=== PATIENT | male | born 1940 | race Caucasian/White ===

== ENCOUNTER 2017-03-15 14:42 | Inpatient (IN) ==
--- OUTSIDE RECORDS SUMMARY | 2017-03-15 16:07 | External Medical Summary | Continuity Of Care Document ---
:1940 Author Organization [facility] Address [address] [facility] [place] [address] Phone Care Team Providers Name Role Phone LAUREN JAMES, HARMONY Attending Provider CORY JAMES, JOHN Gay Primary Care Provider Results Lab Results Visit/Account #[id number] (October 05, 2016 8:21pm - October 06, 2016 12:46am) Test Result Date/Time CBC WITH REFLEXED MANUAL DIFF WHITE BLOOD COUNT(4.0-11.0 10E3/UL) 14.8 10E3/UL October 05, 2016 8:45pm RED BLOOD COUNT(4.50-5.90 10E6/UL) 4.54 10E6/UL October 05, 2016 8:45pm HEMOGLOBIN(13.5-17.5 G/DL) 14.2 G/DL October 05, 2016 8:45pm HEMATOCRIT(41.0-53.0 %) 43.0 % October 05, 2016 8:45pm MEAN CORPUSCULAR VOLUME(82.0-100.0 FL) 94.7 FL October 05, 2016 8:45pm MEAN CORPUSCULAR HEMOGLOBIN(26.0-34.0 PG) 31.3 PG October 05, 2016 8:45pm MEAN CORPUSCULAR HGB CONC(31.5-36.5 G/DL) 33.0 G/DL October 05, 2016 8:45pm RED CELL DISTRIBUTION WIDTH(11.5-14.5 %) 15.9 % October 05, 2016 8:45pm 777-3: PLATELET COUNT(150-450 10E3/UL) 268 10E3/UL October 05, 2016 8:45pm MEAN PLATELET VOLUME(8.2-12.4 FL) 9.6 FL October 05, 2016 8:45pm DIFF TYPE MANUAL October 05, 2016 8:45pm NEUTROPHIL % (MANUAL)(40-70 %) 79 % October 05, 2016 8:45pm BANDS%(0-3 %) 3 % October 05, 2016 8:45pm LYMPHOCYTES % (MANUAL)(15-45 %) 4 % October 05, 2016 8:45pm MONOCYTES % (MANUAL)(2-10 %) 8 % October 05, 2016 8:45pm EOSINOPHILS % (MANUAL)(0-6 %) 2 % October 05, 2016 8:45pm BASOPHILS % (MANUAL)(0-1 %) 0 % October 05, 2016 8:45pm METAMYELOCYTES %(0-0 %) 4 % October 05, 2016 8:45pm NUCLEATED RBCS (MANUAL)(0-0 %) 0 % October 05, 2016 8:45pm NEUTROPHILS # (MANUAL)(2.5-7.5 10E3/UL) 12.1 10E3/UL October 05, 2016 8:45pm LYMPHOCYTES # (MANUAL)(1.0-4.0 10E3/UL) 0.6 10E3/UL October 05, 2016 8:45pm MONOCYTES # (MANUAL)(0.2-0.8 10E3/UL) 1.2 10E3/UL October 05, 2016 8:45pm EOSINOPHILS # (MANUAL)(0.0-0.4 10E3/UL) 0.3 10E3/UL October 05, 2016 8:45pm BASOPHILS # (MANUAL)(0.0-0.2 10E3/UL) 0.0 10E3/UL October 05, 2016 8:45pm IMMATURE MYELOID CELLS #(0-0 10E3/UL) 0.6 10E3/UL October 05, 2016 8:45pm PLATELET ESTIMATE ADEQUATE October 05, 2016 8:45pm WBC MORPHOLOGY COMMENT NORMAL October 05, 2016 8:45pm RBC MORPHOLOGY COMMENT NORMAL October 05, 2016 8:45pm PLATELET MORPHOLOGY COMMENT NORMAL October 05, 2016 8:45pm PROTHROMBIN TIME WITH INR PROTHROMBIN TIME(12.1-14.0 SEC) 29.8 SEC October 05, 2016 8:45pm 50577-6: INR 2.8 October 05, 2016 8:45pm PARTIAL THROMBOPLASTIN TIME PARTIAL THROMBOPLASTIN TIME(22.2-37.4 SEC) 29.4 SEC October 05, 2016 8:45pm COMPLETE METABOLIC PROFILE GLUCOSE(70-110 MG/DL) 117 MG/DL October 05, 2016 8:45pm BLOOD UREA NITROGEN(6-20 MG/DL) 21 MG/DL October 05, 2016 8:45pm CREATININE(0.50-1.20 MG/DL) 0.70 MG/DL October 05, 2016 8:45pm EST GLOMERULAR FILTRATION RATE(Greater than or equal to 60) Greater than or equal to 60 October 05, 2016 8:45pm Result Comments: If the patient is of -[place] descent/extraction multiply the eGFR value by 1.212 to obtain the actual eGFR. >=60 mg/dL Normal 30-59 mg/dL Moderate Kidney Disease 15-29 mg/dL Severe Kidney Disease <15 mg/dL Kidney Failure BUN CREATININE RATIO(10.0-20.0 RATIO) 30.0 RATIO October 05, 2016 8:45pm SODIUM(135-145 MMOL/L) 133 MMOL/L October 05, 2016 8:45pm POTASSIUM(3.6-5.0 MMOL/L) 4.7 MMOL/L October 05, 2016 8:45pm CHLORIDE(101-111 MMOL/L) 89 MMOL/L October 05, 2016 8:45pm CO2(21-31 MMOL/L) 34 MMOL/L October 05, 2016 8:45pm ANION GAP(8-18) 15 October 05, 2016 8:45pm OSMO CALCULATED(270.0-290.0) 270.4 October 05, 2016 8:45pm CALCIUM(8.5-10.5 MG/DL) 8.8 MG/DL October 05, 2016 8:45pm BILIRUBIN,TOTAL(0.1-1.2 MG/DL) 0.5 MG/DL October 05, 2016 8:45pm ALKALINE PHOSPHATASE(42-121 IU/L) 59 IU/L October 05, 2016 8:45pm ASPARTATE AMINO TRANSFERASE(10-42 IU/L) 30 IU/L October 05, 2016 8:45pm ALANINE AMINOTRANSFERASE(10-60 IU/L) 25 IU/L October 05, 2016 8:45pm TOTAL PROTEIN(6.4-8.2 G/DL) 7.5 G/DL October 05, 2016 8:45pm ALBUMIN(3.5-5.5 G/DL) 3.2 G/DL October 05, 2016 8:45pm GLOBULIN(2.4-3.6) 4.3 October 05, 2016 8:45pm ALBUMIN/GLOBULIN RATIO(0.9-1.8 RATIO) 0.7 RATIO October 05, 2016 8:45pm CARDIAC TROPONIN I CARDIAC TROPONIN I(0.01-0.04 NG/ML) 0.06 NG/ML October 05, 2016 8:45pm Result Comments: REFERENCE RANGES: NEGATIVE < 0.04 NG/ML POSSIBLE MYCARDIAL INVOLVEMENT >/=0.04 NG/ML INTERPRET TROPONIN I RESULT IN LIGHT OF THE TOTAL CLINICAL PRESENTATION INCLUDING CLINICAL HISTORY. ANY CONDITION RESULTING IN MYOCARDIAL INJURY CAN POTENTIALLY ELEVATE TROPONIN I LEVELS ABOVE EXPECTED NORMAL RANGES. NOTE NEW REFERENCE RANGE BETA NATRIURETIC PEPTIDE BETA NATRIURETIC PEPTIDE(0-100 PG/ML) 70 PG/ML October 05, 2016 8:45pm Allergies and Adverse Reactions Allergies and Adverse Reactions Patient Unit Number: [id number] Agent Type Reaction Severity Status IODINATED CONTRAST- ORAL AND IV DYE Drug Allergy throat started to close Severe Active METHOTREXATE Drug Adverse Reaction SKIN CANCERS Severe Active CLAVULANIC ACID Drug Allergy Unknown Unknown Active SULFASALAZINE Drug Allergy caused A-Fib Moderate Active CIPROFLOXACIN Drug Allergy Unknown Unknown Active INFLUENZA VIRUS VACCINE, SPECIFIC Drug Allergy sick for 3 months Moderate Active FAMOTIDINE Drug Allergy Unknown Unknown Active AMOXICILLIN Drug Allergy Unknown Mild Active VANCOMYCIN Drug Allergy rash Moderate Active HYDROXYCHLOROQUINE Drug Allergy sores on legs, feet and mouth Severe Active DRONEDARONE Drug Allergy Unknown Unknown Active Problem List Problem List Patient Unit Number: [id number] Chronic Problems: Code/Condition Comments Documented Start Documented Code(s) Date Resolved Date Rheumatoid arthritis ICD10: M06.9 Rheumatoid arthritis SNOMED: 29505607 Rheumatoid arthritis Non-pressure chronic ulcer of right lower leg, 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 ICD10: L97.911 Non-pressure chronic ulcer of right lower leg, 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eakdown of skin SNOMED: 619901133 Non-pressure chronic ulcer of right lower leg, 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eakdown of skin Lymphedema of both lower extremities ICD10: I89.0 Lymphedema of both lower extremities SNOMED: 69351858454474124 Lymphedema of both lower extremities Elevated LFTs ICD10: R94.5 Elevated LFTs SNOMED: 833002049 Elevated liver function tests Rheumatoid arthritis ICD10: M06.9 Rheumatoid arthritis SNOMED: 91189338 Rheumatoid arthritis Chronic anticoagulation ICD10: Z79.01 Chronic 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 Obstructive sleep apnea on CPAP ICD10: G47.33 Obstructive sleep apnea on CPAP SNOMED: 96614713 Obstructive sleep apnea treated with continuous positive airway pressure (C Hyponatremia ICD10: E87.1 Hyponatremia SNOMED: 71424863 Hyponatremia Bloating ICD10: R14.0 Bloating SNOMED: 630480957 Abdominal bloating Cellulitis ICD10: L03.90 Cellulitis SNOMED: 629207704 Cellulitis 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: 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 SNOMED: 342541119 Squamous cell carcinoma of left lower leg Chronic constipation ICD10: K59.00 Chronic constipation SNOMED: 562903822 Chronic constipation Severe protein-calorie malnutrition ICD10: E43 Severe protein-calorie malnutrition SNOMED: 123033010 Severe protein-calorie malnutrition ([place]han: less than 60% of standard weigh Morbid obesity with BMI of 50.0-59.9, adult ICD10: E66.01 Morbid obesity with BMI of 50.0-59.9, adult SNOMED: 961654835 Morbid obesity with body mass index (BMI) of 50.0 to 59.9 in adult Urinary frequency ICD10: R35.0 Urinary frequency SNOMED: 459587984 Increased frequency of urination Basal cell carcinoma of scalp ICD10: C44.41 Basal cell carcinoma of scalp SNOMED: 957745295 Basal cell carcinoma of scalp Chronic ulcer of leg ICD10: L97.909 Chronic ulcer of leg SNOMED: 72040435 Chronic ulcer of lower extremity Traumatic open wound of lower leg ICD10: S81.809A Traumatic open wound of lower leg SNOMED: 734041283 Traumatic open wound of lower leg AAA (abdominal aortic aneurysm) without rupture ICD10: I71.4 AAA ( abdominal aortic aneurysm) without rupture SNOMED: 29969738 Abdominal aortic aneurysm without rupture Atrial fibrillation ICD10: I48.91 Atrial fibrillation SNOMED: 87258275 Atrial fibrillation Urinary retention ICD10: R33.9 Urinary retention SNOMED: 173488455 Retention of urine Plan of Care Plan Of Care Visit/Account #[id number] (October 05, 2016 8:21pm - October 06, 2016 12:46am) Patient Instructions Return if worse or any concern. Follow-up with your PCP early next week for further evaluation and care. Vital Signs Vital Signs Visit/Account #[id number] (October 05, 2016 8:21pm - October 06, 2016 12:46am) Sign First Result Last Result Code(s) Temperature in Fahrenheit Temperature (Fahrenheit): 98.6 [degF] On September 8:19pm Temperature (Fahrenheit): 98.4 [degF] On October 06, 2016 12: 45am 8310-5 Body Temperature Functional Status Functional and Cognitive Status No Functional Status Data Medications Inpatient/Ordered Medications - Medications administered during hospital visit Visit/Account #[id number] (October 05, 2016 8:21pm - October 06, 2016 12:46am) Medication Route Sig/Schedule Precondition/Indication Comments/ Instructions Codes LASIX INJ(FUROSEMIDE) 100 MG/10 ML INJECTION INTRAVEN NOW Label Comments: 10 ML Furosemide 10 MG/ML Injection (RxNorm): 5052659 Dose: 8 ML MAY INCREASE FALL RISK LASIX INJ (FUROSEMIDE) NDC: 74746585587 Discharge Medications - Medications that patient should continue to take. Review with physician Visit/Account #[id number] (October 05, 2016 8:21pm - October 06, 2016 12:46am) Medication Route Sig/Schedule Precondition/Indication Comments/ Instructions Codes LASIX(FUROSEMIDE) 80 MG TABLET ORAL TWICE A DAY Furosemide 80 MG Oral Tablet [Lasix] (RxNorm): 788025 Dose: 80 MG LASIX (FUROSEMIDE) NDC: 99779491523 ALDACTONE(SPIRONOLACTONE) 50 MG TABLET ORAL DAILY Spironolactone 50 MG Oral Tablet [Aldactone] (RxNorm): 850160 Dose: 50 MG ALDACTONE (SPIRONOLACTONE) NDC: 36036136105 History Of Encounters Encounters Visit/Account #[id number] (October 05, 2016 8:21pm - October 06, 2016 12:46am) Account Physican Of Reason For Visit Diagnosis Start Date/Time Stop Date/ Time Status Record Visit ER HARMOYN AGUILAR MD ANKLE SWELLING Not Available Oct 05, 2016 8:21pm Oct 06, 2016 12:46am History of Procedures Procedure List No procedures recorded. Discharge Instructions Discharge Instructions Visit/Account #[id number] (October 05, 2016 8:21pm - October 06, 2016 12:46am) DISCHARGE INSTRUCTIONS Physician Documentation Social History Social History No Social History Data. Immunizations Immunizations Patient Unit Number: [id number] Immunizations No immunizations recorded.
--- OUTSIDE RECORDS SUMMARY | 2017-03-15 16:07 | External Medical Summary | Summary of Care ---
:1940 Author Name Chrissy Estrada Address [address] Unavailable [place], [place] [id number] Care Team Providers Name Role Phone Chrissy Estrada Unavailable Unavailable Zach Oliver M.D. Unavailable Unavailable Trae Pearson Primary Care Provider Unavailable Unavailable Unavailable Unavailable Functional Status Functional Status Health Issues Name Dates Details Functional status health issues are not documented Status: Cognitive Status Health Issues Name Dates Details Cognitive status health issues are not documented Status: Problems Name Dates Details Post-operative infection (998.59, T81.4XXA) Status: Active Squamous cell carcinoma of scalp (173.42, C44.42) Status: Active Skin ulcer of right ankle, 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eakdown of skin (707.13, L97.311) Status: Active Actinic keratosis (702.0, L57.0) Status: Active Medications Name Dates Details CoQ-10 400 MG Oral Capsule TAKE 1 CAPSULE DAILY WITH A MEAL. Refills: 0 Started 22-Jan-2015 ActiveCalcium 250 MG Oral Capsule Refills: 0 Started 22-Jan-2015 ActiveMagnesium Oxide 250 MG Oral Tablet Refills: 0 Started 22-Jan-2015 ActiveVitamin D3 1000 UNIT Oral Capsule Refills: 0 Started 22-Jan-2015 ActiveAscorbic Acid 1000 MG Oral Tablet TAKE 1 TABLET DAILY. Refills: 0 Started 22-Jan-2015 ActiveTrexall 10 MG Oral Tablet 2.5 tablets weekly Refills: 0 Started 22-Jan-2015 ActiveBumetanide 2 MG Oral Tablet TAKE 2 TABLET Weekly Refills: 0 Started 22-Jan-2015 ActiveTraMADol HCl - 50 MG Oral Tablet TAKE 2 TABLETS EVERY 6 HOURS. Refills: 0 Started 22-Jan-2015 ActiveFolic Acid 1 MG Oral Tablet Refills: 0 Started 22-Jan-2015 ActiveZinc 100 MG Oral Tablet Refills: 0 Started 22-Jan-2015 ActiveWarfarin Sodium 5 MG Oral Tablet TAKE 1 TABLET EVERY OTHER DAY. Quantity: 30 Refills: 0 Started 22-Jan-2015 ActivePredniSONE 5 MG Oral Tablet Refills: 0 Started 22-Jan-2015 ActiveAspirin 81 MG Oral Tablet Refills: 0 Started 22-Jan-2015 ActiveBacitracin 500 UNIT/GM External Ointment APPLY SPARINGLY TO AFFECTED AREA(S) 3 TIMES A DAY x 10 days and as prn Quantity: 1 Refills: 0 Zach Oliver M.D. Started 03-Feb-2015 [id number] GM Tube Hydrocodone-Acetaminophen 10-325 MG Oral Tablet TAKE 1 TABLET EVERY 4 TO 6 HOURS NEEDED FOR PAIN. Quantity: 60 Refills: 0 Zach Oliver M.D. Started 10-Feb-2015 ActiveClindamycin Phosphate 1 % External Gel APPLY AND GENTLY MASSAGE INTO AFFECTED AREA(S) TWICE DAILY. Quantity: 1 Refills: 1 Zach Oliver M.D. Started 17-Mar-2015 [id number] GM Tube Clindamycin HCl - 150 MG Oral Capsule TAKE 1 CAPSULE 3 times daily Quantity: 270 Refills: 0 Zach Oliver M.D. Started 14-Apr-2015 ActiveNormal Saline Flush 0.9 % Intravenous Solution use as directoed Refills: 0 Zach Oliver M.D. Started 02-Jun-2015 ActiveMupirocin 2 % External Ointment APPLY SPARINGLY TO AFFECTED AREA(S) TWICE DAILY Quantity: 1 Refills: 2 Chrissy Chen Started 02-Jun-2015 [id number] GM Tube Allergies and Adverse Reactions Name Dates Details hydroxychloroquine Status: Active Influenza Virus Vaccine Whole Status: Active Iodine SOLN Status: Active Penicillins Status: Active Sulfa Drugs Status: Active Past Medical History Name Dates Details History of malignant neoplasm of skin (V10.83, Z85.828) Status: Resolved Procedures Procedure Dates Details Procedures not documented Immunization Name Dates Details Immunizations not documented Family History Unknown Family Member Name Dates Details No pertinent family history Comments: Family History Status: Active Mother Name Dates Details No pertinent family history Status: Active Father Name Dates Details No pertinent family history Status: Active Social History Name Dates Details Smoking StatusFormer smoker Vital Signs Date Test Result Details No Known Vitals to report Results Date Description Value Details Results not documented Plan of Care Planned Observations Name Dates Details Planned Goals not documented Goal Planned Encounters Appointment; Provider: Chrissy Chen On 15:30 Instructions Instructions not documented Encounters Appointment; Chrissy Chen On 02-Jun-2015 Encounter Diagnosis: Problem not documented 15:15 Appointment; Zach Oliver On 02-Jun-2015 Encounter Diagnosis: Problem not documented 13:45 Appointment; Zach Oliver On 14-Apr-2015 Encounter Diagnosis: Problem not documented 14:45 Appointment; Zach Oliver On 17-Mar-2015 Encounter Diagnosis: Problem not documented 14:30 Appointment; Zach Oliver On 03-Mar-2015 Encounter Diagnosis: Problem not documented 15:15 Appointment; Zach Oliver On 24-Feb-2015 Encounter Diagnosis: Problem not documented 14:00 Appointment; Zach Oliver On 17-Feb-2015 Encounter Diagnosis: Problem not documented 13:00 Appointment; Zach Oliver On 10-Feb-2015 Encounter Diagnosis: Problem not documented 14:30 Appointment; Zach Oliver On 03-Feb-2015 Encounter Diagnosis: Problem not documented 14:15 Appointment; Zach Oliver On 22-Jan-2015 Encounter Diagnosis: Problem not documented 14:30 Appointment; Chrissy Chen On 12-Jan-2015 Encounter Diagnosis: Problem not documented 15:00
--- OUTSIDE RECORDS SUMMARY | 2017-03-15 16:07 | External Medical Summary | Summary of Care ---
:1940 Author Name Zach Oliver M.D. Address [address] [place], [place] [id number] Care Team Providers Name Role Phone Zach Oliver M.D. Unavailable Unavailable rTae Pearson Primary Care Provider Unavailable Unavailable Unavailable Unavailable Functional Status Functional Status Health Issues Name Dates Details Functional status health issues are not documented Status: Cognitive Status Health Issues Name Dates Details Cognitive status health issues are not documented Status: Problems Name Dates Details Actinic keratosis (702.0, L57.0) Status: Active Post-operative infection (998.59, T81.4XXA) Status: Active Squamous cell carcinoma of scalp (173.42, C44.42) Status: Active Medications Name Dates Details CoQ-10 [...] Refills: 0 Zach Oliver M.D. Started 03-Feb-2015 [id number] GM Tube Hydrocodone-Acetaminophen 10-325 MG Oral Tablet TAKE 1 TABLET EVERY 4 TO 6 HOURS NEEDED FOR PAIN. Quantity: 60 Refills: 0 Zach Oliver M.D. Started 10-Feb-2015 ActiveClindamycin Phosphate 1 % External Gel APPLY AND GENTLY MASSAGE INTO AFFECTED AREA(S) TWICE DAILY. Quantity: 1 Refills: 1 Zach Oliver M.D. Started 17-Mar-2015 [id number] GM Tube Clindamycin HCl - 150 MG Oral Capsule TAKE 1 CAPSULE 3 times daily Quantity: 270 Refills: 0 Zach Oliver M.D. Started 14-Apr-2015 Active Allergies and Adverse Reactions Name Dates Details [...] smoker Vital Signs Date Test Result Details 14-Apr-2015 15:07 BP Systolic 145 mm[Hg] Status: BP Diastolic 93 mm[Hg] Status: Temperature 97.9 f Status: Heart Rate 89 /min Status: Height 68 in Status: Weight 275 lb Status: Body Mass Index Calculated 41.81 kg/m2 Status: Body Surface Area Calculated 2.34 m2 Status: 17-Mar-2015 14:45 BP Systolic 163 mm[Hg] Status: BP Diastolic 101 mm[Hg] Status: Heart Rate 73 /min Status: Respiration Rate 18 /min Status: Results Date Description Value Details Results not documented Plan of Care Planned Observations Name Dates Details Planned Goals not documented Goal Planned Encounters Appointment; Provider: Zach Oliver On 16-Jun-2015 14:00 Instructions Instructions not documented Encounters Appointment; Zach Oliver On 14-Apr-2015 Encounter Diagnosis: [...]
--- OUTSIDE RECORDS SUMMARY | 2017-03-15 16:07 | External Medical Summary | Summary of Care ---
:1940 Author Name Chrissy Estrada Address [address] Unavailable [place], [place] [id number] Care Team Providers Name Role Phone Chrissy Estrada Unavailable Unavailable Benito Corona, Zach Unavailable Unavailable Trae Pearson Unavailable Unavailable Unavailable Unavailable Unavailable Functional Status Functional Status Health Issues Name Dates Details Functional status health issues are not documented Status: Cognitive Status Health Issues Name Dates Details Cognitive status health issues are not documented Status: Problems Name Dates Details Post-operative infection (998.59, T81.4XXA) Status: Active Skin ulcer of right ankle, 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eakdown of skin (707.13, L97.311) Status: Active Basal cell carcinoma of skin of face (173.31, C44.310) Status: Active 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 Refills: 0 Start 22-Jan-2015 Active Calcium 250 MG Oral Capsule Refills: 0 Start 22-Jan-2015 Active Magnesium Oxide 250 MG Oral Tablet Refills: 0 Start 22-Jan-2015 Active Vitamin D3 1000 UNIT Oral Capsule Refills: 0 Start 22-Jan-2015 Active Ascorbic Acid 1000 MG Oral Tablet TAKE 1 TABLET DAILY. Refills: 0 Start 22-Jan-2015 Active Trexall 10 MG Oral Tablet 2.5 tablets weekly Refills: 0 Start 22-Jan-2015 Active Bumetanide 2 MG Oral Tablet TAKE 2 TABLET Weekly Refills: 0 Start 22-Jan-2015 Active TraMADol HCl - 50 MG Oral Tablet TAKE 2 TABLETS EVERY 6 HOURS. Refills: 0 Start 22-Jan-2015 Active Folic Acid 1 MG Oral Tablet Refills: 0 Start 22-Jan-2015 Active Zinc 100 MG Oral Tablet Refills: 0 Start 22-Jan-2015 Active Warfarin Sodium 5 MG Oral Tablet TAKE 1 TABLET EVERY OTHER DAY. Quantity: 30 Refills: 0 Start 22-Jan-2015 Active PredniSONE 5 MG Oral Tablet Refills: 0 Start 22-Jan-2015 Active Aspirin 81 MG TABS Refills: 0 Start 22-Jan-2015 Active Bacitracin 500 UNIT/GM External Ointment APPLY SPARINGLY TO AFFECTED AREA(S) 3 TIMES A DAY x 10 days and as prn Quantity: 1 Refills: 0 Zach Oliver M.D. Start 03-Feb-2015 Active 30 GM Tube Hydrocodone-Acetaminophen 10-325 MG Oral Tablet TAKE 1 TABLET EVERY 4 TO 6 HOURS NEEDED FOR PAIN. Quantity: 60 Refills: 0 Zach Oliver M.D. Start 10-Feb-2015 Active Clindamycin Phosphate 1 % External Gel APPLY AND GENTLY MASSAGE INTO AFFECTED AREA(S) TWICE DAILY. Quantity: 1 Refills: 1 Zach Oliver M.D. Start 17-Mar-2015 Active 30 GM Tube Clindamycin HCl - 150 MG Oral Capsule TAKE 1 CAPSULE 3 times daily Quantity: 270 Refills: 1 Chrissy Estrada Start 14-Apr-2015 Active Normal Saline Flush 0.9 % Intravenous Solution use as directoed Refills: 0 Zach Oliver M.D. Start 02-Jun-2015 Active Mupirocin 2 % External Ointment APPLY SPARINGLY TO AFFECTED AREA(S) TWICE DAILY Quantity: 1 Refills: 2 April P.Chrissy Doan Start 02-Jun-2015 Active 22 GM Tube Fluorouracil 5 % External Cream APPLY A THIN LAYER TO AFFECTED AREA(S) ON FOREHEAD AND SCALP NIGHTLY x 4 WEEKS Quantity: 1 Refills: 1 April P.Chrissy Doan Start 10-May-2016 Active 40 GM Tube Allergies and Adverse Reactions Name Dates Details hydroxychloroquine (Allergy) Status: Active Influenza Virus Vaccine Whole (Allergy) Status: Active Iodine SOLN (Allergy) Status: Active Penicillins (Allergy) Status: Active Sulfa Drugs (Allergy) Status: Active Vancomycin HCl SOLR (Allergy) Status: Active Past Medical History Name Dates [...] Status: Active Social History Name Dates Details - Status: Smoking Status Name Dates Details Former smoker Vital Signs Date Test Result Details No Known Vitals to report Results Date Description Value Details Results not documented Plan of Care Name Dates Details Planned Observations Planned Goals not documented Planned Encounters Appointment; Provider: Wendy Guadarrama On 14:45 Interventions Provided Medication ChangesClindamycin HCl - 150 MG Oral Capsule - Renew Instructions Name Dates Details Instructions not documented Encounters Appointment; Chrissy Chen P.A. On 08-Jun-2016 Encounter Diagnosis: Problem not documented 14:45 Appointment; Reji Comer M.D.|ALEJANDRO|Chloe,ALEJANDRO|hCloe,ALEJANDRO, On 23-May-2016 Encounter Diagnosis: Problem not documented 14:45 Appointment; Chrissy Chen P.A. On 10-May-2016 Encounter Diagnosis: Problem not documented 15:00 Appointment; Chrissy Chen P.A. On 22-Mar-2016 Encounter Diagnosis: Problem not documented 13:00 Appointment; Chrissy Chen P.A. On 08-Feb-2016 Encounter Diagnosis: Problem not documented 14:45 Appointment; Chrissy Chen P.A. On 14-Dec-2015 Encounter Diagnosis: Problem not documented 14:30 Appointment; Ghulam Veras M.D. On 22-Nov-2015 Encounter Diagnosis: Problem not documented 13:00 Appointment; Ghulam Veras M.D. On 10-Nov-2015 Encounter Diagnosis: Problem not documented 13:30 Appointment; Chrissy Chen P.A. On Encounter Diagnosis: Problem not documented 15:30 Appointment; Chrissy Chen P.A. On 02-Jun-2015 Encounter Diagnosis: Problem not documented 15:15 Appointment; Zach Oliver M.D. On 02-Jun-2015 Encounter Diagnosis: Problem not documented 13:45 Appointment; Zach Oliver M.D. On 14-Apr-2015 Encounter Diagnosis: Problem not documented 14:45 Appointment; Zach Oliver M.D. On 17-Mar-2015 Encounter Diagnosis: Problem not documented 14:30 Appointment; Zach Olvier M.D. On 03-Mar-2015 Encounter Diagnosis: Problem not documented 15:15 Appointment; Zach Oliver M.D. On 24-Feb-2015 Encounter Diagnosis: Problem not documented 14:00 Appointment; Zach Oliver M.D. On 17-Feb-2015 Encounter Diagnosis: Problem not documented 13:00 Appointment; Zach Oliver M.D. On 10-Feb-2015 Encounter Diagnosis: Problem not documented 14:30 Appointment; Zach Oliver M.D. On 03-Feb-2015 Encounter Diagnosis: Problem not documented 14:15 Appointment; Zach Oliver M.D. On 22-Jan-2015 Encounter Diagnosis: Problem not documented 14:30 Appointment; Chrissy Chen P.A. On 12-Jan-2015 Encounter Diagnosis: Problem not documented 15:00"
[2017-03-15] MEDS ORDERED: WARFARIN - PHARMACY CONSULT MC ONE (16:08)
--- OUTSIDE RECORDS SUMMARY | 2017-03-15 16:08 | External Medical Summary | Summary of Care ---
:1940 Author Name Zach Oliver M.D. Address [address] [place], [place] [id number] Care Team Providers Name Role Phone Zach Oliver M.D. Unavailable Unavailable Trae Pearson [...] (998.59, T81.4XXA) Status: Active Squamous cell carcinoma (199.1, C80.1) Status: Active Medications Name Dates Details CoQ-10 [...] Refills: 0 Zach Oliver M.D. Started 03-Feb-2015 [id number] GM Tube Hydrocodone-Acetaminophen 10-325 MG Oral Tablet TAKE 1 TABLET EVERY 4 TO 6 HOURS NEEDED FOR PAIN. Quantity: 60 Refills: 0 Zach Oliver M.D. Started 10-Feb-2015 Active Allergies and Adverse Reactions Name Dates Details hydroxychloroquine Status: Active Influenza Virus Vaccine Whole Status: Active Iodine SOLN Status: Active Penicillins Status: Active Sulfa Drugs Status: Active Procedures Procedure Dates Details Procedures not documented [...] smoker Vital Signs Date Test Result Details 03-Feb-2015 13:47 BP Systolic 158 mm[Hg] Status: BP Diastolic 88 mm[Hg] Status: Temperature 97.7 f Status: Heart Rate 90 /min Status: Height 68 in Status: Weight 278.5 lb Status: Body Mass Index Calculated 42.35 kg/m2 Status: Body Surface Area Calculated 2.35 m2 Status: Results Date Description Value Details Results not documented Plan of Care Planned Observations Name Dates Details Planned Goals not documented Goal Planned Encounters Appointment; Provider: Zach Oliver On 03-Mar-2015 15:15 Instructions Instructions not documented Encounters Appointment; Zach Oliver On 24-Feb-2015 Encounter Diagnosis: [...]
--- OUTSIDE RECORDS SUMMARY | 2017-03-15 16:08 | External Medical Summary | Summary of Care ---
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 Started 03-Feb-2015 [id number] GM Tube Hydrocodone-Acetaminophen 10-325 MG Oral Tablet TAKE 1 TABLET EVERY 4 TO 6 HOURS NEEDED FOR PAIN. Quantity: 60 Refills: 0 Zach Oliver M.D. Started 10-Feb-2015 ActiveClindamycin Phosphate 1 % External Gel APPLY AND GENTLY MASSAGE INTO AFFECTED AREA(S) TWICE DAILY. Quantity: 1 Refills: 1 Zach Oliver M.D. Started 17-Mar-2015 [id number] GM Tube Clindamycin HCl - 150 MG Oral Capsule TAKE 1 CAPSULE 3 times daily Quantity: 270 Refills: 0 Chrissy Chen P.ABrigid Started 14-Apr-2015 ActiveNormal Saline Flush 0.9 % Intravenous Solution use as directoed Refills: 0 Zach Oliver M.D. Started 02-Jun-2015 ActiveMupirocin 2 % External Ointment APPLY SPARINGLY TO AFFECTED AREA(S) TWICE DAILY Quantity: 1 Refills: 2 Chrissy Chen P.ABrigid Started 02-Jun-2015 [id number] GM Tube Allergies and Adverse Reactions Name [...] not documented Goal Planned Encounters Appointment; Provider: Ghulam Veras On 10-Nov-2015 13:30 Instructions Instructions not documented Encounters Appointment; Chrissy Chen On Encounter Diagnosis: Problem not documented 15:30 Appointment; Chrissy Chen On 02-Jun-2015 Encounter Diagnosis: [...]
--- OUTSIDE RECORDS SUMMARY | 2017-03-15 16:08 | External Medical Summary | Summary of Care ---
:1940 Author Name Zach Oliver M.D. Address [address], [place] [id number] Care Team Providers Name Role Phone Zach [...] EVERY 6 HOURS. Refills: 0 Started 22-Jan-2015 ActiveHydrocodone-Acetaminophen 7.5-325 MG Oral Tablet Refills: 0 Started 22-Jan-2015 ActiveFolic Acid 1 MG Oral Tablet Refills: 0 Started 22-Jan-2015 ActiveZinc 100 MG Oral Tablet Refills: 0 Started 22-Jan-2015 ActiveWarfarin Sodium 5 MG Oral Tablet TAKE 1 TABLET EVERY OTHER DAY. Quantity: 30 Refills: 0 Started 22-Jan-2015 ActivePredniSONE 5 MG Oral Tablet Refills: 0 Started 22-Jan-2015 ActiveAspirin 81 MG Oral Tablet Refills: 0 Started 22-Jan-2015 ActiveClindamycin HCl - 300 MG Oral Capsule TAKE 1 CAPSULE 3 times daily for 10 days Quantity: 30 Refills: 0 Zach Oliver M.D. Started 03-Feb-2015 Ended 13-Feb-2015 ActiveBacitracin 500 UNIT/GM External Ointment APPLY SPARINGLY TO AFFECTED AREA(S) 3 TIMES A DAY x 10 days and as prn Quantity: 1 Refills: 0 Zach Oliver M.D. Started 03-Feb-2015 [id number] GM Tube Allergies and Adverse Reactions Name [...] Body Surface Area Calculated 2.35 m2 Status: 22-Jan-2015 14:51 Temperature 97.8 f Status: Heart Rate 80 /min Status: Weight 280 lb Status: Results Date Description Value Details Results not documented Plan of Care Planned Observations Name Dates Details Planned Goals not documented Goal Planned Encounters Appointment; Provider: Zach Oliver On 10-Feb-2015 14:30 Instructions Instructions not documented Encounters Appointment; Zach Oliver On 03-Feb-2015 Encounter Diagnosis: Problem not documented 14:15 Appointment; Zach Oliver On 22-Jan-2015 Encounter Diagnosis: Problem not documented 14:30 Appointment; Chrissy Chen On 12-Jan-2015 Encounter Diagnosis: Problem not documented 15:00
--- OUTSIDE RECORDS SUMMARY | 2017-03-15 16:08 | External Medical Summary | Summary of Care ---
:1940 Author Name Nahomi Corona, ALEJANDRO, ,, F Reji Address Unavailable Unavailable , Care Team Providers Name Role Phone Chrissy Estrada Unavailable Unavailable Zach Oliver M.D. 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 Medications Name Dates Details CoQ-10 [...] 4 WEEKS Quantity: 1 Refills: 1 April P.hCrissy Doan Start 10-May-2016 Active 40 GM Tube Allergies and Adverse Reactions Name Dates Details hydroxychloroquine (Allergy) Status: Active Influenza Virus Vaccine Whole (Allergy) Status: Active Iodine SOLN (Allergy) Status: Active Penicillins (Allergy) Status: Active Sulfa Drugs (Allergy) Status: Active Past Medical History Name [...] smoker Vital Signs Date Test Result Details 23-May-2016 16:18 BP Systolic 138 mm[Hg] Status: Comments: Location: ; Position: BP Diastolic 71 mm[Hg] Status: Comments: Location: ; Position: Temperature 97.3 f Status: Comments: Method: Heart Rate 83 /min Status: Comments: Location: ; Weight 297 lb Status: Body Mass Index Calculated 45.16 kg/m2 Status: Body Surface Area Calculated 2.42 m2 Status: Results Date Description Value Details Results not documented Plan of Care Name Dates Details Planned Observations Planned Goals not documented Planned Encounters Appointment; Provider: Wendy Guadarrama On 21-Jun-2016 14:30 Appointment; Provider: Reji Comer M.D.|DEYSI,DEYSI,ALEJANDRO, On Jun-2016 14:00 Appointment; Provider: Wendy Guadarrama On 08-Jun-2016 14:45 Instructions Name Dates Details Instructions not documented Encounters Appointment; Chrissy Chen P.A. On 10-May-2016 Encounter [...] documented 14:30 Appointment; Zach Oliver M.D. On 03-Mar-2015 Encounter Diagnosis: Problem not [...]
--- OUTSIDE RECORDS SUMMARY | 2017-03-15 16:08 | External Medical Summary | Summary of Care ---
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 Start 02-Jun-2015 Active Mupirocin 2 % External Ointment APPLY SPARINGLY TO AFFECTED AREA(S) TWICE DAILY Quantity: 1 Refills: 2 April P.A.Chrissy Start 02-Jun-2015 Active 22 GM Tube Allergies and Adverse Reactions Name Dates Details hydroxychloroquine (Allergy) Status: Active Influenza Virus Vaccine Whole (Allergy) Status: Active Iodine SOLN (Allergy) Status: Active Penicillins (Allergy) Status: Active Sulfa Drugs (Allergy) Status: Active Past Medical History Name Dates Details History of malignant neoplasm of skin (V10.83, Z85.828) Status: Resolved Procedures Procedure Dates Details ULTRASOUND LEG VEINS RIGHT Ordered: 22-Mar-2016 Immunization Name Dates Details Immunizations not documented [...] Details Planned Observations Planned Goals not documented Interventions Provided Medication ChangesClindamycin HCl - 150 MG Oral Capsule - RenewLabs/Procedures/ ImagingULTRASOUND LEG VEINS RIGHT; To be Done: 22 Mar 2016 Instructions Name Dates Details Instructions not documented Encounters Appointment; Chrissy Chen P.A. On 08-Feb-2016 Encounter [...]
--- OUTSIDE RECORDS SUMMARY | 2017-03-15 16:09 | External Medical Summary | Summary of Care ---
:1940 Author Name Chrissy Estrada Address [address] Unavailable [place], [place] [id number] Care Team Providers Name Role Phone Chrissy [...] Squamous cell carcinoma of skin of left samaritan (173.32, C44.329) Status: Active Squamous cell carcinoma [...] 4 WEEKS Quantity: 1 Refills: 1 April Lepe.Chrissy Doan Start 10-May-2016 Active 40 GM Tube [...] Planned Encounters Appointment; Provider: Wendy Guadarrama On 15:30 Instructions Name Dates Details Instructions not documented Encounters Appointment; Chrissy Chen P.A. On 12-Jul-2016 Encounter Diagnosis: Problem not documented 15:15 Appointment; Chrissy Chen P.A. On 08-Jun-2016 Encounter Diagnosis: Problem not documented 14:45 Appointment; Reji Comer M.D.|COCOP|Chloe,FACP|Chloe,FACP, On 23-May-2016 Encounter Diagnosis: Problem not documented [...]
--- OUTSIDE RECORDS SUMMARY | 2017-03-15 16:09 | External Medical Summary | Continuity Of Care Document ---
:1940 Author Organization [facility] Address [address] [place] [address] Phone Care Team Providers Name Role Phone JAN JAMES, CRISTEL Garcia Consulting Provider UNASSIGNED, ED PHYSICIAN Unavailable Unavailable KOKO JAMES, STACEY Mike Consulting Provider CORY JAMES, JOHN Gay Primary Care Provider SANDY JAMES, ARASELI Mike Attending Provider Results Lab Results Visit/Account #[id number] (April 10, 2016 10:06pm - April 13, 2016 3: 56pm) Test Result Date/Time CREATININE,POINT OF CARE POC CREATININE(0.6-1.3 MG/DL) 0.8 MG/DL April 10, 2016 10:27pm 98471-2: EST GLOMERULAR FILTRATION RATE(Greater than or equal to 60) Greater than 60 April 10, 2016 10:27pm POC LACTIC ACID VENOUS POC LACTIC ACID VENOUS(0.90-1.70 MMOL/L) 3.70 MMOL/L April 10, 2016 10: 25pm 1.58 MMOL/L April 11, 2016 12:38am 20576-9: COMPLETE BLOOD COUNT WITH DIFF WHITE BLOOD COUNT(4.0-11.0 10E3/UL) 13.5 10E3/UL April 10, 2016 10:26pm RED BLOOD COUNT(4.50-5.90 10E6/UL) 5.09 10E6/UL April 10, 2016 10:26pm HEMOGLOBIN(13.5-17.5 G/DL) 15.3 G/DL April 10, 2016 10:26pm HEMATOCRIT(41.0-53.0 %) 48.0 % April 10, 2016 10:26pm MEAN CORPUSCULAR VOLUME(82.0-100.0 FL) 94.3 FL April 10, 2016 10:26pm 63588-7: MEAN CORPUSCULAR HEMOGLOBIN(26.0-34.0 PG) 30.1 PG April 10, 2016 10:26pm MEAN CORPUSCULAR HGB CONC(31.5-36.5 G/DL) 31.9 G/DL April 10, 2016 10:26pm RED CELL DISTRIBUTION WIDTH(11.5-14.5 %) 15.8 % April 10, 2016 10:26pm 777-3: PLATELET COUNT(150-450 10E3/UL) 170 10E3/UL April 10, 2016 10:26pm MEAN PLATELET VOLUME(8.2-12.4 FL) 9.9 FL April 10, 2016 10:26pm 770-8: NEUTROPHILS % (AUTO)(40-70 %) 86 % April 10, 2016 10:26pm LYMPHOCYTES % (AUTO)(15-45 %) 5 % April 10, 2016 10:26pm 5905-5: MONOCYTES % (AUTO)(2-10 %) 6 % April 10, 2016 10:26pm 713-8: EOSINOPHILS % (AUTO)(0-6 %) 0 % April 10, 2016 10:26pm 706-2: BASOPHILS % (AUTO)(0-1 %) 0 % April 10, 2016 10:26pm 72995-9: IMMATURE GRANS % (AUTO)(0-0 %) 2 % April 10, 2016 10:26pm NUCLEATED RBCS (AUTO)(0-0 %) 0 % April 10, 2016 10:26pm 751-8: NEUTROPHILS # (AUTO)(2.5-7.5 10E3/UL) 11.6 10E3/UL April 10, 2016 10:26pm 92909-2: LYMPHOCYTES # (AUTO)(1.0-4.0 10E3/UL) 0.7 10E3/UL April 10, 2016 10:26pm 742-7: MONOCYTES # (AUTO)(0.2-0.8 10E3/UL) 0.8 10E3/UL April 10, 2016 10: 26pm 711-2: EOSINOPHILS # (AUTO)(0.0-0.4 10E3/UL) 0.1 10E3/UL April 10, 2016 10 :26pm 704-7: BASOPHILS # (AUTO)(0.0-0.2 10E3/UL) 0.0 10E3/UL April 10, 2016 10: 26pm IMMATURE GRANS # (AUTO)(0.0-0.0 10E3/UL) 0.3 10E3/UL April 10, 2016 10: 26pm DIFF TYPE AUTOMATED April 10, 2016 10:26pm COMPLETE BLOOD COUNT WHITE BLOOD COUNT(4.0-11.0 10E3/UL) 10.3 10E3/UL April 12, 2016 6:48am RED BLOOD COUNT(4.50-5.90 10E6/UL) 4.17 10E6/UL April 12, 2016 6:48am HEMOGLOBIN(13.5-17.5 G/DL) 12.6 G/DL April 12, 2016 6:48am HEMATOCRIT(41.0-53.0 %) 39.7 % April 12, 2016 6:48am MEAN CORPUSCULAR VOLUME(82.0-100.0 FL) 95.2 FL April 12, 2016 6:48am 26268-1: MEAN CORPUSCULAR HEMOGLOBIN(26.0-34.0 PG) 30.2 PG April 12, 2016 6:48am MEAN CORPUSCULAR HGB CONC(31.5-36.5 G/DL) 31.7 G/DL April 12, 2016 6:48am RED CELL DISTRIBUTION WIDTH(11.5-14.5 %) 15.8 % April 12, 2016 6:48am 777-3: PLATELET COUNT(150-450 10E3/UL) 135 10E3/UL April 12, 2016 6:48am MEAN PLATELET VOLUME(8.2-12.4 FL) 9.7 FL April 12, 2016 6:48am NUCLEATED RBCS (AUTO)(0-0 %) 0 % April 12, 2016 6:48am 59090-9: PROTHROMBIN TIME WITH INR PROTHROMBIN TIME(12.1-14.0 SEC) 15.6 SEC April 10, 2016 10:26pm 26664-1: INR 1.24 April 10, 2016 10:26pm Result Comments: INR reference interval applies to patients on anticoagulant therapy. Suggested INR therapeutic range for oral anticoagulant therapy: (Stabilized anticoagulated patients) Routine Therapy: 2.0 to 3.0 Recurrent Myocardial Infarction: 2.5 to 3.5 Mechanical Prosthetic Valves: 2.5 to 3.5 PARTIAL THROMBOPLASTIN TIME PARTIAL THROMBOPLASTIN TIME(22.2-37.4 SEC) 22.5 SEC April 10, 2016 10:26pm UA WITH SCREEN FOR CULTURE 5778-6: COLOR,URINE DARK YELLOW April 10, 2016 11:20pm 40983-7: CLARITY,URINE CLEAR April 10, 2016 11:20pm GLUCOSE, URINE(NEGATIVE MG/DL) NEGATIVE MG/DL April 10, 2016 11:20pm URINE BILIRUBIN(NEGATIVE) MODERATE April 10, 2016 11:20pm KETONES,URINE(NEGATIVE MG/DL) NEGATIVE MG/DL April 10, 2016 11:20pm URINE SPECIFIC GRAVITY(1.001-1.035) 1.018 April 10, 2016 11:20pm 11678-2: URINE BLOOD(NEGATIVE) NEGATIVE April 10, 2016 11:20pm 2756-5: URINE PH(5.0-9.0) 7.0 April 10, 2016 11:20pm URINE PROTEIN(Less than 20 MG/DL) 30 MG/DL April 10, 2016 11:20pm 51250-5: URINE UROBILINOGEN(0.2-1.0 MG/DL) 2.0 MG/DL April 10, 2016 11: 20pm URINE NITRITE(NEGATIVE) POSITIVE April 10, 2016 11:20pm 5799-2: LEUKOCYTE ESTERASE ,URINE(NEGATIVE) NEGATIVE April 10, 2016 11: 20pm URINE RBCS(0-3 /HPF) 8-12 /HPF April 10, 2016 11:20pm URINE WBCS(0-3 /HPF) 0-3 /HPF April 10, 2016 11:20pm URINE EPITHELIAL CELLS(0-3 /HPF) 0-3 /HPF April 10, 2016 11:20pm URINE HYALINE CASTS(0-3 /LPF) 0-3 /LPF April 10, 2016 11:20pm URINE BACTERIA(NEGATIVE /HPF) NEGATIVE /HPF April 10, 2016 11:20pm 630-4: URINE CULTURE TO FOLLOW April 10, 2016 11:20pm URINE MICROSCOPIC REQUIRED YES April 10, 2016 11:20pm 23024-9: COMPLETE METABOLIC PROFILE GLUCOSE(70-110 MG/DL) 92 MG/DL April 10, 2016 10:26pm 113 MG/DL April 12, 2016 6:48am BLOOD UREA NITROGEN(6-20 MG/DL) 20 MG/DL April 10, 2016 10:26pm 17 MG/DL April 12, 2016 6:48am CREATININE(0.50-1.20 MG/DL) 0.71 MG/DL April 10, 2016 10:26pm 0.67 MG/DL April 12, 2016 6:48am 05973-4: EST GLOMERULAR FILTRATION RATE(Greater than or equal to 60) Greater than or equal to 60 April 10, 2016 10:26pm Result Comments: If the patient is of -Turk[place] descent/extraction multiply the eGFR value by 1.212 to obtain the actual eGFR. >=60 mg/dL Normal 30-59 mg/dL Moderate Kidney Disease 15-29 mg/dL Severe Kidney Disease <15 mg/dL Kidney Failure Greater than or equal to 60 April 12, 2016 6:48am Result Comments: If the patient is of -Turk[place] descent/extraction multiply the eGFR value by 1.212 to obtain the actual eGFR. >=60 mg/dL Normal 30-59 mg/dL Moderate Kidney Disease 15-29 mg/dL Severe Kidney Disease <15 mg/dL Kidney Failure BUN CREATININE RATIO(10.0-20.0 RATIO) 28.0 RATIO April 10, 2016 10:26pm 25.0 RATIO April 12, 2016 6:48am SODIUM(135-145 MMOL/L) 131 MMOL/L April 10, 2016 10:26pm 135 MMOL/L April 12, 2016 6:48am POTASSIUM(3.6-5.0 MMOL/L) 4.1 MMOL/L April 10, 2016 10:26pm 4.0 MMOL/L April 12, 2016 6:48am CHLORIDE(101-111 MMOL/L) 99 MMOL/L April 10, 2016 10:26pm 103 MMOL/L April 12, 2016 6:48am CO2(21-31 MMOL/L) 25 MMOL/L April 10, 2016 10:26pm 26 MMOL/L April 12, 2016 6:48am ANION GAP(8-18) 11 April 10, 2016 10:26pm 10 April 12, 2016 6:48am OSMO CALCULATED(270.0-290.0) 264.9 April 10, 2016 10:26pm 272.4 April 12, 2016 6:48am CALCIUM(8.5-10.5 MG/DL) 8.4 MG/DL April 10, 2016 10:26pm 8.3 MG/DL April 12, 2016 6:48am BILIRUBIN,TOTAL(0.1-1.2 MG/DL) 7.9 MG/DL April 10, 2016 10:26pm 3.2 MG/DL April 12, 2016 6:48am ALKALINE PHOSPHATASE(42-121 IU/L) 111 IU/L April 10, 2016 10:26pm 81 IU/L April 12, 2016 6:48am ASPARTATE AMINO TRANSFERASE(10-42 IU/L) 366 IU/L April 10, 2016 10:26pm 93 IU/L April 12, 2016 6:48am ALANINE AMINOTRANSFERASE(10-60 IU/L) 563 IU/L April 10, 2016 10:26pm 259 IU/L April 12, 2016 6:48am TOTAL PROTEIN(6.4-8.2 G/DL) 7.7 G/DL April 10, 2016 10:26pm 6.7 G/DL April 12, 2016 6:48am ALBUMIN(3.5-5.5 G/DL) 3.6 G/DL April 10, 2016 10:26pm 2.8 G/DL April 12, 2016 6:48am GLOBULIN(2.4-3.6) 4.1 April 10, 2016 10:26pm 3.9 April 12, 2016 6:48am ALBUMIN/GLOBULIN RATIO(0.9-1.8 RATIO) 0.9 RATIO April 10, 2016 10:26pm 0.7 RATIO April 12, 2016 6:48am 77071-7: BILIRUBIN TOTAL AND DIRECT BILIRUBIN,TOTAL(0.1-1.2 MG/DL) 7.4 MG/DL April 11, 2016 12:17pm 1968-7: BILIRUBIN DIRECT(0-0.2 MG/DL) 4.5 MG/DL April 11, 2016 12:17pm 3040-3: LIPASE 3040-3: LIPASE(22-51 U/L) 29 U/L April 10, 2016 10:22pm FERRITIN FERRITIN(23.9-336.2 NG/ML) 197.6 NG/ML April 11, 2016 12:17pm MONOTEST MONOTEST(NEGATIVE) NEGATIVE April 11, 2016 12:17pm HEPATITIS B & C PROFILE C PROFILE 16517-7: HEPATITIS B SURFACE AB(.) Non Reactive April 11, 2016 12:18pm Result Comments: Non Reactive: Inconsistent with immunity, less than 10 mIU/mL Reactive: Consistent with immunity, greater than 9.9 mIU/mL 5196-1: HEPATITIS B SURFACE AG SCREEN(Negative) Negative April 11, 2016 12 :18pm 35401-2: HEPATITIS B CORE AB TOTAL(Negative) Negative April 11, 2016 12: 18pm 10312-4: HEPATITIS C AB(0.0-0.9 s/co ratio) 0.1 s/co ratio April 11, 2016 12:18pm 50264-3: HEPATITIS A IGM 61328-4: HEPATITIS A IGM(Negative) Negative April 11, 2016 12:18pm Result Comments: Performed at: [address] [id number] Habitat Biologist: KINSEY Madison MD, Phone: [phone] EBV ACUTE ABS EBV NUCLEAR ANTIGEN AB IGG(0.0-17.9 U/mL) 214.0 U/mL April 11, 2016 12: 18pm Result Comments: Negative <18.0 Equivocal 18.0 - 21.9 Positive >21.9 EBV VCA AB IGG(0.0-17.9 U/mL) 436.0 U/mL April 11, 2016 12:18pm Result Comments: Negative <18.0 Equivocal 18.0 - 21.9 Positive >21.9 EBV EARLY ANTIGEN AB IGG(0.0-8.9 U/mL) 79.8 U/mL April 11, 2016 12:18pm Result Comments: Hepatitis A, Hepatitis C and HIV antibodies may cross-react with this assay. Negative < 9.0 Equivocal 9.0 - 10.9 Positive >10.9 EBV VCA AB IGM(0.0-35.9 U/mL) Less than 36.0 U/mL April 11, 2016 12:18pm Result Comments: Negative <36.0 Equivocal 36.0 - 43.9 Positive >43.9 ARIS PROFILE ANTI DNA DS ANTIBODY(0-9 IU/mL) 1 IU/mL April 11, 2016 12:18pm Result Comments: Negative <5 Equivocal 5 - 9 Positive >9 71871-7: CHROMATIN AB(0.0-0.9 AI) 0.3 AI April 11, 2016 12:18pm SJOGRENS AB SSA(0.0-0.9 AI) Less than 0.2 AI April 11, 2016 12:18pm SJOGRENS AB SSB(0.0-0.9 AI) Less than 0.2 AI April 11, 2016 12:18pm 8091-1: ENGINEERING DIRECTOR AB(0.0-0.9 AI) Less than 0.2 AI April 11, 2016 12:18pm VELARDE AB(0.0-0.9 AI) Less than 0.2 AI April 11, 2016 12:18pm 20160-6: ANTI SCLERODERMA 70 AB(0.0-0.9 AI) Less than 0.2 AI April 11, 2016 12:18pm 52674-4: ANTI IRMA-1 AB(0.0-0.9 AI) Less than 0.2 AI April 11, 2016 12:18pm SMOOTH MUSCLE ANTIBODY SMOOTH MUSCLE ANTIBODY(0-19 Units) 17 Units April 11, 2016 12:18pm Result Comments: Negative 0 - 19 Weak positive 20 - 30 Moderate to strong positive >30 Actin Antibodies are found in 52-85% of patients with autoimmune hepatitis or chronic active hepatitis and in 22% of patients with primary biliary cirrhosis. Performed at: [address] [id number] Habitat Biologist: Alfred Siddiqi MD, Phone: [phone] Microbiology Results Visit/Account #[id number] (April 10, 2016 10:06pm - April 13, 2016 3: 56pm) Procedure Result 630-4: URINE CULTURE 630-4: URINE CULTURE Result Instance On April 10, 2016 11:20pm Source: URINE Organism: [id number] (SNOMED_CT) ENTEROCOCCUS FAECALIS COLONY COUNT 30,000 - 40,000 49245-9: MRSA SCREEN FOR INFEC CONTROL 71474-0: MRSA SCREEN FOR INFEC CONTROL Result Instance On April 11, 2016 3: 58am Source: NARE Special Result Comments: No growth BLOOD CULTURE BLOOD CULTURE Result Instance On April 11, 2016 6:39pm Source: BLOOD Special Result Comments: No growth Result Instance On April 11, 2016 7:19pm Source: BLOOD Special Result Comments: No growth Allergies and Adverse Reactions Allergies and Adverse Reactions Patient Unit Number: [id number] Agent Type Reaction Severity Status IODINATED CONTRAST MEDIA - ORAL AND Drug Allergy throat started to close Severe Active PENICILLINS Drug Allergy SICK AND RASH Moderate Active METHOTREXATE Drug Adverse Reaction SKIN CANCERS Severe Active SULFASALAZINE Drug Allergy caused A-Fib Moderate Active INFLUENZA VIRUS VACCINE, SPECIFIC Drug Allergy sick for 3 months Moderate Active HYDROXYCHLOROQUINE Drug Allergy sores on legs, feet and mouth Severe Active Problem List Problem List Visit/Account #[id number] (April 10, 2016 10:06pm - April 13, 2016 3: 56pm) Acute Problems: Code/Condition Comments Documented Start Documented Code(s) Date Resolved Date Total bilirubin, elevated ICD10: R17 High total bilirubin ICD9: 277.4 High total bilirubin SNOMED: 621378750009217 High total bilirubin Generalized weakness ICD10: R53.1 Weakness ICD9: 780.79 Weakness SNOMED: 50651056 Weakness Abdominal pain ICD10: R10.9 Abdominal pain ICD9: 789.00 Abdominal pain SNOMED: 94137776 Abdominal pain Common bile duct dilatation ICD10: K83.8 Cholangiectasis ICD9: 576.8 Cholangiectasis SNOMED: 391005927 Cholangiectasis Elevated LFTs ICD10: R79.89 Elevated liver function tests ICD9: 790.6 Elevated liver function tests SNOMED: 049884594 Elevated liver function tests Elevated bilirubin ICD10: R17 High bilirubin ICD9: 277.4 High bilirubin SNOMED: 844669830 High bilirubin Rheumatoid arthritis ICD10: M06.9 Rheumatoid arthritis ICD9: 714.0 Rheumatoid arthritis SNOMED: 28815894 Rheumatoid arthritis Patient Unit Number: [id number] Chronic Problems: Code/Condition Comments Documented Start Documented Code(s) Date Resolved Date Rheumatoid arthritis ICD10: M06.9 Rheumatoid arthritis ICD9: 714.0 Rheumatoid arthritis SNOMED: 41739116 Rheumatoid arthritis Chronic constipation ICD10: K59.00 Chronic constipation ICD9: 564.00 Chronic constipation SNOMED: 680429736 Chronic constipation Urinary frequency ICD10: R35.0 Increased frequency of urination ICD9: 788.41 Increased frequency of urination SNOMED: 989894651 Increased frequency of urination AAA (abdominal aortic aneurysm) without rupture ICD10: I71.4 Abdominal aortic aneurysm without rupture ICD9: 441.4 Abdominal aortic aneurysm without rupture SNOMED: 74923528 Abdominal aortic aneurysm without rupture Atrial fibrillation ICD10: I48.91 Atrial fibrillation ICD9: 427.31 Atrial fibrillation SNOMED: 10684633 Atrial fibrillation Plan of Care Plan Of Care Visit/Account #[id number] (April 10, 2016 10:06pm - April 13, 2016 3: 56pm) Patient Instructions Instructions DI for Pneumonia -- Adult Escitalopram Oxycodone DI for Warfarin Therapy Vital Signs Vital Signs Visit/Account #[id number] (April 10, 2016 10:06pm - April 13, 2016 3: 56pm) Sign First Result Last Result Code(s) Blood Pressure 166/ 79 mm[Hg] On April 11, 2016 2:19am 140/ 67 mm[Hg] On April 13, 2016 8:58am 8480-6 BP Systolic Heart Rate/Pulse Pulse Rate (adult): 87 /min On April 11, 2016 2:19am Pulse Rate (adult): 74 /min On April 13, 2016 8:58am 8867-4 Heart Rate 8893-0 Pulse rate Respiratory Rate Respiratory Rate: 22 /min On April 11, 2016 2:19am Respiratory Rate: 20 /min On April 13, 2016 8:58am 9279-1 Respiratory rate Temperature in Fahrenheit Temperature (Fahrenheit): 97.7 [degF] On April 10, 2016 10:04pm Temperature (Fahrenheit): 98.2 [degF] On April 13, 2016 8: 58am 8310-5 Body Temperature Weight in Kilograms Weight (Kilograms): 135.45 kg On April 10, 2016 10: 04pm 3141-9 Weight Measured 05598-5 Body weight measured in kilograms Functional Status Functional and Cognitive Status No Functional Status Data Medications Home Medications - Medications that the patient was taking prior to arrival at the hospital Visit/Account #[id number] (April 10, 2016 10:06pm - April 13, 2016 3: 56pm) Medication Route Sig/Schedule Precondition/Indication Comments/ Instructions Codes COUMADIN(WARFARIN SODIUM) 5 MG TAB ORAL EVERY 48 HOURS Warfarin Sodium 5 MG Oral Tablet [Coumadin] (RxNorm): 796183 Dose: 5 MG COUMADIN (WARFARIN SODIUM) ND: 91497029438 COUMADIN(WARFARIN SODIUM) 7.5 MG TAB ORAL TuTh@1800 Warfarin Sodium 7.5 MG Oral Tablet [Coumadin] (RxNorm): 201813 Dose: 7.5 MG COUMADIN (WARFARIN SODIUM) NDC: 08298069042 Vitamin D3(CHOLECALCIFEROL (VITAMIN D3)) 5000 UNIT TABLET ORAL AT BEDTIME Vitamin D3 (CHOLECALCIFEROL (VITAMIN D3)) NDC: 47380574837 Dose: 60836 UNIT MILK OF MAGNESIA(MAGNESIUM HYDROXIDE) 400 MG/5 ML ORAL.SUSP ORAL DAILY CONSTIPATION Magnesium Hydroxide 80 MG/ML Oral Suspension (RxNorm): 887978 Dose: 30 ML MILK OF MAGNESIA (MAGNESIUM HYDROXIDE) NDC: 19792319957 CALCIUM 600 MG PLUS VIT D TAB(CALC/D3/MAG/ZN/SKI TOW OPERATOR/SAUL/BORON) 1 EACH TABLET ORAL DAILY CALCIUM 600 MG PLUS VIT D TAB (CALC/D3/MAG/ZN/SKI TOW OPERATOR/SAUL/BORON) NDC: 19147834037 Dose: 2 EACH VITAMIN C(ASCORBIC ACID) 500 MG TAB.CHEW ORAL DAILY Ascorbic Acid 500 MG Chewable Tablet (RxNorm): 052383 Dose: 1000 MG VITAMIN C (ASCORBIC ACID) NDC: 37909517746 Deltasone(PREDNISOLONE, MICRONIZED) 5 MG TABLET ORAL DAILY Prednisone 5 MG Oral Tablet (RxNorm): 924352 Dose: 10 MG Deltasone (PREDNISOLONE, MICRONIZED) NDC: 96867766443 TYLENOL(ACETAMINOPHEN) 500 MG TAB ORAL EVERY 6 HOURS PAIN Rx Instructions: Acetaminophen 500 MG Oral Tablet [Mapap] (RxNorm): 652244 Dose: 500-1000 MG 500 - 1000 MG TYLENOL (ACETAMINOPHEN) NDC: 17672777720 FLOMAX(TAMSULOSIN HCL) 0.4 MG CAP.ER.24H ORAL DAILY Tamsulosin hydrochloride 0.4 MG Oral Capsule [Flomax] (RxNorm): 863175 Dose: 0.4 MG FLOMAX (TAMSULOSIN HCL) NDC: 46209139310 BUMEX(BUMETANIDE) 0.5 MG TAB ORAL Sunday, Sun, and Sun swelling / edema Bumetanide 0.5 MG Oral Tablet (RxNorm): 547694 Dose: 0.5 MG BUMEX (BUMETANIDE) NDC: 16047151341 ULTRAM(TraMADol HCL) 50 MG TABLET ORAL EVERY 6 HOURS PAIN tramadol hydrochloride 50 MG Oral Tablet [Ultram] (RxNorm): 369263 Dose: 100 MG ULTRAM (TraMADol HCL) NDC: 89695822278 LEXAPRO(ESCITALOPRAM OXALATE) 10 MG TABLET ORAL DAILY@800 Escitalopram 10 MG Oral Tablet [Lexapro] (RxNorm): 413893 Dose: 10 MG LEXAPRO (ESCITALOPRAM OXALATE) NDC: 70670041421 NORCO 7.5-325 TABLET(HYDROcodone BIT/ACETAMINOPHEN) 1 EACH TABLET ORAL Q4H PAIN Rx Instructions: Acetaminophen 325 MG / Hydrocodone Bitartrate 7.5 MG Oral Tablet (RxNorm): 236511 Dose: 1 TAB *KTRACS L/F 03/10/16 #180* NORCO 7.5-325 TABLET (HYDROcodone BIT/ACETAMINOPHEN) NDC: 95230601191 TYLENOL(ACETAMINOPHEN) 500 MG TAB ORAL EVERY 4 HOURS PAIN Acetaminophen 500 MG Oral Tablet [Mapap] (RxNorm): 575265 Dose: 500-1000 MG TYLENOL (ACETAMINOPHEN) NDC: 88024773929 BUMEX(BUMETANIDE) 1 MG TAB ORAL EVERY 48 HOURS Bumetanide 1 MG Oral Tablet (RxNorm): 165332 Dose: 1 MG BUMEX (BUMETANIDE) NDC: 70712994134 COUMADIN(WARFARIN SODIUM) 5 MG TAB ORAL EVERY 48 HOURS Warfarin Sodium 5 MG Oral Tablet [Coumadin] (RxNorm): 399143 Dose: 2.5 MG COUMADIN (WARFARIN SODIUM) NDC: 29871855167 Senna S Tablet(SENNOSIDES/DOCUSATE SODIUM) 1 TAB TABLET ORAL BID@1800,2200 Docusate Sodium 50 MG / sennosides, SKILLED NURSING 8.6 MG Oral Tablet (RxNorm): 901269 Dose: 5 TAB Senna S Tablet (SENNOSIDES/DOCUSATE SODIUM) NDC: 88846469614 Deltasone(PREDNISOLONE, MICRONIZED) 5 MG TABLET ORAL DAILY AT BKFST Prednisone 5 MG Oral Tablet (RxNorm): 758284 Dose: 15 MG Deltasone (PREDNISOLONE, MICRONIZED) NDC: 63420478804 Deltasone(PREDNISOLONE, MICRONIZED) 5 MG TABLET ORAL AT BEDTIME Prednisone 5 MG Oral Tablet (RxNorm): 447028 Dose: 10 MG Deltasone (PREDNISOLONE, MICRONIZED) NDC: 52758046385 ESCITALOPRAM OXALATE(ESCITALOPRAM OXALATE) 10 MG TABLET ORAL DAILY Escitalopram 10 MG Oral Tablet (RxNorm): 538249 Dose: 5 MG ESCITALOPRAM OXALATE (ESCITALOPRAM OXALATE) NDC: 79092014266 OXYCODONE HCL(OxyCODONE) 5 MG TAB ORAL EVERY 6 HOURS PAIN OXYCODONE HCL ( OxyCODONE) NDC: 76822790685 Dose: 5-10 MG Inpatient/Ordered Medications - Medications administered during hospital visit Visit/Account #[id number] (April 10, 2016 10:06pm - April 13, 2016 3: 56pm) Medication Route Sig/Schedule Precondition/Indication Comments/ Instructions Codes IV Medication INTRAVEN .Q1H (Rate: 1000 MLS/HR Duration: 1 HR) Carriers: Carriers: 1000 ML Sodium Chloride 9 MG/ML Injection (RxNorm): 6677632 NORMAL SALINE(SODIUM CHLORIDE) 1000 ML INJECTION NORMAL SALINE ( SODIUM CHLORIDE) NDC: 00634462720 Dose: 1000 ML IV Medication INTRAVEN .Q1H (Rate: 1000 MLS/HR Duration: 1 HR) Carriers: Carriers: 1000 ML Sodium Chloride 9 MG/ML Injection (RxNorm): 9300899 NORMAL SALINE(SODIUM CHLORIDE) 1000 ML INJECTION NORMAL SALINE ( SODIUM CHLORIDE) NDC: 09498091191 Dose: 1000 ML IV Medication INTRAVEN NOW (Rate: 100 MLS/HR Duration: 30 MIN) Label Comments: Carriers: DO NOT REFRIGERATE Carriers: ACTIVATE VIAL PRIOR TO ADMINISTRATION Ceftriaxone 1000 MG Injection (RxNorm): 3555810 ROCEPHIN 1 GM/50 ML(CefTRIAXone SOD) 1 GM/50 ML INJECTION ROCEPHIN 1 GM/50 ML (CefTRIAXone SOD) NDC: 60133284296 Dose: 50 ML IV Medication INTRAVEN NOW (Rate: 100 MLS/HR Duration: 1 HR) Label Comments: Carriers: DO NOT REFRIGERATE Carriers: Expires 24 HRS after package opened Metronidazole 5 MG/ML Injectable Solution (RxNorm): 640698 FLAGYL 500 MG/100 ML(METRONIDAZOLE/SOD CHL) 500 MG/100 ML INJECTION FLAGYL 500 MG/100 ML (METRONIDAZOLE/SOD CHL) NDC: 72414817551 Dose: 100 ML MORPHINE SULFATE 4 MG/ML INJECTION INTRAVEN Q4H PRN Reason: SEVERE PAIN Label Comments: 1 ML Morphine Sulfate 4 MG/ML Cartridge (RxNorm): 9232705 Dose: 0 ML MAY INCREASE FALL RISK (MORPHINE SULFATE) NDC: 44686924363 Special Dose Instructions: 2-4 MG NORCO 7.5-325(HYDROcodone BIT/ACETAMINOPHEN) 1 TAB TAB ORAL Q4H PRN Reason: MODERATE PAIN Label Comments: Acetaminophen 325 MG / Hydrocodone Bitartrate 7.5 MG Oral Tablet (RxNorm): 604799 Dose: 1 TAB <<may be substituted for 7.5/500>> REC MAX DAILY ACETAMINOPHEN: 4000 MG/24 HR NORCO 7.5-325 (HYDROcodone BIT/ACETAMINOPHEN) NDC: 95580530810 MAY INCREASE FALL RISK DELTASONE(PredniSONE) 10 MG TAB ORAL AT BEDTIME Label Comments: {10 ( Prednisone 10 MG Oral Tablet) } Pack (RxNorm): 577884 Dose: 10 MG TAKE WITH FOOD OR MILK DELTASONE (PredniSONE) NDC: 26563657925 Special Dose Instructions: 10mg daily at hs DELTASONE(PredniSONE) 10 MG TAB ORAL DAILY AT BKFST Label Comments: {10 ( Prednisone 10 MG Oral Tablet) } Pack (RxNorm): 660212 Dose: 15 MG TAKE WITH FOOD OR MILK DELTASONE (PredniSONE) NDC: 78632874561 ZOFRAN INJ(ONDANSETRON HCL) 4 MG/2 ML INJECTION INTRAVEN Q6H PRN Reason: NAUSEA/VOMITING Label Comments: 2 ML Ondansetron 2 MG/ML Injection (RxNorm): 6984190 Dose: 2 ML SLOW IV PUSH MAY INCREASE FALL RISK ZOFRAN INJ (ONDANSETRON HCL) NDC: [id number] BUMEX(BUMETANIDE) 1 MG TAB ORAL EVERY 48 HOURS Label Comments: Bumetanide 1 MG Oral Tablet (RxNorm): 559713 Dose: 1 MG MAY INCREASE FALL RISK BUMEX (BUMETANIDE) NDC: [id number] Special Dose Instructions: last dose 04/09/16 COUMADIN(WARFARIN SOD) 5 MG TAB ORAL EVERY 48 HOURS Label Comments: Warfarin Sodium 5 MG Oral Tablet [Coumadin] (RxNorm): 466334 Dose: 5 MG TERATOGENIC. WOMEN SHOULD NOT HANDLE OR CRUSH. COUMADIN (WARFARIN SOD) NDC: [id number] Special Dose Instructions: last dose 04/10/16 COUMADIN(WARFARIN SOD) 2.5 MG TAB ORAL EVERY 48 HOURS Label Comments: Warfarin Sodium 2.5 MG Oral Tablet [Coumadin] (RxNorm): 250830 Dose: 2.5 MG TERATOGENIC. WOMEN SHOULD NOT HANDLE OR CRUSH. COUMADIN (WARFARIN SOD) NDC: 88254068839 Special Dose Instructions: last dose 04/09/16 REGLAN INJ(METOCLOPRAMIDE HCL) 5 MG/ML INJECTION INTRAVEN Q6H PRN Reason: NAUSEA/VOMITING Label Comments: 2 ML Metoclopramide 5 MG/ML Injection (RxNorm) : 289778 Dose: 2 ML MAY INCREASE FALL RISK REGLAN INJ (METOCLOPRAMIDE HCL) NDC: [id number] IV Medication INTRAVEN .Q6H40M (Rate: 150 MLS/HR Duration: 6 HR 40 MIN) Carriers: Carriers: Calcium Chloride 0.0014 MEQ/ML / Potassium Chloride 0.004 MEQ/ML / Sodium Chloride 0.103 MEQ (RxNorm): 672904 LR(LACTATED RINGER'S) 1000 ML INJECTION LR (LACTATED RINGER'S) NDC: 73589588117 Dose: 1000 ML VENTOLIN 0.5% NEB(ALBUTEROL SULF) 2.5 MG/0.5 ML INHALER INHALED EVERY 4 HOURS SOB/ Wheezing Albuterol 1 MG/ML Inhalant Solution (RxNorm): 749934 Dose: 0.5 ML VENTOLIN 0.5% NEB (ALBUTEROL SULF) NDC: [id number] LEXAPRO(ESCITALOPRAM OXALATE) 10 MG TAB ORAL DAILY Label Comments: Escitalopram 10 MG Oral Tablet (RxNorm): 733468 Dose: 5 MG MAY INCREASE FALL RISK LEXAPRO (ESCITALOPRAM OXALATE) NDC: [id number] ROXICODONE(OxyCODONE HCL) 5 MG TAB ORAL EVERY 3 HRS WHILE AWAKE PRN Reason: PAIN Label Comments: Oxycodone Hydrochloride 5 MG Oral Tablet (RxNorm): 5405250 Dose: 0 MG OXYCODONE IMMED RELEASE MAY INCREASE FALL RISK ROXICODONE (OxyCODONE HCL) NDC: 84658590840 Special Dose Instructions: prn pain Discharge Medications - Medications that patient should continue to take. Review with physician Visit/Account #[id number] (April 10, 2016 10:06pm - April 13, 2016 3: 56pm) Medication Route Sig/Schedule Precondition/Indication Comments/ Instructions Codes COUMADIN(WARFARIN SODIUM) 5 MG TAB ORAL EVERY 48 HOURS Warfarin Sodium 5 MG Oral Tablet [Coumadin] (RxNorm): 547183 Dose: 5 MG COUMADIN (WARFARIN SODIUM) NDC: [id number] MILK OF MAGNESIA(MAGNESIUM HYDROXIDE) 400 MG/5 ML ORAL.SUSP ORAL DAILY CONSTIPATION Magnesium Hydroxide 80 MG/ML Oral Suspension (RxNorm): 797774 Dose: 30 ML MILK OF MAGNESIA (MAGNESIUM HYDROXIDE) NDC: 79890053280 BUMEX(BUMETANIDE) 1 MG TAB ORAL EVERY 48 HOURS Bumetanide 1 MG Oral Tablet (RxNorm): 817430 Dose: 1 MG BUMEX (BUMETANIDE) NDC: [id number] COUMADIN(WARFARIN SODIUM) 5 MG TAB ORAL EVERY 48 HOURS Warfarin Sodium 5 MG Oral Tablet [Coumadin] (RxNorm): 883584 Dose: 2.5 MG COUMADIN (WARFARIN SODIUM) NDC: 08522722197 Senna S Tablet(SENNOSIDES/DOCUSATE SODIUM) 1 TAB TABLET ORAL BID@1800,2200 Docusate Sodium 50 MG / sennosides, SKILLED NURSING 8.6 MG Oral Tablet (RxNorm): 334405 Dose: 5 TAB Senna S Tablet (SENNOSIDES/DOCUSATE SODIUM) NDC: [id number] Deltasone(PREDNISOLONE, MICRONIZED) 5 MG TABLET ORAL DAILY AT BKFST Prednisone 5 MG Oral Tablet (RxNorm): 314101 Dose: 15 MG Deltasone (PREDNISOLONE, MICRONIZED) NDC: 61255682184 Deltasone(PREDNISOLONE, MICRONIZED) 5 MG TABLET ORAL AT BEDTIME Prednisone 5 MG Oral Tablet (RxNorm): 762526 Dose: 10 MG Deltasone (PREDNISOLONE, MICRONIZED) NDC: 45252367787 ESCITALOPRAM OXALATE(ESCITALOPRAM OXALATE) 10 MG TABLET ORAL DAILY Escitalopram 10 MG Oral Tablet (RxNorm): 154931 Dose: 5 MG ESCITALOPRAM OXALATE (ESCITALOPRAM OXALATE) NDC: 76003071075 OXYCODONE HCL(OxyCODONE) 5 MG TAB ORAL EVERY 6 HOURS PAIN OXYCODONE HCL ( OxyCODONE) [facility]: [id number] Dose: 5-10 MG History Of Encounters Encounters Visit/Account #[id number] (April 10, 2016 10:06pm - April 13, 2016 3: 56pm) Account Status Physican Of Reason For Visit Diagnosis Start Date/Time Stop Date/Time Record Visit ER CRISTEL MONTOYA MD COMMON BILE DUCT DILATATION/ELEVATED BILIRUBIN/ Not Available Apr 10, 2016 10:06pm Apr 11, 2016 1:51am IN ARASELI DELGADO MD COMMON BILE DUCT DILATATION/ELEVATED BILIRUBIN/ Not Available Apr 11, 2016 12:24am Apr 13, 2016 3:56pm History of Procedures Procedure List No procedures recorded. Discharge Instructions Discharge Instructions Visit/Account #[id number] (April 10, 2016 10:06pm - April 13, 2016 3: 56pm) DISCHARGE INSTRUCTIONS Physician Documentation PROVIDER INSTRUCTIONS Discharge Diet Regular Discharge Activity/Weight Bearing Status no restrictions Discharge Diet Regular Discharge Activity/Weight Bearing Status no restrictions FOLLOW UP APPOINTMENTS Follow Up Appointment Date/Time: Dr. Wei ([phone]) office will call with appointment time. Dr. Pearson ([phone]) April 24 @ 2:30 pm. Labs prior to appointment. Social History Social History No Social History Data. Immunizations Immunizations Patient Unit Number: [id number] Immunizations No immunizations recorded.
--- OUTSIDE RECORDS SUMMARY | 2017-03-15 16:09 | External Medical Summary | Continuity Of Care Document ---
:1940 Author Organization [facility] Address [address] [place] [address] Phone Care Team Providers Name Role Phone BRYSON KERR MD, ZULEMA Consulting Provider JAN JAMES, CRISTEL Garcia Unavailable UNASSIGNED, ED PHYSICIAN Unavailable Unavailable YESENIA JAMES, PAWAN Nguyen Consulting Provider GURPREET MONTES MD Admitting Provider LAVELL JAMES, ANTHONY Man Attending Provider CORY JAMES, JOHN Gay Primary Care Provider ZENAIDA PATEL MD Unavailable Results Lab Results Visit/Account #[id number] (June 14, 2016 7:24pm - June 20, 2016 1:39pm) Test Result Date/Time POC LACTIC ACID VENOUS POC LACTIC ACID VENOUS(0.90-1.70 MMOL/L) 1.76 MMOL/L June 14, 2016 8:03pm COMPLETE BLOOD COUNT WITH DIFF WHITE BLOOD COUNT(4.0-11.0 10E3/UL) 12.8 10E3/UL June 14, 2016 8:00pm 11.4 10E3/UL June 15, 2016 6:40am RED BLOOD COUNT(4.50-5.90 10E6/UL) 4.42 10E6/UL June 14, 2016 8:00pm 4.26 10E6/UL June 15, 2016 6:40am HEMOGLOBIN(13.5-17.5 G/DL) 14.1 G/DL June 14, 2016 8:00pm 13.4 G/DL June 15, 2016 6:40am HEMATOCRIT(41.0-53.0 %) 42.5 % June 14, 2016 8:00pm 41.2 % June 15, 2016 6:40am MEAN CORPUSCULAR VOLUME(82.0-100.0 FL) 96.2 FL June 14, 2016 8:00pm 96.7 FL June 15, 2016 6:40am MEAN CORPUSCULAR HEMOGLOBIN(26.0-34.0 PG) 31.9 PG June 14, 2016 8:00pm 31.5 PG June 15, 2016 6:40am MEAN CORPUSCULAR HGB CONC(31.5-36.5 G/DL) 33.2 G/DL June 14, 2016 8:00pm 32.5 G/DL June 15, 2016 6:40am RED CELL DISTRIBUTION WIDTH(11.5-14.5 %) 15.4 % June 14, 2016 8:00pm 15.7 % June 15, 2016 6:40am 777-3: PLATELET COUNT(150-450 10E3/UL) 164 10E3/UL June 14, 2016 8:00pm 150 10E3/UL June 15, 2016 6:40am MEAN PLATELET VOLUME(8.2-12.4 FL) 9.6 FL June 14, 2016 8:00pm 9.9 FL June 15, 2016 6:40am NEUTROPHILS % (AUTO)(40-70 %) 85 % June 14, 2016 8:00pm 85 % June 15, 2016 6:40am LYMPHOCYTES % (AUTO)(15-45 %) 3 % June 14, 2016 8:00pm 6 % June 15, 2016 6:40am MONOCYTES % (AUTO)(2-10 %) 5 % June 14, 2016 8:00pm 4 % June 15, 2016 6:40am EOSINOPHILS % (AUTO)(0-6 %) 1 % June 14, 2016 8:00pm 1 % June 15, 2016 6:40am BASOPHILS % (AUTO)(0-1 %) 1 % June 14, 2016 8:00pm 1 % June 15, 2016 6:40am IMMATURE GRANS % (AUTO)(0-0 %) 5 % June 14, 2016 8:00pm 3 % June 15, 2016 6:40am NUCLEATED RBCS (AUTO)(0-0 %) 0 % June 14, 2016 8:00pm 0 % June 15, 2016 6:40am NEUTROPHILS # (AUTO)(2.5-7.5 10E3/UL) 10.8 10E3/UL June 14, 2016 8:00pm 9.7 10E3/UL June 15, 2016 6:40am LYMPHOCYTES # (AUTO)(1.0-4.0 10E3/UL) 0.4 10E3/UL June 14, 2016 8:00pm 0.7 10E3/UL June 15, 2016 6:40am MONOCYTES # (AUTO)(0.2-0.8 10E3/UL) 0.7 10E3/UL June 14, 2016 8:00pm 0.5 10E3/UL June 15, 2016 6:40am EOSINOPHILS # (AUTO)(0.0-0.4 10E3/UL) 0.1 10E3/UL June 14, 2016 8:00pm 0.1 10E3/UL June 15, 2016 6:40am BASOPHILS # (AUTO)(0.0-0.2 10E3/UL) 0.1 10E3/UL June 14, 2016 8:00pm 0.1 10E3/UL June 15, 2016 6:40am IMMATURE GRANS # (AUTO)(0.0-0.0 10E3/UL) 0.6 10E3/UL June 14, 2016 8:00pm 0.4 10E3/UL June 15, 2016 6:40am DIFF TYPE AUTOMATED June 14, 2016 8:00pm AUTOMATED June 15, 2016 6:40am COMPLETE BLOOD COUNT WHITE BLOOD COUNT(4.0-11.0 10E3/UL) 10.7 10E3/UL June 16, 2016 7:45am RED BLOOD COUNT(4.50-5.90 10E6/UL) 4.37 10E6/UL June 16, 2016 7:45am HEMOGLOBIN(13.5-17.5 G/DL) 13.6 G/DL June 16, 2016 7:45am HEMATOCRIT(41.0-53.0 %) 41.9 % June 16, 2016 7:45am MEAN CORPUSCULAR VOLUME(82.0-100.0 FL) 95.9 FL June 16, 2016 7:45am MEAN CORPUSCULAR HEMOGLOBIN(26.0-34.0 PG) 31.1 PG June 16, 2016 7:45am MEAN CORPUSCULAR HGB CONC(31.5-36.5 G/DL) 32.5 G/DL June 16, 2016 7:45am RED CELL DISTRIBUTION WIDTH(11.5-14.5 %) 15.3 % June 16, 2016 7:45am 777-3: PLATELET COUNT(150-450 10E3/UL) 165 10E3/UL June 16, 2016 7:45am MEAN PLATELET VOLUME(8.2-12.4 FL) 9.5 FL June 16, 2016 7:45am NUCLEATED RBCS (AUTO)(0-0 %) 0 % June 16, 2016 7:45am CBC WITH REFLEXED MANUAL DIFF WHITE BLOOD COUNT(4.0-11.0 10E3/UL) 10.9 10E3/UL June 19, 2016 6:38am RED BLOOD COUNT(4.50-5.90 10E6/UL) 4.33 10E6/UL June 19, 2016 6:38am HEMOGLOBIN(13.5-17.5 G/DL) 13.4 G/DL June 19, 2016 6:38am HEMATOCRIT(41.0-53.0 %) 41.3 % June 19, 2016 6:38am MEAN CORPUSCULAR VOLUME(82.0-100.0 FL) 95.4 FL June 19, 2016 6:38am MEAN CORPUSCULAR HEMOGLOBIN(26.0-34.0 PG) 30.9 PG June 19, 2016 6:38am MEAN CORPUSCULAR HGB CONC(31.5-36.5 G/DL) 32.4 G/DL June 19, 2016 6:38am RED CELL DISTRIBUTION WIDTH(11.5-14.5 %) 14.8 % June 19, 2016 6:38am 777-3: PLATELET COUNT(150-450 10E3/UL) 167 10E3/UL June 19, 2016 6:38am MEAN PLATELET VOLUME(8.2-12.4 FL) 9.6 FL June 19, 2016 6:38am DIFF TYPE MANUAL June 19, 2016 6:38am NEUTROPHIL % (MANUAL)(40-70 %) 81 % June 19, 2016 6:38am BANDS%(0-3 %) 4 % June 19, 2016 6:38am LYMPHOCYTES % (MANUAL)(15-45 %) 5 % June 19, 2016 6:38am MONOCYTES % (MANUAL)(2-10 %) 2 % June 19, 2016 6:38am EOSINOPHILS % (MANUAL)(0-6 %) 3 % June 19, 2016 6:38am BASOPHILS % (MANUAL)(0-1 %) 1 % June 19, 2016 6:38am METAMYELOCYTES %(0-0 %) 2 % June 19, 2016 6:38am MYELOCYTES % (MANUAL)(0-0 %) 2 % June 19, 2016 6:38am NUCLEATED RBCS (MANUAL)(0-0 %) 0 % June 19, 2016 6:38am NEUTROPHILS # (MANUAL)(2.5-7.5 10E3/UL) 9.3 10E3/UL June 19, 2016 6:38am LYMPHOCYTES # (MANUAL)(1.0-4.0 10E3/UL) 0.5 10E3/UL June 19, 2016 6:38am MONOCYTES # (MANUAL)(0.2-0.8 10E3/UL) 0.2 10E3/UL June 19, 2016 6:38am EOSINOPHILS # (MANUAL)(0.0-0.4 10E3/UL) 0.3 10E3/UL June 19, 2016 6:38am BASOPHILS # (MANUAL)(0.0-0.2 10E3/UL) 0.1 10E3/UL June 19, 2016 6:38am IMMATURE MYELOID CELLS #(0-0 10E3/UL) 0.4 10E3/UL June 19, 2016 6:38am PLATELET ESTIMATE ADEQUATE June 19, 2016 6:38am WBC MORPHOLOGY COMMENT 1+ TOXIC GRANULATION June 19, 2016 6:38am RBC MORPHOLOGY COMMENT NORMAL June 19, 2016 6:38am PLATELET MORPHOLOGY COMMENT NORMAL June 19, 2016 6:38am PROTHROMBIN TIME WITH INR PROTHROMBIN TIME(12.1-14.0 SEC) 15.7 SEC June 14, 2016 8:00pm 16.4 SEC June 15, 2016 6:40am 20.0 SEC June 16, 2016 7:45am 18.1 SEC June 17, 2016 6:25am 20.9 SEC June 18, 2016 6:52am 19.4 SEC June 19, 2016 6:38am 92616-0: INR 1.2 June 14, 2016 8:00pm 1.3 June 15, 2016 6:40am 1.7 June 16, 2016 7:45am 1.5 June 17, 2016 6:25am 1.8 June 18, 2016 6:52am 1.6 June 19, 2016 6:38am COMPLETE METABOLIC PROFILE GLUCOSE(70-110 MG/DL) 97 MG/DL June 14, 2016 8:00pm 127 MG/DL June 19, 2016 6:38am BLOOD UREA NITROGEN(6-20 MG/DL) 20 MG/DL June 14, 2016 8:00pm 17 MG/DL June 19, 2016 6:38am CREATININE(0.50-1.20 MG/DL) 0.76 MG/DL June 14, 2016 8:00pm 0.58 MG/DL June 19, 2016 6:38am EST GLOMERULAR FILTRATION RATE(Greater than or equal to 60) Greater than or equal to 60 June 14, 2016 8:00pm Result Comments: If the patient is of -[place] descent/extraction multiply the eGFR value by 1.212 to obtain the actual eGFR. >=60 mg/dL Normal 30-59 mg/dL Moderate Kidney Disease 15-29 mg/dL Severe Kidney Disease <15 mg/dL Kidney Failure Greater than or equal to 60 June 19, 2016 6:38am Result Comments: If the patient is of -[place] descent/extraction multiply the eGFR value by 1.212 to obtain the actual eGFR. >=60 mg/dL Normal 30-59 mg/dL Moderate Kidney Disease 15-29 mg/dL Severe Kidney Disease <15 mg/dL Kidney Failure BUN CREATININE RATIO(10.0-20.0 RATIO) 26.0 RATIO June 14, 2016 8:00pm 29.0 RATIO June 19, 2016 6:38am SODIUM(135-145 MMOL/L) 132 MMOL/L June 14, 2016 8:00pm 134 MMOL/L June 19, 2016 6:38am POTASSIUM(3.6-5.0 MMOL/L) 4.1 MMOL/L June 14, 2016 8:00pm 3.5 MMOL/L June 19, 2016 6:38am CHLORIDE(101-111 MMOL/L) 96 MMOL/L June 14, 2016 8:00pm 97 MMOL/L June 19, 2016 6:38am CO2(21-31 MMOL/L) 28 MMOL/L June 14, 2016 8:00pm 32 MMOL/L June 19, 2016 6:38am ANION GAP(8-18) 12 June 14, 2016 8:00pm 9 June 19, 2016 6:38am OSMO CALCULATED(270.0-290.0) 267.1 June 14, 2016 8:00pm 271.4 June 19, 2016 6:38am CALCIUM(8.5-10.5 MG/DL) 8.6 MG/DL June 14, 2016 8:00pm 8.2 MG/DL June 19, 2016 6:38am BILIRUBIN,TOTAL(0.1-1.2 MG/DL) 0.9 MG/DL June 14, 2016 8:00pm 0.6 MG/DL June 19, 2016 6:38am ALKALINE PHOSPHATASE(42-121 IU/L) 57 IU/L June 14, 2016 8:00pm 51 IU/L June 19, 2016 6:38am ASPARTATE AMINO TRANSFERASE(10-42 IU/L) 24 IU/L June 14, 2016 8:00pm 20 IU/L June 19, 2016 6:38am ALANINE AMINOTRANSFERASE(10-60 IU/L) 24 IU/L June 14, 2016 8:00pm 19 IU/L June 19, 2016 6:38am TOTAL PROTEIN(6.4-8.2 G/DL) 6.9 G/DL June 14, 2016 8:00pm 6.1 G/DL June 19, 2016 6:38am ALBUMIN(3.5-5.5 G/DL) 3.3 G/DL June 14, 2016 8:00pm 2.8 G/DL June 19, 2016 6:38am GLOBULIN(2.4-3.6) 3.6 June 14, 2016 8:00pm 3.3 June 19, 2016 6:38am ALBUMIN/GLOBULIN RATIO(0.9-1.8 RATIO) 0.9 RATIO June 14, 2016 8:00pm 0.8 RATIO June 19, 2016 6:38am BASIC METABOLIC PANEL GLUCOSE(70-110 MG/DL) 121 MG/DL June 15, 2016 6:40am 106 MG/DL June 16, 2016 7:45am BLOOD UREA NITROGEN(6-20 MG/DL) 15 MG/DL June 15, 2016 6:40am 12 MG/DL June 16, 2016 7:45am CREATININE(0.50-1.20 MG/DL) 0.69 MG/DL June 15, 2016 6:40am 0.63 MG/DL June 16, 2016 7:45am EST GLOMERULAR FILTRATION RATE(Greater than or equal to 60) Greater than or equal to 60 June 15, 2016 6:40am Result Comments: If the patient is of -[place] descent/extraction multiply the eGFR value by 1.212 to obtain the actual eGFR. >=60 mg/dL Normal 30-59 mg/dL Moderate Kidney Disease 15-29 mg/dL Severe Kidney Disease <15 mg/dL Kidney Failure Greater than or equal to 60 June 16, 2016 7:45am Result Comments: If the patient is of -[place] descent/extraction multiply the eGFR value by 1.212 to obtain the actual eGFR. >=60 mg/dL Normal 30-59 mg/dL Moderate Kidney Disease 15-29 mg/dL Severe Kidney Disease <15 mg/dL Kidney Failure BUN CREATININE RATIO(10.0-20.0 RATIO) 22.0 RATIO June 15, 2016 6:40am 19.0 RATIO June 16, 2016 7:45am SODIUM(135-145 MMOL/L) 135 MMOL/L June 15, 2016 6:40am 136 MMOL/L June 16, 2016 7:45am POTASSIUM(3.6-5.0 MMOL/L) 3.8 MMOL/L June 15, 2016 6:40am 3.8 MMOL/L June 16, 2016 7:45am CHLORIDE(101-111 MMOL/L) 99 MMOL/L June 15, 2016 6:40am 101 MMOL/L June 16, 2016 7:45am CO2(21-31 MMOL/L) 29 MMOL/L June 15, 2016 6:40am 29 MMOL/L June 16, 2016 7:45am ANION GAP(8-18) 11 June 15, 2016 6:40am 10 June 16, 2016 7:45am OSMO CALCULATED(270.0-290.0) 272.2 June 15, 2016 6:40am 272.1 June 16, 2016 7:45am CALCIUM(8.5-10.5 MG/DL) 8.3 MG/DL June 15, 2016 6:40am 8.2 MG/DL June 16, 2016 7:45am ANTI-STREPTOLYSIN O TITER ANTI-STREPTOLYSIN O TITER(Less than or equal to 200 IU/ML) Less than 100 IU/ ML June 16, 2016 7:45am VANCOMYCIN,TROUGH VANCOMYCIN,TROUGH(5.0-10.0 UG/ML) 18.1 UG/ML June 16, 2016 7:45am Result Comments: For serious infections the IDSA recommends a target vancomycin trough level of 15-20 ug/ml. ANTI-DNASE B STREP AB ANTI-DNASE B STREP AB(0-120 U/mL) Less than 78 U/mL June 16, 2016 7:45am Result Comments: Results verified by repeat testing Limit of assay detection is <78 Performed at: [address] [id number] [place] Supervisor: Alfred Siddiqi MD, Phone: [phone] Microbiology Results Visit/Account #[id number] (June 14, 2016 7:24pm - June 20, 2016 1:39pm) Procedure Result MRSA SCREEN FOR INFEC CONTROL MRSA SCREEN FOR INFEC CONTROL Result Instance On June 14, 2016 10:35pm Source: NARE Special Result Comments: No growth BLOOD CULTURE BLOOD CULTURE Result Instance On June 14, 2016 8:00pm Source: BLOOD Special Result Comments: No growth Result Instance On June 14, 2016 8:07pm Source: BLOOD Special Result Comments: No growth Allergies and Adverse Reactions Allergies and Adverse Reactions Patient Unit Number: [id number] Agent Type Reaction Severity Status IODINATED CONTRAST MEDIA - IV DYE Drug Allergy throat started to close Severe Active PENICILLINS Drug Allergy SICK AND RASH Moderate Active METHOTREXATE Drug Adverse Reaction SKIN CANCERS Severe Active SULFASALAZINE Drug Allergy caused A-Fib Moderate Active INFLUENZA VIRUS VACCINE, SPECIFIC Drug Allergy sick for 3 months Moderate Active HYDROXYCHLOROQUINE Drug Allergy sores on legs, feet and mouth Severe Active Problem List Problem List Visit/Account #[id number] (June 14, 2016 7:24pm - June 20, 2016 1:39pm) Chronic Problems: Code/Condition Comments Documented Start Documented Code(s) Date Resolved Date Rheumatoid arthritis ICD10: M06.9 Rheumatoid arthritis SNOMED: 28391757 Rheumatoid arthritis Patient Unit Number: [id number] Chronic Problems: Code/Condition Comments Documented Start Documented Code(s) Date Resolved Date Rheumatoid arthritis ICD10: M06.9 Rheumatoid arthritis SNOMED: 01642539 Rheumatoid arthritis Chronic anticoagulation ICD10: Z79.01 Chronic anticoagulation SNOMED: 288627964 [employer] current use of anticoagulant therapy Obstructive sleep apnea on CPAP ICD10: G47.33 Obstructive sleep apnea on CPAP SNOMED: 25945714 Obstructive sleep apnea treated with continuous positive airway pressure (C Bloating ICD10: R14.0 Bloating SNOMED: 307336243 Abdominal bloating Chronic constipation ICD10: K59.00 Chronic constipation SNOMED: 447551053 Chronic constipation Urinary frequency ICD10: R35.0 Urinary frequency SNOMED: 481936800 Increased frequency of urination Chronic ulcer of leg ICD10: L97.909 Chronic ulcer of leg SNOMED: 22719203 Chronic ulcer of lower extremity Traumatic open wound of lower leg ICD10: S81.809A Traumatic open wound of lower leg SNOMED: 074662648 Traumatic open wound of lower leg AAA (abdominal aortic aneurysm) without rupture ICD10: I71.4 AAA ( abdominal aortic aneurysm) without rupture SNOMED: 07594658 Abdominal aortic aneurysm without rupture Atrial fibrillation ICD10: I48.91 Atrial fibrillation SNOMED: 92442284 Atrial fibrillation Urinary retention ICD10: R33.9 Urinary retention SNOMED: 741305233 Retention of urine Elevated LFTs ICD10: R94.5 Elevated LFTs SNOMED: 767787783 Elevated liver function tests Plan of Care Plan Of Care Visit/Account #[id number] (June 14, 2016 7:24pm - June 20, 2016 1:39pm) Patient Instructions Instructions DI for Cellulitis -- Adult Warfarin Cephalexin Vital Signs Vital Signs Visit/Account #[id number] (June 14, 2016 7:24pm - June 20, 2016 1:39pm) Sign First Result Last Result Code(s) Blood Pressure 144/ 73 mm[Hg] On June 15, 2016 1:56am 138/ 88 mm[Hg] On June 20, 2016 5:43am 8462-4 BP Diastolic 8480-6 BP Systolic Heart Rate/Pulse Pulse Rate (adult): 87 /min On June 15, 2016 1:56am Pulse Rate (adult): 72 /min On June 20, 2016 5:43am 8867-4 Heart Rate Respiratory Rate Respiratory Rate: 20 /min On June 15, 2016 1:56am Respiratory Rate: 18 /min On June 20, 2016 5:43am 9279-1 Respiratory Rate Temperature in Fahrenheit Temperature (Fahrenheit): 98.0 [degF] On June 14, 2016 7:22pm Temperature (Fahrenheit): 97.4 [degF] On June 20, 2016 5:43am 8310- 5 Body Temperature Weight in Kilograms Weight (Kilograms): 140.3000 kg On June 14, 2016 7:22pm 3141-9 Weight Measured Functional Status Functional and Cognitive Status No Functional Status Data Medications Home Medications - Medications that the patient was taking prior to arrival at the hospital Visit/Account #[id number] (June 14, 2016 7:24pm - June 20, 2016 1:39pm) Medication Route Sig/Schedule Precondition/Indication Comments/ Instructions Codes COUMADIN(WARFARIN SODIUM) 5 MG TAB ORAL EVERY 48 HOURS Rx Instructions: Warfarin Sodium 5 MG Oral Tablet [Coumadin] (RxNorm): 500200 Dose: 5 MG *ALTERNATES W 2.5 MG* COUMADIN (WARFARIN SODIUM) NDC: 72520488410 MILK OF MAGNESIA(MAGNESIUM HYDROXIDE) 400 MG/5 ML ORAL.SUSP ORAL DAILY CONSTIPATION Magnesium Hydroxide 80 MG/ML Oral Suspension (RxNorm): 940077 Dose: 30 ML MILK OF MAGNESIA (MAGNESIUM HYDROXIDE) NDC: 32224171491 COUMADIN(WARFARIN SODIUM) 5 MG TAB ORAL EVERY 48 HOURS Rx Instructions: Warfarin Sodium 5 MG Oral Tablet [Coumadin] (RxNorm): 095210 Dose: 2.5 MG *ALTERNATES W 5 MG* COUMADIN (WARFARIN SODIUM) NDC: 78375124810 Senna S Tablet(SENNOSIDES/DOCUSATE SODIUM) 1 TAB TABLET ORAL AT BEDTIME Rx Note Text Comments: Docusate Sodium 50 MG / sennosides, [facility] 8.6 MG Oral Tablet (RxNorm): 284118 Dose: 8 TAB *PT STATES HE TAKES BETWEEN 5-10 TABS @HS DEPENDING ON HOW HE FEELS* Senna S Tablet (SENNOSIDES/DOCUSATE SODIUM) NDC: 38707162712 Deltasone(PREDNISOLONE, MICRONIZED) 5 MG TABLET ORAL AT BEDTIME Prednisone 5 MG Oral Tablet (RxNorm): 718578 Dose: 10 MG Deltasone (PREDNISOLONE, MICRONIZED) NDC: 86398189446 ESCITALOPRAM OXALATE(ESCITALOPRAM OXALATE) 5 MG TABLET ORAL DAILY Escitalopram 5 MG Oral Tablet (RxNorm): 048788 Dose: 5 MG ESCITALOPRAM OXALATE (ESCITALOPRAM OXALATE) NDC: 48543038595 BUMEX(BUMETANIDE) 0.5 MG TAB ORAL DAILY Bumetanide 0.5 MG Oral Tablet ( RxNorm): 223739 Dose: 0.5 MG BUMEX (BUMETANIDE) NDC: 15226634601 DELTASONE(PredniSONE) 10 MG TAB ORAL DAILY {10 (Prednisone 10 MG Oral Tablet) } Pack (RxNorm): 668736 Dose: 15 MG DELTASONE (PredniSONE) NDC: 80686096299 ROXICODONE(OxyCODONE) 15 MG TABLET ORAL every 5 hours Oxycodone Hydrochloride 15 MG Oral Tablet (RxNorm): 0601597 Dose: 10 MG ROXICODONE (OxyCODONE) NDC: 44229787334 OXYCONTIN(OxyCODONE) 10 MG TAB.ER.12H ORAL Q5S PAIN Rx Note Text Comments: 12 HR Oxycodone Hydrochloride 10 MG Extended Release Oral Tablet [Oxycontin] ( RxNorm): 1409675 Dose: 10 MG *LF 06/12/16 #150* OXYCONTIN (OxyCODONE) NDC: 06863138613 DELTASONE(PredniSONE) 10 MG TAB ORAL AT BEDTIME {10 (Prednisone 10 MG Oral Tablet) } Pack (RxNorm): 341279 Dose: 10 MG DELTASONE (PredniSONE) NDC: 87948632657 CALMAG THINS TABLET(CALCIUM CARB &CIT/MAGNESIUM OX) 1 EACH TABLET ORAL AT BEDTIME CALMAG THINS TABLET (CALCIUM CARB &CIT/MAGNESIUM OX) NDC: 00474014357 Dose: 1 TAB VITAMIN B COMPLEX(VITAMIN B COMPLEX) 1 EACH TABLET ORAL DAILY VITAMIN B COMPLEX (VITAMIN B COMPLEX) NDC: 81523068953 Dose: 1 TAB ASCORBIC ACID(ASCORBIC ACID) 500 MG TABLET ORAL DAILY Ascorbic Acid 500 MG Oral Tablet (RxNorm): 214694 Dose: 500 MG ASCORBIC ACID (ASCORBIC ACID) NDC: 10704853889 Vitamin D3(CHOLECALCIFEROL (VITAMIN D3)) 5000 UNIT TABLET ORAL AT BEDTIME Vitamin D3 (CHOLECALCIFEROL (VITAMIN D3)) NDC: 12116554916 Dose: 5000 UNIT Coq-10(UBIDECARENONE/OMEGA-3/VIT E) 200 MG CAPSULE ORAL DAILY Coq-10 ( UBIDECARENONE/OMEGA-3/VIT E) NDC: 33434537840 Dose: 200 MG RESVERATROL PLUS 100 MG TABLET(RESVERATROL/QUERCETIN) 1 EACH TABLET ORAL DAILY RESVERATROL PLUS 100 MG TABLET (RESVERATROL/QUERCETIN) NDC: 29896630376 Dose: 1 TAB PROBIOTIC(LACTOBACILLUS ACIDOPHILUS) 1 EACH CAPSULE ORAL WITH BREAKFAST &amp ; SUPPER PROBIOTIC (LACTOBACILLUS ACIDOPHILUS) NDC: 68837929673 Dose: 1 CAP Gas-X(SIMETHICONE) 125 MG CAPSULE ORAL 3 TIMES DAILY WITH MEALS Simethicone 125 MG Oral Capsule [Gas-X Extra Strength] (RxNorm): 767107 Dose: 125 MG Gas-X (SIMETHICONE) NDC: 67381533644 Keflex(CEPHALEXIN) 500 MG CAPSULE ORAL 4 TIMES DAILY Cephalexin 500 MG Oral Capsule (RxNorm): 720909 Dose: 500 MG Keflex (CEPHALEXIN) NDC: 95598386750 Inpatient/Ordered Medications - Medications administered during hospital visit Visit/Account #[id number] (June 14, 2016 7:24pm - June 20, 2016 1:39pm) Medication Route Sig/Schedule Precondition/Indication Comments/ Instructions Codes IV Medication INTRAVEN .Q1H (Rate: 1000 MLS/HR Duration: 1 HR) Carriers: Carriers: 1000 ML Sodium Chloride 9 MG/ML Injection (RxNorm): 5655513 NORMAL SALINE(SODIUM CHLORIDE) 1000 ML INJECTION NORMAL SALINE ( SODIUM CHLORIDE) NDC: 32552709968 Dose: 1000 ML IV Medication INTRAVEN NOW (Rate: 100 MLS/HR Duration: 30 MIN) Rx Order Comments: Additives: Order filed UNV: Additives: Dose Warnings differ from telephone order clerk room service meropenem 1000 MG Injection [Merrem] (RxNorm): 2713676 MERREM INJ(MEROPENEM) 1 GM INJECTION Label Comments: MERREM INJ ( MEROPENEM) NDC: 76108235004 Dose: 1 GM REFRIGERATE IMMEDIATELY Expires in 24 hours @ Carriers: Carriers: 50 ML Sodium Chloride 9 MG/ML Injection (RxNorm): 2871349 SODIUM CHLORIDE 50 ML INJECTION Dose: 50 ML (SODIUM CHLORIDE) NDC: 74413055158 IV Medication INTRAVEN NOW (Rate: 250 MLS/HR Duration: 2 HR) Label Comments: Additives: REFRIGERATE Additives: Vancomycin 1000 MG Injection (RxNorm): 4297750 VANCOCIN(VANCOMYCIN HCL) 1000 MG INJECTION VANCOCIN (VANCOMYCIN HCL) NDC: 37970914809 Dose: 2000 MG Carriers: Carriers: 500 ML Sodium Chloride 9 MG/ML Injection (RxNorm): 5930094 SODIUM CHLORIDE 500 ML INJECTION Dose: 500 ML (SODIUM CHLORIDE) NDC: 55424322150 COLACE(DOCUSATE SODIUM) 100 MG CAP ORAL TWICE A DAY Special Dose Instructions: Docusate Sodium 100 MG Oral Capsule (RxNorm): 9398821 Dose: 100 MG Continue home dosing of 5 at 1700 and 4 at 2300 COLACE (DOCUSATE SODIUM) NDC: 88243027227 VITAMIN C(ASCORBIC ACID) 500 MG TAB ORAL DAILY Ascorbic Acid 500 MG Oral Tablet (RxNorm): 761136 Dose: 500 MG VITAMIN C (ASCORBIC ACID) NDC: 44363771180 MILK OF MAGNESIA 400 MG/5 ML(MAGNESIUM HYDROXIDE) 30 ML SUSPENSION ORAL DAILY PRN Reason: CONSTIPATION Label Comments: Magnesium Hydroxide 80 MG/ML Oral Suspension (RxNorm): 021029 Dose: 30 ML SHAKE WELL. Use with caution in patients with renal dysfunction. MILK OF MAGNESIA 400 MG/5 ML (MAGNESIUM HYDROXIDE) NDC: 99747246177 DELTASONE(PredniSONE) 10 MG TAB ORAL AT BEDTIME Label Comments: {10 ( Prednisone 10 MG Oral Tablet) } Pack (RxNorm): 132306 Dose: 10 MG TAKE WITH FOOD OR MILK DELTASONE (PredniSONE) NDC: 11826593619 DELTASONE(PredniSONE) 10 MG TAB ORAL DAILY Rx Order Comments: {10 ( Prednisone 10 MG Oral Tablet) } Pack (RxNorm): 241406 Dose: 15 MG Order filed UNV: Allergies/Duplicates/Interactions differ from telephone order clerk room service DELTASONE ( PredniSONE) NDC: 21819981291 Label Comments: TAKE WITH FOOD OR MILK VITAMIN B12 + COMPLEX(VITAMIN B COMPLEX) 1 TAB TAB ORAL DAILY VITAMIN B12 + COMPLEX (VITAMIN B COMPLEX) NDC: 55013060116 Dose: 1 TAB COUMADIN(WARFARIN SOD) 2.5 MG TAB ORAL Q48H Label Comments: Warfarin Sodium 2.5 MG Oral Tablet [Coumadin] (RxNorm): 726364 Dose: 2.5 MG TERATOGENIC. WOMEN SHOULD NOT HANDLE OR CRUSH. COUMADIN (WARFARIN SOD) NDC: 32560028165 COUMADIN(WARFARIN SOD) 5 MG TAB ORAL Q48H Rx Order Comments: Warfarin Sodium 5 MG Oral Tablet [Coumadin] (RxNorm): 531272 Dose: 5 MG Order filed UNV: Allergies/Duplicates/Interactions differ from telephone order clerk room service COUMADIN ( WARFARIN SOD) NDC: [id number] Label Comments: TERATOGENIC. WOMEN SHOULD NOT HANDLE OR CRUSH. LEXAPRO(ESCITALOPRAM OXALATE) 10 MG TAB ORAL DAILY Label Comments: Escitalopram 10 MG Oral Tablet (RxNorm): 251279 Dose: 5 MG MAY INCREASE FALL RISK LEXAPRO (ESCITALOPRAM OXALATE) NDC: [id number] ROXICODONE(OxyCODONE HCL) 5 MG TAB ORAL EVERY 4 HOURS pain Label Comments: Oxycodone Hydrochloride 5 MG Oral Tablet (RxNorm): 3256873 Dose: 5 MG OXYCODONE IMMED RELEASE MAY INCREASE FALL RISK ROXICODONE (OxyCODONE HCL) NDC: 15124888862 LASIX INJ(FUROSEMIDE) 20 MG/2 ML INJECTION INTRAVEN BID@16 Label Comments: 2 ML Furosemide 10 MG/ML Injection (RxNorm): 9114483 Dose: 2 ML MAY INCREASE FALL RISK LASIX INJ (FUROSEMIDE) NDC: 73873449299 IV Medication INTRAVEN Q8S (Rate: 100 MLS/HR Duration: 30 MIN) Clinical Indication: ABX non-surgical pt Rx Order Comments: Additives: Order filed UNV: Additives: Dose Warnings differ from telephone order clerk room service Aztreonam 1000 MG Injection (RxNorm): 2440502 AZACTAM INJ(AZTREONAM) 1 GM INJECTION Label Comments: AZACTAM INJ ( AZTREONAM) NDC: 52974564014 Dose: 1 GM REFRIGERATE. Carriers: Carriers: 50 ML Sodium Chloride 9 MG/ML Injection (RxNorm): 5951540 SODIUM CHLORIDE 50 ML INJECTION Dose: 50 ML (SODIUM CHLORIDE) NDC: 74250637320 IV Medication INTRAVEN Q12S (Rate: 333.333 MLS/HR Duration: 1 HR 30 MIN) Clinical Indication: ABX non-surgical pt Label Comments: Additives: REFRIGERATE Additives: Expires 24 HRS after preparation Vancomycin 1000 MG Injection (RxNorm): 3350021 VANCOCIN(VANCOMYCIN HCL) 1000 MG INJECTION VANCOCIN (VANCOMYCIN HCL) NDC: 60975907040 Dose: 1750 MG Carriers: Carriers: 500 ML Sodium Chloride 9 MG/ML Injection (RxNorm): 8567395 SODIUM CHLORIDE 500 ML INJECTION Dose: 500 ML (SODIUM CHLORIDE) NDC: 18213898935 NOTE 1 EA MISC DOES NOT APPLY 0800 Label Comments: Dose: 1 EA A DRUG TROUGH IS DUE FOR _VANCOMYCIN_. DO NOT HANG THE DRUG UNTIL THE LEVEL IS RESULTED AND OKAY'D BY PHARMACY. COLACE(DOCUSATE SODIUM) 100 MG CAP ORAL 1700 Docusate Sodium 100 MG Oral Capsule (RxNorm): 6257007 Dose: 500 MG COLACE (DOCUSATE SODIUM) NDC: 23894944033 COLACE(DOCUSATE SODIUM) 100 MG CAP ORAL 2300 Docusate Sodium 100 MG Oral Capsule (RxNorm): 4945586 Dose: 400 MG COLACE (DOCUSATE SODIUM) NDC: 37235188773 LOVENOX(ENOXAPARIN) 40 MG/0.4 ML INJECTION SUBCUTANEOUSLY DAILY@06 Label Comments: 0.4 ML Enoxaparin sodium 100 MG/ML Prefilled Syringe [Lovenox] ( RxNorm): 087804 Dose: 0.4 ML INJECT SC INTO ABDOMINAL WALL ONLY. LOVENOX (ENOXAPARIN) NDC: 70870080593 GAS-X(SIMETHICONE) 80 MG TAB ORAL NEEDED PRN Reason: GAS Simethicone 80 MG Chewable Tablet (RxNorm): 669246 Dose: 80 MG GAS-X (SIMETHICONE) NDC: 30439466261 IV Medication INTRAVEN Q12H (Rate: 166.667 MLS/HR Duration: 1 HR 30 MIN) Clinical Indication: ABX non-surgical pt Label Comments: Additives: REFRIGERATE Additives: Expires 24 HRS after preparation Vancomycin 1000 MG Injection (RxNorm): 7389279 VANCOCIN(VANCOMYCIN HCL) 1000 MG INJECTION VANCOCIN (VANCOMYCIN HCL) NDC: 85333423330 Dose: 1500 MG Carriers: Carriers: 250 ML Sodium Chloride 9 MG/ML Injection (RxNorm): 6148776 SODIUM CHLORIDE 250 ML INJECTION Dose: 250 ML (SODIUM CHLORIDE) NDC: 42032511396 BENADRYL CRM(ZINC ACETATE/DIPHENHYDRAMINE) 30 GM CREAM TOPICALLY 4 TIMES DAILY PRN Reason: ITCHING/RASH Special Dose Instructions: Diphenhydramine Hydrochloride 10 MG/ML / Zinc Acetate 1 MG/ML Topical Cream [Benadryl Itch S ( RxNorm): 0554430 Dose: 0 GM 1 APPLICATION TO BENADRYL CRM (ZINC ACETATE/DIPHENHYDRAMINE) NDC: 90119189471 BENADRYL(DiphenhydrAMINE HCL) 25 MG CAP ORAL Q6H PRN Reason: RASH Label Comments: Diphenhydramine Hydrochloride 25 MG Oral Capsule (RxNorm): 0530767 Dose: 25 MG MAY INCREASE FALL RISK BENADRYL (DiphenhydrAMINE HCL) NDC: 34562475866 IV Medication INTRAVEN Q12S (Rate: 250 MLS/HR Duration: 1 HR) Clinical Indication: ABX non-surgical pt Label Comments: Additives: REFRIGERATE Additives: Expires 24 HRS @ ceftaroline fosamil 600 MG Injection [Teflaro] (RxNorm): 1793028 TEFLARO INJ(CEFTAROLINE FOSAMIL ACETATE) 600 MG INJECTION TEFLARO INJ (CEFTAROLINE FOSAMIL ACETATE) NDC: 76648443792 Dose: 600 MG Carriers: Carriers: 250 ML Sodium Chloride 9 MG/ML Injection (RxNorm): 8067337 SODIUM CHLORIDE 250 ML INJECTION Dose: 250 ML (SODIUM CHLORIDE) NDC: 28713662317 IV Medication INTRAVEN Q24H (Rate: 100 MLS/HR Duration: 30 MIN) Clinical Indication: ABX non-surgical pt Label Comments: Additives: REFRIGERATE Additives: Ceftriaxone 1000 MG Injection (RxNorm): 6091546 ROCEPHIN INJ(CefTRIAXone SOD) 1000 MG INJECTION ROCEPHIN INJ ( CefTRIAXone SOD) NDC: 02612950933 Dose: 1000 MG Carriers: Carriers: 50 ML Sodium Chloride 9 MG/ML Injection (RxNorm): 8253316 SODIUM CHLORIDE 50 ML INJECTION Dose: 50 ML (SODIUM CHLORIDE) NDC: 79274775071 NEURONTIN(GABAPENTIN) 300 MG CAP ORAL NOW Label Comments: gabapentin 300 MG Oral Capsule [Neurontin] (RxNorm): 220678 Dose: 300 MG MAY INCREASE FALL RISK NEURONTIN (GABAPENTIN) NDC: 66032511428 MIRAPEX(PRAMIPEXOLE) 0.25 MG TAB ORAL ONE TIME ORDER Label Comments: Pramipexole dihydrochloride 0.25 MG Oral Tablet [Mirapex] (RxNorm): 537234 Dose: 0.5 MG MAY INCREASE FALL RISK MIRAPEX (PRAMIPEXOLE) NDC: 79160352931 NEURONTIN(GABAPENTIN) 300 MG CAP ORAL 3 TIMES A DAY Label Comments: gabapentin 300 MG Oral Capsule [Neurontin] (RxNorm): 281519 Dose: 300 MG MAY INCREASE FALL RISK NEURONTIN (GABAPENTIN) NDC: 79418374175 KEFLEX(CEPHALEXIN) 500 MG CAP ORAL 4 X DAILY ABX Cephalexin 500 MG Oral Capsule (RxNorm): 073206 Dose: 500 MG KEFLEX (CEPHALEXIN) NDC: 51996872153 Discharge Medications - Medications that patient should continue to take. Review with physician Visit/Account #[id number] (June 14, 2016 7:24pm - June 20, 2016 1:39pm) Medication Route Sig/Schedule Precondition/Indication Comments/ Instructions Codes COUMADIN(WARFARIN SODIUM) 5 MG TAB ORAL EVERY 48 HOURS Rx Instructions: Warfarin Sodium 5 MG Oral Tablet [Coumadin] (RxNorm): 286334 Dose: 5 MG *ALTERNATES W 2.5 MG* COUMADIN (WARFARIN SODIUM) NDC: 86896445655 MILK OF MAGNESIA(MAGNESIUM HYDROXIDE) 400 MG/5 ML ORAL.SUSP ORAL DAILY CONSTIPATION Magnesium Hydroxide 80 MG/ML Oral Suspension (RxNorm): 213164 Dose: 30 ML MILK OF MAGNESIA (MAGNESIUM HYDROXIDE) NDC: 03908753794 COUMADIN(WARFARIN SODIUM) 5 MG TAB ORAL EVERY 48 HOURS Rx Instructions: Warfarin Sodium 5 MG Oral Tablet [Coumadin] (RxNorm): 876406 Dose: 2.5 MG *ALTERNATES W 5 MG* COUMADIN (WARFARIN SODIUM) NDC: 31101544855 Senna S Tablet(SENNOSIDES/DOCUSATE SODIUM) 1 TAB TABLET ORAL AT BEDTIME Rx Note Text Comments: Docusate Sodium 50 MG / sennosides, [facility] 8.6 MG Oral Tablet (RxNorm): 966905 Dose: 8 TAB *PT STATES HE TAKES BETWEEN 5-10 TABS @HS DEPENDING ON HOW HE FEELS* Senna S Tablet (SENNOSIDES/DOCUSATE SODIUM) NDC: 37884617437 ESCITALOPRAM OXALATE(ESCITALOPRAM OXALATE) 5 MG TABLET ORAL DAILY Escitalopram 5 MG Oral Tablet (RxNorm): 386872 Dose: 5 MG ESCITALOPRAM OXALATE (ESCITALOPRAM OXALATE) NDC: 05049006760 DELTASONE(PredniSONE) 10 MG TAB ORAL DAILY {10 (Prednisone 10 MG Oral Tablet) } Pack (RxNorm): 391982 Dose: 15 MG DELTASONE (PredniSONE) NDC: 20632316624 OXYCONTIN(OxyCODONE) 10 MG TAB.ER.12H ORAL Q5S PAIN Rx Note Text Comments: 12 HR Oxycodone Hydrochloride 10 MG Extended Release Oral Tablet [Oxycontin] ( RxNorm): 6266121 Dose: 10 MG *LF 06/12/16 #150* OXYCONTIN (OxyCODONE) NDC: 88702916841 DELTASONE(PredniSONE) 10 MG TAB ORAL AT BEDTIME {10 (Prednisone 10 MG Oral Tablet) } Pack (RxNorm): 974890 Dose: 10 MG DELTASONE (PredniSONE) NDC: 08248525987 CALMAG THINS TABLET(CALCIUM CARB &CIT/MAGNESIUM OX) 1 EACH TABLET ORAL AT BEDTIME CALMAG THINS TABLET (CALCIUM CARB &CIT/MAGNESIUM OX) NDC: 39485387233 Dose: 1 TAB VITAMIN B COMPLEX(VITAMIN B COMPLEX) 1 EACH TABLET ORAL DAILY VITAMIN B COMPLEX (VITAMIN B COMPLEX) NDC: 45443962430 Dose: 1 TAB ASCORBIC ACID(ASCORBIC ACID) 500 MG TABLET ORAL DAILY Ascorbic Acid 500 MG Oral Tablet (RxNorm): 137062 Dose: 500 MG ASCORBIC ACID (ASCORBIC ACID) NDC: 88858832540 Vitamin D3(CHOLECALCIFEROL (VITAMIN D3)) 5000 UNIT TABLET ORAL AT BEDTIME Vitamin D3 (CHOLECALCIFEROL (VITAMIN D3)) NDC: 62802799734 Dose: 5000 UNIT Coq-10(UBIDECARENONE/OMEGA-3/VIT E) 200 MG CAPSULE ORAL DAILY Coq-10 ( UBIDECARENONE/OMEGA-3/VIT E) NDC: 73301107897 Dose: 200 MG RESVERATROL PLUS 100 MG TABLET(RESVERATROL/QUERCETIN) 1 EACH TABLET ORAL DAILY RESVERATROL PLUS 100 MG TABLET (RESVERATROL/QUERCETIN) NDC: 57798472255 Dose: 1 TAB PROBIOTIC(LACTOBACILLUS ACIDOPHILUS) 1 EACH CAPSULE ORAL WITH BREAKFAST &amp ; SUPPER PROBIOTIC (LACTOBACILLUS ACIDOPHILUS) NDC: 33393725291 Dose: 1 CAP Gas-X(SIMETHICONE) 125 MG CAPSULE ORAL 3 TIMES DAILY WITH MEALS Simethicone 125 MG Oral Capsule [Gas-X Extra Strength] (RxNorm): 432688 Dose: 125 MG Gas-X (SIMETHICONE) NDC: 65658255468 Keflex(CEPHALEXIN) 500 MG CAPSULE ORAL 4 TIMES DAILY Cephalexin 500 MG Oral Capsule (RxNorm): 342615 Dose: 500 MG Keflex (CEPHALEXIN) NDC: 62289642970 History Of Encounters Encounters Visit/Account #[id number] (June 14, 2016 7:24pm - June 20, 2016 1:39pm) Account Physican Of Reason For Visit Visit Start Stop Status Record Diagnosis Date/Time Date/Time TONIE KERR MD IMMUNOSUPPRESSED STATUS, LEFT LEG CELLULITIS L03.116: CELLULITIS OF LEFT LOWER LIMB ICD10 Jun 14, 2016 7:24pm Jun 14, 2016 10:04pm IN ANTHONY MONTE MD IMMUNOSUPPRESSED STATUS, LEFT LEG CELLULITIS L03.116: CELLULITIS OF LEFT LOWER LIMB ICD10 Jun 14, 2016 8:55pm June 20, 2016 1:39pm History of Procedures Procedure List No procedures recorded. Discharge Instructions Discharge Instructions Visit/Account #[id number] (June 14, 2016 7:24pm - June 20, 2016 1:39pm) DISCHARGE INSTRUCTIONS Physician Documentation PROVIDER INSTRUCTIONS Discharge Diet As Tolerated Discharge Activity/Weight Bearing Status As tolerated Discharge Diet As Tolerated Discharge Activity/Weight Bearing Status As tolerated CARE MANAGEMENT/HOME HEALTH Care Management follow-up in wound clinic next week WOUND/INCISION/CATHETER CARE Incision/Wound Care Change dressing as presently doing REASON TO CALL PROVIDER Notify Physician if: fever over 100.5 by mouth, increased shortness of breath , increasing drainage from wounds or increased swelling or redness in legs or elsewhere. FOLLOW UP APPOINTMENTS Follow Up Appointment Date/Time: 1) Dr. Jones on Sunday, July 03, 2016 at 2:30 PM. He will determine if you need more antibiotics. 2) Dr. Pearson on Sunday, July 17, 2016 at 2:45 PM Follow up lab (Protime/INR) for coumadin/warfarin dose: 07/[address] Pearson' s office Social History Social History No Social History Data. Immunizations Immunizations Patient Unit Number: [id number] Immunizations No immunizations recorded.
--- OUTSIDE RECORDS SUMMARY | 2017-03-15 16:10 | External Medical Summary | Continuity Of Care Document ---
:1940 Author Organization [facility] Address [address] [place] [address] Phone Care Team Providers Name Role Phone BRYSON KERR MD, ZULEMA Admitting Provider CAITLIN JAMES, GENEVIEVE Denise Attending Provider JAN JAMES, CRISTEL Garcia Consulting Provider VIKASH JAMES, BALAJI Wagner Consulting Provider CORY JAMES, JOHN Gay Primary Care Provider Results Lab Results Visit/Account #[id number] (October 10, 2016 10:04am - October 20, 2016 11: 50am) Test Result Date/Time POC LACTIC ACID VENOUS POC LACTIC ACID VENOUS(0.90-1.70 MMOL/L) 1.76 MMOL/L October 10, 2016 12:41pm COMPLETE BLOOD COUNT WITH DIFF WHITE BLOOD COUNT(4.0-11.0 10E3/UL) 15.8 10E3/UL October 12, 2016 6:58am RED BLOOD COUNT(4.50-5.90 10E6/UL) 4.29 10E6/UL October 12, 2016 6:58am HEMOGLOBIN(13.5-17.5 G/DL) 13.4 G/DL October 12, 2016 6:58am HEMATOCRIT(41.0-53.0 %) 40.3 % October 12, 2016 6:58am MEAN CORPUSCULAR VOLUME(82.0-100.0 FL) 93.9 FL October 12, 2016 6:58am MEAN CORPUSCULAR HEMOGLOBIN(26.0-34.0 PG) 31.2 PG October 12, 2016 6:58am MEAN CORPUSCULAR HGB CONC(31.5-36.5 G/DL) 33.3 G/DL October 12, 2016 6:58am RED CELL DISTRIBUTION WIDTH(11.5-14.5 %) 15.9 % October 12, 2016 6:58am 777-3: PLATELET COUNT(150-450 10E3/UL) 197 10E3/UL October 12, 2016 6:58am MEAN PLATELET VOLUME(8.2-12.4 FL) 9.8 FL October 12, 2016 6:58am NEUTROPHILS % (AUTO)(40-70 %) 81 % October 12, 2016 6:58am LYMPHOCYTES % (AUTO)(15-45 %) 5 % October 12, 2016 6:58am MONOCYTES % (AUTO)(2-10 %) 6 % October 12, 2016 6:58am EOSINOPHILS % (AUTO)(0-6 %) 3 % October 12, 2016 6:58am BASOPHILS % (AUTO)(0-1 %) 0 % October 12, 2016 6:58am IMMATURE GRANS % (AUTO)(0-0 %) 5 % October 12, 2016 6:58am NUCLEATED RBCS (AUTO)(0-0 %) 0 % October 12, 2016 6:58am NEUTROPHILS # (AUTO)(2.5-7.5 10E3/UL) 12.8 10E3/UL October 12, 2016 6:58am LYMPHOCYTES # (AUTO)(1.0-4.0 10E3/UL) 0.8 10E3/UL October 12, 2016 6:58am MONOCYTES # (AUTO)(0.2-0.8 10E3/UL) 0.9 10E3/UL October 12, 2016 6:58am EOSINOPHILS # (AUTO)(0.0-0.4 10E3/UL) 0.4 10E3/UL October 12, 2016 6:58am BASOPHILS # (AUTO)(0.0-0.2 10E3/UL) 0.1 10E3/UL October 12, 2016 6:58am IMMATURE GRANS # (AUTO)(0.0-0.0 10E3/UL) 0.8 10E3/UL October 12, 2016 6:58am DIFF TYPE AUTOMATED October 12, 2016 6:58am CBC WITH REFLEXED MANUAL DIFF WHITE BLOOD COUNT(4.0-11.0 10E3/UL) 14.2 10E3/UL October 10, 2016 10:28am 14.6 10E3/UL October 11, 2016 7:16am 12.5 10E3/UL October 13, 2016 6:05am 14.8 10E3/UL October 14, 2016 8:17am 16.8 10E3/UL October 15, 2016 7:57am 17.0 10E3/UL October 16, 2016 9:25am 15.3 10E3/UL October 17, 2016 5:52am 15.9 10E3/UL October 18, 2016 6:04am 10.4 10E3/UL October 19, 2016 5:10am 12.4 10E3/UL October 20, 2016 5:45am RED BLOOD COUNT(4.50-5.90 10E6/UL) 4.69 10E6/UL October 10, 2016 10:28am 3.88 10E6/UL October 11, 2016 7:16am 4.14 10E6/UL October 13, 2016 6:05am 4.40 10E6/UL October 14, 2016 8:17am 4.47 10E6/UL October 15, 2016 7:57am 4.33 10E6/UL October 16, 2016 9:25am 4.18 10E6/UL October 17, 2016 5:52am 3.94 10E6/UL October 18, 2016 6:04am 5.09 10E6/UL October 19, 2016 5:10am 3.85 10E6/UL October 20, 2016 5:45am HEMOGLOBIN(13.5-17.5 G/DL) 14.5 G/DL October 10, 2016 10:28am 12.2 G/DL October 11, 2016 7:16am 12.7 G/DL October 13, 2016 6:05am 13.6 G/DL October 14, 2016 8:17am 13.5 G/DL October 15, 2016 7:57am 13.6 G/DL October 16, 2016 9:25am 12.8 G/DL October 17, 2016 5:52am 12.3 G/DL October 18, 2016 6:04am 15.8 G/DL October 19, 2016 5:10am 11.8 G/DL October 20, 2016 5:45am HEMATOCRIT(41.0-53.0 %) 45.1 % October 10, 2016 10:28am 36.6 % October 11, 2016 7:16am 39.1 % October 13, 2016 6:05am 41.3 % October 14, 2016 8:17am 41.8 % October 15, 2016 7:57am 40.6 % October 16, 2016 9:25am 38.9 % October 17, 2016 5:52am 37.8 % October 18, 2016 6:04am 48.5 % October 19, 2016 5:10am 37.2 % October 20, 2016 5:45am MEAN CORPUSCULAR VOLUME(82.0-100.0 FL) 96.2 FL October 10, 2016 10:28am 94.3 FL October 11, 2016 7:16am 94.4 FL October 13, 2016 6:05am 93.9 FL October 14, 2016 8:17am 93.5 FL October 15, 2016 7:57am 93.8 FL October 16, 2016 9:25am 93.1 FL October 17, 2016 5:52am 95.9 FL October 18, 2016 6:04am 95.3 FL October 19, 2016 5:10am 96.6 FL October 20, 2016 5:45am MEAN CORPUSCULAR HEMOGLOBIN(26.0-34.0 PG) 30.9 PG October 10, 2016 10:28am 31.4 PG October 11, 2016 7:16am 30.7 PG October 13, 2016 6:05am 30.9 PG October 14, 2016 8:17am 30.2 PG October 15, 2016 7:57am 31.4 PG October 16, 2016 9:25am 30.6 PG October 17, 2016 5:52am 31.2 PG October 18, 2016 6:04am 31.0 PG October 19, 2016 5:10am 30.6 PG October 20, 2016 5:45am MEAN CORPUSCULAR HGB CONC(31.5-36.5 G/DL) 32.2 G/DL October 10, 2016 10:28am 33.3 G/DL October 11, 2016 7:16am 32.5 G/DL October 13, 2016 6:05am 32.9 G/DL October 14, 2016 8:17am 32.3 G/DL October 15, 2016 7:57am 33.5 G/DL October 16, 2016 9:25am 32.9 G/DL October 17, 2016 5:52am 32.5 G/DL October 18, 2016 6:04am 32.6 G/DL October 19, 2016 5:10am 31.7 G/DL October 20, 2016 5:45am RED CELL DISTRIBUTION WIDTH(11.5-14.5 %) 16.1 % October 10, 2016 10:28am 16.3 % October 11, 2016 7:16am 15.6 % October 13, 2016 6:05am 15.6 % October 14, 2016 8:17am 15.7 % October 15, 2016 7:57am 16.0 % October 16, 2016 9:25am 16.0 % October 17, 2016 5:52am 16.1 % October 18, 2016 6:04am 16.3 % October 19, 2016 5:10am 16.4 % October 20, 2016 5:45am 777-3: PLATELET COUNT(150-450 10E3/UL) 248 10E3/UL October 10, 2016 10:28am 198 10E3/UL October 11, 2016 7:16am 206 10E3/UL October 13, 2016 6:05am 212 10E3/UL October 14, 2016 8:17am 230 10E3/UL October 15, 2016 7:57am 231 10E3/UL October 16, 2016 9:25am 235 10E3/UL October 17, 2016 5:52am 239 10E3/UL October 18, 2016 6:04am 185 10E3/UL October 19, 2016 5:10am 221 10E3/UL October 20, 2016 5:45am MEAN PLATELET VOLUME(8.2-12.4 FL) 10.0 FL October 10, 2016 10:28am 9.6 FL October 11, 2016 7:16am 10.2 FL October 13, 2016 6:05am 10.0 FL October 14, 2016 8:17am 10.3 FL October 15, 2016 7:57am 9.9 FL October 16, 2016 9:25am 10.1 FL October 17, 2016 5:52am 10.1 FL October 18, 2016 6:04am 9.6 FL October 19, 2016 5:10am 9.6 FL October 20, 2016 5:45am NEUTROPHILS % (AUTO)(40-70 %) 73 % October 20, 2016 5:45am LYMPHOCYTES % (AUTO)(15-45 %) 7 % October 20, 2016 5:45am MONOCYTES % (AUTO)(2-10 %) 6 % October 20, 2016 5:45am EOSINOPHILS % (AUTO)(0-6 %) 3 % October 20, 2016 5:45am BASOPHILS % (AUTO)(0-1 %) 1 % October 20, 2016 5:45am NEUTROPHILS # (AUTO)(2.5-7.5 10E3/UL) 8.9 10E3/UL October 20, 2016 5:45am LYMPHOCYTES # (AUTO)(1.0-4.0 10E3/UL) 0.9 10E3/UL October 20, 2016 5:45am MONOCYTES # (AUTO)(0.2-0.8 10E3/UL) 0.8 10E3/UL October 20, 2016 5:45am EOSINOPHILS # (AUTO)(0.0-0.4 10E3/UL) 0.4 10E3/UL October 20, 2016 5:45am BASOPHILS # (AUTO)(0.0-0.2 10E3/UL) 0.1 10E3/UL October 20, 2016 5:45am DIFF TYPE MANUAL October 10, 2016 10:28am MANUAL October 11, 2016 7:16am MANUAL October 13, 2016 6:05am MANUAL October 14, 2016 8:17am MANUAL October 15, 2016 7:57am MANUAL October 16, 2016 9:25am MANUAL October 17, 2016 5:52am MANUAL October 18, 2016 6:04am MANUAL October 19, 2016 5:10am MANUAL October 20, 2016 5:45am NEUTROPHIL % (MANUAL)(40-70 %) 78 % October 10, 2016 10:28am 88 % October 11, 2016 7:16am 79 % October 13, 2016 6:05am 82 % October 14, 2016 8:17am 80 % October 15, 2016 7:57am 91 % October 16, 2016 9:25am 78 % October 17, 2016 5:52am 78 % October 18, 2016 6:04am 74 % October 19, 2016 5:10am 78 % October 20, 2016 5:45am BANDS%(0-3 %) 6 % October 10, 2016 10:28am 1 % October 13, 2016 6:05am 6 % October 14, 2016 8:17am 1 % October 15, 2016 7:57am 1 % October 17, 2016 5:52am 4 % October 19, 2016 5:10am 2 % October 20, 2016 5:45am LYMPHOCYTES % (MANUAL)(15-45 %) 3 % October 10, 2016 10:28am 2 % October 11, 2016 7:16am 6 % October 13, 2016 6:05am 7 % October 14, 2016 8:17am 5 % October 15, 2016 7:57am 4 % October 16, 2016 9:25am 9 % October 17, 2016 5:52am 12 % October 18, 2016 6:04am 9 % October 19, 2016 5:10am 10 % October 20, 2016 5:45am MONOCYTES % (MANUAL)(2-10 %) 5 % October 10, 2016 10:28am 4 % October 11, 2016 7:16am 4 % October 13, 2016 6:05am 1 % October 14, 2016 8:17am 8 % October 15, 2016 7:57am 3 % October 16, 2016 9:25am 7 % October 17, 2016 5:52am 3 % October 18, 2016 6:04am 3 % October 19, 2016 5:10am 3 % October 20, 2016 5:45am EOSINOPHILS % (MANUAL)(0-6 %) 3 % October 10, 2016 10:28am 1 % October 11, 2016 7:16am 5 % October 13, 2016 6:05am 1 % October 14, 2016 8:17am 1 % October 15, 2016 7:57am 1 % October 16, 2016 9:25am 2 % October 17, 2016 5:52am 4 % October 18, 2016 6:04am 4 % October 19, 2016 5:10am 2 % October 20, 2016 5:45am BASOPHILS % (MANUAL)(0-1 %) 1 % October 10, 2016 10:28am 0 % October 11, 2016 7:16am 0 % October 13, 2016 6:05am 2 % October 14, 2016 8:17am 1 % October 15, 2016 7:57am 1 % October 16, 2016 9:25am 0 % October 17, 2016 5:52am 1 % October 18, 2016 6:04am 1 % October 19, 2016 5:10am 2 % October 20, 2016 5:45am METAMYELOCYTES %(0-0 %) 1 % October 10, 2016 10:28am 4 % October 11, 2016 7:16am 1 % October 13, 2016 6:05am 1 % October 14, 2016 8:17am 3 % October 15, 2016 7:57am 2 % October 17, 2016 5:52am 2 % October 18, 2016 6:04am 4 % October 19, 2016 5:10am 1 % October 20, 2016 5:45am MYELOCYTES % (MANUAL)(0-0 %) 3 % October 10, 2016 10:28am 1 % October 11, 2016 7:16am 4 % October 13, 2016 6:05am 1 % October 15, 2016 7:57am 1 % October 17, 2016 5:52am 1 % October 19, 2016 5:10am 2 % October 20, 2016 5:45am NUCLEATED RBCS (MANUAL)(0-0 %) 0 % October 10, 2016 10:28am 0 % October 11, 2016 7:16am 0 % October 13, 2016 6:05am 0 % October 14, 2016 8:17am 0 % October 15, 2016 7:57am 0 % October 16, 2016 9:25am 0 % October 17, 2016 5:52am 0 % October 18, 2016 6:04am 0 % October 19, 2016 5:10am 0 % October 20, 2016 5:45am NEUTROPHILS # (MANUAL)(2.5-7.5 10E3/UL) 11.9 10E3/UL October 10, 2016 10:28am 12.8 10E3/UL October 11, 2016 7:16am 10.0 10E3/UL October 13, 2016 6:05am 13.0 10E3/UL October 14, 2016 8:17am 13.6 10E3/UL October 15, 2016 7:57am 15.5 10E3/UL October 16, 2016 9:25am 12.1 10E3/UL October 17, 2016 5:52am 12.4 10E3/UL October 18, 2016 6:04am 8.1 10E3/UL October 19, 2016 5:10am 9.9 10E3/UL October 20, 2016 5:45am LYMPHOCYTES # (MANUAL)(1.0-4.0 10E3/UL) 0.4 10E3/UL October 10, 2016 10:28am 0.3 10E3/UL October 11, 2016 7:16am 0.8 10E3/UL October 13, 2016 6:05am 1.0 10E3/UL October 14, 2016 8:17am 0.8 10E3/UL October 15, 2016 7:57am 0.7 10E3/UL October 16, 2016 9:25am 1.4 10E3/UL October 17, 2016 5:52am 1.9 10E3/UL October 18, 2016 6:04am 0.9 10E3/UL October 19, 2016 5:10am 1.2 10E3/UL October 20, 2016 5:45am MONOCYTES # (MANUAL)(0.2-0.8 10E3/UL) 0.7 10E3/UL October 10, 2016 10:28am 0.6 10E3/UL October 11, 2016 7:16am 0.5 10E3/UL October 13, 2016 6:05am 0.1 10E3/UL October 14, 2016 8:17am 1.3 10E3/UL October 15, 2016 7:57am 0.5 10E3/UL October 16, 2016 9:25am 1.1 10E3/UL October 17, 2016 5:52am 0.5 10E3/UL October 18, 2016 6:04am 0.3 10E3/UL October 19, 2016 5:10am 0.4 10E3/UL October 20, 2016 5:45am EOSINOPHILS # (MANUAL)(0.0-0.4 10E3/UL) 0.4 10E3/UL October 10, 2016 10:28am 0.1 10E3/UL October 11, 2016 7:16am 0.6 10E3/UL October 13, 2016 6:05am 0.1 10E3/UL October 14, 2016 8:17am 0.2 10E3/UL October 15, 2016 7:57am 0.2 10E3/UL October 16, 2016 9:25am 0.3 10E3/UL October 17, 2016 5:52am 0.6 10E3/UL October 18, 2016 6:04am 0.4 10E3/UL October 19, 2016 5:10am 0.2 10E3/UL October 20, 2016 5:45am BASOPHILS # (MANUAL)(0.0-0.2 10E3/UL) 0.1 10E3/UL October 10, 2016 10:28am 0.0 10E3/UL October 11, 2016 7:16am 0.0 10E3/UL October 13, 2016 6:05am 0.3 10E3/UL October 14, 2016 8:17am 0.2 10E3/UL October 15, 2016 7:57am 0.2 10E3/UL October 16, 2016 9:25am 0.0 10E3/UL October 17, 2016 5:52am 0.2 10E3/UL October 18, 2016 6:04am 0.1 10E3/UL October 19, 2016 5:10am 0.2 10E3/UL October 20, 2016 5:45am IMMATURE MYELOID CELLS #(0-0 10E3/UL) 0.6 10E3/UL October 10, 2016 10:28am 0.7 10E3/UL October 11, 2016 7:16am 0.6 10E3/UL October 13, 2016 6:05am 0.1 10E3/UL October 14, 2016 8:17am 0.7 10E3/UL October 15, 2016 7:57am 0.5 10E3/UL October 17, 2016 5:52am 0.3 10E3/UL October 18, 2016 6:04am 0.5 10E3/UL October 19, 2016 5:10am 0.4 10E3/UL October 20, 2016 5:45am PLATELET ESTIMATE ADEQUATE October 10, 2016 10:28am ADEQUATE October 11, 2016 7:16am ADEQUATE October 13, 2016 6:05am ADEQUATE October 14, 2016 8:17am ADEQUATE October 15, 2016 7:57am ADEQUATE October 16, 2016 9:25am ADEQUATE October 17, 2016 5:52am ADEQUATE October 18, 2016 6:04am ADEQUATE October 19, 2016 5:10am ADEQUATE October 20, 2016 5:45am WBC MORPHOLOGY COMMENT NORMAL October 10, 2016 10:28am NORMAL October 11, 2016 7:16am NORMAL October 13, 2016 6:05am NORMAL October 14, 2016 8:17am NORMAL October 15, 2016 7:57am NORMAL October 16, 2016 9:25am NORMAL October 17, 2016 5:52am NORMAL October 18, 2016 6:04am NORMAL October 19, 2016 5:10am NORMAL October 20, 2016 5:45am RBC MORPHOLOGY COMMENT NORMAL October 10, 2016 10:28am NORMAL October 11, 2016 7:16am NORMAL October 13, 2016 6:05am NORMAL October 14, 2016 8:17am NORMAL October 15, 2016 7:57am NORMAL October 16, 2016 9:25am NORMAL October 17, 2016 5:52am NORMAL October 18, 2016 6:04am NORMAL October 19, 2016 5:10am NORMAL October 20, 2016 5:45am PLATELET MORPHOLOGY COMMENT NORMAL October 10, 2016 10:28am NORMAL October 11, 2016 7:16am NORMAL October 13, 2016 6:05am NORMAL October 14, 2016 8:17am NORMAL October 15, 2016 7:57am NORMAL October 16, 2016 9:25am NORMAL October 17, 2016 5:52am NORMAL October 18, 2016 6:04am NORMAL October 19, 2016 5:10am NORMAL October 20, 2016 5:45am PROTHROMBIN TIME WITH INR PROTHROMBIN TIME(12.1-14.0 SEC) 30.5 SEC October 10, 2016 10:20am 39.1 SEC October 11, 2016 7:16am 40.3 SEC October 12, 2016 6:58am 35.4 SEC October 13, 2016 6:05am 26.7 SEC October 14, 2016 8:16am 21.9 SEC October 15, 2016 7:57am 20.2 SEC October 16, 2016 9:25am 18.6 SEC October 17, 2016 5:52am 19.1 SEC October 18, 2016 6:04am 18.2 SEC October 19, 2016 5:10am 18.2 SEC October 20, 2016 5:45am 19085-8: INR 2.9 October 10, 2016 10:20am 3.9 October 11, 2016 7:16am 4.1 October 12, 2016 6:58am 3.5 October 13, 2016 6:05am 2.4 October 14, 2016 8:16am 1.9 October 15, 2016 7:57am 1.7 October 16, 2016 9:25am 1.5 October 17, 2016 5:52am 1.6 October 18, 2016 6:04am 1.5 October 19, 2016 5:10am 1.5 October 20, 2016 5:45am PARTIAL THROMBOPLASTIN TIME PARTIAL THROMBOPLASTIN TIME(22.2-37.4 SEC) 36.0 SEC October 10, 2016 10:20am UA WITH SCREEN FOR CULTURE COLOR,URINE YELLOW October 10, 2016 1:00pm CLARITY,URINE SLIGHTLY CLOUDY October 10, 2016 1:00pm GLUCOSE, URINE(NEGATIVE MG/DL) NEGATIVE MG/DL October 10, 2016 1:00pm URINE BILIRUBIN(NEGATIVE) NEGATIVE October 10, 2016 1:00pm KETONES,URINE(NEGATIVE MG/DL) NEGATIVE MG/DL October 10, 2016 1:00pm URINE SPECIFIC GRAVITY(1.001-1.035) 1.009 October 10, 2016 1:00pm URINE BLOOD(NEGATIVE) SMALL October 10, 2016 1:00pm URINE PH(5.0-9.0) 8.0 October 10, 2016 1:00pm URINE PROTEIN(Less than 20 MG/DL) TRACE MG/DL October 10, 2016 1:00pm URINE UROBILINOGEN(0.2-1.0 MG/DL) 0.2-1.0 MG/DL October 10, 2016 1:00pm URINE NITRITE(NEGATIVE) POSITIVE October 10, 2016 1:00pm LEUKOCYTE ESTERASE ,URINE(NEGATIVE) LARGE October 10, 2016 1:00pm URINE RBCS(0-3 /HPF) 8-12 /HPF October 10, 2016 1:00pm URINE WBCS(0-3 /HPF) 51-100 /HPF October 10, 2016 1:00pm URINE EPITHELIAL CELLS(0-3 /HPF) 0-3 /HPF October 10, 2016 1:00pm URINE HYALINE CASTS(0-3 /LPF) 13-20 /LPF October 10, 2016 1:00pm URINE BACTERIA(NEGATIVE /HPF) 4+ /HPF October 10, 2016 1:00pm URINE CULTURE TO FOLLOW October 10, 2016 1:00pm URINE MICROSCOPIC REQUIRED YES October 10, 2016 1:00pm URINE CRYSTALS(NONE SEEN /HPF) NONE SEEN /HPF October 10, 2016 1:00pm URINE OTHER CASTS(NONE SEEN /LPF) NONE SEEN /LPF October 10, 2016 1:00pm URINE COMMENTS 8-12 YEAST/HPF October 10, 2016 1:00pm COMPLETE METABOLIC PROFILE GLUCOSE(70-110 MG/DL) 124 MG/DL October 10, 2016 10:28am BLOOD UREA NITROGEN(6-20 MG/DL) 14 MG/DL October 10, 2016 10:28am CREATININE(0.50-1.20 MG/DL) 0.76 MG/DL October 10, 2016 10:28am EST GLOMERULAR FILTRATION RATE(Greater than or equal to 60) Greater than or equal to 60 October 10, 2016 10:28am Result Comments: If the patient is of -[place] descent/extraction multiply the eGFR value by 1.212 to obtain the actual eGFR. >=60 mg/dL Normal 30-59 mg/dL Moderate Kidney Disease 15-29 mg/dL Severe Kidney Disease <15 mg/dL Kidney Failure BUN CREATININE RATIO(10.0-20.0 RATIO) 18.0 RATIO October 10, 2016 10:28am SODIUM(135-145 MMOL/L) 128 MMOL/L October 10, 2016 10:28am POTASSIUM(3.6-5.0 MMOL/L) 4.1 MMOL/L October 10, 2016 10:28am CHLORIDE(101-111 MMOL/L) 84 MMOL/L October 10, 2016 10:28am CO2(21-31 MMOL/L) 35 MMOL/L October 10, 2016 10:28am ANION GAP(8-18) 13 October 10, 2016 10:28am OSMO CALCULATED(270.0-290.0) 259.0 October 10, 2016 10:28am CALCIUM(8.5-10.5 MG/DL) 8.6 MG/DL October 10, 2016 10:28am BILIRUBIN,TOTAL(0.1-1.2 MG/DL) 0.8 MG/DL October 10, 2016 10:28am ALKALINE PHOSPHATASE(42-121 IU/L) 59 IU/L October 10, 2016 10:28am ASPARTATE AMINO TRANSFERASE(10-42 IU/L) 28 IU/L October 10, 2016 10:28am ALANINE AMINOTRANSFERASE(10-60 IU/L) 25 IU/L October 10, 2016 10:28am TOTAL PROTEIN(6.4-8.2 G/DL) 7.3 G/DL October 10, 2016 10:28am ALBUMIN(3.5-5.5 G/DL) 3.1 G/DL October 10, 2016 10:28am GLOBULIN(2.4-3.6) 4.2 October 10, 2016 10:28am ALBUMIN/GLOBULIN RATIO(0.9-1.8 RATIO) 0.7 RATIO October 10, 2016 10:28am BASIC METABOLIC PANEL GLUCOSE(70-110 MG/DL) 112 MG/DL October 11, 2016 7:16am 168 MG/DL October 12, 2016 6:58am 107 MG/DL October 13, 2016 6:05am 150 MG/DL October 14, 2016 8:16am 115 MG/DL October 15, 2016 7:57am 180 MG/DL October 16, 2016 9:25am 105 MG/DL October 17, 2016 5:52am 107 MG/DL October 18, 2016 6:04am 125 MG/DL October 19, 2016 5:10am 98 MG/DL October 20, 2016 5:45am BLOOD UREA NITROGEN(6-20 MG/DL) 15 MG/DL October 11, 2016 7:16am 20 MG/DL October 12, 2016 6:58am 27 MG/DL October 13, 2016 6:05am 32 MG/DL October 14, 2016 8:16am 36 MG/DL October 15, 2016 7:57am 34 MG/DL October 16, 2016 9:25am 37 MG/DL October 17, 2016 5:52am 36 MG/DL October 18, 2016 6:04am 31 MG/DL October 19, 2016 5:10am 28 MG/DL October 20, 2016 5:45am CREATININE(0.50-1.20 MG/DL) 0.78 MG/DL October 11, 2016 7:16am 0.83 MG/DL October 12, 2016 6:58am 0.81 MG/DL October 13, 2016 6:05am 0.93 MG/DL October 14, 2016 8:16am 0.91 MG/DL October 15, 2016 7:57am 0.93 MG/DL October 16, 2016 9:25am 0.79 MG/DL October 17, 2016 5:52am 0.76 MG/DL October 18, 2016 6:04am 0.69 MG/DL October 19, 2016 5:10am 0.74 MG/DL October 20, 2016 5:45am EST GLOMERULAR FILTRATION RATE(Greater than or equal to 60) Greater than or equal to 60 October 11, 2016 7:16am Result Comments: If the patient is of -[place] descent/extraction multiply the eGFR value by 1.212 to obtain the actual eGFR. >=60 mg/dL Normal 30-59 mg/dL Moderate Kidney Disease 15-29 mg/dL Severe Kidney Disease <15 mg/dL Kidney Failure Greater than or equal to 60 October 12, 2016 6:58am Result Comments: If the patient is of -[place] descent/extraction multiply the eGFR value by 1.212 to obtain the actual eGFR. >=60 mg/dL Normal 30-59 mg/dL Moderate Kidney Disease 15-29 mg/dL Severe Kidney Disease <15 mg/dL Kidney Failure Greater than or equal to 60 October 13, 2016 6:05am Result Comments: If the patient is of -[place] descent/extraction multiply the eGFR value by 1.212 to obtain the actual eGFR. >=60 mg/dL Normal 30-59 mg/dL Moderate Kidney Disease 15-29 mg/dL Severe Kidney Disease <15 mg/dL Kidney Failure Greater than or equal to 60 October 14, 2016 8:16am Result Comments: If the patient is of -[place] descent/extraction multiply the eGFR value by 1.212 to obtain the actual eGFR. >=60 mg/dL Normal 30-59 mg/dL Moderate Kidney Disease 15-29 mg/dL Severe Kidney Disease <15 mg/dL Kidney Failure Greater than or equal to 60 October 15, 2016 7:57am Result Comments: If the patient is of -[place] descent/extraction multiply the eGFR value by 1.212 to obtain the actual eGFR. >=60 mg/dL Normal 30-59 mg/dL Moderate Kidney Disease 15-29 mg/dL Severe Kidney Disease <15 mg/dL Kidney Failure Greater than or equal to 60 October 16, 2016 9:25am Result Comments: If the patient is of -[place] descent/extraction multiply the eGFR value by 1.212 to obtain the actual eGFR. >=60 mg/dL Normal 30-59 mg/dL Moderate Kidney Disease 15-29 mg/dL Severe Kidney Disease <15 mg/dL Kidney Failure Greater than or equal to 60 October 17, 2016 5:52am Result Comments: If the patient is of -[place] descent/extraction multiply the eGFR value by 1.212 to obtain the actual eGFR. >=60 mg/dL Normal 30-59 mg/dL Moderate Kidney Disease 15-29 mg/dL Severe Kidney Disease <15 mg/dL Kidney Failure Greater than or equal to 60 October 18, 2016 6:04am Result Comments: If the patient is of -[place] descent/extraction multiply the eGFR value by 1.212 to obtain the actual eGFR. >=60 mg/dL Normal 30-59 mg/dL Moderate Kidney Disease 15-29 mg/dL Severe Kidney Disease <15 mg/dL Kidney Failure Greater than or equal to 60 October 19, 2016 5:10am Result Comments: If the patient is of -[place] descent/extraction multiply the eGFR value by 1.212 to obtain the actual eGFR. >=60 mg/dL Normal 30-59 mg/dL Moderate Kidney Disease 15-29 mg/dL Severe Kidney Disease <15 mg/dL Kidney Failure Greater than or equal to 60 October 20, 2016 5:45am Result Comments: If the patient is of -[place] descent/extraction multiply the eGFR value by 1.212 to obtain the actual eGFR. >=60 mg/dL Normal 30-59 mg/dL Moderate Kidney Disease 15-29 mg/dL Severe Kidney Disease <15 mg/dL Kidney Failure BUN CREATININE RATIO(10.0-20.0 RATIO) 19.0 RATIO October 11, 2016 7:16am 24.0 RATIO October 12, 2016 6:58am 33.0 RATIO October 13, 2016 6:05am 34.0 RATIO October 14, 2016 8:16am 40.0 RATIO October 15, 2016 7:57am 37.0 RATIO October 16, 2016 9:25am 47.0 RATIO October 17, 2016 5:52am 47.0 RATIO October 18, 2016 6:04am 45.0 RATIO October 19, 2016 5:10am 38.0 RATIO October 20, 2016 5:45am SODIUM(135-145 MMOL/L) 136 MMOL/L October 11, 2016 7:16am 133 MMOL/L October 12, 2016 6:58am 137 MMOL/L October 13, 2016 6:05am 134 MMOL/L October 14, 2016 8:16am 132 MMOL/L October 15, 2016 7:57am 131 MMOL/L October 16, 2016 9:25am 131 MMOL/L October 17, 2016 5:52am 132 MMOL/L October 18, 2016 6:04am 134 MMOL/L October 19, 2016 5:10am 135 MMOL/L October 20, 2016 5:45am POTASSIUM(3.6-5.0 MMOL/L) 3.9 MMOL/L October 11, 2016 7:16am 2.9 MMOL/L October 12, 2016 6:58am 2.9 MMOL/L October 13, 2016 6:05am 2.8 MMOL/L October 14, 2016 8:16am 3.0 MMOL/L October 15, 2016 7:57am 3.1 MMOL/L October 16, 2016 9:25am 3.1 MMOL/L October 17, 2016 5:52am 3.7 MMOL/L October 18, 2016 6:04am 3.2 MMOL/L October 19, 2016 5:10am 4.2 MMOL/L October 20, 2016 5:45am CHLORIDE(101-111 MMOL/L) 91 MMOL/L October 11, 2016 7:16am 83 MMOL/L October 12, 2016 6:58am 86 MMOL/L October 13, 2016 6:05am 81 MMOL/L October 14, 2016 8:16am 78 MMOL/L October 15, 2016 7:57am 80 MMOL/L October 16, 2016 9:25am 83 MMOL/L October 17, 2016 5:52am 87 MMOL/L October 18, 2016 6:04am 87 MMOL/L October 19, 2016 5:10am 90 MMOL/L October 20, 2016 5:45am CO2(21-31 MMOL/L) 34 MMOL/L October 11, 2016 7:16am 37 MMOL/L October 12, 2016 6:58am 41 MMOL/L October 13, 2016 6:05am 41 MMOL/L October 14, 2016 8:16am 42 MMOL/L October 15, 2016 7:57am 41 MMOL/L October 16, 2016 9:25am 38 MMOL/L October 17, 2016 5:52am 36 MMOL/L October 18, 2016 6:04am 38 MMOL/L October 19, 2016 5:10am 36 MMOL/L October 20, 2016 5:45am ANION GAP(8-18) October 11, 2016 7:16am 16 October 12, 2016 6:58am 13 October 13, 2016 6:05am 15 October 14, 2016 8:16am 15 October 15, 2016 7:57am 13 October 16, 2016 9:25am 13 October 17, 2016 5:52am 13 October 18, 2016 6:04am 12 October 19, 2016 5:10am 13 October 20, 2016 5:45am OSMO CALCULATED(270.0-290.0) 273.5 October 11, 2016 7:16am 272.9 October 12, 2016 6:58am 279.4 October 13, 2016 6:05am 278.0 October 14, 2016 8:16am 273.8 October 15, 2016 7:57am 274.8 October 16, 2016 9:25am 271.7 October 17, 2016 5:52am 273.3 October 18, 2016 6:04am 276.3 October 19, 2016 5:10am 275.5 October 20, 2016 5:45am CALCIUM(8.5-10.5 MG/DL) 8.2 MG/DL October 11, 2016 7:16am 8.7 MG/DL October 12, 2016 6:58am 8.6 MG/DL October 13, 2016 6:05am 9.1 MG/DL October 14, 2016 8:16am 9.0 MG/DL October 15, 2016 7:57am 8.9 MG/DL October 16, 2016 9:25am 8.8 MG/DL October 17, 2016 5:52am 8.6 MG/DL October 18, 2016 6:04am 8.8 MG/DL October 19, 2016 5:10am 8.8 MG/DL October 20, 2016 5:45am POTASSIUM POTASSIUM(3.6-5.0 MMOL/L) 3.1 MMOL/L October 12, 2016 11:52am 3.4 MMOL/L October 12, 2016 6:19pm 3.8 MMOL/L October 13, 2016 6:59pm 3.5 MMOL/L October 14, 2016 7:01pm 3.7 MMOL/L October 15, 2016 2:13pm 4.0 MMOL/L October 16, 2016 8:58pm 3.9 MMOL/L October 17, 2016 12:17pm 4.6 MMOL/L October 19, 2016 7:20pm TOBRAMYCIN,RANDOM TOBRAMYCIN,RANDOM(UG/ML) 4.2 UG/ML October 11, 2016 7:16am 4.3 UG/ML October 12, 2016 6:58am Microbiology Results Visit/Account #[id number] (October 10, 2016 10:04am - October 20, 2016 11: 50am) Procedure Result URINE CULTURE URINE CULTURE Result Instance On October 10, 2016 1:00pm Source: URINE Organism: PSEUDOMONAS AERUGINOSA COLONY COUNT >100,000 Result Instance On October 11, 2016 11:27am Source: URINE Organism: MIXED UROGENITAL ORGANISMS COLONY COUNT 30,000 - 40,000 SPUTUM CULTURE SPUTUM CULTURE Result Instance On October 11, 2016 8:30am Source: SPUTUM Organism: ROUTINE RESPIRATORY MALCOLM COLONY COUNT SMALL AMOUNT ROUTINE OTHER CULTURE ROUTINE OTHER CULTURE Result Instance On October 17, 2016 8:05am Source: LEG Organism: PSEUDOMONAS AERUGINOSA COLONY COUNT SMALL AMOUNT ANAEROBIC CULTURE ANAEROBIC CULTURE Result Instance On October 17, 2016 8:05am Source: LEG Special Result Comments: No growth BLOOD CULTURE BLOOD CULTURE Result Instance On October 10, 2016 10:28am Source: BLOOD Result Comments: GRAM POSITIVE COCCI RESEMBLING STAPHLYOCOCCUS WERE OBSERVED ON THE GRAM STAIN OF THE AEROBIC BOTTLE. RESULTS CALLED TO AND READ BACK BY MAXINE ON 10/11/16 AT 1142. MS BARCODE#[id number]. STAPHYLOCOCCUS EPIDERMIDIS detected by Verigene Nucleic Acid Test. Verigene results do not rule out the possiblility of infection with other organisms. Detection of antimicrobial resistance markers does not indicate resistance, as resistance may occur by other mechanisms. Results of nucleic acid testing are preliminary and will be verified by culture and suceptiblilty testing. The DoubleMapigene BC-GP assay tests for S. aureus, S. lugdunensis, S. agalactiae, S. pneumoniae, E. faecalis, S. pyogenes, S. anginosus group, E. facium, Staphylococcus, Streptococcus and Listeria. Resistance markers tested include: mecA, Divya and vanB. Organism: STAPHYLOCOCCUS EPIDERMIDIS BLOOD CULTURE BOTTLE ISOLATED FROM AEROBIC BOTTLE mecA DETECTED Divya NOT APPLICABLE vanB NOT APPLICABLE Result Instance On October 10, 2016 12:30pm Source: BLOOD Special Result Comments: No growth Result Instance On October 12, 2016 12:42pm Source: BLOOD Special Result Comments: No growth Result Instance On October 12, 2016 12:49pm Source: BLOOD Special Result Comments: No growth SPUTUM GRAM STAIN SPUTUM GRAM STAIN Result Instance On October 11, 2016 8:30am Source: SPUTUM Result Prompts: SPUTUM GRADE GRADE 6 (ADEQUATE): <25 WBC/LPF; <10 EPITHELIAL CELLS/LPF WBC/OIF 0-5 BACTERIA SEEN NO ORGANISM SEEN ROUTINE GRAM STAIN ROUTINE GRAM STAIN Result Instance On October 17, 2016 8:05am Source: LEG Result Prompts: WBC/OIF NO WBCS SEEN BACTERIA SEEN NO ORGANISM SEEN [facility] Results Visit/Account #[id number] (October 10, 2016 10:04am - October 20, 2016 11: 50am) Test Result ABO/RH O POSITIVE on October 16, 2016 9:17am BLOOD TYPE ANTIBODY SCREEN NEGATIVE on October 16, 2016 9:17am ANTIBODY SCREEN Allergies and Adverse Reactions Allergies and Adverse Reactions Patient Unit Number: [id number] Agent Type Reaction Severity Status IODINATED CONTRAST- ORAL AND IV DYE Drug Allergy throat started to close Severe Active PENICILLINS Drug Allergy SHORTNESS OF BREATH Unknown Active ACETAMINOPHEN Drug Adverse Reaction liver failure Unknown Active METHOTREXATE Drug Adverse Reaction SKIN CANCERS Severe Active CEPHALEXIN Drug Allergy SHORTNESS OF BREATH Unknown Active TOBRAMYCIN Drug Allergy SWELLING Mild Active CLAVULANIC ACID Drug Allergy swelling Unknown Active SULFASALAZINE Drug Allergy caused A-Fib Moderate Active CIPROFLOXACIN Drug Allergy shortness of breath, joints ache Unknown Active INFLUENZA VIRUS VACCINE, SPECIFIC Drug Allergy sick for 3 months Moderate Active FAMOTIDINE Drug Allergy joint pain Unknown Active AMOXICILLIN Drug Allergy swelling Mild Active VANCOMYCIN Drug Allergy rash Moderate Active HYDROXYCHLOROQUINE Drug Allergy sores on legs, feet and mouth Severe Active SILVER Drug Allergy breaks out Moderate Active DRONEDARONE Drug Allergy Unknown Unknown Active alginate (ex. Melgisorb) Adverse Reaction feels like it's on fire Mild Active collagen fibrocol Adverse Reaction juan Mild Active Problem List Problem List Visit/Account #[id number] (October 10, 2016 10:04am - October 20, 2016 11: 50am) Active Problems: Code/Condition Comments Documented Start Date Documented Resolved Code(s) Date J18.9 PNEUMONIA, UNSPECIFIED ORGANISM October 20, 2016 T83.511A I/I REACT D/T INDWELLING URETHRAL CATHETER, INIT October 20, 2016 L03.116 CELLULITIS OF LEFT LOWER LIMB October 20, 2016 I48.2 CHRONIC ATRIAL FIBRILLATION October 20, 2016 G62.9 POLYNEUROPATHY, UNSPECIFIED October 20, 2016 L97.211 NON-PRS CHRONIC ULCER OF RIGHT CALF LIMITED TO BRKDWN SKIN October 20, 2016 Z68.42 BODY MASS INDEX (BMI) 45.0-49.9, ADULT October 20, 2016 L97.822 NON-PRS CHRONIC ULCER OTH PRT L LOW LEG W FAT LAYER EXPOSED October 20, 2016 E66.01 MORBID (SEVERE) OBESITY DUE TO EXCESS CALORIES October 20, 2016 B96.5 PSEUDOMONAS (MALLEI) CAUSING DISEASES CLASSD ELSWHR October 20, 2016 M06.9 RHEUMATOID ARTHRITIS, UNSPECIFIED October 20, 2016 M86.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, RIGHT TIBIA AND FIBULA October 20, 2016 E87.6 HYPOKALEMIA October 20, 2016 Y95 NOSOCOMIAL CONDITION October 20, 2016 W05.0XXA FALL FROM NON-MOVING WHEELCHAIR, INITIAL ENCOUNTER October 20, 2016 I51.7 CARDIOMEGALY October 20, 2016 I71.4 ABDOMINAL AORTIC ANEURYSM, WITHOUT RUPTURE October 20, 2016 I25.10 ATHSCL HEART DISEASE OF [place] CORONARY ARTERY W/O ANG PCTRS October 20, 2016 I87.2 VENOUS INSUFFICIENCY (CHRONIC) (PERIPHERAL) October 20, 2016 I89.0 LYMPHEDEMA, NOT ELSEWHERE CLASSIFIED October 20, 2016 Z16.19 RESISTANCE TO OTHER SPECIFIED BETA LACTAM ANTIBIOTICS October 20, 2016 Z16.23 RESISTANCE TO QUINOLONES AND FLUOROQUINOLONES October 20, 2016 L89.322 PRESSURE ULCER OF LEFT BUTTOCK, STAGE 2 October 20, 2016 M16.11 UNILATERAL PRIMARY OSTEOARTHRITIS, RIGHT HIP October 20, 2016 E78.00 PURE HYPERCHOLESTEROLEMIA, UNSPECIFIED October 20, 2016 G47.33 OBSTRUCTIVE SLEEP APNEA (ADULT) (PEDIATRIC) October 20, 2016 M17.11 UNILATERAL PRIMARY OSTEOARTHRITIS, RIGHT KNEE October 20, 2016 N40.1 BENIGN PROSTATIC HYPERPLASIA WITH LOWER URINARY TRACT SYMP October R35.0 FREQUENCY OF MICTURITION October 20, 2016 R39.15 URGENCY OF URINATION October 20, 2016 Y84.6 URINARY CATHETERIZATION CAUSE ABN REACT/COMPL, W/O MISADVNT October 20, 2016 Y92.122 BEDROOM IN [facility] October 20, 2016 R06.02 SHORTNESS OF BREATH October 20, 2016 L03.115 CELLULITIS OF RIGHT LOWER LIMB October 20, 2016 R23.2 FLUSHING October 20, 2016 R47.89 OTHER SPEECH DISTURBANCES October 20, 2016 T36.5X5A ADVERSE EFFECT OF AMINOGLYCOSIDES, INITIAL ENCOUNTER October 20, 2016 S30.813A ABRASION OF SCROTUM AND TESTES, INITIAL ENCOUNTER October 20, 2016 W23.0XXA CAUGHT, CRUSH, JAMMED, OR PINCHED BETW MOVING OBJECTS, INIT October 20, 2016 Y93.F9 ACTIVITY, OTHER CAREGIVING October 20, 2016 Y92.230 PATIENT ROOM IN HOSPITAL PLACE October 20, 2016 Z79.01 JAIL (CURRENT) USE OF ANTICOAGULANTS October 20, 2016 Z79.52 JAIL (CURRENT) USE OF SYSTEMIC STEROIDS October 20, 2016 Z87.01 PERSONAL HISTORY OF PNEUMONIA (RECURRENT) October 20, 2016 L89.151 PRESSURE ULCER OF SACRAL REGION, STAGE 1 October 20, 2016 Z85.828 PERSONAL HISTORY OF OTHER MALIGNANT NEOPLASM OF SKIN October 20, 2016 Z87.891 PERSONAL HISTORY OF NICOTINE DEPENDENCE October 20, 2016 Z96.89 PRESENCE OF OTHER SPECIFIED FUNCTIONAL IMPLANTS October 20, 2016 Z91.041 RADIOGRAPHIC DYE ALLERGY STATUS October 20, 2016 Z88.0 ALLERGY STATUS TO PENICILLIN October 20, 2016 Z88.2 ALLERGY STATUS TO SULFONAMIDES STATUS October 20, 2016 Z88.1 ALLERGY STATUS TO OTHER ANTIBIOTIC AGENTS STATUS October 20, 2016 Z88.6 ALLERGY STATUS TO ANALGESIC AGENT STATUS October 20, 2016 Z88.8 ALLERGY STATUS TO OTH DRUG/MEDS/BIOL SUBST STATUS October 20, 2016 Z91.048 OTHER NONMEDICINAL SUBSTANCE ALLERGY STATUS October 20, 2016 L89.131 PRESSURE ULCER OF RIGHT LOWER BACK, STAGE 1 October 20, 2016 E44.1 MILD PROTEIN-CALORIE MALNUTRITION October 20, 2016 E87.1 HYPO-OSMOLALITY AND HYPONATREMIA October 20, 2016 N39.0 URINARY TRACT INFECTION, SITE NOT SPECIFIED October 20, 2016 Vital Signs Vital Signs No Vital Signs Data. Functional Status Functional and Cognitive Status No Functional Status Data Medications Home Medications - Medications that the patient was taking prior to arrival at the hospital Visit/Account #[id number] (October 10, 2016 10:04am - October 20, 2016 11: 50am) Medication Route Sig/Schedule Precondition/Indication Comments/ Instructions Codes MILK OF MAGNESIA(MAGNESIUM HYDROXIDE) 400 MG/5 ML ORAL.SUSP ORAL DAILY CONSTIPATION MILK OF MAGNESIA (MAGNESIUM HYDROXIDE) NDC: [id number] Dose: 30 ML CALMAG THINS TABLET(CALCIUM CARB &CIT/MAGNESIUM OX) 1 EACH TABLET ORAL DAILYL CALMAG THINS TABLET (CALCIUM CARB &CIT/MAGNESIUM OX) NDC: 16650756501 Dose: 1 TAB VITAMIN B COMPLEX(VITAMIN B COMPLEX) 1 EACH TABLET ORAL DAILY VITAMIN B COMPLEX (VITAMIN B COMPLEX) NDC: 65531765013 Dose: 1 TAB ASCORBIC ACID(ASCORBIC ACID) 500 MG TABLET ORAL DAILY ASCORBIC ACID ( ASCORBIC ACID) NDC: 66856845028 Dose: 500 MG Vitamin D3(CHOLECALCIFEROL (VITAMIN D3)) 5000 UNIT TABLET ORAL DAILYL Vitamin D3 (CHOLECALCIFEROL (VITAMIN D3)) NDC: 49262419792 Dose: 5000 UNIT Coq-10(UBIDECARENONE/OMEGA-3/VIT E) 200 MG CAPSULE ORAL DAILY Coq-10 ( UBIDECARENONE/OMEGA-3/VIT E) NDC: 50270994255 Dose: 200 MG PROBIOTIC(LACTOBACILLUS ACIDOPHILUS) 1 EACH CAPSULE ORAL BIDWM PROBIOTIC (LACTOBACILLUS ACIDOPHILUS) NDC: 95942617532 Dose: 1 CAP LASIX(FUROSEMIDE) 20 MG TABLET ORAL BID LASIX (FUROSEMIDE) NDC: 29111519611 Dose: 40 MG LEXAPRO(ESCITALOPRAM OXALATE) 10 MG TABLET ORAL DAILY LEXAPRO ( ESCITALOPRAM OXALATE) NDC: 58998715442 Dose: 10 MG DELTASONE(PredniSONE) 10 MG TAB ORAL DAILY DELTASONE (PredniSONE) NDC: 51057564056 Dose: 10 MG COUMADIN(WARFARIN SODIUM) 1 MG TAB ORAL DAILY@18 COUMADIN (WARFARIN SODIUM) NDC: 60885997196 Dose: 1 MG COUMADIN(WARFARIN SODIUM) 2 MG TAB ORAL DAILY@1800 COUMADIN (WARFARIN SODIUM) NDC: 35758048753 Dose: 2 MG LIDOCAINE HCL 4% ORAL SOLN(LIDOCAINE HCL) 40 MG/1 ML SOLUTION TOPICALLY TID LIDOCAINE HCL 4% ORAL SOLN (LIDOCAINE HCL) NDC: 99758661909 Dose: 0 ML Neurontin(GABAPENTIN) 300 MG CAP ORAL BID Neurontin (GABAPENTIN) NDC: 95139265444 Dose: 600 MG Mag-Ox 400(MAGNESIUM OXIDE) 400 MG TAB ORAL BIDWM Mag-Ox 400 (MAGNESIUM OXIDE) NDC: 77549511067 Dose: 400 MG LOPRESSOR(METOPROLOL TARTRATE) 25 MG TAB ORAL BID LOPRESSOR (METOPROLOL TARTRATE) NDC: 03030096291 Dose: 25 MG OXYCODONE HCL(OxyCODONE) 5 MG TAB ORAL Q3H pain OXYCODONE HCL (OxyCODONE ) NDC: 51206385698 Dose: 5-15 MG Gas-X(SIMETHICONE) 80 MG TAB ORAL PRN GAS Gas-X (SIMETHICONE) NDC: 07533680847 Dose: 80 MG Deltasone(PredniSONE) 1 MG TAB ORAL 1800 Deltasone (PredniSONE) NDC: 50653910666 Dose: 4 MG Klor-Con M20(POTASSIUM CHLORIDE) 20 MEQ TAB.ER.PRT ORAL BIDWM Klor-Con M20 (POTASSIUM CHLORIDE) NDC: 99189540883 Dose: 20 MEQ OMNICEF(CEFDINIR) 300 MG CAP ORAL BID Rx Instructions: OMNICEF (CEFDINIR ) NDC: 67043620512 Dose: 300 MG Take for 10 days, then STOP COLACE(DOCUSATE SODIUM) 100 MG CAPSULE ORAL BID CONSTIPATION COLACE ( DOCUSATE SODIUM) NDC: 52486610628 Dose: 100 MG MIRALAX(POLYETHYLENE GLYCOL 3350) 17 GM POWD.PACK ORAL DAILY CONSTIPATION MIRALAX (POLYETHYLENE GLYCOL 3350) NDC: 10074698277 Dose: 17 GM LASIX(FUROSEMIDE) 80 MG TABLET ORAL BID LASIX (FUROSEMIDE) NDC: 39362331486 Dose: 80 MG ALDACTONE(SPIRONOLACTONE) 50 MG TABLET ORAL DAILY ALDACTONE ( SPIRONOLACTONE) NDC: 97267977226 Dose: 50 MG OMNICEF(CEFDINIR) 300 MG CAP ORAL BID Rx Instructions: OMNICEF (CEFDINIR ) NDC: 32311939675 Dose: 300 MG STARTED 10/03/16 x10 DAYS MIRALAX(POLYETHYLENE GLYCOL 3350) 17 GM POWD.PACK ORAL DAILY CONSTIPATION MIRALAX (POLYETHYLENE GLYCOL 3350) NDC: 58997036947 Dose: 17 GM OXYCODONE HCL(OxyCODONE) 5 MG TABLET ORAL Q3S PAIN OXYCODONE HCL ( OxyCODONE) NDC: 54003430990 Dose: 5-15 MG COUMADIN(WARFARIN SODIUM) 1 MG TAB ORAL DAILY Rx Instructions: COUMADIN ( WARFARIN SODIUM) NDC: 81067234559 Dose: 1 MG TAKE WITH 2 MG TAB COUMADIN(WARFARIN SODIUM) 2 MG TAB ORAL DAILY Rx Instructions: COUMADIN ( WARFARIN SODIUM) NDC: 67147607054 Dose: 2 MG TAKE WITH 1 MG TAB GAS RELIEF(SIMETHICONE) 80 MG TAB.CHEW ORAL PRN PRN GAS RELIEF ( SIMETHICONE) NDC: 44994288672 Dose: 80 MG LIDOCAINE HCL 4% ORAL SOLN(LIDOCAINE HCL) 40 MG/1 ML SOLUTION TOPICAL TID Rx Instructions: LIDOCAINE HCL 4% ORAL SOLN (LIDOCAINE HCL) NDC: 10788919867 Dose: 1 APPL APPLY TO WOUND COLACE(DOCUSATE SODIUM) 100 MG CAPSULE ORAL BID COLACE (DOCUSATE SODIUM ) NDC: 01540239324 Dose: 100 MG Mag-Ox 400(MAGNESIUM OXIDE) 400 MG TAB ORAL BIDWM Mag-Ox 400 (MAGNESIUM OXIDE) NDC: 49251161142 Dose: 400 MG LOPRESSOR(METOPROLOL TARTRATE) 25 MG TABLET ORAL BID LOPRESSOR ( METOPROLOL TARTRATE) NDC: 26429135740 Dose: 25 MG LASIX(FUROSEMIDE) 80 MG TABLET ORAL BID Rx Instructions: LASIX ( FUROSEMIDE) NDC: 30704353502 Dose: 80 MG STARTED 10/06/16 x5 DAYS ALDACTONE(SPIRONOLACTONE) 50 MG TABLET ORAL DAILY Rx Instructions: ALDACTONE (SPIRONOLACTONE) NDC: 58385990073 Dose: 50 MG STARTED 10/06/16 x5 DAYS NEURONTIN(GABAPENTIN) 300 MG CAPSULE ORAL BID NEURONTIN (GABAPENTIN) NDC : 42923477855 Dose: 300 MG DELTASONE(PredniSONE) 5 MG TAB ORAL DAILYS DELTASONE (PredniSONE) NDC: 42901791066 Dose: 5 MG POTASSIUM CHLORIDE(POTASSIUM CHLORIDE) 20 MEQ PACKET ORAL BID POTASSIUM CHLORIDE (POTASSIUM CHLORIDE) NDC: 73868802266 Dose: 20 MEQ MUCINEX(GuaiFENesin) 600 MG TAB.ER.12H ORAL BID MUCINEX (GuaiFENesin) NDC: 09390079743 Dose: 1200 MG UROCIT-K(POTASSIUM CITRATE) 10 MEQ TAB ORAL DAILYB Rx Instructions: UROCIT-K (POTASSIUM CITRATE) NDC: 52238391926 Dose: 10 MEQ STARTED 10/10/16 x3 DAYS ZAROXOLYN(MetOLazone) 5 MG TABLET ORAL DAILY Rx Instructions: ZAROXOLYN ( MetOLazone) NDC: 71350343740 Dose: 5 MG STARTED 10/10/16 x3 DAYS Inpatient/Ordered Medications - Medications administered during hospital visit Visit/Account #[id number] (October 10, 2016 10:04am - October 20, 2016 11: 50am) Medication Route Sig/Schedule Precondition/Indication Comments/ Instructions Codes IV Medication INTRAVEN NOW (Rate: 250 MLS/HR Duration: 1 HR) Additives: Additives: ZITHROMAX INJ (AZITHROMYCIN) NDC: 30285016974 ZITHROMAX INJ(AZITHROMYCIN) 500 MG INJECTION Carriers: Dose: 500 MG (SODIUM CHLORIDE) NDC: 48939807100 Carriers: SODIUM CHLORIDE 250 ML INJECTION Dose: 250 ML IV Medication INTRAVEN NOW (Rate: 100 MLS/HR Duration: 30 MIN) Additives : Additives: MERREM INJ (MEROPENEM) NDC: 93471466562 MERREM INJ(MEROPENEM) 1 GM INJECTION Carriers: Dose: 1 GM NORMAL SALINE (SODIUM CHLORIDE) NDC: 47556517626 Carriers: NORMAL SALINE(SODIUM CHLORIDE) 50 ML INJECTION Dose: 50 ML IV Medication INTRAVEN CHARLI (Rate: 166.667 MLS/HR Duration: 3 HR) Clinical Indication: ABX for suspected infection Label Comments: Additives: 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 Additives: REFRIGERATE VANCOCIN (VANCOMYCIN HCL) NDC: 31169670964 Expires 24 HRS after preparation VANCOCIN(VANCOMYCIN HCL) 1000 MG INJECTION Carriers: Dose: 2000 MG (SODIUM CHLORIDE) NDC: 43353018527 Carriers: SODIUM CHLORIDE 500 ML INJECTION Dose: 500 ML BENADRYL INJ(DiphenhydrAMINE HCL) 50 MG/ML INJECTION INTRAVEN NOW Label Comments: BENADRYL INJ (DiphenhydrAMINE HCL) NDC: 70810866079 Dose: 0.5 ML PRE-MEDICATION FOR VANCOMYCIN INFUSION REACTION MAY INCREASE FALL RISK ROXICODONE(OxyCODONE HCL) 5 MG TAB ORAL Q4H pain Label Comments: ROXICODONE (OxyCODONE HCL) NDC: 62345620890 Dose: 5 MG OXYCODONE IMMED RELEASE MAY INCREASE FALL RISK POLYSPORIN OINT(BACITRACIN/POLYMYXIN) 15 GM OINTMENT TOPICALLY DAILY Special Dose Instructions: POLYSPORIN OINT (BACITRACIN/POLYMYXIN) NDC: 26543964123 Dose: 0 GM 1 APPLICATION TO AFFECTED AREA(S) COLACE(DOCUSATE SODIUM) 100 MG CAP ORAL BID COLACE (DOCUSATE SODIUM) NDC : 35237884346 Dose: 100 MG MILK OF MAGNESIA 400 MG/5 ML(MAGNESIUM HYDROXIDE) 30 ML SUSPENSION ORAL DAILY PRN Reason: CONSTIPATION Label Comments: MILK OF MAGNESIA 400 MG/5 ML ( MAGNESIUM HYDROXIDE) NDC: 93609735571 Dose: 30 ML shake well VITAMIN C(ASCORBIC ACID) 500 MG TAB ORAL DAILY VITAMIN C (ASCORBIC ACID ) NDC: 20079427009 Dose: 500 MG LEXAPRO(ESCITALOPRAM OXALATE) 10 MG TAB ORAL DAILY Label Comments: LEXAPRO (ESCITALOPRAM OXALATE) NDC: 49973867110 Dose: 10 MG MAY INCREASE FALL RISK LASIX(FUROSEMIDE) 80 MG TAB ORAL BID Label Comments: LASIX (FUROSEMIDE) NDC: 67515456688 Dose: 80 MG MAY INCREASE FALL RISK NEURONTIN(GABAPENTIN) 300 MG CAP ORAL BID Label Comments: NEURONTIN ( GABAPENTIN) NDC: 53941060347 Dose: 300 MG MAY INCREASE FALL RISK MUCINEX(GuaiFENesin) 600 MG TAB ORAL BID MUCINEX (GuaiFENesin) NDC: 97387925702 Dose: 1200 MG ZAROXOLYN(MetOLazone) 5 MG TAB ORAL DAILY Label Comments: ZAROXOLYN ( MetOLazone) NDC: 07757383240 Dose: 5 MG MAY INCREASE FALL RISK LOPRESSOR(METOPROLOL TARTRATE) 25 MG TAB ORAL BID Label Comments: LOPRESSOR (METOPROLOL TARTRATE) NDC: 82506170849 Dose: 25 MG MAY INCREASE FALL RISK K-VETO PWD PKT(POTASSIUM CHLORIDE) 20 MEQ PACKET ORAL BIDWM Label Comments : K-VETO PWD PKT (POTASSIUM CHLORIDE) NDC: 94855580057 Dose: 20 MEQ DISSOLVE IN 4 OZ WATER OR JUICE. DRINK SLOWLY OVER 5-10 MIN UROCIT-K(POTASSIUM CITRATE) 10 MEQ TAB ORAL DAILYB Label Comments: UROCIT -K (POTASSIUM CITRATE) NDC: 00541877667 Dose: 10 MEQ SWALLOW WHOLE DELTASONE(PredniSONE) 5 MG TAB ORAL DAILYS Label Comments: DELTASONE ( PredniSONE) NDC: 75656896879 Dose: 5 MG TAKE WITH FOOD OR MILK DELTASONE(PredniSONE) 10 MG TAB ORAL DAILY Rx Order Comments: DELTASONE ( PredniSONE) NDC: 23833823843 Dose: 10 MG Order filed UNV: Allergies/Duplicates/Interactions differ from us customs and border officer Label Comments: TAKE WITH FOOD OR MILK GAS-X(SIMETHICONE) 80 MG TAB ORAL PRN PRN GAS-X (SIMETHICONE) NDC: 27549356620 Dose: 80 MG ALDACTONE(SPIRONOLACTONE) 50 MG TAB ORAL DAILY Label Comments: ALDACTONE (SPIRONOLACTONE) NDC: 46819568160 Dose: 50 MG MAY INCREASE FALL RISK. TERATOGENIC. WOMEN SHOULD NOT HANDLE OR CRUSH. VITAMIN B12 + COMPLEX(VITAMIN B COMPLEX) 1 TAB TAB ORAL DAILY VITAMIN B12 + COMPLEX (VITAMIN B COMPLEX) NDC: 03091160982 Dose: 1 TAB VITAMIN D(CHOLECALCIFEROL) 1000 UNIT TAB ORAL DAILY VITAMIN D ( CHOLECALCIFEROL) NDC: 48084046980 Dose: 5000 UNIT CULTURELLE(LACTOBACILLUS RHAMNOSUS) 1 CAP CAP ORAL DAILY CULTURELLE ( LACTOBACILLUS RHAMNOSUS) NDC: 17385970911 Dose: 1 CAP COUMADIN(WARFARIN SOD) 3 MG TAB ORAL DAILY@18 COUMADIN (WARFARIN SOD) NDC: 24901391464 Dose: 3 MG IV Medication INTRAVEN Q8S (Rate: 100 MLS/HR Duration: 30 MIN) Clinical Indication: ABX for known infection Rx Order Comments: Additives: Order filed UNV: Additives: Dose Warnings differ from us customs and border officer MERREM INJ (MEROPENEM ) NDC: 26599779578 MERREM INJ(MEROPENEM) 1 GM INJECTION Label Comments: Carriers: Dose: 1 GM REFRIGERATE IMMEDIATELY Expires in 24 hours @ (SODIUM CHLORIDE) NDC: 52712014146 Carriers: SODIUM CHLORIDE 50 ML INJECTION Dose: 50 ML XYLOCAINE 4% TOP SOLN(LIDOCAINE HCL) 50 ML SOLUTION TOPICALLY PRN PRN Reason : PAIN Label Comments: XYLOCAINE 4% TOP SOLN (LIDOCAINE HCL) NDC: 30434772233 Dose: 0 ML DILUTE TO 2% PRIOR TO APPLICATION WITH STERILE WATER Special Dose Instructions: DILUTE TO 2% SOLUTION WITH AN EQUAL AMOUNT OF STERILE WATER. IV Medication INTRAVEN CHARLI (Rate: 134 MLS/HR Duration: 30 MIN) Clinical Indication: ABX for suspected infection Label Comments: Additives: Additives: REFRIGERATE (TOBRAMYCIN) NDC: 05793590059 Expires 24 HRS after preparation TOBRAMYCIN 40 MG/ML INJECTION Carriers: Dose: 680 MG (DEXTROSE) NDC: 98958988196 Carriers: DEXTROSE 50 ML INJECTION Dose: 50 ML HEPARIN PF 5000 UNIT/0.5 ML SYRINGE SUBCUTANEOUSLY Q8S (HEPARIN PF) NDC : 67892684178 Dose: 0.5 ML IV Medication INTRAVEN CHARLI (Rate: 134 MLS/HR Duration: 30 MIN) Clinical Indication: ABX for suspected infection Label Comments: Additives: Additives: REFRIGERATE (TOBRAMYCIN) NDC: 48065366672 Expires 24 HRS after preparation TOBRAMYCIN 40 MG/ML INJECTION Carriers: Dose: 680 MG (DEXTROSE) NDC: 38237820737 Carriers: DEXTROSE 50 ML INJECTION Dose: 50 ML NEURONTIN(GABAPENTIN) 100 MG CAP ORAL TID Label Comments: NEURONTIN ( GABAPENTIN) NDC: 33326052772 Dose: 200 MG MAY INCREASE FALL RISK DAKIN'S 0.5% (FULL STRENGTH)(SODIUM HYPOCHLORITE) 480 ML SOLUTION TOPICALLY DAILY Label Comments: DAKIN'S 0.5% (FULL STRENGTH) (SODIUM HYPOCHLORITE) NDC : 58106837155 Dose: 0 ML FULL STRENGTH *FOR EXTERNAL USE ONLY* Special Dose Instructions: 1 APPLICATION TO WOUND ROXICODONE(OxyCODONE HCL) 5 MG TAB ORAL CHARLI Label Comments: ROXICODONE ( OxyCODONE HCL) NDC: 19342285433 Dose: 5 MG OXYCODONE IMMED RELEASE MAY INCREASE FALL RISK SANTYL(COLLAGENASE) 30 GM OINTMENT TOPICALLY DAILY Special Dose Instructions: SANTYL (COLLAGENASE) NDC: 49766766414 Dose: 0 GM 1 APPLICATION TO ROXICODONE(OxyCODONE HCL) 5 MG TAB ORAL NOW Label Comments: ROXICODONE ( OxyCODONE HCL) NDC: 42273412092 Dose: 5 MG OXYCODONE IMMED RELEASE MAY INCREASE FALL RISK DELTASONE(PredniSONE) 10 MG TAB ORAL DAILY@0600 Rx Order Comments: DELTASONE (PredniSONE) NDC: 62051924003 Dose: 10 MG Order filed UNV: Allergies/Duplicates/Interactions differ from us customs and border officer Label Comments: TAKE WITH FOOD OR MILK IV Medication INTRAVEN NOW (Rate: 130 MLS/HR Duration: 3 HR 56 MIN) Additives: Additives: KCL INJ (POTASSIUM CHLORIDE) NDC: [id number] KCL INJ(POTASSIUM CHLORIDE) 40 MEQ/20 ML INJECTION Carriers: Dose: 20 MEQ NORMAL SALINE (SODIUM CHLORIDE) NDC: [id number] Carriers: NORMAL SALINE(SODIUM CHLORIDE) 500 ML INJECTION Dose: 500 ML ROXICODONE(OxyCODONE HCL) 5 MG TAB ORAL Q4H pain or wound care Rx Order Comments: ROXICODONE (OxyCODONE HCL) NDC: [id number] Dose: 0 MG Order filed UNV: Allergies/Duplicates/Interactions differ from us customs and border officer Label Comments: OXYCODONE IMMED RELEASE MAY INCREASE FALL RISK Special Dose Instructions: 5-10 mg IV Medication INTRAVEN NOW (Rate: 130 MLS/HR Duration: 4 HR) Rx Order Comments: Additives: Order filed UNV: Additives: Allergies/Duplicates/Interactions differ from us customs and border officer KCL INJ (POTASSIUM CHLORIDE) NDC: [id number] KCL INJ(POTASSIUM CHLORIDE) 40 MEQ/20 ML INJECTION Carriers: Dose: 40 MEQ NORMAL SALINE (SODIUM CHLORIDE) NDC: [id number] Carriers: NORMAL SALINE(SODIUM CHLORIDE) 500 ML INJECTION Dose: 500 ML IV Medication INTRAVEN NOW (Rate: 130 MLS/HR Duration: 4 HR) Additives: Additives: KCL INJ (POTASSIUM CHLORIDE) NDC: [id number] KCL INJ(POTASSIUM CHLORIDE) 40 MEQ/20 ML INJECTION Carriers: Dose: 40 MEQ NORMAL SALINE (SODIUM CHLORIDE) NDC: [id number] Carriers: NORMAL SALINE(SODIUM CHLORIDE) 500 ML INJECTION Dose: 500 ML IV Medication INTRAVEN NOW (Rate: 130 MLS/HR Duration: 4 HR) Additives: Additives: KCL INJ (POTASSIUM CHLORIDE) NDC: [id number] KCL INJ(POTASSIUM CHLORIDE) 40 MEQ/20 ML INJECTION Carriers: Dose: 40 MEQ NORMAL SALINE (SODIUM CHLORIDE) NDC: [id number] Carriers: NORMAL SALINE(SODIUM CHLORIDE) 500 ML INJECTION Dose: 500 ML K-VETO PWD PKT(POTASSIUM CHLORIDE) 20 MEQ PACKET ORAL TIDWM Label Comments : K-VETO PWD PKT (POTASSIUM CHLORIDE) NDC: [id number] Dose: 20 MEQ DISSOLVE IN 4 OZ WATER OR JUICE. DRINK SLOWLY OVER 5-10 MIN COUMADIN(WARFARIN SOD) 2 MG TAB ORAL 1800 Label Comments: COUMADIN ( WARFARIN SOD) NDC: [id number] Dose: 2 MG TERATOGENIC. WOMEN SHOULD NOT HANDLE OR CRUSH. IV Medication INTRAVEN NOW (Rate: 130 MLS/HR Duration: 4 HR) Additives: Additives: KCL INJ (POTASSIUM CHLORIDE) NDC: [id number] KCL INJ(POTASSIUM CHLORIDE) 40 MEQ/20 ML INJECTION Carriers: Dose: 40 MEQ NORMAL SALINE (SODIUM CHLORIDE) NDC: [id number] Carriers: NORMAL SALINE(SODIUM CHLORIDE) 500 ML INJECTION Dose: 500 ML IV Medication INTRAVEN NOW (Rate: 130 MLS/HR Duration: 4 HR) Additives: Additives: KCL INJ (POTASSIUM CHLORIDE) NDC: [id number] KCL INJ(POTASSIUM CHLORIDE) 40 MEQ/20 ML INJECTION Carriers: Dose: 40 MEQ NORMAL SALINE (SODIUM CHLORIDE) NDC: 06909522325 Carriers: NORMAL SALINE(SODIUM CHLORIDE) 500 ML INJECTION Dose: 500 ML DULCOLAX(BISACODYL) 10 MG SUPPOSITORY RECTALLY NOW DULCOLAX (BISACODYL) NDC: 37348838627 Dose: 10 MG IV Medication INTRAVEN NOW (Rate: 130 MLS/HR Duration: 4 HR) Additives: Additives: KCL INJ (POTASSIUM CHLORIDE) NDC: 90184410668 KCL INJ(POTASSIUM CHLORIDE) 40 MEQ/20 ML INJECTION Carriers: Dose: 40 MEQ NORMAL SALINE (SODIUM CHLORIDE) NDC: 46910894807 Carriers: NORMAL SALINE(SODIUM CHLORIDE) 500 ML INJECTION Dose: 500 ML XYLOCAINE-MPF 1%(LIDOCAINE HCL/PF) 50 MG/5 ML INJECTION INTRADERM PRN PRN Reason: CATHETER INSERTION Rx Order Comments: XYLOCAINE-MPF 1% (LIDOCAINE HCL/ PF) NDC: 10771832381 Dose: 0 ML Order filed UNV: Allergies/Duplicates/Interactions differ from us customs and border officer Label Comments: For PICC line insertion if no allergy to Lidocaine and needed for pain control. Special Dose Instructions: 0.1 - 0.5 ML IV Medication INTRAVEN NOW (Rate: 130 MLS/HR Duration: 4 HR) Additives: Additives: KCL INJ (POTASSIUM CHLORIDE) NDC: 60920183002 KCL INJ(POTASSIUM CHLORIDE) 40 MEQ/20 ML INJECTION Carriers: Dose: 40 MEQ NORMAL SALINE (SODIUM CHLORIDE) NDC: 07502552556 Carriers: NORMAL SALINE(SODIUM CHLORIDE) 500 ML INJECTION Dose: 500 ML ZOFRAN INJ(ONDANSETRON HCL) 4 MG/2 ML INJECTION INTRAVEN .PSCU.CHARLI ZOFRAN INJ (ONDANSETRON HCL) NDC: 35490482411 Dose: 2 ML VERSED INJ(MIDAZOLAM HCL) 2 MG/2 ML INJECTION INTRAVEN .PSCU.CHARLI VERSED INJ (MIDAZOLAM HCL) NDC: 27238126111 Dose: 1 ML MORPHINE SULFATE 10 MG/ML INJECTION INTRAVEN PRN Special Dose Instructions : (MORPHINE SULFATE) NDC: 61665625133 Dose: 1 ML Give 2mg IV as needed every 10 minutes as needed prn up to 10 mg in PACU only SUBLIMAZE INJ(FentaNYL CITRATE) 100 MCG/2 ML INJECTION INTRAVEN .PACU.PRN Special Dose Instructions: SUBLIMAZE INJ (FentaNYL CITRATE) NDC: 41203686275 Dose: 0.5 ML Give 25mcg IV up to 100 mcg as needed before or between doses of other narcotics in PACU only TORADOL INJ(KETOROLAC TROMETHAMINE) 30 MG/ML INJECTION INTRAVEN CHARLI Label Comments: TORADOL INJ (KETOROLAC TROMETHAMINE) NDC: 32937601011 Dose: 1 ML DO NOT EXCEED 5 DAYS OF THERAPY Special Dose Instructions: TO BE GIVEN IN PACU ONLY ROXICODONE(OxyCODONE HCL) 5 MG TAB ORAL Q4H pain Rx Order Comments: ROXICODONE (OxyCODONE HCL) NDC: 06847764943 Dose: 0 MG Order filed UNV: Allergies/Duplicates/Interactions differ from us customs and border officer Label Comments: OXYCODONE IMMED RELEASE MAY INCREASE FALL RISK Special Dose Instructions: 5-15 mg MORPHINE SULFATE 4 MG/ML INJECTION INTRAVEN Q2H PRN Reason: SEVERE PAIN Label Comments: (MORPHINE SULFATE) NDC: 39185070026 Dose: 0 ML MAY INCREASE FALL RISK Special Dose Instructions: 1-2 MG IV Medication INTRAVEN NOW (Rate: 130 MLS/HR Duration: 4 HR) Additives: Additives: KCL INJ (POTASSIUM CHLORIDE) NDC: 60474995325 KCL INJ(POTASSIUM CHLORIDE) 40 MEQ/20 ML INJECTION Carriers: Dose: 40 MEQ NORMAL SALINE (SODIUM CHLORIDE) NDC: 01433719163 Carriers: NORMAL SALINE(SODIUM CHLORIDE) 500 ML INJECTION Dose: 500 ML COUMADIN(WARFARIN SOD) 3 MG TAB ORAL DAILY@18 COUMADIN (WARFARIN SOD) NDC: 87964322791 Dose: 3 MG LASIX(FUROSEMIDE) 40 MG TAB ORAL BID Label Comments: LASIX (FUROSEMIDE) NDC: 05892525566 Dose: 60 MG MAY INCREASE FALL RISK LASIX(FUROSEMIDE) 40 MG TAB ORAL BID Label Comments: LASIX (FUROSEMIDE) NDC: 33903921108 Dose: 80 MG MAY INCREASE FALL RISK IV Medication INTRAVEN NOW (Rate: 67.5 MLS/HR Duration: 4 HR) Additives: Additives: KCL INJ (POTASSIUM CHLORIDE) NDC: 25348080367 KCL INJ(POTASSIUM CHLORIDE) 40 MEQ/20 ML INJECTION Carriers: Dose: 40 MEQ NORMAL SALINE (SODIUM CHLORIDE) NDC: 84791116268 Carriers: NORMAL SALINE(SODIUM CHLORIDE) 250 ML INJECTION Dose: 250 ML MILK OF MAGNESIA 400 MG/5 ML(MAGNESIUM HYDROXIDE) 30 ML SUSPENSION ORAL BID Label Comments: MILK OF MAGNESIA 400 MG/5 ML (MAGNESIUM HYDROXIDE) NDC: 24236605333 Dose: 30 ML shake well COUMADIN(WARFARIN SOD) 2 MG TAB ORAL CHARLI Label Comments: COUMADIN ( WARFARIN SOD) NDC: 97732810084 Dose: 2 MG TERATOGENIC. WOMEN SHOULD NOT HANDLE OR CRUSH. Special Dose Instructions: To complete a total dose of 5 mg just today Discharge Medications - Medications that patient should continue to take. Review with physician Visit/Account #[id number] (October 10, 2016 10:04am - October 20, 2016 11: 50am) Medication Route Sig/Schedule Precondition/Indication Comments/ Instructions Codes MILK OF MAGNESIA(MAGNESIUM HYDROXIDE) 400 MG/5 ML ORAL.SUSP ORAL DAILY CONSTIPATION MILK OF MAGNESIA (MAGNESIUM HYDROXIDE) NDC: 75846033666 Dose: 30 ML CALMAG THINS TABLET(CALCIUM CARB &CIT/MAGNESIUM OX) 1 EACH TABLET ORAL DAILYL CALMAG THINS TABLET (CALCIUM CARB &CIT/MAGNESIUM OX) NDC: 07767510599 Dose: 1 TAB ASCORBIC ACID(ASCORBIC ACID) 500 MG TABLET ORAL DAILY ASCORBIC ACID ( ASCORBIC ACID) NDC: 79164621516 Dose: 500 MG Vitamin D3(CHOLECALCIFEROL (VITAMIN D3)) 5000 UNIT TABLET ORAL DAILYL Vitamin D3 (CHOLECALCIFEROL (VITAMIN D3)) NDC: 09510460278 Dose: 5000 UNIT Coq-10(UBIDECARENONE/OMEGA-3/VIT E) 200 MG CAPSULE ORAL DAILY Coq-10 ( UBIDECARENONE/OMEGA-3/VIT E) NDC: 57781760256 Dose: 200 MG PROBIOTIC(LACTOBACILLUS ACIDOPHILUS) 1 EACH CAPSULE ORAL BIDWM PROBIOTIC (LACTOBACILLUS ACIDOPHILUS) NDC: 34651466236 Dose: 1 CAP LEXAPRO(ESCITALOPRAM OXALATE) 10 MG TABLET ORAL DAILY LEXAPRO ( ESCITALOPRAM OXALATE) NDC: 66160889050 Dose: 10 MG DELTASONE(PredniSONE) 10 MG TAB ORAL DAILY DELTASONE (PredniSONE) NDC: 88905627185 Dose: 10 MG GAS RELIEF(SIMETHICONE) 80 MG TAB.CHEW ORAL PRN PRN GAS RELIEF ( SIMETHICONE) NDC: 36246762041 Dose: 80 MG LIDOCAINE HCL 4% ORAL SOLN(LIDOCAINE HCL) 40 MG/1 ML SOLUTION TOPICAL TID Rx Instructions: LIDOCAINE HCL 4% ORAL SOLN (LIDOCAINE HCL) NDC: 39293489701 Dose: 1 APPL APPLY TO WOUND COLACE(DOCUSATE SODIUM) 100 MG CAPSULE ORAL BID COLACE (DOCUSATE SODIUM ) NDC: 84116939647 Dose: 100 MG Mag-Ox 400(MAGNESIUM OXIDE) 400 MG TAB ORAL BIDWM Mag-Ox 400 (MAGNESIUM OXIDE) NDC: 81287136773 Dose: 400 MG LOPRESSOR(METOPROLOL TARTRATE) 25 MG TABLET ORAL BID LOPRESSOR ( METOPROLOL TARTRATE) NDC: 97456505623 Dose: 25 MG ALDACTONE(SPIRONOLACTONE) 50 MG TABLET ORAL DAILY Rx Instructions: ALDACTONE (SPIRONOLACTONE) NDC: 02807141442 Dose: 50 MG STARTED 10/06/16 x5 DAYS NEURONTIN(GABAPENTIN) 300 MG CAPSULE ORAL BID NEURONTIN (GABAPENTIN) NDC : 56147459637 Dose: 300 MG DELTASONE(PredniSONE) 5 MG TAB ORAL DAILYS DELTASONE (PredniSONE) NDC: 02136187171 Dose: 5 MG POTASSIUM CHLORIDE(POTASSIUM CHLORIDE) 20 MEQ PACKET ORAL BID POTASSIUM CHLORIDE (POTASSIUM CHLORIDE) NDC: 77666359118 Dose: 20 MEQ MUCINEX(GuaiFENesin) 600 MG TAB.ER.12H ORAL BID MUCINEX (GuaiFENesin) NDC: 94894242994 Dose: 1200 MG UROCIT-K(POTASSIUM CITRATE) 10 MEQ TAB ORAL DAILYB Rx Instructions: UROCIT-K (POTASSIUM CITRATE) NDC: 57975203436 Dose: 10 MEQ STARTED 10/10/16 x3 DAYS ZAROXOLYN(MetOLazone) 5 MG TABLET ORAL DAILY Rx Instructions: ZAROXOLYN ( MetOLazone) NDC: 65186774129 Dose: 5 MG STARTED 10/10/16 x3 DAYS Bacitracin/Polymyxin B Oint(BACITRACIN/POLYMYXIN) 15 GM OINTMENT TOPICALLY DAILY Rx Instructions: Bacitracin/Polymyxin B Oint (BACITRACIN/POLYMYXIN) NDC: 99105532561 Dose: 0 GM 1 APPLIC SANTYL(COLLAGENASE) 30 GM OINT...G. TOPICALLY DAILY Rx Instructions: SANTYL (COLLAGENASE) NDC: 00820374375 Dose: 0 GM 1 APPLICATION VENTOLIN 0.5% NEBS (use for MED REC)(ALBUTEROL SULF) 2.5 MG/0.5 ML INHALER INHALED Q2H SHORTNESS OF BREATH/WHEEZING VENTOLIN 0.5% NEBS (use for MED REC) (ALBUTEROL SULF) NDC: 31425560709 Dose: 2.5 MG Lasix(FUROSEMIDE) 40 MG TAB ORAL BIDDIURETIC Lasix (FUROSEMIDE) NDC: 48618297831 Dose: 60 MG Neurontin(GABAPENTIN) 100 MG CAP ORAL TID Neurontin (GABAPENTIN) NDC: 80530027632 Dose: 200 MG (None)(HEPARINOID) 5000 UNIT/0.5 ML SYRINGE SUBCUTANEOUSLY Q8S (None) ( HEPARINOID) NDC: 84137886756 Dose: 5000 UNIT PROTONIX(PANTOPRAZOLE) 40 MG TAB ORAL DAILY@06 PROTONIX (PANTOPRAZOLE) NDC: 88936577847 Dose: 40 MG COUMADIN(WARFARIN SODIUM) 3 MG TAB ORAL DAILY@18 Rx Instructions: COUMADIN (WARFARIN SODIUM) NDC: 71574280889 Dose: 3 MG goal INR 2.0-3.0 for a-fib VITAMIN B12 + COMPLEX(VITAMIN B COMPLEX) 1 TAB TAB ORAL DAILY VITAMIN B12 + COMPLEX (VITAMIN B COMPLEX) NDC: 82734966711 Dose: 1 TAB MORPHINE 4 MG/ML CARPUJECT(MORPHINE SULFATE/PF) 4 MG/1 ML CARTRIDGE INTRAVEN Q2H SEVERE PAIN MORPHINE 4 MG/ML CARPUJECT (MORPHINE SULFATE/PF) NDC: 52328471685 Dose: 1-2 MG OXYCODONE HCL(OxyCODONE) 5 MG TAB ORAL Q4H pain OXYCODONE HCL (OxyCODONE ) NDC: 01618808340 Dose: 5-15 MG Meropenem(MEROPENEM) 1 GM VIAL INTRAVEN Q8S Meropenem (MEROPENEM) NDC: 31922865563 Dose: 1 GM History Of Encounters Encounters Visit/Account #[id number] (October 10, 2016 10:04am - October 20, 2016 11: 50am) Account Physican Of Reason For Visit Diagnosis Start Stop Date/Time Status Record Visit Date/Time TONIE MONTOYA [facility] ACQUIRED PNEUMONIA S27.321A: CONTUSION OF LUNG, UNILATERAL, INITIAL ENCOUNTER ICD10 Oct 10, 2016 10:04am Oct 10, 2016 12:30pm IN GENEVIEVEDARCIE TUCKER MD [facility] ACQUIRED PNEUMONIA S27.321A: CONTUSION OF LUNG, UNILATERAL, INITIAL ENCOUNTER ICD10 Oct 10, 2016 12:30pm Oct 20, 2016 11: 50am History of Procedures Procedure List Visit/Account #[id number] (October 10, 2016 10:04am - October 20, 2016 11: 50am) Code/Procedure Date [id number]: EXCISION OF R LOW LEG SUBCU/FASCIA, OPEN APPROACH October 17, 2016 94IZ53V: INSERTION OF INFUSION DEV INTO SUP VENA CAVA, PERC APPROACH September Discharge Instructions Discharge Instructions Visit/Account #[id number] (October 10, 2016 10:04am - October 20, 2016 11: 50am) DISCHARGE INSTRUCTIONS Physician Documentation PROVIDER INSTRUCTIONS Discharge Diet As Tolerated Discharge Activity/Weight Bearing Status as tolerated with therapy Discharge Diet As Tolerated Discharge Activity/Weight Bearing Status as tolerated with therapy CARE MANAGEMENT/HOME HEALTH Care Management Swing bed in [place] WOUND/INCISION/CATHETER CARE Incision/Wound Care Left thomas and left heel -Solosite gel cover by mepitelone, gauze and kerlix, to be changed daily Left calf -Solosite gel cover by promogran, gauze and krelix to be changed every 2 days Right leg - Santyl, adaptic, gauze, jean carlos wrap from base of toes to just below the knee to be changed daily Coccyx - Solosite to wound. Cover with Mepilex sacrum. To be changed daily. Offloading q 2 hours. REASON TO CALL PROVIDER Notify Physician if: questions or concerns FOLLOW UP APPOINTMENTS Follow Up Appointment Date/Time: [facility]. Please let them know that I have approved an appointment for this date when you call. [facility] WITH [facility] ON OCT 30 @ 2:00 PM. Follow up lab (Protime/INR) for coumadin/warfarin dose: INR daily until 2.0-3.0 - no bridging needed, but give DVT ppx Social History Social History No Social History Data. Immunizations Immunizations Patient Unit Number: [id number] Immunizations No immunizations recorded.
--- OUTSIDE RECORDS SUMMARY | 2017-03-15 16:10 | External Medical Summary | Summary of Care ---
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 Start 02-Jun-2015 Active Mupirocin 2 % External Ointment APPLY SPARINGLY TO AFFECTED AREA(S) TWICE DAILY Quantity: 1 Refills: 2 Chrissy Estrada Start 02-Jun-2015 Active 22 GM Tube Allergies [...] Details Planned Observations Planned Goals not documented Instructions Name Dates Details Instructions not documented Encounters Appointment; Ghulam Veras M.D. On 22-Nov-2015 Encounter [...] Problem not documented 14:30 Appointment; Chrissy Chen PBeth On 12-Jan-2015 Encounter Diagnosis: Problem not documented 15:00
--- OUTSIDE RECORDS SUMMARY | 2017-03-15 16:10 | External Medical Summary | Continuity Of Care Document ---
:1940 Author Organization [facility] Address [address] [place] [address] Phone Care Team Providers Name Role Phone JAN JAMES, CRISTEL Garcia Attending Provider JOHN RAY MD Primary Care Provider Results Lab Results Visit/Account #[id number] (August 19, 2016 9:39pm - August 19, 2016 11:55pm) Test Result Date/Time HEMOGLOBIN AND HEMATOCRIT HEMOGLOBIN(13.5-17.5 G/DL) 14.7 G/DL August 19, 2016 11:05pm HEMATOCRIT(41.0-53.0 %) 44.8 % August 19, 2016 11:05pm COMPLETE BLOOD COUNT WITH DIFF WHITE BLOOD COUNT(4.0-11.0 10E3/UL) 14.8 10E3/UL August 19, 2016 9:48pm RED BLOOD COUNT(4.50-5.90 10E6/UL) 4.72 10E6/UL August 19, 2016 9:48pm HEMOGLOBIN(13.5-17.5 G/DL) 14.9 G/DL August 19, 2016 9:48pm HEMATOCRIT(41.0-53.0 %) 44.8 % August 19, 2016 9:48pm MEAN CORPUSCULAR VOLUME(82.0-100.0 FL) 94.9 FL August 19, 2016 9:48pm MEAN CORPUSCULAR HEMOGLOBIN(26.0-34.0 PG) 31.6 PG August 19, 2016 9:48pm MEAN CORPUSCULAR HGB CONC(31.5-36.5 G/DL) 33.3 G/DL August 19, 2016 9:48pm RED CELL DISTRIBUTION WIDTH(11.5-14.5 %) 14.4 % August 19, 2016 9:48pm 777-3: PLATELET COUNT(150-450 10E3/UL) 113 10E3/UL August 19, 2016 9:48pm MEAN PLATELET VOLUME(8.2-12.4 FL) 10.0 FL August 19, 2016 9:48pm NEUTROPHILS % (AUTO)(40-70 %) 88 % August 19, 2016 9:48pm LYMPHOCYTES % (AUTO)(15-45 %) 3 % August 19, 2016 9:48pm MONOCYTES % (AUTO)(2-10 %) 4 % August 19, 2016 9:48pm EOSINOPHILS % (AUTO)(0-6 %) 0 % August 19, 2016 9:48pm BASOPHILS % (AUTO)(0-1 %) 0 % August 19, 2016 9:48pm IMMATURE GRANS % (AUTO)(0-0 %) 4 % August 19, 2016 9:48pm NUCLEATED RBCS (AUTO)(0-0 %) 0 % August 19, 2016 9:48pm NEUTROPHILS # (AUTO)(2.5-7.5 10E3/UL) 13.0 10E3/UL August 19, 2016 9:48pm LYMPHOCYTES # (AUTO)(1.0-4.0 10E3/UL) 0.5 10E3/UL August 19, 2016 9:48pm MONOCYTES # (AUTO)(0.2-0.8 10E3/UL) 0.7 10E3/UL August 19, 2016 9:48pm EOSINOPHILS # (AUTO)(0.0-0.4 10E3/UL) 0.0 10E3/UL August 19, 2016 9:48pm BASOPHILS # (AUTO)(0.0-0.2 10E3/UL) 0.1 10E3/UL August 19, 2016 9:48pm IMMATURE GRANS # (AUTO)(0.0-0.0 10E3/UL) 0.6 10E3/UL August 19, 2016 9:48pm DIFF TYPE AUTOMATED August 19, 2016 9:48pm PROTHROMBIN TIME WITH INR PROTHROMBIN TIME(12.1-14.0 SEC) 19.6 SEC August 19, 2016 9:48pm 29550-7: INR 1.6 August 19, 2016 9:48pm Allergies and Adverse Reactions Allergies and Adverse Reactions Patient Unit Number: [id number] Agent Type Reaction Severity Status IODINATED CONTRAST [...] mouth Severe Active Problem List Problem List Patient Unit Number: [id number] Chronic Problems: Code/Condition Comments Documented Start Documented Code(s) Date Resolved Date Rheumatoid arthritis ICD10: M06.9 Rheumatoid arthritis SNOMED: 64071130 Rheumatoid arthritis Rheumatoid arthritis ICD10: M06.9 Rheumatoid arthritis SNOMED: 94419981 Rheumatoid arthritis Chronic anticoagulation ICD10: Z79.01 Chronic anticoagulation SNOMED: 195208732 correction current use of anticoagulant therapy Obstructive sleep apnea on CPAP ICD10: G47.33 Obstructive sleep apnea on CPAP SNOMED: 65295255 Obstructive sleep apnea treated with continuous positive airway pressure (C Bloating ICD10: R14.0 Bloating SNOMED: 119794850 Abdominal bloating Chronic constipation ICD10: K59.00 Chronic constipation SNOMED: 075430930 Chronic constipation Urinary frequency ICD10: R35.0 Urinary frequency SNOMED: 901358218 Increased frequency of urination Chronic ulcer of leg ICD10: L97.909 Chronic ulcer of leg SNOMED: 55048366 Chronic ulcer of lower extremity Traumatic open wound of lower leg ICD10: S81.809A Traumatic open wound of lower leg SNOMED: 480917753 Traumatic open wound of lower leg AAA (abdominal aortic aneurysm) without rupture ICD10: I71.4 AAA ( abdominal aortic aneurysm) without rupture SNOMED: 15312744 Abdominal aortic aneurysm without rupture Atrial fibrillation ICD10: I48.91 Atrial fibrillation SNOMED: 79644799 Atrial fibrillation Urinary retention ICD10: R33.9 Urinary retention SNOMED: 155103731 Retention of urine Elevated LFTs ICD10: R94.5 Elevated LFTs SNOMED: 254734320 Elevated liver function tests Plan of Care Plan Of Care Visit/Account #[id number] (August 19, 2016 9:39pm - August 19, 2016 11:55pm) Patient Instructions Leave Gel foam and bandage on all night unless there is active bleeding that is bleeding through the gauze Return for increased bleeding, any concern Please return immediately if you get worse, you don't get better, you develop any new concerning symptoms, or if you have any concerns Followup with primary doctor on Sunday Vital Signs Vital Signs Visit/Account #[id number] (August 19, 2016 9:39pm - August 19, 2016 11:55pm) Sign First Result Last Result Code(s) Body Mass Index Body Mass Index (BMI): 46.0 kg/m2 On August 19, 2016 9:34pm 25443-5 BMI (body mass index) Body Mass Index as a Calculated Value 46.8 kg/m2 On August 19, 2016 9:34pm 65016-0 BMI (body mass index) Body Surface Area as a Calculated Value 2.45 m2 On August 19, 2016 9:34pm 3140 -1 BSA (body surface area) Height (Feet/Inches) 5 [ft_us] 8.00 [in_us] On August 19, 2016 9:34pm 8302-2 Height Temperature in Fahrenheit Temperature (Fahrenheit): 97.7 [degF] On August 19, 2016 11:34pm 8310-5 Body Temperature Weight in Kilograms Weight (Kilograms): 139.5000 kg On August 19, 2016 9:34pm 3141-9 Weight Measured Functional Status Functional and Cognitive Status No Functional Status Data Medications Inpatient/Ordered Medications - Medications administered during hospital visit Visit/Account #[id number] (August 19, 2016 9:39pm - August 19, 2016 11:55pm) Medication Route Sig/Schedule Precondition/Indication Comments/ Instructions Codes GELFOAM SPONGE 12-7MM(GELATIN) 1 EA MISC TOPICALLY NOW GELFOAM SPONGE 12 -7MM (GELATIN) ND: 46834878264 Dose: 1 EA History Of Encounters Encounters Visit/Account #[id number] (August 19, 2016 9:39pm - August 19, 2016 11:55pm) Account Physican Of Reason For Visit Diagnosis Start Date/Time Stop Date/ Time Status Record Visit TONIE MONTOYA MD bleeding from cheek Not Available Aug 19, 2016 9:39pm Aug 19, 2016 11:55pm History of Procedures Procedure List No procedures recorded. Discharge Instructions Discharge Instructions Visit/Account #[id number] (August 19, 2016 9:39pm - August 19, 2016 11:55pm) DISCHARGE INSTRUCTIONS Physician Documentation Social History Social History No Social History Data. Immunizations Immunizations Patient Unit Number: [id number] Immunizations No immunizations recorded.
--- OUTSIDE RECORDS SUMMARY | 2017-03-15 16:10 | External Medical Summary | Summary of Care ---
:1940 Author Name Zach Oliver M.D. Address [address] [place], [place] [phone] Care Team Providers Name Role Phone Trae Pearson Primary Care Provider Unavailable Unavailable Unavailable Unavailable Functional Status Functional Status Health Issues Name Dates Details Functional status health issues are not documented Status: Cognitive Status Health Issues Name Dates Details Cognitive status health issues are not documented Status: Problems Name Dates Details Actinic keratosis (702.0, L57.0) Status: Active Squamous cell carcinoma (199.1, C80.1) [...] MG Oral Tablet Refills: 0 Started 22-Jan-2015 Active Allergies and Adverse Reactions Name Dates [...] smoker Vital Signs Date Test Result Details 22-Jan-2015 14:51 Temperature 97.8 f Status: Heart Rate 80 /min Status: Weight 280 lb Status: Results Date Description Value Details Results not documented Plan of Care Planned Observations Name Dates Details Planned Goals not documented Goal Planned Encounters Appointment; Provider: Zach Oliver On 03-Feb-2015 14:15 Instructions Instructions not documented Encounters Appointment; Zach Oliver On 22-Jan-2015 Encounter Diagnosis: Problem not documented 14:30 Appointment; Chrissy Chen On 12-Jan-2015 Encounter Diagnosis: Problem not documented 15:00
--- OUTSIDE RECORDS SUMMARY | 2017-03-15 16:11 | External Medical Summary | Summary of Care ---
:1940 Author Name Zach Oliver M.D. Address [address] [place], [place] [address] Care Team Providers Name Role Phone Zach [...] Refills: 0 Zach Oliver M.D. Started 03-Feb-2015 [id number] GM Tube Hydrocodone-Acetaminophen 10-325 MG Oral Tablet [...] Planned Encounters Appointment; Provider: Zach Oliver On 24-Feb-2015 14:00 Instructions Instructions not documented Encounters Appointment; Zach Oliver On 17-Feb-2015 Encounter Diagnosis: Problem not documented 13:00 Appointment; Zach Oliver On 10-Feb-2015 Encounter Diagnosis: Problem not documented 14:30 Appointment; Zach Oliver On 03-Feb-2015 Encounter Diagnosis: Problem not documented 14:15 Appointment; Zach Oliver On 22-Jan-2015 Encounter Diagnosis: Problem not documented 14:30 Appointment; Chrissy Chen On 12-Jan-2015 Encounter Diagnosis: Problem not documented 15:00
--- OUTSIDE RECORDS SUMMARY | 2017-03-15 16:11 | External Medical Summary | Summary of Care ---
:1940 Author Name Chrissy Estrada Address [address] Unavailable [place], [place] [address] Care Team Providers Name Role Phone Chrissy [...] Refills: 0 Zach Oliver M.D. Started 03-Feb-2015 Heeehe23 GM Tube Hydrocodone-Acetaminophen 10-325 MG Oral Tablet TAKE 1 TABLET EVERY 4 TO 6 HOURS NEEDED FOR PAIN. Quantity: 60 Refills: 0 Zach Oliver M.D. Started 10-Feb-2015 ActiveClindamycin Phosphate 1 % External Gel APPLY AND GENTLY MASSAGE INTO AFFECTED AREA(S) TWICE DAILY. Quantity: 1 Refills: 1 Zach Oliver M.D. Started 17-Mar-2015 Gfolxy30 GM Tube Clindamycin HCl - 150 MG Oral Capsule TAKE 1 CAPSULE 3 times daily Quantity: 270 Refills: 0 Chrissy Chen P.A. Started 14-Apr-2015 ActiveNormal Saline Flush 0.9 % Intravenous Solution use as directoed Refills: 0 Zach Oliver M.D. Started 02-Jun-2015 ActiveMupirocin 2 % External Ointment APPLY SPARINGLY TO AFFECTED AREA(S) TWICE DAILY Quantity: 1 Refills: 2 Dominic Chenie P.A. Started 02-Jun-2015 Auascu07 GM Tube Allergies and Adverse Reactions Name [...]
--- OUTSIDE RECORDS SUMMARY | 2017-03-15 16:11 | External Medical Summary | Summary of Care ---
:1940 Author Name Zach Oliver M.D. Address [address] [place], [place] [address] Care Team Providers Name Role Phone Zach [...] Started 22-Jan-2015 ActiveHydrocodone-Acetaminophen 7.5-325 MG Oral Tablet TAKE 1 TO 2 TABLETS EVERY 4 TO 6 HOURS NEEDED FOR PAIN. Quantity: 45 Refills: 0 Zach Oliver M.D. Started 22-Jan-2015 ActiveFolic Acid 1 MG Oral [...] Refills: 0 Zach Oliver M.D. Started 03-Feb-2015 Qeaatl19 GM Tube Allergies and Adverse Reactions Name [...] Dates Details Planned Goals not documented Goal Instructions Instructions not documented Encounters Appointment; Zach Oliver On 10-Feb-2015 Encounter Diagnosis: Problem not documented 14:30 Appointment; Zach Oliver On 03-Feb-2015 Encounter Diagnosis: Problem not documented 14:15 Appointment; Zach Oliver On 22-Jan-2015 Encounter Diagnosis: Problem not documented 14:30 Appointment; Chrissy Chen On 12-Jan-2015 Encounter Diagnosis: Problem not documented 15:00
--- OUTSIDE RECORDS SUMMARY | 2017-03-15 16:11 | External Medical Summary | Summary of Care ---
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 Quantity: 30 Refills: 0 Start -Jan-2015 Active PredniSONE 5 MG Oral Tablet Refills: 0 Start 22-Jan-2015 Active Aspirin 81 MG TABS Refills: 0 Start 22-Jan-2015 Active Bacitracin 500 UNIT/GM External Ointment APPLY SPARINGLY TO AFFECTED AREA(S) 3 TIMES A DAY x 10 days and as prn Quantity: 1 Refills: 0 Benito Corona Zach Start 03-Feb-2015 Active 30 GM Tube Fluorouracil 5 % External Cream APPLY A THIN LAYER TO AFFECTED AREA(S) ON FOREHEAD AND SCALP NIGHTLY x 4 WEEKS Quantity: 1 Refills: 1 Chrissy Estrada Start 10-May-2016 Active 40 GM Tube Normal Saline Flush 0.9 % Intravenous Solution use as directoed Refills: 0 Benito Corona Zach Start 02-Jun-2015 Active Hydrocodone-Acetaminophen 10-325 MG Oral Tablet TAKE 1 TABLET EVERY 4 TO 6 HOURS NEEDED FOR PAIN. Quantity: 60 Refills: 0 Benito Corona Zach Start 10-Feb-2015 Active Clindamycin Phosphate 1 % External Gel APPLY AND GENTLY MASSAGE INTO AFFECTED AREA(S) TWICE DAILY. Quantity: 1 Refills: 1 Benito Corona Zach Start 17-Mar-2015 Active 30 GM Tube TraMADol HCl - 50 MG Oral Tablet TAKE 2 TABLETS EVERY 6 HOURS. Refills: 0 Start 22-Jan-2015 Active Bumetanide 2 MG Oral Tablet TAKE 2 TABLET Weekly Refills: 0 Start 22-Jan-2015 Active Trexall 10 MG Oral Tablet 2.5 tablets weekly Refills: 0 Start 22-Jan-2015 Active Ascorbic Acid 1000 MG Oral Tablet TAKE 1 TABLET DAILY. Refills: 0 Start 22-Jan-2015 Active Vitamin D3 1000 UNIT Oral Capsule Refills: 0 Start 22-Jan-2015 Active Magnesium Oxide 250 MG Oral Tablet Refills: 0 Start 22-Jan-2015 Active Calcium 250 MG Oral Capsule Refills: 0 Start 22-Jan-2015 Active CoQ-10 400 MG Oral Capsule TAKE 1 CAPSULE DAILY WITH A MEAL. Refills: 0 Start 22-Jan-2015 Active Clindamycin HCl - 150 MG Oral Capsule TAKE 1 CAPSULE 3 times daily Quantity: 270 Refills: 1 April Roberth.Chrissy Doan Start 14-Apr-2015 Active Mupirocin 2 % External Ointment APPLY SPARINGLY TO AFFECTED AREA(S) TWICE DAILY Quantity: 1 Refills: 2 April Roberth.Chrissy Doan Start 02-Jun-2015 Active 22 GM Tube Allergies [...] Encounters Appointment; Provider: Wendy Guadarrama On 14:45 Appointment; Provider: Ghulam Veras M.D. On 10-Nov-2015 13:30 Instructions Name Dates Details Instructions not documented Encounters Appointment; Chrissy Chen P.A. On 12-Jul-2016 Encounter Diagnosis: Problem not documented 15:15 Appointment; Chrissy Chen P.A. On 08-Jun-2016 Encounter Diagnosis: Problem not documented 14:45 Appointment; Reji Comer M.D.|ALEJANDRO|Chloe,ALEJANDRO|Chloe,ALEJANDRO, On 23-May-2016 Encounter Diagnosis: Problem not documented [...] Encounter Diagnosis: Problem not documented 13:00 Appointment; Ghulma Veras M.D. On 10-Nov-2015 Encounter Diagnosis: Problem [...]
--- OUTSIDE RECORDS SUMMARY | 2017-03-15 16:11 | External Medical Summary | Summary of Care ---
:1940 Author Name Chrissy Estrada Address [address] Unavailable [place], [place] [id number] Care Team Providers Name Role Phone Chrissy [...] Squamous cell carcinoma of skin of left shinto (173.32, C44.329) Status: Active Squamous cell carcinoma [...]
--- OUTSIDE RECORDS SUMMARY | 2017-03-15 16:11 | External Medical Summary | Summary of Care ---
:1940 Author Name Zach Oliver M.D. Address [address] [place], [place] [id number] Care Team Providers Name Role Phone Zach [...] Refills: 0 Zach Oliver M.D. Started 03-Feb-2015 [id number] GM Tube Hydrocodone-Acetaminophen 10-325 MG Oral Tablet [...]
--- OUTSIDE RECORDS SUMMARY | 2017-03-15 16:11 | External Medical Summary | Summary of Care ---
:1940 Author Name Benito Corona, Zach Address [address], [place] [id number] Care Team Providers Name Role Phone Chrissy [...] Refills: 0 Zach Oliver M.D. Started 03-Feb-2015 [id number] GM Tube Hydrocodone-Acetaminophen 10-325 MG Oral Tablet TAKE 1 TABLET EVERY 4 TO 6 HOURS NEEDED FOR PAIN. Quantity: 60 Refills: 0 Zach Oliver M.D. Started 10-Feb-2015 ActiveClindamycin Phosphate 1 % External Gel APPLY AND GENTLY MASSAGE INTO AFFECTED AREA(S) TWICE DAILY. Quantity: 1 Refills: 1 Zach Oliver M.D. Started 17-Mar-2015 [id number] GM Tube Clindamycin HCl - 150 MG Oral Capsule TAKE 1 CAPSULE 3 times daily Quantity: 270 Refills: 0 Zach Oliver M.D. Started 14-Apr-2015 ActiveNormal Saline Flush 0.9 % Intravenous Solution use as directoed Refills: 0 Zach Oliver M.D. Started 02-Jun-2015 ActiveMupirocin 2 % External Ointment APPLY SPARINGLY TO AFFECTED AREA(S) TWICE DAILY Quantity: 1 Refills: 2 Chrissy Chen Started 02-Jun-2015 [id number] GM Tube Allergies and Adverse Reactions Name [...]
--- OUTSIDE RECORDS SUMMARY | 2017-03-15 16:11 | External Medical Summary | Summary of Care ---
:1940 Author Name Zach Oliver M.D. Address [address] [place], [place] [id number] Care Team Providers Name Role Phone Zach [...] 0 Zach Oliver M.D. Started 03-Feb-2015 Ended 13-Mar-2015 ActiveBacitracin 500 UNIT/GM External Ointment APPLY SPARINGLY TO AFFECTED AREA(S) 3 TIMES A DAY x 10 days and as prn Quantity: 1 Refills: 0 Zach Oliver M.D. Started 03-Feb-2015 [id number] GM Tube Hydrocodone-Acetaminophen 10-325 MG Oral Tablet [...] smoker Vital Signs Date Test Result Details 03-Mar-2015 15:28 BP Systolic 140 mm[Hg] Status: BP Diastolic 84 mm[Hg] Status: Temperature 97.9 f Status: Heart Rate 80 /min Status: 03-Feb-2015 13:47 BP Systolic 158 mm[Hg] Status: [...] Planned Encounters Appointment; Provider: Zach Oliver On 17-Mar-2015 14:30 Instructions Instructions not documented Encounters Appointment; Zach Oliver On 03-Mar-2015 Encounter Diagnosis: Problem not documented 15:15 Appointment; Zach Oliver On 24-Feb-2015 Encounter Diagnosis: Problem not documented 14:00 Appointment; Zach Oliver On 17-Feb-2015 Encounter Diagnosis: Problem not documented 13:00 Appointment; Zach Oliver On 10-Feb-2015 Encounter Diagnosis: Problem not documented 14:30 Appointment; Zach Olvier On 03-Feb-2015 Encounter Diagnosis: Problem not documented 14:15 Appointment; Zach Oliver On 22-Jan-2015 Encounter Diagnosis: Problem not documented 14:30 Appointment; Chrissy Chen On 12-Jan-2015 Encounter Diagnosis: Problem not documented 15:00
--- OUTSIDE RECORDS SUMMARY | 2017-03-15 16:12 | External Medical Summary | Summary of Care ---
:1940 Author Name Chrissy Estrada Address [address] Unavailable [place], [place] [phone] Care Team Providers Name Role Phone Chrissy [...] Squamous cell carcinoma of skin of left religious (173.32, C44.329) Status: Active Squamous cell carcinoma [...] Planned Encounters Appointment; Provider: Wendy Guadarrama On 12-Jul-2016 15:15 Appointment; Provider: Reji Comer M.D.|FACP|MMabel,FACP|Chloe,ALEJANDRO, On Jun-2016 14:00 Instructions Name Dates Details Instructions not documented Encounters Appointment; Reji Comer M.D.|FACP|MMabel,FACP|Chloe,COCOP, On 23-May-2016 Encounter Diagnosis: Problem not documented [...]
--- OUTSIDE RECORDS SUMMARY | 2017-03-15 16:12 | External Medical Summary | Summary of Care ---
:1940 Author Name Chrissy Estrada Address [address], [place] [phone] Care Team Providers Name Role Phone Trae [...] C80.1) Status: Active Medications Name Dates Details Medication not documented Allergies and Adverse Reactions Name Dates Details Allergy history not documented Status: Procedures Procedure Dates Details Procedures not documented Immunization Name Dates Details Immunizations not documented Social History Smoking StatusUnknown if ever smoked Vital Signs Date Test Result Details No Known Vitals to report Results Date Description Value Details Results not documented Plan of Care Planned Observations Name Dates Details Planned Goals not documented Goal Planned Encounters Appointment; Provider: Zach Oliver On 15-Jan-2015 09:30 Instructions Instructions not documented Encounters Appointment; Chrissy Chen On 12-Jan-2015 Encounter Diagnosis: Problem not documented 15:00
--- OUTSIDE RECORDS SUMMARY | 2017-03-15 16:12 | External Medical Summary | Summary of Care ---
:1940 Author Name Zach Oliver M.D. Address [address] [place], [place] [phone] Care Team Providers Name Role Phone Zach [...] Refills: 0 Zach Oliver M.D. Started 03-Feb-2015 [id number] GM Tube Hydrocodone-Acetaminophen 10-325 MG Oral Tablet TAKE 1 TABLET EVERY 4 TO 6 HOURS NEEDED FOR PAIN. Quantity: 60 Refills: 0 Zach Oliver M.D. Started 10-Feb-2015 ActiveClindamycin Phosphate 1 % External Gel APPLY AND GENTLY MASSAGE INTO AFFECTED AREA(S) TWICE DAILY. Quantity: 1 Refills: 1 Zach Oliver M.D. Started 17-Mar-2015 [id number] GM Tube Allergies and Adverse Reactions Name [...] smoker Vital Signs Date Test Result Details 17-Mar-2015 14:45 BP Systolic 163 mm[Hg] Status: BP Diastolic 101 mm[Hg] Status: Heart Rate 73 /min Status: Respiration Rate 18 /min Status: 03-Mar-2015 15:28 BP Systolic 140 mm[Hg] Status: BP Diastolic 84 mm[Hg] Status: Temperature 97.9 f Status: Heart Rate 80 /min Status: Results Date Description Value Details Results not documented Plan of Care Planned Observations Name Dates Details Planned Goals not documented Goal Planned Encounters Appointment; Provider: Zach Oliver On 14-Apr-2015 14:45 Instructions Instructions not documented Encounters Appointment; Zach Oliver On 17-Mar-2015 Encounter Diagnosis: [...]
--- OUTSIDE RECORDS SUMMARY | 2017-03-15 16:12 | External Medical Summary | Continuity Of Care Document ---
:1940 Author Organization [facility] Address [address] [place] [address] Phone Care Team Providers Name Role Phone UNASSIGNED, ED PHYSICIAN Unavailable Unavailable EDISON CUMMINGS DO Consulting Provider FLORECITA JAMES, ANDREW Dos Santos Consulting Provider CORY JAMES, JOHN Gay Primary Care Provider SANDY JAMES, ARASELI Mike Attending Provider Results Lab Results Visit/Account #[id number] (June 26, 2015 6:02pm - July 05, 2015 7:56pm) Test Result Date/Time CG8 ARTERIAL [id number]: STYPE ART June 27, 2015 4:01pm HEMOGLOBIN(13.0-18.0 G/DL) 12.9 G/DL June 27, 2015 4:01pm HEMATOCRIT(39.0-54.0 %) 38.0 % June 27, 2015 4:01pm GLUCOSE(70-110 MG/DL) 97 MG/DL June 27, 2015 4:01pm SODIUM(135-145 MMOL/L) 138 MMOL/L June 27, 2015 4:01pm POTASSIUM(3.6-5.0 MMOL/L) 4.1 MMOL/L June 27, 2015 4:01pm IONIZED CALCIUM(1.12-1.32 mmol/L) 1.18 mmol/L June 27, 2015 4:01pm 20283-4: PH(7.35-7.45) 7.348 June 27, 2015 4:01pm PCO2(35-45 mmHg) 42.3 mmHg June 27, 2015 4:01pm 27862-6: PO2(80-105 mmHg) 163 mmHg June 27, 2015 4:01pm HCO3(22-26 MMOL/L) 23.2 MMOL/L June 27, 2015 4:01pm TCO2(23-27 MMOL/L) 25 MMOL/L June 27, 2015 4:01pm SO2C(95-98 %) 99 % June 27, 2015 4:01pm 1922-4: ABG BASE DEFICIT(0-30 mmol/L) 2 mmol/L June 27, 2015 4:01pm CREATININE,POINT OF CARE POC CREATININE(0.6-1.3 MG/DL) 0.9 MG/DL June 26, 2015 6:47pm 34452-4: EST GLOMERULAR FILTRATION RATE(Greater than or equal to 60) Greater than 60 June 26, 2015 6:47pm POCGL POCGL(70-110 MG/DL) 88 MG/DL June 28, 2015 5:26pm POC LACTIC ACID VENOUS POC LACTIC ACID VENOUS(0.90-1.70 MMOL/L) 8.11 MMOL/L June 26, 2015 9:03pm 73456-0: COMPLETE BLOOD COUNT WITH DIFF WHITE BLOOD COUNT(4.0-11.0 10E3/UL) 9.5 10E3/UL June 30, 2015 5:45am RED BLOOD COUNT(4.50-5.90 10E6/UL) 3.18 10E6/UL June 30, 2015 5:45am HEMOGLOBIN(13.5-17.5 G/DL) 10.3 G/DL June 30, 2015 5:45am HEMATOCRIT(41.0-53.0 %) 31.5 % June 30, 2015 5:45am MEAN CORPUSCULAR VOLUME(82.0-100.0 FL) 99.1 FL June 30, 2015 5:45am 00020-8: MEAN CORPUSCULAR HEMOGLOBIN(26.0-34.0 PG) 32.4 PG June 30, 2015 5: 45am MEAN CORPUSCULAR HGB CONC(31.5-36.5 G/DL) 32.7 G/DL June 30, 2015 5:45am RED CELL DISTRIBUTION WIDTH(11.5-14.5 %) 14.2 % June 30, 2015 5:45am 777-3: PLATELET COUNT(150-450 10E3/UL) 112 10E3/UL June 30, 2015 5:45am MEAN PLATELET VOLUME(8.2-12.4 FL) 10.9 FL June 30, 2015 5:45am 770-8: NEUTROPHILS % (AUTO)(40-70 %) 87 % June 30, 2015 5:45am LYMPHOCYTES % (AUTO)(15-45 %) 5 % June 30, 2015 5:45am 5905-5: MONOCYTES % (AUTO)(2-10 %) 6 % June 30, 2015 5:45am 713-8: EOSINOPHILS % (AUTO)(0-6 %) 2 % June 30, 2015 5:45am 706-2: BASOPHILS % (AUTO)(0-1 %) 0 % June 30, 2015 5:45am 89474-1: IMMATURE GRANS % (AUTO)(0-0 %) 1 % June 30, 2015 5:45am NUCLEATED RBCS (AUTO)(0-0 %) 0 % June 30, 2015 5:45am 751-8: NEUTROPHILS # (AUTO)(2.5-7.5 10E3/UL) 8.2 10E3/UL June 30, 2015 5:45am 12216-6: LYMPHOCYTES # (AUTO)(1.0-4.0 10E3/UL) 0.4 10E3/UL June 30, 2015 5: 45am 742-7: MONOCYTES # (AUTO)(0.2-0.8 10E3/UL) 0.5 10E3/UL June 30, 2015 5:45am 711-2: EOSINOPHILS # (AUTO)(0.0-0.4 10E3/UL) 0.2 10E3/UL June 30, 2015 5:45am 704-7: BASOPHILS # (AUTO)(0.0-0.2 10E3/UL) 0.0 10E3/UL June 30, 2015 5:45am IMMATURE GRANS # (AUTO)(0.0-0.0 10E3/UL) 0.1 10E3/UL June 30, 2015 5:45am DIFF TYPE AUTOMATED June 30, 2015 5:45am COMPLETE BLOOD COUNT WHITE BLOOD COUNT(4.0-11.0 10E3/UL) 11.5 10E3/UL June 27, 2015 8:04pm RED BLOOD COUNT(4.50-5.90 10E6/UL) 3.82 10E6/UL June 27, 2015 8:04pm HEMOGLOBIN(13.5-17.5 G/DL) 12.6 G/DL June 27, 2015 8:04pm HEMATOCRIT(41.0-53.0 %) 37.7 % June 27, 2015 8:04pm MEAN CORPUSCULAR VOLUME(82.0-100.0 FL) 98.7 FL June 27, 2015 8:04pm 86778-8: MEAN CORPUSCULAR HEMOGLOBIN(26.0-34.0 PG) 33.0 PG June 27, 2015 8:04pm MEAN CORPUSCULAR HGB CONC(31.5-36.5 G/DL) 33.4 G/DL June 27, 2015 8:04pm RED CELL DISTRIBUTION WIDTH(11.5-14.5 %) 14.9 % June 27, 2015 8:04pm 777-3: PLATELET COUNT(150-450 10E3/UL) 159 10E3/UL June 27, 2015 8:04pm MEAN PLATELET VOLUME(8.2-12.4 FL) 10.2 FL June 27, 2015 8:04pm NUCLEATED RBCS (AUTO)(0-0 %) 0 % June 27, 2015 8:04pm HEMOGLOBIN HEMOGLOBIN(13.5-17.5 G/DL) 16.6 G/DL June 26, 2015 10:06pm 13.3 G/DL June 27, 2015 9:31am 10.9 G/DL June 28, 2015 2:20am 11.0 G/DL June 28, 2015 7:53am 11.0 G/DL June 28, 2015 1:51pm 10.8 G/DL June 28, 2015 7:51pm CBC WITH REFLEXED MANUAL DIFF WHITE BLOOD COUNT(4.0-11.0 10E3/UL) 21.5 10E3/UL June 26, 2015 6:24pm 13.0 10E3/UL June 27, 2015 3:40am 10.5 10E3/UL June 28, 2015 3:39am 13.4 10E3/UL June 29, 2015 5:45am 9.3 10E3/UL July 01, 2015 7:00am 4.6 10E3/UL July 02, 2015 7:00am 2.8 10E3/UL July 03, 2015 6:35am 4.6 10E3/UL July 05, 2015 6:37am RED BLOOD COUNT(4.50-5.90 10E6/UL) 5.79 10E6/UL June 26, 2015 6:24pm 4.28 10E6/UL June 27, 2015 3:40am 3.40 10E6/UL June 28, 2015 3:39am 3.17 10E6/UL June 29, 2015 5:45am 3.21 10E6/UL July 01, 2015 7:00am 3.08 10E6/UL July 02, 2015 7:00am 3.53 10E6/UL July 03, 2015 6:35am 3.62 10E6/UL July 05, 2015 6:37am HEMOGLOBIN(13.5-17.5 G/DL) 19.0 G/DL June 26, 2015 6:24pm 14.0 G/DL June 27, 2015 3:40am 11.0 G/DL June 28, 2015 3:39am 10.3 G/DL June 29, 2015 5:45am 10.3 G/DL July 01, 2015 7:00am 9.9 G/DL July 02, 2015 7:00am 11.3 G/DL July 03, 2015 6:35am 11.6 G/DL July 05, 2015 6:37am HEMATOCRIT(41.0-53.0 %) 56.5 % June 26, 2015 6:24pm 41.4 % June 27, 2015 3:40am 33.6 % June 28, 2015 3:39am 32.0 % June 29, 2015 5:45am 31.6 % July 01, 2015 7:00am 30.5 % July 02, 2015 7:00am 34.4 % July 03, 2015 6:35am 35.4 % July 05, 2015 6:37am MEAN CORPUSCULAR VOLUME(82.0-100.0 FL) 97.6 FL June 26, 2015 6:24pm 96.7 FL June 27, 2015 3:40am 98.8 FL June 28, 2015 3:39am 100.9 FL June 29, 2015 5:45am 98.4 FL July 01, 2015 7:00am 99.0 FL July 02, 2015 7:00am 97.5 FL July 03, 2015 6:35am 97.8 FL July 05, 2015 6:37am 46004-8: MEAN CORPUSCULAR HEMOGLOBIN(26.0-34.0 PG) 32.8 PG June 26, 2015 6:24pm 32.7 PG June 27, 2015 3:40am 32.4 PG June 28, 2015 3:39am 32.5 PG June 29, 2015 5:45am 32.1 PG July 01, 2015 7:00am 32.1 PG July 02, 2015 7:00am 32.0 PG July 03, 2015 6:35am 32.0 PG July 05, 2015 6:37am MEAN CORPUSCULAR HGB CONC(31.5-36.5 G/DL) 33.6 G/DL June 26, 2015 6:24pm 33.8 G/DL June 27, 2015 3:40am 32.7 G/DL June 28, 2015 3:39am 32.2 G/DL June 29, 2015 5:45am 32.6 G/DL July 01, 2015 7:00am 32.5 G/DL July 02, 2015 7:00am 32.8 G/DL July 03, 2015 6:35am 32.8 G/DL July 05, 2015 6:37am RED CELL DISTRIBUTION WIDTH(11.5-14.5 %) 14.8 % June 26, 2015 6:24pm 14.7 % June 27, 2015 3:40am 14.8 % June 28, 2015 3:39am 14.6 % June 29, 2015 5:45am 14.0 % July 01, 2015 7:00am 13.9 % July 02, 2015 7:00am 14.2 % July 03, 2015 6:35am 14.1 % July 05, 2015 6:37am 777-3: PLATELET COUNT(150-450 10E3/UL) 205 10E3/UL June 26, 2015 6:24pm 163 10E3/UL June 27, 2015 3:40am 144 10E3/UL June 28, 2015 3:39am 115 10E3/UL June 29, 2015 5:45am 106 10E3/UL July 01, 2015 7:00am 133 10E3/UL July 02, 2015 7:00am 153 10E3/UL July 03, 2015 6:35am 234 10E3/UL July 05, 2015 6:37am MEAN PLATELET VOLUME(8.2-12.4 FL) 10.5 FL June 26, 2015 6:24pm 9.8 FL June 27, 2015 3:40am 10.6 FL June 28, 2015 3:39am 10.3 FL June 29, 2015 5:45am 11.2 FL July 01, 2015 7:00am 11.7 FL July 02, 2015 7:00am 11.7 FL July 03, 2015 6:35am 11.4 FL July 05, 2015 6:37am DIFF TYPE MANUAL June 26, 2015 6:24pm MANUAL June 27, 2015 3:40am MANUAL June 28, 2015 3:39am MANUAL June 29, 2015 5:45am MANUAL July 01, 2015 7:00am MANUAL July 02, 2015 7:00am MANUAL July 03, 2015 6:35am MANUAL July 05, 2015 6:37am NEUTROPHIL % (MANUAL)(40-70 %) 87 % June 26, 2015 6:24pm 86 % June 27, 2015 3:40am 82 % June 28, 2015 3:39am 91 % June 29, 2015 5:45am 86 % July 01, 2015 7:00am 87 % July 02, 2015 7:00am 63 % July 03, 2015 6:35am 75 % July 05, 2015 6:37am BANDS%(0-3 %) 9 % June 26, 2015 6:24pm 10 % June 27, 2015 3:40am 12 % June 28, 2015 3:39am 2 % June 29, 2015 5:45am 1 % July 01, 2015 7:00am 8 % July 03, 2015 6:35am 1 % July 05, 2015 6:37am LYMPHOCYTES % (MANUAL)(15-45 %) 1 % June 26, 2015 6:24pm 4 % June 27, 2015 3:40am 5 % June 28, 2015 3:39am 2 % June 29, 2015 5:45am 8 % July 01, 2015 7:00am 6 % July 02, 2015 7:00am 13 % July 03, 2015 6:35am 11 % July 05, 2015 6:37am MONOCYTES % (MANUAL)(2-10 %) 2 % June 26, 2015 6:24pm 0 % June 27, 2015 3:40am 1 % June 28, 2015 3:39am 4 % June 29, 2015 5:45am 3 % July 01, 2015 7:00am 5 % July 02, 2015 7:00am 7 % July 03, 2015 6:35am 7 % July 05, 2015 6:37am EOSINOPHILS % (MANUAL)(0-6 %) 0 % June 26, 2015 6:24pm 0 % June 27, 2015 3:40am 0 % June 28, 2015 3:39am 1 % June 29, 2015 5:45am 2 % July 01, 2015 7:00am 2 % July 02, 2015 7:00am 5 % July 03, 2015 6:35am 3 % July 05, 2015 6:37am 04307-8: BASOPHILS % (MANUAL)(0-1 %) 1 % June 26, 2015 6:24pm 0 % June 27, 2015 3:40am 0 % June 28, 2015 3:39am 0 % June 29, 2015 5:45am 0 % July 01, 2015 7:00am 0 % July 02, 2015 7:00am 2 % July 03, 2015 6:35am 2 % July 05, 2015 6:37am METAMYELOCYTES %(0-0 %) 1 % July 03, 2015 6:35am 1 % July 05, 2015 6:37am MYELOCYTES % (MANUAL)(0-0 %) 1 % July 03, 2015 6:35am NUCLEATED RBCS (MANUAL)(0-0 %) 0 % June 26, 2015 6:24pm 0 % June 27, 2015 3:40am 0 % June 28, 2015 3:39am 0 % June 29, 2015 5:45am 0 % July 01, 2015 7:00am 0 % July 02, 2015 7:00am 0 % July 03, 2015 6:35am 0 % July 05, 2015 6:37am 753-4: NEUTROPHILS # (MANUAL)(2.5-7.5 10E3/UL) 20.6 10E3/UL June 26, 2015 6: 24pm 12.5 10E3/UL June 27, 2015 3:40am 9.9 10E3/UL June 28, 2015 3:39am 12.5 10E3/UL June 29, 2015 5:45am 8.1 10E3/UL July 01, 2015 7:00am 4.0 10E3/UL July 02, 2015 7:00am 2.0 10E3/UL July 03, 2015 6:35am 3.5 10E3/UL July 05, 2015 6:37am 732-8: LYMPHOCYTES # (MANUAL)(1.0-4.0 10E3/UL) 0.2 10E3/UL June 26, 2015 6:24pm 0.5 10E3/UL June 27, 2015 3:40am 0.5 10E3/UL June 28, 2015 3:39am 0.3 10E3/UL June 29, 2015 5:45am 0.7 10E3/UL July 01, 2015 7:00am 0.3 10E3/UL July 02, 2015 7:00am 0.4 10E3/UL July 03, 2015 6:35am 0.5 10E3/UL July 05, 2015 6:37am 743-5: MONOCYTES # (MANUAL)(0.2-0.8 10E3/UL) 0.4 10E3/UL June 26, 2015 6:24pm 0.1 10E3/UL June 28, 2015 3:39am 0.5 10E3/UL June 29, 2015 5:45am 0.3 10E3/UL July 01, 2015 7:00am 0.2 10E3/UL July 02, 2015 7:00am 0.2 10E3/UL July 03, 2015 6:35am 0.3 10E3/UL July 05, 2015 6:37am 712-0: EOSINOPHILS # (MANUAL)(0.0-0.4 10E3/UL) 0.1 10E3/UL June 29, 2015 5: 45am 0.2 10E3/UL July 01, 2015 7:00am 0.1 10E3/UL July 02, 2015 7:00am 0.1 10E3/UL July 03, 2015 6:35am 0.1 10E3/UL July 05, 2015 6:37am 705-4: BASOPHILS # (MANUAL)(0.0-0.2 10E3/UL) 0.2 10E3/UL June 26, 2015 6:24pm 0.0 10E3/UL June 27, 2015 3:40am 0.0 10E3/UL June 28, 2015 3:39am 0.0 10E3/UL June 29, 2015 5:45am 0.0 10E3/UL July 01, 2015 7:00am 0.0 10E3/UL July 02, 2015 7:00am 0.1 10E3/UL July 03, 2015 6:35am 0.1 10E3/UL July 05, 2015 6:37am IMMATURE MYELOID CELLS #(0-0 10E3/UL) 0.1 10E3/UL July 03, 2015 6:35am 0.0 10E3/UL July 05, 2015 6:37am 9317-9: PLATELET ESTIMATE ADEQUATE June 26, 2015 6:24pm ADEQUATE June 27, 2015 3:40am DECREASED June 28, 2015 3:39am ADEQUATE June 29, 2015 5:45am DECREASED July 01, 2015 7:00am ADEQUATE July 02, 2015 7:00am ADEQUATE July 03, 2015 6:35am ADEQUATE July 05, 2015 6:37am 51371-7: WBC MORPHOLOGY COMMENT NORMAL June 26, 2015 6:24pm NORMAL June 27, 2015 3:40am NORMAL June 28, 2015 3:39am NORMAL June 29, 2015 5:45am NORMAL July 01, 2015 7:00am NORMAL July 02, 2015 7:00am NORMAL July 03, 2015 6:35am NORMAL July 05, 2015 6:37am 6742-1: RBC MORPHOLOGY COMMENT NORMAL June 26, 2015 6:24pm NORMAL June 27, 2015 3:40am NORMAL June 28, 2015 3:39am NORMAL June 29, 2015 5:45am NORMAL July 01, 2015 7:00am NORMAL July 02, 2015 7:00am NORMAL July 03, 2015 6:35am NORMAL July 05, 2015 6:37am 03137-6: PLATELET MORPHOLOGY COMMENT NORMAL June 26, 2015 6:24pm NORMAL June 27, 2015 3:40am NORMAL June 28, 2015 3:39am NORMAL June 29, 2015 5:45am NORMAL July 01, 2015 7:00am NORMAL July 02, 2015 7:00am NORMAL July 03, 2015 6:35am NORMAL July 05, 2015 6:37am 19798-5: PROTHROMBIN TIME WITH INR PROTHROMBIN TIME(12.1-14.0 SEC) 33.6 SEC June 26, 2015 6:24pm 18.3 SEC June 26, 2015 11:04pm 25.6 SEC June 27, 2015 8:04pm 17.5 SEC July 05, 2015 6:37am 12511-7: INR 3.47 June 26, 2015 6:24pm Result Comments: INR reference interval applies to patients on anticoagulant therapy. Suggested INR therapeutic range for oral anticoagulant therapy: (Stabilized anticoagulated patients) Routine Therapy: 2.0 to 3.0 Recurrent Myocardial Infarction: 2.5 to 3.5 Mechanical Prosthetic Valves: 2.5 to 3.5 1.59 June 26, 2015 11:04pm Result Comments: INR reference interval applies to patients on anticoagulant therapy. Suggested INR therapeutic range for oral anticoagulant therapy: (Stabilized anticoagulated patients) Routine Therapy: 2.0 to 3.0 Recurrent Myocardial Infarction: 2.5 to 3.5 Mechanical Prosthetic Valves: 2.5 to 3.5 2.45 June 27, 2015 8:04pm Result Comments: INR reference interval applies to patients on anticoagulant therapy. Suggested INR therapeutic range for oral anticoagulant therapy: (Stabilized anticoagulated patients) Routine Therapy: 2.0 to 3.0 Recurrent Myocardial Infarction: 2.5 to 3.5 Mechanical Prosthetic Valves: 2.5 to 3.5 1.50 July 05, 2015 6:37am Result Comments: INR reference interval applies to patients on anticoagulant therapy. Suggested INR therapeutic range for oral anticoagulant therapy: (Stabilized anticoagulated patients) Routine Therapy: 2.0 to 3.0 Recurrent Myocardial Infarction: 2.5 to 3.5 Mechanical Prosthetic Valves: 2.5 to 3.5 PARTIAL THROMBOPLASTIN TIME PARTIAL THROMBOPLASTIN TIME(22.2-37.4 SEC) 37.1 SEC June 26, 2015 6:24pm 27440-0: COMPLETE METABOLIC PROFILE GLUCOSE(70-110 MG/DL) 155 MG/DL June 26, 2015 6:24pm 103 MG/DL June 27, 2015 3:40am 93 MG/DL June 28, 2015 3:39am 112 MG/DL June 29, 2015 5:45am BLOOD UREA NITROGEN(6-20 MG/DL) 29 MG/DL June 26, 2015 6:24pm 29 MG/DL June 27, 2015 3:40am 26 MG/DL June 28, 2015 3:39am 21 MG/DL June 29, 2015 5:45am CREATININE(0.50-1.20 MG/DL) 0.90 MG/DL June 26, 2015 6:24pm 0.71 MG/DL June 27, 2015 3:40am 0.73 MG/DL June 28, 2015 3:39am 0.59 MG/DL June 29, 2015 5:45am 64351-1: EST GLOMERULAR FILTRATION RATE(Greater than or equal to 60) Greater than or equal to 60 June 26, 2015 6:24pm Result Comments: If the patient is of -[place] descent/extraction multiply the eGFR value by 1.212 to obtain the actual eGFR. >=60 mg/dL Normal 30-59 mg/dL Moderate Kidney Disease 15-29 mg/dL Severe Kidney Disease <15 mg/dL Kidney Failure Greater than or equal to 60 June 27, 2015 3:40am Result Comments: If the patient is of -[place] descent/extraction multiply the eGFR value by 1.212 to obtain the actual eGFR. >=60 mg/dL Normal 30-59 mg/dL Moderate Kidney Disease 15-29 mg/dL Severe Kidney Disease <15 mg/dL Kidney Failure Greater than or equal to 60 June 28, 2015 3:39am Result Comments: If the patient is of -[place] descent/extraction multiply the eGFR value by 1.212 to obtain the actual eGFR. >=60 mg/dL Normal 30-59 mg/dL Moderate Kidney Disease 15-29 mg/dL Severe Kidney Disease <15 mg/dL Kidney Failure Greater than or equal to 60 June 29, 2015 5:45am Result Comments: If the patient is of -[place] descent/extraction multiply the eGFR value by 1.212 to obtain the actual eGFR. >=60 mg/dL Normal 30-59 mg/dL Moderate Kidney Disease 15-29 mg/dL Severe Kidney Disease <15 mg/dL Kidney Failure BUN CREATININE RATIO(10.0-20.0 RATIO) 32.0 RATIO June 26, 2015 6:24pm 41.0 RATIO June 27, 2015 3:40am 36.0 RATIO June 28, 2015 3:39am 36.0 RATIO June 29, 2015 5:45am SODIUM(135-145 MMOL/L) 137 MMOL/L June 26, 2015 6:24pm 136 MMOL/L June 27, 2015 3:40am 136 MMOL/L June 28, 2015 3:39am 135 MMOL/L June 29, 2015 5:45am POTASSIUM(3.6-5.0 MMOL/L) 3.8 MMOL/L June 26, 2015 6:24pm 4.0 MMOL/L June 27, 2015 3:40am 3.6 MMOL/L June 28, 2015 3:39am 3.7 MMOL/L June 29, 2015 5:45am CHLORIDE(101-111 MMOL/L) 96 MMOL/L June 26, 2015 6:24pm 102 MMOL/L June 27, 2015 3:40am 106 MMOL/L June 28, 2015 3:39am 107 MMOL/L June 29, 2015 5:45am 2027-10: CO2(21-31 MMOL/L) 24 MMOL/L June 26, 2015 6:24pm 26 MMOL/L June 27, 2015 3:40am 26 MMOL/L June 28, 2015 3:39am 24 MMOL/L June 29, 2015 5:45am ANION GAP(8-18) June 26, 2015 6:24pm June 27, 2015 3:40am June 28, 2015 3:39am June 29, 2015 5:45am OSMO CALCULATED(270.0-290.0) 282.8 June 26, 2015 6:24pm 278.0 June 27, 2015 3:40am 276.4 June 28, 2015 3:39am 273.8 June 29, 2015 5:45am CALCIUM(8.5-10.5 MG/DL) 9.6 MG/DL June 26, 2015 6:24pm 8.7 MG/DL June 27, 2015 3:40am 8.3 MG/DL June 28, 2015 3:39am 7.7 MG/DL June 29, 2015 5:45am BILIRUBIN,TOTAL(0.1-1.2 MG/DL) 2.1 MG/DL June 26, 2015 6:24pm 2.1 MG/DL June 27, 2015 3:40am 2.0 MG/DL June 28, 2015 3:39am 1.2 MG/DL June 29, 2015 5:45am ALKALINE PHOSPHATASE(42-121 IU/L) 62 IU/L June 26, 2015 6:24pm 53 IU/L June 27, 2015 3:40am 42 IU/L June 28, 2015 3:39am 49 IU/L June 29, 2015 5:45am ASPARTATE AMINO TRANSFERASE(10-42 IU/L) 42 IU/L June 26, 2015 6:24pm 31 IU/L June 27, 2015 3:40am 29 IU/L June 28, 2015 3:39am 65 IU/L June 29, 2015 5:45am ALANINE AMINOTRANSFERASE(10-60 IU/L) 24 IU/L June 26, 2015 6:24pm 23 IU/L June 27, 2015 3:40am 20 IU/L June 28, 2015 3:39am 29 IU/L June 29, 2015 5:45am TOTAL PROTEIN(6.4-8.2 G/DL) 8.7 G/DL June 26, 2015 6:24pm 7.1 G/DL June 27, 2015 3:40am 5.9 G/DL June 28, 2015 3:39am 6.0 G/DL June 29, 2015 5:45am ALBUMIN(3.5-5.5 G/DL) 4.3 G/DL June 26, 2015 6:24pm 3.6 G/DL June 27, 2015 3:40am 2.9 G/DL June 28, 2015 3:39am 2.8 G/DL June 29, 2015 5:45am GLOBULIN(2.4-3.6) 4.4 June 26, 2015 6:24pm 3.5 June 27, 2015 3:40am 3.0 June 28, 2015 3:39am 3.2 June 29, 2015 5:45am ALBUMIN/GLOBULIN RATIO(0.9-1.8 RATIO) 1.0 RATIO June 26, 2015 6:24pm 1.0 RATIO June 27, 2015 3:40am 1.0 RATIO June 28, 2015 3:39am 0.9 RATIO June 29, 2015 5:45am BASIC METABOLIC PANEL GLUCOSE(70-110 MG/DL) 123 MG/DL June 30, 2015 3:31pm BLOOD UREA NITROGEN(6-20 MG/DL) 20 MG/DL June 30, 2015 3:31pm CREATININE(0.50-1.20 MG/DL) 0.59 MG/DL June 30, 2015 3:31pm 69211-7: EST GLOMERULAR FILTRATION RATE(Greater than or equal to 60) Greater than or equal to 60 June 30, 2015 3:31pm Result Comments: If the patient is of -[place] descent/extraction multiply the eGFR value by 1.212 to obtain the actual eGFR. >=60 mg/dL Normal 30-59 mg/dL Moderate Kidney Disease 15-29 mg/dL Severe Kidney Disease <15 mg/dL Kidney Failure BUN CREATININE RATIO(10.0-20.0 RATIO) 34.0 RATIO June 30, 2015 3:31pm SODIUM(135-145 MMOL/L) 136 MMOL/L June 30, 2015 3:31pm POTASSIUM(3.6-5.0 MMOL/L) 3.6 MMOL/L June 30, 2015 3:31pm CHLORIDE(101-111 MMOL/L) 100 MMOL/L June 30, 2015 3:31pm 8-9: CO2(21-31 MMOL/L) 29 MMOL/L June 30, 2015 3:31pm ANION GAP(8-18) 11 June 30, 2015 3:31pm OSMO CALCULATED(270.0-290.0) 275.9 June 30, 2015 3:31pm CALCIUM(8.5-10.5 MG/DL) 7.8 MG/DL June 30, 2015 3:31pm 60292-0: RENAL PANEL GLUCOSE(70-110 MG/DL) 99 MG/DL June 30, 2015 5:45am 94 MG/DL July 01, 2015 7:00am 112 MG/DL July 02, 2015 7:00am 116 MG/DL July 03, 2015 6:35am 132 MG/DL July 05, 2015 6:37am BLOOD UREA NITROGEN(6-20 MG/DL) 21 MG/DL June 30, 2015 5:45am 18 MG/DL July 01, 2015 7:00am 14 MG/DL July 02, 2015 7:00am 12 MG/DL July 03, 2015 6:35am 14 MG/DL July 05, 2015 6:37am CREATININE(0.50-1.20 MG/DL) 0.57 MG/DL June 30, 2015 5:45am 0.64 MG/DL July 01, 2015 7:00am 0.62 MG/DL July 02, 2015 7:00am 0.65 MG/DL July 03, 2015 6:35am 0.66 MG/DL July 05, 2015 6:37am 12951-0: EST GLOMERULAR FILTRATION RATE(Greater than or equal to 60) Greater than or equal to 60 June 30, 2015 5:45am Result Comments: If the patient is of -[place] descent/extraction multiply the eGFR value by 1.212 to obtain the actual eGFR. >=60 mg/dL Normal 30-59 mg/dL Moderate Kidney Disease 15-29 mg/dL Severe Kidney Disease <15 mg/dL Kidney Failure Greater than or equal to 60 July 01, 2015 7:00am Result Comments: If the patient is of -[place] descent/extraction multiply the eGFR value by 1.212 to obtain the actual eGFR. >=60 mg/dL Normal 30-59 mg/dL Moderate Kidney Disease 15-29 mg/dL Severe Kidney Disease <15 mg/dL Kidney Failure Greater than or equal to 60 July 02, 2015 7:00am Result Comments: If the patient is of -[place] descent/extraction multiply the eGFR value by 1.212 to obtain the actual eGFR. >=60 mg/dL Normal 30-59 mg/dL Moderate Kidney Disease 15-29 mg/dL Severe Kidney Disease <15 mg/dL Kidney Failure Greater than or equal to 60 July 03, 2015 6:35am Result Comments: If the patient is of -[place] descent/extraction multiply the eGFR value by 1.212 to obtain the actual eGFR. >=60 mg/dL Normal 30-59 mg/dL Moderate Kidney Disease 15-29 mg/dL Severe Kidney Disease <15 mg/dL Kidney Failure Greater than or equal to 60 July 05, 2015 6:37am Result Comments: If the patient is of -[place] descent/extraction multiply the eGFR value by 1.212 to obtain the actual eGFR. >=60 mg/dL Normal 30-59 mg/dL Moderate Kidney Disease 15-29 mg/dL Severe Kidney Disease <15 mg/dL Kidney Failure SODIUM(135-145 MMOL/L) 136 MMOL/L June 30, 2015 5:45am 135 MMOL/L July 01, 2015 7:00am 134 MMOL/L July 02, 2015 7:00am 137 MMOL/L July 03, 2015 6:35am 133 MMOL/L July 05, 2015 6:37am POTASSIUM(3.6-5.0 MMOL/L) 3.4 MMOL/L June 30, 2015 5:45am 3.4 MMOL/L July 01, 2015 7:00am 4.1 MMOL/L July 02, 2015 7:00am 4.1 MMOL/L July 03, 2015 6:35am 4.3 MMOL/L July 05, 2015 6:37am CHLORIDE(101-111 MMOL/L) 101 MMOL/L June 30, 2015 5:45am 98 MMOL/L July 01, 2015 7:00am 99 MMOL/L July 02, 2015 7:00am 97 MMOL/L July 03, 2015 6:35am 93 MMOL/L July 05, 2015 6:37am 2027-10: CO2(21-31 MMOL/L) 30 MMOL/L June 30, 2015 5:45am 34 MMOL/L July 01, 2015 7:00am 32 MMOL/L July 02, 2015 7:00am 32 MMOL/L July 03, 2015 6:35am 35 MMOL/L July 05, 2015 6:37am CALCIUM(8.5-10.5 MG/DL) 7.7 MG/DL June 30, 2015 5:45am 7.8 MG/DL July 01, 2015 7:00am 7.7 MG/DL July 02, 2015 7:00am 8.2 MG/DL July 03, 2015 6:35am 8.5 MG/DL July 05, 2015 6:37am 11092-7: PHOSPHORUS(2.5-4.6 MG/DL) 2.3 MG/DL June 30, 2015 5:45am 2.0 MG/DL July 01, 2015 7:00am 2.9 MG/DL July 02, 2015 7:00am 3.1 MG/DL July 03, 2015 6:35am 3.6 MG/DL July 05, 2015 6:37am ALBUMIN(3.5-5.5 G/DL) 2.7 G/DL June 30, 2015 5:45am 2.7 G/DL July 01, 2015 7:00am 2.5 G/DL July 02, 2015 7:00am 2.7 G/DL July 03, 2015 6:35am 2.7 G/DL July 05, 2015 6:37am 01802-3: MAGNESIUM 70493-7: MAGNESIUM(1.8-2.5 MG/DL) 2.0 MG/DL June 27, 2015 3:40am 2.1 MG/DL June 30, 2015 5:45am 1.9 MG/DL July 01, 2015 7:00am 1.9 MG/DL July 02, 2015 7:00am 1.8 MG/DL July 03, 2015 6:35am 17975-5: PHOSPHORUS 52063-1: PHOSPHORUS(2.5-4.6 MG/DL) 3.2 MG/DL June 27, 2015 3:40am 3040-3: LIPASE 3040-3: LIPASE(22-51 U/L) 33 U/L June 26, 2015 6:24pm LACTIC ACID LACTIC ACID(0.0-2.2 MMOL/L) 1.9 MMOL/L June 27, 2015 3:40am THYROID STIMULATING HORMONE THYROID STIMULATING HORMONE(0.340-5.600 uIU/ML) 3.950 uIU/ML June 26, 2015 6: 24pm Microbiology Results Visit/Account #[id number] (June 26, 2015 6:02pm - July 05, 2015 7:56pm) Procedure Result BLOOD CULTURE BLOOD CULTURE Result Instance On June 26, 2015 8:45pm Source: BLOOD Special Result Comments: No growth Result Instance On June 26, 2015 8:48pm Source: BLOOD Special Result Comments: No growth 2334-1: GASTROCCULT 2334-1: GASTROCCULT Result Instance On June 26, 2015 6:45pm Source: EMESIS Result Prompts: GASTROCCULT POSITIVE Bloodbank Results Visit/Account #[id number] (June 26, 2015 6:02pm - July 05, 2015 7:56pm) Test Result ABO/RH O POSITIVE on June 26, 2015 6:30pm 80756-1: BLOOD TYPE ANTIBODY SCREEN NEGATIVE on June 26, 2015 6:30pm ANTIBODY SCREEN Allergies and Adverse Reactions Allergies and Adverse Reactions Patient Unit Number: [id number] Agent Type Reaction Severity Status IODINATED CONTRAST MEDIA - IV DYE Drug Allergy throat started to close Severe Active PENICILLINS Drug Allergy SICK AND RASH Moderate Active SULFASALAZINE Drug Allergy caused A-Fib Moderate Active INFLUENZA VIRUS VACC,SPECIFIC Drug Allergy sick for 3 months Moderate Active HYDROXYCHLOROQUINE Drug Allergy sores on legs, feet and mouth Severe Active Problem List Problem List Visit/Account #[id number] (June 26, 2015 6:02pm - July 05, 2015 7:56pm) Acute Problems: Code/Condition Comments Documented Start Documented Code(s) Date Resolved Date Sepsis ICD10: A41.9 Sepsis ICD9: 038.9 Sepsis SNOMED: [id number] Sepsis Bilateral pneumonia ICD10: J18.9 Bilateral pneumonia ICD9: 486 Bilateral pneumonia SNOMED: [id number] Bilateral pneumonia Gastric ulcer ICD10: K25.9 Gastric ulcer ICD9: 531.90 Gastric ulcer SNOMED: [id number] Gastric ulcer Hypertension ICD10: I10 Hypertension ICD9: 401.9 Hypertension SNOMED: 38559166 Hypertension Pleural effusion ICD10: J94.8 Pleural effusion ICD9: 511.9 Pleural effusion SNOMED: 26513073 Pleural effusion Urinary retention ICD10: R33.9 Retention of urine ICD9: 788.20 Retention of urine SNOMED: 716929151 Retention of urine Leukocytosis ICD10: D72.829 Leukocytosis ICD9: 288.60 Leukocytosis SNOMED: 461992720 Leukocytosis Upper GI bleed ICD10: K92.2 Upper gastrointestinal hemorrhage ICD9: 578.9 Upper gastrointestinal hemorrhage SNOMED: 65991631 Upper gastrointestinal hemorrhage SBO (small bowel obstruction) ICD10: K56.69 Small bowel obstruction ICD9: 560.9 Small bowel obstruction SNOMED: 577646445 Small bowel obstruction Hematemesis ICD10: K92.0 Hematemesis ICD9: 578.0 Hematemesis SNOMED: 2968788 Hematemesis Chronic Problems: Atrial fibrillation ICD10: I48.91 Atrial fibrillation ICD9: 427.31 Atrial fibrillation SNOMED: 25330245 Atrial fibrillation Rheumatoid arthritis ICD10: M06.9 Rheumatoid arthritis ICD9: 714.0 Rheumatoid arthritis SNOMED: 45074835 Rheumatoid arthritis AAA (abdominal aortic aneurysm) without rupture ICD10: I71.4 Abdominal aortic aneurysm without rupture ICD9: 441.4 Abdominal aortic aneurysm without rupture SNOMED: 54788353 Abdominal aortic aneurysm without rupture Patient Unit Number: [id number] Chronic Problems: Code/Condition Comments Documented Start Documented Code(s) Date Resolved Date Chronic constipation ICD10: K59.00 Chronic constipation ICD9: 564.00 Chronic constipation SNOMED: 977365679 Chronic constipation Urinary frequency ICD10: R35.0 Increased frequency of urination ICD9: 788.41 Increased frequency of urination SNOMED: 493682184 Increased frequency of urination Plan of Care Plan Of Care Visit/Account #[id number] (June 26, 2015 6:02pm - July 05, 2015 7:56pm) Patient Instructions Instructions DI for Small Bowel Resection DI for Urinary Retention in Men Warfarin Tamsulosin Vital Signs Vital Signs Visit/Account #[id number] (June 26, 2015 6:02pm - July 05, 2015 7:56pm) Sign First Result Last Result Code(s) Blood Pressure 133/ 69 mm[Hg] On June 26, 2015 9:52pm 105/ 60 mm[Hg] On June 2:00pm 8480-6 BP Systolic Heart Rate/Pulse Pulse Rate (adult): 105 /min On June 26, 2015 9:52pm Pulse Rate (adult): 80 /min On July 05, 2015 2:00pm 8867-4 Heart Rate 8893-0 Pulse rate Respiratory Rate Respiratory Rate: 37 /min On June 26, 2015 9:52pm Respiratory Rate: 18 /min On July 05, 2015 2:00pm 9279-1 Respiratory rate Temperature in Fahrenheit Temperature (Fahrenheit): 96.4 [degF] On June 26, 2015 5:58pm Temperature (Fahrenheit): 97.9 [degF] On July 05, 2015 2:00pm 8310 -5 Body Temperature Weight in Kilograms Weight (Kilograms): 123.6 kg On June 26, 2015 5:58pm 3141-9 Weight Measured 98935-9 Body weight measured in kilograms Functional Status Functional and Cognitive Status No Functional Status Data Medications Home Medications - Medications that the patient was taking prior to arrival at the hospital Visit/Account #[id number] (June 26, 2015 6:02pm - July 05, 2015 7:56pm) Medication Route Sig/Schedule Precondition/Indication Comments/ Instructions Codes COUMADIN(WARFARIN SODIUM) 5 MG TAB ORAL SuMoWeFrSa@1800 Warfarin Sodium 5 MG Oral Tablet [Coumadin] (RxNorm): 153812 Dose: 5 MG COUMADIN (WARFARIN SODIUM) NDC: 11947536957 COUMADIN(WARFARIN SODIUM) 7.5 MG TAB ORAL TuTh@1800 Warfarin Sodium 7.5 MG Oral Tablet [Coumadin] (RxNorm): 124345 Dose: 7.5 MG COUMADIN (WARFARIN SODIUM) NDC: 19927873024 Bumetanide(BUMETANIDE) 2 MG TABLET ORAL WEEKLY ON SUNDAY Bumetanide 2 MG Oral Tablet (RxNorm): 397440 Dose: 2 MG Bumetanide (BUMETANIDE) NDC: 39305281658 VITAMIN B COMPLEX(VITAMIN B COMPLEX) 1 EACH TABLET ORAL DAILY VITAMIN B COMPLEX (VITAMIN B COMPLEX) NDC: 73718978391 Dose: 2 TAB Coq-10(UBIDECARENONE/OMEGA-3/VIT E) 100 MG CAPSULE ORAL DAILY Coq-10 ( UBIDECARENONE/OMEGA-3/VIT E) NDC: 97124925931 Dose: 200 MG Vitamin D3(CHOLECALCIFEROL (VITAMIN D3)) 5000 UNIT TABLET ORAL DAILY Vitamin D3 (CHOLECALCIFEROL (VITAMIN D3)) NDC: 45024375794 Dose: 5000 UNIT Folic Acid(FOLIC ACID) 400 MCG TAB ORAL DAILY Folic Acid (FOLIC ACID) NDC: 56778007110 Dose: 1200 MCG MILK OF MAGNESIA(MAGNESIUM HYDROXIDE) 400 MG/5 ML ORAL.SUSP ORAL DAILY CONSTIPATION Magnesium Hydroxide 80 MG/ML Oral Suspension (RxNorm): 495267 Dose: 30 ML MILK OF MAGNESIA (MAGNESIUM HYDROXIDE) NDC: 33394117190 CALCIUM 600 MG PLUS VIT D TAB(CALC/D3/MAG/ZN/TISSUE TECHNOLOGIST/SAUL/BORON) 1 EACH TABLET ORAL TWICE A DAY CALCIUM 600 MG PLUS VIT D TAB (CALC/D3/MAG/ZN/TISSUE TECHNOLOGIST/SAUL/ BORON) NDC: 99605580673 Dose: 2 EACH Aspirin Low Dose(ASPIRIN) 81 MG TABLET.DR ORAL DAILY Aspirin 81 MG Delayed Release Oral Tablet (RxNorm): 372094 Dose: 81 MG Aspirin Low Dose (ASPIRIN) NDC: 38132238823 VITAMIN C(ASCORBIC ACID) 500 MG TAB.CHEW ORAL DAILY Ascorbic Acid 500 MG Chewable Tablet (RxNorm): 102005 Dose: 1000 MG VITAMIN C (ASCORBIC ACID) NDC: 13063773357 PROBIOTIC(LACTOBACILLUS COMBO NO.11) 1 EACH CAP.SPRINK ORAL TWICE A DAY PROBIOTIC (LACTOBACILLUS COMBO NO.11) NDC: 34600444669 Dose: 1 EACH DIGESTIVE ENZYMES(ENZYMES,DIGESTIVE) 1 EACH CAPSULE ORAL DAILY DIGESTIVE ENZYMES (ENZYMES,DIGESTIVE) NDC: 55429087295 Dose: 1 EACH METHOTREXATE SODIUM(MethoTREXATE SODIUM) 2.5 MG TABLET ORAL Mondays Methotrexate 2.5 MG Oral Tablet (RxNorm): 071380 Dose: 15 MG METHOTREXATE SODIUM (MethoTREXATE SODIUM) NDC: 89275827887 NORCO 7.5-325 TABLET(HYDROcodone BIT/ACETAMINOPHEN) 1 EACH TABLET ORAL EVERY 4 HOURS PAIN Acetaminophen 325 MG / Hydrocodone Bitartrate 7.5 MG Oral Tablet [Albers] (RxNorm): 694583 Dose: 1-2 TAB NORCO 7.5-325 TABLET (HYDROcodone BIT/ACETAMINOPHEN) NDC: 17372013191 CLEOCIN(CLINDAMYCIN HCL) 150 MG CAP ORAL 3 TIMES A DAY Clindamycin 150 MG Oral Capsule (RxNorm): 323500 Dose: 150 MG CLEOCIN (CLINDAMYCIN HCL) NDC: 99139067173 Inpatient/Ordered Medications - Medications administered during hospital visit Visit/Account #[id number] (June 26, 2015 6:02pm - July 05, 2015 7:56pm) Medication Route Sig/Schedule Precondition/Indication Comments/ Instructions Codes ZOFRAN INJ(ONDANSETRON HCL) 4 MG/2 ML INJECTION Route .STK-MED Ondansetron 2 MG/ML Injectable Solution (RxNorm): 701930 Dose: 4 MG ZOFRAN INJ (ONDANSETRON HCL) NDC: 50867291672 PROTONIX INJ(PANTOPRAZOLE) 40 MG INJECTION INTRAVEN NOW Label Comments: pantoprazole 4 MG/ML Injectable Solution [Protonix] (RxNorm): 019431 Dose: 80 MG DILUTE WITH 10 ML OF NORMAL SALINE. GIVE OVER 2 MINUTES. PROTONIX INJ (PANTOPRAZOLE) NDC: 82926632040 IV Medication INTRAVEN Q10H (Rate: 10 MLS/HR Duration: 10 HR) Label Comments: Additives: CONC=0.8 MG/ML Additives: 72 HR INFUSION pantoprazole 4 MG/ML Injectable Solution [ Protonix] (RxNorm): 773370 PROTONIX INJ(PANTOPRAZOLE) 40 MG INJECTION PROTONIX INJ (PANTOPRAZOLE ) NDC: 42593953760 Dose: 80 MG Carriers: Carriers: Sodium Chloride 0.154 MEQ/ML Injectable Solution (RxNorm): 188750 SODIUM CHLORIDE 100 ML INJECTION Dose: 100 ML (SODIUM CHLORIDE) NDC: 31919685313 SUBLIMAZE INJ(FentaNYL CITRATE) 100 MCG/2 ML INJECTION Route .STK-MED Fentanyl 0.05 MG/ML Injectable Solution (RxNorm): 118673 Dose: 100 MCG SUBLIMAZE INJ (FentaNYL CITRATE) NDC: 40387627479 ZOFRAN INJ(ONDANSETRON HCL) 4 MG/2 ML INJECTION Route .STK-MED Ondansetron 2 MG/ML Injectable Solution (RxNorm): 513245 Dose: 4 MG ZOFRAN INJ (ONDANSETRON HCL) NDC: 94816553456 IV Medication INTRAVEN NOW (Rate: 404 MLS/HR Duration: 15 MIN) Additives : Additives: Promethazine Hydrochloride 25 MG/ML Injectable Solution ( RxNorm): 124621 PHENERGAN INJ(PROMETHAZINE HCL) 25 MG/ML INJECTION PHENERGAN INJ ( PROMETHAZINE HCL) NDC: 44113843180 Dose: 25 MG Carriers: Carriers: Sodium Chloride 0.154 MEQ/ML Injectable Solution (RxNorm): 661887 SODIUM CHLORIDE 100 ML INJECTION Dose: 100 ML (SODIUM CHLORIDE) NDC: 28718676622 ZOFRAN INJ(ONDANSETRON HCL) 4 MG/2 ML INJECTION Route .STK-MED Ondansetron 2 MG/ML Injectable Solution (RxNorm): 473050 Dose: 4 MG ZOFRAN INJ (ONDANSETRON HCL) NDC: 56250729441 IV Medication INTRAVEN .Q8H (Rate: 125 MLS/HR Duration: 8 HR) Carriers: Carriers: Sodium Chloride 0.154 MEQ/ML Injectable Solution (RxNorm): 272377 NORMAL SALINE(SODIUM CHLORIDE) 1000 ML INJECTION NORMAL SALINE ( SODIUM CHLORIDE) NDC: 48238262408 Dose: 1000 ML IV Medication INTRAVEN Q24H (Rate: 100 MLS/HR Duration: 1 HR 30 MIN) Clinical Indication: ABX non-surgical pt Label Comments: Carriers: Do NOT refrigerate. Carriers: 150 ML Levofloxacin 5 MG/ML Injection (RxNorm): 8893787 LEVAQUIN 750 MG/150 ML(LEVOFLOXACIN/DEXTROSE) 750 MG/150 ML INJECTION LEVAQUIN 750 MG/150 ML (LEVOFLOXACIN/DEXTROSE) NDC: 95727795237 Dose: 150 ML MORPHINE SULFATE 4 MG/ML INJECTION INTRAVEN NOW Label Comments: 1 ML Morphine Sulfate 4 MG/ML Prefilled Syringe (RxNorm): 924920 Dose: 1 ML MAY INCREASE FALL RISK (MORPHINE SULFATE) NDC: 28542680937 VERSED INJ(MIDAZOLAM HCL) 5 MG/5 ML INJECTION INTRAVEN .CHARLI PRN Reason: ANXIETY/AGITATION Label Comments: VERSED INJ (MIDAZOLAM HCL) NDC: 14719840971 Dose: 0 ML MAY INCREASE FALL RISK Special Dose Instructions: see above IV Medication INTRAVEN Q8S (Rate: 100 MLS/HR Duration: 30 MIN) Clinical Indication: ABX non-surgical pt Label Comments: Additives: REFRIGERATE IMMEDIATELY Additives: Expires in 24 hours @ meropenem 50 MG/ML Injectable Solution [Merrem] (RxNorm): 254776 MERREM INJ(MEROPENEM) 1 GM INJECTION MERREM INJ (MEROPENEM) NDC: 82405858079 Dose: 1 GM Carriers: Carriers: Sodium Chloride 0.154 MEQ/ML Injectable Solution (RxNorm): 306458 SODIUM CHLORIDE 50 ML INJECTION Dose: 50 ML (SODIUM CHLORIDE) NDC: 14200502845 ZOFRAN INJ(ONDANSETRON HCL) 4 MG/2 ML INJECTION INTRAVEN Q6H PRN Reason: NAUSEA/VOMITING Label Comments: Ondansetron 2 MG/ML Injectable Solution ( RxNorm): 761756 Dose: 2 ML SLOW IV PUSH MAY INCREASE FALL RISK ZOFRAN INJ (ONDANSETRON HCL) NDC: 21525962921 IV Medication INTRAVEN .Q2H (Rate: 500 MLS/HR Duration: 2 HR) Label Comments: Carriers: Give over 2 hours Carriers: Sodium Chloride 0.154 MEQ/ML Injectable Solution (RxNorm): 068000 NORMAL SALINE(SODIUM CHLORIDE) 1000 ML INJECTION NORMAL SALINE ( SODIUM CHLORIDE) NDC: 07267212249 Dose: 1000 ML MORPHINE SULFATE 4 MG/ML INJECTION INTRAVEN Q1H PRN Reason: SEVERE PAIN Label Comments: 1 ML Morphine Sulfate 4 MG/ML Prefilled Syringe (RxNorm): 670319 Dose: 0 ML MAY INCREASE FALL RISK (MORPHINE SULFATE) NDC: 03343896724 Special Dose Instructions: 1-4 MG SWIZZLE (XYLOCAINE/ BENADRYL/ MAALOX PL)(LIDOCAINE/DIPHENHY/ALUM/MG/SIM) 100 ML SOLUTION ORAL 4 TIMES DAILY PRN Reason: SORE THROAT Special Dose Instructions: Dose: 5 ML SWISH AND SWALLOW IV Medication INTRAVEN .Q6H44M (Rate: 14.856 MLS/HR Duration: 6 HR 44 MIN) PRN Reason: SEDATION Label Comments: Carriers: *Propofol Protocol* Start at 5 mcg/kg/min unless Carriers: receiving concurrent narcotic drip and/or Propofol 10 MG/ML Injectable Suspension [Diprivan] (RxNorm): 876978 sedatives then start at 2.5 mcg/kg/min. Titrate DIPRIVAN INJ(PROPOFOL) 1000 MG/100 ML INJECTION dose 5-10 mcg/kg/min every 5-10 minutes to reach DIPRIVAN INJ (PROPOFOL) NDC: 34947386738 Dose: 100 ML desired level of sedation. use within 6 hours of opening container (this med restricted to the Critical Care Unit) IV Medication INTRAVEN .Q0M (Rate: 0 MLS/HR Duration: 0 SEC) PRN Reason: CONTINUOUS IV Label Comments: Carriers: infusion rate: 75 mcg/hour Carriers: CONC=5 MCG/ML Fentanyl 0.005 MG/ML Injectable Solution ( RxNorm): 044888 MAY INCREASE FALL RISK FENTANYL CITRATE-0.9 % NACL/PF 1250 MCG/250 ML INJECTION (FENTANYL CITRATE-0.9 % NACL/PF) NDC: 42569003831 Dose: 250 ML VITAMIN K(PHYTONADIONE) 5 MG TAB NG TUBE NOW Vitamin K 1 5 MG Oral Tablet [Mephyton] (RxNorm): 667040 Dose: 5 MG VITAMIN K (PHYTONADIONE) NDC: 94579090329 IV Medication INTRAVEN .Q10H (Rate: 100 MLS/HR Duration: 10 HR) Carriers : Carriers: Sodium Chloride 0.154 MEQ/ML Injectable Solution (RxNorm): 085179 NORMAL SALINE(SODIUM CHLORIDE) 1000 ML INJECTION NORMAL SALINE ( SODIUM CHLORIDE) NDC: 04938964669 Dose: 1000 ML PROTONIX INJ(PANTOPRAZOLE) 40 MG INJECTION INTRAVEN TWICE A DAY Label Comments: pantoprazole 4 MG/ML Injectable Solution [Protonix] (RxNorm): 905588 Dose: 40 MG DILUTE WITH 10 ML OF NORMAL SALINE. GIVE OVER 2 MINUTES. PROTONIX INJ (PANTOPRAZOLE) NDC: 23558913768 LOPRESSOR INJ(METOPROLOL TARTRATE) 5 MG/5 ML INJECTION INTRAVEN Q6H Label Comments: Metoprolol Tartrate 1 MG/ML Injectable Solution (RxNorm): 619585 Dose: 10 ML MAY INCREASE FALL RISK LOPRESSOR INJ (METOPROLOL TARTRATE) NDC: 74678237734 NORCO 7.5-325(HYDROcodone BIT/ACETAMINOPHEN) 1 TAB TAB ORAL Q4H PRN Reason: MODERATE PAIN Label Comments: Acetaminophen 325 MG / Hydrocodone Bitartrate 7.5 MG Oral Tablet (RxNorm): 897769 Dose: 0 TAB <<may be substituted for 7.5/500>> REC MAX DAILY ACETAMINOPHEN: 4000 MG/24 HR NORCO 7.5-325 (HYDROcodone BIT/ACETAMINOPHEN) NDC: 06885200620 MAY INCREASE FALL RISK Special Dose Instructions: 1-2 TABS BUMEX INJ(BUMETANIDE) 1 MG/4 ML INJECTION INTRAVEN NOW Label Comments: Bumetanide 0.25 MG/ML Injectable Solution (RxNorm): 630298 Dose: 4 ML PROTECT FROM LIGHT MAY INCREASE FALL RISK BUMEX INJ (BUMETANIDE) NDC: 07039392708 LOPRESSOR(METOPROLOL TARTRATE) 50 MG TAB ORAL TWICE A DAY Label Comments: Metoprolol Tartrate 50 MG Oral Tablet [Lopressor] (RxNorm): 776775 Dose: 50 MG MAY INCREASE FALL RISK LOPRESSOR (METOPROLOL TARTRATE) NDC: 41119082658 BUMEX INJ(BUMETANIDE) 1 MG/4 ML INJECTION INTRAVEN NOW Label Comments: Bumetanide 0.25 MG/ML Injectable Solution (RxNorm): 310896 Dose: 4 ML PROTECT FROM LIGHT MAY INCREASE FALL RISK BUMEX INJ (BUMETANIDE) NDC: 99778631815 IV Medication INTRAVEN NOW (Rate: 127.5 MLS/HR Duration: 4 HR) Additives : Additives: Dibasic potassium phosphate 1.66 MEQ/ML / Monobasic potassium phosphate 1.65 MEQ/ML Injectab (RxNorm): 5934516 KPHOS INJ(POTASSIUM PHOSPHATE) 3 MMOL/1 ML INJECTION KPHOS INJ ( POTASSIUM PHOSPHATE) NDC: 89560934052 Dose: 30 MMOL Carriers: Carriers: Sodium Chloride 0.154 MEQ/ML Injectable Solution (RxNorm): 822785 SODIUM CHLORIDE 500 ML INJECTION Dose: 500 ML (SODIUM CHLORIDE) NDC: 07438925109 LOPRESSOR(METOPROLOL TARTRATE) 25 MG TAB ORAL TWICE A DAY Label Comments: Metoprolol Tartrate 25 MG Oral Tablet (RxNorm): 928057 Dose: 25 MG MAY INCREASE FALL RISK LOPRESSOR (METOPROLOL TARTRATE) NDC: 96286720835 K-DUR(POTASSIUM CHLORIDE) 20 MEQ TAB ORAL NOW Label Comments: Potassium Chloride 20 MEQ Extended Release Oral Tablet [Klor-Con] (RxNorm): 136947 Dose: 40 MEQ TAKE WITH FOOD TO AVOID GI UPSET K-DUR (POTASSIUM CHLORIDE) NDC: 48316145601 BUMEX(BUMETANIDE) 1 MG TAB ORAL DAILY Label Comments: Bumetanide 1 MG Oral Tablet (RxNorm): 294840 Dose: 1 MG MAY INCREASE FALL RISK BUMEX (BUMETANIDE) NDC: 30859201283 K-DUR(POTASSIUM CHLORIDE) 20 MEQ TAB ORAL DAILY AT [facility] Label Comments: Potassium Chloride 20 MEQ Extended Release Oral Tablet [Klor-Con] (RxNorm): 390735 Dose: 40 MEQ TAKE WITH FOOD TO AVOID GI UPSET K-DUR (POTASSIUM CHLORIDE) NDC: 04716813405 IV Medication INTRAVEN NOW (Rate: 42.778 MLS/HR Duration: 6 HR) Additives: Additives: Dibasic potassium phosphate 1.66 MEQ/ML / Monobasic potassium phosphate 1.65 MEQ/ML Injectab (RxNorm): 0778981 KPHOS INJ(POTASSIUM PHOSPHATE) 3 MMOL/1 ML INJECTION KPHOS INJ ( POTASSIUM PHOSPHATE) NDC: 30584772799 Dose: 20 MMOL Carriers: Carriers: Sodium Chloride 0.154 MEQ/ML Injectable Solution (RxNorm): 163995 NORMAL SALINE(SODIUM CHLORIDE) 250 ML INJECTION Dose: 250 ML NORMAL SALINE (SODIUM CHLORIDE) NDC: 36701241653 DELTASONE(PredniSONE) 10 MG TAB ORAL AT BEDTIME Label Comments: {10 ( Prednisone 10 MG Oral Tablet) } Pack (RxNorm): 120311 Dose: 10 MG TAKE WITH FOOD OR MILK DELTASONE (PredniSONE) NDC: 80191528111 LOVENOX(ENOXAPARIN) 30 MG/0.3 ML INJECTION SUBCUTANEOUSLY BID@07,19 Label Comments: 0.3 ML Enoxaparin sodium 100 MG/ML Prefilled Syringe [Lovenox] ( RxNorm): 959095 Dose: 0.3 ML INJECT SC INTO ABDOMINAL WALL ONLY. LOVENOX (ENOXAPARIN) NDC: 21926498991 COUMADIN(WARFARIN SOD) 5 MG TAB ORAL DAILY@18 Warfarin Sodium 5 MG Oral Tablet [Coumadin] (RxNorm): 854358 Dose: 5 MG COUMADIN (WARFARIN SOD) NDC: 35410524796 SENOKOT(SENNA) 1 TAB TAB ORAL EVERY 6 HOURS PRN Reason: CONSTIPATION sennosides, PRISON 8.6 MG Oral Tablet (RxNorm): 981493 Dose: 1 TAB SENOKOT (SENNA) NDC: 57770869314 BUMEX INJ(BUMETANIDE) 1 MG/4 ML INJECTION INTRAVEN BID@ Label Comments: Bumetanide 0.25 MG/ML Injectable Solution (RxNorm): 408138 Dose: 4 ML PROTECT FROM LIGHT MAY INCREASE FALL RISK BUMEX INJ (BUMETANIDE) NDC: 48125298313 DULCOLAX(BISACODYL) 10 MG SUPPOSITORY RECTALLY NOW Special Dose Instructions: Bisacodyl 10 MG Rectal Suppository [Bisac-Evac] (RxNorm): 778868 Dose: 10 MG repeat in 4hr if no result DULCOLAX (BISACODYL) NDC: 53167387163 MIRALAX(POLYETHYLENE GLYCOL) 17 GM POWDER ORAL TWICE A DAY Label Comments : POLYETHYLENE GLYCOL 3350 142 MG/ML Oral Solution [Miralax] (RxNorm): 358251 Dose: 17 GM DISSOLVE IN 8 OZ OF WATER MIRALAX (POLYETHYLENE GLYCOL) NDC: 16140864796 BUMEX(BUMETANIDE) 1 MG TAB ORAL BID@ Label Comments: Bumetanide 1 MG Oral Tablet (RxNorm): 654837 Dose: 1 MG MAY INCREASE FALL RISK BUMEX (BUMETANIDE) NDC: 59025446626 PROTONIX(PANTOPRAZOLE SOD) 40 MG TAB ORAL 60 MIN BEFORE BKFST & SUPPER pantoprazole 40 MG Delayed Release Oral Tablet [Protonix] (RxNorm): 172488 Dose: 40 MG PROTONIX (PANTOPRAZOLE SOD) NDC: 58643571423 Discharge Medications - Medications that patient should continue to take. Review with physician Visit/Account #[id number] (June 26, 2015 6:02pm - July 05, 2015 7:56pm) Medication Route Sig/Schedule Precondition/Indication Comments/ Instructions Codes COUMADIN(WARFARIN SODIUM) 5 MG TAB ORAL SuMoWeFrSa@1800 Warfarin Sodium 5 MG Oral Tablet [Coumadin] (RxNorm): 048835 Dose: 5 MG COUMADIN (WARFARIN SODIUM) NDC: 66611597071 COUMADIN(WARFARIN SODIUM) 7.5 MG TAB ORAL TuTh@1800 Warfarin Sodium 7.5 MG Oral Tablet [Coumadin] (RxNorm): 985696 Dose: 7.5 MG COUMADIN (WARFARIN SODIUM) NDC: 49586896535 Vitamin D3(CHOLECALCIFEROL (VITAMIN D3)) 5000 UNIT TABLET ORAL DAILY Vitamin D3 (CHOLECALCIFEROL (VITAMIN D3)) NDC: 57282120618 Dose: 5000 UNIT MILK OF MAGNESIA(MAGNESIUM HYDROXIDE) 400 MG/5 ML ORAL.SUSP ORAL DAILY CONSTIPATION Magnesium Hydroxide 80 MG/ML Oral Suspension (RxNorm): 650832 Dose: 30 ML MILK OF MAGNESIA (MAGNESIUM HYDROXIDE) NDC: 30017682391 CALCIUM 600 MG PLUS VIT D TAB(CALC/D3/MAG/ZN/TISSUE TECHNOLOGIST/SAUL/BORON) 1 EACH TABLET ORAL TWICE A DAY CALCIUM 600 MG PLUS VIT D TAB (CALC/D3/MAG/ZN/TISSUE TECHNOLOGIST/SAUL/ BORON) NDC: 07645564164 Dose: 2 EACH VITAMIN C(ASCORBIC ACID) 500 MG TAB.CHEW ORAL DAILY Ascorbic Acid 500 MG Chewable Tablet (RxNorm): 665804 Dose: 1000 MG VITAMIN C (ASCORBIC ACID) NDC: 03432195355 Deltasone(PREDNISOLONE, MICRONIZED) 5 MG TABLET ORAL DAILY Prednisone 5 MG Oral Tablet (RxNorm): 035913 Dose: 10 MG Deltasone (PREDNISOLONE, MICRONIZED) NDC: 58547742587 TYLENOL(ACETAMINOPHEN) 500 MG TAB ORAL EVERY 6 HOURS PAIN Rx Instructions: Acetaminophen 500 MG Oral Tablet [Mapap] (RxNorm): 935696 Dose: 500-1000 MG 500 - 1000 MG TYLENOL (ACETAMINOPHEN) NDC: 36365829357 FLOMAX(TAMSULOSIN HCL) 0.4 MG CAP ORAL DAILY Tamsulosin hydrochloride 0.4 MG Oral Capsule [Flomax] (RxNorm): 559386 Dose: 0.4 MG FLOMAX (TAMSULOSIN HCL) NDC: 85422638607 BUMEX(BUMETANIDE) 0.5 MG TAB ORAL Sunday, Sun, and Sun swelling / edema Bumetanide 0.5 MG Oral Tablet (RxNorm): 629060 Dose: 0.5 MG BUMEX (BUMETANIDE) NDC: 78584500330 ULTRAM(TraMADol HCL) 50 MG TABLET ORAL EVERY 6 HOURS PAIN tramadol hydrochloride 50 MG Oral Tablet [Ultram] (RxNorm): 778450 Dose: 100 MG ULTRAM (TraMADol HCL) NDC: 34365422157 History Of Encounters Encounters Visit/Account #[id number] (June 26, 2015 6:02pm - July 05, 2015 7:56pm) Account Physican Of Reason For Visit Diagnosis Start Stop Date/Time Status Record Visit Date/Time ER EDISON CUMMINGS DO AAA(ABDOMINAL AORTIC ANEURYSM) WITHOUT RUPTURE K92.0: HEMATEMESIS ICD10 June 26, 2015 6:02pm June 26, 2015 9:29pm IN ARASELI DELGADO MD AAA(ABDOMINAL AORTIC ANEURYSM) WITHOUT RUPTURE K92.0: HEMATEMESIS ICD10 June 26, 2015 8:13pm July 05, 2015 7:56pm History of Procedures Procedure List Visit/Account #[id number] (June 26, 2015 6:02pm - July 05, 2015 7:56pm) Code/Procedure Date [id number]: EXCISION OF SMALL INTESTINE, OPEN APPROACH June 27, 2015 [id number]: RELEASE SMALL INTESTINE, OPEN APPROACH June 27, 2015 [id number]: RESPIRATORY VENTILATION, LESS THAN 24 CONSECUTIVE HOURS June 27, 2015 Discharge Instructions Discharge Instructions Visit/Account #[id number] (June 26, 2015 6:02pm - July 05, 2015 7:56pm) DISCHARGE INSTRUCTIONS Physician Documentation PROVIDER INSTRUCTIONS Discharge Diet Regular Discharge Activity/Weight Bearing Status no activity restrictions walk as much as possible Discharge Diet Regular Discharge Activity/Weight Bearing Status no activity restrictions walk as much as possible WOUND/INCISION/CATHETER CARE Incision/Wound Care treat as normal skin ok to shower and wash cover with gauze and tape if needed expect some redness at manda FOLLOW UP APPOINTMENTS Follow Up With Dr. Delgado in 10-14 days for staple removal APPOINTMENT SundayJune AT 1:30PM Dr. Harry Hebert (Urology) in 1-2 weeks for Sigala cathter evaluation / removal and consultation for urinary retention APPOINTMENT SundayJuly AT 8:45AM Social History Social History No Social History Data. Immunizations Immunizations Patient Unit Number: [id number] Immunizations No immunizations recorded.
--- OUTSIDE RECORDS SUMMARY | 2017-03-15 16:12 | External Medical Summary | Summary of Care ---
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: Active Squamous cell carcinoma [...] 250 MG Oral Tablet Refills: 0 Start -Jan-2015 Active Vitamin D3 1000 UNIT Oral Capsule Refills: 0 Start -Jan-2015 Active Ascorbic Acid 1000 MG Oral Tablet [...] to report Results Date Description Value Details 22-Mar-2016 15:38 ULTRASOUND LEG VEINS RIGHT Comments: Exam Date: 03/22/2016 15:03Dictation Date: 03/22/2016 15:38 XS LEG VEINS RIGHT Plan of Care Name Dates Details Planned Observations Planned Goals not documented Planned Encounters Appointment; Provider: Wendy Guadarrama On 10-May-2016 15:15 Instructions Name Dates Details Instructions not documented Encounters Appointment; Chrissy Chen P.A. On 22-Mar-2016 Encounter [...]
--- OUTSIDE RECORDS SUMMARY | 2017-03-15 16:12 | External Medical Summary | Continuity Of Care Document ---
:1940 Author Organization [facility] Address [address] [place] [address] Phone Care Team Providers Name Role Phone YOUNG SINCLAIR DO Attending Provider MATHEUS JAMES, CAMERON Mike Consulting Provider BRENDEN JAMES, TEJAS Dos Santos Consulting Provider WILLIAM JAMES, RYAN Wagner Admitting Provider CORY JAMES, JOHN Gay Unavailable AMANDA JAMES, ZENAIDA Vital Primary Care Provider Results Lab Results Visit/Account #[id number] (April 19, 2016 7:42pm - April 26, 2016 2:06pm) Test Result Date/Time 15629-0: COMPLETE BLOOD COUNT WITH DIFF WHITE BLOOD COUNT(4.0-11.0 10E3/UL) 12.9 10E3/UL April 19, 2016 7:50pm 10.3 10E3/UL April 26, 2016 6:57am RED BLOOD COUNT(4.50-5.90 10E6/UL) 4.93 10E6/UL April 19, 2016 7:50pm 4.42 10E6/UL April 26, 2016 6:57am HEMOGLOBIN(13.5-17.5 G/DL) 15.0 G/DL April 19, 2016 7:50pm 13.3 G/DL April 26, 2016 6:57am HEMATOCRIT(41.0-53.0 %) 47.2 % April 19, 2016 7:50pm 43.1 % April 26, 2016 6:57am 57459-0: MEAN CORPUSCULAR VOLUME(82.0-100.0 FL) 95.7 FL April 19, 2016 7:50pm 97.5 FL April 26, 2016 6:57am 46125-0: MEAN CORPUSCULAR HEMOGLOBIN(26.0-34.0 PG) 30.4 PG April 19, 2016 7: 50pm 30.1 PG April 26, 2016 6:57am MEAN CORPUSCULAR HGB CONC(31.5-36.5 G/DL) 31.8 G/DL April 19, 2016 7:50pm 30.9 G/DL April 26, 2016 6:57am RED CELL DISTRIBUTION WIDTH(11.5-14.5 %) 16.1 % April 19, 2016 7:50pm 15.6 % April 26, 2016 6:57am 777-3: PLATELET COUNT(150-450 10E3/UL) 224 10E3/UL April 19, 2016 7:50pm 208 10E3/UL April 26, 2016 6:57am MEAN PLATELET VOLUME(8.2-12.4 FL) 10.0 FL April 19, 2016 7:50pm 9.7 FL April 26, 2016 6:57am 770-8: NEUTROPHILS % (AUTO)(40-70 %) 87 % April 19, 2016 7:50pm 82 % April 26, 2016 6:57am LYMPHOCYTES % (AUTO)(15-45 %) 3 % April 19, 2016 7:50pm 6 % April 26, 2016 6:57am 5905-5: MONOCYTES % (AUTO)(2-10 %) 6 % April 19, 2016 7:50pm 5 % April 26, 2016 6:57am 713-8: EOSINOPHILS % (AUTO)(0-6 %) 1 % April 19, 2016 7:50pm 1 % April 26, 2016 6:57am 706-2: BASOPHILS % (AUTO)(0-1 %) 1 % April 19, 2016 7:50pm 1 % April 26, 2016 6:57am 97912-8: IMMATURE GRANS % (AUTO)(0-0 %) 3 % April 19, 2016 7:50pm 5 % April 26, 2016 6:57am NUCLEATED RBCS (AUTO)(0-0 %) 0 % April 19, 2016 7:50pm 0 % April 26, 2016 6:57am 751-8: NEUTROPHILS # (AUTO)(2.5-7.5 10E3/UL) 11.3 10E3/UL April 19, 2016 7: 50pm 8.4 10E3/UL April 26, 2016 6:57am 12822-5: LYMPHOCYTES # (AUTO)(1.0-4.0 10E3/UL) 0.4 10E3/UL April 19, 2016 7: 50pm 0.6 10E3/UL April 26, 2016 6:57am 742-7: MONOCYTES # (AUTO)(0.2-0.8 10E3/UL) 0.8 10E3/UL April 19, 2016 7:50pm 0.6 10E3/UL April 26, 2016 6:57am 711-2: EOSINOPHILS # (AUTO)(0.0-0.4 10E3/UL) 0.1 10E3/UL April 19, 2016 7:50pm 0.1 10E3/UL April 26, 2016 6:57am 704-7: BASOPHILS # (AUTO)(0.0-0.2 10E3/UL) 0.1 10E3/UL April 19, 2016 7:50pm 0.1 10E3/UL April 26, 2016 6:57am IMMATURE GRANS # (AUTO)(0.0-0.0 10E3/UL) 0.4 10E3/UL April 19, 2016 7:50pm 0.5 10E3/UL April 26, 2016 6:57am DIFF TYPE AUTOMATED April 19, 2016 7:50pm AUTOMATED April 26, 2016 6:57am COMPLETE BLOOD COUNT WHITE BLOOD COUNT(4.0-11.0 10E3/UL) 10.0 10E3/UL April 21, 2016 5:59am 11.8 10E3/UL April 22, 2016 6:43am 11.9 10E3/UL April 25, 2016 6:10am RED BLOOD COUNT(4.50-5.90 10E6/UL) 4.36 10E6/UL April 21, 2016 5:59am 4.29 10E6/UL April 22, 2016 6:43am 4.45 10E6/UL April 25, 2016 6:10am HEMOGLOBIN(13.5-17.5 G/DL) 13.3 G/DL April 21, 2016 5:59am 13.2 G/DL April 22, 2016 6:43am 13.7 G/DL April 25, 2016 6:10am HEMATOCRIT(41.0-53.0 %) 41.7 % April 21, 2016 5:59am 41.6 % April 22, 2016 6:43am 42.4 % April 25, 2016 6:10am 98183-0: MEAN CORPUSCULAR VOLUME(82.0-100.0 FL) 95.6 FL April 21, 2016 5:59am 97.0 FL April 22, 2016 6:43am 95.3 FL April 25, 2016 6:10am 52722-7: MEAN CORPUSCULAR HEMOGLOBIN(26.0-34.0 PG) 30.5 PG April 21, 2016 5: 59am 30.8 PG April 22, 2016 6:43am 30.8 PG April 25, 2016 6:10am MEAN CORPUSCULAR HGB CONC(31.5-36.5 G/DL) 31.9 G/DL April 21, 2016 5:59am 31.7 G/DL April 22, 2016 6:43am 32.3 G/DL April 25, 2016 6:10am RED CELL DISTRIBUTION WIDTH(11.5-14.5 %) 15.9 % April 21, 2016 5:59am 15.9 % April 22, 2016 6:43am 15.6 % April 25, 2016 6:10am 777-3: PLATELET COUNT(150-450 10E3/UL) 204 10E3/UL April 21, 2016 5:59am 210 10E3/UL April 22, 2016 6:43am 215 10E3/UL April 25, 2016 6:10am MEAN PLATELET VOLUME(8.2-12.4 FL) 9.9 FL April 21, 2016 5:59am 10.8 FL April 22, 2016 6:43am 9.7 FL April 25, 2016 6:10am NUCLEATED RBCS (AUTO)(0-0 %) 0 % April 21, 2016 5:59am 0 % April 22, 2016 6:43am 0 % April 25, 2016 6:10am 42333-9: ERYTHROCYTE SEDIMENTATION RATE 25523-8: ERYTHROCYTE SEDIMENTATION RATE(0-15 MM/HR) 58 MM/HR April 24, 2016 7: 06am 70629-9: PROTHROMBIN TIME WITH INR PROTHROMBIN TIME(12.1-14.0 SEC) 19.4 SEC April 19, 2016 7:50pm 19.6 SEC April 20, 2016 6:05am 18.0 SEC April 20, 2016 2:09pm 18.4 SEC April 21, 2016 5:59am 17.4 SEC April 22, 2016 6:43am 18.0 SEC April 23, 2016 6:53am 16.3 SEC April 26, 2016 6:57am 47424-3: INR 1.62 April 19, 2016 7:50pm Result Comments: INR reference interval applies to patients on anticoagulant therapy. Suggested INR therapeutic range for oral anticoagulant therapy: (Stabilized anticoagulated patients) Routine Therapy: 2.0 to 3.0 Recurrent Myocardial Infarction: 2.5 to 3.5 Mechanical Prosthetic Valves: 2.5 to 3.5 1.65 April 20, 2016 6:05am Result Comments: INR reference interval applies to patients on anticoagulant therapy. Suggested INR therapeutic range for oral anticoagulant therapy: (Stabilized anticoagulated patients) Routine Therapy: 2.0 to 3.0 Recurrent Myocardial Infarction: 2.5 to 3.5 Mechanical Prosthetic Valves: 2.5 to 3.5 1.48 April 20, 2016 2:09pm Result Comments: INR reference interval applies to patients on anticoagulant therapy. Suggested INR therapeutic range for oral anticoagulant therapy: (Stabilized anticoagulated patients) Routine Therapy: 2.0 to 3.0 Recurrent Myocardial Infarction: 2.5 to 3.5 Mechanical Prosthetic Valves: 2.5 to 3.5 1.52 April 21, 2016 5:59am Result Comments: INR reference interval applies to patients on anticoagulant therapy. Suggested INR therapeutic range for oral anticoagulant therapy: (Stabilized anticoagulated patients) Routine Therapy: 2.0 to 3.0 Recurrent Myocardial Infarction: 2.5 to 3.5 Mechanical Prosthetic Valves: 2.5 to 3.5 1.41 April 22, 2016 6:43am Result Comments: INR reference interval applies to patients on anticoagulant therapy. Suggested INR therapeutic range for oral anticoagulant therapy: (Stabilized anticoagulated patients) Routine Therapy: 2.0 to 3.0 Recurrent Myocardial Infarction: 2.5 to 3.5 Mechanical Prosthetic Valves: 2.5 to 3.5 1.48 April 23, 2016 6:53am Result Comments: INR reference interval applies to patients on anticoagulant therapy. Suggested INR therapeutic range for oral anticoagulant therapy: (Stabilized anticoagulated patients) Routine Therapy: 2.0 to 3.0 Recurrent Myocardial Infarction: 2.5 to 3.5 Mechanical Prosthetic Valves: 2.5 to 3.5 1.31 April 26, 2016 6:57am Result Comments: INR reference interval applies to patients on anticoagulant therapy. Suggested INR therapeutic range for oral anticoagulant therapy: (Stabilized anticoagulated patients) Routine Therapy: 2.0 to 3.0 Recurrent Myocardial Infarction: 2.5 to 3.5 Mechanical Prosthetic Valves: 2.5 to 3.5 PARTIAL THROMBOPLASTIN TIME PARTIAL THROMBOPLASTIN TIME(22.2-37.4 SEC) 28.3 SEC April 19, 2016 7:50pm UA WITH SCREEN FOR CULTURE 5778-6: COLOR,URINE YELLOW April 19, 2016 9:27pm 50007-0: CLARITY,URINE CLEAR April 19, 2016 9:27pm GLUCOSE, URINE(NEGATIVE MG/DL) NEGATIVE MG/DL April 19, 2016 9:27pm URINE BILIRUBIN(NEGATIVE) NEGATIVE April 19, 2016 9:27pm KETONES,URINE(NEGATIVE MG/DL) NEGATIVE MG/DL April 19, 2016 9:27pm 2965-2: URINE SPECIFIC GRAVITY(1.001-1.035) 1.013 April 19, 2016 9:27pm 36782-6: URINE BLOOD(NEGATIVE) NEGATIVE April 19, 2016 9:27pm 2756-5: URINE PH(5.0-9.0) 8.0 April 19, 2016 9:27pm URINE PROTEIN(Less than 20 MG/DL) TRACE MG/DL April 19, 2016 9:27pm 73169-2: URINE UROBILINOGEN(0.2-1.0 MG/DL) 0.2-1.0 MG/DL April 19, 2016 9:27pm URINE NITRITE(NEGATIVE) NEGATIVE April 19, 2016 9:27pm 5799-2: LEUKOCYTE ESTERASE ,URINE(NEGATIVE) NEGATIVE April 19, 2016 9:27pm URINE RBCS(0-3 /HPF) 0-3 /HPF April 19, 2016 9:27pm URINE WBCS(0-3 /HPF) 4-7 /HPF April 19, 2016 9:27pm URINE EPITHELIAL CELLS(0-3 /HPF) 0-3 /HPF April 19, 2016 9:27pm URINE HYALINE CASTS(0-3 /LPF) 0-3 /LPF April 19, 2016 9:27pm URINE BACTERIA(NEGATIVE /HPF) NEGATIVE /HPF April 19, 2016 9:27pm 630-4: URINE CULTURE NOT INDICATED April 19, 2016 9:27pm URINE MICROSCOPIC REQUIRED YES April 19, 2016 9:27pm 34033-1: COMPLETE METABOLIC PROFILE GLUCOSE(70-110 MG/DL) 101 MG/DL April 19, 2016 7:50pm 94 MG/DL April 20, 2016 6:05am 121 MG/DL April 21, 2016 5:59am 106 MG/DL April 22, 2016 6:43am 114 MG/DL April 23, 2016 6:53am 110 MG/DL April 24, 2016 7:06am 119 MG/DL April 25, 2016 6:10am 139 MG/DL April 26, 2016 6:57am BLOOD UREA NITROGEN(6-20 MG/DL) 14 MG/DL April 19, 2016 7:50pm 15 MG/DL April 20, 2016 6:05am 11 MG/DL April 21, 2016 5:59am 11 MG/DL April 22, 2016 6:43am 10 MG/DL April 23, 2016 6:53am 13 MG/DL April 24, 2016 7:06am 14 MG/DL April 25, 2016 6:10am 13 MG/DL April 26, 2016 6:57am CREATININE(0.50-1.20 MG/DL) 0.75 MG/DL April 19, 2016 7:50pm 0.81 MG/DL April 20, 2016 6:05am 0.76 MG/DL April 21, 2016 5:59am 0.69 MG/DL April 22, 2016 6:43am 0.76 MG/DL April 23, 2016 6:53am 0.71 MG/DL April 24, 2016 7:06am 0.70 MG/DL April 25, 2016 6:10am 0.69 MG/DL April 26, 2016 6:57am 60137-1: EST GLOMERULAR FILTRATION RATE(Greater than or equal to 60) Greater than or equal to 60 April 19, 2016 7:50pm Result Comments: If the patient is of -Prydeinig descent/extraction multiply the eGFR value by 1.212 to obtain the actual eGFR. >=60 mg/dL Normal 30-59 mg/dL Moderate Kidney Disease 15-29 mg/dL Severe Kidney Disease <15 mg/dL Kidney Failure Greater than or equal to 60 April 20, 2016 6:05am Result Comments: If the patient is of -Prydeinig descent/extraction multiply the eGFR value by 1.212 to obtain the actual eGFR. >=60 mg/dL Normal 30-59 mg/dL Moderate Kidney Disease 15-29 mg/dL Severe Kidney Disease <15 mg/dL Kidney Failure Greater than or equal to 60 April 21, 2016 5:59am Result Comments: If the patient is of -Prydeinig descent/extraction multiply the eGFR value by 1.212 to obtain the actual eGFR. >=60 mg/dL Normal 30-59 mg/dL Moderate Kidney Disease 15-29 mg/dL Severe Kidney Disease <15 mg/dL Kidney Failure Greater than or equal to 60 April 22, 2016 6:43am Result Comments: If the patient is of -Prydeinig descent/extraction multiply the eGFR value by 1.212 to obtain the actual eGFR. >=60 mg/dL Normal 30-59 mg/dL Moderate Kidney Disease 15-29 mg/dL Severe Kidney Disease <15 mg/dL Kidney Failure Greater than or equal to 60 April 23, 2016 6:53am Result Comments: If the patient is of -Prydeinig descent/extraction multiply the eGFR value by 1.212 to obtain the actual eGFR. >=60 mg/dL Normal 30-59 mg/dL Moderate Kidney Disease 15-29 mg/dL Severe Kidney Disease <15 mg/dL Kidney Failure Greater than or equal to 60 April 24, 2016 7:06am Result Comments: If the patient is of -Prydeinig descent/extraction multiply the eGFR value by 1.212 to obtain the actual eGFR. >=60 mg/dL Normal 30-59 mg/dL Moderate Kidney Disease 15-29 mg/dL Severe Kidney Disease <15 mg/dL Kidney Failure Greater than or equal to 60 April 25, 2016 6:10am Result Comments: If the patient is of -Prydeinig descent/extraction multiply the eGFR value by 1.212 to obtain the actual eGFR. >=60 mg/dL Normal 30-59 mg/dL Moderate Kidney Disease 15-29 mg/dL Severe Kidney Disease <15 mg/dL Kidney Failure Greater than or equal to 60 April 26, 2016 6:57am Result Comments: If the patient is of -Prydeinig descent/extraction multiply the eGFR value by 1.212 to obtain the actual eGFR. >=60 mg/dL Normal 30-59 mg/dL Moderate Kidney Disease 15-29 mg/dL Severe Kidney Disease <15 mg/dL Kidney Failure BUN CREATININE RATIO(10.0-20.0 RATIO) 19.0 RATIO April 19, 2016 7:50pm 19.0 RATIO April 20, 2016 6:05am 14.0 RATIO April 21, 2016 5:59am 16.0 RATIO April 22, 2016 6:43am 13.0 RATIO April 23, 2016 6:53am 18.0 RATIO April 24, 2016 7:06am 20.0 RATIO April 25, 2016 6:10am 19.0 RATIO April 26, 2016 6:57am SODIUM(135-145 MMOL/L) 131 MMOL/L April 19, 2016 7:50pm 134 MMOL/L April 20, 2016 6:05am 132 MMOL/L April 21, 2016 5:59am 133 MMOL/L April 22, 2016 6:43am 135 MMOL/L April 23, 2016 6:53am 133 MMOL/L April 24, 2016 7:06am 132 MMOL/L April 25, 2016 6:10am 132 MMOL/L April 26, 2016 6:57am POTASSIUM(3.6-5.0 MMOL/L) 4.3 MMOL/L April 19, 2016 7:50pm 3.9 MMOL/L April 20, 2016 6:05am 3.7 MMOL/L April 21, 2016 5:59am 4.0 MMOL/L April 22, 2016 6:43am 3.7 MMOL/L April 23, 2016 6:53am 3.7 MMOL/L April 24, 2016 7:06am 3.5 MMOL/L April 25, 2016 6:10am 3.6 MMOL/L April 26, 2016 6:57am CHLORIDE(101-111 MMOL/L) 96 MMOL/L April 19, 2016 7:50pm 100 MMOL/L April 20, 2016 6:05am 96 MMOL/L April 21, 2016 5:59am 101 MMOL/L April 22, 2016 6:43am 101 MMOL/L April 23, 2016 6:53am 101 MMOL/L April 24, 2016 7:06am 99 MMOL/L April 25, 2016 6:10am 98 MMOL/L April 26, 2016 6:57am CO2(21-31 MMOL/L) 27 MMOL/L April 19, 2016 7:50pm 29 MMOL/L April 20, 2016 6:05am 29 MMOL/L April 21, 2016 5:59am 27 MMOL/L April 22, 2016 6:43am 29 MMOL/L April 23, 2016 6:53am 27 MMOL/L April 24, 2016 7:06am 28 MMOL/L April 25, 2016 6:10am 28 MMOL/L April 26, 2016 6:57am ANION GAP(8-18) 12 April 19, 2016 7:50pm 9 April 20, 2016 6:05am 11 April 21, 2016 5:59am 9 April 22, 2016 6:43am 9 April 23, 2016 6:53am 9 April 24, 2016 7:06am 9 April 25, 2016 6:10am 10 April 26, 2016 6:57am OSMO CALCULATED(270.0-290.0) 263.3 April 19, 2016 7:50pm 268.8 April 20, 2016 6:05am 265.2 April 21, 2016 5:59am 266.2 April 22, 2016 6:43am 270.0 April 23, 2016 6:53am 267.1 April 24, 2016 7:06am 266.1 April 25, 2016 6:10am 266.9 April 26, 2016 6:57am CALCIUM(8.5-10.5 MG/DL) 8.8 MG/DL April 19, 2016 7:50pm 8.2 MG/DL April 20, 2016 6:05am 8.1 MG/DL April 21, 2016 5:59am 8.0 MG/DL April 22, 2016 6:43am 8.1 MG/DL April 23, 2016 6:53am 8.4 MG/DL April 24, 2016 7:06am 8.1 MG/DL April 25, 2016 6:10am 8.3 MG/DL April 26, 2016 6:57am BILIRUBIN,TOTAL(0.1-1.2 MG/DL) 2.8 MG/DL April 19, 2016 7:50pm 2.2 MG/DL April 20, 2016 6:05am 2.3 MG/DL April 21, 2016 5:59am 1.3 MG/DL April 22, 2016 6:43am 1.2 MG/DL April 23, 2016 6:53am 1.3 MG/DL April 24, 2016 7:06am 1.2 MG/DL April 25, 2016 6:10am 1.3 MG/DL April 26, 2016 6:57am ALKALINE PHOSPHATASE(42-121 IU/L) 248 IU/L April 19, 2016 7:50pm 191 IU/L April 20, 2016 6:05am 204 IU/L April 21, 2016 5:59am 205 IU/L April 22, 2016 6:43am 227 IU/L April 23, 2016 6:53am 227 IU/L April 24, 2016 7:06am 223 IU/L April 25, 2016 6:10am 183 IU/L April 26, 2016 6:57am ASPARTATE AMINO TRANSFERASE(10-42 IU/L) 396 IU/L April 19, 2016 7:50pm 234 IU/L April 20, 2016 6:05am 162 IU/L April 21, 2016 5:59am 111 IU/L April 22, 2016 6:43am 91 IU/L April 23, 2016 6:53am 77 IU/L April 24, 2016 7:06am 96 IU/L April 25, 2016 6:10am 54 IU/L April 26, 2016 6:57am ALANINE AMINOTRANSFERASE(10-60 IU/L) 580 IU/L April 19, 2016 7:50pm 437 IU/L April 20, 2016 6:05am 359 IU/L April 21, 2016 5:59am 291 IU/L April 22, 2016 6:43am 249 IU/L April 23, 2016 6:53am 201 IU/L April 24, 2016 7:06am 200 IU/L April 25, 2016 6:10am 148 IU/L April 26, 2016 6:57am TOTAL PROTEIN(6.4-8.2 G/DL) 8.2 G/DL April 19, 2016 7:50pm 6.6 G/DL April 20, 2016 6:05am 7.0 G/DL April 21, 2016 5:59am 6.7 G/DL April 22, 2016 6:43am 6.9 G/DL April 23, 2016 6:53am 6.9 G/DL April 24, 2016 7:06am 6.7 G/DL April 25, 2016 6:10am 6.8 G/DL April 26, 2016 6:57am ALBUMIN(3.5-5.5 G/DL) 3.7 G/DL April 19, 2016 7:50pm 2.9 G/DL April 20, 2016 6:05am 3.0 G/DL April 21, 2016 5:59am 2.7 G/DL April 22, 2016 6:43am 2.8 G/DL April 23, 2016 6:53am 2.9 G/DL April 24, 2016 7:06am 2.8 G/DL April 25, 2016 6:10am 2.8 G/DL April 26, 2016 6:57am GLOBULIN(2.4-3.6) 4.5 April 19, 2016 7:50pm 3.7 April 20, 2016 6:05am 4.0 April 21, 2016 5:59am 4.0 April 22, 2016 6:43am 4.1 April 23, 2016 6:53am 4.0 April 24, 2016 7:06am 3.9 April 25, 2016 6:10am 4.0 April 26, 2016 6:57am ALBUMIN/GLOBULIN RATIO(0.9-1.8 RATIO) 0.8 RATIO April 19, 2016 7:50pm 0.8 RATIO April 20, 2016 6:05am 0.8 RATIO April 21, 2016 5:59am 0.7 RATIO April 22, 2016 6:43am 0.7 RATIO April 23, 2016 6:53am 0.7 RATIO April 24, 2016 7:06am 0.7 RATIO April 25, 2016 6:10am 0.7 RATIO April 26, 2016 6:57am 34577-6: MAGNESIUM 50478-1: MAGNESIUM(1.8-2.5 MG/DL) 1.9 MG/DL April 19, 2016 7:50pm 1.8 MG/DL April 26, 2016 6:57am LIVER PROFILE BILIRUBIN,TOTAL(0.1-1.2 MG/DL) 5.3 MG/DL April 20, 2016 2:09pm 1968-7: BILIRUBIN DIRECT(0-0.2 MG/DL) 3.2 MG/DL April 20, 2016 2:09pm ALKALINE PHOSPHATASE(42-121 IU/L) 239 IU/L April 20, 2016 2:09pm ASPARTATE AMINO TRANSFERASE(10-42 IU/L) 292 IU/L April 20, 2016 2:09pm ALANINE AMINOTRANSFERASE(10-60 IU/L) 482 IU/L April 20, 2016 2:09pm TOTAL PROTEIN(6.4-8.2 G/DL) 7.5 G/DL April 20, 2016 2:09pm ALBUMIN(3.5-5.5 G/DL) 3.3 G/DL April 20, 2016 2:09pm 52142-6: [place] I 82993-7: CARDIAC TROPONIN I(0.01-0.04 NG/ML) 0.08 NG/ML April 19, 2016 7:50pm Result Comments: REFERENCE RANGES: NEGATIVE < 0.04 NG/ML POSSIBLE MYCARDIAL INVOLVEMENT >/=0.04 NG/ML INTERPRET TROPONIN I RESULT IN LIGHT OF THE TOTAL CLINICAL PRESENTATION INCLUDING CLINICAL HISTORY. ANY CONDITION RESULTING IN MYOCARDIAL INJURY CAN POTENTIALLY ELEVATE TROPONIN I LEVELS ABOVE EXPECTED NORMAL RANGES. NOTE NEW REFERENCE RANGE 0.09 NG/ML April 21, 2016 2:17pm Result Comments: REFERENCE RANGES: NEGATIVE < 0.04 NG/ML POSSIBLE MYCARDIAL INVOLVEMENT >/=0.04 NG/ML INTERPRET TROPONIN I RESULT IN LIGHT OF THE TOTAL CLINICAL PRESENTATION INCLUDING CLINICAL HISTORY. ANY CONDITION RESULTING IN MYOCARDIAL INJURY CAN POTENTIALLY ELEVATE TROPONIN I LEVELS ABOVE EXPECTED NORMAL RANGES. NOTE NEW REFERENCE RANGE 28695-6: BETA NATRIURETIC PEPTIDE 57725-1: BETA NATRIURETIC PEPTIDE(0-100 PG/ML) 100 PG/ML April 19, 2016 7:50pm 85 PG/ML April 21, 2016 2:17pm IRON PROFILE IRON(40-160 UG/DL) 48 UG/DL April 20, 2016 2:09pm IRON BINDING CAPACITY, TOTAL(250-400 UG/DL) 258 UG/DL April 20, 2016 2:09pm 3034-6: TRANSFERRIN(180-329 MG/DL) 184 MG/DL April 20, 2016 2:09pm IRON SATURATION(20-50 %) 19 % April 20, 2016 2:09pm AMYLASE AMYLASE(25-125 U/L) 72 U/L April 20, 2016 2:09pm 3040-3: LIPASE 3040-3: LIPASE(22-51 U/L) 34 U/L April 19, 2016 7:50pm 37 U/L April 20, 2016 2:09pm LACTIC ACID LACTIC ACID(0.5-2.0 MMOL/L) 3.0 MMOL/L April 19, 2016 7:50pm THYROID STIMULATING HORMONE THYROID STIMULATING HORMONE(0.340-5.600 uIU/ML) 3.380 uIU/ML April 19, 2016 7: 50pm ANTI-MITOCHONDRIAL ANTIBODY ANTI-MITOCHONDRIAL ANTIBODY(0.0-20.0 Units) 5.1 Units April 20, 2016 2:09pm Result Comments: Negative 0.0 - 20.0 Equivocal 20.1 - 24.9 Positive >24.9 Mitochondrial (M2) Antibodies are found in 90-96% of patients with primary biliary cirrhosis. Performed at: [address] [id number] Certified Personal Trainer: Alfred Siddiqi MD, Phone: [phone] Microbiology Results Visit/Account #[id number] (April 19, 2016 7:42pm - April 26, 2016 2:06pm) Procedure Result 630-4: URINE CULTURE 630-4: URINE CULTURE Result Instance On April 21, 2016 7:50pm Source: URINE Organism: MIXED UROGENITAL ORGANISMS COLONY COUNT <10,000 67100-0: MRSA SCREEN FOR INFEC CONTROL 96089-0: MRSA SCREEN FOR INFEC CONTROL Result Instance On April 19, 2016 10: 30pm Source: N[facility] Special Result Comments: No growth Allergies and Adverse Reactions Allergies and Adverse Reactions Patient Unit Number: [id number] Agent Type Reaction Severity Status IODINATED CONTRAST [...] Severe Active Problem List Problem List Visit/Account #[id number] (April 19, 2016 7:42pm - April 26, 2016 2:06pm) Acute Problems: Code/Condition Comments Documented Start Documented Code(s) Date Resolved Date Total bilirubin, elevated ICD10: R17 High total bilirubin ICD9: 277.4 High total bilirubin SNOMED: 390159456655259 High total bilirubin Physical deconditioning ICD10: R53.81 Physical deconditioning ICD9: 799.3 Physical deconditioning SNOMED: 473283326 Physical deconditioning Dyspnea ICD10: R06.00 Dyspnea ICD9: 786.09 Dyspnea SNOMED: 381050145 Dyspnea Abdominal bloating ICD10: R14.0 Abdominal bloating ICD9: 787.3 Abdominal bloating SNOMED: 230530023 Abdominal bloating Hyponatremia ICD10: E87.1 Hyponatremia ICD9: 276.1 Hyponatremia SNOMED: 38400080 Hyponatremia Hepatic dysfunction ICD10: K76.9 Disorder of liver ICD9: 573.9 Disorder of liver SNOMED: 886570262 Disorder of liver Chronic Problems: Chronic anticoagulation ICD10: Z79.01 correction current use of anticoagulant therapy ICD9: V58.61 correction current use of anticoagulant therapy 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 Obstructive sleep apnea on CPAP ICD10: G47.33 Obstructive sleep apnea treated with continuous positive airway pressure (CPAP) ICD9: 327.23 Obstructive sleep apnea treated with continuous positive airway pressure (CPAP) SNOMED: 98287819 Obstructive sleep apnea treated with continuous positive airway pressure (CPAP) Bloating ICD10: R14.0 Abdominal bloating ICD9: 787.3 Abdominal bloating SNOMED: 575457830 Abdominal bloating Chronic ulcer of leg ICD10: L97.909 Chronic ulcer of lower extremity ICD9: 707.10 Chronic ulcer of lower extremity SNOMED: 50412919 Chronic ulcer of lower extremity Atrial fibrillation ICD10: I48.91 Atrial fibrillation ICD9: 427.31 Atrial fibrillation SNOMED: 49158350 Atrial fibrillation Urinary retention ICD10: R33.9 Retention of urine ICD9: 788.20 Retention of urine SNOMED: 163519820 Retention of urine Elevated LFTs ICD10: R79.89 Elevated liver function tests ICD9: 790.6 Elevated liver function tests SNOMED: 705082108 Elevated liver function tests Rheumatoid arthritis ICD10: M06.9 Rheumatoid arthritis ICD9: 714.0 Rheumatoid arthritis SNOMED: 21636003 Rheumatoid arthritis Patient Unit Number: [id number] Chronic Problems: Code/Condition Comments Documented Start Documented Code(s) Date Resolved Date Rheumatoid arthritis ICD10: M06.9 Rheumatoid arthritis ICD9: 714.0 Rheumatoid arthritis SNOMED: 98901130 Rheumatoid arthritis Chronic constipation ICD10: K59.00 Chronic constipation ICD9: 564.00 Chronic constipation SNOMED: 915226315 Chronic constipation Urinary frequency ICD10: R35.0 Increased frequency of urination ICD9: 788.41 Increased frequency of urination SNOMED: 274309070 Increased frequency of urination AAA (abdominal aortic aneurysm) without rupture ICD10: I71.4 Abdominal aortic aneurysm without rupture ICD9: 441.4 Abdominal aortic aneurysm without rupture SNOMED: 40632420 Abdominal aortic aneurysm without rupture Plan of Care Plan Of Care Visit/Account #[id number] (April 19, 2016 7:42pm - April 26, 2016 2:06pm) Patient Instructions Instructions DI for Shortness of Breath DI for Muscle Weakness Famotidine DI for Warfarin Therapy Vital Signs Vital Signs Visit/Account #[id number] (April 19, 2016 7:42pm - April 26, 2016 2:06pm) Sign First Result Last Result Code(s) Body Mass Index Body Mass Index (BMI): 44.0 kg/m2 On April 19, 2016 7:34pm 24309-2 BMI (body mass index) Body Mass Index as a Calculated Value 44.2 kg/m2 On April 19, 2016 7:34pm 14118-0 BMI (body mass index) Blood Pressure 124/ 56 mm[Hg] On April 20, 2016 1:04am 111/ 70 mm[Hg] On April 25, 2016 6:05pm 8480-6 BP Systolic Body Surface Area as a Calculated Value 2.4 m2 On April 19, 2016 7:34pm 3140 -1 BSA (body surface area) Height (Feet/Inches) 5 [ft_us] 8 [in_us] On April 19, 2016 7:34pm Heart Rate/Pulse Pulse Rate (adult): 86 /min On April 20, 2016 1:04am Pulse Rate (adult): 90 /min On April 25, 2016 6:05pm 8867-4 Heart Rate 8893-0 Pulse rate Respiratory Rate Respiratory Rate: 26 /min On April 20, 2016 1:04am Respiratory Rate: 22 /min On April 25, 2016 6:05pm 9279-1 Respiratory rate Temperature in Fahrenheit Temperature (Fahrenheit): 98.2 [degF] On April 19, 2016 7:34pm Temperature (Fahrenheit): 97.4 [degF] On April 25, 2016 6:05pm 8310-5 Body Temperature Weight in Kilograms Weight (Kilograms): 131.82 kg On April 19, 2016 7:34pm 3141-9 Weight Measured 11924-1 Body weight measured in kilograms Functional Status Functional and Cognitive Status No Functional Status Data Medications Home Medications - Medications that the patient was taking prior to arrival at the hospital Visit/Account #[id number] (April 19, 2016 7:42pm - April 26, 2016 2:06pm) Medication Route Sig/Schedule Precondition/Indication Comments/ Instructions Codes COUMADIN(WARFARIN SODIUM) 5 MG TAB ORAL EVERY 48 HOURS Rx Instructions: Warfarin Sodium 5 MG Oral Tablet [Coumadin] (RxNorm): 234123 Dose: 5 MG *ALTERNATES W 2.5 MG* COUMADIN (WARFARIN SODIUM) NDC: [id number] MILK OF MAGNESIA(MAGNESIUM HYDROXIDE) 400 MG/5 ML ORAL.SUSP ORAL DAILY CONSTIPATION Magnesium Hydroxide 80 MG/ML Oral Suspension (RxNorm): 009068 Dose: 30 ML MILK OF MAGNESIA (MAGNESIUM HYDROXIDE) NDC: 09578787074 BUMEX(BUMETANIDE) 1 MG TAB ORAL EVERY 48 HOURS Bumetanide 1 MG Oral Tablet (RxNorm): 161682 Dose: 1 MG BUMEX (BUMETANIDE) NDC: 32170262848 COUMADIN(WARFARIN SODIUM) 5 MG TAB ORAL EVERY 48 HOURS Rx Instructions: Warfarin Sodium 5 MG Oral Tablet [Coumadin] (RxNorm): 873925 Dose: 2.5 MG *ALTERNATES W 5 MG* COUMADIN (WARFARIN SODIUM) NDC: 18869682115 Senna S Tablet(SENNOSIDES/DOCUSATE SODIUM) 1 TAB TABLET ORAL DAILY Docusate Sodium 50 MG / sennosides, CUSTODIAL 8.6 MG Oral Tablet (RxNorm): 254397 Dose: 5 TAB Senna S Tablet (SENNOSIDES/DOCUSATE SODIUM) NDC: 58100294262 Deltasone(PREDNISOLONE, MICRONIZED) 5 MG TABLET ORAL DAILY AT [facility] Prednisone 5 MG Oral Tablet (RxNorm): 525320 Dose: 15 MG Deltasone (PREDNISOLONE, MICRONIZED) NDC: 38366350839 Deltasone(PREDNISOLONE, MICRONIZED) 5 MG TABLET ORAL AT BEDTIME Prednisone 5 MG Oral Tablet (RxNorm): 455009 Dose: 10 MG Deltasone (PREDNISOLONE, MICRONIZED) NDC: 22761089397 ESCITALOPRAM OXALATE(ESCITALOPRAM OXALATE) 10 MG TABLET ORAL DAILY Escitalopram 10 MG Oral Tablet (RxNorm): 568004 Dose: 5 MG ESCITALOPRAM OXALATE (ESCITALOPRAM OXALATE) NDC: 48138402887 OXYCODONE HCL(OxyCODONE) 5 MG TAB ORAL EVERY 6 HOURS PAIN OXYCODONE HCL ( OxyCODONE) NDC: 74267567113 Dose: 5-10 MG ESCITALOPRAM OXALATE(ESCITALOPRAM OXALATE) 5 MG TABLET ORAL DAILY Escitalopram 5 MG Oral Tablet (RxNorm): 473971 Dose: 5 MG ESCITALOPRAM OXALATE (ESCITALOPRAM OXALATE) NDC: 29264038830 OXYCODONE HCL(OxyCODONE) 5 MG TABLET ORAL Q4H PAIN Rx Instructions: Oxycodone Hydrochloride 5 MG Oral Tablet (RxNorm): 5516942 Dose: 5 MG *LF 04/13/16 #45* OXYCODONE HCL (OxyCODONE) NDC: 75208971555 Famotidine(FAMOTIDINE) 20 MG TAB ORAL TWICE A DAY Famotidine (FAMOTIDINE ) NDC: 54164351347 Dose: 20 MG Inpatient/Ordered Medications - Medications administered during hospital visit Visit/Account #[id number] (April 19, 2016 7:42pm - April 26, 2016 2:06pm) Medication Route Sig/Schedule Precondition/Indication Comments/ Instructions Codes IV Medication INTRAVEN .Q30M (Rate: 1000 MLS/HR Duration: 30 MIN) Carriers: Carriers: 1000 ML Sodium Chloride 9 MG/ML Injection (RxNorm): 7598030 NORMAL SALINE(SODIUM CHLORIDE) 1000 ML INJECTION NORMAL SALINE ( SODIUM CHLORIDE) NDC: 81313857735 Dose: 500 ML BUMEX(BUMETANIDE) 1 MG TAB ORAL EVERY 48 HOURS Label Comments: Bumetanide 1 MG Oral Tablet (RxNorm): 534103 Dose: 1 MG MAY INCREASE FALL RISK BUMEX (BUMETANIDE) NDC: 16132849074 ROXICODONE(OxyCODONE HCL) 5 MG TAB ORAL Q4H PRN Reason: PAIN Label Comments : Oxycodone Hydrochloride 5 MG Oral Tablet (RxNorm): 1948898 Dose: 5 MG OXYCODONE IMMED RELEASE MAY INCREASE FALL RISK ROXICODONE (OxyCODONE HCL) NDC: 60256240953 DELTASONE(PredniSONE) 5 MG TAB ORAL AT BEDTIME Label Comments: Prednisone 5 MG Oral Tablet (RxNorm): 289975 Dose: 10 MG TAKE WITH FOOD OR MILK DELTASONE (PredniSONE) NDC: 10909135985 DELTASONE(PredniSONE) 5 MG TAB ORAL DAILY AT [facility] Rx Order Comments: Prednisone 5 MG Oral Tablet (RxNorm): 674962 Dose: 15 MG Order filed UNV: Allergies/Duplicates/Interactions differ from border guard DELTASONE ( PredniSONE) NDC: 65830551936 Label Comments: TAKE WITH FOOD OR MILK SENOKOT S 50/8.6 MG(DOCUSATE SOD/SENNA) 1 TAB TAB ORAL DAILY Docusate Sodium 50 MG / sennosides, CUSTODIAL 8.6 MG Oral Tablet (RxNorm): 987336 Dose: 5 TAB SENOKOT S 50/8.6 MG (DOCUSATE SOD/SENNA) NDC: 91699997423 COUMADIN(WARFARIN SOD) 2.5 MG TAB ORAL Q48H Label Comments: Warfarin Sodium 2.5 MG Oral Tablet [Coumadin] (RxNorm): 873136 Dose: 2.5 MG TERATOGENIC. WOMEN SHOULD NOT HANDLE OR CRUSH. COUMADIN (WARFARIN SOD) NDC: 90254615173 COUMADIN(WARFARIN SOD) 5 MG TAB ORAL Q48H Label Comments: Warfarin Sodium 5 MG Oral Tablet [Coumadin] (RxNorm): 874402 Dose: 5 MG TERATOGENIC. WOMEN SHOULD NOT HANDLE OR CRUSH. COUMADIN (WARFARIN SOD) NDC: 62817231664 LEXAPRO(ESCITALOPRAM OXALATE) 10 MG TAB ORAL DAILY Escitalopram 10 MG Oral Tablet (RxNorm): 198482 Dose: 5 MG LEXAPRO (ESCITALOPRAM OXALATE) NDC: 89288569921 GAS-X(SIMETHICONE) 80 MG TAB ORAL NEEDED PRN Reason: GAS Simethicone 80 MG Chewable Tablet (RxNorm): 568731 Dose: 80 MG GAS-X (SIMETHICONE) NDC: 64170366625 DELTASONE(PredniSONE) 5 MG TAB ORAL 18 Label Comments: Prednisone 5 MG Oral Tablet (RxNorm): 651864 Dose: 10 MG TAKE WITH FOOD OR MILK DELTASONE (PredniSONE) NDC: 55817199581 DELTASONE(PredniSONE) 5 MG TAB ORAL 06 Label Comments: Prednisone 5 MG Oral Tablet (RxNorm): 706651 Dose: 15 MG TAKE WITH FOOD OR MILK DELTASONE (PredniSONE) NDC: 92219234326 BUMEX INJ(BUMETANIDE) 1 MG/4 ML INJECTION INTRAVEN NOW Label Comments: 4 ML Bumetanide 0.25 MG/ML Injection (RxNorm): 6932943 Dose: 4 ML PROTECT FROM LIGHT MAY INCREASE FALL RISK BUMEX INJ (BUMETANIDE) NDC: 94211284405 K-DUR(POTASSIUM CHLORIDE) 20 MEQ TAB ORAL NOW Label Comments: Microencapsulated Potassium Chloride 20 MEQ Extended Release Oral Tablet [Klor- Con] (RxNorm): 8601923 Dose: 40 MEQ TAKE WITH FOOD TO AVOID GI UPSET K-DUR (POTASSIUM CHLORIDE) NDC: 37165788215 ROXICODONE(OxyCODONE HCL) 5 MG TAB ORAL Q3H PRN Reason: PAIN Label Comments : Oxycodone Hydrochloride 5 MG Oral Tablet (RxNorm): 9170558 Dose: 5 MG OXYCODONE IMMED RELEASE MAY INCREASE FALL RISK ROXICODONE (OxyCODONE HCL) NDC: 48583022586 BUMEX(BUMETANIDE) 0.5 MG TAB ORAL DAILY Label Comments: Bumetanide 0.5 MG Oral Tablet (RxNorm): 120738 Dose: 0.5 MG MAY INCREASE FALL RISK BUMEX (BUMETANIDE) NDC: 14821606915 CULTURELLE(LACTOBACILLUS RHAMNOSUS) 1 CAP CAP ORAL TWICE A DAY CULTURELLE (LACTOBACILLUS RHAMNOSUS) NDC: 78551472783 Dose: 1 CAP PEPCID(FAMOTIDINE) 20 MG TAB ORAL TWICE A DAY Famotidine 20 MG Oral Tablet (RxNorm): 072041 Dose: 20 MG PEPCID (FAMOTIDINE) NDC: 57343119691 SOLU-Medrol INJ(MethylPREDNISolone SOD SUCC) 125 MG/2 ML INJECTION INTRAMUSC NOW Methylprednisolone 125 MG Injection [Solu-Medrol] (RxNorm): 5098643 Dose: 0.96 ML SOLU-Medrol INJ (MethylPREDNISolone SOD SUCC) NDC: 05237611963 Discharge Medications - Medications that patient should continue to take. Review with physician Visit/Account #[id number] (April 19, 2016 7:42pm - April 26, 2016 2:06pm) Medication Route Sig/Schedule Precondition/Indication Comments/ Instructions Codes COUMADIN(WARFARIN SODIUM) 5 MG TAB ORAL EVERY 48 HOURS Rx Instructions: Warfarin Sodium 5 MG Oral Tablet [Coumadin] (RxNorm): 961113 Dose: 5 MG *ALTERNATES W 2.5 MG* COUMADIN (WARFARIN SODIUM) NDC: 21943848183 MILK OF MAGNESIA(MAGNESIUM HYDROXIDE) 400 MG/5 ML ORAL.SUSP ORAL DAILY CONSTIPATION Magnesium Hydroxide 80 MG/ML Oral Suspension (RxNorm): 131021 Dose: 30 ML MILK OF MAGNESIA (MAGNESIUM HYDROXIDE) NDC: 38364720915 COUMADIN(WARFARIN SODIUM) 5 MG TAB ORAL EVERY 48 HOURS Rx Instructions: Warfarin Sodium 5 MG Oral Tablet [Coumadin] (RxNorm): 632365 Dose: 2.5 MG *ALTERNATES W 5 MG* COUMADIN (WARFARIN SODIUM) NDC: 44327903855 Senna S Tablet(SENNOSIDES/DOCUSATE SODIUM) 1 TAB TABLET ORAL DAILY Docusate Sodium 50 MG / sennosides, CUSTODIAL 8.6 MG Oral Tablet (RxNorm): 317545 Dose: 5 TAB Senna S Tablet (SENNOSIDES/DOCUSATE SODIUM) NDC: 86071828914 Deltasone(PREDNISOLONE, MICRONIZED) 5 MG TABLET ORAL DAILY AT [facility] Prednisone 5 MG Oral Tablet (RxNorm): 005019 Dose: 15 MG Deltasone (PREDNISOLONE, MICRONIZED) NDC: 41119760083 Deltasone(PREDNISOLONE, MICRONIZED) 5 MG TABLET ORAL AT BEDTIME Prednisone 5 MG Oral Tablet (RxNorm): 631610 Dose: 10 MG Deltasone (PREDNISOLONE, MICRONIZED) NDC: 39438539821 ESCITALOPRAM OXALATE(ESCITALOPRAM OXALATE) 5 MG TABLET ORAL DAILY Escitalopram 5 MG Oral Tablet (RxNorm): 453473 Dose: 5 MG ESCITALOPRAM OXALATE (ESCITALOPRAM OXALATE) NDC: 38720756672 OXYCODONE HCL(OxyCODONE) 5 MG TABLET ORAL Q4H PAIN Rx Instructions: Oxycodone Hydrochloride 5 MG Oral Tablet (RxNorm): 5958602 Dose: 5 MG *LF 04/13/16 #45* OXYCODONE HCL (OxyCODONE) NDC: 83364728711 Famotidine(FAMOTIDINE) 20 MG TAB ORAL TWICE A DAY Famotidine (FAMOTIDINE ) NDC: 68920035592 Dose: 20 MG History Of Encounters Encounters Visit/Account #[id number] (April 19, 2016 7:42pm - April 26, 2016 2:06pm) Account Physican Of Reason For Visit Diagnosis Start Stop Date/Time Status Record Visit Date/Time TONIE WILCOX MD ABDOMINAL BLOATING,DYSPNEA,ELEVATED LFTS,PHYSICAL K76.89: OTHER SPECIFIED DISEASES OF LIVER ICD10 Apr 19, 2016 7:42pm Apr 19, 2016 10:28pm Jose ZENAIDA PATEL MD ABDOMINAL BLOATING,DYSPNEA,ELEVATED LFTS,PHYSICAL K76.89: OTHER SPECIFIED DISEASES OF LIVER ICD10 Apr 21, 2016 4:49pm Apr 26, 2016 2:06pm IN [place] DO ABDOMINAL BLOATING,DYSPNEA,ELEVATED LFTS,PHYSICAL K76.89: OTHER SPECIFIED DISEASES OF LIVER ICD10 Apr 21, 2016 4:49pm Apr 26, 2016 2:06pm History of Procedures Procedure List Visit/Account #[id number] (April 19, 2016 7:42pm - April 26, 2016 2:06pm) Code/Procedure Date [id number]: EXCISION OF LEFT LOBE LIVER, PERCUTANEOUS APPROACH, DIAGN April 24, 2016 Discharge Instructions Discharge Instructions Visit/Account #[id number] (April 19, 2016 7:42pm - April 26, 2016 2:06pm) DISCHARGE INSTRUCTIONS Physician Documentation PROVIDER INSTRUCTIONS Discharge Diet Cardiac Discharge Diet Cardiac REASON TO CALL PROVIDER Notify Physician if: temp above 100.4 F worsening abd pain changes in condition FOLLOW UP APPOINTMENTS Follow Up Appointment Date/Time: DR. JARVIS ([phone]) MAY 03 AT 9:45AM DR. DELGADO ([phone]) MAY [address] RAY ([phone]) on May 03 at 9:45 am with a repeat lab draw ( CMP) Lab draw (PT/INR) on April 28 Follow up lab (Protime/INR) for coumadin/warfarin dose: 04/28 Social History Social History No Social History Data. Immunizations Immunizations Patient Unit Number: [id number] Immunizations No immunizations recorded.
--- OUTSIDE RECORDS SUMMARY | 2017-03-15 16:13 | External Medical Summary ---
:1940 Author Name GENERATED, SYSTEM Care Team Providers Name Role Phone MD RAY CHADWIN Primary Care Provider Unavailable Reason For Visit Chief Complaint SKIN CA Social History Functional Status Vital Signs Results Problems Encounter Diagnosis No relevant problems exist. Encounters Encounter Diagnosis No relevant problems exist. Plan of Care Procedures No relevant procedures performed. Immunizations No immunizations administered or ordered. Hospital Course Hospital Discharge Instructions Allergies, Adverse Reactions, Alerts Latex Allergy has not been assessed.IV Contrast Allergy has not been assessed. Medication Medication reconciliation has not been performed.
--- OUTSIDE RECORDS SUMMARY | 2017-03-15 16:13 | External Medical Summary | Summary of Care ---
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 Refills: 0 Start -Jan-2015 Active Calcium 250 MG Oral Capsule Refills: [...] Estrada Start 02-Jun-2015 Active 22 GM Tube Fluorouracil 5 % External Cream APPLY A THIN LAYER TO AFFECTED AREA(S) ON FOREHEAD AND SCALP NIGHTLY x 4 WEEKS Quantity: 1 Refills: 1 Chrissy Estrada Start 10-May-2016 Active 40 GM Tube Allergies [...] Encounters Appointment; Provider: Wendy Guadarrama On 15:30 Appointment; Provider: Ghulam Veras M.D. On 10-Nov-2015 13:30 Instructions Name Dates Details Instructions not documented Encounters Appointment; Ghulam Veras M.D. On Encounter Diagnosis: Problem not documented 14:00 Appointment; Ghulam Veras M.D. On Encounter Diagnosis: Problem not documented 13:45 Appointment; Chrissy Chen P.A. On Encounter Diagnosis: Problem not documented 14:45 Appointment; Chrissy Chen P.A. On 12-Jul-2016 Encounter Diagnosis: Problem not documented 15:15 Appointment; Chrissy Chen PBrigidABrigid On 08-Jun-2016 Encounter Diagnosis: Problem not documented 14:45 Appointment; Reji Comer M.D.|DEYSI,ALEJANDRO|Chloe,FACP, On 23-May-2016 Encounter Diagnosis: Problem not documented [...] Problem not documented 15:30 Appointment; Chrissy Chen P.ABrigid On 02-Jun-2015 Encounter Diagnosis: Problem not documented [...] documented 14:30 Appointment; Zach Olvier M.D. On 03-Feb-2015 Encounter Diagnosis: Problem not documented 14:15 Appointment; Zach Oliver M.D. On 22-Jan-2015 Encounter Diagnosis: Problem not documented 14:30 Appointment; Chrissy Chen P.A. On 12-Jan-2015 Encounter Diagnosis: Problem not documented 15:00"
--- OUTSIDE RECORDS SUMMARY | 2017-03-15 16:13 | External Medical Summary | Summary of Care ---
:1940 Author Name Chrissy Estrada Address [address] Unavailable [place], [place] [id number] Care Team Providers Name Role Phone Chrissy [...] Squamous cell carcinoma of skin of left advent (173.32, C44.329) Status: Active Squamous cell carcinoma [...] Planned Encounters Appointment; Provider: Wendy Guadarrama On 10-Apr-2016 15:30 Instructions Name Dates Details Instructions not documented Encounters Appointment; Chrissy Chen P.A. On 14-Dec-2015 Encounter [...]
--- OUTSIDE RECORDS SUMMARY | 2017-03-15 16:13 | External Medical Summary | Summary of Care ---
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 On 02-Jun-2015 Encounter Diagnosis: Problem [...]
--- OUTSIDE RECORDS SUMMARY | 2017-03-15 16:13 | External Medical Summary | Summary of Care ---
:1940 Author Name Zach Oliver M.D. Address [address] [place], [place] [phone] Care Team Providers Name Role Phone Zach [...] Refills: 0 Zach Oliver M.D. Started 03-Feb-2015 [id number] GM Tube Hydrocodone-Acetaminophen 10-325 MG Oral Tablet [...] Planned Encounters Appointment; Provider: Zach Oliver On 17-Feb-2015 13:00 Instructions Instructions not documented Encounters Appointment; Zach Oliver On 10-Feb-2015 Encounter Diagnosis: Problem not documented 14:30 Appointment; Zach Oliver On 03-Feb-2015 Encounter Diagnosis: Problem not documented 14:15 Appointment; Zach Oliver On 22-Jan-2015 Encounter Diagnosis: Problem not documented 14:30 Appointment; Chrissy Chen On 12-Jan-2015 Encounter Diagnosis: Problem not documented 15:00
--- OUTSIDE RECORDS SUMMARY | 2017-03-15 16:13 | External Medical Summary | Continuity Of Care Document ---
:1940 Author Organization [facility] Address [address] [facility] [address] [place] [address] Phone Care Team Providers Name Role Phone UNASSIGNED, ED PHYSICIAN Unavailable Unavailable LAUREN JAMES, HARMONY Consulting Provider LAVELL JAMES, ANTHONY Man Attending Provider CORY JAMES, JOHN Gay Primary Care Provider MARKEL JAMES, SANTIAGO Garcia Attending Provider Results Lab Results Visit/Account #[id number] (November 30, 2014 5:31am - December 03, 2014 5:30pm) Test Result Date/Time POC LACTIC ACID VENOUS POC LACTIC ACID VENOUS(0.90-1.70 MMOL/L) 2.98 MMOL/L November 30, 2014 6:02am 33423-8: COMPLETE BLOOD COUNT WITH DIFF WHITE BLOOD COUNT(4.0-11.0 10E3/UL) 13.0 10E3/UL December 01, 2014 6:06am 9.3 10E3/UL December 03, 2014 6:30am RED BLOOD COUNT(4.50-5.90 10E6/UL) 4.46 10E6/UL December 01, 2014 6:06am 3.55 10E6/UL December 03, 2014 6:30am HEMOGLOBIN(13.5-17.5 G/DL) 14.7 G/DL December 01, 2014 6:06am 11.7 G/DL December 03, 2014 6:30am HEMATOCRIT(41.0-53.0 %) 44.6 % December 01, 2014 6:06am 35.5 % December 03, 2014 6:30am MEAN CORPUSCULAR VOLUME(82.0-100.0 FL) 100.0 FL December 01, 2014 6:06am 100.0 FL December 03, 2014 6:30am 05909-7: MEAN CORPUSCULAR HEMOGLOBIN(26.0-34.0 PG) 33.0 PG December 01, 2014 6 :06am 33.0 PG December 03, 2014 6:30am MEAN CORPUSCULAR HGB CONC(31.5-36.5 G/DL) 33.0 G/DL December 01, 2014 6:06am 33.0 G/DL December 03, 2014 6:30am RED CELL DISTRIBUTION WIDTH(11.5-14.5 %) 14.2 % December 01, 2014 6:06am 14.0 % December 03, 2014 6:30am 777-3: PLATELET COUNT(150-450 10E3/UL) 169 10E3/UL December 01, 2014 6:06am 138 10E3/UL December 03, 2014 6:30am MEAN PLATELET VOLUME(8.2-12.4 FL) 9.7 FL December 01, 2014 6:06am 10.6 FL December 03, 2014 6:30am 770-8: NEUTROPHILS % (AUTO)(40-70 %) 89 % December 01, 2014 6:06am 85 % December 03, 2014 6:30am LYMPHOCYTES % (AUTO)(15-45 %) 4 % December 01, 2014 6:06am 5 % December 03, 2014 6:30am 5905-5: MONOCYTES % (AUTO)(2-10 %) 6 % December 01, 2014 6:06am 6 % December 03, 2014 6:30am 713-8: EOSINOPHILS % (AUTO)(0-6 %) 1 % December 01, 2014 6:06am 3 % December 03, 2014 6:30am 706-2: BASOPHILS % (AUTO)(0-1 %) 0 % December 01, 2014 6:06am 0 % December 03, 2014 6:30am 10210-8: IMMATURE GRANS % (AUTO)(0-0 %) 1 % December 01, 2014 6:06am 1 % December 03, 2014 6:30am NUCLEATED RBCS (AUTO)(0-0 %) 0 % December 01, 2014 6:06am 0 % December 03, 2014 6:30am 751-8: NEUTROPHILS # (AUTO)(2.5-7.5 10E3/UL) 11.5 10E3/UL December 01, 2014 6: 06am 7.9 10E3/UL December 03, 2014 6:30am 39050-9: LYMPHOCYTES # (AUTO)(1.0-4.0 10E3/UL) 0.5 10E3/UL December 01, 2014 6 :06am 0.5 10E3/UL December 03, 2014 6:30am 742-7: MONOCYTES # (AUTO)(0.2-0.8 10E3/UL) 0.8 10E3/UL December 01, 2014 6: 06am 0.5 10E3/UL December 03, 2014 6:30am 711-2: EOSINOPHILS # (AUTO)(0.0-0.4 10E3/UL) 0.1 10E3/UL December 01, 2014 6: 06am 0.3 10E3/UL December 03, 2014 6:30am 704-7: BASOPHILS # (AUTO)(0.0-0.2 10E3/UL) 0.0 10E3/UL December 01, 2014 6: 06am 0.0 10E3/UL December 03, 2014 6:30am IMMATURE GRANS # (AUTO)(0.0-0.0 10E3/UL) 0.1 10E3/UL December 01, 2014 6:06am 0.1 10E3/UL December 03, 2014 6:30am DIFF TYPE AUTOMATED December 01, 2014 6:06am AUTOMATED December 03, 2014 6:30am CBC WITH REFLEXED MANUAL DIFF WHITE BLOOD COUNT(4.0-11.0 10E3/UL) 17.6 10E3/UL November 30, 2014 5:37am 14.3 10E3/UL December 02, 2014 12:10pm RED BLOOD COUNT(4.50-5.90 10E6/UL) 4.54 10E6/UL November 30, 2014 5:37am 3.85 10E6/UL December 02, 2014 12:10pm HEMOGLOBIN(13.5-17.5 G/DL) 15.2 G/DL November 30, 2014 5:37am 12.8 G/DL December 02, 2014 12:10pm HEMATOCRIT(41.0-53.0 %) 44.2 % November 30, 2014 5:37am 38.7 % December 02, 2014 12:10pm MEAN CORPUSCULAR VOLUME(82.0-100.0 FL) 97.4 FL November 30, 2014 5:37am 100.5 FL December 02, 2014 12:10pm 85264-1: MEAN CORPUSCULAR HEMOGLOBIN(26.0-34.0 PG) 33.5 PG November 30, 2014 5 :37am 33.2 PG December 02, 2014 12:10pm MEAN CORPUSCULAR HGB CONC(31.5-36.5 G/DL) 34.4 G/DL November 30, 2014 5:37am 33.1 G/DL December 02, 2014 12:10pm RED CELL DISTRIBUTION WIDTH(11.5-14.5 %) 14.0 % November 30, 2014 5:37am 14.5 % December 02, 2014 12:10pm 777-3: PLATELET COUNT(150-450 10E3/UL) 212 10E3/UL November 30, 2014 5:37am 136 10E3/UL December 02, 2014 12:10pm MEAN PLATELET VOLUME(8.2-12.4 FL) 10.5 FL November 30, 2014 5:37am 9.8 FL December 02, 2014 12:10pm DIFF TYPE MANUAL November 30, 2014 5:37am MANUAL December 02, 2014 12:10pm NEUTROPHIL % (MANUAL)(40-70 %) 92 % November 30, 2014 5:37am 96 % December 02, 2014 12:10pm BANDS%(0-3 %) 2 % December 02, 2014 12:10pm LYMPHOCYTES % (MANUAL)(15-45 %) 3 % November 30, 2014 5:37am 0 % December 02, 2014 12:10pm MONOCYTES % (MANUAL)(2-10 %) 4 % November 30, 2014 5:37am 1 % December 02, 2014 12:10pm EOSINOPHILS % (MANUAL)(0-6 %) 0 % November 30, 2014 5:37am 1 % December 02, 2014 12:10pm 01711-9: BASOPHILS % (MANUAL)(0-1 %) 1 % November 30, 2014 5:37am 0 % December 02, 2014 12:10pm NUCLEATED RBCS (MANUAL)(0-0 %) 0 % November 30, 2014 5:37am 0 % December 02, 2014 12:10pm 753-4: NEUTROPHILS # (MANUAL)(2.5-7.5 10E3/UL) 16.2 10E3/UL November 30, 2014 5:37am 14.0 10E3/UL December 02, 2014 12:10pm 732-8: LYMPHOCYTES # (MANUAL)(1.0-4.0 10E3/UL) 0.5 10E3/UL November 30, 2014 5 :37am 743-5: MONOCYTES # (MANUAL)(0.2-0.8 10E3/UL) 0.7 10E3/UL November 30, 2014 5: 37am 0.1 10E3/UL December 02, 2014 12:10pm 712-0: EOSINOPHILS # (MANUAL)(0.0-0.4 10E3/UL) 0.1 10E3/UL December 02, 2014 12:10pm 705-4: BASOPHILS # (MANUAL)(0.0-0.2 10E3/UL) 0.2 10E3/UL November 30, 2014 5: 37am 0.0 10E3/UL December 02, 2014 12:10pm 9317-9: PLATELET ESTIMATE ADEQUATE November 30, 2014 5:37am ADEQUATE December 02, 2014 12:10pm 11378-0: WBC MORPHOLOGY COMMENT NORMAL November 30, 2014 5:37am NORMAL December 02, 2014 12:10pm 6742-1: RBC MORPHOLOGY COMMENT NORMAL November 30, 2014 5:37am NORMAL December 02, 2014 12:10pm 97860-0: PLATELET MORPHOLOGY COMMENT NORMAL November 30, 2014 5:37am NORMAL December 02, 2014 12:10pm 21676-1: PROTHROMBIN TIME WITH INR PROTHROMBIN TIME(12.1-14.0 SEC) 14.1 SEC November 30, 2014 5:57am 14.0 SEC November 30, 2014 9:26am 17.6 SEC December 01, 2014 6:06am 24.4 SEC December 02, 2014 8:20am 26.9 SEC December 03, 2014 8:30am 26282-1: INR 1.08 November 30, 2014 5:57am Result Comments: INR reference interval applies to patients on anticoagulant therapy. Suggested INR therapeutic range for oral anticoagulant therapy: (Stabilized anticoagulated patients) Routine Therapy: 2.0 to 3.0 Recurrent Myocardial Infarction: 2.5 to 3.5 Mechanical Prosthetic Valves: 2.5 to 3.5 1.07 November 30, 2014 9:26am Result Comments: INR reference interval applies to patients on anticoagulant therapy. Suggested INR therapeutic range for oral anticoagulant therapy: (Stabilized anticoagulated patients) Routine Therapy: 2.0 to 3.0 Recurrent Myocardial Infarction: 2.5 to 3.5 Mechanical Prosthetic Valves: 2.5 to 3.5 1.43 December 01, 2014 6:06am Result Comments: INR reference interval applies to patients on anticoagulant therapy. Suggested INR therapeutic range for oral anticoagulant therapy: (Stabilized anticoagulated patients) Routine Therapy: 2.0 to 3.0 Recurrent Myocardial Infarction: 2.5 to 3.5 Mechanical Prosthetic Valves: 2.5 to 3.5 2.16 December 02, 2014 8:20am Result Comments: INR reference interval applies to patients on anticoagulant therapy. Suggested INR therapeutic range for oral anticoagulant therapy: (Stabilized anticoagulated patients) Routine Therapy: 2.0 to 3.0 Recurrent Myocardial Infarction: 2.5 to 3.5 Mechanical Prosthetic Valves: 2.5 to 3.5 2.45 December 03, 2014 8:30am Result Comments: INR reference interval applies to patients on anticoagulant therapy. Suggested INR therapeutic range for oral anticoagulant therapy: (Stabilized anticoagulated patients) Routine Therapy: 2.0 to 3.0 Recurrent Myocardial Infarction: 2.5 to 3.5 Mechanical Prosthetic Valves: 2.5 to 3.5 PARTIAL THROMBOPLASTIN TIME PARTIAL THROMBOPLASTIN TIME(22.2-37.4 SEC) 27.0 SEC November 30, 2014 5:57am UA WITH SCREEN FOR CULTURE 5778-6: COLOR,URINE YELLOW November 30, 2014 6:28am 42730-1: CLARITY,URINE CLEAR November 30, 2014 6:28am GLUCOSE, URINE(NEGATIVE MG/DL) NEGATIVE MG/DL November 30, 2014 6:28am URINE BILIRUBIN(NEGATIVE) NEGATIVE November 30, 2014 6:28am 75837-5: KETONES,URINE(NEGATIVE MG/DL) NEGATIVE MG/DL November 30, 2014 6:28am 2965-2: URINE SPECIFIC GRAVITY(1.001-1.035) 1.015 November 30, 2014 6:28am 61704-8: URINE BLOOD(NEGATIVE) NEGATIVE November 30, 2014 6:28am 2756-5: URINE PH(5.0-9.0) 8.0 November 30, 2014 6:28am URINE PROTEIN(Less than 20 MG/DL) 30 MG/DL November 30, 2014 6:28am URINE UROBILINOGEN(0.2-1.0 MG/DL) 0.2 MG/DL November 30, 2014 6:28am URINE NITRITE(NEGATIVE) NEGATIVE November 30, 2014 6:28am 5799-2: LEUKOCYTE ESTERASE ,URINE(NEGATIVE) NEGATIVE November 30, 2014 6:28am 630-4: URINE CULTURE NOT INDICATED November 30, 2014 6:28am URINE MICROSCOPIC REQUIRED YES November 30, 2014 6:28am URINE WBCS(/HPF) 0-3 /HPF November 30, 2014 6:28am 69386-2: URINE RBCS(/HPF) 0-3 /HPF November 30, 2014 6:28am 03093-4: URINE EPITHELIAL CELLS(/HPF) 0-3 /HPF November 30, 2014 6:28am BACTERIA,URINE(/HPF) NONE SEEN /HPF November 30, 2014 6:28am URINE CRYSTALS(/HPF) 1+ AMORPHOUS /HPF November 30, 2014 6:28am URINE CASTS(/LPF) NONE SEEN /LPF November 30, 2014 6:28am URINE COMMENTS TRACE MUCOUS November 30, 2014 6:28am 20876-0: COMPLETE METABOLIC PROFILE GLUCOSE(70-110 MG/DL) 141 MG/DL November 30, 2014 5:57am 107 MG/DL December 03, 2014 6:30am BLOOD UREA NITROGEN(6-20 MG/DL) 16 MG/DL November 30, 2014 5:57am 16 MG/DL December 03, 2014 6:30am CREATININE(0.50-1.20 MG/DL) 0.74 MG/DL November 30, 2014 5:57am 0.69 MG/DL December 03, 2014 6:30am 41191-4: EST GLOMERULAR FILTRATION RATE(Greater than or equal to 60) Greater than or equal to 60 November 30, 2014 5:57am Result Comments: If the patient is of -[place] descent/extraction multiply the eGFR value by 1.212 to obtain the actual eGFR. >=60 mg/dL Normal 30-59 mg/dL Moderate Kidney Disease 15-29 mg/dL Severe Kidney Disease <15 mg/dL Kidney Failure Greater than or equal to 60 December 03, 2014 6:30am Result Comments: If the patient is of -[place] descent/extraction multiply the eGFR value by 1.212 to obtain the actual eGFR. >=60 mg/dL Normal 30-59 mg/dL Moderate Kidney Disease 15-29 mg/dL Severe Kidney Disease <15 mg/dL Kidney Failure BUN CREATININE RATIO(10.0-20.0 RATIO) 22.0 RATIO November 30, 2014 5:57am 23.0 RATIO December 03, 2014 6:30am SODIUM(135-145 MMOL/L) 136 MMOL/L November 30, 2014 5:57am Result Comments: --- 11/30/14624 --- CORRECTED REPORT NA previously reported as: 132 L MMOL/L 134 MMOL/L December 03, 2014 6:30am POTASSIUM(3.6-5.0 MMOL/L) 3.6 MMOL/L November 30, 2014 5:57am 3.5 MMOL/L December 03, 2014 6:30am CHLORIDE(101-111 MMOL/L) 98 MMOL/L November 30, 2014 5:57am 103 MMOL/L December 03, 2014 6:30am 2028-9: CO2(21-31 MMOL/L) 24.0 MMOL/L November 30, 2014 5:57am 24.0 MMOL/L December 03, 2014 6:30am 58969-0: ANION GAP(8-18) 18 November 30, 2014 5:57am Result Comments: --- 11/30/14624 --- CORRECTED REPORT AGAP previously reported as: 14 11 December 03, 2014 6:30am OSMO CALCULATED(270.0-290.0) 275.5 November 30, 2014 5:57am Result Comments: --- 11/30/14624 --- CORRECTED REPORT OSMOC previously reported as: 268.1 L 269.9 December 03, 2014 6:30am CALCIUM(8.5-10.5 MG/DL) 8.9 MG/DL November 30, 2014 5:57am 8.2 MG/DL December 03, 2014 6:30am BILIRUBIN,TOTAL(0.1-1.2 MG/DL) 1.0 MG/DL November 30, 2014 5:57am 0.6 MG/DL December 03, 2014 6:30am ALKALINE PHOSPHATASE(42-121 IU/L) 54 IU/L November 30, 2014 5:57am 40 IU/L December 03, 2014 6:30am ASPARTATE AMINO TRANSFERASE(10-42 IU/L) 31 IU/L November 30, 2014 5:57am 23 IU/L December 03, 2014 6:30am ALANINE AMINOTRANSFERASE(10-60 IU/L) 22 IU/L November 30, 2014 5:57am 17 IU/L December 03, 2014 6:30am 72829-2: TOTAL PROTEIN(6.4-8.2 G/DL) 8.1 G/DL November 30, 2014 5:57am 6.0 G/DL December 03, 2014 6:30am ALBUMIN(3.5-5.5 G/DL) 4.3 G/DL November 30, 2014 5:57am 3.2 G/DL December 03, 2014 6:30am 2336-6: GLOBULIN(2.4-3.6) 3.8 November 30, 2014 5:57am 2.8 December 03, 2014 6:30am ALBUMIN/GLOBULIN RATIO(0.9-1.8 RATIO) 1.1 RATIO November 30, 2014 5:57am 1.1 RATIO December 03, 2014 6:30am BASIC METABOLIC PANEL GLUCOSE(70-110 MG/DL) 113 MG/DL December 01, 2014 6:06am 143 MG/DL December 02, 2014 12:10pm BLOOD UREA NITROGEN(6-20 MG/DL) 12 MG/DL December 01, 2014 6:06am 13 MG/DL December 02, 2014 12:10pm CREATININE(0.50-1.20 MG/DL) 0.70 MG/DL December 01, 2014 6:06am 0.70 MG/DL December 02, 2014 12:10pm 63968-7: EST GLOMERULAR FILTRATION RATE(Greater than or equal to 60) Greater than or equal to 60 December 01, 2014 6:06am Result Comments: If the patient is of -[place] descent/extraction multiply the eGFR value by 1.212 to obtain the actual eGFR. >=60 mg/dL Normal 30-59 mg/dL Moderate Kidney Disease 15-29 mg/dL Severe Kidney Disease <15 mg/dL Kidney Failure Greater than or equal to 60 December 02, 2014 12:10pm Result Comments: If the patient is of -[place] descent/extraction multiply the eGFR value by 1.212 to obtain the actual eGFR. >=60 mg/dL Normal 30-59 mg/dL Moderate Kidney Disease 15-29 mg/dL Severe Kidney Disease <15 mg/dL Kidney Failure BUN CREATININE RATIO(10.0-20.0 RATIO) 17.0 RATIO December 01, 2014 6:06am 19.0 RATIO December 02, 2014 12:10pm SODIUM(135-145 MMOL/L) 136 MMOL/L December 01, 2014 6:06am 133 MMOL/L December 02, 2014 12:10pm POTASSIUM(3.6-5.0 MMOL/L) 3.8 MMOL/L December 01, 2014 6:06am 3.8 MMOL/L December 02, 2014 12:10pm CHLORIDE(101-111 MMOL/L) 103 MMOL/L December 01, 2014 6:06am 103 MMOL/L December 02, 2014 12:10pm 2028-9: CO2(21-31 MMOL/L) 24.0 MMOL/L December 01, 2014 6:06am 24.0 MMOL/L December 02, 2014 12:10pm 89503-3: ANION GAP(8-18) 13 December 01, 2014 6:06am 10 December 02, 2014 12:10pm OSMO CALCULATED(270.0-290.0) 272.5 December 01, 2014 6:06am 269.0 December 02, 2014 12:10pm CALCIUM(8.5-10.5 MG/DL) 8.8 MG/DL December 01, 2014 6:06am 8.2 MG/DL December 02, 2014 12:10pm 50333-2: [place] [address]-3: CARDIAC TROPONIN I(0.01-0.04 NG/ML) 0.02 NG/ML November 30, 2014 5: 57am Result Comments: REFERENCE RANGES: NEGATIVE < 0.04 NG/ML POSSIBLE MYCARDIAL INVOLVEMENT >/=0.04 NG/ML INTERPRET TROPONIN I RESULT IN LIGHT OF THE TOTAL CLINICAL PRESENTATION INCLUDING CLINICAL HISTORY. ANY CONDITION RESULTING IN MYOCARDIAL INJURY CAN POTENTIALLY ELEVATE TROPONIN I LEVELS ABOVE EXPECTED NORMAL RANGES. NOTE NEW REFERENCE RANGE 3040-3: LIPASE 3040-3: LIPASE(22-51 U/L) 32 U/L November 30, 2014 5:57am LACTIC ACID LACTIC ACID(0.5-2.0 MMOL/L) 1.9 MMOL/L December 02, 2014 12:10pm Microbiology Results Visit/Account #[id number] (November 30, 2014 5:31am - December 03, 2014 5:30pm) Procedure Result 85624-4: MRSA SCREEN FOR INFEC CONTROL 13912-5: MRSA SCREEN FOR INFEC CONTROL Result Instance On November 30, 2014 10: 05am Source: TRISTIN Special Result Comments: No growth Bloodbank Results Visit/Account #[id number] (November 30, 2014 5:31am - December 03, 2014 5:30pm) Test Result ABO/RH O POSITIVE on November 30, 2014 6:54am 40869-6: BLOOD TYPE ANTIBODY SCREEN NEGATIVE on November 30, 2014 6:54am ANTIBODY SCREEN Allergies and Adverse Reactions Allergies and Adverse Reactions Patient Unit Number: [id number] Agent Type Reaction Severity Status IODINATED CONTRAST MEDIA - IV DYE Drug Allergy throat started to close Severe Active PENICILLINS Drug Allergy SICK AND RASH Moderate Active SULFASALAZINE Drug Allergy caused A-Fib Moderate Active INFLUENZA VIRUS VACC,SPECIFIC Drug Allergy sick for 3 months Moderate Active HYDROXYCHLOROQUINE Drug Allergy sores on legs, feet and mouth Severe Active Problem List Problem List Visit/Account #[id number] (November 30, 2014 5:31am - December 03, 2014 5:30pm) Acute Problems: Code/Condition Comments Documented Start Documented Code(s) Date Resolved Date Diverticulitis ICD10: K57.92 Diverticulitis of intestine ICD9: 562.11 Diverticulitis of intestine SNOMED: 108629001 Diverticulitis of intestine Abdominal aortic aneurysm (AAA) >39 mm diameter ICD10: I71.4 Abdominal aortic aneurysm greater than 39 mm in diameter ICD9: 441.4 Abdominal aortic aneurysm greater than 39 mm in diameter SNOMED: 555730062 Abdominal aortic aneurysm greater than 39 mm in diameter Sepsis ICD10: A41.9 Sepsis ICD9: 038.9 Sepsis SNOMED: 73935945 Sepsis Leukocytosis ICD10: D72.829 Leukocytosis ICD9: 288.60 Leukocytosis SNOMED: 815217962 Leukocytosis Abdominal pain, epigastric ICD10: R10.13 Epigastric pain ICD9: 789.06 Epigastric pain SNOMED: 02797603 Epigastric pain Abdominal pain, acute, right upper quadrant ICD10: R10.10 Acute abdominal pain in right upper quadrant ICD9: 789.01 Acute abdominal pain in right upper quadrant SNOMED: 901282524 Acute abdominal pain in right upper quadrant Basal cell carcinoma of scalp ICD10: C44.41 Basal cell carcinoma of scalp ICD9: 173.41 Basal cell carcinoma of scalp SNOMED: 653615835 Basal cell carcinoma of scalp Chronic Problems: Rheumatoid arthritis ICD10: M06.9 Rheumatoid arthritis ICD9: 714.0 Rheumatoid arthritis SNOMED: 87189594 Rheumatoid arthritis Chronic constipation ICD10: K59.00 Chronic constipation ICD9: 564.00 Chronic constipation SNOMED: 823219174 Chronic constipation Urinary frequency ICD10: R35.0 Increased frequency of urination ICD9: 788.41 Increased frequency of urination SNOMED: 395006133 Increased frequency of urination Plan of Care Plan Of Care Visit/Account #[id number] (November 30, 2014 5:31am - December 03, 2014 5:30pm) Patient Instructions Instructions DI for Diverticulitis DI for Warfarin Therapy DI for Biliary Colic Vital Signs Vital Signs Visit/Account #[id number] (November 30, 2014 5:31am - December 03, 2014 5:30pm) Sign First Result Last Result Code(s) Blood Pressure 156/ 79 mm[Hg] On November 30, 2014 9:10am 114/ 55 mm[Hg] On December 03, 2014 3:31pm 8480-6 BP Systolic Heart Rate/Pulse Pulse Rate (adult): 82 /min On November 30, 2014 9:10am Pulse Rate (adult): 85 /min On December 03, 2014 3:31pm 8867-4 Heart Rate 8893-0 Pulse rate Respiratory Rate Respiratory Rate: 18 /min On November 30, 2014 9:10am Respiratory Rate: 20 /min On December 03, 2014 3:31pm 9279-1 Respiratory rate Temperature in Fahrenheit Temperature (Fahrenheit): 98.3 [degF] On November 5:34am Temperature (Fahrenheit): 97.8 [degF] On December 03, 2014 3: 31pm 8310-5 Body Temperature Weight in Kilograms Weight (Kilograms): 134.09 kg On November 30, 2014 5:34am 3141-9 Weight Measured 88060-5 Body weight measured in kilograms Functional Status Functional and Cognitive Status No Functional Status Data Medications Home Medications - Medications that the patient was taking prior to arrival at the hospital Visit/Account #[id number] (November 30, 2014 5:31am - December 03, 2014 5:30pm) Medication Route Sig/Schedule Precondition/Indication Comments/ Instructions Codes ASPIRIN(ASPIRIN) 325 MG TABLET. ORAL DAILY Rx Instructions: Aspirin 325 MG Delayed Release Oral Tablet (RxNorm): 048495 Dose: 325 MG takes at 3:00 am ASPIRIN (ASPIRIN) NDC: 61063578069 Deltasone(PREDNISOLONE, MICRONIZED) 5 MG TABLET ORAL DAILY Prednisone 5 MG Oral Tablet (RxNorm): 278051 Dose: 5-10 MG Deltasone (PREDNISOLONE, MICRONIZED) NDC: 41684308736 METHOTREXATE SODIUM(MethoTREXATE SODIUM) 2.5 MG TABLET ORAL Fridays Rx Instructions: Methotrexate 2.5 MG Oral Tablet (RxNorm): 979841 Dose: 10 MG *total wkly dose is 20mg, pt splits between 2 days* METHOTREXATE SODIUM (MethoTREXATE SODIUM) NDC: 96825954120 COUMADIN(WARFARIN SODIUM) 5 MG TAB ORAL SuMoWeFrSa@1800 Warfarin Sodium 5 MG Oral Tablet [Coumadin] (RxNorm): 719595 Dose: 5 MG COUMADIN (WARFARIN SODIUM) NDC: 64259279979 COUMADIN(WARFARIN SODIUM) 7.5 MG TAB ORAL TuTh@1800 Warfarin Sodium 7.5 MG Oral Tablet [Coumadin] (RxNorm): 817987 Dose: 7.5 MG COUMADIN (WARFARIN SODIUM) NDC: 07917896447 Bumetanide(BUMETANIDE) 2 MG TABLET ORAL WEEKLY ON SUNDAY Bumetanide 2 MG Oral Tablet (RxNorm): 347012 Dose: 2 MG Bumetanide (BUMETANIDE) NDC: 41722289331 VITAMIN B COMPLEX(VITAMIN B COMPLEX) 1 EACH TABLET ORAL DAILY VITAMIN B COMPLEX (VITAMIN B COMPLEX) NDC: 95155168597 Dose: 2 TAB Coq-10(UBIDECARENONE/OMEGA-3/VIT E) 100 MG CAPSULE ORAL DAILY Coq-10 ( UBIDECARENONE/OMEGA-3/VIT E) NDC: 15565969969 Dose: 200 MG Vitamin D3(CHOLECALCIFEROL (VITAMIN D3)) 5000 UNIT TABLET ORAL DAILY Vitamin D3 (CHOLECALCIFEROL (VITAMIN D3)) NDC: 96567467507 Dose: 5000 UNIT Folic Acid(FOLIC ACID) 400 MCG TAB ORAL DAILY Folic Acid (FOLIC ACID) NDC: 10656782585 Dose: 1200 MCG NORCO 7.5-325 TABLET(HYDROcodone BIT/ACETAMINOPHEN) 1 TAB TABLET ORAL Q4H MODERATE PAIN Acetaminophen 325 MG / Hydrocodone Bitartrate 7.5 MG Oral Tablet (RxNorm): 026059 Dose: 0 TAB NORCO 7.5-325 TABLET (HYDROcodone BIT/ACETAMINOPHEN) NDC: 51927729417 MILK OF MAGNESIA(MAGNESIUM HYDROXIDE) 400 MG/5 ML ORAL.SUSP ORAL DAILY CONSTIPATION Magnesium Hydroxide 80 MG/ML Oral Suspension (RxNorm): 538233 Dose: 30 ML MILK OF MAGNESIA (MAGNESIUM HYDROXIDE) NDC: 88682953533 TRAMADOL HCL(TraMADol HCL) 100 MG TAB.ER.24H ORAL EVERY 6 HOURS 24 HR tramadol hydrochloride 100 MG Extended Release Oral Tablet (RxNorm): 254779 Dose: 100 MG TRAMADOL HCL (TraMADol HCL) NDC: 20436967422 CALCIUM 600 MG PLUS VIT D TAB(CALC/D3/MAG/ZN/TAG MARKER/SAUL/BORON) 1 EACH TABLET ORAL TWICE A DAY CALCIUM 600 MG PLUS VIT D TAB (CALC/D3/MAG/ZN/TAG MARKER/SAUL/ BORON) NDC: 39000025197 Dose: 2 EACH Aspirin Low Dose(ASPIRIN) 81 MG TABLET.DR ORAL DAILY Aspirin 81 MG Delayed Release Oral Tablet (RxNorm): 470511 Dose: 81 MG Aspirin Low Dose (ASPIRIN) NDC: 07246180714 METHOTREXATE SODIUM(MethoTREXATE SODIUM) 2.5 MG TABLET ORAL Sunday Rx Instructions: Methotrexate 2.5 MG Oral Tablet (RxNorm): 167967 Dose: 10 MG *total wkly dose is 20mg, pt splits between 2 days* METHOTREXATE SODIUM (MethoTREXATE SODIUM) NDC: 11969386343 VITAMIN C(ASCORBIC ACID) 500 MG TAB.CHEW ORAL DAILY Ascorbic Acid 500 MG Chewable Tablet (RxNorm): 003505 Dose: 1000 MG VITAMIN C (ASCORBIC ACID) NDC: [id number] PROBIOTIC(LACTOBACILLUS COMBO NO.11) 1 EACH CAP.SPRINK ORAL TWICE A DAY PROBIOTIC (LACTOBACILLUS COMBO NO.11) NDC: 18501871570 Dose: 1 EACH DIGESTIVE ENZYMES(ENZYMES,DIGESTIVE) 1 EACH CAPSULE ORAL DAILY DIGESTIVE ENZYMES (ENZYMES,DIGESTIVE) NDC: 70547917352 Dose: 1 EACH Inpatient/Ordered Medications - Medications administered during hospital visit Visit/Account #[id number] (November 30, 2014 5:31am - December 03, 2014 5:30pm) Medication Route Sig/Schedule Precondition/Indication Comments/ Instructions Codes IV Medication INTRAVEN .Q1H (Rate: 1000 MLS/HR Duration: 1 HR) Rx Order Comments: Carriers: Order placed as verified: Carriers: Allergies/Duplicates/Interactions differ from job order clerk Sodium Chloride 0.154 MEQ/ML Injectable Solution (RxNorm): 817210 Dose Warnings differ from job order clerk NORMAL SALINE(SODIUM CHLORIDE) 1000 ML INJECTION NORMAL SALINE ( SODIUM CHLORIDE) NDC: 83499488108 Dose: 1000 ML IV Medication INTRAVEN NOW (Rate: 100 MLS/HR Duration: 30 MIN) Label Comments: Carriers: DO NOT REFRIGERATE Carriers: ACTIVATE VIAL PRIOR TO ADMINISTRATION Ceftriaxone 20 MG/ML Injectable Solution (RxNorm): 243697 ROCEPHIN 1 GM/50 ML(CefTRIAXone SOD) 1 GM/50 ML INJECTION ROCEPHIN 1 GM/50 ML (CefTRIAXone SOD) NDC: 96714480564 Dose: 50 ML IV Medication INTRAVEN NOW (Rate: 100 MLS/HR Duration: 1 HR) Rx Order Comments: Carriers: Order placed as verified: Carriers: Allergies/Duplicates/Interactions differ from job order clerk Metronidazole 5 MG/ML Injectable Solution (RxNorm): 810442 Dose Warnings differ from job order clerk FLAGYL 500 MG/100 ML(METRONIDAZOLE/SOD CHL) 500 MG/100 ML INJECTION FLAGYL 500 MG/100 ML (METRONIDAZOLE/SOD CHL) NDC: 88473332146 Dose: 100 ML Label Comments: DO NOT REFRIGERATE Expires 24 HRS after package opened IV Medication INTRAVEN .Q8H (Rate: 125 MLS/HR Duration: 8 HR) Carriers: Carriers: Sodium Chloride 0.154 MEQ/ML Injectable Solution (RxNorm): 348653 NORMAL SALINE(SODIUM CHLORIDE) 1000 ML INJECTION NORMAL SALINE ( SODIUM CHLORIDE) NDC: 09188154157 Dose: 1000 ML NORCO 5-325(HYDROcodone BIT/ACETAMINOPHEN) 1 TAB TAB ORAL Q4H PRN Reason: MODERATE PAIN Label Comments: Acetaminophen 325 MG / Hydrocodone Bitartrate 5 MG Oral Tablet (RxNorm): 281774 Dose: 0 TAB Do not exceed 4000 mg acetaminophen/24 hours. 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 SENOKOT (SENNA) NDC: 32399882922 IV Medication INTRAVEN .[id number] (Rate: 80 MLS/HR Duration: 12 HR 30 MIN) Carriers: Carriers: Sodium Chloride 0.154 MEQ/ML Injectable Solution (RxNorm): 022818 NORMAL SALINE(SODIUM CHLORIDE) 1000 ML INJECTION NORMAL SALINE ( SODIUM CHLORIDE) NDC: 47278467808 Dose: 1000 ML ECOTRIN(ASPIRIN) 325 MG TAB ORAL DAILY Aspirin 325 MG Delayed Release Oral Tablet (RxNorm): 356910 Dose: 325 MG ECOTRIN (ASPIRIN) NDC: 37195080703 FOLIC ACID 400 MCG TAB ORAL DAILY Folic Acid 0.4 MG Oral Tablet (RxNorm) : Dose: 1200 MCG (FOLIC ACID) NDC: 96350955817 DELTASONE(PredniSONE) 5 MG TAB ORAL DAILY Label Comments: Prednisone 5 MG Oral Tablet (RxNorm): 849972 Dose: 5 MG TAKE WITH FOOD OR MILK DELTASONE (PredniSONE) NDC: 89330929544 ULTRAM(TraMADol HCL) 50 MG TAB ORAL 4 TIMES DAILY PRN Reason: BREAKTHROUGH PAIN Label Comments: tramadol hydrochloride 50 MG Oral Tablet (RxNorm): 788216 Dose: 50 MG MAY INCREASE FALL RISK ULTRAM (TraMADol HCL) NDC: 57779768910 VITAMIN B12 + COMPLEX(VITAMIN B COMPLEX) 1 TAB TAB ORAL DAILY VITAMIN B12 + COMPLEX (VITAMIN B COMPLEX) NDC: 83651974998 Dose: 1 TAB IV Medication INTRAVEN Q8S (Rate: 100 MLS/HR Duration: 1 HR) Clinical Indication: ABX non-surgical pt Label Comments: Carriers: DO NOT REFRIGERATE Carriers: Expires 24 HRS after package opened Metronidazole 5 MG/ML Injectable Solution (RxNorm): 234603 FLAGYL 500 MG/100 ML(METRONIDAZOLE/SOD CHL) 500 MG/100 ML INJECTION FLAGYL 500 MG/100 ML (METRONIDAZOLE/SOD CHL) NDC: 69631647111 Dose: 100 ML COUMADIN(WARFARIN SOD) 10 MG TAB ORAL DAILY@18 Warfarin Sodium 10 MG Oral Tablet [Coumadin] (RxNorm): 333484 Dose: 10 MG COUMADIN (WARFARIN SOD) NDC: 04189506055 LOVENOX(ENOXAPARIN) 40 MG/0.4 ML INJECTION SUBCUTANEOUSLY DAILY@07 Label Comments: 0.4 ML Enoxaparin sodium 100 MG/ML Prefilled Syringe [Lovenox] ( RxNorm): 518912 Dose: 0.4 ML INJECT SC INTO ABDOMINAL WALL ONLY. LOVENOX (ENOXAPARIN) NDC: 43514689608 IV Medication INTRAVEN Q24H (Rate: 100 MLS/HR Duration: 30 MIN) Clinical Indication: ABX non-surgical pt Label Comments: Additives: REFRIGERATE Additives: Ceftriaxone 350 MG/ML Injectable Solution (RxNorm): 465631 ROCEPHIN INJ(CefTRIAXone SOD) 1000 MG INJECTION ROCEPHIN INJ ( CefTRIAXone SOD) NDC: 46718595393 Dose: 1000 MG Carriers: Carriers: Sodium Chloride 0.154 MEQ/ML Injectable Solution (RxNorm): 641050 SODIUM CHLORIDE 50 ML INJECTION Dose: 50 ML (SODIUM CHLORIDE) NDC: 87574458612 MYCOSTATIN 696438 UNIT/GM PWD(NYSTATIN) 15 GM POWDER TOPICALLY 3 TIMES A DAY Special Dose Instructions: Nystatin 100 UNT/MG Topical Powder [Nystop] ( RxNorm): 568916 Dose: 0 GM 1 APPLICATION TO MYCOSTATIN 102119 UNIT/GM PWD (NYSTATIN) NDC: 80741919316 COUMADIN(WARFARIN SOD) 7.5 MG TAB ORAL DAILY@18 Warfarin Sodium 7.5 MG Oral Tablet [Coumadin] (RxNorm): 698196 Dose: 7.5 MG COUMADIN (WARFARIN SOD) NDC: 00140958408 VIBRAMYCIN(DOXYCYCLINE HYCLATE) 100 MG CAP ORAL TWICE A DAY Label Comments : doxycycline hyclate 100 MG Oral Capsule (RxNorm): 2426723 Dose: 100 MG Give with 8 oz of water. Patient should sit in upright position for at least 30 minutes after VIBRAMYCIN ( DOXYCYCLINE HYCLATE) NDC: 44461342728 administration to avoid esophageal ulceration. Discharge Medications - Medications that patient should continue to take. Review with physician Visit/Account #[id number] (November 30, 2014 5:31am - December 03, 2014 5:30pm) Medication Route Sig/Schedule Precondition/Indication Comments/ Instructions Codes Deltasone(PREDNISOLONE, MICRONIZED) 5 MG TABLET ORAL DAILY Prednisone 5 MG Oral Tablet (RxNorm): 033156 Dose: 5-10 MG Deltasone (PREDNISOLONE, MICRONIZED) NDC: 07885892327 METHOTREXATE SODIUM(MethoTREXATE SODIUM) 2.5 MG TABLET ORAL Fridays Rx Instructions: Methotrexate 2.5 MG Oral Tablet (RxNorm): 871589 Dose: 10 MG *total wkly dose is 20mg, pt splits between 2 days* METHOTREXATE SODIUM (MethoTREXATE SODIUM) NDC: 04180480379 COUMADIN(WARFARIN SODIUM) 5 MG TAB ORAL SuMoWeFrSa@1800 Warfarin Sodium 5 MG Oral Tablet [Coumadin] (RxNorm): 799414 Dose: 5 MG COUMADIN (WARFARIN SODIUM) NDC: 52653182849 COUMADIN(WARFARIN SODIUM) 7.5 MG TAB ORAL TuTh@1800 Warfarin Sodium 7.5 MG Oral Tablet [Coumadin] (RxNorm): 666314 Dose: 7.5 MG COUMADIN (WARFARIN SODIUM) NDC: 37296394936 Bumetanide(BUMETANIDE) 2 MG TABLET ORAL WEEKLY ON SUNDAY Bumetanide 2 MG Oral Tablet (RxNorm): 730141 Dose: 2 MG Bumetanide (BUMETANIDE) NDC: 20997354235 VITAMIN B COMPLEX(VITAMIN B COMPLEX) 1 EACH TABLET ORAL DAILY VITAMIN B COMPLEX (VITAMIN B COMPLEX) NDC: 05077526268 Dose: 2 TAB Coq-10(UBIDECARENONE/OMEGA-3/VIT E) 100 MG CAPSULE ORAL DAILY Coq-10 ( UBIDECARENONE/OMEGA-3/VIT E) NDC: 77942006090 Dose: 200 MG Vitamin D3(CHOLECALCIFEROL (VITAMIN D3)) 5000 UNIT TABLET ORAL DAILY Vitamin D3 (CHOLECALCIFEROL (VITAMIN D3)) NDC: 98719742053 Dose: 5000 UNIT Folic Acid(FOLIC ACID) 400 MCG TAB ORAL DAILY Folic Acid (FOLIC ACID) NDC: 02043615022 Dose: 1200 MCG NORCO 7.5-325 TABLET(HYDROcodone BIT/ACETAMINOPHEN) 1 TAB TABLET ORAL Q4H MODERATE PAIN Acetaminophen 325 MG / Hydrocodone Bitartrate 7.5 MG Oral Tablet (RxNorm): 907021 Dose: 0 TAB NORCO 7.5-325 TABLET (HYDROcodone BIT/ACETAMINOPHEN) NDC: 13381514963 MILK OF MAGNESIA(MAGNESIUM HYDROXIDE) 400 MG/5 ML ORAL.SUSP ORAL DAILY CONSTIPATION Magnesium Hydroxide 80 MG/ML Oral Suspension (RxNorm): 140239 Dose: 30 ML MILK OF MAGNESIA (MAGNESIUM HYDROXIDE) NDC: 05545136103 TRAMADOL HCL(TraMADol HCL) 100 MG TAB.ER.24H ORAL EVERY 6 HOURS 24 HR tramadol hydrochloride 100 MG Extended Release Oral Tablet (RxNorm): 045486 Dose: 100 MG TRAMADOL HCL (TraMADol HCL) NDC: 52986583146 CALCIUM 600 MG PLUS VIT D TAB(CALC/D3/MAG/ZN/TAG MARKER/SAUL/BORON) 1 EACH TABLET ORAL TWICE A DAY CALCIUM 600 MG PLUS VIT D TAB (CALC/D3/MAG/ZN/TAG MARKER/SAUL/ BORON) NDC: 00079740905 Dose: 2 EACH Aspirin Low Dose(ASPIRIN) 81 MG TABLET.DR ORAL DAILY Aspirin 81 MG Delayed Release Oral Tablet (RxNorm): 991641 Dose: 81 MG Aspirin Low Dose (ASPIRIN) NDC: 78069543496 METHOTREXATE SODIUM(MethoTREXATE SODIUM) 2.5 MG TABLET ORAL Sunday Rx Instructions: Methotrexate 2.5 MG Oral Tablet (RxNorm): 316538 Dose: 10 MG *total wkly dose is 20mg, pt splits between 2 days* METHOTREXATE SODIUM (MethoTREXATE SODIUM) NDC: 61937185608 VITAMIN C(ASCORBIC ACID) 500 MG TAB.CHEW ORAL DAILY Ascorbic Acid 500 MG Chewable Tablet (RxNorm): 812694 Dose: 1000 MG VITAMIN C (ASCORBIC ACID) NDC: 32818793245 PROBIOTIC(LACTOBACILLUS COMBO NO.11) 1 EACH CAP.SPRINK ORAL TWICE A DAY PROBIOTIC (LACTOBACILLUS COMBO NO.11) NDC: 57736705860 Dose: 1 EACH DIGESTIVE ENZYMES(ENZYMES,DIGESTIVE) 1 EACH CAPSULE ORAL DAILY DIGESTIVE ENZYMES (ENZYMES,DIGESTIVE) NDC: 18152675741 Dose: 1 EACH History Of Encounters Encounters Visit/Account #[id number] (November 30, 2014 5:31am - December 03, 2014 5:30pm) Account Physican Of Reason For Visit Diagnosis Start Date/Time Stop Date/ Time Status Record Visit ER HARMONY AGUILAR MD 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 Discharge Instructions Discharge Instructions Visit/Account #[id number] (November 30, 2014 5:31am - December 03, 2014 5:30pm) DISCHARGE INSTRUCTIONS Physician Documentation PROVIDER INSTRUCTIONS Discharge Diet As Tolerated Discharge Activity/Weight Bearing Status As tolerated Other Discharge Instructions Your home medicines are resumed as noted. There are no antibiotics being given since it is most likely your symptoms were due to biliary colic as we discussed. There does not appear to be any evidence of diverticulitis on the CT scan or on your physical exam now and antibiotics are not helpful for biliary colic. Fatty, fried or greasy food may stimulate the gallbladder and cause recurrent problems. Discharge Diet As Tolerated Discharge Activity/Weight Bearing Status As tolerated Other Discharge Instructions Your home medicines are resumed as noted. There are no antibiotics being given since it is most likely your symptoms were due to biliary colic as we discussed. There does not appear to be any evidence of diverticulitis on the CT scan or on your physical exam now and antibiotics are not helpful for biliary colic. Fatty, fried or greasy food may stimulate the gallbladder and cause recurrent problems. REASON TO CALL PROVIDER Notify Physician if: Fever over 100.5 by mouth, increased abdominal pain, nausea, vomiting, black tarry bowel movement or other problems FOLLOW UP APPOINTMENTS Follow Up With Dr. Pearson on Saturday 12/09 at 2:45 PM Social History Social History No Social History Data. Immunizations Immunizations Patient Unit Number: [id number] Immunizations No immunizations recorded.
--- OUTSIDE RECORDS SUMMARY | 2017-03-15 16:14 | External Medical Summary | Continuity of Care Document ---
:1940 Author Organization [facility] Allergies Active Description Code Type Severity Reaction Onset Reported/ Identified Relationship Clinical to Patient Status Yes cephalexin 8095 Drug mild to Trouble 08/23/2016 moderate Breathing Yes ciprofloxaci 7428 Drug mild to Hives / 08/23/2016 n moderate Skin Rash Yes flu vaccine 54415 Drug mild to Nausea / 08/23/2016 [id number](5 9 moderate Vomiting yr up) Yes hydroxychlor 5338 Drug mild to Hives / 08/23/2016 oquine moderate Skin Rash Yes iodine 369 Drug mild to Altered 08/23/2016 moderate Heart Rate Yes methotrexate 36661 Drug mild to Hives / 08/23/2016 (PF) 5 moderate Skin Rash Yes Multaq 91409 Drug mild to Unknown 08/23/2016 1 moderate Yes penicillin 58461 Ingre mild to Hives / 08/23/2016 dient moderate Skin Rash Yes Pepcid 1802 Drug mild to Joint 08/23/2016 moderate Pain Yes sulfasalazin 6043 Drug mild to Trouble 08/23/2016 e moderate Breathing ~Altered Heart Rate Yes vancomycin 933 Drug mild to Hives / 08/23/2016 moderate Skin Rash Medications There is no data. Problems Date Dx Coded Attending Type Code Diagnosis Diagnosed By 08/31/2016 Jas Gonsalez B37.81 Candidal Esophagitis Procedures There is no data. Results There is no data. Encounters ACCT No. Visit Discharge Status Pt. Type Provider Facility Loc./Unit Complaint Date/Time 02/24/2016 02/24/2016 CLS Outpatie Peloquin, 17:26:47 23:59:59 gissel Allison [id number] 01/28/2016 01/28/2016 CLS Outpatie Peloquin, 07:52:25 23:59:59 gissel Allison [id number] 04/10/2016 05/10/2016 DIS Outpatie SIOBHAN SKIN CA 08 13:17:00 08:38:02 gissel FAM [id number] 08/29/2016 08/29/2016 DIS OutpatiPerla Milian OUTPT Esophagogastr 13:06:00 23:59:00 [id number] 02/13/2017 02/13/2017 CLS Outpatie Pearson 10:05:06 23:59:59 nt , Ryann Gay [id number] 07/18/2016 07/18/2016 CLS Outpatie Pearson 16:00:49 23:59:59 nt , Ryann Gay [id number] 05/22/2016 05/22/2016 CLS Outpatie Pearson 17:38:02 23:59:59 nt , Ryann Gya [id number] 05/02/2016 05/02/2016 CLS Outpatie Pearson 16:02:41 23:59:59 nt , Ryann Gay [id number] 04/28/2016 04/28/2016 CLS Outpatie Pearson 15:49:41 23:59:59 nt , Ryann Gay [id number] 04/17/2016 04/17/2016 CLS Outpatie Pearson 15:15:44 23:59:59 nt , Ryann Gay [id number] 03/29/2016 03/29/2016 CLS Outpatie Pearson 15:18:13 23:59:59 nt , Ryann Gay [id number] 02/29/2016 02/29/2016 CLS Outpatie Pearson 15:24:34 23:59:59 nt , Ryann Gay [id number] 09/30/2015 09/30/2015 CLS Outpatie Pearson 15:23:00 23:59:59 nt , Ryann Gay [id number] 08/18/2015 08/18/2015 CLS Outpatie Pearson 16:14:16 23:59:59 nt , Ryann Gay [id number] 04/16/2015 04/16/2015 CLS Outpatie Pearson 17:06:13 23:59:59 nt , Ryann Gay [id number] 01/25/2015 01/25/2015 CLS Outpatie Pearson 15:22:34 23:59:59 nt , Ryann Gay [id number] 12/11/2014 12/11/2014 CLS Outpatie Pearson 15:14:01 23:59:59 nt , Ryann Gay [id number] 10/28/2014 10/28/2014 CLS Outpatie Pearson 16:48:10 23:59:59 nt , Krystenkaterine R [id number] 09/17/2014 09/17/2014 CLS Outpatie Pearson 15:05:58 23:59:59 nt , Krystenkaterine R [id number] 07/14/2014 07/14/2014 CLS Outpatie Pearson 15:18:04 23:59:59 nt , Krystenkaterine R [id number] 07/06/2014 07/06/2014 CLS Outpatie Pearson 15:55:03 23:59:59 nt , Ryann R [id number] 03/05/2014 03/05/2014 CLS Outpatie Pearson 12:32:27 23:59:59 nt , Ryann R [id number] 02/10/2014 02/10/2014 CLS Outpatie Pearson 15:08:43 23:59:59 nt , Krystenkaterine R [id number] 01/12/2014 01/12/2014 CLS Outpatie Pearson 15:14:31 23:59:59 nt , Ryann R [id number] 10/27/2013 10/27/2013 CLS Outpatie Pearson 16:56:06 23:59:59 nt , Ryann R [id number] 09/01/2013 09/01/2013 CLS Outpatie Pearson 16:12:55 23:59:59 nt , Ryann R [id number] 08/13/2013 08/13/2013 CLS Outpatie Pearson 15:58:50 23:59:59 nt , Ryann R [id number] 08/05/2013 08/05/2013 CLS Outpatie Pearson 15:29:35 23:59:59 nt , Ryann R [id number] 07/15/2013 07/15/2013 CLS Outpatie Pearson 12:41:59 23:59:59 nt , Ryann R [id number] 06/11/2013 06/11/2013 CLS Outpatie Pearson 16:17:51 23:59:59 nt , Ryann R [id number] 05/13/2013 05/13/2013 CLS Outpatie Pearson 17:26:48 23:59:59 nt , Ryann R [id number] 02/17/2013 02/17/2013 CLS Outpatie Pearson 15:31:27 23:59:59 nt , Ryann R [id number] 02/03/2013 02/03/2013 CLS Outpatie Lili 16:15:51 23:59:59 Ryann chauhan [id number] 12/25/2012 12/25/2012 CLS Outpatie Pearson 15:01:22 23:59:59 Ryann chauhan [id number] 11/26/2012 11/26/2012 CLS Outpatie [place] 14:47:32 23:59:59 Mariama chauhan [id number] 08/07/2012 08/07/2012 CLS Outpatie Pearson 16:39:29 23:59:59 Ryann chauhan [id number] 07/11/2012 07/11/2012 CLS Outpatie Lili 15:59:53 23:59:59 Ryann chauhan
--- OUTSIDE RECORDS SUMMARY | 2017-03-15 16:14 | External Medical Summary | Continuity Of Care Document ---
:1940 Author Organization Address [address] [place] [address] Phone Care Team Providers Name Role Phone TAMMY JAMES, SARABJIT Garcia Consulting Provider JASBIR JAMES, DENITA Wagner Consulting Provider [phone] YOUNG SINCLAIR DO Unavailable UNASSIGNED, ED PHYSICIAN Unavailable Unavailable YESENIA JAMES, PAWAN Nguyen Consulting Provider ANJEL JAMES, LINA Vital Attending Provider ZAIN FARIA MD Unavailable RYAN THOMSA MD Unavailable RYANN RAY MD Primary Care Provider ENRIQUE FINCH MD Consulting Provider Results Lab Results Visit/Account #[id number] (September 19, 2016 10:27pm - October 03, 2016 2:50pm) Test Result Date/Time POCGL POCGL(70-110 MG/DL) 70 MG/DL September 27, 2016 5:41pm POC LACTIC ACID VENOUS POC LACTIC ACID VENOUS(0.90-1.70 MMOL/L) 3.92 MMOL/L September 19, 2016 10:40pm 2.81 MMOL/L September 20, 2016 12:02am COMPLETE BLOOD COUNT WHITE BLOOD COUNT(4.0-11.0 10E3/UL) 11.3 10E3/UL September 21, 2016 6:31am 11.4 10E3/UL September 23, 2016 5:55am 11.0 10E3/UL September 27, 2016 5:58am 14.1 10E3/UL October 03, 2016 7:05am RED BLOOD COUNT(4.50-5.90 10E6/UL) 4.58 10E6/UL September 21, 2016 6:31am 4.32 10E6/UL September 23, 2016 5:55am 3.99 10E6/UL September 27, 2016 5:58am 4.35 10E6/UL October 03, 2016 7:05am HEMOGLOBIN(13.5-17.5 G/DL) 14.3 G/DL September 21, 2016 6:31am 13.5 G/DL September 23, 2016 5:55am 12.4 G/DL September 27, 2016 5:58am 13.4 G/DL October 03, 2016 7:05am HEMATOCRIT(41.0-53.0 %) 43.3 % September 21, 2016 6:31am 41.1 % September 23, 2016 5:55am 38.4 % September 27, 2016 5:58am 41.0 % October 03, 2016 7:05am MEAN CORPUSCULAR VOLUME(82.0-100.0 FL) 94.5 FL September 21, 2016 6:31am 95.1 FL September 23, 2016 5:55am 96.2 FL September 27, 2016 5:58am 94.3 FL October 03, 2016 7:05am MEAN CORPUSCULAR HEMOGLOBIN(26.0-34.0 PG) 31.2 PG September 21, 2016 6:31am 31.3 PG September 23, 2016 5:55am 31.1 PG September 27, 2016 5:58am 30.8 PG October 03, 2016 7:05am MEAN CORPUSCULAR HGB CONC(31.5-36.5 G/DL) 33.0 G/DL September 21, 2016 6:31am 32.8 G/DL September 23, 2016 5:55am 32.3 G/DL September 27, 2016 5:58am 32.7 G/DL October 03, 2016 7:05am RED CELL DISTRIBUTION WIDTH(11.5-14.5 %) 16.0 % September 21, 2016 6:31am 15.9 % September 23, 2016 5:55am 15.7 % September 27, 2016 5:58am 15.5 % October 03, 2016 7:05am 777-3: PLATELET COUNT(150-450 10E3/UL) 128 10E3/UL September 21, 2016 6:31am 146 10E3/UL September 23, 2016 5:55am 164 10E3/UL September 27, 2016 5:58am 221 10E3/UL October 03, 2016 7:05am MEAN PLATELET VOLUME(8.2-12.4 FL) 9.7 FL September 21, 2016 6:31am 9.6 FL September 23, 2016 5:55am 9.9 FL September 27, 2016 5:58am 9.8 FL October 03, 2016 7:05am NUCLEATED RBCS (AUTO)(0-0 %) 0 % September 21, 2016 6:31am 0 % September 23, 2016 5:55am 0 % September 27, 2016 5:58am 0 % October 03, 2016 7:05am CBC WITH REFLEXED MANUAL DIFF WHITE BLOOD COUNT(4.0-11.0 10E3/UL) 15.9 10E3/UL September 19, 2016 10:35pm 13.0 10E3/UL September 24, 2016 7:00am 15.0 10E3/UL September 25, 2016 6:32am 13.5 10E3/UL September 26, 2016 6:13am 10.5 10E3/UL September 28, 2016 6:16am 12.2 10E3/UL September 30, 2016 8:20am 12.0 10E3/UL October 02, 2016 6:59am RED BLOOD COUNT(4.50-5.90 10E6/UL) 4.60 10E6/UL September 19, 2016 10:35pm 4.17 10E6/UL September 24, 2016 7:00am 4.11 10E6/UL September 25, 2016 6:32am 3.87 10E6/UL September 26, 2016 6:13am 4.18 10E6/UL September 28, 2016 6:16am 4.07 10E6/UL September 30, 2016 8:20am 4.28 10E6/UL October 02, 2016 6:59am HEMOGLOBIN(13.5-17.5 G/DL) 14.5 G/DL September 19, 2016 10:35pm 13.0 G/DL September 24, 2016 7:00am 13.0 G/DL September 25, 2016 6:32am 12.3 G/DL September 26, 2016 6:13am 12.7 G/DL September 28, 2016 6:16am 12.5 G/DL September 30, 2016 8:20am 13.1 G/DL October 02, 2016 6:59am HEMATOCRIT(41.0-53.0 %) 43.0 % September 19, 2016 10:35pm 39.4 % September 24, 2016 7:00am 38.9 % September 25, 2016 6:32am 36.1 % September 26, 2016 6:13am 39.6 % September 28, 2016 6:16am 39.3 % September 30, 2016 8:20am 40.3 % October 02, 2016 6:59am MEAN CORPUSCULAR VOLUME(82.0-100.0 FL) 93.5 FL September 19, 2016 10:35pm 94.5 FL September 24, 2016 7:00am 94.6 FL September 25, 2016 6:32am 93.3 FL September 26, 2016 6:13am 94.7 FL September 28, 2016 6:16am 96.6 FL September 30, 2016 8:20am 94.2 FL October 02, 2016 6:59am MEAN CORPUSCULAR HEMOGLOBIN(26.0-34.0 PG) 31.5 PG September 19, 2016 10:35pm 31.2 PG September 24, 2016 7:00am 31.6 PG September 25, 2016 6:32am 31.8 PG September 26, 2016 6:13am 30.4 PG September 28, 2016 6:16am 30.7 PG September 30, 2016 8:20am 30.6 PG October 02, 2016 6:59am MEAN CORPUSCULAR HGB CONC(31.5-36.5 G/DL) 33.7 G/DL September 19, 2016 10:35pm 33.0 G/DL September 24, 2016 7:00am 33.4 G/DL September 25, 2016 6:32am 34.1 G/DL September 26, 2016 6:13am 32.1 G/DL September 28, 2016 6:16am 31.8 G/DL September 30, 2016 8:20am 32.5 G/DL October 02, 2016 6:59am RED CELL DISTRIBUTION WIDTH(11.5-14.5 %) 15.8 % September 19, 2016 10:35pm 15.8 % September 24, 2016 7:00am 16.0 % September 25, 2016 6:32am 15.7 % September 26, 2016 6:13am 15.8 % September 28, 2016 6:16am 15.8 % September 30, 2016 8:20am 15.6 % October 02, 2016 6:59am 777-3: PLATELET COUNT(150-450 10E3/UL) 167 10E3/UL September 19, 2016 10:35pm 145 10E3/UL September 24, 2016 7:00am 149 10E3/UL September 25, 2016 6:32am 134 10E3/UL September 26, 2016 6:13am 173 10E3/UL September 28, 2016 6:16am 190 10E3/UL September 30, 2016 8:20am 209 10E3/UL October 02, 2016 6:59am MEAN PLATELET VOLUME(8.2-12.4 FL) 9.4 FL September 19, 2016 10:35pm 9.4 FL September 24, 2016 7:00am 9.7 FL September 25, 2016 6:32am 9.8 FL September 26, 2016 6:13am 9.8 FL September 28, 2016 6:16am 9.4 FL September 30, 2016 8:20am 9.7 FL October 02, 2016 6:59am DIFF TYPE MANUAL September 19, 2016 10:35pm MANUAL September 24, 2016 7:00am MANUAL September 25, 2016 6:32am MANUAL September 26, 2016 6:13am MANUAL September 28, 2016 6:16am MANUAL September 30, 2016 8:20am MANUAL October 02, 2016 6:59am NEUTROPHIL % (MANUAL)(40-70 %) 84 % September 19, 2016 10:35pm 80 % September 24, 2016 7:00am 91 % September 25, 2016 6:32am 82 % September 26, 2016 6:13am 82 % September 28, 2016 6:16am 79 % September 30, 2016 8:20am 76 % October 02, 2016 6:59am BANDS%(0-3 %) 8 % September 19, 2016 10:35pm 2 % September 24, 2016 7:00am 2 % September 28, 2016 6:16am 4 % September 30, 2016 8:20am 5 % October 02, 2016 6:59am LYMPHOCYTES % (MANUAL)(15-45 %) 2 % September 19, 2016 10:35pm 7 % September 24, 2016 7:00am 2 % September 25, 2016 6:32am 7 % September 26, 2016 6:13am 4 % September 28, 2016 6:16am 3 % September 30, 2016 8:20am 5 % October 02, 2016 6:59am MONOCYTES % (MANUAL)(2-10 %) 2 % September 19, 2016 10:35pm 5 % September 24, 2016 7:00am 3 % September 25, 2016 6:32am 5 % September 26, 2016 6:13am 5 % September 28, 2016 6:16am 5 % September 30, 2016 8:20am 6 % October 02, 2016 6:59am EOSINOPHILS % (MANUAL)(0-6 %) 3 % September 19, 2016 10:35pm 3 % September 24, 2016 7:00am 2 % September 25, 2016 6:32am 4 % September 26, 2016 6:13am 2 % September 28, 2016 6:16am 1 % September 30, 2016 8:20am 2 % October 02, 2016 6:59am BASOPHILS % (MANUAL)(0-1 %) 0 % September 19, 2016 10:35pm 0 % September 24, 2016 7:00am 0 % September 25, 2016 6:32am 0 % September 26, 2016 6:13am 0 % September 28, 2016 6:16am 0 % September 30, 2016 8:20am 0 % October 02, 2016 6:59am METAMYELOCYTES %(0-0 %) 1 % September 19, 2016 10:35pm 2 % September 24, 2016 7:00am 1 % September 25, 2016 6:32am 4 % September 28, 2016 6:16am 2 % September 30, 2016 8:20am 2 % October 02, 2016 6:59am MYELOCYTES % (MANUAL)(0-0 %) 1 % September 24, 2016 7:00am 1 % September 25, 2016 6:32am 2 % September 26, 2016 6:13am 1 % September 28, 2016 6:16am 6 % September 30, 2016 8:20am 4 % October 02, 2016 6:59am NUCLEATED RBCS (MANUAL)(0-0 %) 0 % September 19, 2016 10:35pm 0 % September 24, 2016 7:00am 0 % September 25, 2016 6:32am 0 % September 26, 2016 6:13am 0 % September 28, 2016 6:16am 0 % September 30, 2016 8:20am 0 % October 02, 2016 6:59am NEUTROPHILS # (MANUAL)(2.5-7.5 10E3/UL) 14.6 10E3/UL September 19, 2016 10:35pm 10.7 10E3/UL September 24, 2016 7:00am 13.7 10E3/UL September 25, 2016 6:32am 11.1 10E3/UL September 26, 2016 6:13am 8.8 10E3/UL September 28, 2016 6:16am 10.1 10E3/UL September 30, 2016 8:20am 9.7 10E3/UL October 02, 2016 6:59am LYMPHOCYTES # (MANUAL)(1.0-4.0 10E3/UL) 0.3 10E3/UL September 19, 2016 10:35pm 0.9 10E3/UL September 24, 2016 7:00am 0.3 10E3/UL September 25, 2016 6:32am 0.9 10E3/UL September 26, 2016 6:13am 0.4 10E3/UL September 28, 2016 6:16am 0.4 10E3/UL September 30, 2016 8:20am 0.6 10E3/UL October 02, 2016 6:59am MONOCYTES # (MANUAL)(0.2-0.8 10E3/UL) 0.3 10E3/UL September 19, 2016 10:35pm 0.7 10E3/UL September 24, 2016 7:00am 0.5 10E3/UL September 25, 2016 6:32am 0.7 10E3/UL September 26, 2016 6:13am 0.5 10E3/UL September 28, 2016 6:16am 0.6 10E3/UL September 30, 2016 8:20am 0.7 10E3/UL October 02, 2016 6:59am EOSINOPHILS # (MANUAL)(0.0-0.4 10E3/UL) 0.5 10E3/UL September 19, 2016 10:35pm 0.4 10E3/UL September 24, 2016 7:00am 0.3 10E3/UL September 25, 2016 6:32am 0.5 10E3/UL September 26, 2016 6:13am 0.2 10E3/UL September 28, 2016 6:16am 0.1 10E3/UL September 30, 2016 8:20am 0.2 10E3/UL October 02, 2016 6:59am BASOPHILS # (MANUAL)(0.0-0.2 10E3/UL) 0.0 10E3/UL September 19, 2016 10:35pm 0.0 10E3/UL September 24, 2016 7:00am 0.0 10E3/UL September 25, 2016 6:32am 0.0 10E3/UL September 26, 2016 6:13am 0.0 10E3/UL September 28, 2016 6:16am 0.0 10E3/UL September 30, 2016 8:20am 0.0 10E3/UL October 02, 2016 6:59am IMMATURE MYELOID CELLS #(0-0 10E3/UL) 0.2 10E3/UL September 19, 2016 10:35pm 0.4 10E3/UL September 24, 2016 7:00am 0.3 10E3/UL September 25, 2016 6:32am 0.3 10E3/UL September 26, 2016 6:13am 0.5 10E3/UL September 28, 2016 6:16am 1.0 10E3/UL September 30, 2016 8:20am 0.7 10E3/UL October 02, 2016 6:59am PLATELET ESTIMATE ADEQUATE September 19, 2016 10:35pm ADEQUATE September 24, 2016 7:00am ADEQUATE September 25, 2016 6:32am DECREASED September 26, 2016 6:13am ADEQUATE September 28, 2016 6:16am ADEQUATE September 30, 2016 8:20am ADEQUATE October 02, 2016 6:59am WBC MORPHOLOGY COMMENT NORMAL September 19, 2016 10:35pm 1+ TOXIC GRANULATION September 24, 2016 7:00am NORMAL September 25, 2016 6:32am NORMAL September 26, 2016 6:13am NORMAL September 28, 2016 6:16am 1+ TOXIC GRANULATION September 30, 2016 8:20am NORMAL October 02, 2016 6:59am RBC MORPHOLOGY COMMENT NORMAL September 19, 2016 10:35pm NORMAL September 24, 2016 7:00am NORMAL September 25, 2016 6:32am NORMAL September 26, 2016 6:13am NORMAL September 28, 2016 6:16am NORMAL September 30, 2016 8:20am NORMAL October 02, 2016 6:59am PLATELET MORPHOLOGY COMMENT NORMAL September 19, 2016 10:35pm NORMAL September 24, 2016 7:00am NORMAL September 25, 2016 6:32am NORMAL September 26, 2016 6:13am NORMAL September 28, 2016 6:16am NORMAL September 30, 2016 8:20am NORMAL October 02, 2016 6:59am PROTHROMBIN TIME WITH INR PROTHROMBIN TIME(12.1-14.0 SEC) 15.5 SEC September 19, 2016 10:35pm 14.6 SEC September 21, 2016 6:31am 19.6 SEC September 24, 2016 7:00am 23.4 SEC September 25, 2016 6:32am 25.9 SEC September 26, 2016 6:13am 28.1 SEC September 27, 2016 5:58am 28.9 SEC September 28, 2016 6:16am 33.0 SEC September 29, 2016 6:13am 33.8 SEC September 30, 2016 8:20am 35.0 SEC October 01, 2016 6:28am 33.4 SEC October 02, 2016 6:59am 30.0 SEC October 03, 2016 7:05am [id number]: INR 1.2 September 19, 2016 10:35pm 1.1 September 21, 2016 6:31am 1.7 September 24, 2016 7:00am 2.1 September 25, 2016 6:32am 2.3 September 26, 2016 6:13am 2.6 September 27, 2016 5:58am 2.7 September 28, 2016 6:16am 3.2 September 29, 2016 6:13am 3.3 September 30, 2016 8:20am 3.4 October 01, 2016 6:28am 3.2 October 02, 2016 6:59am 2.8 October 03, 2016 7:05am PARTIAL THROMBOPLASTIN TIME PARTIAL THROMBOPLASTIN TIME(22.2-37.4 SEC) 23.3 SEC September 19, 2016 10:35pm UA WITH SCREEN FOR CULTURE COLOR,URINE YELLOW September 19, 2016 11:00pm CLARITY,URINE SLIGHTLY CLOUDY September 19, 2016 11:00pm GLUCOSE, URINE(NEGATIVE MG/DL) NEGATIVE MG/DL September 19, 2016 11:00pm URINE BILIRUBIN(NEGATIVE) NEGATIVE September 19, 2016 11:00pm KETONES,URINE(NEGATIVE MG/DL) 5 MG/DL September 19, 2016 11:00pm URINE SPECIFIC GRAVITY(1.001-1.035) 1.022 September 19, 2016 11:00pm URINE BLOOD(NEGATIVE) SMALL September 19, 2016 11:00pm URINE PH(5.0-9.0) 5.5 September 19, 2016 11:00pm URINE PROTEIN(Less than 20 MG/DL) 30 MG/DL September 19, 2016 11:00pm URINE UROBILINOGEN(0.2-1.0 MG/DL) 0.2-1.0 MG/DL September 19, 2016 11:00pm URINE NITRITE(NEGATIVE) NEGATIVE September 19, 2016 11:00pm LEUKOCYTE ESTERASE ,URINE(NEGATIVE) LARGE September 19, 2016 11:00pm URINE RBCS(0-3 /HPF) 4-7 /HPF September 19, 2016 11:00pm URINE WBCS(0-3 /HPF) Greater than 100 /HPF September 19, 2016 11:00pm URINE EPITHELIAL CELLS(0-3 /HPF) 0-3 /HPF September 19, 2016 11:00pm URINE HYALINE CASTS(0-3 /LPF) 4-7 /LPF September 19, 2016 11:00pm URINE BACTERIA(NEGATIVE /HPF) 4+ /HPF September 19, 2016 11:00pm URINE CULTURE TO FOLLOW September 19, 2016 11:00pm URINE MICROSCOPIC REQUIRED YES September 19, 2016 11:00pm UA WITH SCREEN FOR CULTURE COLOR,URINE YELLOW September 20, 2016 11:06am CLARITY,URINE SLIGHTLY CLOUDY September 20, 2016 11:06am GLUCOSE, URINE(NEGATIVE MG/DL) NEGATIVE MG/DL September 20, 2016 11:06am URINE BILIRUBIN(NEGATIVE) NEGATIVE September 20, 2016 11:06am KETONES,URINE(NEGATIVE MG/DL) NEGATIVE MG/DL September 20, 2016 11:06am URINE SPECIFIC GRAVITY(1.001-1.035) 1.014 September 20, 2016 11:06am URINE BLOOD(NEGATIVE) TRACE September 20, 2016 11:06am URINE PH(5.0-9.0) 6.0 September 20, 2016 11:06am URINE PROTEIN(Less than 20 MG/DL) NEGATIVE MG/DL September 20, 2016 11:06am URINE UROBILINOGEN(0.2-1.0 MG/DL) 0.2-1.0 MG/DL September 20, 2016 11:06am URINE NITRITE(NEGATIVE) NEGATIVE September 20, 2016 11:06am LEUKOCYTE ESTERASE ,URINE(NEGATIVE) LARGE September 20, 2016 11:06am URINE RBCS(0-3 /HPF) 0-3 /HPF September 20, 2016 11:06am URINE WBCS(0-3 /HPF) Greater than 100 /HPF September 20, 2016 11:06am URINE EPITHELIAL CELLS(0-3 /HPF) 0-3 /HPF September 20, 2016 11:06am URINE HYALINE CASTS(0-3 /LPF) 0-3 /LPF September 20, 2016 11:06am URINE BACTERIA(NEGATIVE /HPF) TRACE /HPF September 20, 2016 11:06am URINE CULTURE TO FOLLOW September 20, 2016 11:06am URINE MICROSCOPIC REQUIRED YES September 20, 2016 11:06am URINE CRYSTALS(NONE SEEN /HPF) NONE SEEN /HPF September 20, 2016 11:06am URINE OTHER CASTS(NONE SEEN /LPF) NONE SEEN /LPF September 20, 2016 11:06am URINE COMMENTS NONE September 20, 2016 11:06am URINALYSIS WITH MICROSCOPIC COLOR,URINE YELLOW September 20, 2016 2:40am CLARITY,URINE SLIGHTLY CLOUDY September 20, 2016 2:40am GLUCOSE, URINE(NEGATIVE MG/DL) NEGATIVE MG/DL September 20, 2016 2:40am URINE BILIRUBIN(NEGATIVE) NEGATIVE September 20, 2016 2:40am KETONES,URINE(NEGATIVE MG/DL) NEGATIVE MG/DL September 20, 2016 2:40am URINE SPECIFIC GRAVITY(1.001-1.035) 1.020 September 20, 2016 2:40am URINE BLOOD(NEGATIVE) TRACE September 20, 2016 2:40am URINE PH(5.0-9.0) 5.5 September 20, 2016 2:40am URINE PROTEIN(Less than 20 MG/DL) TRACE MG/DL September 20, 2016 2:40am URINE UROBILINOGEN(0.2-1.0 MG/DL) 0.2-1.0 MG/DL September 20, 2016 2:40am URINE NITRITE(NEGATIVE) NEGATIVE September 20, 2016 2:40am LEUKOCYTE ESTERASE ,URINE(NEGATIVE) LARGE September 20, 2016 2:40am URINE RBCS(0-3 /HPF) 4-7 /HPF September 20, 2016 2:40am URINE WBCS(0-3 /HPF) Greater than 100 /HPF September 20, 2016 2:40am URINE EPITHELIAL CELLS(0-3 /HPF) 0-3 /HPF September 20, 2016 2:40am URINE HYALINE CASTS(0-3 /LPF) 0-3 /LPF September 20, 2016 2:40am URINE BACTERIA(NEGATIVE /HPF) 1+ /HPF September 20, 2016 2:40am URINE MICROSCOPIC REQUIRED YES September 20, 2016 2:40am URINE CRYSTALS(NONE SEEN /HPF) NONE SEEN /HPF September 20, 2016 2:40am URINE OTHER CASTS(NONE SEEN /LPF) NONE SEEN /LPF September 20, 2016 2:40am URINE COMMENTS NONE September 20, 2016 2:40am COMPLETE METABOLIC PROFILE GLUCOSE(70-110 MG/DL) 158 MG/DL September 19, 2016 10:35pm 94 MG/DL September 21, 2016 6:31am 109 MG/DL September 24, 2016 7:00am 145 MG/DL September 25, 2016 6:32am 139 MG/DL September 26, 2016 6:13am BLOOD UREA NITROGEN(6-20 MG/DL) 15 MG/DL September 19, 2016 10:35pm 16 MG/DL September 21, 2016 6:31am 15 MG/DL September 24, 2016 7:00am 16 MG/DL September 25, 2016 6:32am 17 MG/DL September 26, 2016 6:13am CREATININE(0.50-1.20 MG/DL) 0.81 MG/DL September 19, 2016 10:35pm 0.67 MG/DL September 21, 2016 6:31am 0.62 MG/DL September 24, 2016 7:00am 0.65 MG/DL September 25, 2016 6:32am 0.58 MG/DL September 26, 2016 6:13am EST GLOMERULAR FILTRATION RATE(Greater than or equal to 60) Greater than or equal to 60 September 19, 2016 10:35pm Result Comments: If the patient is of -[place] descent/extraction multiply the eGFR value by 1.212 to obtain the actual eGFR. >=60 mg/dL Normal 30-59 mg/dL Moderate Kidney Disease 15-29 mg/dL Severe Kidney Disease <15 mg/dL Kidney Failure Greater than or equal to 60 September 21, 2016 6:31am Result Comments: If the patient is of -[place] descent/extraction multiply the eGFR value by 1.212 to obtain the actual eGFR. >=60 mg/dL Normal 30-59 mg/dL Moderate Kidney Disease 15-29 mg/dL Severe Kidney Disease <15 mg/dL Kidney Failure Greater than or equal to 60 September 24, 2016 7:00am Result Comments: If the patient is of -[place] descent/extraction multiply the eGFR value by 1.212 to obtain the actual eGFR. >=60 mg/dL Normal 30-59 mg/dL Moderate Kidney Disease 15-29 mg/dL Severe Kidney Disease <15 mg/dL Kidney Failure Greater than or equal to 60 September 25, 2016 6:32am Result Comments: If the patient is of -[place] descent/extraction multiply the eGFR value by 1.212 to obtain the actual eGFR. >=60 mg/dL Normal 30-59 mg/dL Moderate Kidney Disease 15-29 mg/dL Severe Kidney Disease <15 mg/dL Kidney Failure Greater than or equal to 60 September 26, 2016 6:13am Result Comments: If the patient is of -[place] descent/extraction multiply the eGFR value by 1.212 to obtain the actual eGFR. >=60 mg/dL Normal 30-59 mg/dL Moderate Kidney Disease 15-29 mg/dL Severe Kidney Disease <15 mg/dL Kidney Failure BUN CREATININE RATIO(10.0-20.0 RATIO) 19.0 RATIO September 19, 2016 10:35pm 24.0 RATIO September 21, 2016 6:31am 24.0 RATIO September 24, 2016 7:00am 25.0 RATIO September 25, 2016 6:32am 29.0 RATIO September 26, 2016 6:13am SODIUM(135-145 MMOL/L) 129 MMOL/L September 19, 2016 10:35pm 132 MMOL/L September 21, 2016 6:31am 135 MMOL/L September 24, 2016 7:00am 132 MMOL/L September 25, 2016 6:32am 132 MMOL/L September 26, 2016 6:13am POTASSIUM(3.6-5.0 MMOL/L) 4.2 MMOL/L September 19, 2016 10:35pm 4.0 MMOL/L September 21, 2016 6:31am 4.0 MMOL/L September 24, 2016 7:00am 4.4 MMOL/L September 25, 2016 6:32am 4.4 MMOL/L September 26, 2016 6:13am CHLORIDE(101-111 MMOL/L) 89 MMOL/L September 19, 2016 10:35pm 92 MMOL/L September 21, 2016 6:31am 94 MMOL/L September 24, 2016 7:00am 93 MMOL/L September 25, 2016 6:32am 94 MMOL/L September 26, 2016 6:13am CO2(21-31 MMOL/L) 28 MMOL/L September 19, 2016 10:35pm 29 MMOL/L September 21, 2016 6:31am 32 MMOL/L September 24, 2016 7:00am 33 MMOL/L September 25, 2016 6:32am 32 MMOL/L September 26, 2016 6:13am ANION GAP(8-18) 16 September 19, 2016 10:35pm 15 September 21, 2016 6:31am 13 September 24, 2016 7:00am 10 September 25, 2016 6:32am 10 September 26, 2016 6:13am OSMO CALCULATED(270.0-290.0) 263.1 September 19, 2016 10:35pm 265.5 September 21, 2016 6:31am 271.5 September 24, 2016 7:00am 268.3 September 25, 2016 6:32am 268.3 September 26, 2016 6:13am CALCIUM(8.5-10.5 MG/DL) 8.5 MG/DL September 19, 2016 10:35pm 8.6 MG/DL September 21, 2016 6:31am 8.3 MG/DL September 24, 2016 7:00am 8.4 MG/DL September 25, 2016 6:32am 8.4 MG/DL September 26, 2016 6:13am BILIRUBIN,TOTAL(0.1-1.2 MG/DL) 0.4 MG/DL September 19, 2016 10:35pm 0.8 MG/DL September 21, 2016 6:31am 0.6 MG/DL September 24, 2016 7:00am 0.3 MG/DL September 25, 2016 6:32am 0.7 MG/DL September 26, 2016 6:13am ALKALINE PHOSPHATASE(42-121 IU/L) 28 IU/L September 19, 2016 10:35pm 54 IU/L September 21, 2016 6:31am 44 IU/L September 24, 2016 7:00am 49 IU/L September 25, 2016 6:32am 40 IU/L September 26, 2016 6:13am ASPARTATE AMINO TRANSFERASE(10-42 IU/L) 27 IU/L September 19, 2016 10:35pm 28 IU/L September 21, 2016 6:31am 20 IU/L September 24, 2016 7:00am 20 IU/L September 25, 2016 6:32am 22 IU/L September 26, 2016 6:13am ALANINE AMINOTRANSFERASE(10-60 IU/L) 18 IU/L September 19, 2016 10:35pm 20 IU/L September 21, 2016 6:31am 20 IU/L September 24, 2016 7:00am 21 IU/L September 25, 2016 6:32am 20 IU/L September 26, 2016 6:13am TOTAL PROTEIN(6.4-8.2 G/DL) 4.5 G/DL September 19, 2016 10:35pm 6.9 G/DL September 21, 2016 6:31am 6.3 G/DL September 24, 2016 7:00am 6.4 G/DL September 25, 2016 6:32am 6.3 G/DL September 26, 2016 6:13am ALBUMIN(3.5-5.5 G/DL) Less than 1.0 G/DL September 19, 2016 10:35pm 2.9 G/DL September 21, 2016 6:31am 2.3 G/DL September 24, 2016 7:00am 2.3 G/DL September 25, 2016 6:32am 2.8 G/DL September 26, 2016 6:13am GLOBULIN(2.4-3.6) 4.0 September 21, 2016 6:31am 4.0 September 24, 2016 7:00am 4.1 September 25, 2016 6:32am 3.5 September 26, 2016 6:13am ALBUMIN/GLOBULIN RATIO(0.9-1.8 RATIO) 0.7 RATIO September 21, 2016 6:31am 0.6 RATIO September 24, 2016 7:00am 0.6 RATIO September 25, 2016 6:32am 0.8 RATIO September 26, 2016 6:13am BASIC METABOLIC PANEL GLUCOSE(70-110 MG/DL) 115 MG/DL September 23, 2016 5:55am 126 MG/DL September 27, 2016 5:58am 111 MG/DL September 28, 2016 6:16am 139 MG/DL September 29, 2016 6:13am 135 MG/DL September 30, 2016 8:20am 108 MG/DL October 01, 2016 6:28am 107 MG/DL October 02, 2016 6:59am 114 MG/DL October 03, 2016 7:05am BLOOD UREA NITROGEN(6-20 MG/DL) 13 MG/DL September 23, 2016 5:55am 23 MG/DL September 27, 2016 5:58am 31 MG/DL September 28, 2016 6:16am 30 MG/DL September 29, 2016 6:13am 29 MG/DL September 30, 2016 8:20am 23 MG/DL October 01, 2016 6:28am 19 MG/DL October 02, 2016 6:59am 23 MG/DL October 03, 2016 7:05am CREATININE(0.50-1.20 MG/DL) 0.62 MG/DL September 23, 2016 5:55am 0.63 MG/DL September 27, 2016 5:58am 0.77 MG/DL September 28, 2016 6:16am 0.94 MG/DL September 29, 2016 6:13am 0.67 MG/DL September 30, 2016 8:20am 0.69 MG/DL October 01, 2016 6:28am 0.70 MG/DL October 02, 2016 6:59am 0.66 MG/DL October 03, 2016 7:05am EST GLOMERULAR FILTRATION RATE(Greater than or equal to 60) Greater than or equal to 60 September 23, 2016 5:55am Result Comments: If the patient is of -[place] descent/extraction multiply the eGFR value by 1.212 to obtain the actual eGFR. >=60 mg/dL Normal 30-59 mg/dL Moderate Kidney Disease 15-29 mg/dL Severe Kidney Disease <15 mg/dL Kidney Failure Greater than or equal to 60 September 27, 2016 5:58am Result Comments: If the patient is of -[place] descent/extraction multiply the eGFR value by 1.212 to obtain the actual eGFR. >=60 mg/dL Normal 30-59 mg/dL Moderate Kidney Disease 15-29 mg/dL Severe Kidney Disease <15 mg/dL Kidney Failure Greater than or equal to 60 September 28, 2016 6:16am Result Comments: If the patient is of -[place] descent/extraction multiply the eGFR value by 1.212 to obtain the actual eGFR. >=60 mg/dL Normal 30-59 mg/dL Moderate Kidney Disease 15-29 mg/dL Severe Kidney Disease <15 mg/dL Kidney Failure Greater than or equal to 60 September 29, 2016 6:13am Result Comments: If the patient is of -[place] descent/extraction multiply the eGFR value by 1.212 to obtain the actual eGFR. >=60 mg/dL Normal 30-59 mg/dL Moderate Kidney Disease 15-29 mg/dL Severe Kidney Disease <15 mg/dL Kidney Failure Greater than or equal to 60 September 30, 2016 8:20am Result Comments: If the patient is of -[place] descent/extraction multiply the eGFR value by 1.212 to obtain the actual eGFR. >=60 mg/dL Normal 30-59 mg/dL Moderate Kidney Disease 15-29 mg/dL Severe Kidney Disease <15 mg/dL Kidney Failure Greater than or equal to 60 October 01, 2016 6:28am Result Comments: If the patient is of -[place] descent/extraction multiply the eGFR value by 1.212 to obtain the actual eGFR. >=60 mg/dL Normal 30-59 mg/dL Moderate Kidney Disease 15-29 mg/dL Severe Kidney Disease <15 mg/dL Kidney Failure Greater than or equal to 60 October 02, 2016 6:59am Result Comments: If the patient is of -[place] descent/extraction multiply the eGFR value by 1.212 to obtain the actual eGFR. >=60 mg/dL Normal 30-59 mg/dL Moderate Kidney Disease 15-29 mg/dL Severe Kidney Disease <15 mg/dL Kidney Failure Greater than or equal to 60 October 03, 2016 7:05am Result Comments: If the patient is of -[place] descent/extraction multiply the eGFR value by 1.212 to obtain the actual eGFR. >=60 mg/dL Normal 30-59 mg/dL Moderate Kidney Disease 15-29 mg/dL Severe Kidney Disease <15 mg/dL Kidney Failure BUN CREATININE RATIO(10.0-20.0 RATIO) 21.0 RATIO September 23, 2016 5:55am 37.0 RATIO September 27, 2016 5:58am 40.0 RATIO September 28, 2016 6:16am 32.0 RATIO September 29, 2016 6:13am 43.0 RATIO September 30, 2016 8:20am 33.0 RATIO October 01, 2016 6:28am 27.0 RATIO October 02, 2016 6:59am 35.0 RATIO October 03, 2016 7:05am SODIUM(135-145 MMOL/L) 132 MMOL/L September 23, 2016 5:55am 134 MMOL/L September 27, 2016 5:58am 136 MMOL/L September 28, 2016 6:16am 134 MMOL/L September 29, 2016 6:13am 136 MMOL/L September 30, 2016 8:20am 133 MMOL/L October 01, 2016 6:28am 133 MMOL/L October 02, 2016 6:59am 136 MMOL/L October 03, 2016 7:05am POTASSIUM(3.6-5.0 MMOL/L) 3.5 MMOL/L September 23, 2016 5:55am 3.1 MMOL/L September 27, 2016 5:58am 3.2 MMOL/L September 28, 2016 6:16am 3.3 MMOL/L September 29, 2016 6:13am 4.2 MMOL/L September 30, 2016 8:20am 4.0 MMOL/L October 01, 2016 6:28am 3.2 MMOL/L October 02, 2016 6:59am 3.4 MMOL/L October 03, 2016 7:05am CHLORIDE(101-111 MMOL/L) 91 MMOL/L September 23, 2016 5:55am 90 MMOL/L September 27, 2016 5:58am 90 MMOL/L September 28, 2016 6:16am 87 MMOL/L September 29, 2016 6:13am 89 MMOL/L September 30, 2016 8:20am 89 MMOL/L October 01, 2016 6:28am 89 MMOL/L October 02, 2016 6:59am 89 MMOL/L October 03, 2016 7:05am CO2(21-31 MMOL/L) 34 MMOL/L September 23, 2016 5:55am 37 MMOL/L September 27, 2016 5:58am 36 MMOL/L September 28, 2016 6:16am 38 MMOL/L September 29, 2016 6:13am 38 MMOL/L September 30, 2016 8:20am 35 MMOL/L October 01, 2016 6:28am 36 MMOL/L October 02, 2016 6:59am 35 MMOL/L October 03, 2016 7:05am ANION GAP(8-18) September 23, 2016 5:55am September 27, 2016 5:58am September 28, 2016 6:16am September 29, 2016 6:13am September 30, 2016 8:20am October 01, 2016 6:28am October 02, 2016 6:59am October 03, 2016 7:05am OSMO CALCULATED(270.0-290.0) 265.6 September 23, 2016 5:55am 273.5 September 27, 2016 5:58am 279.2 September 28, 2016 6:16am 276.7 September 29, 2016 6:13am 279.8 September 30, 2016 8:20am 270.6 October 01, 2016 6:28am 269.1 October 02, 2016 6:59am 276.5 October 03, 2016 7:05am CALCIUM(8.5-10.5 MG/DL) 8.2 MG/DL September 23, 2016 5:55am 9.1 MG/DL September 27, 2016 5:58am 9.3 MG/DL September 28, 2016 6:16am 9.1 MG/DL September 29, 2016 6:13am 9.0 MG/DL September 30, 2016 8:20am 8.6 MG/DL October 01, 2016 6:28am 8.7 MG/DL October 02, 2016 6:59am 8.8 MG/DL October 03, 2016 7:05am MAGNESIUM MAGNESIUM(1.8-2.5 MG/DL) 1.8 MG/DL September 25, 2016 6:32am 1.7 MG/DL September 26, 2016 6:13am 1.9 MG/DL September 27, 2016 5:58am 2.0 MG/DL September 28, 2016 6:16am 2.2 MG/DL October 02, 2016 6:59am PHOSPHORUS PHOSPHORUS(2.5-4.6 MG/DL) 3.9 MG/DL September 25, 2016 6:32am 3.2 MG/DL September 26, 2016 6:13am CARDIAC TROPONIN I CARDIAC TROPONIN I(0.01-0.04 NG/ML) 0.07 NG/ML September 19, 2016 10:35pm Result Comments: REFERENCE RANGES: NEGATIVE < 0.04 NG/ML POSSIBLE MYCARDIAL INVOLVEMENT >/=0.04 NG/ML INTERPRET TROPONIN I RESULT IN LIGHT OF THE TOTAL CLINICAL PRESENTATION INCLUDING CLINICAL HISTORY. ANY CONDITION RESULTING IN MYOCARDIAL INJURY CAN POTENTIALLY ELEVATE TROPONIN I LEVELS ABOVE EXPECTED NORMAL RANGES. NOTE NEW REFERENCE RANGE 0.08 NG/ML September 20, 2016 5:43am Result Comments: REFERENCE RANGES: NEGATIVE < 0.04 NG/ML POSSIBLE MYCARDIAL INVOLVEMENT >/=0.04 NG/ML INTERPRET TROPONIN I RESULT IN LIGHT OF THE TOTAL CLINICAL PRESENTATION INCLUDING CLINICAL HISTORY. ANY CONDITION RESULTING IN MYOCARDIAL INJURY CAN POTENTIALLY ELEVATE TROPONIN I LEVELS ABOVE EXPECTED NORMAL RANGES. NOTE NEW REFERENCE RANGE 0.06 NG/ML September 25, 2016 6:32am Result Comments: REFERENCE RANGES: NEGATIVE < 0.04 NG/ML POSSIBLE MYCARDIAL INVOLVEMENT >/=0.04 NG/ML INTERPRET TROPONIN I RESULT IN LIGHT OF THE TOTAL CLINICAL PRESENTATION INCLUDING CLINICAL HISTORY. ANY CONDITION RESULTING IN MYOCARDIAL INJURY CAN POTENTIALLY ELEVATE TROPONIN I LEVELS ABOVE EXPECTED NORMAL RANGES. NOTE NEW REFERENCE RANGE LACTIC ACID LACTIC ACID(0.5-2.0 MMOL/L) 1.9 MMOL/L September 20, 2016 5:43am Microbiology Results Visit/Account #[id number] (September 19, 2016 10:27pm - October 03, 2016 2:50pm) Procedure Result WOUND CULTURE WOUND CULTURE Result Instance On September 20, 2016 2:20am Source: LEG Special Result Comments: No growth Result Instance On September 20, 2016 2:20am Source: LEG Organism: PSEUDOMONAS AERUGINOSA COLONY COUNT LARGE AMOUNT Organism: KLEBSIELLA PNEUMONIAE COLONY COUNT MODERATE AMOUNT Organism: ENTEROBACTER CLOACAE COLONY COUNT SMALL AMOUNT Organism: ENTEROCOCCUS FAECALIS COLONY COUNT SMALL AMOUNT Result Instance On September 20, 2016 2:30am Source: LEG Organism: PSEUDOMONAS AERUGINOSA COLONY COUNT LARGE AMOUNT Organism: ENTEROBACTER CLOACAE COLONY COUNT MODERATE AMOUNT Organism: ENTEROCOCCUS FAECALIS COLONY COUNT SMALL AMOUNT Result Instance On September 20, 2016 2:30am Source: LEG Organism: PSEUDOMONAS AERUGINOSA COLONY COUNT MODERATE AMOUNT ADDITIONAL INFORMATION SENSITIVITY DONE ON PREVIOUS CULTURE Organism: ENTEROCOCCUS FAECALIS COLONY COUNT MODERATE AMOUNT ADDITIONAL INFORMATION SENSITIVITY ON PREVIOUS CULTURE URINE CULTURE URINE CULTURE Result Instance On September 19, 2016 11:00pm Source: URINE Organism: ENTEROBACTER CLOACAE COLONY COUNT >100,000 Organism: MIXED UROGENITAL ORGANISMS COLONY COUNT 50,000 - 60,000 Result Instance On September 20, 2016 11:06am Source: URINE Organism: MIXED UROGENITAL ORGANISMS COLONY COUNT <10,000 MRSA SCREEN FOR INFEC CONTROL MRSA SCREEN FOR INFEC CONTROL Result Instance On September 20, 2016 2:39am Source: NARE Special Result Comments: No growth BLOOD CULTURE BLOOD CULTURE Result Instance On September 19, 2016 10:35pm Source: BLOOD Special Result Comments: No growth Result Instance On September 19, 2016 10:47pm Source: BLOOD Special Result Comments: No growth Result Instance On September 24, 2016 3:29pm Source: BLOOD Special Result Comments: No growth Allergies and Adverse Reactions Allergies and Adverse Reactions Patient Unit Number: [id number] Agent Type Reaction Severity Status IODINATED CONTRAST- [...] Problem List Problem List Patient Unit Number: [id number] Chronic Problems: Code/Condition Comments Documented Start Documented Code(s) Date Resolved Date Rheumatoid arthritis ICD10: M06.9 Rheumatoid arthritis SNOMED: 65136579 Rheumatoid arthritis Non-pressure chronic ulcer of right lower leg, 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 ICD10: L97.911 Non-pressure chronic ulcer of right lower leg, 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eakdown of skin SNOMED: 779592220 Non-pressure chronic ulcer of right lower leg, 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eakdown of skin Lymphedema of both lower extremities ICD10: I89.0 Lymphedema of both lower extremities SNOMED: 36802171938902457 Lymphedema of both lower extremities Elevated LFTs ICD10: R94.5 Elevated LFTs SNOMED: 092871236 Elevated liver function tests Rheumatoid arthritis ICD10: M06.9 Rheumatoid arthritis SNOMED: 92557635 Rheumatoid arthritis Chronic anticoagulation ICD10: Z79.01 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 Obstructive sleep apnea on CPAP ICD10: G47.33 Obstructive sleep apnea on CPAP SNOMED: 54155180 Obstructive sleep apnea treated with continuous positive airway pressure (C Hyponatremia ICD10: E87.1 Hyponatremia SNOMED: 49123904 Hyponatremia Bloating ICD10: R14.0 Bloating SNOMED: 971785754 Abdominal bloating Cellulitis ICD10: L03.90 Cellulitis SNOMED: 792546148 Cellulitis 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: 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 SNOMED: 688149412 Squamous cell carcinoma of left lower leg Chronic constipation ICD10: K59.00 Chronic constipation SNOMED: 666501990 Chronic constipation Severe protein-calorie malnutrition ICD10: E43 Severe protein-calorie malnutrition SNOMED: 457097726 Severe protein-calorie malnutrition ([place]: less than 60% of standard weigh Morbid obesity with BMI of 50.0-59.9, adult ICD10: E66.01 Morbid obesity with BMI of 50.0-59.9, adult SNOMED: 806812479 Morbid obesity with body mass index (BMI) of 50.0 to 59.9 in adult Urinary frequency ICD10: R35.0 Urinary frequency SNOMED: 162315279 Increased frequency of urination Basal cell carcinoma of scalp ICD10: C44.41 Basal cell carcinoma of scalp SNOMED: 145709596 Basal cell carcinoma of scalp Chronic ulcer of leg ICD10: L97.909 Chronic ulcer of leg SNOMED: 03074439 Chronic ulcer of lower extremity Traumatic open wound of lower leg ICD10: S81.809A Traumatic open wound of lower leg SNOMED: 305506572 Traumatic open wound of lower leg AAA (abdominal aortic aneurysm) without rupture ICD10: I71.4 AAA ( abdominal aortic aneurysm) without rupture SNOMED: 45772186 Abdominal aortic aneurysm without rupture Atrial fibrillation ICD10: I48.91 Atrial fibrillation SNOMED: 18133895 Atrial fibrillation Urinary retention ICD10: R33.9 Urinary retention SNOMED: 536651813 Retention of urine Plan of Care Plan Of Care Visit/Account #[id number] (September 19, 2016 10:27pm - October 03, 2016 2:50pm) Patient Instructions Instructions DI for Cellulitis -- Adult DI for Sepsis -- Adult Stool Softeners Polyethylene Glycol 3350 Metoprolol Gabapentin Cefdinir DI for Warfarin Therapy Vital Signs Vital Signs Visit/Account #[id number] (September 19, 2016 10:27pm - October 03, 2016 2:50pm) Sign First Result Last Result Code(s) Blood Pressure 130/ 93 mm[Hg] On September 20, 2016 2:04am 142/ 66 mm[Hg] On October 03, 2016 10:51am 8462-4 BP Diastolic 8480-6 BP Systolic Heart Rate/Pulse Pulse Rate (adult): 93 /min On September 20, 2016 2:20am Pulse Rate (adult): 73 /min On October 03, 2016 10:51am 8867-4 Heart Rate Respiratory Rate Respiratory Rate: 20 /min On September 20, 2016 2:15am Respiratory Rate: 20 /min On October 03, 2016 10:51am 9279-1 Respiratory Rate Temperature in Fahrenheit Temperature (Fahrenheit): 100.3 [degF] On September 10:26pm Temperature (Fahrenheit): 98.9 [degF] On October 03, 2016 10: 51am 8310-5 Body Temperature Functional Status Functional and Cognitive Status No Functional Status Data Medications Home Medications - Medications that the patient was taking prior to arrival at the hospital Visit/Account #[id number] (September 19, 2016 10:27pm - October 03, 2016 2:50pm) Medication Route Sig/Schedule Precondition/Indication Comments/ Instructions Codes COUMADIN(WARFARIN SODIUM) 5 MG TAB ORAL EVERY 48 HOURS Rx Instructions: Warfarin Sodium 5 MG Oral Tablet [Coumadin] (RxNorm): 943250 Dose: 5 MG *ALTERNATES W 2.5 MG* COUMADIN (WARFARIN SODIUM) NDC: 00101990831 MILK OF MAGNESIA(MAGNESIUM HYDROXIDE) 400 MG/5 ML ORAL.SUSP ORAL DAILY CONSTIPATION Magnesium Hydroxide 80 MG/ML Oral Suspension (RxNorm): 949174 Dose: 30 ML MILK OF MAGNESIA (MAGNESIUM HYDROXIDE) NDC: 12058174211 COUMADIN(WARFARIN SODIUM) 5 MG TAB ORAL EVERY 48 HOURS Rx Instructions: Warfarin Sodium 5 MG Oral Tablet [Coumadin] (RxNorm): 290200 Dose: 2.5 MG *ALTERNATES W 5 MG* COUMADIN (WARFARIN SODIUM) NDC: 58371803437 ESCITALOPRAM OXALATE(ESCITALOPRAM OXALATE) 5 MG TABLET ORAL DAILY Escitalopram 5 MG Oral Tablet (RxNorm): 900663 Dose: 10 MG ESCITALOPRAM OXALATE (ESCITALOPRAM OXALATE) NDC: 91282593193 DELTASONE(PredniSONE) 10 MG TAB ORAL DAILY Rx Instructions: {10 ( Prednisone 10 MG Oral Tablet) } Pack (RxNorm): 416849 Dose: 15 MG 10MG IN AM AND 5MG IN PM DELTASONE (PredniSONE) NDC: 11633083594 OXYCONTIN(OxyCODONE) 10 MG TAB.ER.12H ORAL Q5S PAIN Rx Note Text Comments: 12 HR Oxycodone Hydrochloride 10 MG Extended Release Oral Tablet [Oxycontin] ( RxNorm): 2502982 Dose: 10 MG *LF 06/12/16 #150* OXYCONTIN (OxyCODONE) NDC: 48844935852 CALMAG THINS TABLET(CALCIUM CARB &CIT/MAGNESIUM OX) 1 EACH TABLET ORAL AT BEDTIME CALMAG THINS TABLET (CALCIUM CARB &CIT/MAGNESIUM OX) NDC: 93398067113 Dose: 1 TAB VITAMIN B COMPLEX(VITAMIN B COMPLEX) 1 EACH TABLET ORAL DAILY VITAMIN B COMPLEX (VITAMIN B COMPLEX) NDC: 51812821878 Dose: 1 TAB ASCORBIC ACID(ASCORBIC ACID) 500 MG TABLET ORAL DAILY Ascorbic Acid 500 MG Oral Tablet (RxNorm): 644903 Dose: 500 MG ASCORBIC ACID (ASCORBIC ACID) NDC: 75270851443 Vitamin D3(CHOLECALCIFEROL (VITAMIN D3)) 5000 UNIT TABLET ORAL DAILY Vitamin D3 (CHOLECALCIFEROL (VITAMIN D3)) NDC: 30943445636 Dose: 5000 UNIT Coq-10(UBIDECARENONE/OMEGA-3/VIT E) 200 MG CAPSULE ORAL DAILY Coq-10 ( UBIDECARENONE/OMEGA-3/VIT E) NDC: 20520576349 Dose: 200 MG RESVERATROL PLUS 100 MG TABLET(RESVERATROL/QUERCETIN) 1 EACH TABLET ORAL DAILY RESVERATROL PLUS 100 MG TABLET (RESVERATROL/QUERCETIN) NDC: 36455489261 Dose: 1 TAB PROBIOTIC(LACTOBACILLUS ACIDOPHILUS) 1 EACH CAPSULE ORAL WITH BREAKFAST &amp ; SUPPER PROBIOTIC (LACTOBACILLUS ACIDOPHILUS) NDC: 40922517118 Dose: 1 CAP Gas-X(SIMETHICONE) 125 MG CAPSULE ORAL 3 TIMES DAILY WITH MEALS Simethicone 125 MG Oral Capsule [Gas-X Extra Strength] (RxNorm): 690209 Dose: 125 MG Gas-X (SIMETHICONE) NDC: 04440993911 CLEOCIN(CLINDAMYCIN HCL) 150 MG CAPSULE ORAL 3 TIMES A DAY Clindamycin 150 MG Oral Capsule (RxNorm): 689807 Dose: 150 MG CLEOCIN (CLINDAMYCIN HCL) NDC: 67006591045 LASIX(FUROSEMIDE) 20 MG TABLET ORAL TWICE A DAY Furosemide 20 MG Oral Tablet [Lasix] (RxNorm): Dose: 40 MG LASIX (FUROSEMIDE) NDC: 81831228812 NEURONTIN(GABAPENTIN) 300 MG CAPSULE ORAL TWICE A DAY gabapentin 300 MG Oral Capsule [Neurontin] (RxNorm): 994070 Dose: 300 MG NEURONTIN (GABAPENTIN) NDC: 36857969005 OXYCODONE HCL(OxyCODONE) 10 MG TABLET ORAL EVERY 4 HOURS PAIN Rx Note Text Comments: Oxycodone Hydrochloride 10 MG Oral Tablet (RxNorm): 5406765 Dose: 10 MG *KTRACS L/F 09/14/16 #150* OXYCODONE HCL (OxyCODONE) NDC: 99616926764 LEXAPRO(ESCITALOPRAM OXALATE) 10 MG TABLET ORAL DAILY Escitalopram 10 MG Oral Tablet [Lexapro] (RxNorm): 836886 Dose: 10 MG LEXAPRO (ESCITALOPRAM OXALATE) NDC: 21778750774 DELTASONE(PredniSONE) 10 MG TAB ORAL DAILY@AM {10 (Prednisone 10 MG Oral Tablet) } Pack (RxNorm): 143503 Dose: 10 MG DELTASONE (PredniSONE) NDC: 57990379748 DELTASONE(PredniSONE) 10 MG TAB ORAL DAILY@PM {10 (Prednisone 10 MG Oral Tablet) } Pack (RxNorm): 923276 Dose: 5 MG DELTASONE (PredniSONE) NDC: 16685196689 COUMADIN(WARFARIN SODIUM) 1 MG TAB ORAL DAILY@18 Warfarin Sodium 1 MG Oral Tablet [Coumadin] (RxNorm): 808608 Dose: 1 MG COUMADIN (WARFARIN SODIUM) NDC: 42124839168 COUMADIN(WARFARIN SODIUM) 2 MG TAB ORAL DAILY@1800 Warfarin Sodium 2 MG Oral Tablet [Coumadin] (RxNorm): 837330 Dose: 2 MG COUMADIN (WARFARIN SODIUM) NDC: 53793802728 LIDOCAINE HCL 4% ORAL SOLN(LIDOCAINE HCL) 40 MG/1 ML SOLUTION TOPICALLY 3 TIMES A DAY Lidocaine Hydrochloride 40 MG/ML Mucous Membrane Topical Solution (RxNorm): 9620028 Dose: 0 ML LIDOCAINE HCL 4% ORAL SOLN (LIDOCAINE HCL) NDC: 30239700171 Neurontin(GABAPENTIN) 300 MG CAP ORAL TWICE A DAY gabapentin 300 MG Oral Capsule [Neurontin] (RxNorm): 930578 Dose: 600 MG Neurontin (GABAPENTIN) NDC: 76875676490 Mag-Ox 400(MAGNESIUM OXIDE) 400 MG TAB ORAL WITH BREAKFAST & SUPPER Magnesium Oxide 400 MG Oral Tablet (RxNorm): 849770 Dose: 400 MG Mag-Ox 400 (MAGNESIUM OXIDE) NDC: 34462345845 LOPRESSOR(METOPROLOL TARTRATE) 25 MG TAB ORAL TWICE A DAY Metoprolol Tartrate 25 MG Oral Tablet (RxNorm): 357094 Dose: 25 MG LOPRESSOR (METOPROLOL TARTRATE) NDC: 15108131021 OXYCODONE HCL(OxyCODONE) 5 MG TAB ORAL Q3H pain OXYCODONE HCL (OxyCODONE ) NDC: 33149636017 Dose: 5-15 MG Gas-X(SIMETHICONE) 80 MG TAB ORAL NEEDED GAS Gas-X (SIMETHICONE) NDC: 47624318038 Dose: 80 MG Deltasone(PredniSONE) 1 MG TAB ORAL 1800 Prednisone 1 MG Oral Tablet ( RxNorm): 805916 Dose: 4 MG Deltasone (PredniSONE) NDC: 47001254169 Klor-Con M20(POTASSIUM CHLORIDE) 20 MEQ TAB.ER.PRT ORAL WITH BREAKFAST & SUPPER Microencapsulated Potassium Chloride 20 MEQ Extended Release Oral Tablet [Klor-Con] (RxNorm): 0088035 Dose: 20 MEQ Klor-Con M20 (POTASSIUM CHLORIDE) NDC: 26202436353 COLACE(DOCUSATE SODIUM) 100 MG CAPSULE ORAL TWICE A DAY CONSTIPATION Docusate Sodium 100 MG Oral Capsule [Colace] (RxNorm): 8019631 Dose: 100 MG COLACE (DOCUSATE SODIUM) NDC: 74865004956 Inpatient/Ordered Medications - Medications administered during hospital visit Visit/Account #[id number] (September 19, 2016 10:27pm - October 03, 2016 2:50pm) Medication Route Sig/Schedule Precondition/Indication Comments/ Instructions Codes IV Medication INTRAVEN .Q30M (Rate: 1000 MLS/HR Duration: 30 MIN) Carriers: Carriers: 1000 ML Sodium Chloride 9 MG/ML Injection (RxNorm): 0157041 NORMAL SALINE(SODIUM CHLORIDE) 1000 ML INJECTION NORMAL SALINE ( SODIUM CHLORIDE) NDC: 10885609440 Dose: 500 ML IV Medication INTRAVEN NOW (Rate: 100 MLS/HR Duration: 30 MIN) Label Comments: Carriers: DO NOT REFRIGERATE Carriers: ACTIVATE VIAL PRIOR TO ADMINISTRATION Ceftriaxone 2000 MG Injection (RxNorm): 0332743 ROCEPHIN 2 GM/50 ML(CefTRIAXone SOD) 2 GM/50 ML INJECTION ROCEPHIN 2 GM/50 ML (CefTRIAXone SOD) NDC: 38524397493 Dose: 50 ML IV Medication INTRAVEN .Q30M (Rate: 1000 MLS/HR Duration: 30 MIN) Carriers: Carriers: 1000 ML Sodium Chloride 9 MG/ML Injection (RxNorm): 1165896 NORMAL SALINE(SODIUM CHLORIDE) 1000 ML INJECTION NORMAL SALINE ( SODIUM CHLORIDE) NDC: 46340764186 Dose: 500 ML ROXICODONE(OxyCODONE HCL) 5 MG TAB ORAL NOW Label Comments: Oxycodone Hydrochloride 5 MG Oral Tablet (RxNorm): 4413927 Dose: 20 MG OXYCODONE IMMED RELEASE MAY INCREASE FALL RISK ROXICODONE (OxyCODONE HCL) NDC: 53751623479 VITAMIN C(ASCORBIC ACID) 500 MG TAB ORAL DAILY Ascorbic Acid 500 MG Oral Tablet (RxNorm): 636008 Dose: 500 MG VITAMIN C (ASCORBIC ACID) NDC: 88567928345 LASIX(FUROSEMIDE) 20 MG TAB ORAL TWICE A DAY Label Comments: Furosemide 20 MG Oral Tablet (RxNorm): 019912 Dose: 20 MG MAY INCREASE FALL RISK LASIX (FUROSEMIDE) NDC: 77055650511 NEURONTIN(GABAPENTIN) 300 MG CAP ORAL TWICE A DAY Label Comments: gabapentin 300 MG Oral Capsule [Neurontin] (RxNorm): 082615 Dose: 300 MG MAY INCREASE FALL RISK NEURONTIN (GABAPENTIN) NDC: 42445562373 MILK OF MAGNESIA 400 MG/5 ML(MAGNESIUM HYDROXIDE) 30 ML SUSPENSION ORAL DAILY PRN Reason: CONSTIPATION Label Comments: Magnesium Hydroxide 80 MG/ML Oral Suspension (RxNorm): 902948 Dose: 30 ML SHAKE WELL. Use with caution in patients with renal dysfunction. MILK OF MAGNESIA 400 MG/5 ML (MAGNESIUM HYDROXIDE) NDC: 25571023186 COUMADIN(WARFARIN SOD) 5 MG TAB ORAL Q2D@1800 Rx Order Comments: Warfarin Sodium 5 MG Oral Tablet [Coumadin] (RxNorm): 066001 Dose: 5 MG Order filed UNV: Allergies/Duplicates/Interactions differ from sales order administrator COUMADIN ( WARFARIN SOD) NDC: 93634433762 Label Comments: TERATOGENIC. WOMEN SHOULD NOT HANDLE OR CRUSH. LEXAPRO(ESCITALOPRAM OXALATE) 10 MG TAB ORAL DAILY Label Comments: Escitalopram 10 MG Oral Tablet (RxNorm): 434125 Dose: 10 MG MAY INCREASE FALL RISK LEXAPRO (ESCITALOPRAM OXALATE) NDC: 83713914688 CULTURELLE(LACTOBACILLUS RHAMNOSUS) 1 CAP CAP ORAL DAILY Label Comments: CULTURELLE (LACTOBACILLUS RHAMNOSUS) NDC: 12740897023 Dose: 1 CAP SUBST FOR PROBIOTICS GAS-X(SIMETHICONE) 80 MG TAB ORAL 3 TIMES DAILY WITH MEALS Simethicone 80 MG Chewable Tablet (RxNorm): 632015 Dose: 120 MG GAS-X (SIMETHICONE) NDC: 67903185173 SUBLIMAZE INJ(FentaNYL CITRATE) 100 MCG/2 ML INJECTION INTRAVEN Q4H breakthrough pain Label Comments: SUBLIMAZE INJ (FentaNYL CITRATE) NDC: 19199425958 Dose: 1 ML GIVE BY SLOW PUSH OVER 2-5 MIN MAY INCREASE FALL RISK ROXICODONE(OxyCODONE HCL) 5 MG TAB ORAL Q4H pain Label Comments: Oxycodone Hydrochloride 5 MG Oral Tablet (RxNorm): 2676221 Dose: 10 MG OXYCODONE IMMED RELEASE MAY INCREASE FALL RISK ROXICODONE (OxyCODONE HCL) NDC: 63939356019 DELTASONE(PredniSONE) 10 MG TAB ORAL DAILY AT [facility] Label Comments: {10 ( Prednisone 10 MG Oral Tablet) } Pack (RxNorm): 971639 Dose: 10 MG TAKE WITH FOOD OR MILK DELTASONE (PredniSONE) NDC: 22628424736 DELTASONE(PredniSONE) 5 MG TAB ORAL DAILY WITH SUPPER Label Comments: Prednisone 5 MG Oral Tablet (RxNorm): 139878 Dose: 5 MG TAKE WITH FOOD OR MILK DELTASONE (PredniSONE) NDC: 86222195895 COUMADIN(WARFARIN SOD) 2.5 MG TAB ORAL Q2D@1800 Label Comments: Warfarin Sodium 2.5 MG Oral Tablet [Coumadin] (RxNorm): 691366 Dose: 2.5 MG TERATOGENIC. WOMEN SHOULD NOT HANDLE OR CRUSH. COUMADIN (WARFARIN SOD) NDC: 95650471435 ROXICODONE(OxyCODONE HCL) 5 MG TAB ORAL ONE TIME ORDER Label Comments: Oxycodone Hydrochloride 5 MG Oral Tablet (RxNorm): 7386890 Dose: 20 MG OXYCODONE IMMED RELEASE MAY INCREASE FALL RISK ROXICODONE (OxyCODONE HCL) NDC: 80196984509 NEURONTIN(GABAPENTIN) 300 MG CAP ORAL BID@1600,2200 Label Comments: gabapentin 300 MG Oral Capsule [Neurontin] (RxNorm): 554027 Dose: 300 MG MAY INCREASE FALL RISK NEURONTIN (GABAPENTIN) NDC: 96114212074 GAS-X(SIMETHICONE) 80 MG TAB ORAL NEEDED PRN Reason: GAS Simethicone 80 MG Chewable Tablet (RxNorm): 866026 Dose: 80 MG GAS-X (SIMETHICONE) NDC: 73682646362 NEURONTIN(GABAPENTIN) 300 MG CAP ORAL TWICE A DAY Label Comments: gabapentin 300 MG Oral Capsule [Neurontin] (RxNorm): 865956 Dose: 300 MG MAY INCREASE FALL RISK NEURONTIN (GABAPENTIN) NDC: 86219267804 XYLOCAINE 4% TOP SOLN(LIDOCAINE HCL) 50 ML SOLUTION TOPICALLY NOW Special Dose Instructions: Lidocaine Hydrochloride 40 MG/ML Mucous Membrane Topical Solution (RxNorm): 3226462 Dose: 0 ML DILUTE TO 2% SOLUTION WITH AN EQUAL AMOUNT OF STERILE WATER. XYLOCAINE 4% TOP SOLN (LIDOCAINE HCL) NDC: 82802248223 to use during dressing changes. XYLOCAINE 4% TOP SOLN(LIDOCAINE HCL) 50 ML SOLUTION TOPICALLY DAILY Special Dose Instructions: Lidocaine Hydrochloride 40 MG/ML Mucous Membrane Topical Solution (RxNorm): 8743513 Dose: 0 ML DILUTE TO 2% SOLUTION WITH AN EQUAL AMOUNT OF STERILE WATER. XYLOCAINE 4% TOP SOLN (LIDOCAINE HCL) NDC: 18843218698 to use during dressing changes. LASIX(FUROSEMIDE) 20 MG TAB ORAL Q12H Rx Order Comments: Furosemide 20 MG Oral Tablet (RxNorm): 520589 Dose: 20 MG TIME CHANGE TO 0800 & 2000 PER PT REQUEST (PER NURSE) - PT HAS [place] LASIX (FUROSEMIDE) NDC: 89975994500 Label Comments: MAY INCREASE FALL RISK DELTASONE(PredniSONE) 10 MG TAB ORAL 0600 Rx Order Comments: {10 ( Prednisone 10 MG Oral Tablet) } Pack (RxNorm): 798863 Dose: 10 MG TIME CHANGE TO 0600 PER PATIENT REQUEST - PER NURSE DELTASONE (PredniSONE) NDC: 05347275810 Label Comments: TAKE WITH FOOD OR MILK DELTASONE(PredniSONE) 5 MG TAB ORAL 1800 Rx Order Comments: Prednisone 5 MG Oral Tablet (RxNorm): 894309 Dose: 5 MG TIME CHANGE TO 1800 PER PATIENT REQUEST - PER NURSE DELTASONE (PredniSONE) NDC: 87158853621 Label Comments: TAKE WITH FOOD OR MILK COUMADIN(WARFARIN SOD) 5 MG TAB ORAL DAILY@18 Label Comments: Warfarin Sodium 5 MG Oral Tablet [Coumadin] (RxNorm): [id number] Dose: 5 MG TERATOGENIC. WOMEN SHOULD NOT HANDLE OR CRUSH. COUMADIN (WARFARIN SOD) NDC: [id number] MORPHINE SULFATE 4 MG/ML INJECTION INTRAVEN Q4H PRN Reason: PAIN Label Comments: 1 ML Morphine Sulfate 4 MG/ML Cartridge (RxNorm): [id number] Dose: 0 ML MAY INCREASE FALL RISK (MORPHINE SULFATE) NDC: [id number] Special Dose Instructions: 1-2 MG IV Medication INTRAVEN Q8S (Rate: 200 MLS/HR Duration: 30 MIN) Clinical Indication: ABX for suspected infection Rx Order Comments: Additives: Order filed UNV: Additives: Dose Warnings differ from sales order administrator [email or web address] 2000 MG Injection (RxNorm): 9666703 MAXIPIME INJ(CEFEPIME HCL) 2 GM INJECTION Label Comments: MAXIPIME INJ (CEFEPIME HCL) NDC: [id number] Dose: 2 GM REFRIGERATE IVPB Expires 24 HRS after preparation Carriers: Carriers: 100 ML Sodium Chloride 9 MG/ML Injection (RxNorm): [id number] SODIUM CHLORIDE 100 ML INJECTION Dose: 100 ML (SODIUM CHLORIDE) NDC: [id number] DURAGESIC 25(FentaNYL) 1 PATCH PATCH TOPICALLY Q72H Label Comments: 72 HR Fentanyl 0.025 MG/HR Transdermal System (RxNorm): 846879 Dose: 1 PATCH MAY INCREASE FALL RISK *Warning* patients with fever or patches exposed DURAGESIC 25 ( FentaNYL) NDC: [id number] to a heat source can lead to substantial increases in fentanyl absorption and possible overdose. DILAUDID(HYDROmorphone HCL) 2 MG/ML INJECTION INTRAVEN Q2H PRN Reason: SEVERE PAIN Label Comments: 1 ML Hydromorphone Hydrochloride 2 MG/ML Cartridge (RxNorm): 0870497 Dose: 0.25 ML MAY INCREASE FALL RISK DILAUDID (HYDROmorphone HCL) NDC: 00340493319 LASIX(FUROSEMIDE) 40 MG TAB ORAL BID@,16 Rx Order Comments: Furosemide 40 MG Oral Tablet (RxNorm): 853788 Dose: 40 MG Order filed UNV: Allergies/Duplicates/Interactions differ from sales order administrator LASIX ( FUROSEMIDE) NDC: 98993242556 Label Comments: MAY INCREASE FALL RISK K-DUR(POTASSIUM CHLORIDE) 20 MEQ TAB ORAL WITH BREAKFAST & SUPPER Label Comments: Microencapsulated Potassium Chloride 20 MEQ Extended Release Oral Tablet [Klor-Con] (RxNorm): 1818754 Dose: 40 MEQ TAKE WITH FOOD TO AVOID GI UPSET K-DUR (POTASSIUM CHLORIDE) NDC: 09108738551 LASIX INJ(FUROSEMIDE) 40 MG/4 ML INJECTION INTRAVEN BID@,16 Rx Order Comments: 4 ML Furosemide 10 MG/ML Injection (RxNorm): 3119803 Dose: 4 ML Order filed UNV: Allergies/Duplicates/Interactions differ from sales order administrator LASIX INJ ( FUROSEMIDE) NDC: 56419957785 Order filed UNV: Allergies/Duplicates/Interactions differ from sales order administrator Label Comments: MAY INCREASE FALL RISK ALBURX(ALBUMIN HUMAN) 25 GM/100 ML INJECTION INTRAVEN EVERY 8 HOURS Label Comments: ALBURX (ALBUMIN HUMAN) NDC: 94841770447 Dose: 100 ML 25% NONFORMULARY MED(NON-FORMULARY MEDICATION) 1 EA EACH TOPICALLY DAILY Rx Order Comments: Dose: 1 EA Order filed UNV: Missing Bulk? indicator Label Comments: SOLOSITE WOUND DRESSING- PATIENT HAS HOME MEDICATION [facility] RX # [id number] Special Dose Instructions: MEDICATION NAME/STRENGTH: Apply solosite to wounds daily per wound care orders. Patient home medication. XYLOCAINE 4% TOP SOLN(LIDOCAINE HCL) 50 ML SOLUTION TOPICALLY TWICE A DAY Label Comments: Lidocaine Hydrochloride 40 MG/ML Mucous Membrane Topical Solution (RxNorm): 5408611 Dose: 0 ML DILUTE TO 2% PRIOR TO APPLICATION WITH STERILE WATER XYLOCAINE 4% TOP SOLN (LIDOCAINE HCL) NDC: 86859718529 Special Dose Instructions: DILUTE TO 2% SOLUTION WITH AN EQUAL AMOUNT OF STERILE WATER. to use during dressing changes. LOPRESSOR(METOPROLOL TARTRATE) 25 MG TAB ORAL TWICE A DAY Label Comments: Metoprolol Tartrate 25 MG Oral Tablet (RxNorm): 351529 Dose: 25 MG MAY INCREASE FALL RISK LOPRESSOR (METOPROLOL TARTRATE) NDC: 05331850239 MAG-OX 400(MAGNESIUM OXIDE) 400 MG TAB ORAL WITH BREAKFAST & SUPPER Magnesium Oxide 400 MG Oral Tablet (RxNorm): 994999 Dose: 400 MG MAG-OX 400 (MAGNESIUM OXIDE) NDC: 41078792289 DURAGESIC 50(FentaNYL) 1 PATCH PATCH TOPICALLY Q72H Label Comments: 72 HR Fentanyl 0.05 MG/HR Transdermal System (RxNorm): 766330 Dose: 1 PATCH MAY INCREASE FALL RISK *Warning* patients with fever or patches exposed DURAGESIC 50 ( FentaNYL) NDC: 90901346722 to a heat source can lead to substantial increases in fentanyl absorption and possible overdose. DILAUDID(HYDROmorphone HCL) 2 MG/ML INJECTION INTRAVEN NOW Label Comments : 1 ML Hydromorphone Hydrochloride 2 MG/ML Cartridge (RxNorm): 9072346 Dose: 0.25 ML MAY INCREASE FALL RISK DILAUDID (HYDROmorphone HCL) NDC: 55527670630 ZAROXOLYN(MetOLazone) 2.5 MG TAB ORAL NOW Rx Order Comments: Metolazone 2.5 MG Oral Tablet (RxNorm): 259624 Dose: 2.5 MG Order filed UNV: Dose Warnings differ from sales order administrator ZAROXOLYN (MetOLazone) NDC: 92661646301 Label Comments: MAY INCREASE FALL RISK ROXICODONE(OxyCODONE HCL) 5 MG TAB ORAL Q4H pain Label Comments: Oxycodone Hydrochloride 5 MG Oral Tablet (RxNorm): 5880551 Dose: 15 MG OXYCODONE IMMED RELEASE MAY INCREASE FALL RISK ROXICODONE (OxyCODONE HCL) NDC: 94556362842 VITAMIN D(CHOLECALCIFEROL) 1000 UNIT TAB ORAL DAILY Cholecalciferol 1000 UNT Oral Tablet (RxNorm): 249055 Dose: 5000 UNIT VITAMIN D (CHOLECALCIFEROL) NDC: 11472950190 TUMS(CALCIUM CARBONATE) 500 MG TAB ORAL AT BEDTIME Label Comments: Calcium Carbonate 500 MG Chewable Tablet (RxNorm): 750402 Dose: 250 MG SUB FOR CALMAG THINS (ALREADY ON MAG OXIDE) TAKE WITH FOOD TUMS (CALCIUM CARBONATE) NDC: 97754697890 ROXICODONE(OxyCODONE HCL) 5 MG TAB ORAL Q3H pain Label Comments: Oxycodone Hydrochloride 5 MG Oral Tablet (RxNorm): 5070846 Dose: 10 MG OXYCODONE IMMED RELEASE MAY INCREASE FALL RISK ROXICODONE (OxyCODONE HCL) NDC: 92936002039 ROXICODONE(OxyCODONE HCL) 5 MG TAB ORAL ONE TIME ORDER Label Comments: Oxycodone Hydrochloride 5 MG Oral Tablet (RxNorm): 1045154 Dose: 15 MG OXYCODONE IMMED RELEASE MAY INCREASE FALL RISK ROXICODONE (OxyCODONE HCL) NDC: 24809585915 ROXICODONE(OxyCODONE HCL) 5 MG TAB ORAL Q3H pain Label Comments: Oxycodone Hydrochloride 5 MG Oral Tablet (RxNorm): 6114954 Dose: 0 MG OXYCODONE IMMED RELEASE MAY INCREASE FALL RISK ROXICODONE (OxyCODONE HCL) NDC: 46463040206 Special Dose Instructions: 10-15 mg per dose DELTASONE(PredniSONE) 5 MG TAB ORAL DAILY AT [facility] Label Comments: Prednisone 5 MG Oral Tablet (RxNorm): 962852 Dose: 5 MG TAKE WITH FOOD OR MILK DELTASONE (PredniSONE) NDC: 51142316232 LASIX INJ(FUROSEMIDE) 40 MG/4 ML INJECTION INTRAVEN ONE TIME ORDER Label Comments: 4 ML Furosemide 10 MG/ML Injection (RxNorm): 3301050 Dose: 4 ML MAY INCREASE FALL RISK 8.10 STAFF DOCUMENTED ON TODAY'S AM DOSE, SO LASIX INJ (FUROSEMIDE) NDC: 52772063112 THIS IS TO COVER THAT MYCOSTATIN 009589 UNIT/GM PWD(NYSTATIN) 15 GM POWDER TOPICALLY 3 TIMES A DAY Special Dose Instructions: Nystatin 100 UNT/MG Topical Powder [Nystop] ( RxNorm): 070769 Dose: 0 GM 1 APPLICATION TO groin region MYCOSTATIN 268438 UNIT/GM PWD (NYSTATIN) NDC: 40564860265 COUMADIN(WARFARIN SOD) 4 MG TAB ORAL DAILY@18 Label Comments: Warfarin Sodium 4 MG Oral Tablet [Coumadin] (RxNorm): 555402 Dose: 4 MG TERATOGENIC. WOMEN SHOULD NOT HANDLE OR CRUSH. COUMADIN (WARFARIN SOD) NDC: 82180212358 LASIX(FUROSEMIDE) 40 MG TAB ORAL BID@09,16 Rx Order Comments: Furosemide 40 MG Oral Tablet (RxNorm): 390306 Dose: 40 MG Order filed UNV: Allergies/Duplicates/Interactions differ from sales order administrator LASIX ( FUROSEMIDE) NDC: 57419006791 Label Comments: MAY INCREASE FALL RISK ROXICODONE(OxyCODONE HCL) 5 MG TAB ORAL Q3H pain Label Comments: Oxycodone Hydrochloride 5 MG Oral Tablet (RxNorm): 1894211 Dose: 0 MG OXYCODONE IMMED RELEASE MAY INCREASE FALL RISK ROXICODONE (OxyCODONE HCL) NDC: 12112275257 Special Dose Instructions: 5-15 mg per dose DELTASONE(PredniSONE) 1 MG TAB ORAL 1800 Label Comments: Prednisone 1 MG Oral Tablet (RxNorm): 988903 Dose: 4 MG TAKE WITH FOOD OR MILK DELTASONE (PredniSONE) NDC: 77864286233 COLACE(DOCUSATE SODIUM) 100 MG CAP ORAL TWICE A DAY Docusate Sodium 100 MG Oral Capsule (RxNorm): 8590191 Dose: 100 MG COLACE (DOCUSATE SODIUM) NDC: 80887798249 K-DUR(POTASSIUM CHLORIDE) 20 MEQ TAB ORAL WITH BREAKFAST & SUPPER Label Comments: Microencapsulated Potassium Chloride 20 MEQ Extended Release Oral Tablet [Klor-Con] (RxNorm): 2081290 Dose: 20 MEQ TAKE WITH FOOD TO AVOID GI UPSET K-DUR (POTASSIUM CHLORIDE) NDC: 48585232558 COUMADIN(WARFARIN SOD) 1 MG TAB ORAL DAILY@18 Label Comments: Warfarin Sodium 1 MG Oral Tablet [Coumadin] (RxNorm): 084389 Dose: 1 MG GIVE WITH 2 MG FOR TOTAL OF 3 MG TERATOGENIC. WOMEN SHOULD NOT HANDLE OR COUMADIN (WARFARIN SOD) NDC: 11602011177 CRUSH. ZAROXOLYN(MetOLazone) 2.5 MG TAB ORAL DAILY Label Comments: Metolazone 2.5 MG Oral Tablet (RxNorm): 947491 Dose: 2.5 MG MAY INCREASE FALL RISK ZAROXOLYN (MetOLazone) NDC: 31357278411 COUMADIN(WARFARIN SOD) 2 MG TAB ORAL DAILY@1800 Label Comments: Warfarin Sodium 2 MG Oral Tablet [Coumadin] (RxNorm): 733076 Dose: 2 MG GIVE WITH 1 MG FOR TOTAL OF 3 MG TERATOGENIC. WOMEN SHOULD NOT HANDLE OR COUMADIN (WARFARIN SOD) NDC: 21335869868 CRUSH. NEURONTIN(GABAPENTIN) 300 MG CAP ORAL TWICE A DAY Rx Order Comments: gabapentin 300 MG Oral Capsule [Neurontin] (RxNorm): 456867 Dose: 600 MG Order filed UNV: Allergies/Duplicates/Interactions differ from sales order administrator NEURONTIN ( GABAPENTIN) NDC: 29677849795 Label Comments: MAY INCREASE FALL RISK K-DUR(POTASSIUM CHLORIDE) 20 MEQ TAB ORAL NOW Label Comments: Microencapsulated Potassium Chloride 20 MEQ Extended Release Oral Tablet [Klor- Con] (RxNorm): 0260888 Dose: 40 MEQ TAKE WITH FOOD TO AVOID GI UPSET K-DUR (POTASSIUM CHLORIDE) NDC: 68767430743 XYLOCAINE 4% TOP SOLN(LIDOCAINE HCL) 50 ML SOLUTION TOPICALLY 3 TIMES A DAY Label Comments: Lidocaine Hydrochloride 40 MG/ML Mucous Membrane Topical Solution (RxNorm): 0535247 Dose: 0 ML DILUTE TO 2% PRIOR TO APPLICATION WITH STERILE WATER XYLOCAINE 4% TOP SOLN (LIDOCAINE HCL) NDC: 81406561560 Special Dose Instructions: DILUTE TO 2% SOLUTION WITH AN EQUAL AMOUNT OF STERILE WATER. to use during dressing changes. Max amount of 30 cc/ day Discharge Medications - Medications that patient should continue to take. Review with physician Visit/Account #[id number] (September 19, 2016 10:27pm - October 03, 2016 2:50pm) Medication Route Sig/Schedule Precondition/Indication Comments/ Instructions Codes MILK OF MAGNESIA(MAGNESIUM HYDROXIDE) 400 MG/5 ML ORAL.SUSP ORAL DAILY CONSTIPATION Magnesium Hydroxide 80 MG/ML Oral Suspension (RxNorm): 479694 Dose: 30 ML MILK OF MAGNESIA (MAGNESIUM HYDROXIDE) NDC: 62713575917 CALMAG THINS TABLET(CALCIUM CARB &CIT/MAGNESIUM OX) 1 EACH TABLET ORAL AT BEDTIME CALMAG THINS TABLET (CALCIUM CARB &CIT/MAGNESIUM OX) NDC: 37018291173 Dose: 1 TAB VITAMIN B COMPLEX(VITAMIN B COMPLEX) 1 EACH TABLET ORAL DAILY VITAMIN B COMPLEX (VITAMIN B COMPLEX) NDC: 27256348982 Dose: 1 TAB ASCORBIC ACID(ASCORBIC ACID) 500 MG TABLET ORAL DAILY Ascorbic Acid 500 MG Oral Tablet (RxNorm): 932858 Dose: 500 MG ASCORBIC ACID (ASCORBIC ACID) NDC: 12355215396 Vitamin D3(CHOLECALCIFEROL (VITAMIN D3)) 5000 UNIT TABLET ORAL DAILY Vitamin D3 (CHOLECALCIFEROL (VITAMIN D3)) NDC: 21492363376 Dose: 5000 UNIT Coq-10(UBIDECARENONE/OMEGA-3/VIT E) 200 MG CAPSULE ORAL DAILY Coq-10 ( UBIDECARENONE/OMEGA-3/VIT E) NDC: 45187236115 Dose: 200 MG PROBIOTIC(LACTOBACILLUS ACIDOPHILUS) 1 EACH CAPSULE ORAL WITH BREAKFAST &amp ; SUPPER PROBIOTIC (LACTOBACILLUS ACIDOPHILUS) NDC: 06768925502 Dose: 1 CAP LASIX(FUROSEMIDE) 20 MG TABLET ORAL TWICE A DAY Furosemide 20 MG Oral Tablet [Lasix] (RxNorm): 004279 Dose: 40 MG LASIX (FUROSEMIDE) NDC: 58720513320 LEXAPRO(ESCITALOPRAM OXALATE) 10 MG TABLET ORAL DAILY Escitalopram 10 MG Oral Tablet [Lexapro] (RxNorm): 498412 Dose: 10 MG LEXAPRO (ESCITALOPRAM OXALATE) NDC: 31405411261 DELTASONE(PredniSONE) 10 MG TAB ORAL DAILY@AM {10 (Prednisone 10 MG Oral Tablet) } Pack (RxNorm): 635589 Dose: 10 MG DELTASONE (PredniSONE) NDC: 62000323266 COUMADIN(WARFARIN SODIUM) 1 MG TAB ORAL DAILY@18 Warfarin Sodium 1 MG Oral Tablet [Coumadin] (RxNorm): 817002 Dose: 1 MG COUMADIN (WARFARIN SODIUM) NDC: 75513831084 COUMADIN(WARFARIN SODIUM) 2 MG TAB ORAL DAILY@1800 Warfarin Sodium 2 MG Oral Tablet [Coumadin] (RxNorm): 985259 Dose: 2 MG COUMADIN (WARFARIN SODIUM) NDC: 85755318595 LIDOCAINE HCL 4% ORAL SOLN(LIDOCAINE HCL) 40 MG/1 ML SOLUTION TOPICALLY 3 TIMES A DAY Lidocaine Hydrochloride 40 MG/ML Mucous Membrane Topical Solution (RxNorm): 6286947 Dose: 0 ML LIDOCAINE HCL 4% ORAL SOLN (LIDOCAINE HCL) NDC: 14475943591 Neurontin(GABAPENTIN) 300 MG CAP ORAL TWICE A DAY gabapentin 300 MG Oral Capsule [Neurontin] (RxNorm): 747190 Dose: 600 MG Neurontin (GABAPENTIN) NDC: 55458735725 Mag-Ox 400(MAGNESIUM OXIDE) 400 MG TAB ORAL WITH BREAKFAST & SUPPER Magnesium Oxide 400 MG Oral Tablet (RxNorm): 808488 Dose: 400 MG Mag-Ox 400 (MAGNESIUM OXIDE) NDC: 35574645236 LOPRESSOR(METOPROLOL TARTRATE) 25 MG TAB ORAL TWICE A DAY Metoprolol Tartrate 25 MG Oral Tablet (RxNorm): 943413 Dose: 25 MG LOPRESSOR (METOPROLOL TARTRATE) NDC: 79763958755 OXYCODONE HCL(OxyCODONE) 5 MG TAB ORAL Q3H pain OXYCODONE HCL (OxyCODONE ) NDC: 09907135990 Dose: 5-15 MG Gas-X(SIMETHICONE) 80 MG TAB ORAL NEEDED GAS Gas-X (SIMETHICONE) NDC: 12924275872 Dose: 80 MG Deltasone(PredniSONE) 1 MG TAB ORAL 1800 Prednisone 1 MG Oral Tablet ( RxNorm): 598967 Dose: 4 MG Deltasone (PredniSONE) NDC: 02161202440 Klor-Con M20(POTASSIUM CHLORIDE) 20 MEQ TAB.ER.PRT ORAL WITH BREAKFAST & SUPPER Microencapsulated Potassium Chloride 20 MEQ Extended Release Oral Tablet [Klor-Con] (RxNorm): 9438463 Dose: 20 MEQ Klor-Con M20 (POTASSIUM CHLORIDE) NDC: 67243973264 OMNICEF(CEFDINIR) 300 MG CAP ORAL TWICE A DAY Rx Instructions: cefdinir 300 MG Oral Capsule (RxNorm): 127873 Dose: 300 MG Take for 10 days, then STOP OMNICEF (CEFDINIR) NDC: 28275901332 COLACE(DOCUSATE SODIUM) 100 MG CAPSULE ORAL TWICE A DAY CONSTIPATION Docusate Sodium 100 MG Oral Capsule [Colace] (RxNorm): 3503254 Dose: 100 MG COLACE (DOCUSATE SODIUM) NDC: 60799330995 MIRALAX(POLYETHYLENE GLYCOL 3350) 17 GM POWD.PACK ORAL DAILY CONSTIPATION POLYETHYLENE GLYCOL 3350 49670 MG Powder for Oral Solution [Miralax] (RxNorm) : 247384 Dose: 17 GM MIRALAX (POLYETHYLENE GLYCOL 3350) NDC: 25291250929 History Of Encounters Encounters Visit/Account #[id number] (September 19, 2016 10:27pm - October 03, 2016 2:50pm) Account Status Physican Of Reason For Visit Diagnosis Start Date/Time Stop Date/Time Record Visit ER ENRIQUE FINCH MD CELLULITIS/SEVERE SEPSIS Not Available Sep 19, 2016 10:27pm Sep 20, 2016 1:51am IN LINA HOBBS MD CELLULITIS/SEVERE SEPSIS Not Available Sep 19, 2016 11:52pm Oct 03, 2016 2:50pm History of Procedures Procedure List No procedures recorded. Discharge Instructions Discharge Instructions Visit/Account #[id number] (September 19, 2016 10:27pm - October 03, 2016 2:50pm) DISCHARGE INSTRUCTIONS Physician Documentation PROVIDER INSTRUCTIONS Discharge Diet Cardiac Other Discharge Diet 2 L fluid restriction Discharge Activity/Weight Bearing Status Light activity as tolerated Other Equipment/Supplies Walker Other Discharge Instructions wound care as directed. Discharge Diet Cardiac Other Discharge Diet 2 L fluid restriction Other Equipment/Supplies Walker Discharge Activity/Weight Bearing Status Light activity as tolerated Other Discharge Instructions wound care as directed. CARE MANAGEMENT/HOME HEALTH Care Management During physical therapy, occupational therapy, and assisted care for wound care at [facility]. WOUND/INCISION/CATHETER CARE Incision/Wound Care Continue dressing changes with lidocaine cream TID per current wound care. Wound care instructions included in discahrge packet. Wound care nurse to fax new orders to wound care and dressings changes over to [facility] today. Catheter Care: Chronic indwelling multani catheter care. REASON TO CALL PROVIDER Notify Physician if: symptoms worsen, or new symptoms occur. FOLLOW UP APPOINTMENTS Follow Up Appointment Date/Time: 1) Dr. Ryann Ray ([facility]) on Monday, October 10, 2016 at 2:15 P.M They are aware of your lab (INR) on 10/05/2016 2) Dr. Antony ([facility] wound care clinic) on September at 1:30 P.M checking in at registration at 1:15 P.M 3) Dr. Hebert ([facility]) on Tuesday, October 18, 2016 at 11:15 A.M 4) Dr. Daigle ([facility]) on Tuesday, October 18, 2016 at 3:00 P.M Follow up lab ([facility]/INR) for coumadin/warfarin dose: INR on 10/05/[address] Ray. Social History Social History No Social History Data. Immunizations Immunizations Patient Unit Number: [id number] Immunizations No immunizations recorded.
--- NOTE | 2017-03-15 16:26 | IRU History & Physical Report ---
HPI IRU Date: Date: 03/15/17 Time: 1622 Chief complaint: I'm weak HPI: Mr. Hutchinson is a 76-year-old male referred by Dr. Shaw Nguyen in [place]. His primary care provider is Dr. Doug Ang in [place]. He was admitted to [facility] on 02/26/2017 with severe weakness, hypoxia and cough which was ultimately determined to be secondary to influenza A. At that time he had had a 2 day history of progressive weakness, unable to get out of bed and ambulate. He had saturations in the 80s (he is on long-term home oxygen therapy and uses this intermittently). His home oxygen concentrator was ordered online and has never been actually covered by Medicare. He was hoping to get official coverage at some point in addition to obtaining portable oxygen. He does have an oximeter at home. At the time of admission in [place] he had a leukocytosis of 15,000 along with hyponatremia 126 and hyperkalemia at 5.6. The patient was positive for influenza A by PCR. In addition, he does have MRSA isolated from nares. Urine culture was positive for pseudomonas aeruginosa and enterococcus faecium (VRE). His blood cultures were negative on February 27 and March 03. It was determined not to treat him for his chronic urinary colonization due to lack of fever. He does have a chronic indwelling Sigala catheter due to chronic urinary frequency, urgency and incontinence according to urology notes. He continued to be extremely weak due to his prolonged hospitalization and respiratory illness. He has completed 5 days of Tamiflu for the influenza A. He continues to have a loose cough with occasional whitish sputum production. 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 He also has had a recent echocardiogram in January 2017. I have reviewed that report. He has an ejection fraction of 74%. The left atrium is mildly dilated. Right ventricle is normal in size and function. There is mild aortic root dilatation. There is mild mitral regurgitation and pulmonic valvular regurgitation with mild concentric left ventricular hypertrophy. He has a preserved ejection fraction. He has chronic edema. He currently is on Zaroxolyn daily plus Aldactone twice daily. His weight fluctuates but is generally around 130 kg. He has had symptomatic atrial fibrillation. His metoprolol was increased during the recent hospitalization in [place]. He does have chronic kidney disease with current creatinine 1.3 with an estimated GFR of 53, consistent with stage III chronic kidney disease. He does have rheumatoid arthritis and is on chronic prednisone therapy at 20 mg daily. He also has chronic neuropathic pain for which he apparently takes oxycodone and gabapentin. At one point he was started on methotrexate for the rheumatoid arthritis. According to the patient and his , it was at that time that he started getting multiple skin cancers including basal cell cancers as well as the squamous cell large ulcer in his left thomas. He has seen Dr. martins (oncology) and Dr. Thiago Montgomery (radiation oncologist) for the large squamous cell lesion but has not started radiation therapy. He has seen Dr. Lee, inspector outside steam distribution in [place], for multiple other skin lesions which have been removed. He has struggled with some hyponatremia during the hospitalization which has varied from 123 up to 131 at the present time. This seems to fluctuate with variable fluid intake. His current BMI is estimated at 42, consistent with morbid obesity. (Weight 126 kg, height 68 inches). Patient lives with his at home. He has significant physical deconditioning. His prior level of functioning is as follows: He was modified independent for eating, required minimum assistance for grooming and bathing. He was modified independent for toileting, bed/chair/wheelchair transfers and toilet transfers. He required total assistance for walking with a rolling walker 25 feet. Current level of functioning is as follows: He requires total assistance for toileting, bed/chair/wheelchair transfers and walking. He uses a rolling walker short distances. He is unable to climb stairs. He has significant difficulty with endurance, pain, strength as well as transfers, self-care and ADLs. The following medical conditions are noted and require active monitoring and/or management: 1. 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 2. Acute on chronic diastolic heart failure with preserved ejection fraction: Patient is at risk for worsening fluid retention, weight gain and further deconditioning related to fluid management 3. Acute on chronic hypoxemic respiratory failure with requirement for oxygen supplementation 4. Recent influenza A infection 5. Chronic kidney disease stage III: Depending on fluid balance and intake, he is at risk for worsening renal function. 6. Hyponatremia, multifactorial: He is at risk for worsening hyponatremia which would result in confusion 7. Chronic indwelling Sigala catheter secondary to chronic urinary urgency, frequency and incontinence with colonization but without active infection (no fever and no other symptoms) 8. Chronic leg wounds/ulcerations: He has chronic venous stasis disease of his lower extremities. 9. Atrial fibrillation: Patient is at risk for further cardiac dysrhythmias, hypotension, lightheadedness as well as risk for neurologic events (TIA/CVA) from the atrial fibrillation. 10. Multiple skin lesions including squamous cell carcinoma of left thomas, multiple apparent basal cell lesions and multiple decubitus lesions including both heels, low midline of his back. The following therapies will be needed: 1. Physical therapy: for transfers and ambulation and stairs. 2. Occupational therapy: for ADL's and transfers. 3. Medical management: for the above conditions. 4. 24 hour Rehabilitation Nursing to monitor and address the following: Monitor fluid balance, cardiac status, oxygen saturation and reduce fall risk PFSH 1. Rheumatoid arthritis on chronic steroid therapy 2. Multiple skin cancers, reportedly exacerbated or started by methotrexate usage. He has a large squamous cell ulcer/skin cancer on the left anterior thomas along with multiple other skin lesions 3. Venous stasis dermatitis with multiple skin lesions on the lower extremities 4. Decubitus lesions including both heels demonstrating ischemic change without open wound, multiple skin lesions on lower extremities as well as darkened area on his low back area. He has multiple areas of skin breakdown in the presacral and right buttock area. 5. Obstructive sleep apnea using nasal CPAP at night 6. Heart failure with preserved ejection fraction based on echocardiogram January 2017 (ejection fraction greater than 55%) 7. Hyponatremia, multifactorial 8. Chronic indwelling Sigala catheter secondary to urge incontinence and frequency. Current culture growing Pseudomonas aeruginosa and VRE without evidence of xiomara infection based on absence of fever and symptoms. 9. Muscle weakness consistent with disuse myopathy 10. Neuropathic pain 11. Chronic kidney disease stage III 12. Atrial fibrillation, chronic 13. Abdominal aortic aneurysm, asymptomatic discovered incidentally on CT scan, uncertain size Surgical History: 1. Umbilical Herniorrhaphy with mesh placement. 2. Subsequent bowel obstruction and exploration with removal of mesh and 9 inches of colon. 3. Removal of "gallstone" without cholecystectomy, by report. 4. Multiple skin cancers removed Family History: Patient states that his mother from rheumatoid arthritis in her 40s. Father of stroke uncertain age. Family history positive for pulmonary embolism. 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 He worked in [employer] business. He lives in [place] with his Review of Systems - Constitutional Constitutional: Present: fatigue. Absent: anorexia, chills, fever(s), headache( s), lethargy, malaise, night sweats, weakness, weight gain, weight loss - EESDT Eyes: Absent: blurry vision, change in vision, diplopia Mouth/Throat: Absent: changes in swallowing, painful swallowing, change in taste , bleeding gums, change in voice - Cardiovascular Cardiovascular: Absent: chest pain, palpitations, syncope, dyspnea on exertion, orthopnea, edema, cyanosis, heart murmur Rhythm: Present: abnormal rhythm Vascular: Absent: intermittent claudication, pedal edema, unilateral swelling - Respiratory Respiratory: Present: cough, dyspnea on exertion, chest congestion, excessive phlegm production. Absent: dyspnea, hemoptysis, wheezing, pain on inspiration - Gastrointestinal Gastrointestinal: Absent: abdominal pain, change in bowel habits, constipation, diarrhea, dyspepsia, dysphagia, early satiety, hematochezia, melena, nausea, vomiting - Musculoskeletal Musculoskeletal: Present: arthralgias, muscle weakness. Absent: abnormal gait, back pain, joint swelling, limited range of motion - Integumentary/Breasts Integumentary: Present: lesions, non-healing lesions, wounds. Absent: alopecia , erythema, pruritus, rash, jaundice Integumentary Comments: Patient has multiple lesions as described subsequently and previously. - Neurological Neurological: Present: frequent falls (states that he has fallen on several occasions over the last year.). Absent: abnormal gait, abnormal movements, abnormal speech, confusion, convulsions, dizziness, focal weakness, headache(s) , loss of vision, memory loss, numbness, paresthesias, tremor(s) - Psychiatric Psychiatric: Absent: abnormal sleep pattern, anxiety, depression - Endocrine Endocrine: Absent: cold intolerance, flushing, heat intolerance, palpitations - Hematologic/Lymphatic Hematologic/Lymphatic: Absent: easy bleeding, easy bruising, lymphadenopathy - Allergic/Immunologic Allergic/Immunologic: Absent: urticaria Results IRU - Labs Labs: I reviewed multiple records from [place]. Exam - Constitutional Present: no acute distress, well nourished, well developed, morbidly obese, cooperative Comments: The patient has multiple skin lesions noted as follows: 1. Multiple skin lesions on the head and neck area consistent with basal cell or squamous cell cancers with scabs and crusting 2. Pressure lesion midline upper lumbar spine area. This is a non-open wound which is dark and non-blanchable. 3. Skin breakdown noted over the right upper buttock and presacral area with multiple areas of flaky skin and redness 4. Ecchymosis and abrasion of right knee 5. Multiple skin ulcers involving the right lower extremity (minimum of 3 in the right posterior calf and 2 in the right thomas) 6. Large skin ulcer reportedly squamous cell cancer involving the left anterior thomas 7. Both heels demonstrate decubitus lesions with purplish discoloration which is non-blanchable. No open wounds on the heels. - Routine HEENT Exam Head: Present: normocephalic, atraumatic. Absent: cushingoid faces, abrasion, laceration, hematoma Eye: Present: EOMI, PERRL. Absent: conjunctival icterus, scleral injection, periorbital swelling, nystagmus ENT: Present: mucous membranes moist, oropharynx clear - Routine Neck Exam Present: supple, full ROM, trachea midline. Absent: lymphadenopathy, thyromegaly, tenderness, swelling - Routine Chest/Breast/Axilla Exam Chest wall: Absent: tenderness, mass Axillae: Absent: lymphadenopathy, mass - Routine Respiratory Exam Present: decreased breath sounds, wheezes, distant breath sounds. Absent: accessory muscle use, prolonged expiratory phase, rales, respiratory distress, rhonchi, stridor, crackles - Routine Cardiovascular Exam Present: S1, S2, no murmur, irregularly irregular. Absent: gallop, S3, S4, click, irregular rhythm - Routine Abdominal Exam Present: soft, normoactive bowel sounds, non distended, non tender. Absent: rebound, guarding, firm, rigid, organomegaly, mass, hernia, wound - Routine Extremities Exam Present: edema, non tender, pulses intact (pulses present but diminished), normal capillary refill. Absent: cyanosis, clubbing - Routine Back/Spine/Pelvis Exam Back/Spine: Present: full ROM. Absent: scoliosis, kyphosis - Routine Skin Exam Present: intact, dry, warm. Absent: cyanosis, erythema, pallor, mottling, petechiae, urticaria, lesions, jaundice - Routine Neurological Exam Present: alert, oriented X3, CN II-XII intact, motor deficit (Has reduced strength in proximal lower extremity muscles bilat), moving all extremities, normal speech - Routine Psychiatric Exam Present: normal affect, normal thought process, cooperative, good insight, good judgment. Absent: depressed, anxious Sepsis Assessment - Evaluation Severe Sepsis: none seen IRU A/P (1) Myopathy Current visit: Yes Status: Acute Patient has had a prolonged hospitalization as well as severe medical illness involving influenza A, acute on chronic hypoxemic respiratory failure and diastolic heart failure. He has evidence of proximal muscle weakness consistent with a disuse myopathy. (2) Influenza A Current visit: Yes Status: Resolved He is recovering from influenza A. He continues to have a cough with whitish sputum production. (3) Rheumatoid arthritis Qualifiers: Rheumatoid arthritis location: multiple sites Rheumatoid factor presence: unspecified presence Qualified Code(s): M06.9 - Rheumatoid arthritis, unspecified Current visit: Yes Status: Chronic He has chronic joint pain along with chronic use of prednisone 20 mg daily. (4) Atrial fibrillation, chronic Current visit: Yes Status: Chronic Patient appears to have chronic atrial fibrillation on warfarin therapy. (5) (HFpEF) heart failure with preserved ejection fraction Current visit: Yes Status: Chronic He has had evidence of exacerbation of his diastolic heart failure and has required multiple diuretics. (6) CKD (chronic kidney disease) stage 3, GFR 30-59 ml/min Current visit: Yes Status: Chronic (7) Squamous cell skin cancer Current visit: Yes Status: Chronic (8) Chronic indwelling Sigala catheter Current visit: Yes Status: Chronic (9) Acute on chronic respiratory failure with hypoxemia Current visit: Yes Status: Acute His requirement for oxygen has increased with the onset of his influenza A. DVT Prophylaxis: Coumadin Resuscitation Status: Do Not Resuscitate - Course Hospital Course: Pedro Pittman MD: - Interventions to Obtain Goals PT Treatment Plan: Balance/Proprioception, Functional Activities, Gait Training , Patient/Family Education OT Treatment Plan: ADL (Basic Care), Balance Training, Pt./Family Education Goals Progress/Modifications: This patient is extremely medically complex. 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 He requires a multidisciplinary approach with PT and OT and 24 rehabilitation nursing along with medical supervision.
--- NOTE | 2017-03-15 16:46 | Consult Note ---
Consult Information - Data of Consult Consult date: 03/15/17 Requesting Physician: Pedro Pittman MD Primary Care Provider: Doug Ang MD Family Provider: Doug Ang MD - Consult Narrative Reason for consult: Medical managment HTN, CAD, Asthma History of present illness: Mr Hutchinson is a 76 yr old male who was recently admitted at [facility] on 02/26/17 with Influenza A and hypoxia. During this acute hospital patient patient was found to have positive MRSA isolated to the nares as well as a positive urine culture with presence of VRE. Due to the likelihood of chronic urinary colonization urine infection was not treated. Given the significance of his hospitalization and severity of illness, accompanied with existing comorbidities. He continues to have significant weakness in multiple debility. Given his prior status of independent living, and requiring further rehabilitation and strengthening, patient was accepted to inpatient rehabilitation unit under the care of Dr. Pittman for ongoing therapy. James is seen on arrival to [facility]. He is alert and orientated and pleasant. He is currently on oxygen at 3.5 liters to maintain adequate saturations. He currently denies having any pain however is a long time sufferer of chronic pain from RA. He is chronically immunocompromised as he is on Prednisone 20 mg daily. He has numerous areas of squamous cell carcinoma lesions and a large squamous cell ulceration on the anterior aspect of the left thomas. He is planning to start radiation therapy. However, he reports he has not been well enough to do so. All skin lesions were evaluated and reported initially by Dr Pittman at time of admission- 1. Multiple skin lesions on the head and neck area consistent with basal cell or squamous cell cancers with scabs and crusting 2. Pressure lesion midline upper lumbar spine area. This is a non-open wound which is dark and non-blanchable. 3. Skin breakdown noted over the right upper buttock and presacral area with multiple areas of flaky skin and redness 4. Ecchymosis and abrasion of right knee 5. Multiple skin ulcers involving the right lower extremity (minimum of 3 in the right posterior calf and 2 in the right thomas) 6. Large skin ulcer reportedly squamous cell cancer involving the left anterior thomas 7. Both heels demonstrate decubitus lesions with purplish discoloration which is non-blanchable. No open wounds on the heels. Past Medical History Rheumatoid arthritis on chronic steroid therapy Multiple skin cancers, reportedly exacerbated or started by methotrexate usage. He has a large squamous cell ulcer/skin cancer on the left anterior thomas along with multiple other skin lesions Venous stasis dermatitis with multiple skin lesions on the lower extremities Decubitus lesions including both heels demonstrating ischemic change without open wound, multiple skin lesions on lower extremities as well as darkened area on his low back area. He has multiple areas of skin breakdown in the presacral and right buttock area. Obstructive sleep apnea using nasal CPAP at night Heart failure with preserved ejection fraction based on echocardiogram January 2017 (ejection fraction greater than 55%) Hyponatremia, multifactorial Chronic indwelling Sigala catheter secondary to urge incontinence and frequency. Current culture growing Pseudomonas aeruginosa and VRE without evidence of xiomara infection based on absence of fever and symptoms. Muscle weakness consistent with disuse myopathy Neuropathic pain Chronic kidney disease stage III Atrial fibrillation, chronic Abdominal aortic aneurysm, asymptomatic discovered incidentally on CT scan, uncertain size Hypertension Obstructive sleep apnea GERD Coronary artery disease ECHO 01/2017 Ejection fraction of 74%. The left atrium is mildly dilated. Right ventricle is normal in size and function. There is mild aortic root dilatation. There is mild mitral regurgitation and pulmonic valvular regurgitation with mild concentric left ventricular hypertrophy. Surgical History: Umbilical Herniorrhaphy with mesh placement. Subsequent bowel obstruction and exploration with removal of mesh and 9 inches of colon. Removal of "gallstone" without cholecystectomy, by report. Multiple skin cancers removed. Implanted neurostimulator in back- currently off, battery patient does not want this replaced Family History Updates: Mother- at in her 40s of rheumatoid arthritis. Father at age 69 from CVA. Other family history positive for pulmonary emboli - Social History Smoking status: Former smoker (quit 1971) Substance use type: does not use Alcohol intake frequency: does not drink Social history: PCP-Dr. Doug Ang in [place] Oncologist-Dr. Iglesias Radiation oncologist-Dr. 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 Lee ([place]) Prior to acute illness he did reside independently at home with . 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 Lives in [place], [place] Review of Systems All systems PM: 10-point ROS was reviewed, no additional remarkable complaints except - Constitutional Constitutional: Present: fatigue, weakness - Integumentary/Breasts Integumentary: Present: as per HPI, lesions, other (Squamous cell ulcer lesion) Medications Home Medications Medication Instructions Recorded Confirmed Type Ascorbic Acid 500 mg PO DAILY 03/15/17 03/15/17 History Calcium Carb, Cit/Magnesium Ox 1 each PO NOON 03/15/17 03/15/17 History [Calmag Thins Tablet] Cholecalciferol (Vitamin D3) 1 tab PO DAILY 03/15/17 03/15/17 History [Vitamin D3] Escitalopram Oxalate [Lexapro] 20 mg PO DAILY 03/15/17 03/15/17 History Ferrous Sulfate 325 mg PO DAILY 03/15/17 03/15/17 History Furosemide [Lasix] 1 tab PO DAILY 03/15/17 03/15/17 History Gabapentin 300 mg PO TID 03/15/17 03/15/17 History Gabapentin [Neurontin] 1 cap PO HS 03/15/17 03/15/17 History Lactobacillus Acidophilus 2 each PO DAILY 03/15/17 03/15/17 History [Acidophilus Lactobacilli] Magnesium Glycinate [Mag Glycinate] 200 mg PO DAILY 03/15/17 03/15/17 History Metolazone [Zaroxolyn] 5 mg PO DAILY 03/15/17 03/15/17 History Metoprolol Tartrate [Lopressor] 25 mg PO BIDWM 03/15/17 03/15/17 History Nystatin Oral Liq. [Mycostatin] 5 ml PO QID 03/15/17 03/15/17 History Oxycodone HCl [Oxaydo] 5 mg PO Q5HR PRN 03/15/17 03/15/17 History PEG 3350 17gm PACKET [Miralax] 17 gm PO DAILY 03/15/17 03/15/17 History Pantoprazole Tab [Protonix Tab] 1 tab PO ACB 03/15/17 03/15/17 History Potassium Chloride [K-DUR 20 mEq 1 tab PO BID 03/15/17 03/15/17 History Tablet] PredniSONE [Deltasone] 20 mg PO WB 03/15/17 03/15/17 History Senna + Docusate [Senna Plus 2 tab PO BID 03/15/17 03/15/17 History Tablet] Simethicone [Mylicon] 80 mg PO DAILY PRN 03/15/17 03/15/17 History Spironolactone [Aldactone] 50 mg PO BID 03/15/17 03/15/17 History Ubidecarenone [Co Q10] 1 cap PO DAILY 03/15/17 03/15/17 History Warfarin Sodium [Coumadin] 1 mg PO 03/15/17 History Warfarin [Coumadin] 2 mg PO 1700 03/15/17 03/15/17 History Allergies Allergy/AdvReac Type Severity Reaction Status Date / Time hydroxychloroquine Allergy Severe sores on Verified 03/15/17 18:13 legs, feet, mouth Iodine and Iodide Containing Allergy Severe throat Verified 03/15/17 18:13 Produc started to close influenza virus vaccine, Allergy Intermediate sick for 3 Verified 03/15/17 18:13 specific months silver Allergy Intermediate breaks out, Verified 03/15/17 18:13 sulfasalazine Allergy Intermediate caused afib Verified 03/15/17 18:13 vancomycin Allergy Intermediate Rash Verified 03/15/17 18:13 zinc oxide Allergy Intermediate Rash Verified 03/15/17 18:13 amoxicillin Allergy Mild leg Verified 03/15/17 18:13 swelling tobramycin Allergy Mild facial Verified 03/15/17 18:13 edema, elevated HR, SOB cephalexin Allergy Unknown short of Verified 03/15/17 18:13 breath, rash ciprofloxacin Allergy Unknown short of Verified 03/15/17 18:13 breath, joints ache clavulanic acid Allergy Unknown leg Verified 03/15/17 18:13 swelling dronedarone Allergy Unknown Verified 03/15/17 18:13 famotidine Allergy Unknown Joint Pain Verified 03/15/17 18:13 Penicillins Allergy short of Verified 03/15/17 18:13 breath, brain fog, leg swelling methotrexate AdvReac Severe skin Verified 03/15/17 18:13 cancers alginate dressing AdvReac Mild feels like Verified 03/15/17 18:13 on fire acetaminophen AdvReac Unknown liver Verified 03/15/17 18:13 failure collagen firocol AdvReac Mild juan Uncoded 03/15/17 18:13 Exam - Constitutional Present: no acute distress, well nourished, well developed - Routine HEENT Exam Eye: Present: EOMI ENT: Present: mucous membranes moist, dentition normal - Routine Respiratory Exam Present: CTA bilaterally. Absent: wheezes - Routine Cardiovascular Exam Present: RRR, S1, S2. Absent: murmur - Routine Abdominal Exam Present: soft, normoactive bowel sounds, non distended. Absent: tenderness - Routine Extremities Exam Present: edema (trace bilateral lower ext) - Routine Skin Exam Present: intact, dry, warm, lesions (multiple squamous cell lesions, large squamous cell ulceration wound to the left thomas) - Routine Neurological Exam Present: alert, oriented X3, CN II-XII intact - Routine Psychiatric Exam Present: normal affect, cooperative Assessment and Plan (1) Acute on chronic respiratory failure with hypoxemia Current visit: Yes Status: Acute (2) Myopathy Current visit: Yes Status: Acute (3) Squamous cell skin cancer Current visit: Yes Status: Chronic Assessment and Plan: Impression Generalized Myopathy Skin lesions consistent with basal cell and squamous cell carcinoma Recent influenza A with continued hypoxia. Chronic atrial fibrillation Congestive heart failure. 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 Hypertension AAA Coronary artery disease Peripheral vascular disease history of asthma history of seizures Plan Seen and examined patient on same day as the above note. Agree with history, physical, assessment and plan. Comprehensive physical findings correlate to the above note. Documented on Dragon speech to text. Efforts to crack speech recognition errors performed, but variation may exist Agree with admission to inpatient rehabilitation unit under the care of Dr. Pittman for significant myopathy and weakness secondary to recent acute hospitalization and illness. Patient does have a very complex past medical history and current chronic comorbidities. Appreciate hospitalist consultation for assistance in medical management. Consultation placed with the wound care team for evaluation and recommendations of ongoing wound care. Left leg squamous cell carcinoma-stable. Patient scheduled to follow with radiation oncology once medically improved. does report that she would like to use her homemade "save" which contains eggplant an essential oil. Consult to pharmacy for ongoing management of INR and Coumadin dosing. Patient has known positive urine culture for VRE. Will forego any treatment. Given chronic colonization of indwelling Sigala catheter Encourage work with PT and OT for ongoing strengthening and improve function. Home medications will be reviewed once reconciled in the computer. Patient does wish to be a full code and this orders written. Case discussed with Dr. Pittman, nursing staff, attending Dr. Pate Appreciate medical consultation, the hospitalist services will continue to follow patient medically manage his existing comorbidities during his stay on IRU unit. At time of discharge his medical care will return to his primary care provider in Dr. Doug Ang in [place] Addendum: Seen and examined patient on same day as the above note. Agree with history, physical, assessment and plan. Comprehensive physical findings correlate to the above note nurse practitioner Celi Zamora. Documented on Dragon speech to text. Efforts to roof read and then correct speech recognition errors performed, but variation may exist - Physician Narrative Narrative: Date: 03/15/17 Time: 0081 Hospital Course Summary Disclaimer: The visit summary below is not to be considered part of the above Progress Note. Hospital Course: Impression Generalized Myopathy Skin lesions consistent with basal cell and squamous cell carcinoma Recent influenza A with continued hypoxia. Chronic atrial fibrillation Congestive heart failure. 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 Hypertension AAA Coronary artery disease Peripheral vascular disease history of asthma history of seizures Plan Agree with admission to inpatient rehabilitation unit under the care of Dr. Pittman for significant myopathy and weakness secondary to recent acute hospitalization and illness. Patient does have a very complex past medical history and current chronic comorbidities. Appreciate hospitalist consultation for assistance in medical management. Consultation placed with the wound care team for evaluation and recommendations of ongoing wound care. Left leg squamous cell carcinoma-stable. Patient scheduled to follow with radiation oncology once medically improved. does report that she would like to use her homemade "save" which contains eggplant an essential oil. Consult to pharmacy for ongoing management of INR and Coumadin dosing. Patient has known positive urine culture for VRE. Will forego any treatment. Given chronic colonization of indwelling Sigala catheter Encourage work with PT and OT for ongoing strengthening and improve function. Home medications will be reviewed once reconciled in the computer. Patient does wish to be a full code and this orders written. Case discussed with Dr. Pittman, nursing staff, attending Dr. Pate Appreciate medical consultation, the hospitalist services will continue to follow patient medically manage his existing comorbidities during his stay on IRU unit. At time of discharge his medical care will return to his primary care provider in Dr. Doug Ang in [place]
[2017-03-15 16:52] VITALS: BMI 45.0
--- NOTE | 2017-03-15 16:53 | IRU 24Hr Post Admit Eval ---
24 Hr Post Admission Physical - Relevant Changes Relevant Changes: No Reviewed: I have reviewed the patient's information and concur with the finding and results of the pre-admission screen. Certification: I certify the patient for rehabilitation. - Patient Condition (1) Myopathy Status: Acute Code(s): G72.9 - Myopathy, unspecified Classification: Present on IRF Admission, IRF Tx That Should Address Diagnosis, Diagnosis Requiring Medical Follow Up (2) Influenza A Status: Resolved Code(s): J10.1 - Influenza due to other identified influenza virus with other respiratory manifestations Classification: IRF Tx That Should Address Diagnosis, Diagnosis Requiring Medical Follow Up (3) Rheumatoid arthritis Status: Chronic Qualifiers: Rheumatoid arthritis location: multiple sites Rheumatoid factor presence: unspecified presence Qualified Code(s): M06.9 - Rheumatoid arthritis, unspecified Code(s): M06.9 - Rheumatoid arthritis, unspecified Classification: Present on IRF Admission, Diagnosis Requiring Medical Follow Up (4) Atrial fibrillation, chronic Status: Chronic Code(s): I48.2 - Chronic atrial fibrillation Classification: Present on IRF Admission, IRF Tx That Should Address Diagnosis, Diagnosis Requiring Medical Follow Up (5) (HFpEF) heart failure with preserved ejection fraction Status: Chronic Code(s): I50.30 - Unspecified diastolic (congestive) heart failure Classification: Present on IRF Admission, IRF Tx That Should Address Diagnosis, Diagnosis Requiring Medical Follow Up (6) CKD (chronic kidney disease) stage 3, GFR 30-59 ml/min Status: Chronic Code(s): N18.3 - Chronic kidney disease, stage 3 (moderate) Classification: Present on IRF Admission, IRF Tx That Should Address Diagnosis, Diagnosis Requiring Medical Follow Up (7) Squamous cell skin cancer Status: Chronic Code(s): C44.92 - Squamous cell carcinoma of skin, unspecified Classification: Present on IRF Admission, Diagnosis Requiring Medical Follow Up (8) Chronic indwelling Sigala catheter Status: Chronic Code(s): Z92.89 - Personal history of other medical treatment Classification: Present on IRF Admission, Diagnosis Requiring Medical Follow Up (9) Acute on chronic respiratory failure with hypoxemia Status: Acute Code(s): J96.21 - Acute and chronic respiratory failure with hypoxia Classification: Present on IRF Admission, IRF Tx That Should Address Diagnosis, Diagnosis Requiring Medical Follow Up - Prior Functional Status Lives With: Spouse Residence Type: Apartment/Private Home Assitive Devices: Four Wheeled Walker Prior Functional Status: Depend. at home or school, Used assistive device - Current Functional Status Current Level of Function: Current level of functioning is as follows: He requires total assistance for toileting, bed/chair/wheelchair transfers and walking. He uses a rolling walker short distances. He is unable to climb stairs. He has significant difficulty with endurance, pain, strength as well as transfers, self-care and ADLs. Failed Alternative Therapy: Arrived from Acute Care Patient Requirements: The patient requires oversight by rehabilitation physician to manage their rehabilitation treatment plan and multidisciplinary approach to care that can only be provided in an IRF and requires a multidisciplinary approach to care, provided by professional PTs, OTs, STs, dieticians, RTs, rehabilitation nurses and is not available in lesser levels of care. Limitations Req: Mobility Impairment, ADL Impairment, Limited Mobility, Desire/ Ability to Partici Physical Therapy Minutes: 90 Occupational Therapy Minutes: 90 Therapy: The patient is to receive therapy at least 5 days a week. - Complications/Comorbidities Impact on Functional Outcomes: His rheumatoid arthritis and disuse myopathy may negatively impact his functional outcome. Barriers to Discharge: Weakness, Balance, Endurance, Pain Control, Medical Limitation - Plan to Avoid Complications Plan to Avoid Complications: The patient cannot receive this care in a lesser intensive setting such as Senior Care or Outpatient Therapy due to the patient requiring the following : This patient requires close monitoring of his pulmonary and cardiac status in view of his heart failure with preserved ejection fraction and propensity to have peripheral edema. He requires 24 rehabilitation nursing to monitor and treat his multiple wounds and to prevent further breakdown. He requires a multidisciplinary approach with PT and OT as well as respiratory therapy and medical supervision in view of his atrial fibrillation, heart failure with preserved ejection fraction, rheumatoid arthritis and disuse myopathy. .
[2017-03-15] MEDS: Oxycodone *IR* 5 MG TABLET PO PRN ×2 (17:37→23:08)
--- NOTE | 2017-03-15 17:56 | Pharmacy Consult ---
Pharmacy Consult-Warfarin - Laboratory Information WARFARIN THERAPY: Pt admitted from [place] with multiple comorbidities. On anticoagulation for Hx of A. Fib. Home dose reported as Warfarin 2mg daily, except on Fridays takes 1mg. INR has not been very stable. Pt has not had dose today. Will give Warfarin 2mg tonight. Order daily INR's starting in morning and will adjust regimen until therapeutic level is reached [target INR = 2 - 3] No drug - drug interactions noted at this time. Thank you.
[2017-03-15] MEDS ORDERED: WARFARIN 2 MG TABLET PO SCH (19:00)
[2017-03-15] MEDS ORDERED: GABAPENTIN 300 MG CAPSULE PO SCH (21:00)
[2017-03-15] MEDS: SPIRONOLACTONE 50 MG TABLET PO SCH (21:06)
[2017-03-15] MEDS: SENNA + DOCUSATE TABLET PO SCH (21:07)
[2017-03-15] MEDS: NYSTATIN 500,000 units/5 ml ORAL LIQUID PO SCH (21:07)
[2017-03-15] MEDS: GABAPENTIN 300 MG CAPSULE PO SCH (21:07)
[2017-03-16] MEDS: Oxycodone *IR* 5 MG TABLET PO PRN ×4 (03:57→19:27)
[2017-03-16] MEDS: PANTOPRAZOLE 40 MG TABLET PO SCH (05:43)
[2017-03-16] MEDS ORDERED: POLYETHYL GLYCOL 3350 17gm PACKET PO SCH (09:00)
[2017-03-16] MEDS: FERROUS SULFATE 324 MG TABLET PO SCH (09:18)
[2017-03-16] MEDS: ASCORBIC ACID 500 MG TABLET PO SCH (09:18)
[2017-03-16] MEDS: NYSTATIN 500,000 units/5 ml ORAL LIQUID PO SCH ×4 (09:18→21:39)
[2017-03-16] MEDS: SENNA + DOCUSATE TABLET PO SCH ×2 (09:18→21:40)
[2017-03-16] MEDS: MAGNESIUM OXIDE 400 MG TABLET PO SCH (09:19)
[2017-03-16] MEDS: GABAPENTIN 300 MG CAPSULE PO SCH ×3 (09:19→21:38)
[2017-03-16] MEDS: LACTOBACILLUS (15B cfu) CAPSULE PO SCH (09:19)
[2017-03-16] MEDS: COENZYME Q-10 200mg TABLET PO SCH (09:19)
[2017-03-16] MEDS: SPIRONOLACTONE 50 MG TABLET PO SCH ×2 (09:20→21:40)
[2017-03-16] MEDS: FUROSEMIDE 40 MG TABLET PO SCH (09:20)
[2017-03-16] MEDS: PredniSONE 20 MG TABLET PO SCH (09:20)
[2017-03-16] MEDS: ESCITALOPRAM 20 MG TABLET PO SCH (09:20)
--- NOTE | 2017-03-16 09:56 | Wound Care Progress Note ---
Wound Management - Patient Status Premedicated Prior to Dressing Change: No - Wound Left Anterior Snider Wound Type: Fungating Cancer Wound Present on Admission?: Yes Length: 9 Width: 7 Wound Bed Appearance: Beefy Red Beba Wound Appearance: Bright Red Tunneling: No Undermining: No Drainage Description: Serosanguineous Drainage Amount: Moderate Drainage Odor: Slight Odor Dressing Status: Changed (applied a pultuse the family supplies for this site. It has Egg plant,essintial oils, vinegar.) Primary Dressing: Non-Adherent Gauze Pad Secondary Dressing: Gauze Roll/Wrap Dressing Change Date: 03/16/17 Dressing Change Time: 08:00 Dressing Change Patient Tolerance: Tolerated Well Left Posterior Calf Wound Type: Open Wound Wound Present on Admission?: Yes Length: 4 Width: 3 Depth: 0.8 Wound Bed Appearance: Beefy Red, Necrotic Beba Wound Appearance: Shiny, Necrotic Undermining: No Drainage Description: Sanguineous Drainage Amount: Moderate Drainage Odor: No Odor Dressing Status: Changed Irrigant Solution: Enzymatic Paste Packing Type: Gauze Pads Primary Dressing: Gauze Pad Secondary Dressing: Foam Dressing Dressing Change Date: 03/16/17 Dressing Change Time: 09:56 Dressing Change Patient Tolerance: Tolerated Well Right Lateral Calf Wound Type: Open Wound Wound Present on Admission?: Yes Length: 4 Width: 5 Depth: 0.2 Wound Bed Appearance: Beefy Red, Necrotic Beba Wound Appearance: Bright Red Tunneling: No Undermining: No Drainage Description: Sanguineous Drainage Amount: Moderate Drainage Odor: No Odor Dressing Status: Changed Irrigant Solution: Enzymatic Paste Primary Dressing: Foam Dressing Dressing Change Date: 03/16/17 Dressing Change Time: 10:03 Dressing Change Patient Tolerance: Tolerated Well Right Anterior Snider Wound Type: Open Wound Wound Present on Admission?: Yes Length: 5 Width: 4.3 Depth: 0.2 Wound Bed Appearance: Beefy Red Tunneling: No Undermining: No Drainage Description: Sanguineous Drainage Odor: No Odor Dressing Status: Changed Primary Dressing: Collagen Secondary Dressing: Foam Dressing Dressing Change Date: 03/16/17 Dressing Change Time: 10:04 Dressing Change Patient Tolerance: Tolerated Well Right Posterior Knee Wound Type: Skin Tear Wound Present on Admission?: Yes Wound Bed Appearance: Beefy Red Beba Wound Appearance: Dark Red Tunneling: No Undermining: No Drainage Description: Sanguineous Drainage Amount: Moderate Drainage Odor: No Odor Dressing Status: Changed Primary Dressing: Collagen Secondary Dressing: Foam Dressing Dressing Change Date: 03/16/17 Dressing Change Time: 10:05 Dressing Change Patient Tolerance: Tolerated Well Right Posterior Calf Wound Type: Open Wound Wound Present on Admission?: Yes Length: 2 Width: 0.5 Depth: 0.5 Wound Bed Appearance: Beefy Red Beba Wound Appearance: [place] Tunneling: No Undermining: No Drainage Description: Sanguineous Drainage Amount: Scant Drainage Odor: No Odor Dressing Status: Changed Primary Dressing: Collagen Secondary Dressing: Foam Dressing Dressing Change Date: 03/16/17 Dressing Change Time: 10:06 Dressing Change Patient Tolerance: Tolerated Well Back Wound Type: Skin Tear Wound Present on Admission?: Yes Wound Bed Appearance: Beefy Red Beba Wound Appearance: [place] Tunneling: No Undermining: No Drainage Description: Serous Drainage Amount: Small Drainage Odor: No Odor Dressing Status: Changed Primary Dressing: Collagen Secondary Dressing: Foam Dressing Dressing Change Date: 03/16/17 Dressing Change Time: 10:06 Dressing Change Patient Tolerance: Tolerated Well Lateral Back Wound Type: Skin Tear Wound Present on Admission?: Yes Wound Bed Appearance: Beefy Red Beba Wound Appearance: [place] Tunneling: No Undermining: No Drainage Description: Serous Drainage Amount: Scant Drainage Odor: No Odor Dressing Status: Changed Primary Dressing: Collagen Secondary Dressing: Foam Dressing Dressing Change Date: 03/16/17 Dressing Change Time: 10:07 Dressing Change Patient Tolerance: Tolerated Well Left Posterior Lateral Thigh Wound Type: Skin Tear Wound Present on Admission?: Yes Wound Bed Appearance: Beefy Red Beba Wound Appearance: [place] Tunneling: No Undermining: No Drainage Description: Serous Drainage Amount: Scant Drainage Odor: No Odor Dressing Status: Changed Primary Dressing: Collagen Secondary Dressing: Foam Dressing Dressing Change Date: 03/16/17 Dressing Change Time: 10:08 Dressing Change Patient Tolerance: Tolerated Well Left Posterior Medial Thigh Wound Type: Skin Tear Wound Present on Admission?: Yes Wound Bed Appearance: Beefy Red Beba Wound Appearance: [place] Tunneling: No Undermining: No Drainage Description: Serous Drainage Amount: Scant Drainage Odor: No Odor Dressing Status: Changed Primary Dressing: Collagen Secondary Dressing: Foam Dressing Dressing Change Date: 03/16/17 Dressing Change Time: 10:09 Dressing Change Patient Tolerance: Tolerated Well
[2017-03-16] MEDS: SIMETHICONE 80 MG CHEWABLE TABLET PO PRN ×2 (10:03→17:52)
[2017-03-16] MEDS: ACETAMINOPHEN 325 MG TABLET PO PRN ×2 (11:20→21:40)
[2017-03-16] MEDS ORDERED: WARFARIN 2 MG TABLET PO SCH (12:00)
--- NOTE | 2017-03-16 12:03 | IRU Progress Note ---
- Subjective/Serverity of Illness Date: 03/16/17 Mr. Hutchinson was evaluated in his room with his present. Continues to be very weak. I reviewed with him the program expectations of 3 hours per day as well as the goal of getting him back home. He states that he does want to get back home and be able to get up and move around. He agreed verbally with me today to work hard and to presently 3 hours daily for activity. I discussed with therapy as well and so far his activity level is very poor. He denies any chest pain or shortness of breath. He does complain of neuropathic pain particularly in the left lower extremity. This is just above his ankle. It feels like a neuropathic sharp pain in the muscles and nerves he states. He is on gabapentin 3 mg 3 times a day +60 mg at bedtime. We had him on 300 mg at bedtime instead of 600 so we will change that. In addition, his wants us to use lidocaine with normal saline to get the dressings off. We have checked with when therapy who indicates that this is contraindicated in terms of wound healing. I discussed this with the and asked her to let us using normal saline and see how that goes. She agreed for the time being. He has been assessed by wound care and we appreciate their input and recommendations. Wounds have been redressed. Next we discussed his respiratory status. He is having some wheezing at the present time. He is recovering from influenza A and has received 5 days of Tamiflu. Does have a cough with creamy white sputum. He does have a few more wheezes today so we'll initiate aerosol treatments with albuterol. Next we discussed his CPAP at night. The current machine did not work well for him last night. His would like for him to use his own mask and tubing and for us to obtain an auto titrating device. I discussed this with respiratory therapy today and they will see what they can do. Finally, we discussed his bed situation. His would like him on a specialty mattress such as a bariatric bed. I discussed with the patient and his issue that this was not necessarily a different mattress and that our goal was to get him out of bed and get him moving. They understand that. However the current bed is too small and we will request a bariatric bed. 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 Question motivation. Discussed in detail very frankly with the patient and his the programmatic expectations of 3 hours daily and he agreed to this. 2. Acute on chronic diastolic heart failure with preserved ejection fraction: Weight appears to be stable at 130 kg. We will monitor carefully. No worsening edema at present. Lungs demonstrate wheezes but no crackles. 3. Acute on chronic hypoxemic respiratory failure with requirement for oxygen supplementation: Continues to require oxygen supplementation and this will be monitored. 4. Recent influenza A infection: Does have evidence of acute bronchospasm since his influenza A infection. May have had this before as well and we do not know. We will initiate aerosol treatments. 5. Chronic kidney disease stage III: Creatinine currently is 1.2 with an estimate GFR of 59 consistent with stage III chronic kidney disease. Continue to monitor. 6. Hyponatremia, multifactorial: Sodium is 130 and stable from [place]. 7. Chronic indwelling Sigala catheter secondary to chronic urinary urgency, frequency and incontinence with colonization but without active infection (no fever and no other symptoms): He continues to be afebrile and without acute symptoms. Catheter was changed recently in [place] by report. 8. Chronic leg wounds/ulcerations: Appreciate input of wound care nurse as well as current nursing on rehabilitation. 9. Atrial fibrillation: Remains on warfarin with pharmacy dosing. INR is therapeutic. 10. Multiple skin lesions including squamous cell carcinoma of left thomas, multiple apparent basal cell lesions and multiple decubitus lesions including both heels, low midline of his back. Please see previous detail regarding his wounds as well as the current wound care descriptions. Exam Vital Signs: Temperature 97.6 F 03/16/17 08:00 Pulse Rate 72 03/16/17 08:00 Respiratory Rate 24 03/16/17 08:00 Blood Pressure 113/68 03/16/17 08:00 Pulse Oximetry 95 03/16/17 10:19 Height/Weight/BMI: Height 1.7 m Weight 130.5 kg Body Mass Index 45.0 - Constitutional Present: mild distress (complains of pain left leg of a neuropathic nature.), well nourished, well developed, morbidly obese - Routine HEENT Exam Head: Present: normocephalic Eye: Present: EOMI, PERRL ENT: Present: mucous membranes moist - Routine Neck Exam Present: supple - Routine Respiratory Exam Present: dyspnea, decreased breath sounds, wheezes, diminished air movement - Routine Cardiovascular Exam Present: S1, S2, irregularly irregular. Absent: murmur - Routine Abdominal Exam Present: soft, normoactive bowel sounds, non distended. Absent: tenderness - Routine Extremities Exam Present: edema, pulses intact Comments: Extremities are unchanged at present. He does have dressings in place. There is edema. Pulses are present. Heels are suspended off the bed per his request and our recommendation. However they do demonstrate some degree of nonblanching pressure sore without break in the skin. - Routine Skin Exam Present: dry, warm, lesions (multiple skin lesions as identified previously many of which are likely basal cell cancers.), wounds - Routine Neurological Exam Present: alert, oriented X3, CN II-XII intact - Routine Psychiatric Exam Present: normal affect, normal thought process. Absent: good insight, good judgment Results IRU - Labs Labs: Have reviewed other providers notes including wound care nurse. Have reviewed labs and vital signs. 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 Reviewed expectations and encouraged full participation for 3 hours daily. Assessments and treatments are just starting. (2) Influenza A Current visit: Yes Status: Resolved (3) Rheumatoid arthritis Qualifiers: Rheumatoid arthritis location: multiple sites Rheumatoid factor presence: unspecified presence Qualified Code(s): M06.9 - Rheumatoid arthritis, unspecified Current visit: Yes Status: Chronic (4) Atrial fibrillation, chronic Current visit: Yes Status: Chronic INR is therapeutic at present. (5) (HFpEF) heart failure with preserved ejection fraction Current visit: Yes Status: Chronic Weight is stable. Lungs demonstrate wheezes but no evidence of crackles at present. (6) CKD (chronic kidney disease) stage 3, GFR 30-59 ml/min Current visit: Yes Status: Chronic (7) Squamous cell skin cancer Current visit: Yes Status: Chronic (8) Chronic indwelling Sigala catheter Current visit: Yes Status: Chronic (9) Acute on chronic respiratory failure with hypoxemia Current visit: Yes Status: Acute Continues to require supplemental oxygen. (10) Acute bronchospasm Current visit: Yes Status: Acute He has more wheezes today than I heard yesterday. We will start aerosol treatments with albuterol. (11) SONYA (obstructive sleep apnea) Current visit: Yes Status: Chronic Patient did not tolerate our machine last night. He would prefer an auto titrating machine. I discussed with respiratory therapy. DVT Prophylaxis: Coumadin Resuscitation Status: Do Not Resuscitate - Course Hospital Course: Pedro Pittman MD: 03/16/17 12:11 Multiple medical problems as outlined. Severe weakness noted. Just getting started with therapies. - Interventions to Obtain Goals PT Treatment Plan: Balance/Proprioception, Functional Activities, Gait Training , Patient/Family Education, Therapeutic Exercise OT Treatment Plan: ADL (Basic Care), Balance Training, Pt./Family Education, Ther. Exercise for ADL Goals Progress/Modifications: Time spent with patient and on floor reviewing data and documentin min Barriers to dismissal: Weakness, endurance, dyspnea, multiple skin wounds Medical decision-making: This patient is extremely complex. He does have multiple medical problems including heart failure with preserved ejection fraction, multiple skin lesions and wounds, acute bronchospasm likely induced by his recent influenza a although could've been chronic prior to admission as well. He has atrial fibrillation and is on Coumadin with pharmacy dosing and monitoring. His participation and motivation are encouraged strongly today. The following is instituted today: 1. Acquisition of bariatric bed 2. Acquisition of auto titrate CPAP machine if available 3. Long discussion with patient and regarding wounds and appropriate care 4. Initiation of aerosol treatments with albuterol 5. Increased gabapentin to 600 mg at bedtime due to his neuropathic pain Please note that the patient's individual plan of care was developed and documented today, requiring review of therapy notes, medical conditions and anticipated functional recovery. This required additional medical decision making with regard to interaction of the patient's medical issues with the anticipated functional recovery. Please see separate document
[2017-03-16] MEDS: CALCIUM CARBONATE Chewable 500mg TABLET PO SCH (12:33)
--- NOTE | 2017-03-16 13:38 | IRU Plan of Care ---
[facility] Overall Plan of Care - Date Date: 03/16/17 - Patient Impairments (1) Myopathy Code(s): G72.9 - Myopathy, unspecified Status: Acute Classification: Present on IRF Admission, IRF Tx That Should Address Diagnosis, Diagnosis Requiring Medical Follow Up (2) Influenza A Code(s): J10.1 - Influenza due to other identified influenza virus with other respiratory manifestations Status: Resolved Classification: IRF Tx That Should Address Diagnosis, Diagnosis Requiring Medical Follow Up (3) Rheumatoid arthritis Qualifiers: Rheumatoid arthritis location: multiple sites Rheumatoid factor presence: unspecified presence Qualified Code(s): M06.9 - Rheumatoid arthritis, unspecified Code(s): M06.9 - Rheumatoid arthritis, unspecified Status: Chronic Classification: Present on IRF Admission, Diagnosis Requiring Medical Follow Up (4) Atrial fibrillation, chronic Code(s): I48.2 - Chronic atrial fibrillation Status: Chronic Classification: Present on IRF Admission, IRF Tx That Should Address Diagnosis, Diagnosis Requiring Medical Follow Up (5) (HFpEF) heart failure with preserved ejection fraction Code(s): I50.30 - Unspecified diastolic (congestive) heart failure Status: Chronic Classification: Present on IRF Admission, IRF Tx That Should Address Diagnosis, Diagnosis Requiring Medical Follow Up (6) CKD (chronic kidney disease) stage 3, GFR 30-59 ml/min Code(s): N18.3 - Chronic kidney disease, stage 3 (moderate) Status: Chronic Classification: Present on IRF Admission, IRF Tx That Should Address Diagnosis, Diagnosis Requiring Medical Follow Up (7) Squamous cell skin cancer Code(s): C44.92 - Squamous cell carcinoma of skin, unspecified Status: Chronic Classification: Present on IRF Admission, Diagnosis Requiring Medical Follow Up (8) Chronic indwelling Sigala catheter Code(s): Z92.89 - Personal history of other medical treatment Status: Chronic Classification: Present on IRF Admission, Diagnosis Requiring Medical Follow Up (9) Acute on chronic respiratory failure with hypoxemia Code(s): J96.21 - Acute and chronic respiratory failure with hypoxia Status: Acute Classification: Present on IRF Admission, IRF Tx That Should Address Diagnosis, Diagnosis Requiring Medical Follow Up (10) Acute bronchospasm Code(s): J98.01 - Acute bronchospasm Status: Acute Classification: IRF Tx That Should Address Diagnosis (11) SONYA (obstructive sleep apnea) Code(s): G47.33 - Obstructive sleep apnea (adult) (pediatric) Status: Chronic Classification: Present on IRF Admission, IRF Tx That Should Address Diagnosis, Diagnosis Requiring Medical Follow Up - Relevant Changes Relevant Changes: No Reviewed: I have reviewed the patient's information and concur with the finding and results of the pre-admission screen. Certification: I certify the patient for rehabilitation. - Medical Prognosis Medical Prognosis: Good Vital Signs: Last Vital Signs Temp 97.6 F 03/16/17 08:00 Pulse 72 03/16/17 08:00 Resp 24 03/16/17 08:00 BP 113/68 03/16/17 08:00 Pulse Ox 95 03/16/17 10:19 - Anticipated Interventions Anticipated Interventions: The patient requires inpatient IRF care for PT, OT, and/or ST for residuals remaining from influenza A and disuse myopathy resulting in muscular weakness and strength deficits. An individualized overall plan of care has been developed after careful review of the patient's preadmission screening, post admission physician evaluation and assessments of all therapy disciplines and/ or other pertinent clinicians involved in treating the patient. This indicates medical necessity and rehabilitation necessity have been established through a thorough review of all available medical information. Strength Deficits: Right Lower Extremity, Left Lower Extremity - Current Functional Status Failed Alternative Therapy: Arrived from Acute Care Patient Requires: The patient requires oversight by rehabilitation physician to manage their rehabilitation treatment plan and multidisciplinary approach to care that can only be provided in an IRF and requires a multidisciplinary approach to care, provided by professional PTs, OTs, STs, rehabilitation nurses, and may require STs, dieticians, and RTS. This is not available in lesser levels of care. Physical Therapy Minutes: 90 Occupational Therapy Minutes: 90 Therapy: The patient is to receive therapy at least 5 days a week. - Anticipated LOS/Outcomes Anticipated Functional Outcome: Expected functional improvements include: -- Modified independant to independant ambulation with or without assistive device -- Modified independant to independant ADL's with or without assistive device -- Return to pre-morbid level of mobility -- Maximize level of mobility and ADL's to decrease burden on any caregiver involved with this patient's care It is anticipated the patient will be able to return to his home with the assistance of his and home health care and provide most of his own ADLs and ambulation Anticipated Length of Stay (days): 10 Anticipated DC Destination: Home, Self Care, Home Health Service Home Safety Plan: The patient will be provided with the development of a Home Safety Plan for return to a home or home-like environment and and to ensure safety post discharge. - Plan to Avoid Complications Barriers to Attaining Goals: Weakness, Balance, Endurance, Pain Control, Medical Limitation Plan to Avoid Complications: The patient cannot receive this care in a lesser intensive setting such as Correction or Outpatient Therapy due to the patient requiring the following : This extremely medically complex patient requires close monitoring of numerous physical findings including his weight, pulmonary status (bronchospasm and risk of further pulmonary infection after influenza A), wound care which is extensive, atrial fibrillation and monitoring of INR and sodium (hyponatremia). He requires a multidisciplinary approach with intensive, individualized occupational therapy and physical therapy with medical supervision to allow him to return to his home. This is not available at a lesser intensive setting.
--- NOTE | 2017-03-16 13:58 | Pharmacy Consult ---
Pharmacy Consult-Warfarin - Laboratory Information 03/16/17 05:38 INR 2.18 H - Consult Information WARFARIN THERAPY: 76 y.o. Male with history of A. Fib. and chronic anticoagulation with warfarin. Home dose reported as Warfarin 2mg daily, except on Fridays takes 1mg. goal INR range= 2.0 to 3.0 Date INR dose 03/15 - 2 mg 03/16 2.18 plan: 2 mg Will give Warfarin 2mg po x 1 dose. Pharmacy will monitor and adjust as needed. Thank you, Sienna Reid [facility]
[2017-03-16] MEDS: ALBUTEROL 2.5mg/0.5ml (0.5%) NEB AEROSOL SCH ×2 (17:02→21:05)
[2017-03-16] MEDS: POLYETHYL GLYCOL 3350 17gm PACKET PO SCH (21:38)
[2017-03-16] MEDS: GABAPENTIN 600 MG TABLET PO SCH (21:38)
[2017-03-17] MEDS: PANTOPRAZOLE 40 MG TABLET PO SCH (07:10)
[2017-03-17] MEDS: Oxycodone *IR* 5 MG TABLET PO PRN ×4 (07:10→23:57)
--- NOTE | 2017-03-17 07:37 | Pharmacy Consult ---
Pharmacy Consult-Warfarin - Laboratory Information 03/16/17 03/17/17 05:38 04:50 INR 2.18 H 2.04 H WARFARIN THERAPY: 76 y.o. Male with history of A. Fib. and chronic anticoagulation with warfarin. Home dose reported as Warfarin 2mg daily, except on Fridays takes 1mg. goal INR range= 2.0 to 3.0 Date INR dose 03/15 - 2 mg 03/16 2.18 2 mg 03/17 2.04 Will repeat 2mg dose again. Thank you
[2017-03-17] MEDS: COENZYME Q-10 200mg TABLET PO SCH (08:59)
[2017-03-17] MEDS: SENNA + DOCUSATE TABLET PO SCH ×2 (08:59→21:05)
[2017-03-17] MEDS: NYSTATIN 500,000 units/5 ml ORAL LIQUID PO SCH ×4 (08:59→21:04)
[2017-03-17] MEDS: FERROUS SULFATE 324 MG TABLET PO SCH (09:00)
[2017-03-17] MEDS: FUROSEMIDE 40 MG TABLET PO SCH (09:00)
[2017-03-17] MEDS: ASCORBIC ACID 500 MG TABLET PO SCH (09:00)
[2017-03-17] MEDS: LACTOBACILLUS (15B cfu) CAPSULE PO SCH (09:00)
[2017-03-17] MEDS: PredniSONE 20 MG TABLET PO SCH (09:00)
[2017-03-17] MEDS: GABAPENTIN 300 MG CAPSULE PO SCH ×3 (09:00→21:04)
[2017-03-17] MEDS: MAGNESIUM OXIDE 400 MG TABLET PO SCH (09:01)
[2017-03-17] MEDS: ESCITALOPRAM 20 MG TABLET PO SCH (09:01)
[2017-03-17] MEDS ORDERED: SALINE 0.65% NASAL SPRAY 44 ML BOTTLE EA NOSTRIL PRN (09:50)
[2017-03-17] MEDS: SPIRONOLACTONE 50 MG TABLET PO SCH ×2 (10:26→21:21)
[2017-03-17] MEDS ORDERED: WARFARIN 2 MG TABLET PO SCH (12:00)
[2017-03-17] MEDS: CALCIUM CARBONATE Chewable 500mg TABLET PO SCH (12:39)
[2017-03-17] MEDS: SIMETHICONE 80 MG CHEWABLE TABLET PO PRN ×2 (13:30→17:48)
[2017-03-17] MEDS: ALBUTEROL 2.5mg/0.5ml (0.5%) NEB AEROSOL SCH ×4 (14:26→20:09)
[2017-03-17] MEDS: GABAPENTIN 600 MG TABLET PO SCH (21:04)
[2017-03-17] MEDS: POLYETHYL GLYCOL 3350 17gm PACKET PO SCH (21:05)
[2017-03-17] MEDS: ACETAMINOPHEN 325 MG TABLET PO PRN (21:06)
[2017-03-18] MEDS: PANTOPRAZOLE 40 MG TABLET PO SCH ×2 (05:10→07:43)
[2017-03-18] MEDS: Oxycodone *IR* 5 MG TABLET PO PRN ×5 (05:11→21:52)
[2017-03-18] MEDS: ALBUTEROL 2.5mg/0.5ml (0.5%) NEB AEROSOL SCH ×4 (05:28→20:03)
--- NOTE | 2017-03-18 08:01 | Pharmacy Consult ---
Pharmacy Consult-Warfarin - Laboratory Information 03/16/17 03/17/17 03/18/17 05:38 04:50 04:47 INR 2.18 H 2.04 H 2.00 H 76 y.o. Male with history of A. Fib. and chronic anticoagulation with warfarin. Home dose reported as Warfarin 2mg daily, except on Fridays takes 1mg. goal INR range= 2.0 to 3.0 Date INR dose 03/15 - 2 mg 03/16 2.18 2 mg 03/17 2.04 2mg 03/18 2.00 INR trending downward. Will give Warfarin 2.5mg today to boost INR, x 1 day. Repeat INR tomorrow am. Thank you
[2017-03-18] MEDS: ACETAMINOPHEN 325 MG TABLET PO PRN ×2 (08:32→23:12)
[2017-03-18] MEDS: GABAPENTIN 300 MG CAPSULE PO SCH ×3 (09:28→21:51)
[2017-03-18] MEDS: NYSTATIN 500,000 units/5 ml ORAL LIQUID PO SCH ×4 (09:31→21:51)
[2017-03-18] MEDS: COENZYME Q-10 200mg TABLET PO SCH (09:32)
[2017-03-18] MEDS: LACTOBACILLUS (15B cfu) CAPSULE PO SCH (09:33)
[2017-03-18] MEDS: ESCITALOPRAM 20 MG TABLET PO SCH (09:33)
[2017-03-18] MEDS: PredniSONE 20 MG TABLET PO SCH (09:34)
[2017-03-18] MEDS: MAGNESIUM OXIDE 400 MG TABLET PO SCH (09:34)
[2017-03-18] MEDS: SENNA + DOCUSATE TABLET PO SCH ×2 (09:34→21:52)
[2017-03-18] MEDS: ASCORBIC ACID 500 MG TABLET PO SCH (09:34)
[2017-03-18] MEDS: FERROUS SULFATE 324 MG TABLET PO SCH (09:35)
[2017-03-18] MEDS: FUROSEMIDE 40 MG TABLET PO SCH (09:35)
[2017-03-18] MEDS: SPIRONOLACTONE 50 MG TABLET PO SCH ×2 (09:35→21:51)
[2017-03-18] MEDS ORDERED: WARFARIN 2.5 MG TABLET PO SCH (12:00)
[2017-03-18] MEDS: CALCIUM CARBONATE Chewable 500mg TABLET PO SCH (13:09)
--- NOTE | 2017-03-18 14:09 | Progress Note ---
- Date 03/18/17 Subjective: Overall, Devendra reports that rehab is doing well and both he and his Barbara think that he's getting stronger. He denies SOA or chest pain but tends to get bloated frequently and have "gas pain" after meals. At home he takes simethicone TID after meals but he's only on it once a day here. He also routinely wakes up around 0200 with foot/ankle pain and his asks if his gabapentin dose can be adjusted to help control this. We reviewed his elevated TSH - reports that he had been on Synthroid in [place]. Barbara also states that it looks like he's starting to retain more fluid and he tends to suddenly have problems breathing when this happens. He used to be on Lasix TID but is now on it only once a day. Objective Vital signs: Temperature 97.4 F 03/18/17 08:00 Pulse Rate 76 03/18/17 08:00 Respiratory Rate 22 03/18/17 10:48 Blood Pressure 131/78 03/18/17 08:00 Pulse Oximetry 94 03/18/17 08:00 Height/Weight/BMI: Height 1.7 m Weight 128.5 kg Body Mass Index 45.0 - Constitutional Present: no acute distress, well nourished, well developed - Routine HEENT Exam Head: Present: normocephalic Eye: Present: PERRL. Absent: conjunctival icterus, scleral injection ENT: Present: oropharynx clear - Routine Respiratory Exam Comments: coarse breath sounds bilaterally - Routine Cardiovascular Exam Present: S1, S2, murmur - Routine Abdominal Exam Present: normoactive bowel sounds, non tender, distended - Routine Extremities Exam Present: edema (has mild pitting edema to the dependent portions of his hips and upper legs) - Routine Skin Exam Present: lesions (multiple skin cancer lesions to face) Comments: mepilex dsgs to right lower ext; left lower ext with gauze bulky dsg - Routine Neurological Exam Present: alert, oriented X3, normal speech - Routine Psychiatric Exam Present: normal affect, normal thought process, cooperative Results - Labs CBC & Chem 7: 03/19/17 04:07 03/20/17 04:19 Assessment and Plan (1) Myopathy Current visit: Yes Status: Acute (2) Squamous cell skin cancer Current visit: Yes Status: Chronic (3) Acute on chronic respiratory failure with hypoxemia Current visit: Yes Status: Acute Assessment and Plan: Impression Generalized Myopathy Skin lesions consistent with basal cell and squamous cell carcinoma Recent influenza A with continued hypoxia. Chronic atrial fibrillation Congestive heart failure. 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 Hypertension AAA Coronary artery disease Peripheral vascular disease Hypothyroidism history of asthma history of seizures Plan Give additional Lasix 40 mg PO now; start daily weights. Sounds like he has a hx of flash pulmonary edema; reports he was previously on Lasix TID then was decreased to BID -- monitor fluid status closely as we may need to provide extra diuresis periodically versus adding another dose in the afternoon. Will recheck BMP in am. Change dosing of gabapentin to 300 mg TID and 300 mg at 0200, per 's request. Increase simethicone to home dosing schedule. Resume levothyroxine 50 mcg -- he took this in [place]. Consider wound consultation. Suspect mild leukocytosis is chronic given prednisone use though will recheck CBC in am to document stability. INR is therapeutic. High risk medication in use. Addendum by Dr. Pate: Seen and examined patient on same day as the above note. Agree with subjective note, physical exam, assessment and plan. Comprehensive physical findings correlate to the above note. Documented on Dragon speech to text. Efforts to correct speech recognition errors performed, but variation may exist DVT Prophylaxis: Coumadin GI Prophylaxis: Protonix Resuscitation Status: Full Code - Physician Narrative Narrative: Date: 03/18/17 Time: 1406 Hospital Course Summary Disclaimer: The visit summary below is not to be considered part of the above Progress Note. Hospital Course: Plan Agree with admission to inpatient rehabilitation unit under the care of Dr. Pittman for significant myopathy and weakness secondary to recent acute hospitalization and illness. Patient does have a very complex past medical history and current chronic comorbidities. Appreciate hospitalist consultation for assistance in medical management. Consultation placed with the wound care team for evaluation and recommendations of ongoing wound care. Left leg squamous cell carcinoma-stable. Patient scheduled to follow with radiation oncology once medically improved. does report that she would like to use her homemade "save" which contains eggplant an essential oil. Consult to pharmacy for ongoing management of INR and Coumadin dosing. Patient has known positive urine culture for VRE. Will forego any treatment. Given chronic colonization of indwelling Sigala catheter Patient does wish to be a full code and this orders written. Appreciate medical consultation, the hospitalist services will continue to follow patient medically manage his existing comorbidities during his stay on IRU unit. At time of discharge his medical care will return to his primary care provider in Dr. Doug Ang in [place] 03/18/17 Give additional Lasix 40 mg PO now; start daily weights. Sounds like he has a hx of flash pulmonary edema; reports he was previously on Lasix TID then was decreased to BID -- monitor fluid status closely as we may need to provide extra diuresis periodically versus adding another dose in the afternoon. Will recheck BMP in am. Change dosing of gabapentin to 300 mg TID and 300 mg at 0200, per 's request. Increase simethicone to home dosing schedule. Resume levothyroxine 50 mcg -- he took this in [place]. Consider wound consultation. Suspect mild leukocytosis is chronic given prednisone use though will recheck CBC in am to document stability. INR is therapeutic.
[2017-03-18] MEDS ORDERED: FUROSEMIDE 20 MG TABLET PO ONE (14:11)
[2017-03-18] MEDS: SIMETHICONE 80 MG CHEWABLE TABLET PO SCH ×2 (18:01→21:52)
[2017-03-18] MEDS: POLYETHYL GLYCOL 3350 17gm PACKET PO SCH (21:51)
[2017-03-19] MEDS: GABAPENTIN 300 MG CAPSULE PO SCH ×4 (01:49→21:21)
[2017-03-19] MEDS: ALBUTEROL 2.5mg/0.5ml (0.5%) NEB AEROSOL SCH ×4 (05:20→19:57)
[2017-03-19] MEDS: PANTOPRAZOLE 40 MG TABLET PO SCH (05:39)
[2017-03-19] MEDS: Oxycodone *IR* 5 MG TABLET PO PRN ×5 (05:39→22:02)
[2017-03-19] MEDS: LEVOTHYROXINE 50 MCG TABLET PO SCH (05:39)
--- NOTE | 2017-03-19 07:38 | Pharmacy Consult ---
Pharmacy Consult-Warfarin - Laboratory Information 03/16/17 03/17/17 03/18/17 05:38 04:50 04:47 INR 2.18 H 2.04 H 2.00 H 03/19/17 04:07 INR 2.05 H - Consult Information Warfarin 2.5mg ordered for noon today. Will continue to monitor. Thank you.
[2017-03-19] MEDS: COENZYME Q-10 200mg TABLET PO SCH (08:10)
[2017-03-19] MEDS: NYSTATIN 500,000 units/5 ml ORAL LIQUID PO SCH ×4 (08:10→21:21)
[2017-03-19] MEDS: PredniSONE 20 MG TABLET PO SCH (08:11)
[2017-03-19] MEDS: LACTOBACILLUS (15B cfu) CAPSULE PO SCH (08:11)
[2017-03-19] MEDS: FUROSEMIDE 40 MG TABLET PO SCH (08:11)
[2017-03-19] MEDS: ESCITALOPRAM 20 MG TABLET PO SCH (08:11)
[2017-03-19] MEDS: ACETAMINOPHEN 325 MG TABLET PO PRN ×2 (08:12→23:55)
[2017-03-19] MEDS: SENNA + DOCUSATE TABLET PO SCH ×2 (08:12→21:21)
[2017-03-19] MEDS: SPIRONOLACTONE 50 MG TABLET PO SCH (08:13)
[2017-03-19] MEDS: ASCORBIC ACID 500 MG TABLET PO SCH (08:14)
[2017-03-19] MEDS: MAGNESIUM OXIDE 400 MG TABLET PO SCH (08:15)
[2017-03-19] MEDS: FERROUS SULFATE 324 MG TABLET PO SCH (08:15)
[2017-03-19] MEDS: SIMETHICONE 80 MG CHEWABLE TABLET PO SCH ×4 (09:52→21:20)
--- NOTE | 2017-03-19 11:58 | IRU Progress Note ---
- Subjective/Serverity of Illness Date: 03/19/17 Mr. Hutchinson was seen in his room with his present as well as nurse. Also discussed the case with the therapist. He is making small incremental progress. He gets tired very easily and obviously is extremely deconditioned. Continues to demonstrate significant disuse myopathy. His is concerned about the nasal CPAP. His own machine which was set at 10 cm water pressure at home, is broken. However they do have his mask. His believes that the current [facility] mask does not fit his face. They would like to be on auto titrate machine which he was in [place]. I discussed with respiratory therapy on a couple of occasions. They have tried to work with him but due to incompatibility of his own mask with the hospitalist tubing, it is recommended that he continue using the [facility] CPAP and the [facility] mask for best and safe practice. With regard to his wounds, his continues to request we used lidocaine to remove the dressings. She states that they were allowed to do this in [place]. They states that wound clinic there allow this every 3 days. I will discuss with wound clinic there and also with our local wound care nurse. Continues to have a cough with occasional sputum. Does have dyspnea with activity. Denies chest pain. He is having bowel movements and doing well in that regard. I have reviewed hospitalist notes. He does complain of neuropathic pain and for this reason gabapentin was increased. Gabapentin was added on in the middle the night. Additional Lasix was provided. Brief therapy update: Have discussed with therapists as well as reviewed their notes. Continues to make very slight but incremental progress. Lyrica retreating to maximize his benefit and for safety. Update on medical problems were actively monitoring and managing as follows: 1. Disuse myopathy: Very deconditioned. Patient is participating with therapy. Progress slow. 2. Acute on chronic diastolic heart failure with preserved ejection fraction: Lungs continue to demonstrate a few wheezes. Weight is improved at 128 kg. I do not see any edema at present. 3. Acute on chronic hypoxemic respiratory failure with requirement for oxygen supplementation: He is on room air at times but usually require some supplemental oxygen to keep his saturations above 90%. 4. Recent influenza A infection: Continues to demonstrate expiratory wheezes presumably since his influenza A infection. He is on inhaled bronchodilators and tolerating these well. 5. Chronic kidney disease stage III: Creatinine stable. 6. Hyponatremia, multifactorial: Sodium has reduced to 127 likely multifactorial. 7. Chronic indwelling Sigala catheter secondary to chronic urinary urgency, frequency and incontinence with colonization but without active infection (no fever and no other symptoms): He is afebrile. 8. Chronic leg wounds/ulcerations: Wound care following wounds. Has developed "kissing" lesions in the upper buttocks. Presacral area does not actually have ulcer present but there are too small 1 cm breaks in the skin on either side of the sacrum area 9. Atrial fibrillation: Remains on warfarin with pharmacy dosing. INR is therapeutic. 10. Multiple skin lesions including squamous cell carcinoma of left thomas, multiple apparent basal cell lesions and multiple decubitus lesions including both heels, low midline of his back. Wound care has seen and has made a chart of his wounds. Exam Vital Signs: Temperature 97.4 F 03/19/17 08:00 Pulse Rate 70 03/19/17 08:00 Respiratory Rate 20 03/19/17 08:00 Blood Pressure 111/47 03/19/17 08:00 Pulse Oximetry 99 03/19/17 08:00 Height/Weight/BMI: Height 1.7 m Weight 128 kg Body Mass Index 45.0 - Constitutional Present: mild distress, well nourished, well developed, morbidly obese - Routine HEENT Exam Head: Present: normocephalic Eye: Present: EOMI ENT: Present: mucous membranes moist - Routine Neck Exam Present: supple - Routine Respiratory Exam Present: dyspnea, decreased breath sounds, prolonged expiratory phase, wheezes ( bilateral expiratory wheezes) - Routine Cardiovascular Exam Present: S1, S2, murmur, irregularly irregular - Routine Abdominal Exam Present: soft, normoactive bowel sounds, non distended. Absent: tenderness - Routine Extremities Exam Present: no edema (I do not see edema at this time. Multiple wounds present of course.), normal capillary refill - Routine Skin Exam Present: dry, warm, wounds Comments: Patient has numerous wounds. I did not remove the dressings at this time. However I did inspect his buttock area and presacral region. Has excoriation on both sides of the buttocks. Has 2 small lesions each measuring about 1 cm which are "kissing" lesions in the upper buttock area. These are noninflamed. - Routine Neurological Exam Present: alert, oriented X3, CN II-XII intact - Routine Psychiatric Exam Present: normal affect, cooperative. Absent: good insight, good judgment Results IRU - Labs Labs: Have reviewed all chart data, lab work and other providers notes. IRU A/P (1) Myopathy Current visit: Yes Status: Acute Patient is severely deconditioned. He is cooperative with therapy but making very slow progress. Continue working with him. (2) Influenza A Current visit: Yes Status: Resolved (3) Rheumatoid arthritis Qualifiers: Rheumatoid arthritis location: multiple sites Rheumatoid factor presence: unspecified presence Qualified Code(s): M06.9 - Rheumatoid arthritis, unspecified Current visit: Yes Status: Chronic His joint pains as well as neuropathy are barriers to his progress. (4) Atrial fibrillation, chronic Current visit: Yes Status: Chronic INR reviewed and is therapeutic. (5) (HFpEF) heart failure with preserved ejection fraction Current visit: Yes Status: Chronic Weight is down. Additional Lasix was provided. (6) CKD (chronic kidney disease) stage 3, GFR 30-59 ml/min Current visit: Yes Status: Chronic (7) Squamous cell skin cancer Current visit: Yes Status: Chronic (8) Chronic indwelling Sigala catheter Current visit: Yes Status: Chronic (9) Acute on chronic respiratory failure with hypoxemia Current visit: Yes Status: Acute Continues to require supplemental oxygen from time to time. Does get by on room air occasionally. (10) Acute bronchospasm Current visit: Yes Status: Acute Does have a cough and is producing occasional sputum. He is on inhaled bronchodilators. Expiratory wheezes noted. (11) SONYA (obstructive sleep apnea) Current visit: Yes Status: Chronic Please see above discussion regarding his mask. DVT Prophylaxis: Coumadin Resuscitation Status: Full Code - Course Hospital Course: Pedro Pittman MD: 03/16/17 12:11 Multiple medical problems as outlined. Severe weakness noted. Just getting started with therapies. 03/19/17 12:04 Patient is cooperative and participates with therapy although progress is quite slow. Continues to have expiratory wheezes. He is afebrile. Numerous skin lesions identified. would like to have lidocaine used for dressing removal. I will discuss with wound care. - Interventions to Obtain Goals PT Treatment Plan: Balance/Proprioception, Functional Activities, Gait Training , Patient/Family Education, Therapeutic Exercise OT Treatment Plan: ADL (Basic Care), Balance Training, Pt./Family Education, Ther. Exercise for ADL Goals Progress/Modifications: Time spent with patient and on floor reviewing data and documentin min Barriers to dismissal: Deconditioning, weakness, endurance, dyspnea, obesity Medical decision-making: Spent a prolonged time with patient and discussing their concerns. We discussed nasal CPAP, obstructive sleep apnea, wound care and requests for lidocaine spray. Also discussed his therapy and exercise tolerance etc. I believe he is stable to continue therapy. I will discuss the issue with wound care in [place] regarding the use of lidocaine. In addition I've discussed with respiratory therapy here on a couple of occasions today as well as last week the use of his nasal CPAP etc.
[2017-03-19] MEDS ORDERED: WARFARIN 2.5 MG TABLET PO SCH (12:00)
[2017-03-19] MEDS: CALCIUM CARBONATE Chewable 500mg TABLET PO SCH (12:26)
--- NOTE | 2017-03-19 17:49 | Wound Care Progress Note ---
Wound Center Progress Note: In to assess pt again today. At the time of entering was on the phone with the Pt's wound care center in [place]. The ask that I talk with the wound care center about their treatment of pt wounds. The pt and are wanting to use Lidocaine spray frequently to assist with pain. Upon admission it was explained to pt that Lidocaine can inhibit healing in a wound. After today's discussion it was agreed upon that the spray would be used only during dressing changes. and pt agreed. At this time I was asked to checks heels which I had done on 03/16/17 when I found no issues. At that time I recommended Yellow posy foam boots for heel protection. Pt assured me he would float his heels and he didn't want the boots. Again today I assessed heels they are tender to the touch however, no breakdown or redness were present. Again I recommended the foam posy boots to which the pt refused. I address the left thomas which has a large cancer mass, cleaned and applied the pultuse the family provides. The left posterior calf wound was treated again with Isorbide and covered with mepilex. That whole left leg then is covered with kerlex. Right calf composite wound is red and showing some maceration at this time applied calmosceptine around the wound on the leonela skin. Mepliex applied to the wound.The right thomas was also redress with Pomogren and Mepliex. Right knee was redressed with Pomogran and Mepliex. Posterior right calf with Isorbide and Mepliex. Discussed use of rotation on bed to relieve pressure points. Will follow up in the AM
[2017-03-19] MEDS: POLYETHYL GLYCOL 3350 17gm PACKET PO SCH (21:21)
[2017-03-20] MEDS: Oxycodone *IR* 5 MG TABLET PO PRN ×6 (02:10→23:01)
[2017-03-20] MEDS: GABAPENTIN 300 MG CAPSULE PO SCH ×4 (02:10→21:59)
[2017-03-20] MEDS: ALBUTEROL 2.5mg/0.5ml (0.5%) NEB AEROSOL SCH ×4 (05:14→20:32)
[2017-03-20] MEDS: PANTOPRAZOLE 40 MG TABLET PO SCH (05:55)
[2017-03-20] MEDS: LEVOTHYROXINE 50 MCG TABLET PO SCH (05:55)
--- NOTE | 2017-03-20 08:02 | Pharmacy Consult ---
Pharmacy Consult-Warfarin - Laboratory Information 03/16/17 03/17/17 03/18/17 05:38 04:50 04:47 INR 2.18 H 2.04 H 2.00 H 03/19/17 03/20/17 04:07 04:19 INR 2.05 H 2.09 H - Consult Information Warfarin 2.5mg po ordered for noon today. Will continue to monitor. Thank you.
[2017-03-20] MEDS: PredniSONE 20 MG TABLET PO SCH (08:38)
[2017-03-20] MEDS: COENZYME Q-10 200mg TABLET PO SCH (08:39)
[2017-03-20] MEDS: FERROUS SULFATE 324 MG TABLET PO SCH (08:39)
[2017-03-20] MEDS: FUROSEMIDE 40 MG TABLET PO SCH ×2 (08:39→14:12)
[2017-03-20] MEDS: SIMETHICONE 80 MG CHEWABLE TABLET PO SCH ×4 (08:39→22:00)
[2017-03-20] MEDS: SENNA + DOCUSATE TABLET PO SCH ×2 (08:41→21:59)
[2017-03-20] MEDS: ASCORBIC ACID 500 MG TABLET PO SCH (08:42)
[2017-03-20] MEDS: NYSTATIN 500,000 units/5 ml ORAL LIQUID PO SCH ×4 (08:42→21:59)
[2017-03-20] MEDS: LACTOBACILLUS (15B cfu) CAPSULE PO SCH (08:42)
[2017-03-20] MEDS: MAGNESIUM OXIDE 400 MG TABLET PO SCH (08:46)
[2017-03-20] MEDS: ESCITALOPRAM 20 MG TABLET PO SCH (08:49)
--- NOTE | 2017-03-20 10:41 | IRU Progress Note ---
- Subjective/Serverity of Illness Date: 03/20/17 Mr. Hutchinson was evaluated in his room with his present today. He did not sleep well last night secondary to neuropathic pain in the lower extremities. Gabapentin has recently been increased/added on in the middle of the night per the hospitalist. I discussed with wound care in [place] where he had been seen previously as well as with wound care nurse here. Decision has been made to go ahead and allow them to use 50% lidocaine/normal saline solution for dressing changes per ' s request. They're aware of risk of poor wound healing in this regard. Brief therapy update: Patient is cooperative with therapy and does participate. Progress is very slow due to easy fatigability and deconditioning. Has dyspnea with activity as well as significantly becoming very tired. He is being co- treated with PT and OT. Medically he has multiple wounds which are being addressed. Wounds were redressed yesterday late afternoon per wound care nurse. The 2 areas on the upper buttock (kissing lesions) are smaller today. This was reviewed today as well. Respiratory therapy was able to work with the patient's mask and attach it to our machine. Therefore he was able to use the nasal CPAP all night last night. He is also now willing to use the yellow foam booties and this was strongly recommended. He had refused these initially but now he is willing to do that. Exam Vital Signs: Temperature 97.4 F 03/20/17 08:35 Pulse Rate 88 03/20/17 10:24 Respiratory Rate 20 03/20/17 08:35 Blood Pressure 111/69 03/20/17 10:15 Pulse Oximetry 96 03/20/17 10:24 Height/Weight/BMI: Height 1.7 m Weight 128 kg Body Mass Index 45.0 - Constitutional Present: mild distress, well nourished, well developed, morbidly obese, cooperative - Routine HEENT Exam Head: Present: normocephalic Eye: Present: EOMI ENT: Present: mucous membranes moist - Routine Neck Exam Present: supple - Routine Respiratory Exam Present: dyspnea, CTA bilaterally. Absent: respiratory distress, rhonchi, stridor, wheezes - Routine Cardiovascular Exam Present: RRR, S1, S2. Absent: murmur - Routine Abdominal Exam Present: soft, normoactive bowel sounds, non distended. Absent: tenderness - Routine Extremities Exam Present: no edema - Routine Skin Exam Present: dry, warm, wounds Comments: Multiple skin lesions again identified. I did not review each one of these today but did inspect the buttock lesions. He has some excoriation on both sides the buttock. Presacral region itself does not have any pressure lesions. There is a mid to upper lumbar pressure area with dressing in place. 2 decubitus lesions are noted in a "kissing" fashion in the upper buttocks. This has been addressed as well. - Routine Neurological Exam Present: alert, oriented X3, CN II-XII intact - Routine Psychiatric Exam Present: normal affect, cooperative. Absent: good insight, good judgment Results IRU - Labs Labs: I reviewed the patient's labs, vital signs and other providers notes. IRU A/P (1) Myopathy Current visit: Yes Status: Acute Continues to demonstrate significant disuse myopathy with proximal muscle weakness. He is however participating with therapy and cooperative. (2) Influenza A Current visit: Yes Status: Resolved (3) Rheumatoid arthritis Qualifiers: Rheumatoid arthritis location: multiple sites Rheumatoid factor presence: unspecified presence Qualified Code(s): M06.9 - Rheumatoid arthritis, unspecified Current visit: Yes Status: Chronic (4) Atrial fibrillation, chronic Current visit: Yes Status: Chronic INR is therapeutic. (5) (HFpEF) heart failure with preserved ejection fraction Current visit: Yes Status: Chronic Weight is reviewed and is down 2 kg. Remains on metolazone. (6) CKD (chronic kidney disease) stage 3, GFR 30-59 ml/min Current visit: Yes Status: Chronic (7) Squamous cell skin cancer Current visit: Yes Status: Chronic (8) Chronic indwelling Sigala catheter Current visit: Yes Status: Chronic (9) Acute on chronic respiratory failure with hypoxemia Current visit: Yes Status: Acute Continues to require oxygen supplementation. Saturations reviewed. (10) Acute bronchospasm Current visit: Yes Status: Acute (11) SONYA (obstructive sleep apnea) Current visit: Yes Status: Chronic DVT Prophylaxis: Coumadin Resuscitation Status: Full Code - Course Hospital Course: Pedro Pittman MD: 03/16/17 12:11 Multiple medical problems as outlined. Severe weakness noted. Just getting started with therapies. 03/19/17 12:04 Patient is cooperative and participates with therapy although progress is quite slow. Continues to have expiratory wheezes. He is afebrile. Numerous skin lesions identified. would like to have lidocaine used for dressing removal. I will discuss with wound care. 03/20/17 10:44 Multiple skin lesions will require continued meticulous nursing management. Medically he seems stable. Lungs are clear. INR is therapeutic. He is participating with therapy. - Interventions to Obtain Goals PT Treatment Plan: Balance/Proprioception, Functional Activities, Gait Training , Patient/Family Education, Therapeutic Exercise OT Treatment Plan: ADL (Basic Care), Balance Training, Pt./Family Education, Ther. Exercise for ADL Goals Progress/Modifications: Time spent with patient and on floor reviewing data and documentin min Barriers to dismissal: Pain, multiple wounds, debilitation Medical decision-making: Patient has history of heart failure with preserved ejection fraction. His weight is stable to decreased. Does not have much in the way of edema. His lungs are clear. He is deciding with therapy although progress is extremely slow. He is very debilitated with evidence of ongoing disuse myopathy. Medically he is stable at the present time. He was able to use his CPAP mask last night which is an improvement. White count minimally up at 11 ,000. No evidence of ongoing pulmonary infection at present.
[2017-03-20] MEDS ORDERED: WARFARIN 2.5 MG TABLET PO SCH (12:00)
[2017-03-20] MEDS: CALCIUM CARBONATE Chewable 500mg TABLET PO SCH (12:45)
--- NOTE | 2017-03-20 13:06 | Progress Note ---
- Date 03/20/17 Subjective: Devendra was in bed, at bedside. He's complaining of pain under his left breast -- he has an open area of yeast induced skin breakdown under the skin fold. His still feels like he's fluid positive and told me he used to be on Lasix 60 mg TID which was slowly tapered down. Barbara also confirmed a hx of low sodium levels. He is very deconditioned but they both are seeing improvement in strength; however, trying to get out of bed to use the bathroom tires him out to the point that he'd rather just use a bedpan so that he can conserve energy for therapy. He's not short of breath at rest but noticed increased shortness of breath with activity today and his RN reports that his HR increased to 150s with activity. Objective Vital signs: Temperature 97.4 F 03/20/17 08:35 Pulse Rate 88 03/20/17 10:24 Respiratory Rate 22 03/20/17 12:30 Blood Pressure 111/69 03/20/17 10:15 Pulse Oximetry 97 03/20/17 12:30 Height/Weight/BMI: Height 1.7 m Weight 128 kg Body Mass Index 45.0 - Constitutional Present: no acute distress, well nourished, well developed, morbidly obese - Routine HEENT Exam Head: Present: normocephalic Eye: Absent: conjunctival icterus, scleral injection - Routine Respiratory Exam Present: decreased breath sounds - Routine Cardiovascular Exam Present: S1, S2, murmur, irregular rhythm - Routine Abdominal Exam Present: soft, normoactive bowel sounds, non distended, distended (mild) - Routine Extremities Exam Present: edema (dependent portions of hips, lower back) - Routine Musculoskeletal Exam Musculoskeletal: Present: limited range of motion - Routine Skin Exam Present: dry, warm Comments: multiple dressings to legs, back, coccyx multiple facial lesions excoriation and intertriginous candidiasis to skin under left breast - Routine Neurological Exam Present: alert, oriented X3, normal speech - Routine Psychiatric Exam Present: normal affect, normal thought process, cooperative Results - Labs CBC & Chem 7: 03/19/17 04:07 03/20/17 04:19 Assessment and Plan (1) Myopathy Current visit: Yes Status: Acute (2) Squamous cell skin cancer Current visit: Yes Status: Chronic (3) Acute on chronic respiratory failure with hypoxemia Current visit: Yes Status: Acute Assessment and Plan: Impression Generalized Myopathy Skin lesions consistent with basal cell and squamous cell carcinoma Recent influenza A with continued hypoxia. Hyponatremia, chronic Intertriginous dermatitis Chronic atrial fibrillation Congestive heart failure. 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 Hypertension AAA Coronary artery disease Peripheral vascular disease Hypothyroidism - resumed levothyroxine on 03/18/17 history of asthma history of seizures Plan Na decreased to 125 but exam suggests fluid positive state. Will increase Lasix to 60 mg BID, starting this afternoon. Will resume spironolactone. Wait on resuming KDur since K was still elevated at 4.8 but we may need to resume K soon. Renal status stable Rn to call wound team regarding excoriation under left breast. INR is therapeutic; high risk medication in use. Encourage PT/OT/activity as siva. Discussed with Dr. Pittman and with Dr. Ruvalcaba. DVT Prophylaxis: Coumadin Resuscitation Status: Do Not Resuscitate - Physician Narrative Narrative: Date: 03/20/17 Time: 6:15 PM I have independently evaluated and examined this patient. I reviewed the chart, the patient's history, and the PROFESSOR OF SOCIAL WORK/PA's documented findings as above. We discussed and formulated the assessment and plan as above with additions as below: Mr. Hutchinson was seen with his at the bedside. The patient has had difficulty with fluid balance and renal function for a number of months by her report indicating that he was hospitalized in the swing bed at [place] and diuretic dose was adjusted frequently. He was off and on Lasix 60 mg 3 times a day and dose was occasionally increased to 80 mg 3 times a day in conjunction with Zaroxolyn. Weight got down to 128 kg at 1 point while he was at in [place] and has been significantly higher at other times. Patient denies significant dyspnea and was in fact off oxygen while eating although is typically on 3 L supplemental O2. He describes some cough. Edema is increased from baseline per both the patient and his 's history. NAD, alert Respirations are nonlabored but breath sounds are slightly coarse bilaterally with inspiration triggering cough +2 pitting edema bilateral lower extremities with multiple wounds which are dressed Probable CHF with associated hyponatremia-increase Lasix as indicated earlier but may require higher dose or conversion to Bumex. Chest x-ray in a.m. Hospital Course Summary Disclaimer: The visit summary below is not to be considered part of the above Progress Note. Hospital Course: Plan Agree with admission to inpatient rehabilitation unit under the care of Dr. Pittman for significant myopathy and weakness secondary to recent acute hospitalization and illness. Patient does have a very complex past medical history and current chronic comorbidities. Appreciate hospitalist consultation for assistance in medical management. Consultation placed with the wound care team for evaluation and recommendations of ongoing wound care. Left leg squamous cell carcinoma-stable. Patient scheduled to follow with radiation oncology once medically improved. does report that she would like to use her homemade "save" which contains eggplant an essential oil. Consult to pharmacy for ongoing management of INR and Coumadin dosing. Patient has known positive urine culture for VRE. Will forego any treatment. Given chronic colonization of indwelling Sigala catheter Patient does wish to be a full code and this orders written. Appreciate medical consultation, the hospitalist services will continue to follow patient medically manage his existing comorbidities during his stay on IRU unit. At time of discharge his medical care will return to his primary care provider in Dr. Doug Ang in [place] 03/18/17 Give additional Lasix 40 mg PO now; start daily weights. Sounds like he has a hx of flash pulmonary edema; reports he was previously on Lasix TID then was decreased to BID -- monitor fluid status closely as we may need to provide extra diuresis periodically versus adding another dose in the afternoon. Will recheck BMP in am. Change dosing of gabapentin to 300 mg TID and 300 mg at 0200, per 's request. Increase simethicone to home dosing schedule. Resume levothyroxine 50 mcg -- he took this in [place]. Consider wound consultation. Suspect mild leukocytosis is chronic given prednisone use though will recheck CBC in am to document stability. INR is therapeutic. 03/20/17 Na decreased to 125 but exam suggests fluid positive state. Will increase Lasix to 60 mg BID, starting this afternoon. Will resume spironolactone. Wait on resuming KDur since K was still elevated at 4.8 but we may need to resume K soon. Renal status stable Rn to call wound team regarding excoriation under left breast. INR is therapeutic; high risk medication in use. Encourage PT/OT/activity as siva. Discussed with Dr. Pittman and with Dr. Ruvalcaba.
[2017-03-20] MEDS: ACETAMINOPHEN 325 MG TABLET PO PRN (20:27)
[2017-03-20] MEDS: POLYETHYL GLYCOL 3350 17gm PACKET PO SCH (21:59)
[2017-03-20] MEDS: SPIRONOLACTONE 50 MG TABLET PO SCH (22:00)
[2017-03-21] MEDS: GABAPENTIN 300 MG CAPSULE PO SCH ×4 (02:28→21:40)
[2017-03-21] MEDS: ALBUTEROL 2.5mg/0.5ml (0.5%) NEB AEROSOL SCH ×4 (05:24→20:29)
[2017-03-21] MEDS: LEVOTHYROXINE 50 MCG TABLET PO SCH (06:23)
[2017-03-21] MEDS: PANTOPRAZOLE 40 MG TABLET PO SCH (06:23)
[2017-03-21] MEDS: Oxycodone *IR* 5 MG TABLET PO PRN ×4 (06:23→21:43)
[2017-03-21] MEDS: FUROSEMIDE 40 MG TABLET PO SCH ×2 (06:26→15:20)
--- NOTE | 2017-03-21 07:21 | Pharmacy Consult ---
Pharmacy Consult-Warfarin - Laboratory Information 03/16/17 03/17/17 03/18/17 05:38 04:50 04:47 INR 2.18 H 2.04 H 2.00 H 03/19/17 03/20/17 03/21/17 04:07 04:19 04:18 INR 2.05 H 2.09 H 1.81 H - Consult Information WARFARIN THERAPY: 76 y.o. Male with history of A. Fib. and chronic anticoagulation with warfarin. Home dose reported as Warfarin 2mg daily, except on Fridays takes 1mg. goal INR range= 2.0 to 3.0 Date INR dose 03/15 - 2 mg 03/16 2.18 2 mg 03/17 2.04 2 mg 03/18 2.00 2.5 mg 03/19 2.05 2.5 mg 03/20 2.09 2.5 mg 03/21 1.81 Plan 3 mg Will give Warfarin 3 mg p.o. x 1 dose. Pharmacy will monitor and adjust as needed. Thanks for Warfarin Protocol, Baudilio Blackmon, Pharmacist
--- NOTE | 2017-03-21 08:48 | XRay Report ---
Indication: CHF, obstructive sleep apnea PROCEDURE: XR chest 1V: Encounter: Initial Comparison: None FINDINGS: The lungs are clear. There is no abnormal airspace opacity, pleural effusion or pneumothorax identified. The cardiac silhouette is severely enlarged. The pulmonary vasculature and mediastinum are within normal limits. Densities projecting over the midthoracic spine may be external to the patient or represents some type of spinal stimulator leads. IMPRESSION: No pneumonia or congestive failure. Severe enlargement of the cardiac silhouette could be due to cardiomegaly or pericardial effusion. .
[2017-03-21] MEDS ORDERED: PNEUMOCOCCAL VAC ADMIN CHARGE INJ ONE (09:01)
[2017-03-21] MEDS: ACETAMINOPHEN 325 MG TABLET PO PRN ×3 (09:24→21:44)
[2017-03-21] MEDS: MAGNESIUM OXIDE 400 MG TABLET PO SCH (09:25)
[2017-03-21] MEDS: SENNA + DOCUSATE TABLET PO SCH ×2 (09:25→21:39)
[2017-03-21] MEDS: LACTOBACILLUS (15B cfu) CAPSULE PO SCH (09:25)
[2017-03-21] MEDS: SIMETHICONE 80 MG CHEWABLE TABLET PO SCH ×5 (09:26→21:40)
[2017-03-21] MEDS: FERROUS SULFATE 324 MG TABLET PO SCH (09:26)
[2017-03-21] MEDS: ESCITALOPRAM 20 MG TABLET PO SCH (09:26)
[2017-03-21] MEDS: ASCORBIC ACID 500 MG TABLET PO SCH (09:26)
[2017-03-21] MEDS: COENZYME Q-10 200mg TABLET PO SCH (09:27)
[2017-03-21] MEDS: PredniSONE 20 MG TABLET PO SCH (09:27)
[2017-03-21] MEDS: NYSTATIN 500,000 units/5 ml ORAL LIQUID PO SCH ×4 (09:29→21:53)
[2017-03-21] MEDS: SPIRONOLACTONE 50 MG TABLET PO SCH ×2 (09:33→21:39)
[2017-03-21] MEDS ORDERED: WARFARIN 3 MG TABLET PO SCH (12:00)
[2017-03-21] MEDS ORDERED: PNEUMOCOCCAL 13 VACCINE 0.5ml INJECTION IM ONE (12:22)
[2017-03-21] MEDS: CALCIUM CARBONATE Chewable 500mg TABLET PO SCH (12:29)
[2017-03-21] MEDS: CALMOSEPTINE OINTMENT 113gm TUBE TP SCH ×2 (15:20→21:57)
[2017-03-21] MEDS: NYSTATIN OINTMENT 15gm TP SCH ×2 (15:20→21:56)
--- NOTE | 2017-03-21 16:22 | Wound Care Progress Note ---
Wound Center Progress Note: Saw pt today, changed Right shine, Right lateral calf changed drsg and added calcium alginate with mepilex and the whole thomas covered with Kerlex. Also at this time changed the dressing on the left shine for the CA lesion added pultuse from family. Changed the dressing on the positer left calf again using Iodisorb. Again asked pt about using akash boot to float heels and pt refused. Will return on 03/22 to reassess back side of butt and back.
[2017-03-21] MEDS ORDERED: Oxycodone *IR* 5 MG TABLET PO ONE (17:06)
[2017-03-21] MEDS: POLYETHYL GLYCOL 3350 17gm PACKET PO SCH (21:53)
[2017-03-22] MEDS: GABAPENTIN 300 MG CAPSULE PO SCH ×4 (02:06→21:35)
[2017-03-22] MEDS: Oxycodone *IR* 5 MG TABLET PO PRN ×5 (03:14→21:38)
[2017-03-22] MEDS: ALBUTEROL 2.5mg/0.5ml (0.5%) NEB AEROSOL SCH ×4 (05:32→21:45)
[2017-03-22] MEDS: PANTOPRAZOLE 40 MG TABLET PO SCH (07:10)
[2017-03-22] MEDS: LEVOTHYROXINE 50 MCG TABLET PO SCH (07:10)
[2017-03-22] MEDS: FUROSEMIDE 40 MG TABLET PO SCH ×2 (07:10→13:31)
[2017-03-22] MEDS: SENNA + DOCUSATE TABLET PO SCH ×2 (08:18→21:35)
[2017-03-22] MEDS: PredniSONE 20 MG TABLET PO SCH (08:19)
[2017-03-22] MEDS: FERROUS SULFATE 324 MG TABLET PO SCH (08:19)
[2017-03-22] MEDS: SPIRONOLACTONE 50 MG TABLET PO SCH ×2 (08:19→21:36)
[2017-03-22] MEDS: ASCORBIC ACID 500 MG TABLET PO SCH (08:19)
[2017-03-22] MEDS: LACTOBACILLUS (15B cfu) CAPSULE PO SCH (08:20)
[2017-03-22] MEDS: COENZYME Q-10 200mg TABLET PO SCH (08:21)
[2017-03-22] MEDS: MAGNESIUM OXIDE 400 MG TABLET PO SCH (08:21)
[2017-03-22] MEDS: ESCITALOPRAM 20 MG TABLET PO SCH (08:21)
[2017-03-22] MEDS: NYSTATIN 500,000 units/5 ml ORAL LIQUID PO SCH ×4 (08:21→21:37)
[2017-03-22] MEDS: CALMOSEPTINE OINTMENT 113gm TUBE TP SCH ×2 (08:22→15:59)
[2017-03-22] MEDS: NYSTATIN OINTMENT 15gm TP SCH ×3 (08:22→21:27)
--- NOTE | 2017-03-22 08:22 | Pharmacy Consult ---
Pharmacy Consult-Warfarin - Laboratory Information 03/16/17 03/17/17 03/18/17 05:38 04:50 04:47 INR 2.18 H 2.04 H 2.00 H 03/19/17 03/20/17 03/21/17 04:07 04:19 04:18 INR 2.05 H 2.09 H 1.81 H 03/22/17 04:55 INR 1.88 H - Consult Information COUMADIN CONSULT (Recurring): WARFARIN THERAPY: 76 y.o. Male with history of A. Fib. and chronic anticoagulation with warfarin. Home dose reported as Warfarin 2mg daily, except on Fridays takes 1mg. goal INR range= 2.0 to 3.0 Date INR dose 03/15 - 2 mg 03/16 2.18 2 mg 03/17 2.04 2 mg 03/18 2.00 2.5 mg 03/19 2.05 2.5 mg 03/20 2.09 2.5 mg 03/21 1.81 3 mg 03/22 1.88 plan 3mg Will give Warfarin 3 mg po x 1 dose. Pharmacy will monitor and adjust as needed. Thanks for Warfarin Protocol, Thank you.
[2017-03-22] MEDS: POLYETHYL GLYCOL 3350 17gm PACKET PO PRN (08:31)
[2017-03-22] MEDS ORDERED: PNEUMOCOCCAL VAC ADMIN CHARGE INJ ONE (08:59)
[2017-03-22] MEDS: SIMETHICONE 80 MG CHEWABLE TABLET PO SCH ×4 (10:52→21:38)
--- NOTE | 2017-03-22 11:33 | IRU Progress Note ---
- Subjective/Serverity of Illness Date: 03/22/17 Mr. Hutchinson was evaluated in his room with therapist and nurse present. He reports that he is having quite a bit of discomfort. He specifically states he has pains in the skin lesions during the time of dressing changes. In addition he has pain in his hips and knees when he tries to stand. He does have history of rheumatoid arthritis. For this reason, we did increase his oxycodone to 10 mg every 4 hours as needed. He states he would like more pain medication. I told him that we just increased this and want to give this a chance. In addition he does have neuropathic pain and is on gabapentin in this regard. He does have easy fatigability and requires multiple rest breaks during therapy. He does have a cough with "clear" sputum. Brief therapy update: Lower body dressing is with total assistance. He is able to transfer with wheelchair with moderate assistance and assists in taking 1 or 2 steps. Therapist's note that he does require multiple rest breaks during therapy. Was able to stand at her low bars with maximum assistance but was able to stand only less than 30 seconds. Able to walk 3 feet with total assistance. Does not follow hand placement commands well. Update on medical problems were actively monitoring and managing as follows: 1. Disuse myopathy: Remains with severe deconditioning. Team meeting this admission to provide further input. 2. Acute on chronic diastolic heart failure with preserved ejection fraction: At the present time he is on Lasix 60 mg twice daily plus Zaroxolyn. I do not hear any crackles but do hear wheezes in his lungs. 3. Acute on chronic hypoxemic respiratory failure with requirement for oxygen supplementation: Remains on room air much of the time. 4. Recent influenza A infection: He is on breathing treatments with benefit. Still has some wheezing. 5. Chronic kidney disease stage III: Creatinine stable. 6. Hyponatremia, multifactorial: Sodium has improved to 132. 7. Chronic indwelling Sigala catheter secondary to chronic urinary urgency, frequency and incontinence with colonization but without active infection (no fever and no other symptoms): Continues to be without symptoms and without fever. 8. Chronic leg wounds/ulcerations: Wound care following wounds. Reviewed wound care nurse's notes. Dressing changes noted. 9. Atrial fibrillation: INR is subtherapeutic. Being monitored and treated by pharmacy. Does have episodes of rapid ventricular response which seem to interfere with his ability to tolerate activity. 10. Multiple skin lesions including squamous cell carcinoma of left thomas, multiple apparent basal cell lesions and multiple decubitus lesions including both heels, low midline of his back. Wound care monitoring. I did not remove the dressings today. Exam Vital Signs: Temperature 97.7 F 03/22/17 08:00 Pulse Rate 65 03/22/17 08:00 Respiratory Rate 22 03/22/17 11:10 Blood Pressure 116/59 03/22/17 08:00 Pulse Oximetry 99 03/22/17 11:10 Height/Weight/BMI: Height 1.7 m Weight 128 kg Body Mass Index 45.0 - Constitutional Present: mild distress, well nourished, well developed, morbidly obese, cooperative - Routine HEENT Exam Head: Present: normocephalic, atraumatic Eye: Present: EOMI ENT: Present: mucous membranes moist - Routine Neck Exam Present: supple - Routine Respiratory Exam Present: dyspnea, decreased breath sounds, wheezes. Absent: respiratory distress, rhonchi, crackles - Routine Cardiovascular Exam Present: S1, S2, irregularly irregular. Absent: murmur - Routine Abdominal Exam Present: soft, normoactive bowel sounds, non distended. Absent: tenderness - Routine Extremities Exam Present: no edema, normal capillary refill - Routine Skin Exam Present: dry, warm, lesions, wounds Comments: Multiple skin lesions consistent with various stages of basal cell carcinoma. Large right thomas lesion consistent with his known squamous cell biopsy. Multiple other skin wounds being treated appropriate. - Routine Neurological Exam Present: alert, oriented X3, CN II-XII intact - Routine Psychiatric Exam Present: normal affect, cooperative, anxious Results IRU - Labs Labs: Have reviewed other providers notes as well as laboratory findings and vital signs. IRU A/P (1) Myopathy Current visit: Yes Status: Acute Continues to demonstrate severe disuse myopathy. He is participating with therapy. Further information will be obtained following team meeting today. (2) Influenza A Current visit: Yes Status: Resolved (3) Rheumatoid arthritis Qualifiers: Rheumatoid arthritis location: multiple sites Rheumatoid factor presence: unspecified presence Qualified Code(s): M06.9 - Rheumatoid arthritis, unspecified Current visit: Yes Status: Chronic Complains of pain in knees and hips with standing. He is on potent doses of oxycodone as well as gabapentin. (4) Atrial fibrillation, chronic Current visit: Yes Status: Chronic Has episodes of rapid ventricular response which interfere with his exercise tolerance. (5) (HFpEF) heart failure with preserved ejection fraction Current visit: Yes Status: Chronic Remains on multiple doses of diuretics. (6) CKD (chronic kidney disease) stage 3, GFR 30-59 ml/min Current visit: Yes Status: Chronic (7) Squamous cell skin cancer Current visit: Yes Status: Chronic (8) Chronic indwelling Siglaa catheter Current visit: Yes Status: Chronic (9) Acute on chronic respiratory failure with hypoxemia Current visit: Yes Status: Acute (10) Acute bronchospasm Current visit: Yes Status: Acute (11) SONYA (obstructive sleep apnea) Current visit: Yes Status: Chronic DVT Prophylaxis: Coumadin Resuscitation Status: Do Not Resuscitate - Course Hospital Course: Pedro Pittman MD: 03/16/17 12:11 Multiple medical problems as outlined. Severe weakness noted. Just getting started with therapies. 03/19/17 12:04 Patient is cooperative and participates with therapy although progress is quite slow. Continues to have expiratory wheezes. He is afebrile. Numerous skin lesions identified. would like to have lidocaine used for dressing removal. I will discuss with wound care. 03/20/17 10:44 Multiple skin lesions will require continued meticulous nursing management. Medically he seems stable. Lungs are clear. INR is therapeutic. He is participating with therapy. 03/22/17 11:35 Slow progression with therapy. Multiple skin lesions noted and being monitored by nursing including wound care nurse. INR subtherapeutic. - Interventions to Obtain Goals PT Treatment Plan: Balance/Proprioception, Functional Activities, Gait Training , Patient/Family Education, Therapeutic Exercise OT Treatment Plan: ADL (Basic Care), Balance Training, Pt./Family Education, Ther. Exercise for ADL Goals Progress/Modifications: Time spent with patient and on floor reviewing data and documentin min Barriers to dismissal: Pain, endurance, weakness, multiple skin lesions Medical decision-making: I again reassessed Mr. Hutchinson's overall medical status. He does have underlying heart failure with preserved ejection fraction. He is on multiple doses of diuretics. He requires frequent rest breaks although at the present time there is no evidence of new cardiac decompensation. His multiple skin wounds and skin lesions require significant and meticulous nursing investments. He does complain of increased pain. We increased his oxycodone yesterday but I'm reluctant to increase it further. We will see how he does for a few days in this regard. He is participating with therapy but progress is slow. Team meeting this noon for further clarification of anticipated benefit. Medically he seems stable and can tolerate the therapy. However, he is extremely complex from a medical standpoint.
[2017-03-22] MEDS ORDERED: WARFARIN 3 MG TABLET PO SCH (12:00)
[2017-03-22] MEDS ORDERED: Bisacodyl EC TAB 5 MG TABLET PO PRN (13:18)
--- NOTE | 2017-03-22 13:27 | IRU Team Meeting ---
IRU Team Meeting - Nursing Bladder Assistive Devices Utilized:: Catheter Bladder Management Level of Assist: Total Assistance Bladder Frequency of Accidents: No accidents Bowel Assistive Devices Utilized:: Medication, Bedside Commode Bowel Management Level of Assist: Modified Independent Bowel Frequency of Accidents: No accidents Vital Signs: Vital Signs - 24 hr 03/21/17 15:10 03/21/17 16:00 03/21/17 20:20 Temperature 98.0 F Pulse Rate 83 Respiratory Rate 18 16 18 Blood Pressure 123/58 Pulse Oximetry 95 93 03/22/17 00:00 03/22/17 05:32 03/22/17 08:00 Temperature 98.4 F 97.7 F Pulse Rate 77 65 Respiratory Rate 19 18 20 Blood Pressure 127/69 116/59 Pulse Oximetry 95 96 95 03/22/17 11:10 Temperature Pulse Rate Respiratory Rate 22 Blood Pressure Pulse Oximetry 99 Current Medications: Acetaminophen (Tylenol) 650 mg PO Q6H PRN PRN Reason: Pain Last Admin: 03/21/17 21:44 Dose: 650 mg Albuterol Sulfate (Proventil Neb (0.5%)) 2.5 mg AEROSOL RTQID [facility] Last Admin: 03/22/17 11:00 Dose: 2.5 mg Ascorbic Acid (Vitamin C) 500 mg PO DAILY [facility] Last Admin: 03/22/17 08:19 Dose: 500 mg Bisacodyl (Dulcolax) 10 mg PO DAILY PRN PRN Reason: Constipation Calamine/Phenol (Risamine Oint) 1 applic TP TID [facility] Last Admin: 03/22/17 08:22 Dose: 1 applic Calcium Carbonate (Tums) 500 mg PO NOON [facility] Last Admin: 03/21/17 12:29 Dose: 500 mg Cholecalciferol (Vit. D-3) 1,000 unit PO DAILY [facility] Last Admin: 03/22/17 08:19 Dose: 1,000 unit Coenzyme Q10 (Co Q-10) 200 mg PO DAILY [facility] Last Admin: 03/22/17 08:21 Dose: 200 mg Docusate Sodium (Colace) 100 mg PO DAILY [facility] Escitalopram Oxalate (Lexapro) 20 mg PO DAILY [facility] Last Admin: 03/22/17 08:21 Dose: 20 mg Ferrous Sulfate (Feosol) 324 mg PO WB [facility] Last Admin: 03/22/17 08:19 Dose: 324 mg Furosemide (Lasix) 60 mg PO 07,14 [facility] Last Admin: 03/22/17 07:10 Dose: 60 mg Gabapentin (Neurontin) 300 mg PO TID [facility] Last Admin: 03/22/17 08:18 Dose: 300 mg Gabapentin (Neurontin) 300 mg PO DAILY@0200 [facility] Last Admin: 03/22/17 02:06 Dose: 300 mg Guaifenesin (Mucinex) 400 mg PO QID [facility] Lactobacillus Acidophilus (Culturelle) 2 cap PO WB [facility] Last Admin: 03/22/17 08:20 Dose: 2 cap Levothyroxine Sodium (Synthroid) 50 mcg PO ACB [facility] Last Admin: 03/22/17 07:10 Dose: 50 mcg Magnesium Oxide (Magox) 400 mg PO DAILY [facility] Last Admin: 03/22/17 08:21 Dose: 400 mg Metolazone (Zaroxolyn) 5 mg PO DAILY [facility] Last Admin: 03/22/17 08:19 Dose: 5 mg Metoprolol Tartrate (Lopressor) 25 mg PO BIDWM [facility] Last Admin: 03/22/17 08:21 Dose: 25 mg Nystatin (Mycostatin) 5 ml PO QID [facility] Last Admin: 03/22/17 08:21 Dose: 5 ml Nystatin (Mycostatin) 1 applic TP TID [facility] Last Admin: 03/22/17 08:22 Dose: 1 applic Oxycodone HCl (Roxicodone *Ir*) 10 mg PO Q4H PRN PRN Reason: Pain Last Admin: 03/22/17 11:35 Dose: 10 mg Pantoprazole Sodium (Protonix Tab) 40 mg PO ACB [facility] Last Admin: 03/22/17 07:10 Dose: 40 mg Polyethylene Glycol (Miralax) 17 gm PO HS [facility] Last Admin: 03/21/17 21:53 Dose: 17 gm Polyethylene Glycol (Miralax) 17 gm PO DAILY PRN Last Admin: 03/22/17 08:31 Dose: 17 gm Potassium Chloride (K-Dur 20 Meq Tablet) 20 meq PO BIDWM [facility] Last Admin: 03/19/17 08:14 Dose: 20 meq Prednisone (Deltasone) 20 mg PO WB [facility] Last Admin: 03/22/17 08:19 Dose: 20 mg Senna/Docusate Sodium (Senna Plus Tablet) 2 tab PO BID [facility] Last Admin: 03/22/17 08:18 Dose: 2 tab Simethicone (Mylicon) 80 mg PO HS [facility] Last Admin: 03/22/17 10:52 Dose: 80 mg Sodium Chloride (Deep Sea Nasal Moisturizing [place]) 1 spray EA NOSTRIL PRN PRN PRN Reason: Congestion Spironolactone (Aldactone) 50 mg PO BID [facility] Last Admin: 03/22/17 08:19 Dose: 50 mg Warfarin Sodium (Coumadin Protocol) 0 [facility] NOTE SHIKHA Current Medical Issues: Multiple skin lesions and ulcers, heart failure with preserved ejection fraction , disuse myopathy, hyponatremia, acute on chronic hypoxemic respiratory failure , obstructive sleep apnea, rheumatoid arthritis Comments: I certify that I personally led the interdisciplinary team meeting and agree with comments, barriers and goals indicated. Team meeting was held in the patient's room with the patient and the following family members present: patient's Barbara. Mr. Hutchinson is not utilizing his CPAP with his own mask. Continues to have quite a bit of pain with dressing changes although we are allowing 50% lidocaine per patient and 's request for dressing changes. In addition, he experiences pain in the hips and knees. He states his knees are actually doing a bit better. He is constipated and would like additional laxative. He does have occasional episodes of atrial fibrillation with rapid ventricular response. He remains on warfarin with INR monitored and managed by the pharmacy. His sodium is improved at 132. He remains on diuretics including Lasix twice daily plus metolazone. His weight is stable. Continues to have a cough with postnasal drainage/thick sputum. - Physical Therapy Bed, Chair, Wheelchair Transfer Assist: Total Assistance, 2 or More Person Assist Ambulation Ability: Total Assistance, 1 Person Assist Ambulation Distance: 3 Stair Climbing Ability: Patient Unsafe/Unable Car Transfer Ability: Patient Unsafe/Unable Comments: Patient is participating with therapy although it is limited due to his poor endurance and need for frequent rest breaks. He is able to ambulate 3 feet with total assistance. He becomes tearful when discussing goals as he would like to get back home and be stronger. - Occupational Therapy Eating Ability: Stand By Assist/Supervision Grooming Ability: Minimal Assistance Bathing Ability: Maximal Assistance, 2 or More Person Assist Upper Body Dressing Ability: Moderate Assistance Lower Body Dressing Ability: Total Assistance Tub Transfer Assist: Patient Unsafe/Unable Toileting Assist: Total Assistance Toilet Transfer Assist: Total Assistance, 2 or More Person Assist Comments: He is making slow progress toward occupational therapy goals. He requires multiple rest breaks due to fatigue. Continues to require total assistance for transfers for safety. Hand placement is not accurate. - Goals Physical Therapy Goals: 03/22/17 Goals: 1.) Walk 5 feet with walker. 2.) Moderate assist with sit to stand transfer. 3.) Proper hand placement with stand to sit transfer 100% of the time. Occupational Therapy Goals: OT goals 03/22/17: 1.) Pt. to demonstrate transfer to [facility] [place] with moderate assist. 2.) Pt. to perform lower body dressing with moderate assist. 3.) Pt. to perform upper body dressing with set-up assist. - Barriers to Discharge Barriers to Attaining Goals: Weakness, Endurance, Pain Control, Medical Limitation (dyspnea, fatigue) - Care Plan Anticipated Length of Stay (days): 10 Anticipated Length of Stay: Reassess in one week Anticipated DC Destination: Home, Self Care, Home Health Service I have led this team conference and agree with the plan. Interventions/Goals: Patient is cooperative with therapy and attempts to participate. He has very poor endurance. He is cooperative. Reassess in one week.
[2017-03-22] MEDS: CALCIUM CARBONATE Chewable 500mg TABLET PO SCH (13:30)
[2017-03-22] MEDS: DOCUSATE SODIUM 100 MG CAPSULE PO SCH (13:31)
[2017-03-22] MEDS: GUAIFENESIN 400MG TABLET PO SCH ×2 (18:00→21:35)
[2017-03-22] MEDS: POLYETHYL GLYCOL 3350 17gm PACKET PO SCH (21:37)
[2017-03-23] MEDS: GABAPENTIN 300 MG CAPSULE PO SCH ×4 (02:06→23:20)
[2017-03-23] MEDS: LEVOTHYROXINE 50 MCG TABLET PO SCH (06:36)
[2017-03-23] MEDS: FUROSEMIDE 40 MG TABLET PO SCH ×2 (06:36→13:11)
[2017-03-23] MEDS: PANTOPRAZOLE 40 MG TABLET PO SCH (06:36)
[2017-03-23] MEDS: ALBUTEROL 2.5mg/0.5ml (0.5%) NEB AEROSOL SCH ×4 (07:06→21:50)
[2017-03-23] MEDS: Oxycodone *IR* 5 MG TABLET PO PRN ×4 (07:24→23:19)
--- NOTE | 2017-03-23 07:39 | Pharmacy Consult ---
Pharmacy Consult-Warfarin - Laboratory Information 03/16/17 03/17/17 03/18/17 05:38 04:50 04:47 INR 2.18 H 2.04 H 2.00 H 03/19/17 03/20/17 03/21/17 04:07 04:19 04:18 INR 2.05 H 2.09 H 1.81 H 03/22/17 03/23/17 04:55 04:45 INR 1.88 H 2.09 H - Consult Information We will give 3 mg of warfarin today at noon. INR in low therapeutic range. Thanks
[2017-03-23] MEDS: NYSTATIN 500,000 units/5 ml ORAL LIQUID PO SCH ×4 (09:21→23:12)
[2017-03-23] MEDS: COENZYME Q-10 200mg TABLET PO SCH (09:22)
[2017-03-23] MEDS: PredniSONE 20 MG TABLET PO SCH (09:23)
[2017-03-23] MEDS: SPIRONOLACTONE 50 MG TABLET PO SCH ×2 (09:23→23:15)
[2017-03-23] MEDS: MAGNESIUM OXIDE 400 MG TABLET PO SCH (09:24)
[2017-03-23] MEDS: LACTOBACILLUS (15B cfu) CAPSULE PO SCH (09:24)
[2017-03-23] MEDS: ASCORBIC ACID 500 MG TABLET PO SCH (09:25)
[2017-03-23] MEDS: SIMETHICONE 80 MG CHEWABLE TABLET PO SCH ×4 (09:25→23:13)
[2017-03-23] MEDS: SENNA + DOCUSATE TABLET PO SCH ×2 (09:25→23:12)
[2017-03-23] MEDS: ESCITALOPRAM 20 MG TABLET PO SCH (09:26)
[2017-03-23] MEDS: DOCUSATE SODIUM 100 MG CAPSULE PO SCH (09:26)
[2017-03-23] MEDS: FERROUS SULFATE 324 MG TABLET PO SCH (09:27)
[2017-03-23] MEDS: GUAIFENESIN 400MG TABLET PO SCH ×4 (09:31→23:15)
[2017-03-23] MEDS: NYSTATIN OINTMENT 15gm TP SCH ×3 (09:31→23:15)
--- NOTE | 2017-03-23 11:41 | IRU Progress Note ---
- Subjective/Serverity of Illness Date: 03/23/17 Mr. Hutchinson was interviewed and examined in his room with therapists and the patient's present. Reports he continues to have a problem with pain which he rates at 7 out of 10. Difficult to determine if he is referring to his knees , hips or when they do dressing changes. All of these hurt and bother him. Gabapentin had been increased previously. He denies any nausea or vomiting. Denies any chest pain. Does have chronic dyspnea. Brief therapy update: He was assessed yesterday and today by speech therapy. There is some suggestion of coughing when he is lying down and swallowing water. However if he is sitting totally upright he does not appear to have any evidence of aspiration. Patient was advised to swallow only while sitting totally upright. If he lies down, he can have water but that is all. He was co- treated by physical therapy and occupational therapy. He requires total assistance for almost all activities. Progress is slow. Able to ambulate about 3 feet. Patient is very concerned about using one of our walkers because they seem to be "flimsy." His has brought in his own walker which is a 4 wheeled walker. In addition, the patient wants to use parallel bars for strengthening. This is all discussed with therapy as well. He states that he still has not had a good bowel movement. Medications are reviewed. He is on milk of magnesia daily as needed as well as MiraLAX on a daily basis. His chronic narcotic usage is no doubt a factor here as well. Update on medical issues were actively managing and monitoring as follows: 1. Disuse myopathy: Patient is cooperative with therapy. Continues to demonstrate severe muscle weakness in the proximal musculature. 2. Acute on chronic diastolic heart failure with preserved ejection fraction: Lung exam demonstrates a few extra toward wheezes versus rhonchi. Much of this sounds like it is in the large airways. Remains on diuretics. 3. Acute on chronic hypoxemic respiratory failure with requirement for oxygen supplementation: He has been on room air with last use of supplemental oxygen on March 20. 4. Recent influenza A infection: Continues to require inhaled bronchodilators. Occasional expiratory wheezes noted. 5. Chronic kidney disease stage III: Creatinine stable. 6. Hyponatremia, multifactorial: Most recent sodium 132. 7. Chronic indwelling Sigala catheter secondary to chronic urinary urgency, frequency and incontinence with colonization but without active infection (no fever and no other symptoms): Catheter remains in place without evidence of active infection. 8. Chronic leg wounds/ulcerations: Wound care continues to follow the wounds. There is some indication that he may need some debridement by word of mouth. 9. Atrial fibrillation: INR is now therapeutic. No evidence of active bleeding. 10. Multiple skin lesions including squamous cell carcinoma of left thomas, multiple apparent basal cell lesions and multiple decubitus lesions including both heels, low midline of his back. Wound care monitoring. I did not remove the dressings today. Exam Vital Signs: Temperature 98.1 F 03/23/17 08:00 Pulse Rate 73 03/23/17 08:00 Respiratory Rate 18 03/23/17 08:00 Blood Pressure 116/53 03/23/17 08:00 Pulse Oximetry 96 03/23/17 08:00 Height/Weight/BMI: Height 1.7 m Weight 128 kg Body Mass Index 45.0 - Constitutional Present: mild distress, well nourished, well developed, morbidly obese, cooperative - Routine HEENT Exam Head: Present: normocephalic Eye: Present: EOMI ENT: Present: mucous membranes moist Comments: Multiple skin lesions noted on head and neck area. - Routine Neck Exam Present: supple - Routine Respiratory Exam Present: dyspnea, decreased breath sounds, rhonchi (some suggestion of rhonchi noted implying large airway mucus.), wheezes (few expiratory wheezes.), distant breath sounds - Routine Cardiovascular Exam Present: S1, S2, murmur, irregularly irregular - Routine Abdominal Exam Present: soft, normoactive bowel sounds, non distended. Absent: tenderness - Routine Extremities Exam Present: no edema - Routine Skin Exam Present: dry, warm Comments: Multiple skin wounds and lesions noted. I did not remove the dressings today. - Routine Neurological Exam Present: alert, oriented X3, CN II-XII intact - Routine Psychiatric Exam Present: normal affect, cooperative, depressed (yesterday he appeared to be tearful when we presented him with goals. Turns out he thought we were chastising him for not meeting them. In truth they were goals for the coming week. This was explained to him today.), anxious. Absent: good insight, good judgment Results IRU - Labs Labs: Reviewed recent labs including INR which is therapeutic. 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 He is cooperative with therapy. He is being co-treated most the time. (2) Influenza A Current visit: Yes Status: Resolved (3) Rheumatoid arthritis Qualifiers: Rheumatoid arthritis location: multiple sites Rheumatoid factor presence: unspecified presence Qualified Code(s): M06.9 - Rheumatoid arthritis, unspecified Current visit: Yes Status: Chronic (4) Atrial fibrillation, chronic Current visit: Yes Status: Chronic INR is therapeutic. (5) (HFpEF) heart failure with preserved ejection fraction Current visit: Yes Status: Chronic Remains on diuretics. (6) CKD (chronic kidney disease) stage 3, GFR 30-59 ml/min Current visit: Yes Status: Chronic (7) Squamous cell skin cancer Current visit: Yes Status: Chronic (8) Chronic indwelling Sigala catheter Current visit: Yes Status: Chronic (9) Acute on chronic respiratory failure with hypoxemia Current visit: Yes Status: Acute Has been on room air for the most part. Continues to have dyspnea with activity likely related to underlying COPD as well as recent bronchospasm with his influenza. (10) Acute bronchospasm Current visit: Yes Status: Acute (11) SONYA (obstructive sleep apnea) Current visit: Yes Status: Chronic (12) Slow transit constipation Current visit: Yes Status: Acute Patient remains on daily milk of magnesia as needed as well as daily MiraLAX. DVT Prophylaxis: Coumadin Resuscitation Status: Do Not Resuscitate - Course Hospital Course: Pedro Pittman MD: 03/16/17 12:11 Multiple medical problems as outlined. Severe weakness noted. Just getting started with therapies. 03/19/17 12:04 Patient is cooperative and participates with therapy although progress is quite slow. Continues to have expiratory wheezes. He is afebrile. Numerous skin lesions identified. would like to have lidocaine used for dressing removal. I will discuss with wound care. 03/20/17 10:44 Multiple skin lesions will require continued meticulous nursing management. Medically he seems stable. Lungs are clear. INR is therapeutic. He is participating with therapy. 03/22/17 11:35 Slow progression with therapy. Multiple skin lesions noted and being monitored by nursing including wound care nurse. INR subtherapeutic. 03/23/17 11:46 Slow progress with therapy. INR therapeutic. Complains of constipation. - Interventions to Obtain Goals PT Treatment Plan: Balance/Proprioception, Functional Activities, Gait Training , Patient/Family Education, Therapeutic Exercise OT Treatment Plan: ADL (Basic Care), Balance Training, Pt./Family Education, Ther. Exercise for ADL Goals Progress/Modifications: Time spent with patient and on floor reviewing data and documentin min Barriers to dismissal: Weakness, endurance, dyspnea, multiple skin wounds Medical decision-making: Patient is continued to be very complex medically. He has heart failure with preserved ejection fraction. Does not have edema at the present time. He continues to have a few wheezes and even some rhonchi. He was assessed by speech therapy and it is recommended that he eat and drink in fully upright position. Does not appear to have an aspiration risk if he does that. He remains afebrile. He is getting breathing treatments. He remains on oral steroids. He has easy fatigability and is worried about his balance and strength. He is cooperative with therapy and progress is slow. I have reassessed him from a medical standpoint and feel as though it is safe to continue therapy at this time as he is tolerating it adequately. He has multiple medical issues which we are monitoring along with his multiple wounds.
[2017-03-23] MEDS ORDERED: WARFARIN 3 MG TABLET PO SCH (12:00)
[2017-03-23] MEDS: CALCIUM CARBONATE Chewable 500mg TABLET PO SCH (13:15)
--- NOTE | 2017-03-23 15:43 | Wound Care Progress Note ---
Wound Center Progress Note: In to see pt this afternoon. At this time all drsgings changed. No acute wound changes, no changes in treatment plan at this time. Will consult Dr Alvarado on Sunday for care of right postieor calf X 2, Right thomas, and Left post calf X 1. At this time reassed heels which are stable w/o redness or bogginess. Mepliex placed for continued protection. Pt again refused [place] boots, Encouraged to move pillows around under calfs when floating heels so pt doesn't obtain new pressure injuries. Again overall Pt's skin is very friable and tears easily.
--- NOTE | 2017-03-23 15:53 | Progress Note ---
- Date 03/23/17 Subjective: Jasper is seen in follow-up this afternoon. His is at the bedside and she has concerns about furthering edema, and notes that his weight is up approximately 2 kilograms over the last several days. She also reports that he is constipated despite best efforts with stool softeners. Patient is breathing on room air without evidence of distress. He denies having chest pain, shortness of breath. States "I don't know" when asked if he is having abdominal pain. Appetite has been good. Urine output has been good, 1200 ML output overnight, 500 ML output today. Objective Vital signs: Temperature 98.1 F 03/23/17 08:00 Pulse Rate 73 03/23/17 08:00 Respiratory Rate 18 03/23/17 08:00 Blood Pressure 116/53 03/23/17 08:00 Pulse Oximetry 96 03/23/17 08:00 Height/Weight/BMI: Height 1.7 m Weight 129 kg Body Mass Index 45.0 - Constitutional Present: well nourished, well developed - Routine HEENT Exam Eye: Present: EOMI ENT: Present: mucous membranes moist, dentition normal - Routine Respiratory Exam Present: CTA bilaterally. Absent: wheezes - Routine Cardiovascular Exam Present: RRR, S1, S2. Absent: murmur - Routine Abdominal Exam Present: soft, normoactive bowel sounds, non distended. Absent: tenderness - Routine Extremities Exam Present: edema, normal capillary refill Comments: Noted to have 1+ edema in upper legs - Routine Skin Exam Present: intact, dry, warm - Routine Neurological Exam Present: alert, oriented X3, CN II-XII intact - Routine Lymphatic Exam Lymphatic: Absent: adenopathy - Routine Psychiatric Exam Present: normal affect, cooperative Results - Labs CBC & Chem 7: 03/19/17 04:07 03/22/17 08:11 Assessment and Plan (1) Myopathy Current visit: Yes Status: Acute (2) Squamous cell skin cancer Current visit: Yes Status: Chronic (3) Acute on chronic respiratory failure with hypoxemia Current visit: Yes Status: Acute Assessment and Plan: Impression Generalized Myopathy Skin lesions consistent with basal cell and squamous cell carcinoma Recent influenza A with continued hypoxia. Hyponatremia, chronic Intertriginous dermatitis Chronic atrial fibrillation Congestive heart failure. 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 Hypertension AAA Coronary artery disease Peripheral vascular disease Hypothyroidism - resumed levothyroxine on 03/18/17 history of asthma history of seizures Plan Given increased edema and increase in weight. We will give an additional 40 milligrams of Lasix both this evening and tomorrow evening. Recheck BMP tomorrow morning to follow electrolytes and renal function. Patient may need additional testing supplementation. Discussed importance of bowel motivation. Continue on current regimen Oral Dulcolax, Colace, senna plus, MiraLAX, milk of magnesia. Did also add Dulcolax suppository and encouraged nursing to try a brown cow. Recommend using suppository. By this evening if no bowel movements. This will also help with fluid retention and edema. Otherwise doing well. - Physician Narrative Narrative: Date: 03/23/17 Time: 1548 Hospital Course Summary Disclaimer: The visit summary below is not to be considered part of the above Progress Note. Hospital Course: Plan Agree with admission to inpatient rehabilitation unit under the care of Dr. Pittman for significant myopathy and weakness secondary to recent acute hospitalization and illness. Patient does have a very complex past medical history and current chronic comorbidities. Appreciate hospitalist consultation for assistance in medical management. Consultation placed with the wound care team for evaluation and recommendations of ongoing wound care. Left leg squamous cell carcinoma-stable. Patient scheduled to follow with radiation oncology once medically improved. does report that she would like to use her homemade "save" which contains eggplant an essential oil. Consult to pharmacy for ongoing management of INR and Coumadin dosing. Patient has known positive urine culture for VRE. Will forego any treatment. Given chronic colonization of indwelling Sigala catheter Patient does wish to be a full code and this orders written. Appreciate medical consultation, the hospitalist services will continue to follow patient medically manage his existing comorbidities during his stay on IRU unit. At time of discharge his medical care will return to his primary care provider in Dr. Doug Ang in [place] 03/18/17 Give additional Lasix 40 mg PO now; start daily weights. Sounds like he has a hx of flash pulmonary edema; reports he was previously on Lasix TID then was decreased to BID -- monitor fluid status closely as we may need to provide extra diuresis periodically versus adding another dose in the afternoon. Will recheck BMP in am. Change dosing of gabapentin to 300 mg TID and 300 mg at 0200, per 's request. Increase simethicone to home dosing schedule. Resume levothyroxine 50 mcg -- he took this in [place]. Consider wound consultation. Suspect mild leukocytosis is chronic given prednisone use though will recheck CBC in am to document stability. INR is therapeutic. 03/20/17 Na decreased to 125 but exam suggests fluid positive state. Will increase Lasix to 60 mg BID, starting this afternoon. Will resume spironolactone. Wait on resuming KDur since K was still elevated at 4.8 but we may need to resume K soon. Renal status stable Rn to call wound team regarding excoriation under left breast. INR is therapeutic; high risk medication in use. Encourage PT/OT/activity as siva. Discussed with Dr. Pittman and with Dr. Ruvalcaba. 2/2 Given increased edema and increase in weight. We will give an additional 40 milligrams of Lasix both this evening and tomorrow evening. Recheck BMP tomorrow morning to follow electrolytes and renal function. Patient may need additional testing supplementation. Discussed importance of bowel motivation. Continue on current regimen Oral Dulcolax, Colace, senna plus, MiraLAX, milk of magnesia. Did also add Dulcolax suppository and encouraged nursing to try a brown cow. Recommend using suppository. By this evening if no bowel movements. This will also help with fluid retention and edema. Otherwise doing well.
[2017-03-23] MEDS: ACETAMINOPHEN 325 MG TABLET PO PRN ×2 (18:24→23:14)
[2017-03-23] MEDS ORDERED: FUROSEMIDE 40 MG TABLET PO ONE (20:00)
[2017-03-23] MEDS: POLYETHYL GLYCOL 3350 17gm PACKET PO SCH (23:15)
[2017-03-24] MEDS: GABAPENTIN 300 MG CAPSULE PO SCH ×5 (03:15→21:38)
[2017-03-24] MEDS: ALBUTEROL 2.5mg/0.5ml (0.5%) NEB AEROSOL SCH ×4 (05:35→19:18)
[2017-03-24] MEDS: LEVOTHYROXINE 50 MCG TABLET PO SCH (07:14)
[2017-03-24] MEDS: PANTOPRAZOLE 40 MG TABLET PO SCH (07:14)
[2017-03-24] MEDS: Oxycodone *IR* 5 MG TABLET PO PRN ×4 (07:14→21:38)
--- NOTE | 2017-03-24 09:36 | Pharmacy Consult ---
Pharmacy Consult-Warfarin - Laboratory Information 03/16/17 03/17/17 03/18/17 05:38 04:50 04:47 INR 2.18 H 2.04 H 2.00 H 03/19/17 03/20/17 03/21/17 04:07 04:19 04:18 INR 2.05 H 2.09 H 1.81 H 03/22/17 03/23/17 03/24/17 04:55 04:45 05:34 INR 1.88 H 2.09 H 2.35 H - Consult Information Warfarin 3mg po ordered at noon today. Will continue to monitor. Thank you.
[2017-03-24] MEDS: NYSTATIN 500,000 units/5 ml ORAL LIQUID PO SCH ×4 (09:51→21:38)
[2017-03-24] MEDS: GUAIFENESIN 400MG TABLET PO SCH ×4 (09:51→21:38)
[2017-03-24] MEDS: COENZYME Q-10 200mg TABLET PO SCH (09:52)
[2017-03-24] MEDS: ESCITALOPRAM 20 MG TABLET PO SCH (09:53)
[2017-03-24] MEDS: MAGNESIUM OXIDE 400 MG TABLET PO SCH (09:53)
[2017-03-24] MEDS: LACTOBACILLUS (15B cfu) CAPSULE PO SCH (09:53)
[2017-03-24] MEDS: SENNA + DOCUSATE TABLET PO SCH ×2 (09:54→21:39)
[2017-03-24] MEDS: PredniSONE 20 MG TABLET PO SCH (09:54)
[2017-03-24] MEDS: SIMETHICONE 80 MG CHEWABLE TABLET PO SCH ×4 (09:54→21:38)
[2017-03-24] MEDS: ASCORBIC ACID 500 MG TABLET PO SCH (09:55)
[2017-03-24] MEDS: DOCUSATE SODIUM 100 MG CAPSULE PO SCH (09:55)
[2017-03-24] MEDS: FUROSEMIDE 40 MG TABLET PO SCH ×2 (09:56→14:23)
[2017-03-24] MEDS: FERROUS SULFATE 324 MG TABLET PO SCH (09:56)
[2017-03-24] MEDS: SPIRONOLACTONE 50 MG TABLET PO SCH ×2 (09:56→21:38)
[2017-03-24] MEDS: NYSTATIN OINTMENT 15gm TP SCH ×3 (11:39→21:39)
[2017-03-24] MEDS ORDERED: WARFARIN 3 MG TABLET PO SCH (12:00)
[2017-03-24] MEDS: CALCIUM CARBONATE Chewable 500mg TABLET PO SCH (12:10)
[2017-03-24] MEDS: ACETAMINOPHEN 325 MG TABLET PO PRN (14:23)
--- NOTE | 2017-03-24 17:26 | Progress Note ---
- Date 03/24/17 Subjective: Patient seen in follow up lying in his bed with his bedside. He feels he is doing pretty well. Appetite is good. Swelling seems better. No CP or increasing SOA. No n/v. Still weak, but making small gains. Had a large BM last evening. notes his abdomen is no longer distended. He feels much better in this regard. Objective Vital signs: Temperature 97.5 F 03/24/17 16:00 Pulse Rate 76 03/24/17 16:00 Respiratory Rate 20 03/24/17 16:00 Blood Pressure 93/58 03/24/17 16:00 Pulse Oximetry 96 03/24/17 16:00 Height/Weight/BMI: Height 1.7 m Weight 129 kg Body Mass Index 45.0 - Constitutional Present: no acute distress, well nourished, well developed, obese - Routine HEENT Exam Head: Present: normocephalic, atraumatic - Routine Respiratory Exam Present: decreased breath sounds, wheezes (occ wheeze). Absent: dyspnea, respiratory distress - Routine Cardiovascular Exam Present: irregularly irregular - Routine Abdominal Exam Present: soft, non distended, non tender - Routine Extremities Exam Present: normal capillary refill Comments: No edema in LE's. Maybe 1+ in upper thighs. NO edema noted to abdomen. - Routine Skin Exam Present: dry, warm Comments: multiple scabbed/scaly lesions face and chest - Routine Neurological Exam Present: alert, oriented X3 - Routine Lymphatic Exam Lymphatic: Absent: adenopathy - Routine Psychiatric Exam Present: normal affect, cooperative Results - Labs CBC & Chem 7: 03/19/17 04:07 03/24/17 05:34 Assessment and Plan (1) Myopathy Current visit: Yes Status: Acute (2) Squamous cell skin cancer Current visit: Yes Status: Chronic (3) Acute on chronic respiratory failure with hypoxemia Current visit: Yes Status: Acute Assessment and Plan: Impression Generalized Myopathy Skin lesions consistent with basal cell and squamous cell carcinoma Recent influenza A with continued hypoxia. Hyponatremia, chronic Intertriginous dermatitis Chronic atrial fibrillation Congestive heart failure. 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 Hypertension AAA Coronary artery disease Peripheral vascular disease Hypothyroidism - resumed levothyroxine on 03/18/17 history of asthma history of seizures Plan His wt is up 6kg since yesterday which is likely an error. Clinically this does not appear to be the case. He is difficult to weigh. Will reweigh in the am. Will cancel the extra dose of Lasix as ordered this evening given his drop in sodium. His urine is dark, breathing is ok and swelling is less. Likely doesn't need further diuresis. Sodium down to 26 from 132 yesterday. Will continue to follow. Case discussed with Dr. Thomas. - Physician Narrative Physician: Jackie Thomas MD Narrative: Date: 03/24/17 Time: 1899 I have discussed this patient with the PA. The patient sodium has gone back down to 126 which is somewhat concerning however he does appear to have labile sodium levels. The PA reports that his lungs are fairly clear. He is on room air. His blood pressures are on the low side. After discussing the patient with her we decided to not give additional Lasix today. We may have to even back off his current diuretics should sodium continue to fall. It sounds like he has diastolic heart failure and will have a difficult time keeping the fluid off his legs. I agree with her assessment and plan as noted above. I have reviewed his labs, notes and imaging. Hospital Course Summary Disclaimer: The visit summary below is not to be considered part of the above Progress Note. Hospital Course: Plan Agree with admission to inpatient rehabilitation unit under the care of Dr. Pittman for significant myopathy and weakness secondary to recent acute hospitalization and illness. Patient does have a very complex past medical history and current chronic comorbidities. Appreciate hospitalist consultation for assistance in medical management. Consultation placed with the wound care team for evaluation and recommendations of ongoing wound care. Left leg squamous cell carcinoma-stable. Patient scheduled to follow with radiation oncology once medically improved. does report that she would like to use her homemade "save" which contains eggplant an essential oil. Consult to pharmacy for ongoing management of INR and Coumadin dosing. Patient has known positive urine culture for VRE. Will forego any treatment. Given chronic colonization of indwelling Sigala catheter Patient does wish to be a full code and this orders written. Appreciate medical consultation, the hospitalist services will continue to follow patient medically manage his existing comorbidities during his stay on IRU unit. At time of discharge his medical care will return to his primary care provider in Dr. Doug Ang in [place] 03/18/17 Give additional Lasix 40 mg PO now; start daily weights. Sounds like he has a hx of flash pulmonary edema; reports he was previously on Lasix TID then was decreased to BID -- monitor fluid status closely as we may need to provide extra diuresis periodically versus adding another dose in the afternoon. Will recheck BMP in am. Change dosing of gabapentin to 300 mg TID and 300 mg at 0200, per 's request. Increase simethicone to home dosing schedule. Resume levothyroxine 50 mcg -- he took this in [place]. Consider wound consultation. Suspect mild leukocytosis is chronic given prednisone use though will recheck CBC in am to document stability. INR is therapeutic. 03/20/17 Na decreased to 125 but exam suggests fluid positive state. Will increase Lasix to 60 mg BID, starting this afternoon. Will resume spironolactone. Wait on resuming KDur since K was still elevated at 4.8 but we may need to resume K soon. Renal status stable Rn to call wound team regarding excoriation under left breast. INR is therapeutic; high risk medication in use. Encourage PT/OT/activity as siva. Discussed with Dr. Pittman and with Dr. Ruvalcaba. 2/2 Given increased edema and increase in weight. We will give an additional 40 milligrams of Lasix both this evening and tomorrow evening. Recheck BMP tomorrow morning to follow electrolytes and renal function. Patient may need additional testing supplementation. Discussed importance of bowel motivation. Continue on current regimen Oral Dulcolax, Colace, senna plus, MiraLAX, milk of magnesia. Did also add Dulcolax suppository and encouraged nursing to try a brown cow. Recommend using suppository. By this evening if no bowel movements. This will also help with fluid retention and edema. Otherwise doing well. 2/3 His wt is up 6kg since yesterday which is likely an error. Clinically this does not appear to be the case. He is difficult to weigh. Will reweigh in the am. Will cancel the extra dose of Lasix as ordered this evening given his drop in sodium. His urine is dark, breathing is ok and swelling is less. Likely doesn't need further diuresis. Sodium down to 126 from 132 yesterday. Will continue to follow. Case discussed with Dr. Thomas.
[2017-03-24] MEDS ORDERED: FUROSEMIDE 40 MG TABLET PO ONE (20:00)
[2017-03-24] MEDS: POLYETHYL GLYCOL 3350 17gm PACKET PO SCH (21:38)
[2017-03-25] MEDS: GABAPENTIN 300 MG CAPSULE PO SCH ×5 (02:30→21:41)
[2017-03-25] MEDS: ALBUTEROL 2.5mg/0.5ml (0.5%) NEB AEROSOL SCH ×4 (05:18→20:16)
[2017-03-25] MEDS: Oxycodone *IR* 5 MG TABLET PO PRN ×3 (07:18→19:52)
[2017-03-25] MEDS: PANTOPRAZOLE 40 MG TABLET PO SCH (07:19)
[2017-03-25] MEDS: FUROSEMIDE 40 MG TABLET PO SCH ×2 (07:20→14:36)
[2017-03-25] MEDS: LEVOTHYROXINE 50 MCG TABLET PO SCH (07:20)
--- NOTE | 2017-03-25 09:00 | Pharmacy Consult ---
Pharmacy Consult-Warfarin - Laboratory Information 03/16/17 03/17/17 03/18/17 05:38 04:50 04:47 INR 2.18 H 2.04 H 2.00 H 03/19/17 03/20/17 03/21/17 04:07 04:19 04:18 INR 2.05 H 2.09 H 1.81 H 03/22/17 03/23/17 03/24/17 04:55 04:45 05:34 INR 1.88 H 2.09 H 2.35 H 03/25/17 03:53 INR 2.59 H - Consult Information INR's have been in target range and stable. Will begin warfarin 2.5mg daily and cut back INR's to , and Sunday. Thank you.
[2017-03-25] MEDS: NYSTATIN 500,000 units/5 ml ORAL LIQUID PO SCH ×4 (09:46→21:43)
[2017-03-25] MEDS: ASCORBIC ACID 500 MG TABLET PO SCH (09:46)
[2017-03-25] MEDS: FERROUS SULFATE 324 MG TABLET PO SCH (09:46)
[2017-03-25] MEDS: PredniSONE 20 MG TABLET PO SCH (09:47)
[2017-03-25] MEDS: LACTOBACILLUS (15B cfu) CAPSULE PO SCH (09:47)
[2017-03-25] MEDS: SENNA + DOCUSATE TABLET PO SCH ×2 (09:48→21:41)
[2017-03-25] MEDS: SIMETHICONE 80 MG CHEWABLE TABLET PO SCH ×4 (09:48→21:41)
[2017-03-25] MEDS: MAGNESIUM OXIDE 400 MG TABLET PO SCH (09:49)
[2017-03-25] MEDS: COENZYME Q-10 200mg TABLET PO SCH (09:50)
[2017-03-25] MEDS: DOCUSATE SODIUM 100 MG CAPSULE PO SCH (09:50)
[2017-03-25] MEDS: ESCITALOPRAM 20 MG TABLET PO SCH (09:50)
[2017-03-25] MEDS: GUAIFENESIN 400MG TABLET PO SCH ×4 (09:50→21:41)
[2017-03-25] MEDS: NYSTATIN OINTMENT 15gm TP SCH ×3 (09:51→21:49)
[2017-03-25] MEDS: SPIRONOLACTONE 50 MG TABLET PO SCH ×2 (09:53→21:42)
[2017-03-25] MEDS: CALCIUM CARBONATE Chewable 500mg TABLET PO SCH (14:35)
[2017-03-25] MEDS: WARFARIN 2.5 MG TABLET PO SCH (14:36)
[2017-03-25] MEDS: ACETAMINOPHEN 325 MG TABLET PO PRN (18:21)
[2017-03-25] MEDS: POLYETHYL GLYCOL 3350 17gm PACKET PO SCH (21:39)
[2017-03-26] MEDS: GABAPENTIN 300 MG CAPSULE PO SCH ×5 (04:13→21:56)
[2017-03-26] MEDS: Oxycodone *IR* 5 MG TABLET PO PRN ×3 (06:06→16:06)
[2017-03-26] MEDS: PANTOPRAZOLE 40 MG TABLET PO SCH (06:09)
[2017-03-26] MEDS: LEVOTHYROXINE 50 MCG TABLET PO SCH (06:09)
[2017-03-26] MEDS: ALBUTEROL 2.5mg/0.5ml (0.5%) NEB AEROSOL SCH ×3 (06:34→20:09)
[2017-03-26] MEDS: FERROUS SULFATE 324 MG TABLET PO SCH (10:07)
[2017-03-26] MEDS: DOCUSATE SODIUM 100 MG CAPSULE PO SCH (10:07)
[2017-03-26] MEDS: COENZYME Q-10 200mg TABLET PO SCH (10:07)
[2017-03-26] MEDS: LACTOBACILLUS (15B cfu) CAPSULE PO SCH (10:07)
[2017-03-26] MEDS: NYSTATIN 500,000 units/5 ml ORAL LIQUID PO SCH ×4 (10:07→21:56)
[2017-03-26] MEDS: FUROSEMIDE 40 MG TABLET PO SCH ×2 (10:08→13:51)
[2017-03-26] MEDS: ASCORBIC ACID 500 MG TABLET PO SCH (10:08)
[2017-03-26] MEDS: SENNA + DOCUSATE TABLET PO SCH ×2 (10:08→21:57)
[2017-03-26] MEDS: ESCITALOPRAM 20 MG TABLET PO SCH (10:09)
[2017-03-26] MEDS: GUAIFENESIN 400MG TABLET PO SCH ×4 (10:09→21:56)
[2017-03-26] MEDS: PredniSONE 20 MG TABLET PO SCH (10:09)
[2017-03-26] MEDS: SIMETHICONE 80 MG CHEWABLE TABLET PO SCH ×4 (10:09→21:57)
[2017-03-26] MEDS: SPIRONOLACTONE 50 MG TABLET PO SCH ×2 (10:09→21:57)
[2017-03-26] MEDS: NYSTATIN OINTMENT 15gm TP SCH ×3 (10:15→21:58)
--- NOTE | 2017-03-26 11:57 | Wound Care Progress Note ---
Wound Center Progress Note: 0930 in to see pt today and reassess skin issues. states over weekend he obtained more skin tears on his back, after removing 7 Mepliex it was decided to clean back, apply the 3M advanced skin protectant and apply Press and Seal over back. The thought process is to not apply any new adhesive at this time. No new treatments to legs however, all drsgings changed and wounds cleaned. Encouraged pt and to keep turning pt from side to side. Pt again refused to use akash boots for heel off loading. Pt continues to complain about pain in heels however, the skin is intact and heels do not show signs of breakdown. Will reassess on Sunday03/28/17.
[2017-03-26] MEDS: WARFARIN 2.5 MG TABLET PO SCH (13:50)
[2017-03-26] MEDS: CALCIUM CARBONATE Chewable 500mg TABLET PO SCH (13:51)
--- NOTE | 2017-03-26 14:48 | IRU Progress Note ---
- Subjective/Serverity of Illness Date: 03/26/17 Mr. Hutchinson is interviewed and examined in his room with his and therapists present. Continues to have easy fatigability. He reports that he continues to have a cough with opaque white sputum although the quantity may be a bit less. Has some evidence of dyspnea with activity although denies much symptoms in this regard. Denies any chest pain. He is able to eat and drink adequately. Brief therapy update: He is being co-treated by occupational therapy and physical therapy due to patient's easy fatigability and for safety concerns. Lower body dressing is performed with total assistance. Transfers from supine to sit are with moderate assistance. Bed/chair/wheelchair transfers are with total assist. For physical therapy, sliding board placement and removal requires maximum assistance. He has to be reoriented in order to perform upper body dressing. Update on medical issues were actively managing and monitoring as follows: 1. Disuse myopathy: He continues to have evidence of severe proximal muscle weakness as well as generalized weakness. He is quite deconditioned. He is cooperative with therapy. 2. Acute on chronic diastolic heart failure with preserved ejection fraction: Lung exam continues to demonstrate a few wheezes but no crackles. Remains on diuretics. Weight has been variable from 128 up to 129 then 133 and now down to 130 kg. This is followed by the hospitalist service. 3. Acute on chronic hypoxemic respiratory failure with requirement for oxygen supplementation: Continues to be on room air during the daytime. 4. Recent influenza A infection: Continues to require inhaled bronchodilators. Continues to have expiratory wheezes. 5. Chronic kidney disease stage III: Creatinine stable at 1.3 although estimated GFR is 53 which continues to be consistent with stage III chronic kidney disease. 6. Hyponatremia, multifactorial: Sodium levels are variable and now down to 126. According to the chart, he has not overdrinking and I reviewed with his the importance of not forcing fluids orally in order to keep the sodium. 7. Chronic indwelling Sigala catheter secondary to chronic urinary urgency, frequency and incontinence with colonization but without active infection (no fever and no other symptoms): Catheter remains in place without evidence of active infection. 8. Chronic leg wounds/ulcerations: Wound care is involved. Dressing changes today. 9. Atrial fibrillation: Pharmacy following warfarin dosing and INR. It is therapeutic today. 10. Multiple skin lesions including squamous cell carcinoma of left thomas, multiple apparent basal cell lesions and multiple decubitus lesions including both heels, low midline of his back. Wound care monitoring. I did not remove the dressings today. Exam Vital Signs: Temperature 98.5 F 03/26/17 08:00 Pulse Rate 66 03/26/17 08:00 Respiratory Rate 21 03/26/17 13:14 Blood Pressure 127/60 03/26/17 08:00 Pulse Oximetry 96 03/26/17 13:14 Height/Weight/BMI: Height 1.7 m Weight 130 kg Body Mass Index 45.0 - Constitutional Present: no acute distress, well nourished, well developed, morbidly obese, cooperative - Routine HEENT Exam Head: Present: normocephalic Eye: Present: EOMI ENT: Present: mucous membranes moist, oropharynx clear - Routine Neck Exam Present: supple - Routine Respiratory Exam Present: decreased breath sounds, wheezes. Absent: rhonchi, stridor - Routine Cardiovascular Exam Present: RRR, S1, S2. Absent: murmur - Routine Abdominal Exam Present: soft, normoactive bowel sounds, non distended. Absent: tenderness - Routine Extremities Exam Present: edema (but only minimal at present.), normal capillary refill - Routine Skin Exam Present: dry, warm, wounds (multiple wounds again noted. Please see wound care nurse's notes.) - Routine Neurological Exam Present: alert, oriented X3, CN II-XII intact - Routine Psychiatric Exam Present: normal affect, cooperative IRU A/P (1) Myopathy Current visit: Yes Status: Acute Has significant myopathy. Requires assistance for standing and for transfers. Making slow progress and cooperative. (2) Influenza A Current visit: Yes Status: Resolved (3) Rheumatoid arthritis Qualifiers: Rheumatoid arthritis location: multiple sites Rheumatoid factor presence: unspecified presence Qualified Code(s): M06.9 - Rheumatoid arthritis, unspecified Current visit: Yes Status: Chronic (4) Atrial fibrillation, chronic Current visit: Yes Status: Chronic Patient remains on warfarin with therapeutic INR. No evidence of neurologic change and no evidence of bleeding. (5) (HFpEF) heart failure with preserved ejection fraction Current visit: Yes Status: Chronic Weight is variable but now down 3 kg. Patient remains on diuretics. Lungs show wheezes but no crackles. (6) CKD (chronic kidney disease) stage 3, GFR 30-59 ml/min Current visit: Yes Status: Chronic Repeat creatinine normal at 1.3 although calculation of estimated GFR is 53, consistent with stage III chronic kidney disease. (7) Squamous cell skin cancer Current visit: Yes Status: Chronic (8) Chronic indwelling Sigala catheter Current visit: Yes Status: Chronic (9) Acute on chronic respiratory failure with hypoxemia Current visit: Yes Status: Acute His requirement for daytime oxygen continues to improve. (10) Acute bronchospasm Current visit: Yes Status: Acute He continues to have wheezes bilaterally. (11) SONYA (obstructive sleep apnea) Current visit: Yes Status: Chronic (12) Slow transit constipation Current visit: Yes Status: Acute DVT Prophylaxis: Coumadin Resuscitation Status: Do Not Resuscitate - Course Hospital Course: Pedro Pittman MD: 03/16/17 12:11 Multiple medical problems as outlined. Severe weakness noted. Just getting started with therapies. 03/19/17 12:04 Patient is cooperative and participates with therapy although progress is quite slow. Continues to have expiratory wheezes. He is afebrile. Numerous skin lesions identified. would like to have lidocaine used for dressing removal. I will discuss with wound care. 03/20/17 10:44 Multiple skin lesions will require continued meticulous nursing management. Medically he seems stable. Lungs are clear. INR is therapeutic. He is participating with therapy. 03/22/17 11:35 Slow progression with therapy. Multiple skin lesions noted and being monitored by nursing including wound care nurse. INR subtherapeutic. 03/23/17 11:46 Slow progress with therapy. INR therapeutic. Complains of constipation. 03/26/17 14:53 Progress continues to be slow. Sodium down to 126. Weight was up to 133 and now down to 130 kg. Easy fatigability and continued evidence of critical illness/disuse myopathy. - Interventions to Obtain Goals PT Treatment Plan: Balance/Proprioception, Functional Activities, Gait Training , Patient/Family Education, Therapeutic Exercise OT Treatment Plan: ADL (Basic Care), Balance Training, Pt./Family Education, Ther. Exercise for ADL Goals Progress/Modifications: Time spent with patient and on floor reviewing data and documentin min Barriers to dismissal: Weakness, endurance, confidence, multiple medical issues , skin care Medical decision-making: Patient continues to have easy fatigability. He is cooperative with therapy and trying to get stronger. Discussed case with patient 's on several occasions as well. Questions were addressed. Lungs continue to demonstrate some wheezes. He is not overly fatigued by therapy and we will continue working with him. Certainly has reduced endurance and deconditioning with evidence of ongoing myopathy. Skin care continues to be an ongoing challenge. Discussed with wound care nurse today. Plans are not to put further dressings on the back with the exception of the "press and seal" variety.
[2017-03-26] MEDS: POLYETHYL GLYCOL 3350 17gm PACKET PO PRN (22:04)
[2017-03-27] MEDS: GABAPENTIN 300 MG CAPSULE PO SCH ×3 (02:17→17:49)
[2017-03-27] MEDS: FUROSEMIDE 40 MG TABLET PO SCH ×2 (06:55→14:20)
[2017-03-27] MEDS: LEVOTHYROXINE 50 MCG TABLET PO SCH (06:55)
[2017-03-27] MEDS: PANTOPRAZOLE 40 MG TABLET PO SCH (06:55)
[2017-03-27] MEDS: Oxycodone *IR* 5 MG TABLET PO PRN ×4 (06:56→22:20)
[2017-03-27] MEDS: ALBUTEROL 2.5mg/0.5ml (0.5%) NEB AEROSOL SCH ×4 (07:30→20:11)
--- NOTE | 2017-03-27 09:03 | Pharmacy Consult ---
Pharmacy Consult-Warfarin - Laboratory Information 03/25/17 03/27/17 03:53 04:09 INR 2.59 H 2.62 H - Consult Information Warfarin Dosing Protocol: 76 y.o. Male with history of A. Fib. and chronic anticoagulation with warfarin. Home dose reported as Warfarin 2mg daily, except on Fridays takes 1mg. goal INR range= 2.0 to 3.0 Date INR dose 03/15 - 2 mg 03/16 2.18 2 mg 03/17 2.04 2 mg 03/18 2.00 2.5 mg 03/19 2.05 2.5 mg 03/20 2.09 2.5 mg 03/21 1.81 3 mg 03/22 1.88 3 mg 03/23 2.09 3 mg 03/24 2.35 3 mg 03/25 2.59 2.5 mg daily and INR's , 03/27 2.62 Continue the 2.5 mg dose The Warfarin has been changed to Warfarin 2.5 mg p.o. daily and INR's drawn on , , and . I will continue the warfarin dose and INR draws as currently ordered. The Pharmacy will continue to monitor and adjust the warfarin dose as needed. Thanks for Warfarin Protocol, Baudilio Blackmon, Pharmacist
--- NOTE | 2017-03-27 09:27 | Progress Note ---
- Date 03/27/17 Subjective: Devendra is seen this morning while watching television finishing breakfast. He is alert and pleasant. He complains of having some left pain however he did just have a pain medication prior to examination. Overall he states that he is feeling better and thinks that he is getting stronger. Denies having chest pain , shortness of breath or abdominal pain. Vital signs stable. Objective Vital signs: Temperature 98.4 F 03/27/17 08:00 Pulse Rate 90 03/27/17 08:00 Respiratory Rate 18 03/27/17 08:00 Blood Pressure 126/72 03/27/17 08:00 Pulse Oximetry 98 03/27/17 08:00 Height/Weight/BMI: Height 1.7 m Weight 130 kg Body Mass Index 45.0 - Constitutional Present: no acute distress, well nourished, well developed - Routine HEENT Exam Eye: Present: EOMI ENT: Present: mucous membranes moist, dentition normal - Routine Respiratory Exam Present: CTA bilaterally. Absent: wheezes - Routine Cardiovascular Exam Present: RRR, S1, S2. Absent: murmur - Routine Abdominal Exam Present: soft, normoactive bowel sounds, non distended. Absent: tenderness - Routine Extremities Exam Present: edema (Bilateral lower ext) - Routine Skin Exam Present: intact, dry, warm Comments: multiple areas of scaly lesions generalized all over upper body. Open wound to LLE with dressing intact. - Routine Neurological Exam Present: alert, oriented X3, CN II-XII intact - Routine Lymphatic Exam Lymphatic: Absent: adenopathy - Routine Psychiatric Exam Present: normal affect, cooperative Results - Labs CBC & Chem 7: 03/25/17 09:31 03/27/17 04:09 Assessment and Plan (1) Myopathy Current visit: Yes Status: Acute (2) Squamous cell skin cancer Current visit: Yes Status: Chronic (3) Acute on chronic respiratory failure with hypoxemia Current visit: Yes Status: Acute Assessment and Plan: Impression Generalized Myopathy Skin lesions consistent with basal cell and squamous cell carcinoma Recent influenza A with continued hypoxia. Hyponatremia, chronic Intertriginous dermatitis Chronic atrial fibrillation Congestive heart failure. 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 Hypertension AAA Coronary artery disease Peripheral vascular disease Hypothyroidism - resumed levothyroxine on 03/18/17 history of asthma history of seizures Plan Sodium is again down to 124. Nursing staff does report patient drinks "numerous pitchers of water a day". This is likely attributing to hyponatremia. Weight yesterday at baseline admission weight. Continue to watch daily weights Will decrease second Lasix dose to 40mg at 1400 and continue with 60 mg in the am Recheck BMP tomorrow morning Continue to encourage work with PT/OT Case discussed with attending, Dr Ruvalcaba - Physician Narrative Narrative: Date: 03/27/17 Time: 912 Hospital Course Summary Disclaimer: The visit summary below is not to be considered part of the above Progress Note. Hospital Course: Plan Agree with admission to inpatient rehabilitation unit under the care of Dr. Pittman for significant myopathy and weakness secondary to recent acute hospitalization and illness. Patient does have a very complex past medical history and current chronic comorbidities. Appreciate hospitalist consultation for assistance in medical management. Consultation placed with the wound care team for evaluation and recommendations of ongoing wound care. Left leg squamous cell carcinoma-stable. Patient scheduled to follow with radiation oncology once medically improved. does report that she would like to use her homemade "save" which contains eggplant an essential oil. Consult to pharmacy for ongoing management of INR and Coumadin dosing. Patient has known positive urine culture for VRE. Will forego any treatment. Given chronic colonization of indwelling Sigala catheter Patient does wish to be a full code and this orders written. Appreciate medical consultation, the hospitalist services will continue to follow patient medically manage his existing comorbidities during his stay on IRU unit. At time of discharge his medical care will return to his primary care provider in Dr. Doug Ang in [place] 03/18/17 Give additional Lasix 40 mg PO now; start daily weights. Sounds like he has a hx of flash pulmonary edema; reports he was previously on Lasix TID then was decreased to BID -- monitor fluid status closely as we may need to provide extra diuresis periodically versus adding another dose in the afternoon. Will recheck BMP in am. Change dosing of gabapentin to 300 mg TID and 300 mg at 0200, per 's request. Increase simethicone to home dosing schedule. Resume levothyroxine 50 mcg -- he took this in [place]. Consider wound consultation. Suspect mild leukocytosis is chronic given prednisone use though will recheck CBC in am to document stability. INR is therapeutic. 03/20/17 Na decreased to 125 but exam suggests fluid positive state. Will increase Lasix to 60 mg BID, starting this afternoon. Will resume spironolactone. Wait on resuming KDur since K was still elevated at 4.8 but we may need to resume K soon. Renal status stable Rn to call wound team regarding excoriation under left breast. INR is therapeutic; high risk medication in use. Encourage PT/OT/activity as siva. Discussed with Dr. Pittman and with Dr. Ruvalcaba. 2/2 Given increased edema and increase in weight. We will give an additional 40 milligrams of Lasix both this evening and tomorrow evening. Recheck BMP tomorrow morning to follow electrolytes and renal function. Patient may need additional testing supplementation. Discussed importance of bowel motivation. Continue on current regimen Oral Dulcolax, Colace, senna plus, MiraLAX, milk of magnesia. Did also add Dulcolax suppository and encouraged nursing to try a brown cow. Recommend using suppository. By this evening if no bowel movements. This will also help with fluid retention and edema. Otherwise doing well. 2/3 His wt is up 6kg since yesterday which is likely an error. Clinically this does not appear to be the case. He is difficult to weigh. Will reweigh in the am. Will cancel the extra dose of Lasix as ordered this evening given his drop in sodium. His urine is dark, breathing is ok and swelling is less. Likely doesn't need further diuresis. Sodium down to 126 from 132 yesterday. Will continue to follow. Case discussed with Dr. Thomas. 03/27 Sodium is again down to 124. Nursing staff does report patient drinks "numerous pitchers of water a day". This is likely attributing to hyponatremia. Weight yesterday at baseline admission weight. Continue to watch daily weights Will decrease second Lasix dose to 40mg at 1400 and continue with 60 mg in the am Recheck BMP tomorrow morning Continue to encourage work with PT/OT Case discussed with attending, Dr Ruvalcaba
[2017-03-27] MEDS: LACTOBACILLUS (15B cfu) CAPSULE PO SCH (09:35)
[2017-03-27] MEDS: FERROUS SULFATE 324 MG TABLET PO SCH (09:35)
[2017-03-27] MEDS: ASCORBIC ACID 500 MG TABLET PO SCH (09:36)
[2017-03-27] MEDS: PredniSONE 20 MG TABLET PO SCH (09:36)
[2017-03-27] MEDS: ESCITALOPRAM 20 MG TABLET PO SCH (09:37)
[2017-03-27] MEDS: COENZYME Q-10 200mg TABLET PO SCH (09:37)
[2017-03-27] MEDS: NYSTATIN 500,000 units/5 ml ORAL LIQUID PO SCH ×4 (09:38→20:47)
[2017-03-27] MEDS: NYSTATIN OINTMENT 15gm TP SCH ×3 (09:38→20:47)
[2017-03-27] MEDS: GUAIFENESIN 400MG TABLET PO SCH ×4 (09:38→20:45)
[2017-03-27] MEDS: ACETAMINOPHEN 325 MG TABLET PO PRN ×2 (09:39→15:53)
[2017-03-27] MEDS: SENNA + DOCUSATE TABLET PO SCH ×2 (09:39→20:46)
[2017-03-27] MEDS: SIMETHICONE 80 MG CHEWABLE TABLET PO SCH ×4 (09:39→20:46)
[2017-03-27] MEDS: SPIRONOLACTONE 50 MG TABLET PO SCH ×2 (09:39→20:46)
--- NOTE | 2017-03-27 10:27 | IRU Progress Note ---
- Subjective/Serverity of Illness Date: 03/27/17 Devendra was evaluated in his room on an inpatient rehabilitation. His was present. He reports he did not sleep well last night secondary to pain in the right leg. He finds it difficult to exactly pin down where the pain is. Apparently it is located predominantly in the right heel. I palpated the area. He does have a dressing on this area which I removed to inspect the heel. Heel pad itself is a bit darkened as it was previously. There is a pinpoint drainage area posteriorly. It does not appear to be actively inflamed nor red. Palpation of both these areas provided some discomfort. He then modified his statements indicate that he had pain throughout the right leg. With regard to pain management, besides his narcotics, he is on gabapentin 300 mg 3 times daily + 300 mg at 2 AM. We will modify this to 300 mg in the morning , 300 mg around 5 PM and 400 mg at bedtime plus his 300 mg at 2 AM. Secondly, he reports continued cough and sputum. He thinks it is breaking up a bit. Today when listened to his lungs he does not have overt wheezing but does have a lot of rhonchi indicating large airway mucus. He denies any chest pain and denies xiomara shortness of breath. He reports easy fatigability with exercise/therapy. indicates that he gets pretty sleepy with his pain medication. He is trying to avoid this prior to the therapy according to his . Sodium is down to 124. He is now on a fluid restriction. He apparently drinks multiple pitchers of water daily. No doubt this plays a role in his low sodium. Exam Vital Signs: Temperature 98.4 F 03/27/17 08:00 Pulse Rate 90 03/27/17 08:00 Respiratory Rate 18 03/27/17 08:00 Blood Pressure 126/72 03/27/17 08:00 Pulse Oximetry 98 03/27/17 08:00 Height/Weight/BMI: Height 1.7 m Weight 130 kg Body Mass Index 45.0 - Constitutional Present: well nourished, well developed, morbidly obese, cooperative - Routine HEENT Exam Head: Present: normocephalic, atraumatic, cushingoid faces Eye: Present: EOMI ENT: Present: mucous membranes moist, oropharynx clear - Routine Respiratory Exam Present: decreased breath sounds, rhonchi. Absent: wheezes - Routine Cardiovascular Exam Present: S1, S2, irregularly irregular. Absent: murmur - Routine Abdominal Exam Present: soft, normoactive bowel sounds, non distended. Absent: tenderness - Routine Extremities Exam Present: no edema Comments: Pinpoint area of opening posterior right heel. Bottom of the heel (plantar surface, heel pad area) remains darkened as it was previously. No open ulceration. - Routine Back/Spine/Pelvis Exam Back/Spine: Absent: full ROM - Routine Skin Exam Present: dry, warm, wounds - Routine Neurological Exam Present: alert, oriented X3, CN II-XII intact - Routine Psychiatric Exam Present: normal affect, normal thought process, cooperative. Absent: good insight, good judgment Results IRU - Labs Labs: Reviewed labs including sodium 124 as well as other providers notes. IRU A/P (1) Myopathy Current visit: Yes Status: Acute Strength continues to be reduced. He continues to be very deconditioned. (2) Influenza A Current visit: Yes Status: Resolved (3) Rheumatoid arthritis Qualifiers: Rheumatoid arthritis location: multiple sites Rheumatoid factor presence: unspecified presence Qualified Code(s): M06.9 - Rheumatoid arthritis, unspecified Current visit: Yes Status: Chronic (4) Atrial fibrillation, chronic Current visit: Yes Status: Chronic INR is therapeutic. (5) (HFpEF) heart failure with preserved ejection fraction Current visit: Yes Status: Chronic (6) CKD (chronic kidney disease) stage 3, GFR 30-59 ml/min Current visit: Yes Status: Chronic (7) Squamous cell skin cancer Current visit: Yes Status: Chronic (8) Chronic indwelling Sigala catheter Current visit: Yes Status: Chronic (9) Acute on chronic respiratory failure with hypoxemia Current visit: Yes Status: Acute (10) Acute bronchospasm Current visit: Yes Status: Acute At the present time I do not hear wheezes but do hear rhonchi. (11) SONYA (obstructive sleep apnea) Current visit: Yes Status: Chronic (12) Slow transit constipation Current visit: Yes Status: Acute (13) Hyponatremia Current visit: Yes Status: Chronic Apparently did patient is using a lot of water. He is now on a fluid restriction which should help his sodium. (14) Neuropathic pain of both legs Current visit: Yes Status: Chronic Modification of gabapentin dose as noted above. DVT Prophylaxis: Coumadin Resuscitation Status: Do Not Resuscitate - Course Hospital Course: Pedro Pittman MD: 03/16/17 12:11 Multiple medical problems as outlined. Severe weakness noted. Just getting started with therapies. 03/19/17 12:04 Patient is cooperative and participates with therapy although progress is quite slow. Continues to have expiratory wheezes. He is afebrile. Numerous skin lesions identified. would like to have lidocaine used for dressing removal. I will discuss with wound care. 03/20/17 10:44 Multiple skin lesions will require continued meticulous nursing management. Medically he seems stable. Lungs are clear. INR is therapeutic. He is participating with therapy. 03/22/17 11:35 Slow progression with therapy. Multiple skin lesions noted and being monitored by nursing including wound care nurse. INR subtherapeutic. 03/23/17 11:46 Slow progress with therapy. INR therapeutic. Complains of constipation. 03/26/17 14:53 Progress continues to be slow. Sodium down to 126. Weight was up to 133 and now down to 130 kg. Easy fatigability and continued evidence of critical illness/disuse myopathy. 03/27/17 10:30 Sodium down to 124. He is overdrinking fluids and he was advised not to do that. Now on a fluid restriction. Complains of pain in the right leg heel pad area but also throughout the leg. We will modify the gabapentin dose. - Interventions to Obtain Goals PT Treatment Plan: Balance/Proprioception, Functional Activities, Gait Training , Patient/Family Education, Therapeutic Exercise OT Treatment Plan: ADL (Basic Care), Balance Training, Pt./Family Education, Ther. Exercise for ADL Goals Progress/Modifications: Time spent with patient and on floor reviewing data and documentin min Barriers to dismissal: Weakness, endurance, multiple wounds Medical decision-making: Sodium 124. He is drinking too much fluid. He is now on a fluid restriction. I do not hear any crackles in the lungs but do hear rhonchi, consistent with large airway noise/mucus. Does not have much in the way of edema. Has a lot of pain in the right leg in particular and we will increase gabapentin as described previously. Continues to work with therapy although progress is slow.
[2017-03-27] MEDS: CALCIUM CARBONATE Chewable 500mg TABLET PO SCH (12:50)
[2017-03-27] MEDS: WARFARIN 2.5 MG TABLET PO SCH (12:50)
[2017-03-27] MEDS: GABAPENTIN 400 MG CAPSULE PO SCH (20:46)
[2017-03-28] MEDS: GABAPENTIN 300 MG CAPSULE PO SCH ×3 (01:50→17:29)
[2017-03-28] MEDS: ALBUTEROL 2.5mg/0.5ml (0.5%) NEB AEROSOL SCH ×4 (02:10→21:00)
[2017-03-28] MEDS: FUROSEMIDE 40 MG TABLET PO SCH ×2 (05:58→06:16)
[2017-03-28] MEDS: Oxycodone *IR* 5 MG TABLET PO PRN ×4 (05:59→20:21)
[2017-03-28] MEDS: LEVOTHYROXINE 50 MCG TABLET PO SCH (05:59)
[2017-03-28] MEDS: PANTOPRAZOLE 40 MG TABLET PO SCH (06:15)
[2017-03-28] MEDS: SIMETHICONE 80 MG CHEWABLE TABLET PO SCH ×5 (06:15→20:25)
[2017-03-28] MEDS: NYSTATIN 500,000 units/5 ml ORAL LIQUID PO SCH ×4 (09:22→20:34)
[2017-03-28] MEDS: FERROUS SULFATE 324 MG TABLET PO SCH (09:23)
[2017-03-28] MEDS: COENZYME Q-10 200mg TABLET PO SCH (09:23)
[2017-03-28] MEDS: PredniSONE 20 MG TABLET PO SCH (09:23)
[2017-03-28] MEDS: ASCORBIC ACID 500 MG TABLET PO SCH (09:23)
[2017-03-28] MEDS: ESCITALOPRAM 20 MG TABLET PO SCH (09:24)
[2017-03-28] MEDS: GUAIFENESIN 400MG TABLET PO SCH ×4 (09:24→20:22)
[2017-03-28] MEDS: SPIRONOLACTONE 50 MG TABLET PO SCH ×2 (09:24→20:25)
[2017-03-28] MEDS: LACTOBACILLUS (15B cfu) CAPSULE PO SCH (09:24)
[2017-03-28] MEDS: NYSTATIN OINTMENT 15gm TP SCH ×3 (09:25→20:35)
[2017-03-28] MEDS: SENNA + DOCUSATE TABLET PO SCH ×2 (09:25→20:26)
--- NOTE | 2017-03-28 11:28 | Progress Note ---
- Date 03/28/17 Subjective: Pt was seen after a brief syncopal event while working with PT. He was attempting to stand up using the [id number] lift when his eyes rolled back into his head and he passed out for a couple of seconds. He did not lose control of bowel or bladder and staff who witnessed the event deny any shaking or seizure like activity. The staff report that he's been slow to respond and hallucinating over the last 2 days. He had a syncopal event last week while using the [id number] lift as well. states that he's retaining some fluid , but compared to a week ago the degree of pitting edema in his trunk and thighs has improved. When I saw him, he was slow to respond. He stated he was in rehab in [place], [place]; he was accurate on month/year. Objective Vital signs: Temperature 97.5 F 03/28/17 08:00 Pulse Rate 80 03/28/17 10:35 Respiratory Rate 20 03/28/17 10:35 Blood Pressure 113/68 03/28/17 10:35 Pulse Oximetry 96 03/28/17 10:35 Height/Weight/BMI: Height 1.7 m Weight 131 kg Body Mass Index 45.0 - Constitutional Present: well nourished, well developed, obese - Routine HEENT Exam Head: Present: normocephalic Eye: Absent: conjunctival icterus, scleral injection ENT: Present: mucous membranes dry - Routine Respiratory Exam Present: decreased breath sounds, CTA bilaterally - Routine Cardiovascular Exam Present: irregularly irregular - Routine Abdominal Exam Present: normoactive bowel sounds, non tender - Routine Extremities Exam Present: edema (1+ pitting edema to thighs; trace edema in lower abdomen/back), pulses intact - Routine Skin Exam Present: dry, warm, lesions (multiple SC lesions to face; dressings on legs; Mepilex on knees was peeled back to reveal b/l abrasions with granulation tissue and small amt bioburden with surrounding erythema and bruising) - Routine Neurological Exam Present: alert, CN II-XII intact (follows commands well but he is slow to respond), moving all extremities, vision grossly intact, hearing grossly intact , normal speech - Routine Psychiatric Exam Present: normal thought process, cooperative Results - Labs CBC & Chem 7: 03/25/17 09:31 03/28/17 04:19 Assessment and Plan (1) Myopathy Current visit: Yes Status: Acute (2) Squamous cell skin cancer Current visit: Yes Status: Chronic (3) Acute on chronic respiratory failure with hypoxemia Current visit: Yes Status: Acute Assessment and Plan: Impression Syncope, recurrent Acute encephalopathy Generalized Myopathy Skin lesions consistent with basal cell and squamous cell carcinoma Recent influenza A with continued hypoxia. Hyponatremia, chronic Intertriginous dermatitis Chronic atrial fibrillation Congestive heart failure. 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 Hypertension AAA Coronary artery disease Peripheral vascular disease Hypothyroidism - resumed levothyroxine on 03/18/17 history of asthma history of seizures Plan Recurrent syncope -- check EKG, trop x3, CT head, CXR Acute encephalopathy -- poss r/t hyponatremia; Na down to 123 today ? intervascularly dry Hold Lasix this afternoon. Hold metolazone. Give NS 500 mL IVF today. Cont wound care -- asks about dsg options other than Mepilex EKG personally reviewed: A-fib with controlled rate; No ST elevation/depression ; RBBB; +Q wave lat leads CXR personally reviewed: no pulmonary congestion/infiltrate Trop #1 = 0.[address] pending. Repeat CBC and BMP in am. Dr. Ang's office in [facility] contacted; awaiting to hear back from Dr. Ang. GI Prophylaxis: Protonix Resuscitation Status: Do Not Resuscitate - Physician Narrative Physician: Cindy Ruvalcaba MD Narrative: Date: 03/28/17 Time: 1830 I have independently evaluated and examined this patient. I reviewed the chart, the patient's history, and the /PA's documented findings as above. We discussed and formulated the assessment and plan as above with additions as below: Mr. Hutchinson was resting when seen. He reports is been a bad day with lightheadedness and syncope and therapy although he subsequently has not had recurrent lightheadedness. He denies chest pain or dyspnea. Multiple skin lesions as in the past, respirations nonlabored, diminished airflow by breath sounds clear +2 pitting edema in the dependent thighs and lower abdomen; thighs seems softer than I recall them being when I last evaluated him. No distal lower extremity edema Troponin 0.0-6-0.020 CT head reviewed by myself and demonstrates no acute intracranial abnormality although there is some atrophy. Portable chest x-ray also reviewed by myself-NAD, unchanged from prior film. Worsening hyponatremia-initially improved with diuresis; increasing BUN, weight also back up. Agree that there is a component of intravascular dehydration although he remains total body volume overloaded. Check albumin with morning labs in addition to BNP. Hospital Course Summary Disclaimer: The visit summary below is not to be considered part of the above Progress Note. Hospital Course: Plan Agree with admission to inpatient rehabilitation unit under the care of Dr. Pittman for significant myopathy and weakness secondary to recent acute hospitalization and illness. Patient does have a very complex past medical history and current chronic comorbidities. Appreciate hospitalist consultation for assistance in medical management. Consultation placed with the wound care team for evaluation and recommendations of ongoing wound care. Left leg squamous cell carcinoma-stable. Patient scheduled to follow with radiation oncology once medically improved. does report that she would like to use her homemade "save" which contains eggplant an essential oil. Consult to pharmacy for ongoing management of INR and Coumadin dosing. Patient has known positive urine culture for VRE. Will forego any treatment. Given chronic colonization of indwelling Sigala catheter Patient does wish to be a full code and this orders written. Appreciate medical consultation, the hospitalist services will continue to follow patient medically manage his existing comorbidities during his stay on IRU unit. At time of discharge his medical care will return to his primary care provider in Dr. Doug Ang in [place] 03/18/17 Give additional Lasix 40 mg PO now; start daily weights. Sounds like he has a hx of flash pulmonary edema; reports he was previously on Lasix TID then was decreased to BID -- monitor fluid status closely as we may need to provide extra diuresis periodically versus adding another dose in the afternoon. Will recheck BMP in am. Change dosing of gabapentin to 300 mg TID and 300 mg at 0200, per 's request. Increase simethicone to home dosing schedule. Resume levothyroxine 50 mcg -- he took this in [place]. Consider wound consultation. Suspect mild leukocytosis is chronic given prednisone use though will recheck CBC in am to document stability. INR is therapeutic. 03/20/17 Na decreased to 125 but exam suggests fluid positive state. Will increase Lasix to 60 mg BID, starting this afternoon. Will resume spironolactone. Wait on resuming KDur since K was still elevated at 4.8 but we may need to resume K soon. Renal status stable Rn to call wound team regarding excoriation under left breast. INR is therapeutic; high risk medication in use. Encourage PT/OT/activity as siva. Discussed with Dr. Pittman and with Dr. Ruvalcaba. 2/2 Given increased edema and increase in weight. We will give an additional 40 milligrams of Lasix both this evening and tomorrow evening. Recheck BMP tomorrow morning to follow electrolytes and renal function. Patient may need additional testing supplementation. Discussed importance of bowel motivation. Continue on current regimen Oral Dulcolax, Colace, senna plus, MiraLAX, milk of magnesia. Did also add Dulcolax suppository and encouraged nursing to try a brown cow. Recommend using suppository. By this evening if no bowel movements. This will also help with fluid retention and edema. Otherwise doing well. 2/3 His wt is up 6kg since yesterday which is likely an error. Clinically this does not appear to be the case. He is difficult to weigh. Will reweigh in the am. Will cancel the extra dose of Lasix as ordered this evening given his drop in sodium. His urine is dark, breathing is ok and swelling is less. Likely doesn't need further diuresis. Sodium down to 126 from 132 yesterday. Will continue to follow. Case discussed with Dr. Thomas. 2/ Sodium is again down to 124. Nursing staff does report patient drinks "numerous pitchers of water a day". This is likely attributing to hyponatremia. Weight yesterday at baseline admission weight. Continue to watch daily weights Will decrease second Lasix dose to 40mg at 1400 and continue with 60 mg in the am 2 Recurrent syncope -- check EKG, trop x3, CT head, CXR Acute encephalopathy -- poss r/t hyponatremia; Na down to 123 today ? intervascularly dry Hold Lasix this afternoon. Hold metolazone. Give NS 500 mL IVF today. Cont wound care -- asks about dsg options other than Mepilex EKG personally reviewed: A-fib with controlled rate; No ST elevation/depression ; RBBB; +Q wave lat leads CXR personally reviewed: no pulmonary congestion/infiltrate Trop #1 = 0.[address] pending. Addendum entered and electronically signed by Aundrea Chowdary APRN 03/28/17 12: 47: Pt's reports that he used to take Movantik, which worked well for opioid induced constipation and didn't have any side effects. He took this with other laxatives. Will start 12.5 mg tomorrow am. Addendum entered and electronically signed by Aundrea Chowdary APRN 03/28/17 13: 21: I spoke with Dr. Ang from [place]. During his 90+ day SNF stay he showed only minimal improvement in functional status. He tends to run about 128-130 on sodium level, with elevated bicarb as well. He has had several syncopal episodes during his SNF stay. Diuretics at time of dc were: Spironolactone 25 mg BID, metolazone 5 mg daily, and Lasix [address] Ang noted anasarca while at SNF. LTC placement was recommended but pt/ declined.
--- NOTE | 2017-03-28 12:09 | XRay Report ---
Indication: syncope PROCEDURE: XR chest 1V: Encounter: Initial Comparison: March 21, 2017 Findings: The lungs are stable in appearance without new focal airspace consolidation. There is no pleural effusion or pneumothorax. The heart size, pulmonary vascularity and mediastinal contours are unchanged. Thoracic epidural spinal stimulator device. IMPRESSION: Stable appearance of the chest without acute cardiopulmonary disease. .
[2017-03-28] MEDS: WARFARIN 2.5 MG TABLET PO SCH (12:59)
[2017-03-28] MEDS: CALCIUM CARBONATE Chewable 500mg TABLET PO SCH (12:59)
--- NOTE | 2017-03-28 13:47 | CT Scan Report ---
Indication: syncope PROCEDURE: CT head/brain wo con: Encounter: Initial Comparison: None Technique: Axial CT images through the head were performed without contrast. Iterative Reconstruction dose reducing technique was utilized. FINDINGS: Mild atrophy. The ventricles are of normal size, shape, and contour for the patient's age. There are scattered areas of low attenuation in the white matter which most likely represent changes from chronic microvascular ischemia. The brainstem, cerebellum, and cerebral hemispheres otherwise have a normal morphology and CT attenuation. There is no evidence of midline displacement. No hemorrhage, signs of acute territorial stroke, mass effect, mass lesions, or edema is evident. The visualized portions of the skull base, midface, and calvarium demonstrate no abnormality. Severe sinus disease with near complete opacification of the maxillary sinuses and acute air-fluid levels. The tympanic and mastoid cavities appear normal. IMPRESSION: No acute intracranial abnormality or hemorrhage. Acute maxillary sinusitis. .
[2017-03-28] MEDS: GABAPENTIN 400 MG CAPSULE PO SCH (20:23)
[2017-03-29] MEDS: GABAPENTIN 300 MG CAPSULE PO SCH ×2 (02:15→10:06)
[2017-03-29] MEDS: Oxycodone *IR* 5 MG TABLET PO PRN ×4 (02:19→18:17)
[2017-03-29] MEDS: ALBUTEROL 2.5mg/3ml (0.083%) NEB AEROSOL PRN (03:20)
[2017-03-29] MEDS: ALBUTEROL 2.5mg/0.5ml (0.5%) NEB AEROSOL SCH ×4 (05:32→19:55)
[2017-03-29] MEDS: NALOXEGOL 12.5 MG TABLET PO SCH (06:58)
[2017-03-29] MEDS: LEVOTHYROXINE 50 MCG TABLET PO SCH (06:58)
[2017-03-29] MEDS: PANTOPRAZOLE 40 MG TABLET PO SCH (06:59)
[2017-03-29] MEDS: FUROSEMIDE 40 MG TABLET PO SCH (07:00)
--- NOTE | 2017-03-29 07:56 | Pharmacy Consult ---
Pharmacy Consult-Warfarin - Laboratory Information 03/25/17 03/27/17 03/29/17 03:53 04:09 04:43 INR 2.59 H 2.62 H 2.62 H - Consult Information Warfarin Dosing Protocol: 76 y.o. Male with history of A. Fib. and chronic anticoagulation with warfarin. Home dose reported as Warfarin 2mg daily, except on Fridays takes 1mg. goal INR range= 2.0 to 3.0 Date INR dose 03/15 - 2 mg 03/16 2.18 2 mg 03/17 2.04 2 mg 03/18 2.00 2.5 mg 03/19 2.05 2.5 mg 03/20 2.09 2.5 mg 03/21 1.81 3 mg 03/22 1.88 3 mg 03/23 2.09 3 mg 03/24 2.35 3 mg 03/25 2.59 2.5 mg daily and INR's 03/27 2.62 2.5 mg 03/28 ---- 2.5 mg 2.08 2.62 Continue 2.5 mg daily and change INR's to [place], We I will continue the Warfarin 2.5 mg p.o. daily and will change the INR's to be drawn on , We. I will continue the warfarin dose and INR draws as currently ordered. The Pharmacy will continue to monitor and adjust the warfarin dose as needed. Thanks for Warfarin Protocol, Baudilio Blackmon, Pharmacist
--- NOTE | 2017-03-29 09:39 | Wound Care Progress Note ---
Wound Center Progress Note: Pt seen for wound follow up, pt's has questions regarding dressings for bilateral knees. Seen with Rosibel CHANG. Pt resting in bed, at bedside. Bilateral knees, bilateral posterior calves, back, heels, pannus, and under breasts wounds assessed and treated. 1) Back: Improved, Back has less open areas, scant sanguinous drainage. Periwound: blanchable erythema. Dressing: applied Cavilon and redressed with Press n Seal. 2) Bilateral heels: Stable. No drainage, blanchable erythema. Pt refuses foam boots, does not like the Mepilex dressings on heels, feels they roll up. Applied small foam protectors to bilateral heels. 3) Bilateral calves: Stable. Wound beds have slough and red non-granulating tissue, scant serosanguineous drainage. Periwound: blanchable erythema. Dressings: Aquacel Ag to wound bed, coverd with mepilex border dressing. Consult placed for Dr. Alvarado to evaluate wounds. 4) Under pannus/under bilateral breasts: Inadequately controlled. Intertriginous dermatitis, denudation, no drainage at this time, pain with examination. Dressings: Cavilon and folded sheets placed to separate skin folds. 5) Dressings to bilateral knees were not changed at this time. Discussed with and pt different wound dressing options for knees.
--- NOTE | 2017-03-29 10:01 | IRU Progress Note ---
- Subjective/Serverity of Illness Date: 03/29/17 Mr. Hutchinson was interviewed and examined in his room with his present. Also have reviewed the events of the last 24-48 hours with regard to his syncopal spell and subsequent workup. Even this morning he continues to be somewhat slow to respond. His attributes it to the use of oxycodone. They're willing to cut back and make it just as needed rather than regularly given. (Looks like it is being given just as needed. We will reduce it to 1 tablet instead of 2 tablets.) He is also on gabapentin which we have increased which may be a factor. Unfortunately his sodium remains low at 125 which could also contribute. Essentially, he had an episode of syncope while attempting to stand. Extensive workup was undertaken. I have personally reviewed the electrocardiogram demonstrating atrial fibrillation, chest x-ray demonstrating no acute findings and head CT scan which was negative. Troponin is negative 3. BNP is over 1000. Diuretics were held and he was given some intravenous fluids to improve intravascular volume. Blood pressure has been variable sometimes in the 90s. He does have evidence of edema in the thighs etc. but not really in the ankles at this time. Albumin is borderline low. Diuretics are still held although still on spironolactone. He reports that his appetite is good. He is having bowel movements. Brief therapy update: Progress is extremely slow. Cognition is a question at this time. Team meeting is today and we will have further input from a multidisciplinary standpoint. Update on medical issues were actively managing and monitoring as follows: 1. Disuse myopathy: Weakness and deconditioning continue to be ongoing issues. 2. Acute on chronic diastolic heart failure with preserved ejection fraction: BNP elevated, diuretics held due to hypotension. Albumin a bit low. Total body water is no doubt elevated although intravascularly he may be depleted. 3. Acute on chronic hypoxemic respiratory failure with requirement for oxygen supplementation: Continues to be on room air during the daytime. 4. Recent influenza A infection: I do not hear any wheezes at present. He does have a few rhonchi. He does have a cough with clear sputum. 5. Chronic kidney disease stage III: Unchanged based on creatinine and estimated GFR. 6. Hyponatremia, multifactorial: Sodium remains low at 125 although perhaps slightly improved. I imagine this does play a role in his responsiveness as well. 7. Chronic indwelling Sigala catheter secondary to chronic urinary urgency, frequency and incontinence with colonization but without active infection (no fever and no other symptoms): Catheter remains in place without evidence of active infection. 8. Chronic leg wounds/ulcerations: I have reviewed wound care notes and appreciate their input very much. There is some improvement. Clean his wounds on his back. 9. Atrial fibrillation: INR remains therapeutic, followed by pharmacy. 10. Multiple skin lesions including squamous cell carcinoma of left thomas, multiple apparent basal cell lesions and multiple decubitus lesions including both heels, low midline of his back. I have reviewed his wound care notes. Appreciate their input. Exam Vital Signs: Temperature 0.8 F L 03/28/17 22:37 Pulse Rate 78 03/28/17 22:37 Respiratory Rate 15 03/29/17 05:32 Blood Pressure 114/55 03/28/17 22:37 Pulse Oximetry 96 03/29/17 05:32 Height/Weight/BMI: Height 1.7 m Weight 130 kg Body Mass Index 45.0 - Constitutional Present: mild distress, well nourished, well developed, morbidly obese Comments: His answers are slow. This is been the case for a couple of days. - Routine HEENT Exam Head: Present: normocephalic Eye: Present: EOMI ENT: Present: mucous membranes moist, oropharynx clear - Routine Neck Exam Present: supple - Routine Respiratory Exam Present: CTA bilaterally, rhonchi, diminished air movement. Absent: wheezes, crackles - Routine Cardiovascular Exam Present: S1, S2, irregularly irregular. Absent: murmur - Routine Abdominal Exam Present: soft, normoactive bowel sounds, non distended. Absent: tenderness - Routine Extremities Exam Present: edema (edema primarily in calves and not in ankles.), tenderness - Routine Skin Exam Present: dry, warm, lesions, wounds - Routine Neurological Exam Present: alert, oriented X3, CN II-XII intact - Routine Psychiatric Exam Present: depressed. Absent: normal affect (somewhat slow to respond.) Results IRU - Labs Labs: I have reviewed extensive workup for his syncope as well as other providers notes and chart information. IRU A/P (1) Myopathy Current visit: Yes Status: Acute Severe muscle weakness and deconditioning continues to be an issue. (2) Influenza A Current visit: Yes Status: Resolved Has a residual cough and sputum production. Does not appear to be actively infected however. (3) Rheumatoid arthritis Qualifiers: Rheumatoid arthritis location: multiple sites Rheumatoid factor presence: unspecified presence Qualified Code(s): M06.9 - Rheumatoid arthritis, unspecified Current visit: Yes Status: Chronic (4) Atrial fibrillation, chronic Current visit: Yes Status: Chronic INR remains therapeutic. (5) (HFpEF) heart failure with preserved ejection fraction Current visit: Yes Status: Chronic BNP elevated. Please see previous discussion regarding diuretics. Appreciate hospitalists input and help. (6) CKD (chronic kidney disease) stage 3, GFR 30-59 ml/min Current visit: Yes Status: Chronic (7) Squamous cell skin cancer Current visit: Yes Status: Chronic (8) Chronic indwelling Sigala catheter Current visit: Yes Status: Chronic (9) Acute on chronic respiratory failure with hypoxemia Current visit: Yes Status: Acute (10) Acute bronchospasm Current visit: Yes Status: Resolved I no longer hear wheezes but does have some rhonchi. We will continue breathing treatments. (11) SONYA (obstructive sleep apnea) Current visit: Yes Status: Chronic (12) Slow transit constipation Current visit: Yes Status: Acute (13) Hyponatremia Current visit: Yes Status: Chronic Serum sodium remains low. Fluid restriction in place. Diuretics held. (14) Neuropathic pain of both legs Current visit: Yes Status: Chronic We will reduce the dose of gabapentin in case this is making him less able to respond. (15) Syncope Qualifiers: Syncope type: unspecified Qualified Code(s): R55 - Syncope and collapse Current visit: Yes Status: Acute Has had a couple of episodes of syncope. Likely this is related to hypotension related to intravascular volume depletion. Appreciate hospitalists input and management. DVT Prophylaxis: Coumadin Resuscitation Status: Do Not Resuscitate - Course Hospital Course: Pedro Pittman MD: 03/16/17 12:11 Multiple medical problems as outlined. Severe weakness noted. Just getting started with therapies. 03/19/17 12:04 Patient is cooperative and participates with therapy although progress is quite slow. Continues to have expiratory wheezes. He is afebrile. Numerous skin lesions identified. would like to have lidocaine used for dressing removal. I will discuss with wound care. 03/20/17 10:44 Multiple skin lesions will require continued meticulous nursing management. Medically he seems stable. Lungs are clear. INR is therapeutic. He is participating with therapy. 03/22/17 11:35 Slow progression with therapy. Multiple skin lesions noted and being monitored by nursing including wound care nurse. INR subtherapeutic. 03/23/17 11:46 Slow progress with therapy. INR therapeutic. Complains of constipation. 03/26/17 14:53 Progress continues to be slow. Sodium down to 126. Weight was up to 133 and now down to 130 kg. Easy fatigability and continued evidence of critical illness/disuse myopathy. 03/27/17 10:30 Sodium down to 124. He is overdrinking fluids and he was advised not to do that. Now on a fluid restriction. Complains of pain in the right leg heel pad area but also throughout the leg. We will modify the gabapentin dose. 03/29/17 10:09 Patient remains very complex. Diuretics held. Sodium still low 125. Syncope yesterday. Somewhat slow to respond. We will reduce gabapentin. - Interventions to Obtain Goals PT Treatment Plan: Balance/Proprioception, Functional Activities, Gait Training , Patient/Family Education, Therapeutic Exercise OT Treatment Plan: ADL (Basic Care), Balance Training, Pt./Family Education, Ther. Exercise for ADL Goals Progress/Modifications: Time spent with patient and on floor reviewing data and documentin min Barriers to dismissal: Weakness, endurance, cognition, strength Medical decision-making: Etiology of his syncope is not clear but likely related to orthostatic hypotension related to intravascular fluid depletion. Diuretics have been held with the exception of spironolactone. Appreciate hospitalists input. Does not feel lightheaded this morning. However, he is slow to respond and I will cut back on the gabapentin as well as cut back on oxycodone. Unclear if he is making a lot of progress and we will discuss this more from a multidisciplinary team perspective later on today. Does have borderline blood pressures from time to time. Wounds seem to be coming along reasonably well although they are multiple and require intensive monitoring and care.
[2017-03-29] MEDS: FERROUS SULFATE 324 MG TABLET PO SCH (10:03)
[2017-03-29] MEDS: LACTOBACILLUS (15B cfu) CAPSULE PO SCH (10:04)
[2017-03-29] MEDS: PredniSONE 20 MG TABLET PO SCH (10:04)
[2017-03-29] MEDS: ASCORBIC ACID 500 MG TABLET PO SCH (10:05)
[2017-03-29] MEDS: COENZYME Q-10 200mg TABLET PO SCH (10:05)
[2017-03-29] MEDS: ESCITALOPRAM 20 MG TABLET PO SCH (10:05)
[2017-03-29] MEDS: GUAIFENESIN 400MG TABLET PO SCH ×4 (10:06→22:26)
[2017-03-29] MEDS: NYSTATIN OINTMENT 15gm TP SCH ×2 (10:06→18:18)
[2017-03-29] MEDS: SIMETHICONE 80 MG CHEWABLE TABLET PO SCH ×4 (10:06→22:27)
[2017-03-29] MEDS: NYSTATIN 500,000 units/5 ml ORAL LIQUID PO SCH ×4 (10:06→22:26)
[2017-03-29] MEDS: SPIRONOLACTONE 50 MG TABLET PO SCH ×2 (10:06→22:27)
[2017-03-29] MEDS: SENNA + DOCUSATE TABLET PO SCH ×2 (10:09→22:26)
--- NOTE | 2017-03-29 11:10 | General Surgery Consult Note ---
Consult date: 03/29/17 Attending Physician: Pedro Pittman MD Reason for consult: wound care [facility] Patient Stated Medical History Cataracts Yes Dental Problems Yes: DENTURES Hearing Loss Yes Cardiac Arrhythmia Yes: A FIB Chronic Obstructive Pulmonary Yes Disease (COPD) Sleep Apnea Yes: CPAP Constipation Yes Obstructive Bowel Yes: 2016 Ulcer Yes Other GI Yes: HERNIA MESH Hx Benign Prostatic Yes Hyperplasia Hx Urinary Tract Infection Yes: RECENT Other Yes: CHRONIC CHOWDHURY Anemia Yes Osteoarthritis Yes: RHEUMATOID ARTHRITIS Cellulitis Yes MRSA Yes Sepsis Yes Vancomycin-Resistant Yes Enterococci Depression Yes Surgical History: Umbilical Herniorrhaphy with mesh placement. Subsequent bowel obstruction and exploration with removal of mesh and 9 inches of colon. Removal of "gallstone" without cholecystectomy, by report. Multiple skin cancers removed. Implanted neurostimulator in back- currently off, battery patient does not want this replaced Family History: Mother from rheumatoid arthritis in her 40s. Father of stroke uncertain age. Family history positive for pulmonary embolism. - Social History Smoking status: Former smoker (quit 1971) Alcohol intake frequency: does not drink Household members: spouse Current residence: Apartment/Private Home Medications Home Medications Medication Instructions Recorded Confirmed Type Ascorbic Acid 500 mg PO DAILY 03/15/17 03/15/17 History Calcium Carb, Cit/Magnesium Ox 1 each PO NOON 03/15/17 03/15/17 History [Calmag Thins Tablet] Cholecalciferol (Vitamin D3) 1 tab PO DAILY 03/15/17 03/15/17 History [Vitamin D3] Escitalopram Oxalate [Lexapro] 20 mg PO DAILY 03/15/17 03/15/17 History Ferrous Sulfate 325 mg PO DAILY 03/15/17 03/15/17 History Furosemide [Lasix] 1 tab PO DAILY 03/15/17 03/15/17 History Gabapentin 300 mg PO TID 03/15/17 03/15/17 History Gabapentin [Neurontin] 1 cap PO HS 03/15/17 03/15/17 History Lactobacillus Acidophilus 2 each PO DAILY 03/15/17 03/15/17 History [Acidophilus Lactobacilli] Magnesium Glycinate [Mag Glycinate] 200 mg PO DAILY 03/15/17 03/15/17 History Metolazone [Zaroxolyn] 5 mg PO DAILY 03/15/17 03/15/17 History Metoprolol Tartrate [Lopressor] 25 mg PO BIDWM 03/15/17 03/15/17 History Nystatin Oral Liq. [Mycostatin] 5 ml PO QID 03/15/17 03/15/17 History Oxycodone HCl [Oxaydo] 5 mg PO Q5HR PRN 03/15/17 03/15/17 History PEG 3350 17gm PACKET [Miralax] 17 gm PO DAILY 03/15/17 03/15/17 History Pantoprazole Tab [Protonix Tab] 1 tab PO ACB 03/15/17 03/15/17 History Potassium Chloride [K-DUR 20 mEq 1 tab PO BID 03/15/17 03/15/17 History Tablet] PredniSONE [Deltasone] 20 mg PO WB 03/15/17 03/15/17 History Senna + Docusate [Senna Plus 2 tab PO BID 03/15/17 03/15/17 History Tablet] Simethicone [Mylicon] 80 mg PO DAILY PRN 03/15/17 03/15/17 History Spironolactone [Aldactone] 50 mg PO BID 03/15/17 03/15/17 History Ubidecarenone [Co Q10] 1 cap PO DAILY 03/15/17 03/15/17 History Warfarin Sodium [Coumadin] 1 mg PO 03/15/17 History Warfarin [Coumadin] 2 mg PO 1700 03/15/17 03/15/17 History Allergies Allergy/AdvReac Type Severity Reaction Status Date / Time hydroxychloroquine Allergy Severe sores on Verified 03/15/17 18:13 legs, feet, mouth Iodine and Iodide Containing Allergy Severe throat Verified 03/15/17 18:13 Produc started to close influenza virus vaccine, Allergy Intermediate sick for 3 Verified 03/15/17 18:13 specific months silver Allergy Intermediate breaks out, Verified 03/15/17 18:13 sulfasalazine Allergy Intermediate caused afib Verified 03/15/17 18:13 vancomycin Allergy Intermediate Rash Verified 03/15/17 18:13 zinc oxide Allergy Intermediate Rash Verified 03/15/17 18:13 amoxicillin Allergy Mild leg Verified 03/15/17 18:13 swelling tobramycin Allergy Mild facial Verified 03/15/17 18:13 edema, elevated HR, SOB cephalexin Allergy Unknown short of Verified 03/15/17 18:13 breath, rash ciprofloxacin Allergy Unknown short of Verified 03/15/17 18:13 breath, joints ache clavulanic acid Allergy Unknown leg Verified 03/15/17 18:13 swelling dronedarone Allergy Unknown Verified 03/15/17 18:13 famotidine Allergy Unknown Joint Pain Verified 03/15/17 18:13 Penicillins Allergy short of Verified 03/15/17 18:13 breath, brain fog, leg swelling methotrexate AdvReac Severe skin Verified 03/15/17 18:13 cancers alginate dressing AdvReac Mild feels like Verified 03/15/17 18:13 on fire acetaminophen AdvReac Unknown liver Verified 03/15/17 18:13 failure collagen firocol AdvReac Mild juan Uncoded 03/15/17 18:13 Review of Systems 10-point ROS: negative except for HPI and the following: - General General: Present: other (multiple wounds) - Cardiovascular Cardiovascular: Present: irregular heart beat - Respiratory Respiratory: Present: cough, sleep apnea, use of CPAP - Genitourinary Additional comments: prison Chowdhury - Musculoskeletal Musculoskeletal: Present: back pain, joint pain - Neurological Neurological: Present: muscle weakness - Hematologic/Lymphatic Hematologic/Lymphatic: Present: easy bruising, use of blood thinners - Vital Signs Last Vital Signs Temp 97.9 F 03/29/17 08:00 Pulse 79 03/29/17 08:00 Resp 20 03/29/17 08:00 BP 127/67 03/29/17 08:00 Pulse Ox 98 03/29/17 08:00 - Laboratory Result Diagrams: 03/29/17 04:30 03/29/17 04:30 General Surgery Results - Results Labs: 03/29/17 04:30 03/29/17 04:30 Hospital Course Summary Disclaimer: The visit summary below is not to be considered part of the above Progress Note. Hospital Course: Plan Agree with admission to inpatient rehabilitation unit under the care of Dr. Pittman for significant myopathy and weakness secondary to recent acute hospitalization and illness. Patient does have a very complex past medical history and current chronic comorbidities. Appreciate hospitalist consultation for assistance in medical management. Consultation placed with the wound care team for evaluation and recommendations of ongoing wound care. Left leg squamous cell carcinoma-stable. Patient scheduled to follow with radiation oncology once medically improved. does report that she would like to use her homemade "save" which contains eggplant an essential oil. Consult to pharmacy for ongoing management of INR and Coumadin dosing. Patient has known positive urine culture for VRE. Will forego any treatment. Given chronic colonization of indwelling Chowdhury catheter Patient does wish to be a full code and this orders written. Appreciate medical consultation, the hospitalist services will continue to follow patient medically manage his existing comorbidities during his stay on IRU unit. At time of discharge his medical care will return to his primary care provider in Dr. Doug Ang in [place] 03/18/17 Give additional Lasix 40 mg PO now; start daily weights. Sounds like he has a hx of flash pulmonary edema; reports he was previously on Lasix TID then was decreased to BID -- monitor fluid status closely as we may need to provide extra diuresis periodically versus adding another dose in the afternoon. Will recheck BMP in am. Change dosing of gabapentin to 300 mg TID and 300 mg at 0200, per 's request. Increase simethicone to home dosing schedule. Resume levothyroxine 50 mcg -- he took this in [place]. Consider wound consultation. Suspect mild leukocytosis is chronic given prednisone use though will recheck CBC in am to document stability. INR is therapeutic. 03/20/17 Na decreased to 125 but exam suggests fluid positive state. Will increase Lasix to 60 mg BID, starting this afternoon. Will resume spironolactone. Wait on resuming KDur since K was still elevated at 4.8 but we may need to resume K soon. Renal status stable Rn to call wound team regarding excoriation under left breast. INR is therapeutic; high risk medication in use. Encourage PT/OT/activity as siva. Discussed with Dr. Pittman and with Dr. Ruvalcaba. 2/2 Given increased edema and increase in weight. We will give an additional 40 milligrams of Lasix both this evening and tomorrow evening. Recheck BMP tomorrow morning to follow electrolytes and renal function. Patient may need additional testing supplementation. Discussed importance of bowel motivation. Continue on current regimen Oral Dulcolax, Colace, senna plus, MiraLAX, milk of magnesia. Did also add Dulcolax suppository and encouraged nursing to try a brown cow. Recommend using suppository. By this evening if no bowel movements. This will also help with fluid retention and edema. Otherwise doing well. 2/3 His wt is up 6kg since yesterday which is likely an error. Clinically this does not appear to be the case. He is difficult to weigh. Will reweigh in the am. Will cancel the extra dose of Lasix as ordered this evening given his drop in sodium. His urine is dark, breathing is ok and swelling is less. Likely doesn't need further diuresis. Sodium down to 126 from 132 yesterday. Will continue to follow. Case discussed with Dr. Thomas. 03/27 Sodium is again down to 124. Nursing staff does report patient drinks "numerous pitchers of water a day". This is likely attributing to hyponatremia. Weight yesterday at baseline admission weight. Continue to watch daily weights Will decrease second Lasix dose to 40mg at 1400 and continue with 60 mg in the am 03/28 Recurrent syncope -- check EKG, trop x3, CT head, CXR Acute encephalopathy -- poss r/t hyponatremia; Na down to 123 today ? intervascularly dry Hold Lasix this afternoon. Hold metolazone. Give NS 500 mL IVF today. Cont wound care -- asks about dsg options other than Mepilex EKG personally reviewed: A-fib with controlled rate; No ST elevation/depression ; RBBB; +Q wave lat leads CXR personally reviewed: no pulmonary congestion/infiltrate Trop #1 = 0.[address] pending.
--- NOTE | 2017-03-29 11:55 | Progress Note ---
- Date 03/29/17 Subjective: Devendra was in his wheelchair, heading down to therapy room. He was more alert and quicker to respond. He denied any new complaints ie SOA or chest pain. He is still very weak. His indicated that his fluid balance seemed ok at the moment. She also reports that they've adjusted his pain meds including percocet and gabapentin doses b/c she thinks that he might have been taking these too frequently, which made him groggy and confused. Objective Vital signs: Temperature 97.9 F 03/29/17 08:00 Pulse Rate 79 03/29/17 08:00 Respiratory Rate 20 03/29/17 08:00 Blood Pressure 127/67 03/29/17 08:00 Pulse Oximetry 98 03/29/17 08:00 Height/Weight/BMI: Height 1.7 m Weight 130 kg Body Mass Index 45.0 - Constitutional Present: no acute distress, well nourished, well developed, morbidly obese - Routine HEENT Exam Head: Present: normocephalic Eye: Present: PERRL. Absent: conjunctival icterus, scleral injection ENT: Present: mucous membranes moist - Routine Respiratory Exam Present: decreased breath sounds - Routine Cardiovascular Exam Present: S1, S2, irregularly irregular - Routine Abdominal Exam Present: non tender, distended - Routine Extremities Exam Present: edema (1-2+ thighs/lower abd) - Routine Skin Exam Present: dry, warm, lesions - Routine Neurological Exam Present: alert, oriented X3, normal speech - Routine Psychiatric Exam Present: normal affect, normal thought process, cooperative Results - Labs CBC & Chem 7: 03/29/17 04:30 03/29/17 04:30 Assessment and Plan (1) Myopathy Current visit: Yes Status: Acute (2) Squamous cell skin cancer Current visit: Yes Status: Chronic (3) Acute on chronic respiratory failure with hypoxemia Current visit: Yes Status: Acute Assessment and Plan: Impression Syncope, recurrent and chronic: workup negative Acute encephalopathy - improved Generalized Myopathy Skin lesions consistent with basal cell and squamous cell carcinoma Recent influenza A with continued hypoxia. Hyponatremia, chronic Intertriginous dermatitis Chronic atrial fibrillation Congestive heart failure. 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 Hypertension AAA Coronary artery disease Peripheral vascular disease Hypothyroidism - resumed levothyroxine on 03/18/17 history of asthma history of seizures Plan Encephalopathy is better today. Na still low but increased to 125 after fluid bolus yesterday/holding diuretics. He had Lasix this morning but will hold the rest of his diuretics today. Recheck BMP/mg in am to re-eval electrolytes/renal function and possibly resume diuretics. I did reach Dr. Ang yesterday, who reported that Devendra was on Spironolactone 25 mg BID, metolazone 5 mg daily, and Lasix [address] at [facility] in [place]. Movantik started for opioid induced constipation Oxycodone and gabapentin doses reduced today per Dr. Pittman. IRU team meeting planned this afternoon to discuss discharge plans. Continue wound care. Resuscitation Status: Do Not Resuscitate - Physician Narrative Narrative: Date: 03/29/17 Time: 1152 Hospital Course Summary Disclaimer: The visit summary below is not to be considered part of the above Progress Note. Hospital Course: Plan Agree with admission to inpatient rehabilitation unit under the care of Dr. Pittman for significant myopathy and weakness secondary to recent acute hospitalization and illness. Patient does have a very complex past medical history and current chronic comorbidities. Appreciate hospitalist consultation for assistance in medical management. Consultation placed with the wound care team for evaluation and recommendations of ongoing wound care. Left leg squamous cell carcinoma-stable. Patient scheduled to follow with radiation oncology once medically improved. does report that she would like to use her homemade "save" which contains eggplant an essential oil. Consult to pharmacy for ongoing management of INR and Coumadin dosing. Patient has known positive urine culture for VRE. Will forego any treatment. Given chronic colonization of indwelling Sigala catheter Patient does wish to be a full code and this orders written. Appreciate medical consultation, the hospitalist services will continue to follow patient medically manage his existing comorbidities during his stay on IRU unit. At time of discharge his medical care will return to his primary care provider in Dr. Doug Ang in [place] 03/18/17 Give additional Lasix 40 mg PO now; start daily weights. Sounds like he has a hx of flash pulmonary edema; reports he was previously on Lasix TID then was decreased to BID -- monitor fluid status closely as we may need to provide extra diuresis periodically versus adding another dose in the afternoon. Will recheck BMP in am. Change dosing of gabapentin to 300 mg TID and 300 mg at 0200, per 's request. Increase simethicone to home dosing schedule. Resume levothyroxine 50 mcg -- he took this in [place]. Consider wound consultation. Suspect mild leukocytosis is chronic given prednisone use though will recheck CBC in am to document stability. INR is therapeutic. 03/20/17 Na decreased to 125 but exam suggests fluid positive state. Will increase Lasix to 60 mg BID, starting this afternoon. Will resume spironolactone. Wait on resuming KDur since K was still elevated at 4.8 but we may need to resume K soon. Renal status stable Rn to call wound team regarding excoriation under left breast. INR is therapeutic; high risk medication in use. Encourage PT/OT/activity as siva. Discussed with Dr. Pittman and with Dr. Ruvalcaba. 2/ Given increased edema and increase in weight. We will give an additional 40 milligrams of Lasix both this evening and tomorrow evening. Recheck BMP tomorrow morning to follow electrolytes and renal function. Patient may need additional testing supplementation. Discussed importance of bowel motivation. Continue on current regimen Oral Dulcolax, Colace, senna plus, MiraLAX, milk of magnesia. Did also add Dulcolax suppository and encouraged nursing to try a brown cow. Recommend using suppository. By this evening if no bowel movements. This will also help with fluid retention and edema. Otherwise doing well. 2/3 His wt is up 6kg since yesterday which is likely an error. Clinically this does not appear to be the case. He is difficult to weigh. Will reweigh in the am. Will cancel the extra dose of Lasix as ordered this evening given his drop in sodium. His urine is dark, breathing is ok and swelling is less. Likely doesn't need further diuresis. Sodium down to 126 from 132 yesterday. Will continue to follow. Case discussed with Dr. Thomas. 03/27 Sodium is again down to 124. Nursing staff does report patient drinks "numerous pitchers of water a day". This is likely attributing to hyponatremia. Weight yesterday at baseline admission weight. Continue to watch daily weights Will decrease second Lasix dose to 40mg at 1400 and continue with 60 mg in the am 03/28 Recurrent syncope -- check EKG, trop x3, CT head, CXR Acute encephalopathy -- poss r/t hyponatremia; Na down to 123 today ? intervascularly dry Hold Lasix this afternoon. Hold metolazone. Give NS 500 mL IVF today. Cont wound care -- asks about dsg options other than Mepilex EKG personally reviewed: A-fib with controlled rate; No ST elevation/depression ; RBBB; +Q wave lat leads CXR personally reviewed: no pulmonary congestion/infiltrate Trop #1 = 0.[address] pending. I spoke with Dr. Ang from [place]. During his 90+ day SNF stay he showed only minimal improvement in functional status. He tends to run about 128-130 on sodium level, with elevated bicarb as well. He has had several syncopal episodes during his SNF stay. Diuretics at time of dc were: Spironolactone 25 mg BID, metolazone 5 mg daily, and Lasix [address] Ang noted anasarca while at [facility]. LTC placement was recommended but pt/ declined. 03/29 Encephalopathy is better today. Na still low but increased to 125 after fluid bolus yesterday/holding diuretics. He had Lasix this morning but will hold the rest of his diuretics today. Recheck BMP/mg in am to re-eval electrolytes/renal function and possibly resume diuretics. I did reach Dr. Ang yesterday, who reported that Devendra was on Spironolactone 25 mg BID, metolazone 5 mg daily, and Lasix 80 [address] [facility] in [place]. Oxycodone and gabapentin doses reduced today per Dr. Pittman. Chevyantik started for opioid induced constipation IRU team meeting planned this afternoon to discuss discharge plans.
[2017-03-29] MEDS: CALCIUM CARBONATE Chewable 500mg TABLET PO SCH (12:36)
[2017-03-29] MEDS: WARFARIN 2.5 MG TABLET PO SCH (12:37)
[2017-03-29] MEDS: ACETAMINOPHEN 325 MG TABLET PO PRN (14:17)
--- NOTE | 2017-03-29 14:34 | IRU Team Meeting ---
IRU Team Meeting - Nursing Bladder Assistive Devices Utilized:: Catheter Bladder Management Level of Assist: Total Assistance Bladder Frequency of Accidents: No accidents Bowel Assistive Devices Utilized:: Medication, Bedpan Bowel Management Level of Assist: Modified Independent Bowel Frequency of Accidents: 1 accident this shift Vital Signs: Vital Signs - 24 hr 03/28/17 16:00 03/28/17 16:55 03/28/17 21:02 Temperature 97.6 F Pulse Rate 74 Respiratory Rate 16 20 19 Blood Pressure 98/48 Pulse Oximetry 93 03/28/17 22:37 03/29/17 03:20 03/29/17 05:32 Temperature 0.8 F L Pulse Rate 78 Respiratory Rate 16 18 15 Blood Pressure 114/55 Pulse Oximetry 93 95 96 03/29/17 08:00 03/29/17 13:24 Temperature 97.9 F Pulse Rate 79 Respiratory Rate 20 24 Blood Pressure 127/67 Pulse Oximetry 98 95 Current Medications: Acetaminophen (Tylenol) 650 mg PO Q6H PRN PRN Reason: Pain Last Admin: 03/29/17 14:17 Dose: 650 mg Albuterol Sulfate (Proventil Neb (0.5%)) 2.5 mg AEROSOL RTQID [facility] Last Admin: 03/29/17 13:21 Dose: 2.5 mg Albuterol Sulfate (Proventil Neb (0.083%)) 2.5 mg AEROSOL Q2H PRN Last Admin: 03/29/17 03:20 Dose: 2.5 mg Ascorbic Acid (Vitamin C) 500 mg PO DAILY [facility] Last Admin: 03/29/17 10:05 Dose: 500 mg Bisacodyl (Dulcolax) 10 mg PO DAILY PRN PRN Reason: Constipation Bisacodyl (Dulcolax) 10 mg RECTALLY DAILY PRN PRN Reason: Constipation Calcium Carbonate (Tums) 500 mg PO NOON [facility] Last Admin: 03/29/17 12:36 Dose: 500 mg Cholecalciferol (Vit. D-3) 1,000 unit PO DAILY [facility] Last Admin: 03/29/17 10:05 Dose: 1,000 unit Coenzyme Q10 (Co Q-10) 200 mg PO DAILY [facility] Last Admin: 03/29/17 10:05 Dose: 200 mg Escitalopram Oxalate (Lexapro) 20 mg PO DAILY [facility] Last Admin: 03/29/17 10:05 Dose: 20 mg Ferrous Sulfate (Feosol) 324 mg PO [facility] Last Admin: 03/29/17 10:03 Dose: 324 mg Furosemide (Lasix) 40 mg PO DAILY@1400 [facility] Last Admin: 03/27/17 14:20 Dose: 40 mg Furosemide (Lasix) 60 mg PO DAILY@0700 [facility] Last Admin: 03/29/17 07:00 Dose: 60 mg Gabapentin (Neurontin) 300 mg PO DAILY@0200 [facility] Last Admin: 03/29/17 02:15 Dose: 300 mg Gabapentin (Neurontin) 300 mg PO DAILY [facility] Gabapentin (Neurontin) 300 mg PO [facility] Guaifenesin (Mucinex) 400 mg PO QID [facility] Last Admin: 03/29/17 12:37 Dose: 400 mg Lactobacillus Acidophilus (Culturelle) 2 cap PO [facility] Last Admin: 03/29/17 10:04 Dose: 2 cap Levothyroxine Sodium (Synthroid) 50 mcg PO ACB [facility] Last Admin: 03/29/17 06:58 Dose: 50 mcg Magnesium Hydroxide (Mom) 30 ml PO DAILY PRN PRN Reason: Constipation Last Admin: 03/23/17 16:21 Dose: 30 ml Metolazone (Zaroxolyn) 5 mg PO DAILY [facility] Last Admin: 03/28/17 09:24 Dose: 5 mg Metoprolol Tartrate (Lopressor) 25 mg PO BIDWM [facility] Last Admin: 03/29/17 10:04 Dose: 25 mg Naloxegol (Movantik) 12.5 mg PO ACB [facility] Last Admin: 03/29/17 06:58 Dose: 12.5 mg Nystatin (Mycostatin) 5 ml PO QID [facility] Last Admin: 03/29/17 12:35 Dose: 5 ml Nystatin (Mycostatin) 1 applic TP TID [facility] Last Admin: 03/29/17 10:06 Dose: 1 applic Oxycodone HCl (Roxicodone *Ir*) 5 mg PO Q4H PRN PRN Reason: Pain Last Admin: 03/29/17 12:36 Dose: 5 mg Pantoprazole Sodium (Protonix Tab) 40 mg PO ACB [facility] Last Admin: 03/29/17 06:59 Dose: 40 mg Polyethylene Glycol (Miralax) 17 gm PO DAILY PRN Last Admin: 03/26/17 22:04 Dose: 17 gm Potassium Chloride (K-Dur 20 Meq Tablet) 20 meq PO BIDWM [facility] Last Admin: 03/19/17 08:14 Dose: 20 meq Prednisone (Deltasone) 20 mg PO WB [facility] Last Admin: 03/29/17 10:04 Dose: 20 mg Senna/Docusate Sodium (Senna Plus Tablet) 2 tab PO BID [facility] Last Admin: 03/29/17 10:09 Dose: 2 tab Simethicone (Mylicon) 80 mg PO PCHS [facility] Last Admin: 03/29/17 12:37 Dose: 80 mg Sodium Chloride (Deep Sea Nasal Moisturizing [place]) 1 spray EA NOSTRIL PRN PRN PRN Reason: Congestion Spironolactone (Aldactone) 50 mg PO BID [facility] Last Admin: 03/29/17 10:06 Dose: 50 mg Warfarin Sodium (Coumadin Protocol) 0 [facility] NOTE SHIKHA Warfarin Sodium (Coumadin) 2.5 mg PO NOON [facility] Last Admin: 03/29/17 12:37 Dose: 2.5 mg Current Medical Issues: Cough with sputum, obstructive sleep apnea, multiple wounds and skin lesions, hyponatremia Comments: I certify that I personally led the interdisciplinary team meeting and agree with comments, barriers and goals indicated. Team meeting was held in the patient's room with the patient and the following family members present: patient's spouse Kristin Mr. Hutchinson continues to have hyponatremia likely multifactorial and related to his diuretic use as well as previous excess oral intake. In addition he has been somewhat more slow to respond. Gabapentin had been increased per request due to neuropathic pain in the legs. It is now been decreased. In addition his oxycodone is been decreased. The patient continues to struggle with multiple skin lesions and wounds. Wound care has followed the patient closely and monitor these. He is using his BiPAP at night. - Physical Therapy Bed, Chair, Wheelchair Transfer Assist: Total Assistance, 2 or More Person Assist Ambulation Ability: Patient Unsafe/Unable Ambulation Distance: 3 Wheelchair Propulsion Ability: Total Assistance Wheelchair Propulsion Distance: 10 Stair Climbing Ability: Patient Unsafe/Unable Car Transfer Ability: Patient Unsafe/Unable Comments: Multiple devices have been attempted to assist with his transfers out of bed to reduce energy expenditure. Unfortunately he is unable to advance his lower extremity strength and attempts at gait training. He is unable to progress at this time. - Occupational Therapy Eating Ability: Stand By Assist/Supervision Grooming Ability: Minimal Assistance Bathing Ability: Total Assistance, 2 or More Person Assist Upper Body Dressing Ability: Moderate Assistance Lower Body Dressing Ability: Total Assistance Tub Transfer Assist: Patient Unsafe/Unable Toileting Assist: Total Assistance Toilet Transfer Assist: Total Assistance, 2 or More Person Assist Comments: He is very cooperative with occupational therapy but continues to require maximum to total assistance for all transfers and for sit to stand. There is some fluctuation with participation secondary to pain, fatigue and cognition as well as alertness. He has not made significant progress. - Goals Physical Therapy Goals: 03/22/17 Goals: 1.) Walk 5 feet with walker - not met. 2.) Moderate assist with sit to stand transfer - not met. 3.) Proper hand placement with stand to sit transfer 100% of the time. - not met. 03/29/17 Goals : Continue above. Occupational Therapy Goals: OT goals 03/22/17: 1.) Pt. to demonstrate transfer to [facility] with moderate assist. - continue (total assist required). 2.) Pt. to perform lower body dressing with moderate assist. - continue (total assist required). 3.) Pt. to perform upper body dressing with set-up assist. - continue (moderate assist required) - Barriers to Discharge Barriers to Attaining Goals: Weakness (despite multiple attempts at assistance with transfers etc. patient continues to demonstrate significant weakness.), Endurance (efforts at improving lower extremity and upper extremity strength have been ongoing but have had variable results.), Pain Control (attempts have been made to adjust his doses of gabapentin to avoid oversedation but yet to provide adequate pain control.), Medical Limitation (atrial fibrillation, dyspnea, skin integrity are all being addressed with medications and close nursing monitoring.) - Care Plan Anticipated Length of Stay (days): 1 Anticipated Length of Stay: Reassess in one week Anticipated DC Destination: [facility]Facility I have led this team conference and agree with the plan. Interventions/Goals: The patient has not been able to demonstrate significant functional improvement. He continues to be very weak. We are not aware of any medical items that can be remedied to improve this at the present time. It is my opinion that the patient has had a severe setback secondary to influenza A and he is very debilitated from that, superimposed upon his chronic illness of rheumatoid arthritis, chronic corticosteroid therapy etc. 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 At this point he does not appear to be appropriate for acute inpatient rehabilitation and efforts will be undertaken to find alternative placement for him. It is possible that he will recover in the future the farther he gets away from influenza A and that further therapy might be an option at that time.
--- NOTE | 2017-03-29 18:06 | Consultation ---
DATE OF CONSULTATION 03/29/2017 FINDINGS Mr. Hutchinson is a 76-year-old gentleman whom I was asked to see today as a result of numerous chronic wounds. The patient does have a significant past medical history. He does have a longstanding history for atrial fibrillation, chronic diastolic heart failure, chronic hypoxemic respiratory failure which recently was exacerbated as a result of influenza A, chronic kidney disease, history for rheumatoid arthritis, history for numerous skin malignancies. The patient recently had the misfortune of developing influenza A and with his significant medical comorbidities became quite deconditioned. He was admitted to our inpatient rehab unit for strengthening conditioning. Consult was put forth to our wound center as a result of his numerous wounds. The patient's was present and did provide a fair amount of the patient's clinical history. Additional clinical history was also obtained from reviewing his chart. The patient this afternoon was in no apparent distress. PAST MEDICAL HISTORY, PAST SURGICAL HISTORY, MEDICATIONS, ALLERGIES SOCIAL HISTORY, FAMILY HISTORY, REVIEW OF SYSTEMS Performed by my nurse practitioner, Sidney Pearson APRN. PHYSICAL EXAMINATION GENERAL: Mr. Hutchinson is a 76-year-old gentleman who did not appear to be any acute distress this afternoon. VITAL SIGNS: Temperature 97.9, pulse 79, respirations 16, blood pressure 127/67, SAO2 95% on room air. HEENT: The patient had numerous dry eschars upon his face, most likely a result of his known multiple malignancies. There were no open wounds that I could visualize upon his face. Pupils were equal, round to light and accommodation. CHEST: Visualization of the chest also revealed numerous ulcerated lesions which contained dry eschars upon the anterior chest region. ABDOMEN: Patient also had numerous dry eschars upon his anterior abdominal wall consistent with probable malignancies. No open wounds were present initially upon visualization. The patient is morbidly obese and does have a large pannus. Pannus was lifted in a cephalad fashion and one can see a "tear" which is full-thickness in nature beneath the right side of his pannus. This linear tear is likely on the order about 8 cm in length and extends into the underlying subcutaneous tissues. There is no surrounding marked erythema. There is also a similar linear tear, but not to the same extent, involving the left side beneath his pannus. This linear tear does not appear to be full thickness and the underlying dermis is intact. Linear tear is about 4-to 5 cm in length. BACK: The patient was logrolled to his right. The patient does have a couple of ulcerations of the skin. Appears to be more of a denuding of the skin than that of a true pressure ulceration. There is a denuded portion that is on the order of 3-4 cm in diameter involving the left scapular region. There is a smaller similar area within the right mid back. BUTTOCKS: The patient did have a moderate amount of erythema surrounding the perianal region consistent with incontinence-associated dermatitis. No pressure ulcerations were noted overlying the greater trochar region nor upon the buttocks itself. EXTREMITIES: Patient had an apparent skin tear involving the right forearm region. There was a Tegaderm dressing in place overlying this skin tear. Underlying dermis appeared to be intact. Skin tear itself was about 2 cm in diameter. Attention was then focused to his lower extremities. The patient has a large obvious skin malignancy involving the left anterior tibial region. This was quite malodorous in nature. The wound itself was perhaps 8-10 cm in diameter and is exophytic in nature. There is no necrotic material involving this obvious malignancy. The patient also has an ulcerated lesion involving the left posterior calf region. There was Aquacel overlying the ulcerated area. Aquacel was removed and one can see some minimal bioburden material within the ulcer itself. The ulcer upon the left posterior calf was perhaps 3 cm in diameter. No xiomara necrotic tissue was present. Attention was focused to his right lower extremity. Patient also had a couple of ulcerated lesions involving the right knee region and right anterior tibial region. Once again there was some bioburden-like material overlying these areas of ulceration but no xiomara necrotic tissue was present. ASSESSMENT 76-year-old gentleman with multiple medical comorbidities who has numerous known skin malignancies which are ulcerated and open in nature. Patient also with some associated skin tears. Patient's epidermis is quite thin most likely as a result of his long-term steroid/prednisone use. No need for surgical intervention/debridement this time. PLAN From a wound care standpoint/surgical standpoint, at this time I would not recommend any need for excisional surgical debridement. Would continue to utilize Iodosorb as an enzymatic debrider on the wounds which do contain some bioburden-like material. Continue to utilize dressings such as Tegaderm or a DuoDERM overlying the areas of skin tears. Continue to utilize that nystatin ointment/powder beneath breast and inguinal regions. Continue to utilize plain Aquacel and secondary foam dressings. MTDD
[2017-03-29] MEDS ORDERED: GABAPENTIN 300 MG CAPSULE PO SCH (21:00)
[2017-03-30] MEDS: NYSTATIN OINTMENT 15gm TP SCH ×2 (02:14→08:35)
[2017-03-30] MEDS: GABAPENTIN 300 MG CAPSULE PO SCH (02:25)
[2017-03-30] MEDS: SALINE FLUSH 10ml SYRINGE IV PRN ×2 (05:52→08:31)
[2017-03-30] MEDS: NALOXEGOL 12.5 MG TABLET PO SCH (06:35)
[2017-03-30] MEDS: LEVOTHYROXINE 50 MCG TABLET PO SCH (06:35)
[2017-03-30] MEDS: PANTOPRAZOLE 40 MG TABLET PO SCH (06:35)
[2017-03-30] MEDS: FERROUS SULFATE 324 MG TABLET PO SCH (08:25)
[2017-03-30] MEDS: COENZYME Q-10 200mg TABLET PO SCH (08:26)
[2017-03-30] MEDS: PredniSONE 20 MG TABLET PO SCH (08:26)
[2017-03-30] MEDS: ESCITALOPRAM 20 MG TABLET PO SCH (08:26)
[2017-03-30] MEDS: ASCORBIC ACID 500 MG TABLET PO SCH (08:26)
[2017-03-30] MEDS: LACTOBACILLUS (15B cfu) CAPSULE PO SCH (08:26)
[2017-03-30] MEDS: SENNA + DOCUSATE TABLET PO SCH ×2 (08:27→21:34)
[2017-03-30] MEDS: GUAIFENESIN 400MG TABLET PO SCH ×4 (08:27→21:32)
[2017-03-30] MEDS: NYSTATIN 500,000 units/5 ml ORAL LIQUID PO SCH ×4 (08:28→21:27)
[2017-03-30] MEDS: SPIRONOLACTONE 50 MG TABLET PO SCH (08:29)
[2017-03-30] MEDS: SIMETHICONE 80 MG CHEWABLE TABLET PO SCH ×4 (08:29→21:25)
[2017-03-30] MEDS: ALBUTEROL 2.5mg/0.5ml (0.5%) NEB AEROSOL SCH ×4 (08:50→20:57)
[2017-03-30] MEDS ORDERED: GABAPENTIN 300 MG CAPSULE PO SCH (09:00)
--- NOTE | 2017-03-30 11:16 | IRU Progress Note ---
- Subjective/Serverity of Illness Date: 03/30/17 Mr. Hutchinson was evaluated in his room on inpatient rehabilitation. In addition, I visited with the patient's at length, case management as well as therapy. From a medical standpoint, the patient states that his pain is reasonably well controlled. At the present time he is on a reduced dose of gabapentin. His response time is improved with regard to asking him questions. He does seem a bit discouraged at the present time. From a therapy standpoint, he was taken to the gymnasium today. Continues to be about the same and require significant assistance. He is not making progress at present. Efforts are underway to work with the patient, his and with case management with regard to appropriate next step placement. Seems to be stable from a medical standpoint. His lungs sound clear at present. Exam Vital Signs: Temperature 98.1 F 03/30/17 07:43 Pulse Rate 67 03/30/17 07:43 Respiratory Rate 22 03/30/17 08:50 Blood Pressure 137/88 03/30/17 08:43 Pulse Oximetry 98 03/30/17 08:50 Height/Weight/BMI: Height 1.7 m Weight 135 kg Body Mass Index 45.0 - Constitutional Present: no acute distress, well nourished, well developed, morbidly obese, cooperative - Routine HEENT Exam Head: Present: normocephalic Eye: Present: EOMI ENT: Present: oropharynx clear - Routine Neck Exam Present: supple - Routine Respiratory Exam Present: decreased breath sounds, CTA bilaterally. Absent: wheezes - Routine Cardiovascular Exam Present: RRR, S1, S2. Absent: murmur - Routine Abdominal Exam Present: soft, normoactive bowel sounds, non distended. Absent: tenderness - Routine Extremities Exam Present: no edema - Routine Skin Exam Present: wounds Comments: Patient continues to have multiple skin lesions consistent with malignancies. Has multiple wounds as well. Please see previous description. - Routine Neurological Exam Present: alert, oriented X3, CN II-XII intact - Routine Psychiatric Exam Present: normal affect, cooperative, depressed. Absent: good insight, good judgment Results IRU - Labs Labs: Patient's sodium continues to be low at 125. 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 Unfortunately he has plateaued with therapy at this point. It is possible that he will improve in the future, the further he gets away from his influenza infection. (2) Influenza A Current visit: Yes Status: Resolved (3) Rheumatoid arthritis Qualifiers: Rheumatoid arthritis location: multiple sites Rheumatoid factor presence: unspecified presence Qualified Code(s): M06.9 - Rheumatoid arthritis, unspecified Current visit: Yes Status: Chronic (4) Atrial fibrillation, chronic Current visit: Yes Status: Chronic (5) (HFpEF) heart failure with preserved ejection fraction Current visit: Yes Status: Chronic His weight is up 5 kg if accurate. Diuretics were held. Per hospitalist service. (6) CKD (chronic kidney disease) stage 3, GFR 30-59 ml/min Current visit: Yes Status: Chronic (7) Squamous cell skin cancer Current visit: Yes Status: Chronic (8) Chronic indwelling Sigala catheter Current visit: Yes Status: Chronic (9) Acute on chronic respiratory failure with hypoxemia Current visit: Yes Status: Acute (10) Acute bronchospasm Current visit: Yes Status: Resolved (11) SONYA (obstructive sleep apnea) Current visit: Yes Status: Chronic (12) Slow transit constipation Current visit: Yes Status: Acute (13) Hyponatremia Current visit: Yes Status: Chronic Sodium remains 125. (14) Neuropathic pain of both legs Current visit: Yes Status: Chronic (15) Syncope Qualifiers: Syncope type: unspecified Qualified Code(s): R55 - Syncope and collapse Current visit: Yes Status: Resolved DVT Prophylaxis: Coumadin Resuscitation Status: Do Not Resuscitate - Course Hospital Course: Pedro Pittman MD: 03/16/17 12:11 Multiple medical problems as outlined. Severe weakness noted. Just getting started with therapies. 03/19/17 12:04 Patient is cooperative and participates with therapy although progress is quite slow. Continues to have expiratory wheezes. He is afebrile. Numerous skin lesions identified. would like to have lidocaine used for dressing removal. I will discuss with wound care. 03/20/17 10:44 Multiple skin lesions will require continued meticulous nursing management. Medically he seems stable. Lungs are clear. INR is therapeutic. He is participating with therapy. 03/22/17 11:35 Slow progression with therapy. Multiple skin lesions noted and being monitored by nursing including wound care nurse. INR subtherapeutic. 03/23/17 11:46 Slow progress with therapy. INR therapeutic. Complains of constipation. 03/26/17 14:53 Progress continues to be slow. Sodium down to 126. Weight was up to 133 and now down to 130 kg. Easy fatigability and continued evidence of critical illness/disuse myopathy. 03/27/17 10:30 Sodium down to 124. He is overdrinking fluids and he was advised not to do that. Now on a fluid restriction. Complains of pain in the right leg heel pad area but also throughout the leg. We will modify the gabapentin dose. 03/29/17 10:09 Patient remains very complex. Diuretics held. Sodium still low 125. Syncope yesterday. Somewhat slow to respond. We will reduce gabapentin. 03/30/17 11:22 Patient is more alert today. Exam is otherwise negative for changes. Weight is up. Sodium 125. Continues to be plateaued with therapy. - Interventions to Obtain Goals PT Treatment Plan: Balance/Proprioception, Functional Activities, Gait Training , Patient/Family Education, Therapeutic Exercise OT Treatment Plan: ADL (Basic Care), Balance Training, Pt./Family Education, Ther. Exercise for ADL Goals Progress/Modifications: Unfortunately patient is quite debilitated and remains plateaued. He is cooperative and attempts to assist. Have discussed the case in detail with the patient's as well as case management. Options have been reviewed. Placement in progress. It is my opinion likely, given enough time, he will be able to improve but he will require intense wound care in the meantime as well as resolution of his influenza A/pulmonary issues.
[2017-03-30] MEDS: CALCIUM CARBONATE Chewable 500mg TABLET PO SCH (12:54)
[2017-03-30] MEDS: WARFARIN 2.5 MG TABLET PO SCH (12:55)
--- NOTE | 2017-03-30 13:06 | Wound Care Progress Note ---
Wound Center Progress Note: Pt seen for wound follow up, seen with Adele CHANG. Pt resting in bed, at bedside. Bilateral knee dressings changed. Bilateral knees: wound bed has slough and pink non-granulating tissue, small serosanguineous drainage. Periwound: blanchable erythema. Dressings: Tati/Mepilex border, change q 5 days. Pt is refusing dressings/foam boots/small heel protectors to bilateral heels. Continue to float heels. Nursing staff had already changed pt's back and buttock dressings. states both of these areas have improved. To back: Press n Seal, change daily and PRN. To bilateral buttocks: barrier cream/Press n Seal, change daily and PRN. Bilateral posterior calf dressings were changed yesterday. Recommendation for intertriginous dermatitis to underside of pannus and bilateral breasts-Nystatin powder TID + pillow cases.
--- NOTE | 2017-03-30 13:57 | Progress Note ---
- Date 03/30/17 Subjective: Devendra was sitting up in bed, very tired. His eyes are closed until we ask them to open. His responses are delayed but appropriate. His states that he acts this way when he's fluid up and when he's "drugged" -- she reports that his gabapentin dose was decreased again today. Devendra denies feeling SOA. He denies pain at all, which is unusual. In fact, he told his that he felt "" b/c he couldn't feel any pain. He denies feeling foggy or like his brain is under the influence. He admits to feeling very weak and tired. Objective Vital signs: Temperature 98.1 F 03/30/17 07:43 Pulse Rate 67 03/30/17 07:43 Respiratory Rate 22 03/30/17 08:50 Blood Pressure 137/88 03/30/17 08:43 Pulse Oximetry 98 03/30/17 08:50 Height/Weight/BMI: Height 1.7 m Weight 129.5 kg Body Mass Index 45.0 - Constitutional Present: morbidly obese - Routine HEENT Exam Head: Present: normocephalic, cushingoid faces Eye: Present: PERRL. Absent: conjunctival icterus, scleral injection ENT: Present: mucous membranes moist - Routine Respiratory Exam Present: decreased breath sounds - Routine Cardiovascular Exam Present: irregularly irregular - Routine Abdominal Exam Present: distended (?ascites). Absent: tenderness - Routine Extremities Exam Present: edema (b/l thighs, lower abdomen, hips 1-2+) - Routine Skin Exam Present: dry, warm, wounds (multiple wounds/lesions scattered across body. bulky gauze dressing to both lower ext.) - Routine Neurological Exam Present: oriented X3, moving all extremities. Absent: motor deficit - Routine Psychiatric Exam Present: cooperative Results - Labs CBC & Chem 7: 03/29/17 04:30 03/30/17 05:25 Microbiology Results: Microbiology 03/30/17 02:46 Urine, Cath Sigala, Chronic Urine Culture - Preliminary Culture Initiated - Results Pending Assessment and Plan (1) Myopathy Current visit: Yes Status: Acute (2) Squamous cell skin cancer Current visit: Yes Status: Chronic (3) Acute on chronic respiratory failure with hypoxemia Current visit: Yes Status: Acute Assessment and Plan: Impression Syncope, recurrent and chronic: workup negative Acute encephalopathy - improved Generalized Myopathy Skin lesions consistent with basal cell and squamous cell carcinoma Recent influenza A with continued hypoxia. Hyponatremia, chronic Intertriginous dermatitis Chronic atrial fibrillation Congestive heart failure. 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 Hypertension AAA Coronary artery disease Peripheral vascular disease Hypothyroidism - resumed levothyroxine on 03/18/17 history of asthma history of seizures Plan Multifactorial encephalopathy -- Very drowsy with delayed processing and/or verbal responses. Gabapentin dose further adjusted per Dr. Pittman. Could be r/t hyponatremia; difficult to assess intravascular fluid status. Weight is down from 135 kg yesterday to 129.5 this am, and diuretics have been on hold for 2 days. ABG ordered, but pt was not hypercarbic or acidotic. Another consideration is depression, and we may want to consider psych consultation. Case was discussed with Dr. Mcintosh. Spironolactone can cause hyponatremia and he recommends decreasing dose to 25 mg. He also recommends restarting Lasix but continue to hold metolazone, start tele d/t syncope and hx a-fib, tighten fluid restriction from 1500 to 1125-9255 ml/day, check orthostatics if able, and obtain an echo. He will see Devendra either tonight or tomorrow am. In addition, records have been requested from Dr. Cesar's office at [facility] in [place]. He has been afebrile; UC pending. Sigala in place. Pt may have plateaued from a functional perspective and CM is looking into other placement options. DVT Prophylaxis: Coumadin Resuscitation Status: Do Not Resuscitate - Physician Narrative Narrative: Date: 03/30/17 Time: 1353 Hospital Course Summary Disclaimer: The visit summary below is not to be considered part of the above Progress Note. Hospital Course: Plan Agree with admission to inpatient rehabilitation unit under the care of Dr. Pittman for significant myopathy and weakness secondary to recent acute hospitalization and illness. Patient does have a very complex past medical history and current chronic comorbidities. Appreciate hospitalist consultation for assistance in medical management. Consultation placed with the wound care team for evaluation and recommendations of ongoing wound care. Left leg squamous cell carcinoma-stable. Patient scheduled to follow with radiation oncology once medically improved. does report that she would like to use her homemade "save" which contains eggplant an essential oil. Consult to pharmacy for ongoing management of INR and Coumadin dosing. Patient has known positive urine culture for VRE. Will forego any treatment. Given chronic colonization of indwelling Sigala catheter Patient does wish to be a full code and this orders written. Appreciate medical consultation, the hospitalist services will continue to follow patient medically manage his existing comorbidities during his stay on IRU unit. At time of discharge his medical care will return to his primary care provider in Dr. Doug Ang in [place] 03/18/17 Give additional Lasix 40 mg PO now; start daily weights. Sounds like he has a hx of flash pulmonary edema; reports he was previously on Lasix TID then was decreased to BID -- monitor fluid status closely as we may need to provide extra diuresis periodically versus adding another dose in the afternoon. Will recheck BMP in am. Change dosing of gabapentin to 300 mg TID and 300 mg at 0200, per 's request. Increase simethicone to home dosing schedule. Resume levothyroxine 50 mcg -- he took this in [place]. Consider wound consultation. Suspect mild leukocytosis is chronic given prednisone use though will recheck CBC in am to document stability. INR is therapeutic. 03/20/17 Na decreased to 125 but exam suggests fluid positive state. Will increase Lasix to 60 mg BID, starting this afternoon. Will resume spironolactone. Wait on resuming KDur since K was still elevated at 4.8 but we may need to resume K soon. Renal status stable Rn to call wound team regarding excoriation under left breast. INR is therapeutic; high risk medication in use. Encourage PT/OT/activity as siva. Discussed with Dr. Pittman and with Dr. Ruvalcaba. 2/2 Given increased edema and increase in weight. We will give an additional 40 milligrams of Lasix both this evening and tomorrow evening. Recheck BMP tomorrow morning to follow electrolytes and renal function. Patient may need additional testing supplementation. Discussed importance of bowel motivation. Continue on current regimen Oral Dulcolax, Colace, senna plus, MiraLAX, milk of magnesia. Did also add Dulcolax suppository and encouraged nursing to try a brown cow. Recommend using suppository. By this evening if no bowel movements. This will also help with fluid retention and edema. Otherwise doing well. 2/3 His wt is up 6kg since yesterday which is likely an error. Clinically this does not appear to be the case. He is difficult to weigh. Will reweigh in the am. Will cancel the extra dose of Lasix as ordered this evening given his drop in sodium. His urine is dark, breathing is ok and swelling is less. Likely doesn't need further diuresis. Sodium down to 126 from 132 yesterday. Will continue to follow. Case discussed with Dr. Thomas. 03/27 Sodium is again down to 124. Nursing staff does report patient drinks "numerous pitchers of water a day". This is likely attributing to hyponatremia. Weight yesterday at baseline admission weight. Continue to watch daily weights Will decrease second Lasix dose to 40mg at 1400 and continue with 60 mg in the am 03/28 Recurrent syncope -- check EKG, trop x3, CT head, CXR Acute encephalopathy -- poss r/t hyponatremia; Na down to 123 today ? intervascularly dry Hold Lasix this afternoon. Hold metolazone. Give NS 500 mL IVF today. Cont wound care -- asks about dsg options other than Mepilex EKG personally reviewed: A-fib with controlled rate; No ST elevation/depression ; RBBB; +Q wave lat leads CXR personally reviewed: no pulmonary congestion/infiltrate Trop #1 = 0.[address] pending. I spoke with Dr. Ang from [place]. During his 90+ day SNF stay he showed only minimal improvement in functional status. He tends to run about 128-130 on sodium level, with elevated bicarb as well. He has had several syncopal episodes during his SNF stay. Diuretics at time of dc were: Spironolactone 25 mg BID, metolazone 5 mg daily, and Lasix [address] Ang noted anasarca while at [facility]. LTC placement was recommended but pt/ declined. 03/29 Encephalopathy is better today. Na still low but increased to 125 after fluid bolus yesterday/holding diuretics. He had Lasix this morning but will hold the rest of his diuretics today. Recheck BMP/mg in am to re-eval electrolytes/renal function and possibly resume diuretics. I did reach Dr. Ang yesterday, who reported that Devendra was on Spironolactone 25 mg BID, metolazone 5 mg daily, and Lasix 80 mg BID while at [facility] in [place]. Oxycodone and gabapentin doses reduced today per Dr. Pittman. Movantik started for opioid induced constipation IRU team meeting planned this afternoon to discuss discharge plans. 03/30 Multifactorial encephalopathy -- Very drowsy with delayed processing and/or verbal responses. Gabapentin dose further adjusted per Dr. Pittman. Could be r/t hyponatremia; difficult to assess intravascular fluid status. Weight is down from 135 kg yesterday to 129.5 this am, and diuretics have been on hold for 2 days. ABG ordered, but pt was not hypercarbic or acidotic. Another consideration is depression, and we may want to consider psych consultation. Case was discussed with Dr. Mcintosh. Spironolactone can cause hyponatremia and he recommends decreasing dose to 25 mg. He also recommends restarting Lasix but continue to hold metolazone, start tele d/t syncope and hx a-fib, tighten fluid restriction from 1500 to 9757-7071 ml/day, check orthostatics if able, and obtain an echo. He will see Devendra either tonight or tomorrow am. In addition, records have been requested from Dr. Cesar's office at [facility] in [place]. He has been afebrile; UC pending. Sigala in place. Pt may have plateaued from a functional perspective and CM is looking into other placement options.
[2017-03-30] MEDS: FUROSEMIDE 40 MG TABLET PO SCH (16:04)
[2017-03-30] MEDS: GABAPENTIN 100 MG CAPSULE PO SCH ×2 (16:04→21:32)
[2017-03-30] MEDS: Oxycodone *IR* 5 MG TABLET PO PRN (23:18)
[2017-03-31] MEDS: ALBUTEROL 2.5mg/0.5ml (0.5%) NEB AEROSOL SCH ×4 (05:30→19:22)
[2017-03-31] MEDS: LEVOTHYROXINE 50 MCG TABLET PO SCH (06:36)
[2017-03-31] MEDS: PANTOPRAZOLE 40 MG TABLET PO SCH (06:36)
[2017-03-31] MEDS: NALOXEGOL 12.5 MG TABLET PO SCH (06:37)
[2017-03-31] MEDS: FUROSEMIDE 40 MG TABLET PO SCH (06:38)
[2017-03-31] MEDS: NYSTATIN 500,000 units/5 ml ORAL LIQUID PO SCH ×4 (08:42→21:01)
[2017-03-31] MEDS: GUAIFENESIN 400MG TABLET PO SCH ×5 (08:43→21:37)
[2017-03-31] MEDS: SENNA + DOCUSATE TABLET PO SCH ×2 (08:43→21:38)
[2017-03-31] MEDS: ASCORBIC ACID 500 MG TABLET PO SCH (08:43)
[2017-03-31] MEDS: PredniSONE 20 MG TABLET PO SCH (08:44)
[2017-03-31] MEDS: GABAPENTIN 100 MG CAPSULE PO SCH ×3 (08:44→21:01)
[2017-03-31] MEDS: COENZYME Q-10 200mg TABLET PO SCH (08:44)
[2017-03-31] MEDS: LACTOBACILLUS (15B cfu) CAPSULE PO SCH (08:45)
[2017-03-31] MEDS: SIMETHICONE 80 MG CHEWABLE TABLET PO SCH ×4 (08:46→21:00)
[2017-03-31] MEDS: FERROUS SULFATE 324 MG TABLET PO SCH (08:46)
[2017-03-31] MEDS: ESCITALOPRAM 20 MG TABLET PO SCH (08:46)
[2017-03-31] MEDS ORDERED: SPIRONOLACTONE 25 MG TABLET PO SCH (09:00)
--- NOTE | 2017-03-31 11:53 | Cardiology Consult Note ---
History of Present Illness Consult reason: atrial fibrillation, congestive heart failure Chief complaint: low sodium History of present illness: Mr. Hutchinson is an unfortunate 76-year-old male who is a chronically ill and has multiple and chronic comorbidities and has spent a good time of this past year in the hospital with several admissions according his . He sees Dr. Nguyen in [place] for hospital care, Dr. ANG in [place] and Dr. Cesar cardiologists in [place] has been treated him for a chronic diastolic CHF chronic atrial fibrillation for the past 7-8 years. He denies any known coronary artery disease DE or previous heart catheter and agrees with that , although hospitalist records indicates an history of coronary artery disease but no specifics are available to me nor relevant at this time. Patient was admitted to [facility] on February 26 with severe weakness hypoxemia and cough all to be determined due to secondary and influenza A pneumonia which also has a MRSA isolation from the nearest abnormal urine cultures for pseudomonas aeruginosa and enterococcus fasceum felt to represent chronic colonization. Patient was transferred to [facility] inpatient rehabilitation on or about March 15 for strengthening after acute illness myopathy. Abdomen syncopal episodes upon trying to get up and I was reportedly happening and an outside facility as well. She has been reportedly dizzy sitting up according his and his nurse. He has been getting out of bed only with using a left but even with that, unfortunately he has not been able to participate in therapy due to generalized weakness. tells me that there are plans to move to an acute care facility in [place] planned for Sunday. On Sunday evening I received a consultation from mid-level hospitalist, due to difficulty with hyponatremia has been difficult to manage as well as CHF and A. fib. Patient has been on fluid restriction , sign on the door endorses 1500 MLS , although the order is for 1200 cc. Patient did receive IV normal saline bolus 500 cc with only a slight improvement of his hyponatremia. Patient's appetite overall appears reasonable, having it about 75% of his breakfast today and eating usually 75-100% of his meals according his nurse and her assistant spa manager. Weight has gone down since admission .fluid balance has been negative. He has been getting by mouth Lasix 60 Zaroxolyn 5 mg spironolactone 50 MG twice a day and potassium chloride 20 Meq twice a day. Discussion with the mid-level yesterday I recommend of Zaroxolyn be stopped , spironolactone lowered to 25 mg daily due to hyponatremia and I agreed with keeping Lasix at a lower dose of 40 mg by mouth daily for the time being. In addition patient's getting tapered off gabapentin due to lethargy Patient complains of generalized weakness . He denies dyspnea angina or palpitations he complains of some dizziness initially after changing position and generally ill speaks somewhat quite slowly unable to provide much information. Most of Information obtained from medical chart, medical records, nurse, providers and his caring . also says he has recently and briefly become weak and limp and passed out, several times when they tried to stand him up. This has happened in this and previous medical facilities. He appears comfortable room air although intermittently slightly tachypneic the patella back on his CPAP appears more comfortable. He has known obstructive sleep apnea. His proBNP was just over thousand, chest x-ray showed clear lungs without heart failure, echocardiogram reviewed see report, preserved LV function with mild LVH and mild left ventricular enlargementvalve dysfunction. EKG rate controlled atrial fibrillation low QRS voltage right bundle branch block no acute changes ischemia. Telemetry strips available shows rate-controlled atrial fibrillation. Patient is also being seen by wound service to multiple wounds and scattered areas of a squamous cell carcinoma pushing his lower extremity has some skin tears on his back which are oozing some blood has some protective medicated plastic sheets placed on his back. Patient's INR has been therapeutic. He has chronic kidney disease. Does not have known liver disease. Review of Systems All systems PM: 10-point ROS was reviewed, no additional remarkable complaints except - Constitutional Constitutional: Present: fatigue, lethargy, weight loss. Absent: fever(s) - Respiratory Respiratory: Present: cough (small amount of yellow phlegm) - Gastrointestinal Gastrointestinal: Present: constipation PFSH Patient Stated Medical History Cataracts Yes Dental Problems Yes: DENTURES Hearing Loss Yes Cardiac Arrhythmia Yes: A FIB Chronic Obstructive Pulmonary Yes Disease (COPD) Sleep Apnea Yes: CPAP Constipation Yes Obstructive Bowel Yes: 2016 Ulcer Yes Other GI Yes: HERNIA MESH Hx Benign Prostatic Yes Hyperplasia Hx Urinary Tract Infection Yes: RECENT Other Yes: CHRONIC CHOWDHURY Anemia Yes Osteoarthritis Yes: RHEUMATOID ARTHRITIS with chronic steroids Cellulitis Yes MRSA Yes Sepsis Yes Vancomycin-Resistant Yes Enterococci Depression Yes Negative for diabetes Surgical History: Umbilical Herniorrhaphy with mesh placement. Subsequent bowel obstruction and exploration with removal of mesh and 9 inches of colon. Removal of "gallstone" without cholecystectomy, by report. Multiple skin cancers removed. Implanted neurostimulator in back- currently off, battery patient does not want this replaced - Social History Smoking status: Former smoker (quit 1971) Substance use type: does not use Alcohol intake frequency: does not drink Household members: spouse Current residence: Apartment/Private Home Medications Home Medications Medication Instructions Recorded Confirmed Type Ascorbic Acid 500 mg PO DAILY 03/15/17 03/15/17 History Calcium Carb, Cit/Magnesium Ox 1 each PO NOON 03/15/17 03/15/17 History [Calmag Thins Tablet] Cholecalciferol (Vitamin D3) 1 tab PO DAILY 03/15/17 03/15/17 History [Vitamin D3] Escitalopram Oxalate [Lexapro] 20 mg PO DAILY 03/15/17 03/15/17 History Ferrous Sulfate 325 mg PO DAILY 03/15/17 03/15/17 History Furosemide [Lasix] 1 tab PO DAILY 03/15/17 03/15/17 History Gabapentin 300 mg PO TID 03/15/17 03/15/17 History Gabapentin [Neurontin] 1 cap PO HS 03/15/17 03/15/17 History Lactobacillus Acidophilus 2 each PO DAILY 03/15/17 03/15/17 History [Acidophilus Lactobacilli] Magnesium Glycinate [Mag Glycinate] 200 mg PO DAILY 03/15/17 03/15/17 History Metolazone [Zaroxolyn] 5 mg PO DAILY 03/15/17 03/15/17 History Metoprolol Tartrate [Lopressor] 25 mg PO BIDWM 03/15/17 03/15/17 History Nystatin Oral Liq. [Mycostatin] 5 ml PO QID 03/15/17 03/15/17 History Oxycodone HCl [Oxaydo] 5 mg PO Q5HR PRN 03/15/17 03/15/17 History PEG 3350 17gm PACKET [Miralax] 17 gm PO DAILY 03/15/17 03/15/17 History Pantoprazole Tab [Protonix Tab] 1 tab PO ACB 03/15/17 03/15/17 History Potassium Chloride [K-DUR 20 mEq 1 tab PO BID 03/15/17 03/15/17 History Tablet] PredniSONE [Deltasone] 20 mg PO WB 03/15/17 03/15/17 History Senna + Docusate [Senna Plus 2 tab PO BID 03/15/17 03/15/17 History Tablet] Simethicone [Mylicon] 80 mg PO DAILY PRN 03/15/17 03/15/17 History Spironolactone [Aldactone] 50 mg PO BID 03/15/17 03/15/17 History Ubidecarenone [Co Q10] 1 cap PO DAILY 03/15/17 03/15/17 History Warfarin Sodium [Coumadin] 1 mg PO 03/15/17 History Warfarin [Coumadin] 2 mg PO 1700 03/15/17 03/15/17 History Allergies Allergy/AdvReac Type Severity Reaction Status Date / Time hydroxychloroquine Allergy Severe sores on Verified 03/15/17 18:13 legs, feet, mouth Iodine and Iodide Containing Allergy Severe throat Verified 03/15/17 18:13 Produc started to close influenza virus vaccine, Allergy Intermediate sick for 3 Verified 03/15/17 18:13 specific months silver Allergy Intermediate breaks out, Verified 03/15/17 18:13 sulfasalazine Allergy Intermediate caused afib Verified 03/15/17 18:13 vancomycin Allergy Intermediate Rash Verified 03/15/17 18:13 zinc oxide Allergy Intermediate Rash Verified 03/15/17 18:13 amoxicillin Allergy Mild leg Verified 03/15/17 18:13 swelling tobramycin Allergy Mild facial Verified 03/15/17 18:13 edema, elevated HR, SOB cephalexin Allergy Unknown short of Verified 03/15/17 18:13 breath, rash ciprofloxacin Allergy Unknown short of Verified 03/15/17 18:13 breath, joints ache clavulanic acid Allergy Unknown leg Verified 03/15/17 18:13 swelling dronedarone Allergy Unknown Verified 03/15/17 18:13 famotidine Allergy Unknown Joint Pain Verified 03/15/17 18:13 Penicillins Allergy short of Verified 03/15/17 18:13 breath, brain fog, leg swelling methotrexate AdvReac Severe skin Verified 03/15/17 18:13 cancers alginate dressing AdvReac Mild feels like Verified 03/15/17 18:13 on fire acetaminophen AdvReac Unknown liver Verified 03/15/17 18:13 failure collagen firocol AdvReac Mild juan Uncoded 03/15/17 18:13 Exam Vital signs: Temperature 97.5 F 03/31/17 08:20 Pulse Rate 74 03/31/17 08:20 Respiratory Rate 24 03/31/17 11:18 Blood Pressure 114/45 03/31/17 08:20 Pulse Oximetry 97 03/31/17 11:18 - Constitutional no acute distress, morbidly obese, cooperative, other (chronically ill) - Routine HEENT Exam Head: Present: normocephalic, atraumatic Eye: Present: EOMI, PERRL ENT: Present: mucous membranes dry - Routine Neck Exam Present: normal carotid upstroke. Absent: JVD, carotid bruit, lymphadenopathy, thyromegaly - Routine Respiratory Exam Present: CTA bilaterally - Routine Cardiovascular Exam Present: no murmur, irregularly irregular. Absent: JVD - Routine Abdominal Exam Present: soft, normoactive bowel sounds, non distended, non tender - Routine Extremities Exam Present: edema (minimal pitting ankle edema and some mild edema in his upper thighs). Absent: cyanosis, clubbing - Routine Skin Exam Present: lesions (generalized variable skin lesions throughout his body including some hyperkeratotic lesions and discolored areas as well as broad superficial skin tears oozing blood in his back). Absent: intact - Routine Neurological Exam Present: alert, oriented X3 (initially said he was in [facility] then reoriented to [facility].He denies his and the date), CN II-XII intact, moving all extremities, vision grossly intact, hearing grossly intact, normal speech (normal speech but slow). Absent: motor deficit, facial asymmetry - Routine Psychiatric Exam Present: cooperative. Absent: normal thought process (sluggish), depressed, anxious Results 04/09/17 03:55 04/09/17 03:55 Cardiac Enzymes 03/31/17 Range/Units 04:04 AST 21 (17-59) U/L CBC 03/31/17 Range/Units 04:04 WBC 14.5 H (4.5-11.0) T/MM3 RBC 3.44 L (4.50-5.90) M/MM3 Hgb 10.8 L (13.5-17.5) GM/DL Hct 33.9 L (41-53) % Plt Count 206 (130-400) T/MM3 Neut # (Auto) Not performed Lymph # (Auto) Not performed [place] # (Auto) Not performed Eos # (Auto) Not performed Baso # (Auto) Not performed Comprehensive Metabolic Panel 03/31/17 Range/Units 04:04 Sodium 126 L (134-144) MEQ/L Potassium 4.1 (3.6-5) MEQ/L Chloride 86 L (98-107) MEQ/L Carbon Dioxide 34 H (22-30) MEQ/L BUN 43.0 H (9-20) MG/DL Creatinine 1.2 (0.8-1.5) MG/DL Glucose 107 (75-110) MG/DL Calcium 8.3 L (8.4-10.2) MG/DL AST 21 (17-59) U/L ALT 37 (21-72) U/L Alkaline Phosphatase 54 (38-126) U/L Total Protein 6.8 (6.3-8.2) G/DL Albumin 3.0 L (3.5-5.0) G/DL Intake and Output 03/30/17 03/31/17 03/31/17 22:59 06:59 14:59 Intake Total 25 / 25 25 / 25 350 / 350 Output Total 1100 / 1100 420 / 420 Balance -1075 / -1075 -395 / -395 350 / 350 Intake: Oral / 25 25 / 25 350 / 350 Output: Urine Amount (Catheter) 1100 / 1100 420 / 420 Other: Urine Appearance Cloudy Cloudy Urine Color Yellow Yellow Urine Odor Normal Normal # Incontinent Bowel Movements 0 ABG noted with mild metabolic alkalosis, suspected to be related to volume contraction - EKG Interpretation EKG: no acute changes (low QRS voltage and nonspecific ST-T changes no acute ischemic changes) EKG shows: atrial fibrillation (RBBB) EKG interpretations - EKG EKG shows: atrial fibrillation - Blocks, axis, hypertrophy, ST abn AV and intraventricular conduction: right bundle branch block (fixed/ intermittent, complete/incomplete) QRS axis and voltage: low voltage (<0.5 MV total QRS and <1.0 MV in each precordial lead) (based on EKG alone I cannot rule out old inferior and anterior DE. No acute changes of ischemia nevertheless) Assessment and Plan - Assessment and Plan DCHF appears to be hypovolemic, and is hyponatremic permanent(chronic) a fib positional syncope and presyncope (orthostatic) RBBB SONYA CKD recent influenza pneumonia and resp failure myopathy multiple chronic comorbidites Skin ulcers and wounds Rheumatoid arthritis on chronic steroids Anemia d/w ARSON INVESTIGATOR 03/30/17 and recommendations for telemtry (afib and syncope) sitting BP (look for orthostasis) holding zaroxylin lowering spironolactone (d/t orthostasis and hyponatremia) fluid restriction 7227-8174 cc and echocardiogram for my review (see report) additional recommendations (d/w Dr Moran) d/c furosemide spironolactone and KCL for now (expect a need to restart at lower dose ,at a later time) IVF 0.9 NS 75ml /hr monitor the lungs, BMP and sitting BP for positional changes implement 1200 cc fluid restriction I agree with beta blockers and warfarin at this time. Overall and long-term prognosis unfortunately appears poor, due to general debility, very poor functional capacity and multiple chronic and post acute medical problems feel free to call me back if i could be of further assistance thank you Hospital Course Summary Disclaimer: The visit summary below is not to be considered part of the above Progress Note. Hospital Course: Plan Agree with admission to inpatient rehabilitation unit under the care of Dr. Pittman for significant myopathy and weakness secondary to recent acute hospitalization and illness. Patient does have a very complex past medical history and current chronic comorbidities. Appreciate hospitalist consultation for assistance in medical management. Consultation placed with the wound care team for evaluation and recommendations of ongoing wound care. Left leg squamous cell carcinoma-stable. Patient scheduled to follow with radiation oncology once medically improved. does report that she would like to use her homemade "save" which contains eggplant an essential oil. Consult to pharmacy for ongoing management of INR and Coumadin dosing. Patient has known positive urine culture for VRE. Will forego any treatment. Given chronic colonization of indwelling Chowdhury catheter Patient does wish to be a full code and this orders written. Appreciate medical consultation, the hospitalist services will continue to follow patient medically manage his existing comorbidities during his stay on IRU unit. At time of discharge his medical care will return to his primary care provider in Dr. Doug Ang in [place] 03/18/17 Give additional Lasix 40 mg PO now; start daily weights. Sounds like he has a hx of flash pulmonary edema; reports he was previously on Lasix TID then was decreased to BID -- monitor fluid status closely as we may need to provide extra diuresis periodically versus adding another dose in the afternoon. Will recheck BMP in am. Change dosing of gabapentin to 300 mg TID and 300 mg at 0200, per 's request. Increase simethicone to home dosing schedule. Resume levothyroxine 50 mcg -- he took this in [place]. Consider wound consultation. Suspect mild leukocytosis is chronic given prednisone use though will recheck CBC in am to document stability. INR is therapeutic. 03/20/17 Na decreased to 125 but exam suggests fluid positive state. Will increase Lasix to 60 mg BID, starting this afternoon. Will resume spironolactone. Wait on resuming KDur since K was still elevated at 4.8 but we may need to resume K soon. Renal status stable Rn to call wound team regarding excoriation under left breast. INR is therapeutic; high risk medication in use. Encourage PT/OT/activity as siva. Discussed with Dr. Pittman and with Dr. Ruvalcaba. 22 Given increased edema and increase in weight. We will give an additional 40 milligrams of Lasix both this evening and tomorrow evening. Recheck BMP tomorrow morning to follow electrolytes and renal function. Patient may need additional testing supplementation. Discussed importance of bowel motivation. Continue on current regimen Oral Dulcolax, Colace, senna plus, MiraLAX, milk of magnesia. Did also add Dulcolax suppository and encouraged nursing to try a brown cow. Recommend using suppository. By this evening if no bowel movements. This will also help with fluid retention and edema. Otherwise doing well. 2/3 His wt is up 6kg since yesterday which is likely an error. Clinically this does not appear to be the case. He is difficult to weigh. Will reweigh in the am. Will cancel the extra dose of Lasix as ordered this evening given his drop in sodium. His urine is dark, breathing is ok and swelling is less. Likely doesn't need further diuresis. Sodium down to 126 from 132 yesterday. Will continue to follow. Case discussed with Dr. Thomas. 03/27 Sodium is again down to 124. Nursing staff does report patient drinks "numerous pitchers of water a day". This is likely attributing to hyponatremia. Weight yesterday at baseline admission weight. Continue to watch daily weights Will decrease second Lasix dose to 40mg at 1400 and continue with 60 mg in the am 03/28 Recurrent syncope -- check EKG, trop x3, CT head, CXR Acute encephalopathy -- poss r/t hyponatremia; Na down to 123 today ? intervascularly dry Hold Lasix this afternoon. Hold metolazone. Give NS 500 mL IVF today. Cont wound care -- asks about dsg options other than Mepilex EKG personally reviewed: A-fib with controlled rate; No ST elevation/depression ; RBBB; +Q wave lat leads CXR personally reviewed: no pulmonary congestion/infiltrate Trop #1 = 0.[address] pending. I spoke with Dr. Ang from [place]. During his 90+ day SNF stay he showed only minimal improvement in functional status. He tends to run about 128-130 on sodium level, with elevated bicarb as well. He has had several syncopal episodes during his SNF stay. Diuretics at time of dc were: Spironolactone 25 mg BID, metolazone 5 mg daily, and Lasix [address] Ang noted anasarca while at [facility]. LTC placement was recommended but pt/ declined. 03/29 Encephalopathy is better today. Na still low but increased to 125 after fluid bolus yesterday/holding diuretics. He had Lasix this morning but will hold the rest of his diuretics today. Recheck BMP/mg in am to re-eval electrolytes/renal function and possibly resume diuretics. I did reach Dr. Ang yesterday, who reported that Devendra was on Spironolactone 25 mg BID, metolazone 5 mg daily, and Lasix 80 mg BID while at [facility] in [place]. Oxycodone and gabapentin doses reduced today per Dr. Pittman. Movantik started for opioid induced constipation IRU team meeting planned this afternoon to discuss discharge plans. 03/30 Multifactorial encephalopathy -- Very drowsy with delayed processing and/or verbal responses. Gabapentin dose further adjusted per Dr. Pittman. Could be r/t hyponatremia; difficult to assess intravascular fluid status. Weight is down from 135 kg yesterday to 129.5 this am, and diuretics have been on hold for 2 days. ABG ordered, but pt was not hypercarbic or acidotic. Another consideration is depression, and we may want to consider psych consultation. Case was discussed with Dr. Mcintosh. Spironolactone can cause hyponatremia and he recommends decreasing dose to 25 mg. He also recommends restarting Lasix but continue to hold metolazone, start tele d/t syncope and hx a-fib, tighten fluid restriction from 1500 to 8340-5547 ml/day, check orthostatics if able, and obtain an echo. He will see Devendra either tonight or tomorrow am. In addition, records have been requested from Dr. Cesar's office at [facility] in [place]. He has been afebrile; UC pending. Chowdhury in place. Pt may have plateaued from a functional perspective and CM is looking into other placement options.
[2017-03-31] MEDS: NS 1,000 ML IV SCH (11:57)
[2017-03-31] MEDS: CALCIUM CARBONATE Chewable 500mg TABLET PO SCH (13:23)
[2017-03-31] MEDS: WARFARIN 2.5 MG TABLET PO SCH (13:23)
[2017-03-31] MEDS: Oxycodone *IR* 5 MG TABLET PO PRN ×3 (13:38→23:32)
--- NOTE | 2017-03-31 14:09 | Echocardiogram ---
DATE OF STUDY INDICATIONS Congestive heart failure. TECHNICAL QUALITY Technically quite difficult study. It does include 2D, M-mode, Doppler 2D echocardiographic images. The study is difficult due to poor acoustic windows. Images include difficult parasternal and subcostal images and no apical windows. FINDINGS 1. CARDIAC CHAMBERS: Left atrium appears mildly enlarged, measuring 4.3 cm. All other cardiac chambers appear normal in size. RV size and contractility appear normal. Aortic root diameter is borderline increased at 3.8 cm. There appears to be thinning of the aortic wall suggestive of atherosclerosis. 2. LEFT VENTRICLE: Concentric LVH is present. Left ventricular systolic function appears preserved. No good assessment of diastolic function was feasible. The presence of LVH, left atrial enlargement and preserved valvular function suggests diastolic dysfunction. . 3. VALVES: Aortic, mitral, and tricuspid valves are all seen only in a limited fashion. Aortic valve sclerosis is present. The aortic valve opening appears to be restricted likely to a mild degree. Mitral valve exhibits posterior annular calcification with restricted posterior leaflet. The anterior leaflet is sclerotic and appears to have preserved excursion. Tricuspid valve structure and motion appear grossly preserved. . 4. DOPPLER: Limited study. Does not show a significant valvular dysfunction. Unfortunately the Doppler is quite limited and suboptimal. Does not show significant stenotic or regurgitant lesions. Peak flow velocity at the aortic valve level is 1.64 m/sec actually measured on subcostal view. More significant aortic stenosis could not be excluded. No evidence of pericardial effusion, intracardiac masses, thrombi, vegetations or shunts. IMPRESSION 1. Technically quite difficult study due to poor acoustic windows. 2. Left atrial enlargement. 3. Concentric LVH. 4. Preserved left ventricular systolic function. 5. Sclerotic valvular disease involving the aortic and mitral valves. 6. No significant valvular dysfunction based on limited assessment. [facility]
--- NOTE | 2017-03-31 16:35 | Progress Note ---
- Date 03/31/17 Subjective: F/U: hyponatremia, generalized myopathy, diastolic heart failure, encephalopathy. Mr. Hutchinson is seen today in conjunction with nursing in his room with his present. When asked how he is feeling, he responded, "Pretty damn weak". He denies any other complaints or concerns. No chest pain, increased shortness of breath, abdominal pain, nausea or vomiting. His reports that his stools are soft so he has had some bowel incontinence with exercise and movement. Sigala catheter remains in place and actively draining adequate amounts of yellow urine. His appetite is stable. He was seen and evaluated by Dr. Mcintosh who felt that he was hypovolemic and recommended discontinuation of his Lasix, spironolactone and KCl with the initiation of IV fluids for hydration. He also recommended close cardiac monitoring on telemetry given his recent syncope and obtaining orthostatic vital signs as able. Labs today revealed increase in leukocytosis at 14.5 with 7% bands and stable anemia. He remains hyponatremic at 126 with stable renal function. Family expressed concern that he seemed more sedated today after receiving his gabapentin this morning. Increased sedation was discussed by nursing with Dr. Pittman who decreased the gabapentin dosing to 100mg TID. Objective Vital signs: Temperature 97.5 F 03/31/17 08:20 Pulse Rate 74 03/31/17 08:20 Respiratory Rate 20 03/31/17 15:47 Blood Pressure 114/45 03/31/17 08:20 Pulse Oximetry 97 03/31/17 11:18 Height/Weight/BMI: Height 5 ft 7 in Weight 285 lb 7.978 oz Body Mass Index 45.0 Comments: Patient is seen resting in bed with family and nursing at the bedside assisting with cleaning him up after a bowel movement. He appears slightly dyspneic whiles resting almost flat on his back and with no oxygen. Dyspnea resolves once he is sat up. He is noted to require almost complete assist with movement. He is alert and orientated and answers questions appropriately. - Constitutional Present: no acute distress, well nourished, well developed, morbidly obese, cooperative - Routine HEENT Exam Head: Present: normocephalic, atraumatic Eye: Present: PERRL. Absent: conjunctival icterus ENT: Present: mucous membranes moist - Routine Respiratory Exam Present: dyspnea Comments: decreased breath sounds bilaterally; clinically difficult exam due to patient's body habitus and inability to roll to side or sit up. - Routine Cardiovascular Exam Present: S1, S2 - Routine Abdominal Exam Present: soft, normoactive bowel sounds, non distended, non tender - Routine Exam Comments: Sigala catheter in place, actively draining urine. - Routine Extremities Exam Present: edema Comments: diminished pulses bilaterally to lower extremities - 1+. - Routine Back/Spine/Pelvis Exam Back/Spine: Absent: vertebral tenderness - Routine Musculoskeletal Exam Musculoskeletal: Present: moving extremities well - Routine Skin Exam Present: warm. Absent: jaundice Comments: afebrile; bandages intact, clean and dry to bilateral lower extremities and shins. - Routine Neurological Exam Present: alert, moving all extremities, hearing grossly intact, normal speech. Absent: facial asymmetry - Routine Lymphatic Exam Lymphatic: Absent: lymphedema - Routine Psychiatric Exam Present: normal affect, cooperative Results - Labs CBC & Chem 7: 03/31/17 04:04 03/31/17 04:04 Microbiology Results: Microbiology 03/30/17 02:46 Urine, Cath Sigala, Chronic Urine Culture - Final Mixed Bacterial Daryl Present -No further testing will be performed - ABG Interpretation ABG results: 03/30/17 13:50 ABG pH 7.530 H ABG pCO2 38 ABG pO2 62 L ABG HCO3 32 H ABG Total CO2 33.0 H ABG O2 Saturation 94.0 L ABG Base Excess 8.5 H Assessment and Plan (1) Myopathy Current visit: Yes Status: Acute (2) Squamous cell skin cancer Current visit: Yes Status: Chronic (3) Acute on chronic respiratory failure with hypoxemia Current visit: Yes Status: Acute Assessment and Plan: Impression Syncope, recurrent and chronic: workup negative Acute encephalopathy - improved Generalized Myopathy Skin lesions consistent with basal cell and squamous cell carcinoma Recent influenza A with continued hypoxia. Hyponatremia, chronic Intertriginous dermatitis Chronic atrial fibrillation Congestive heart failure. 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 Hypertension AAA Coronary artery disease Peripheral vascular disease Hypothyroidism - resumed levothyroxine on 03/18/17 history of asthma history of seizures Plan - 03/31/17. Mr. Miller multifactorial encephalopathy appears improved today as compared to yesterday. Family expressed concern about increased somnolence this morning after the patient received his gabapentin. Dr. Pittman was contacted and his gabapentin dose was decreased to 100mg TID. Will continue to monitor. Patient was seen by Dr. Mcintosh this morning for further evaluation of his diastolic CHF. He discussed his recommendations with Dr. Moran and stated that he felt the patient was hypovolemic. Will start NS 75cc/hr for hydration. Monitor fluid status closely in addition to urinary output for signs of fluid overload. Given his hyponatremia, will stop his spironolactone, Lasix and KCl and continue to hold his metolazone. Fluid restriction was discontinued. Will continue metoprolol 25mg BID as well as coumadin per Dr. Mcintosh. Will recheck has labs in the AM to monitor blood counts, electrolytes and renal function. Slight increase in leukocytosis at 14.5 with 7% bands. Patient remains afebrile. Prior UA obtained revealed + nitrite with 30-50 WBC and 1+ bacteria. Culture revealed mixed daryl. Will recheck CXR and UA in AM and continue to monitor closely for signs of deterioration or infection. Concern that the patient may have plateaued from a functional perspective. Case management continues to work on discharge planning. Anticipate discharge early next week, hopefully on 04/03/[address] [facility], per family. 03/31/2017-5:40 PM-I reviewed this chart, the patient history, and the [employer]'s/PA 's documented findings as above. We discussed and formulated the assessment and plan as above with the additions below.-Dr. Moran The patient was seen today accompanied by his and several grandchildren. He states he is feeling weak but otherwise feels okay. He denies any pain other than some pain where he has leg wounds. He denies any shortness of breath. He states his appetite is getting better. He has had some loose, incontinent stools. He is on several when necessary laxatives and the only scheduled laxative senna plus Docusate twice a day. On exam he is alert and in no acute distress. Skin exam reveals multiple skin lesions from basal cell and squamous cell carcinoma. Chest is clear to auscultation from the anterior. Cardiovascular reveals a regular rate and rhythm. Abdomen is soft and nontender. Extremities reveal 2 pedal edema. Lower legs are wrapped. Lab is reviewed with white count of 14.5 and 7% bands with 76% neutrophils. He has had no fevers. He is on steroids. Hemoglobin is 10.8. Sodium is 126. BUN 43. Creatinine 1.2. Impression and plan Continued generalized weakness/myopathy-undergoing therapy. Encephalopathy is improving. Gabapentin was decreased. Discussed the patient's fluid status with Dr. Mcintosh this morning. He felt the patient was dry and recommended normal saline at 75 ML's per hour and discontinuation of his diuretics and potassium. Would consider restarting diuretics, possibly at a lower dose in 3-5 days. We'll need to monitor for fluid overload. Currently the patient is on room air. Continue CPAP for obstructive sleep apnea. Elevated white count is likely in part secondary to steroids. The patient's stated that the plan is for him to go to [place] for rehabilitation next week. DVT Prophylaxis: Coumadin GI Prophylaxis: Protonix Resuscitation Status: Do Not Resuscitate - Time spent with patient Time with patient PN: 35 minutes - Physician Narrative Physician: Sonia Moran MD Narrative: Date: 03/31/17 Time: 1623 Hospital Course Summary Disclaimer: The visit summary below is not to be considered part of the above Progress Note. Hospital Course: Plan Agree with admission to inpatient rehabilitation unit under the care of Dr. Pittman for significant myopathy and weakness secondary to recent acute hospitalization and illness. Patient does have a very complex past medical history and current chronic comorbidities. Appreciate hospitalist consultation for assistance in medical management. Consultation placed with the wound care team for evaluation and recommendations of ongoing wound care. Left leg squamous cell carcinoma-stable. Patient scheduled to follow with radiation oncology once medically improved. does report that she would like to use her homemade "save" which contains eggplant an essential oil. Consult to pharmacy for ongoing management of INR and Coumadin dosing. Patient has known positive urine culture for VRE. Will forego any treatment. Given chronic colonization of indwelling Sigala catheter Patient does wish to be a full code and this orders written. Appreciate medical consultation, the hospitalist services will continue to follow patient medically manage his existing comorbidities during his stay on IRU unit. At time of discharge his medical care will return to his primary care provider in Dr. Doug Ang in [place] 03/18/17 Give additional Lasix 40 mg PO now; start daily weights. Sounds like he has a hx of flash pulmonary edema; reports he was previously on Lasix TID then was decreased to BID -- monitor fluid status closely as we may need to provide extra diuresis periodically versus adding another dose in the afternoon. Will recheck BMP in am. Change dosing of gabapentin to 300 mg TID and 300 mg at 0200, per 's request. Increase simethicone to home dosing schedule. Resume levothyroxine 50 mcg -- he took this in [place]. Consider wound consultation. Suspect mild leukocytosis is chronic given prednisone use though will recheck CBC in am to document stability. INR is therapeutic. 03/20/17 Na decreased to 125 but exam suggests fluid positive state. Will increase Lasix to 60 mg BID, starting this afternoon. Will resume spironolactone. Wait on resuming KDur since K was still elevated at 4.8 but we may need to resume K soon. Renal status stable Rn to call wound team regarding excoriation under left breast. INR is therapeutic; high risk medication in use. Encourage PT/OT/activity as siva. Discussed with Dr. Pittman and with Dr. Ruvalcaba. 2/2 Given increased edema and increase in weight. We will give an additional 40 milligrams of Lasix both this evening and tomorrow evening. Recheck BMP tomorrow morning to follow electrolytes and renal function. Patient may need additional testing supplementation. Discussed importance of bowel motivation. Continue on current regimen Oral Dulcolax, Colace, senna plus, MiraLAX, milk of magnesia. Did also add Dulcolax suppository and encouraged nursing to try a brown cow. Recommend using suppository. By this evening if no bowel movements. This will also help with fluid retention and edema. Otherwise doing well. 2/3 His wt is up 6kg since yesterday which is likely an error. Clinically this does not appear to be the case. He is difficult to weigh. Will reweigh in the am. Will cancel the extra dose of Lasix as ordered this evening given his drop in sodium. His urine is dark, breathing is ok and swelling is less. Likely doesn't need further diuresis. Sodium down to 126 from 132 yesterday. Will continue to follow. Case discussed with Dr. Thomas. 2/ Sodium is again down to 124. Nursing staff does report patient drinks "numerous pitchers of water a day". This is likely attributing to hyponatremia. Weight yesterday at baseline admission weight. Continue to watch daily weights Will decrease second Lasix dose to 40mg at 1400 and continue with 60 mg in the am 03/28 Recurrent syncope -- check EKG, trop x3, CT head, CXR Acute encephalopathy -- poss r/t hyponatremia; Na down to 123 today ? intervascularly dry Hold Lasix this afternoon. Hold metolazone. Give NS 500 mL IVF today. Cont wound care -- asks about dsg options other than Mepilex EKG personally reviewed: A-fib with controlled rate; No ST elevation/depression ; RBBB; +Q wave lat leads CXR personally reviewed: no pulmonary congestion/infiltrate Trop #1 = 0.[address] pending. I spoke with Dr. Ang from [place]. During his 90+ day SNF stay he showed only minimal improvement in functional status. He tends to run about 128-130 on sodium level, with elevated bicarb as well. He has had several syncopal episodes during his SNF stay. Diuretics at time of dc were: Spironolactone 25 mg BID, metolazone 5 mg daily, and Lasix [address] Ang noted anasarca while at [facility]. LTC placement was recommended but pt/ declined. 03/29 Encephalopathy is better today. Na still low but increased to 125 after fluid bolus yesterday/holding diuretics. He had Lasix this morning but will hold the rest of his diuretics today. Recheck BMP/mg in am to re-eval electrolytes/renal function and possibly resume diuretics. I did reach Dr. Ang yesterday, who reported that Devendra was on Spironolactone 25 mg BID, metolazone 5 mg daily, and Lasix 80 mg BID while at [facility] in [place]. Oxycodone and gabapentin doses reduced today per Dr. Pittman. Movantik started for opioid induced constipation IRU team meeting planned this afternoon to discuss discharge plans. 03/30 Multifactorial encephalopathy -- Very drowsy with delayed processing and/or verbal responses. Gabapentin dose further adjusted per Dr. Pittman. Could be r/t hyponatremia; difficult to assess intravascular fluid status. Weight is down from 135 kg yesterday to 129.5 this am, and diuretics have been on hold for 2 days. ABG ordered, but pt was not hypercarbic or acidotic. Another consideration is depression, and we may want to consider psych consultation. Case was discussed with Dr. Mcintosh. Spironolactone can cause hyponatremia and he recommends decreasing dose to 25 mg. He also recommends restarting Lasix but continue to hold metolazone, start tele d/t syncope and hx a-fib, tighten fluid restriction from 1500 to 8441-9615 ml/day, check orthostatics if able, and obtain an echo. He will see Devendra either tonight or tomorrow am. In addition, records have been requested from Dr. Cesar's office at [facility] in [place]. He has been afebrile; UC pending. Sigala in place. Pt may have plateaued from a functional perspective and CM is looking into other placement options. Plan - 03/31/17. Mr. Miller multifactorial encephalopathy appears improved today as compared to yesterday. Family expressed concern about increased somnolence this morning after the patient received his gabapentin. Dr. Pittman was contacted and his gabapentin dose was decreased to 100mg TID. Will continue to monitor. Patient was seen by Dr. Mcintosh this morning for further evaluation of his diastolic CHF. He discussed his recommendations with Dr. Moran and stated that he felt the patient was hypovolemic. Will start NS 75cc/hr for hydration. Monitor fluid status closely in addition to urinary output for signs of fluid overload. Given his hyponatremia, will stop his spironolactone, Lasix and KCl and continue to hold his metolazone. Fluid restriction was discontinued. Will continue metoprolol 25mg BID as well as coumadin per Dr. Mcintosh. Will recheck has labs in the AM to monitor blood counts, electrolytes and renal function. Slight increase in leukocytosis at 14.5 with 7% bands. Patient remains afebrile. Prior UA obtained revealed + nitrite with 30-50 WBC and 1+ bacteria. Culture revealed mixed daryl. Will recheck CXR and UA in AM and continue to monitor closely for signs of deterioration or infection. Concern that the patient may have plateaued from a functional perspective. Case management continues to work on discharge planning. Anticipate discharge early next week, hopefully on 04/03/17 to [facility] in [place], per family.
[2017-04-01] MEDS: NS 1,000 ML IV SCH ×2 (00:56→14:33)
[2017-04-01] MEDS: ALBUTEROL 2.5mg/0.5ml (0.5%) NEB AEROSOL SCH ×4 (05:08→20:09)
[2017-04-01] MEDS: PANTOPRAZOLE 40 MG TABLET PO SCH (06:07)
[2017-04-01] MEDS: LEVOTHYROXINE 50 MCG TABLET PO SCH (06:07)
[2017-04-01] MEDS: NALOXEGOL 12.5 MG TABLET PO SCH (06:07)
[2017-04-01] MEDS: Oxycodone *IR* 5 MG TABLET PO PRN ×4 (06:09→23:52)
--- NOTE | 2017-04-01 07:57 | Pharmacy Consult ---
Pharmacy Consult-Warfarin - Laboratory Information 03/16/17 03/17/17 03/18/17 05:38 04:50 04:47 INR 2.18 H 2.04 H 2.00 H 03/19/17 03/20/17 03/21/17 04:07 04:19 04:18 INR 2.05 H 2.09 H 1.81 H 03/22/17 03/23/17 03/24/17 04:55 04:45 05:34 INR 1.88 H 2.09 H 2.35 H 03/25/17 03/27/17 03/29/17 03:53 04:09 04:43 INR 2.59 H 2.62 H 2.62 H 04/01/17 04:52 INR 2.17 H - Consult Information Warfarin Dosing Protocol: 76 y.o. Male with history of A. Fib. and chronic anticoagulation with warfarin. Home dose reported as Warfarin 2mg daily, except on Fridays takes 1mg. goal INR range= 2.0 to 3.0 Date INR dose 03/15 - 2 mg 03/16 2.18 2 mg 03/17 2.04 2 mg 03/18 2.00 2.5 mg 03/19 2.05 2.5 mg 03/20 2.09 2.5 mg 03/21 1.81 3 mg 03/22 1.88 3 mg 03/23 2.09 3 mg 03/24 2.35 3 mg 03/25 2.59 2.5 mg daily and INR's . , 03/27 2.62 2.5 mg 03/28 ---- 2.5 mg 03/29 2.62 2.5 mg daily and change INR's to [facility], We 04/01 2.17 continue: 2.5 mg daily INR is in therapeutic range, continue the Warfarin 2.5 mg p.o. daily. The Pharmacy will continue to monitor and adjust the warfarin dose. Thank you, Sienna [facility]
[2017-04-01] MEDS: FERROUS SULFATE 324 MG TABLET PO SCH (08:29)
[2017-04-01] MEDS: PredniSONE 20 MG TABLET PO SCH (08:29)
[2017-04-01] MEDS: LACTOBACILLUS (15B cfu) CAPSULE PO SCH (08:29)
[2017-04-01] MEDS: ESCITALOPRAM 20 MG TABLET PO SCH (08:30)
[2017-04-01] MEDS: ASCORBIC ACID 500 MG TABLET PO SCH (08:30)
[2017-04-01] MEDS: SENNA + DOCUSATE TABLET PO SCH ×2 (08:30→21:22)
[2017-04-01] MEDS: GABAPENTIN 100 MG CAPSULE PO SCH ×3 (08:30→21:22)
[2017-04-01] MEDS: NYSTATIN 500,000 units/5 ml ORAL LIQUID PO SCH ×4 (08:30→21:24)
[2017-04-01] MEDS: SIMETHICONE 80 MG CHEWABLE TABLET PO SCH ×4 (08:30→21:23)
[2017-04-01] MEDS: COENZYME Q-10 200mg TABLET PO SCH (08:30)
[2017-04-01] MEDS: GUAIFENESIN 400MG TABLET PO SCH ×4 (08:31→21:22)
--- NOTE | 2017-04-01 09:56 | XRay Report ---
Indication: dyspnea, elevated WBC, recent URI PROCEDURE: XR chest 1V: Encounter: Initial Comparison: March 28, 2017 Findings: The lungs are stable in appearance without new focal airspace consolidation. There is no pleural effusion or pneumothorax. The heart size, pulmonary vascularity and mediastinal contours are unchanged. IMPRESSION: Stable appearance of the chest without acute cardiopulmonary disease. .
[2017-04-01] MEDS: CALCIUM CARBONATE Chewable 500mg TABLET PO SCH (12:39)
[2017-04-01] MEDS: WARFARIN 2.5 MG TABLET PO SCH (12:39)
--- NOTE | 2017-04-01 14:44 | Progress Note ---
- Date 04/01/17 Subjective: F/U: Diffuse myopathy, hyponatremia, diastolic heart failure, encephalopathy. Devendra is seen today while sitting in his wheelchair in his room with his and nursing at the bedside. He is alert and answers questions appropriately on exam. He is noted to be slightly withdrawn and tearful on exam and expresses concern and anxiety about his pain and the long drive to [place] via EMS which is anticipated on 04/03/17 when he transfer to [facility] in [place] to continue his therapy. Both he and his had multiple questions and concerns where were all addressed resulting in a lengthy discussion with a positive outcome. In addition to concern about the transport, family also requested better understanding about why Devendra needed to be up in the wheelchair sometimes during the day as well as concerns that when they arrive in [place] that the facilty won't have his medications ready incase he has pain. She also expressed some frustration that the care team in [place] would not immediately order a [facility] bed for Devendra prior to having their wound team assess him. With regard to his clinical status, both Devendra and his feel he is making slow gains. His mentation appears improved and he is more alert today as compared to yesterday with the decrease in the gabapentin per Dr. Pittman. He does complain of more pain in his legs with the decrease in gabapentin but appreciates being more cognitively aware. His breathing is stable and he is breathing easily on room air on exam. His appetite is good and bowels are moving. Sigala remains in place and actively draining adequate yellow urine. He remains afebrile and his vital signs are stable. Labs today revealed slight improvement in leukocytosis (WBC decreased to 14.0) and stable anemia (Hgb 10.9) . INR is therapeutic at 2.17 and being managed by pharmacy. Hyponatremia continues to improve with Na 128. He remains on NS at 75cc/hr. Renal function is stable. Objective Vital signs: Temperature 98.2 F 04/01/17 08:27 Pulse Rate 74 04/01/17 08:27 Respiratory Rate 24 04/01/17 11:28 Blood Pressure 114/63 04/01/17 08:27 Pulse Oximetry 98 04/01/17 11:28 Height/Weight/BMI: Height 5 ft 7 in Weight 285 lb 7.978 oz Body Mass Index 45.0 Comments: Patient is sitting in his wheelchair with his at the bedside. Tearful on exam and expresses anxiety and concern about upcoming transfer with regard to his pain. - Constitutional Present: no acute distress, well nourished, well developed, morbidly obese, cooperative - Routine HEENT Exam Head: Present: normocephalic, atraumatic Eye: Present: PERRL. Absent: conjunctival icterus ENT: Present: mucous membranes moist - Routine Respiratory Exam Comments: Course breath sounds bilaterally; no cough or distress; breathing easily on room air. - Routine Cardiovascular Exam Present: RRR, S1, S2 - Routine Abdominal Exam Present: soft, normoactive bowel sounds, non distended, non tender - Routine Exam Comments: Sigala catheter in place and actively draining yellow urine. - Routine Extremities Exam Present: edema, pulses intact Comments: Bandages to lower legs are clean, dry and intact. Wounds not visualized on exam due to bandages in place. Continue to have poor strength globally. - Routine Back/Spine/Pelvis Exam Back/Spine: Present: full ROM. Absent: vertebral tenderness - Routine Musculoskeletal Exam Musculoskeletal: Present: moving extremities well - Routine Skin Exam Present: dry, warm. Absent: jaundice Comments: afebrile. - Routine Neurological Exam Present: alert, moving all extremities, normal speech. Absent: facial asymmetry - Routine Lymphatic Exam Lymphatic: Present: lymphedema - Routine Psychiatric Exam Present: cooperative Comments: tearful, anxious and slightly withdrawn. Results - Labs CBC & Chem 7: 04/02/17 04:07 04/02/17 06:20 Microbiology Results: Microbiology 03/30/17 02:46 Urine, Cath Sigala, Chronic Urine Culture - Final Mixed Bacterial Daryl Present -No further testing will be performed - Imaging and Cardiology Chest x-ray Status: image reviewed by me Additional comments: Date of Exam: 04/01/17 Type of Exam(s): XR chest 1V Reason for Exam(s): dyspnea, elevated WBC, recent URI Findings: The lungs are stable in appearance without new focal airspace consolidation. There is no pleural effusion or pneumothorax. The heart size, pulmonary vascularity and mediastinal contours are unchanged. IMPRESSION: Stable appearance of the chest without acute cardiopulmonary disease. Assessment and Plan (1) Myopathy Current visit: Yes Status: Acute (2) Squamous cell skin cancer Current visit: Yes Status: Chronic (3) Acute on chronic respiratory failure with hypoxemia Current visit: Yes Status: Acute Assessment and Plan: Impression Syncope, recurrent and chronic: workup negative Acute encephalopathy - improved Generalized Myopathy Skin lesions consistent with basal cell and squamous cell carcinoma Recent influenza A with continued hypoxia. Hyponatremia, chronic Intertriginous dermatitis Chronic atrial fibrillation Congestive heart failure. 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 Hypertension AAA Coronary artery disease Peripheral vascular disease Hypothyroidism - resumed levothyroxine on 03/18/17 history of asthma history of seizures Plan - 04/01/17. Clinically, Devendra appears improved today with improved mentation after reduction in gabapentin per Dr. Pittman yesterday. He does admit to increased pain to his lower extremities with the reduction in the gabapentin but appreciates the improved mentation. Continue to encourage participation in therapies and pain control per Dr. Pittman. Significant concern and anxiety regarding pain during transfer to [place]. Patient requested to receive Gabapentin 200mg x 1 dose immediately prior to discharge as he received great pain control with the dose and would appreciate the increased somnolence during the ambulance ride. He also requested to be able to receive another dose of gabapentin or pain medication immediately prior to arrival in [place] to maintain his pain medication schedule knowing that he will not be able to receive medications immediately on his arrival to [facility]. Will discuss patient wishes with Dr. Pittman. Patient was seen by Dr. Mcintosh on 03/31/17 and felt the patient was hypovolemic. NS 75cc was stated with improvement in hyponatremia (Na 128). Continue NS 75cc/hr and monitor closely for signs of fluid overload. At the recommendation of Dr. Mcintosh, his spironolactone, Lasix and KCl were discontinued and his metolazone remains on hold given his hypovolemia. Fluid restriction was also lifted. Consider restarting diuretics, possibly at lower dose at time of admission. Will continue metoprolol 25mg BID as well as coumadin per Dr. Mcintosh. Will recheck CBC and BMP in AM to continue to monitor blood counts, electrolytes and renal function. Case management continues to work on discharge planning. Anticipate discharge early next week, hopefully on 04/03/17 to [facility] in [place], per family. DVT Prophylaxis: Coumadin GI Prophylaxis: Protonix Resuscitation Status: Do Not Resuscitate - Time spent with patient Time with patient PN: 35 minutes - Physician Narrative Physician: Sonia Moran MD Narrative: Date: 04/01/17 Time: 1419 Hospital Course Summary Disclaimer: The visit summary below is not to be considered part of the above Progress Note. Hospital Course: Plan Agree with admission to inpatient rehabilitation unit under the care of Dr. Pittman for significant myopathy and weakness secondary to recent acute hospitalization and illness. Patient does have a very complex past medical history and current chronic comorbidities. Appreciate hospitalist consultation for assistance in medical management. Consultation placed with the wound care team for evaluation and recommendations of ongoing wound care. Left leg squamous cell carcinoma-stable. Patient scheduled to follow with radiation oncology once medically improved. does report that she would like to use her homemade "save" which contains eggplant an essential oil. Consult to pharmacy for ongoing management of INR and Coumadin dosing. Patient has known positive urine culture for VRE. Will forego any treatment. Given chronic colonization of indwelling Sigala catheter Patient does wish to be a full code and this orders written. Appreciate medical consultation, the hospitalist services will continue to follow patient medically manage his existing comorbidities during his stay on IRU unit. At time of discharge his medical care will return to his primary care provider in Dr. Doug Ang in [place] 03/18/17 Give additional Lasix 40 mg PO now; start daily weights. Sounds like he has a hx of flash pulmonary edema; reports he was previously on Lasix TID then was decreased to BID -- monitor fluid status closely as we may need to provide extra diuresis periodically versus adding another dose in the afternoon. Will recheck BMP in am. Change dosing of gabapentin to 300 mg TID and 300 mg at 0200, per 's request. Increase simethicone to home dosing schedule. Resume levothyroxine 50 mcg -- he took this in [place]. Consider wound consultation. Suspect mild leukocytosis is chronic given prednisone use though will recheck CBC in am to document stability. INR is therapeutic. 03/20/17 Na decreased to 125 but exam suggests fluid positive state. Will increase Lasix to 60 mg BID, starting this afternoon. Will resume spironolactone. Wait on resuming KDur since K was still elevated at 4.8 but we may need to resume K soon. Renal status stable Rn to call wound team regarding excoriation under left breast. INR is therapeutic; high risk medication in use. Encourage PT/OT/activity as siva. Discussed with Dr. Pittman and with Dr. Ruvalcaba. 2/2 Given increased edema and increase in weight. We will give an additional 40 milligrams of Lasix both this evening and tomorrow evening. Recheck BMP tomorrow morning to follow electrolytes and renal function. Patient may need additional testing supplementation. Discussed importance of bowel motivation. Continue on current regimen Oral Dulcolax, Colace, senna plus, MiraLAX, milk of magnesia. Did also add Dulcolax suppository and encouraged nursing to try a brown cow. Recommend using suppository. By this evening if no bowel movements. This will also help with fluid retention and edema. Otherwise doing well. 2/3 His wt is up 6kg since yesterday which is likely an error. Clinically this does not appear to be the case. He is difficult to weigh. Will reweigh in the am. Will cancel the extra dose of Lasix as ordered this evening given his drop in sodium. His urine is dark, breathing is ok and swelling is less. Likely doesn't need further diuresis. Sodium down to 126 from 132 yesterday. Will continue to follow. Case discussed with Dr. Thomas. 03/27 Sodium is again down to 124. Nursing staff does report patient drinks "numerous pitchers of water a day". This is likely attributing to hyponatremia. Weight yesterday at baseline admission weight. Continue to watch daily weights Will decrease second Lasix dose to 40mg at 1400 and continue with 60 mg in the am 03/28 Recurrent syncope -- check EKG, trop x3, CT head, CXR Acute encephalopathy -- poss r/t hyponatremia; Na down to 123 today ? intervascularly dry Hold Lasix this afternoon. Hold metolazone. Give NS 500 mL IVF today. Cont wound care -- asks about dsg options other than Mepilex EKG personally reviewed: A-fib with controlled rate; No ST elevation/depression ; RBBB; +Q wave lat leads CXR personally reviewed: no pulmonary congestion/infiltrate Trop #1 = 0.[address] pending. I spoke with Dr. Ang from [place]. During his 90+ day SNF stay he showed only minimal improvement in functional status. He tends to run about 128-130 on sodium level, with elevated bicarb as well. He has had several syncopal episodes during his SNF stay. Diuretics at time of dc were: Spironolactone 25 mg BID, metolazone 5 mg daily, and Lasix [address] Ang noted anasarca while at SNF. LTC placement was recommended but pt/ declined. 03/29 Encephalopathy is better today. Na still low but increased to 125 after fluid bolus yesterday/holding diuretics. He had Lasix this morning but will hold the rest of his diuretics today. Recheck BMP/mg in am to re-eval electrolytes/renal function and possibly resume diuretics. I did reach Dr. Ang yesterday, who reported that Devendra was on Spironolactone 25 mg BID, metolazone 5 mg daily, and Lasix 80 mg BID while at [facility] in [place]. Oxycodone and gabapentin doses reduced today per Dr. Pittman. Movantik started for opioid induced constipation IRU team meeting planned this afternoon to discuss discharge plans. 03/30 Multifactorial encephalopathy -- Very drowsy with delayed processing and/or verbal responses. Gabapentin dose further adjusted per Dr. Pittman. Could be r/t hyponatremia; difficult to assess intravascular fluid status. Weight is down from 135 kg yesterday to 129.5 this am, and diuretics have been on hold for 2 days. ABG ordered, but pt was not hypercarbic or acidotic. Another consideration is depression, and we may want to consider psych consultation. Case was discussed with Dr. Mcintosh. Spironolactone can cause hyponatremia and he recommends decreasing dose to 25 mg. He also recommends restarting Lasix but continue to hold metolazone, start tele d/t syncope and hx a-fib, tighten fluid restriction from 1500 to 1643-2604 ml/day, check orthostatics if able, and obtain an echo. He will see Devendra either tonight or tomorrow am. In addition, records have been requested from Dr. Cesar's office at [facility] in [place]. He has been afebrile; UC pending. Sigala in place. Pt may have plateaued from a functional perspective and CM is looking into other placement options. Plan - 2/10/18. Mr. Miller multifactorial encephalopathy appears improved today as compared to yesterday. Family expressed concern about increased somnolence this morning after the patient received his gabapentin. Dr. Pittman was contacted and his gabapentin dose was decreased to 100mg TID. Will continue to monitor. Patient was seen by Dr. Mcintosh this morning for further evaluation of his diastolic CHF. He discussed his recommendations with Dr. Moran and stated that he felt the patient was hypovolemic. Will start NS 75cc/hr for hydration. Monitor fluid status closely in addition to urinary output for signs of fluid overload. Given his hyponatremia, will stop his spironolactone, Lasix and KCl and continue to hold his metolazone. Fluid restriction was discontinued. Will continue metoprolol 25mg BID as well as coumadin per Dr. Mcintosh. Will recheck has labs in the AM to monitor blood counts, electrolytes and renal function. Slight increase in leukocytosis at 14.5 with 7% bands. Patient remains afebrile. Prior UA obtained revealed + nitrite with 30-50 WBC and 1+ bacteria. Culture revealed mixed daryl. Will recheck CXR and UA in AM and continue to monitor closely for signs of deterioration or infection. Concern that the patient may have plateaued from a functional perspective. Case management continues to work on discharge planning. Anticipate discharge early next week, hopefully on 04/03/17 to [facility] in [place], per family. Plan - 04/01/17. Clinically, Devendra appears improved today with improved mentation after reduction in gabapentin per Dr. Pittman yesterday. He does admit to increased pain to his lower extremities with the reduction in the gabapentin but appreciates the improved mentation. Continue to encourage participation in therapies and pain control per Dr. Pittman. Significant concern and anxiety regarding pain during transfer to [place]. Patient requested to receive Gabapentin 200mg x 1 dose immediately prior to discharge as he received great pain control with the dose and would appreciate the increased somnolence during the ambulance ride. He also requested to be able to receive another dose of gabapentin or pain medication immediately prior to arrival in [place] to maintain his pain medication schedule knowing that he will not be able to receive medications immediately on his arrival to [facility]. Will discuss patient wishes with Dr. Pittman. Patient was seen by Dr. Mcintosh on 03/31/17 and felt the patient was hypovolemic. NS 75cc was stated with improvement in hyponatremia (Na 128). Continue NS 75cc/hr and monitor closely for signs of fluid overload. At the recommendation of Dr. Mcintosh, his spironolactone, Lasix and KCl were discontinued and his metolazone remains on hold given his hypovolemia. Fluid restriction was also lifted. Consider restarting diuretics, possibly at lower dose at time of admission. Will continue metoprolol 25mg BID as well as coumadin per Dr. Mcintosh. Will recheck CBC and BMP in AM to continue to monitor blood counts, electrolytes and renal function. Case management continues to work on discharge planning. Anticipate discharge early next week, hopefully on 04/03/17 to [facility] in [place], per family.
[2017-04-02] MEDS: ALBUTEROL 2.5mg/3ml (0.083%) NEB AEROSOL PRN (01:08)
[2017-04-02] MEDS: Oxycodone *IR* 5 MG TABLET PO PRN ×4 (04:24→18:04)
[2017-04-02] MEDS: NS 1,000 ML IV SCH ×2 (04:24→18:53)
[2017-04-02] MEDS: ALBUTEROL 2.5mg/0.5ml (0.5%) NEB AEROSOL SCH ×4 (05:17→20:12)
[2017-04-02] MEDS: LEVOTHYROXINE 50 MCG TABLET PO SCH (06:26)
[2017-04-02] MEDS: NALOXEGOL 12.5 MG TABLET PO SCH (06:27)
[2017-04-02] MEDS: PANTOPRAZOLE 40 MG TABLET PO SCH (07:53)
[2017-04-02] MEDS ORDERED: GABAPENTIN 100 MG CAPSULE PO ONE (08:00)
[2017-04-02] MEDS: PredniSONE 20 MG TABLET PO SCH (09:23)
[2017-04-02] MEDS: FERROUS SULFATE 324 MG TABLET PO SCH (09:23)
[2017-04-02] MEDS: LACTOBACILLUS (15B cfu) CAPSULE PO SCH (09:23)
[2017-04-02] MEDS: NYSTATIN 500,000 units/5 ml ORAL LIQUID PO SCH ×4 (09:25→21:14)
[2017-04-02] MEDS: COENZYME Q-10 200mg TABLET PO SCH (09:25)
[2017-04-02] MEDS: GUAIFENESIN 400MG TABLET PO SCH ×4 (09:25→21:14)
[2017-04-02] MEDS: ASCORBIC ACID 500 MG TABLET PO SCH (09:25)
[2017-04-02] MEDS: GABAPENTIN 100 MG CAPSULE PO SCH ×3 (09:25→21:14)
[2017-04-02] MEDS: ESCITALOPRAM 20 MG TABLET PO SCH (09:25)
[2017-04-02] MEDS: SIMETHICONE 80 MG CHEWABLE TABLET PO SCH ×4 (09:26→21:13)
[2017-04-02] MEDS: SENNA + DOCUSATE TABLET PO SCH ×2 (09:26→21:12)
--- NOTE | 2017-04-02 10:55 | IRU Progress Note ---
- Subjective/Serverity of Illness Date: 04/02/17 Mr. Hutchinson was reassessed in his room on inpatient rehabilitation. In addition, I visited with his at length and I talked with SHUN Sullivan this morning regarding the transfer tomorrow. Overall he states that he had a good night. He uses BiPAP off and on. He no longer requires several oxygen during the daytime. His appetite is reasonable. Wound care notes have been reviewed. Brief therapy update: For occupational therapy, upper body dressing has changed from minimum assistance to moderate assistance. Lower body dressing remains at total assistance and bed/chair/flutter transfers remain at total assistance. Physical therapy, bed/chair/wheelchair transfers have improved from total assistance to maximum assistance. Nevertheless, he remains unable to make much progress at present. 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 2. Acute on chronic diastolic heart failure with preserved ejection fraction: Echocardiogram was performed showing preserved ejection fraction. 3. Acute on chronic hypoxemic respiratory failure with requirement for oxygen supplementation: As noted above, he does not require several oxygen during the daytime. 4. Recent influenza A infection: Lungs are clear at present. He reports a continued cough although sputum is unchanged. 5. Chronic kidney disease stage III: His creatinine is improved and estimated GFR is improved. 6. Hyponatremia, multifactorial: He has received intravenous normal saline. Sodium is up to 131. Weight is relatively stable at 130 kg. 7. Chronic indwelling Sigala catheter secondary to chronic urinary urgency, frequency and incontinence with colonization but without active infection (no fever and no other symptoms): He remains afebrile. He requires a catheter to remain in place. 8. Chronic leg wounds/ulcerations: Chronic wounds as noted previously. 9. Atrial fibrillation: INR remains therapeutic, followed by pharmacy. 10. Multiple skin lesions including squamous cell carcinoma of left thomas, multiple apparent basal cell lesions and multiple decubitus lesions including both heels, low midline of his back. I have reviewed his wound care notes. Appreciate their input. Exam Vital Signs: Temperature 97.7 F 04/02/17 08:00 Pulse Rate 67 04/02/17 08:00 Respiratory Rate 28 H 04/02/17 08:10 Blood Pressure 117/59 04/02/17 08:00 Pulse Oximetry 97 04/02/17 08:10 Height/Weight/BMI: Height 1.7 m Weight 130 kg Body Mass Index 45.0 - Constitutional Present: no acute distress, well nourished, well developed, morbidly obese - Routine HEENT Exam Head: Present: normocephalic, atraumatic Eye: Present: EOMI ENT: Present: mucous membranes moist, oropharynx clear - Routine Neck Exam Present: supple, full ROM - Routine Respiratory Exam Present: dyspnea, decreased breath sounds. Absent: respiratory distress, rhonchi, wheezes, crackles - Routine Cardiovascular Exam Present: S1, S2, irregularly irregular. Absent: murmur - Routine Abdominal Exam Present: soft, normoactive bowel sounds, non distended. Absent: tenderness - Routine Extremities Exam Present: no edema. Absent: cyanosis, clubbing - Routine Skin Exam Present: dry, warm, wounds - Routine Neurological Exam Present: alert, oriented X3, CN II-XII intact - Routine Psychiatric Exam Present: normal affect, depressed. Absent: good insight, good judgment Results IRU - Labs Labs: I reviewed repeat chest x-ray and echocardiogram as well as other providers notes. Have discussed case with the hospitalist service (Laurie) this morning. IRU A/P (1) Myopathy Current visit: Yes Status: Acute Patient has plateaued with regard to therapy. He is unable to tolerate a total of 3 hours daily. Continues to display evidence of disuse myopathy. However, it is our hope that the further he gets away from his influenza A infection and bronchospasm etc. that he will be able to improve with regard to self-care. (2) Influenza A Current visit: Yes Status: Resolved (3) Rheumatoid arthritis Qualifiers: Rheumatoid arthritis location: multiple sites Rheumatoid factor presence: unspecified presence Qualified Code(s): M06.9 - Rheumatoid arthritis, unspecified Current visit: Yes Status: Chronic (4) Atrial fibrillation, chronic Current visit: Yes Status: Chronic His INR is monitored by pharmacy and is therapeutic at present. (5) (HFpEF) heart failure with preserved ejection fraction Current visit: Yes Status: Chronic Repeat echocardiogram reviewed. Despite BNP being elevated, ejection fraction remains normal. (6) CKD (chronic kidney disease) stage 3, GFR 30-59 ml/min Current visit: Yes Status: Chronic (7) Squamous cell skin cancer Current visit: Yes Status: Chronic (8) Chronic indwelling Sigala catheter Current visit: Yes Status: Chronic (9) Acute on chronic respiratory failure with hypoxemia Current visit: Yes Status: Acute (10) Acute bronchospasm Current visit: Yes Status: Resolved (11) SONYA (obstructive sleep apnea) Current visit: Yes Status: Chronic (12) Slow transit constipation Current visit: Yes Status: Acute (13) Hyponatremia Current visit: Yes Status: Chronic Sodium improved to 131 with use of intravenous normal saline. (14) Neuropathic pain of both legs Current visit: Yes Status: Chronic (15) Syncope Qualifiers: Syncope type: unspecified Qualified Code(s): R55 - Syncope and collapse Current visit: Yes Status: Resolved DVT Prophylaxis: Coumadin Resuscitation Status: Do Not Resuscitate - Course Hospital Course: Pedro Pittman MD: 03/16/17 12:11 Multiple medical problems as outlined. Severe weakness noted. Just getting started with therapies. 03/19/17 12:04 Patient is cooperative and participates with therapy although progress is quite slow. Continues to have expiratory wheezes. He is afebrile. Numerous skin lesions identified. would like to have lidocaine used for dressing removal. I will discuss with wound care. 03/20/17 10:44 Multiple skin lesions will require continued meticulous nursing management. Medically he seems stable. Lungs are clear. INR is therapeutic. He is participating with therapy. 03/22/17 11:35 Slow progression with therapy. Multiple skin lesions noted and being monitored by nursing including wound care nurse. INR subtherapeutic. 03/23/17 11:46 Slow progress with therapy. INR therapeutic. Complains of constipation. 03/26/17 14:53 Progress continues to be slow. Sodium down to 126. Weight was up to 133 and now down to 130 kg. Easy fatigability and continued evidence of critical illness/disuse myopathy. 03/27/17 10:30 Sodium down to 124. He is overdrinking fluids and he was advised not to do that. Now on a fluid restriction. Complains of pain in the right leg heel pad area but also throughout the leg. We will modify the gabapentin dose. 03/29/17 10:09 Patient remains very complex. Diuretics held. Sodium still low 125. Syncope yesterday. Somewhat slow to respond. We will reduce gabapentin. 03/30/17 11:22 Patient is more alert today. Exam is otherwise negative for changes. Weight is up. Sodium 125. Continues to be plateaued with therapy. 04/02/17 10:58 Patient continues to plateau with therapy. He does seem to be more awake and alert with less gabapentin. Sodium improved to 131 which may also help his mentation. Plans are to transfer to [facility] in [place] tomorrow. - Interventions to Obtain Goals PT Treatment Plan: Balance/Proprioception, Functional Activities, Gait Training , Patient/Family Education, Therapeutic Exercise OT Treatment Plan: ADL (Basic Care), Balance Training, Pt./Family Education, Ther. Exercise for ADL Goals Progress/Modifications: Time spent with patient and on floor reviewing data and documentin min Medical decision-making: Patient and have requested gabapentin 200 mg be given just prior to dismissal tomorrow. In addition I talked with the pharmacy and they will label a single oxycodone to be given about a half hour prior to his arrival in [place]. His wounds continue to be an ongoing issue which will require meticulous care in [place]. His sodium is improved. Unfortunately he has plateaued with therapy. I discussed the patient's transfer with the patient and his today along with Laurie this morning.
[2017-04-02] MEDS: WARFARIN 2.5 MG TABLET PO SCH (13:37)
[2017-04-02] MEDS: CALCIUM CARBONATE Chewable 500mg TABLET PO SCH (13:38)
--- NOTE | 2017-04-02 14:37 | Progress Note ---
- Date 04/02/17 Subjective: Devendra was getting ready to rest, CPAP was in place, but he was still alert. He complained of feeling tired, but otherwise had no complaints. He denied feeling short of breath. He denies abdominal pain or nausea and reports that he's had a good appetite. Both Devendra and his were looking forward to going to [facility] tomorrow -- but unfortunately they found out as I was leaving the room that he wasn't accepted there. Objective Vital signs: Temperature 97.7 F 04/02/17 08:00 Pulse Rate 75 04/02/17 08:00 Respiratory Rate 22 04/02/17 11:35 Blood Pressure 117/59 04/02/17 08:00 Pulse Oximetry 97 04/02/17 11:35 Height/Weight/BMI: Height 1.7 m Weight 130 kg Body Mass Index 45.0 - Constitutional Present: no acute distress, obese - Routine HEENT Exam Head: Present: cushingoid faces Eye: Present: PERRL. Absent: conjunctival icterus, scleral injection ENT: Present: oropharynx clear - Routine Respiratory Exam Present: CTA bilaterally (anteriorly) - Routine Cardiovascular Exam Present: irregularly irregular - Routine Abdominal Exam Present: soft, non tender, distended - Routine Extremities Exam Present: edema (thighs, 1+) - Routine Skin Exam Present: warm, lesions Comments: dressings to both lower ext. - Routine Neurological Exam Present: alert, oriented X3 - Routine Psychiatric Exam Present: normal affect, normal thought process, cooperative Results - Labs CBC & Chem 7: 04/02/17 04:07 04/02/17 06:20 Microbiology Results: Microbiology 04/01/17 19:43 Urine, Cath Sigala Urine Culture - Preliminary Early growth 03/30/17 02:46 Urine, Cath Sigala, Chronic Urine Culture - Final Mixed Bacterial Daryl Present -No further testing will be performed Assessment and Plan (1) Myopathy Current visit: Yes Status: Acute (2) Squamous cell skin cancer Current visit: Yes Status: Chronic (3) Acute on chronic respiratory failure with hypoxemia Current visit: Yes Status: Acute Assessment and Plan: Impression Syncope, recurrent and chronic: workup negative Acute encephalopathy - improved Generalized Myopathy Skin lesions consistent with basal cell and squamous cell carcinoma Recent influenza A with continued hypoxia. Hyponatremia, chronic, baseline 128-130 Intertriginous dermatitis Chronic atrial fibrillation Congestive heart failure. 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 Hypothyroidism - resumed levothyroxine on 03/18/17 history of asthma history of seizures Plan - 04/02/17. Sodium improved to 131. Continue IVF and continue to hold diuretics, appreciate Dr. Mcintosh's expertise. Plans for transfer to [facility] on 04/03 fell through. CM looking at other options. UC from 04/01 shows early growth -- cath specimen. Records received from [facility] in [place] (aerodynamics teacher: Dr. Cesar): EF >55 %; longstanding hx of a-fib DVT Prophylaxis: Coumadin Resuscitation Status: Do Not Resuscitate - Physician Narrative Narrative: Date: 04/02/17 Time: 1433 Hospital Course Summary Disclaimer: The visit summary below is not to be considered part of the above Progress Note. Hospital Course: Plan Agree with admission to inpatient rehabilitation unit under the care of Dr. Pittman for significant myopathy and weakness secondary to recent acute hospitalization and illness. Patient does have a very complex past medical history and current chronic comorbidities. Appreciate hospitalist consultation for assistance in medical management. Consultation placed with the wound care team for evaluation and recommendations of ongoing wound care. Left leg squamous cell carcinoma-stable. Patient scheduled to follow with radiation oncology once medically improved. does report that she would like to use her homemade "save" which contains eggplant an essential oil. Consult to pharmacy for ongoing management of INR and Coumadin dosing. Patient has known positive urine culture for VRE. Will forego any treatment. Given chronic colonization of indwelling Sigala catheter Patient does wish to be a full code and this orders written. Appreciate medical consultation, the hospitalist services will continue to follow patient medically manage his existing comorbidities during his stay on IRU unit. At time of discharge his medical care will return to his primary care provider in Dr. Doug Ang in [place] 03/18/17 Give additional Lasix 40 mg PO now; start daily weights. Sounds like he has a hx of flash pulmonary edema; reports he was previously on Lasix TID then was decreased to BID -- monitor fluid status closely as we may need to provide extra diuresis periodically versus adding another dose in the afternoon. Will recheck BMP in am. Change dosing of gabapentin to 300 mg TID and 300 mg at 0200, per 's request. Increase simethicone to home dosing schedule. Resume levothyroxine 50 mcg -- he took this in [place]. Consider wound consultation. Suspect mild leukocytosis is chronic given prednisone use though will recheck CBC in am to document stability. INR is therapeutic. 03/20/17 Na decreased to 125 but exam suggests fluid positive state. Will increase Lasix to 60 mg BID, starting this afternoon. Will resume spironolactone. Wait on resuming KDur since K was still elevated at 4.8 but we may need to resume K soon. Renal status stable Rn to call wound team regarding excoriation under left breast. INR is therapeutic; high risk medication in use. Encourage PT/OT/activity as siva. Discussed with Dr. Pittman and with Dr. Ruvalcaba. 2/2 Given increased edema and increase in weight. We will give an additional 40 milligrams of Lasix both this evening and tomorrow evening. Recheck BMP tomorrow morning to follow electrolytes and renal function. Patient may need additional testing supplementation. Discussed importance of bowel motivation. Continue on current regimen Oral Dulcolax, Colace, senna plus, MiraLAX, milk of magnesia. Did also add Dulcolax suppository and encouraged nursing to try a brown cow. Recommend using suppository. By this evening if no bowel movements. This will also help with fluid retention and edema. Otherwise doing well. 2/3 His wt is up 6kg since yesterday which is likely an error. Clinically this does not appear to be the case. He is difficult to weigh. Will reweigh in the am. Will cancel the extra dose of Lasix as ordered this evening given his drop in sodium. His urine is dark, breathing is ok and swelling is less. Likely doesn't need further diuresis. Sodium down to 126 from 132 yesterday. Will continue to follow. Case discussed with Dr. Thomas. 03/27 Sodium is again down to 124. Nursing staff does report patient drinks "numerous pitchers of water a day". This is likely attributing to hyponatremia. Weight yesterday at baseline admission weight. Continue to watch daily weights Will decrease second Lasix dose to 40mg at 1400 and continue with 60 mg in the am 2/7 Recurrent syncope -- check EKG, trop x3, CT head, CXR Acute encephalopathy -- poss r/t hyponatremia; Na down to 123 today ? intervascularly dry Hold Lasix this afternoon. Hold metolazone. Give NS 500 mL IVF today. Cont wound care -- asks about dsg options other than Mepilex EKG personally reviewed: A-fib with controlled rate; No ST elevation/depression ; RBBB; +Q wave lat leads CXR personally reviewed: no pulmonary congestion/infiltrate Trop #1 = 0.[address] pending. I spoke with Dr. Ang from [place]. During his 90+ day SNF stay he showed only minimal improvement in functional status. He tends to run about 128-130 on sodium level, with elevated bicarb as well. He has had several syncopal episodes during his SNF stay. Diuretics at time of dc were: Spironolactone 25 mg BID, metolazone 5 mg daily, and Lasix [address] Ang noted anasarca while at [facility]. LTC placement was recommended but pt/ declined. 03/29 Encephalopathy is better today. Na still low but increased to 125 after fluid bolus yesterday/holding diuretics. He had Lasix this morning but will hold the rest of his diuretics today. Recheck BMP/mg in am to re-eval electrolytes/renal function and possibly resume diuretics. I did reach Dr. Ang yesterday, who reported that Devendra was on Spironolactone 25 mg BID, metolazone 5 mg daily, and Lasix 80 mg BID while at [facility] in [place]. Oxycodone and gabapentin doses reduced today per Dr. Pittman. Movantik started for opioid induced constipation IRU team meeting planned this afternoon to discuss discharge plans. 03/30 Multifactorial encephalopathy -- Very drowsy with delayed processing and/or verbal responses. Gabapentin dose further adjusted per Dr. Pittman. Could be r/t hyponatremia; difficult to assess intravascular fluid status. Weight is down from 135 kg yesterday to 129.5 this am, and diuretics have been on hold for 2 days. ABG ordered, but pt was not hypercarbic or acidotic. Another consideration is depression, and we may want to consider psych consultation. Case was discussed with Dr. Mcintosh. Spironolactone can cause hyponatremia and he recommends decreasing dose to 25 mg. He also recommends restarting Lasix but continue to hold metolazone, start tele d/t syncope and hx a-fib, tighten fluid restriction from 1500 to 6905-9614 ml/day, check orthostatics if able, and obtain an echo. He will see Devendra either tonight or tomorrow am. In addition, records have been requested from Dr. Cesar's office at [facility] in [place]. He has been afebrile; UC pending. Sigala in place. Pt may have plateaued from a functional perspective and CM is looking into other placement options. Plan - 03/31/17. Mr. Miller multifactorial encephalopathy appears improved today as compared to yesterday. Family expressed concern about increased somnolence this morning after the patient received his gabapentin. Dr. Pittman was contacted and his gabapentin dose was decreased to 100mg TID. Will continue to monitor. Patient was seen by Dr. Mcintosh this morning for further evaluation of his diastolic CHF. He discussed his recommendations with Dr. Moran and stated that he felt the patient was hypovolemic. Will start NS 75cc/hr for hydration. Monitor fluid status closely in addition to urinary output for signs of fluid overload. Given his hyponatremia, will stop his spironolactone, Lasix and KCl and continue to hold his metolazone. Fluid restriction was discontinued. Will continue metoprolol 25mg BID as well as coumadin per Dr. Mcintosh. Will recheck has labs in the AM to monitor blood counts, electrolytes and renal function. Slight increase in leukocytosis at 14.5 with 7% bands. Patient remains afebrile. Prior UA obtained revealed + nitrite with 30-50 WBC and 1+ bacteria. Culture revealed mixed daryl. Will recheck CXR and UA in AM and continue to monitor closely for signs of deterioration or infection. Concern that the patient may have plateaued from a functional perspective. Case management continues to work on discharge planning. Anticipate discharge early next week, hopefully on 04/03/17 to [facility] in [place], per family. Plan - 04/01/17. Clinically, Devendra appears improved today with improved mentation after reduction in gabapentin per Dr. Pittman yesterday. He does admit to increased pain to his lower extremities with the reduction in the gabapentin but appreciates the improved mentation. Continue to encourage participation in therapies and pain control per Dr. Pittman. Significant concern and anxiety regarding pain during transfer to [place]. Patient requested to receive Gabapentin 200mg x 1 dose immediately prior to discharge as he received great pain control with the dose and would appreciate the increased somnolence during the ambulance ride. He also requested to be able to receive another dose of gabapentin or pain medication immediately prior to arrival in [place] to maintain his pain medication schedule knowing that he will not be able to receive medications immediately on his arrival to [facility]. Will discuss patient wishes with Dr. Pittman. Patient was seen by Dr. Mcintosh on 03/31/17 and felt the patient was hypovolemic. NS 75cc was stated with improvement in hyponatremia (Na 128). Continue NS 75cc/hr and monitor closely for signs of fluid overload. At the recommendation of Dr. Mcintosh, his spironolactone, Lasix and KCl were discontinued and his metolazone remains on hold given his hypovolemia. Fluid restriction was also lifted. Consider restarting diuretics, possibly at lower dose at time of admission. Will continue metoprolol 25mg BID as well as coumadin per Dr. Mcintosh. Will recheck CBC and BMP in AM to continue to monitor blood counts, electrolytes and renal function. Case management continues to work on discharge planning. Anticipate discharge early next week, hopefully on 04/03/17 to [facility] in [place], per family. 04/02/17 Sodium improved to 131. Continue IVF and continue to hold diuretics, appreciate Dr. Mcintosh's expertise. Plans for transfer to [facility] on 04/03 fell through. CM looking at other options. UC from 04/01 shows early growth -- cath specimen. Records received from [facility] in [place] (aerodynamics teacher: Dr. Cesar): EF >55 %; longstanding hx of a-fib
--- NOTE | 2017-04-02 15:14 | Wound Care Progress Note ---
Wound Center Progress Note: In to see pt this day and at this time and ask to not have dressings changed at this time, will return in the morning.
[2017-04-03] MEDS: Oxycodone *IR* 5 MG TABLET PO PRN ×6 (02:45→22:12)
[2017-04-03] MEDS: ALBUTEROL 2.5mg/0.5ml (0.5%) NEB AEROSOL SCH ×4 (05:06→19:55)
[2017-04-03] MEDS: NALOXEGOL 12.5 MG TABLET PO SCH (06:27)
[2017-04-03] MEDS: PANTOPRAZOLE 40 MG TABLET PO SCH (06:27)
[2017-04-03] MEDS: LEVOTHYROXINE 50 MCG TABLET PO SCH (06:27)
[2017-04-03] MEDS: NS 1,000 ML IV SCH ×2 (08:19→21:43)
[2017-04-03] MEDS: ACETAMINOPHEN 325 MG TABLET PO PRN ×2 (08:35→16:10)
[2017-04-03] MEDS: NYSTATIN 500,000 units/5 ml ORAL LIQUID PO SCH ×4 (08:35→20:30)
[2017-04-03] MEDS: SENNA + DOCUSATE TABLET PO SCH ×2 (08:36→20:28)
[2017-04-03] MEDS: SIMETHICONE 80 MG CHEWABLE TABLET PO SCH ×4 (08:36→20:29)
[2017-04-03] MEDS: LACTOBACILLUS (15B cfu) CAPSULE PO SCH (08:36)
[2017-04-03] MEDS: ASCORBIC ACID 500 MG TABLET PO SCH (08:36)
[2017-04-03] MEDS: FERROUS SULFATE 324 MG TABLET PO SCH (08:36)
[2017-04-03] MEDS: GUAIFENESIN 400MG TABLET PO SCH ×4 (08:37→20:30)
[2017-04-03] MEDS: GABAPENTIN 100 MG CAPSULE PO SCH ×3 (08:37→20:27)
[2017-04-03] MEDS: ESCITALOPRAM 20 MG TABLET PO SCH (08:37)
[2017-04-03] MEDS: PredniSONE 20 MG TABLET PO SCH (08:37)
[2017-04-03] MEDS ORDERED: GABAPENTIN 100 MG CAPSULE PO ONE (09:00)
--- NOTE | 2017-04-03 10:08 | Progress Note ---
- Date 04/03/17 Subjective: Devendra is about the same and w/out new complaints. He slept well last night. His pain is reasonably controlled. No abdominal or GI sx and appetite has been stable. Barbara wasn't in the room this am. Objective Vital signs: Temperature 98.1 F 04/03/17 08:00 Pulse Rate 81 04/03/17 08:00 Respiratory Rate 24 04/03/17 08:00 Blood Pressure 100/64 04/03/17 08:00 Pulse Oximetry 97 04/03/17 08:00 Height/Weight/BMI: Height 1.7 m Weight 132.2 kg Body Mass Index 45.0 - Constitutional Present: no acute distress, well nourished, well developed - Routine HEENT Exam Head: Present: cushingoid faces Eye: Present: PERRL. Absent: conjunctival icterus, scleral injection - Routine Respiratory Exam Present: decreased breath sounds (bases) - Routine Cardiovascular Exam Present: irregularly irregular - Routine Abdominal Exam Present: soft, normoactive bowel sounds, non tender - Routine Extremities Exam Present: edema (improving to lower abdomen and thighs) - Routine Skin Exam Comments: multiple lesions; multiple wounds covered with gauze or mepilex back is erythematous w/ frail, thin, and abraded appearing skin - Routine Neurological Exam Present: alert, oriented X3 - Routine Psychiatric Exam Present: normal affect, normal thought process, cooperative Results - Labs CBC & Chem 7: 04/02/17 04:07 04/02/17 06:20 Microbiology Results: Microbiology 04/01/17 19:43 Urine, Cath Sigala Urine Culture - Final Mixed Bacterial Daryl 03/30/17 02:46 Urine, Cath Sigala, Chronic Urine Culture - Final Mixed Bacterial Daryl Present -No further testing will be performed Assessment and Plan (1) Myopathy Current visit: Yes Status: Acute (2) Squamous cell skin cancer Current visit: Yes Status: Chronic (3) Acute on chronic respiratory failure with hypoxemia Current visit: Yes Status: Acute Assessment and Plan: Impression Syncope, recurrent and chronic: workup negative Acute encephalopathy - improved Generalized Myopathy Skin lesions consistent with basal cell and squamous cell carcinoma Recent influenza A with continued hypoxia. Hyponatremia, chronic, baseline 128-130 Intertriginous dermatitis Chronic atrial fibrillation Congestive heart failure. 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 Hypothyroidism - resumed levothyroxine on 03/18/17 history of asthma history of seizures Plan - 04/02/17. Medically improving -- cont IVF and holding diuretics for now. Anticipate re- eval by Dr. Mcintosh and appreciate his expertise. Repeat BMP in am. Cont wound care. UC from 04/01 shows mixed daryl. CM examining dc options. DVT Prophylaxis: Coumadin Resuscitation Status: Do Not Resuscitate - Physician Narrative Narrative: Date: 04/03/17 Time: 1003 Hospital Course Summary Disclaimer: The visit summary below is not to be considered part of the above Progress Note. Hospital Course: Plan Agree with admission to inpatient rehabilitation unit under the care of Dr. Pittman for significant myopathy and weakness secondary to recent acute hospitalization and illness. Patient does have a very complex past medical history and current chronic comorbidities. Appreciate hospitalist consultation for assistance in medical management. Consultation placed with the wound care team for evaluation and recommendations of ongoing wound care. Left leg squamous cell carcinoma-stable. Patient scheduled to follow with radiation oncology once medically improved. does report that she would like to use her homemade "save" which contains eggplant an essential oil. Consult to pharmacy for ongoing management of INR and Coumadin dosing. Patient has known positive urine culture for VRE. Will forego any treatment. Given chronic colonization of indwelling Sigala catheter Patient does wish to be a full code and this orders written. Appreciate medical consultation, the hospitalist services will continue to follow patient medically manage his existing comorbidities during his stay on IRU unit. At time of discharge his medical care will return to his primary care provider in Dr. Doug Ang in [place] 03/18/17 Give additional Lasix 40 mg PO now; start daily weights. Sounds like he has a hx of flash pulmonary edema; reports he was previously on Lasix TID then was decreased to BID -- monitor fluid status closely as we may need to provide extra diuresis periodically versus adding another dose in the afternoon. Will recheck BMP in am. Change dosing of gabapentin to 300 mg TID and 300 mg at 0200, per 's request. Increase simethicone to home dosing schedule. Resume levothyroxine 50 mcg -- he took this in [place]. Consider wound consultation. Suspect mild leukocytosis is chronic given prednisone use though will recheck CBC in am to document stability. INR is therapeutic. 03/20/17 Na decreased to 125 but exam suggests fluid positive state. Will increase Lasix to 60 mg BID, starting this afternoon. Will resume spironolactone. Wait on resuming KDur since K was still elevated at 4.8 but we may need to resume K soon. Renal status stable Rn to call wound team regarding excoriation under left breast. INR is therapeutic; high risk medication in use. Encourage PT/OT/activity as siva. Discussed with Dr. Pittman and with Dr. Ruvalcaba. 2/2 Given increased edema and increase in weight. We will give an additional 40 milligrams of Lasix both this evening and tomorrow evening. Recheck BMP tomorrow morning to follow electrolytes and renal function. Patient may need additional testing supplementation. Discussed importance of bowel motivation. Continue on current regimen Oral Dulcolax, Colace, senna plus, MiraLAX, milk of magnesia. Did also add Dulcolax suppository and encouraged nursing to try a brown cow. Recommend using suppository. By this evening if no bowel movements. This will also help with fluid retention and edema. Otherwise doing well. 2/3 His wt is up 6kg since yesterday which is likely an error. Clinically this does not appear to be the case. He is difficult to weigh. Will reweigh in the am. Will cancel the extra dose of Lasix as ordered this evening given his drop in sodium. His urine is dark, breathing is ok and swelling is less. Likely doesn't need further diuresis. Sodium down to 126 from 132 yesterday. Will continue to follow. Case discussed with Dr. Thomas. 03/27 Sodium is again down to 124. Nursing staff does report patient drinks "numerous pitchers of water a day". This is likely attributing to hyponatremia. Weight yesterday at baseline admission weight. Continue to watch daily weights Will decrease second Lasix dose to 40mg at 1400 and continue with 60 mg in the am 03/28 Recurrent syncope -- check EKG, trop x3, CT head, CXR Acute encephalopathy -- poss r/t hyponatremia; Na down to 123 today ? intervascularly dry Hold Lasix this afternoon. Hold metolazone. Give NS 500 mL IVF today. Cont wound care -- asks about dsg options other than Mepilex EKG personally reviewed: A-fib with controlled rate; No ST elevation/depression ; RBBB; +Q wave lat leads CXR personally reviewed: no pulmonary congestion/infiltrate Trop #1 = 0.[address] pending. I spoke with Dr. Ang from [place]. During his 90+ day SNF stay he showed only minimal improvement in functional status. He tends to run about 128-130 on sodium level, with elevated bicarb as well. He has had several syncopal episodes during his SNF stay. Diuretics at time of dc were: Spironolactone 25 mg BID, metolazone 5 mg daily, and Lasix [address] Ang noted anasarca while at [facility]. LTC placement was recommended but pt/ declined. 03/29 Encephalopathy is better today. Na still low but increased to 125 after fluid bolus yesterday/holding diuretics. He had Lasix this morning but will hold the rest of his diuretics today. Recheck BMP/mg in am to re-eval electrolytes/renal function and possibly resume diuretics. I did reach Dr. Ang yesterday, who reported that Devendra was on Spironolactone 25 mg BID, metolazone 5 mg daily, and Lasix 80 mg BID while at [facility] in [place]. Oxycodone and gabapentin doses reduced today per Dr. Pittman. Movantik started for opioid induced constipation IRU team meeting planned this afternoon to discuss discharge plans. 03/30 Multifactorial encephalopathy -- Very drowsy with delayed processing and/or verbal responses. Gabapentin dose further adjusted per Dr. Pittman. Could be r/t hyponatremia; difficult to assess intravascular fluid status. Weight is down from 135 kg yesterday to 129.5 this am, and diuretics have been on hold for 2 days. ABG ordered, but pt was not hypercarbic or acidotic. Another consideration is depression, and we may want to consider psych consultation. Case was discussed with Dr. Mcintosh. Spironolactone can cause hyponatremia and he recommends decreasing dose to 25 mg. He also recommends restarting Lasix but continue to hold metolazone, start tele d/t syncope and hx a-fib, tighten fluid restriction from 1500 to 4300-2229 ml/day, check orthostatics if able, and obtain an echo. He will see Devendra either tonight or tomorrow am. In addition, records have been requested from Dr. Cesar's office at [facility] in [place]. He has been afebrile; UC pending. Sigala in place. Pt may have plateaued from a functional perspective and CM is looking into other placement options. Plan - 03/31/17. Mr. Miller multifactorial encephalopathy appears improved today as compared to yesterday. Family expressed concern about increased somnolence this morning after the patient received his gabapentin. Dr. Pittman was contacted and his gabapentin dose was decreased to 100mg TID. Will continue to monitor. Patient was seen by Dr. Mcintosh this morning for further evaluation of his diastolic CHF. He discussed his recommendations with Dr. Moran and stated that he felt the patient was hypovolemic. Will start NS 75cc/hr for hydration. Monitor fluid status closely in addition to urinary output for signs of fluid overload. Given his hyponatremia, will stop his spironolactone, Lasix and KCl and continue to hold his metolazone. Fluid restriction was discontinued. Will continue metoprolol 25mg BID as well as coumadin per Dr. Mcintosh. Will recheck has labs in the AM to monitor blood counts, electrolytes and renal function. Slight increase in leukocytosis at 14.5 with 7% bands. Patient remains afebrile. Prior UA obtained revealed + nitrite with 30-50 WBC and 1+ bacteria. Culture revealed mixed daryl. Will recheck CXR and UA in AM and continue to monitor closely for signs of deterioration or infection. Concern that the patient may have plateaued from a functional perspective. Case management continues to work on discharge planning. Anticipate discharge early next week, hopefully on 04/03/17 to [facility] in [place], per family. Plan - 04/01/17. Clinically, Devendra appears improved today with improved mentation after reduction in gabapentin per Dr. Pittman yesterday. He does admit to increased pain to his lower extremities with the reduction in the gabapentin but appreciates the improved mentation. Continue to encourage participation in therapies and pain control per Dr. Pittman. Significant concern and anxiety regarding pain during transfer to [place]. Patient requested to receive Gabapentin 200mg x 1 dose immediately prior to discharge as he received great pain control with the dose and would appreciate the increased somnolence during the ambulance ride. He also requested to be able to receive another dose of gabapentin or pain medication immediately prior to arrival in [place] to maintain his pain medication schedule knowing that he will not be able to receive medications immediately on his arrival to [facility]. Will discuss patient wishes with Dr. Pittman. Patient was seen by Dr. Mcintosh on 03/31/17 and felt the patient was hypovolemic. NS 75cc was stated with improvement in hyponatremia (Na 128). Continue NS 75cc/hr and monitor closely for signs of fluid overload. At the recommendation of Dr. Mcintosh, his spironolactone, Lasix and KCl were discontinued and his metolazone remains on hold given his hypovolemia. Fluid restriction was also lifted. Consider restarting diuretics, possibly at lower dose at time of admission. Will continue metoprolol 25mg BID as well as coumadin per Dr. Mcintosh. Will recheck CBC and BMP in AM to continue to monitor blood counts, electrolytes and renal function. Case management continues to work on discharge planning. Anticipate discharge early next week, hopefully on 04/03/17 to [facility] in [place], per family. 04/02/17 Sodium improved to 131. Continue IVF and continue to hold diuretics, appreciate Dr. Mcintosh's expertise. Plans for transfer to [facility] on 04/03 fell through. CM looking at other options. UC from 04/01 shows early growth -- cath specimen. Records received from [facility] in [place] (parts consultant: Dr. Cesar): EF >55 %; longstanding hx of a-fib
[2017-04-03] MEDS: COENZYME Q-10 200mg TABLET PO SCH (10:14)
--- NOTE | 2017-04-03 11:17 | IRU Progress Note ---
- Subjective/Serverity of Illness Date: 04/03/17 Devendra was assessed in his room on inpatient rehabilitation. In addition I talked with his Barbara subsequently in the hallway. Devendra appears to be somewhat subdued and perhaps depressed. He states his pain is adequately controlled. Barbara feels as though he may be a bit fluid excess. However at the present time I do not detect much in the way of edema. Sodium yesterday was improved and 131. Dr. Mcintosh has been consulted regarding his fluid status etc. Echocardiogram revealed normal contractility. He likely does have heart failure with preserved ejection fraction. I discussed with Devendra what is barriers were to getting stronger. He indicated that he is simply weak. He says it is not pain that is preventing him from getting stronger. I do feel as though influenza has lowered his exercise tolerance level. This, combined with perhaps some depression (and chronic debility, deconditioning, COPD and chronic steroid use) is accounting for his weakness. I told him that the further way we can get from the influenza infection, the stronger he would hopefully become. With regard to his wounds, the back is quite red at the present time although improved with regard to actual wounds. Looks like he has a heat reaction or sensitivity to his back. Exam Vital Signs: Temperature 98.1 F 04/03/17 08:00 Pulse Rate 81 04/03/17 08:00 Respiratory Rate 24 04/03/17 08:00 Blood Pressure 100/64 04/03/17 08:00 Pulse Oximetry 97 04/03/17 08:00 Height/Weight/BMI: Height 1.7 m Weight 132.2 kg Body Mass Index 45.0 - Constitutional Present: no acute distress, well nourished, well developed, morbidly obese, cooperative - Routine HEENT Exam Head: Present: normocephalic Eye: Present: EOMI ENT: Present: mucous membranes moist, oropharynx clear - Routine Neck Exam Present: supple - Routine Respiratory Exam Present: decreased breath sounds, rhonchi (occasional rhonchi.). Absent: wheezes - Routine Cardiovascular Exam Present: S1, S2, irregularly irregular. Absent: murmur - Routine Abdominal Exam Present: soft, normoactive bowel sounds, non distended. Absent: tenderness - Routine Extremities Exam Present: no edema. Absent: cyanosis, clubbing - Routine Skin Exam Present: dry, warm, wounds Comments: Multiple skin lesions as before. His back is more red at the present time, likely due to heat. - Routine Neurological Exam Present: alert, oriented X3, CN II-XII intact - Routine Psychiatric Exam Present: normal thought process, depressed. Absent: normal affect (seems little subdued.) Results IRU - Labs Labs: I have reviewed other providers notes as well as lab work etc. IRU A/P (1) Myopathy Current visit: Yes Status: Acute Continues to be very weak. He is working with therapy. Progress is minimal. (2) Influenza A Current visit: Yes Status: Resolved (3) Rheumatoid arthritis Qualifiers: Rheumatoid arthritis location: multiple sites Rheumatoid factor presence: unspecified presence Qualified Code(s): M06.9 - Rheumatoid arthritis, unspecified Current visit: Yes Status: Chronic (4) Atrial fibrillation, chronic Current visit: Yes Status: Chronic Remains on warfarin with therapeutic INR. (5) (HFpEF) heart failure with preserved ejection fraction Current visit: Yes Status: Chronic (6) CKD (chronic kidney disease) stage 3, GFR 30-59 ml/min Current visit: Yes Status: Chronic (7) Squamous cell skin cancer Current visit: Yes Status: Chronic (8) Chronic indwelling Sigala catheter Current visit: Yes Status: Chronic (9) Acute on chronic respiratory failure with hypoxemia Current visit: Yes Status: Acute (10) Acute bronchospasm Current visit: Yes Status: Resolved (11) SONYA (obstructive sleep apnea) Current visit: Yes Status: Chronic (12) Slow transit constipation Current visit: Yes Status: Acute (13) Hyponatremia Current visit: Yes Status: Chronic (14) Neuropathic pain of both legs Current visit: Yes Status: Chronic (15) Syncope Qualifiers: Syncope type: unspecified Qualified Code(s): R55 - Syncope and collapse Current visit: Yes Status: Resolved DVT Prophylaxis: Coumadin Resuscitation Status: Do Not Resuscitate - Course Hospital Course: Pedro Pittmna MD: 03/16/17 12:11 Multiple medical problems as outlined. Severe weakness noted. Just getting started with therapies. 03/19/17 12:04 Patient is cooperative and participates with therapy although progress is quite slow. Continues to have expiratory wheezes. He is afebrile. Numerous skin lesions identified. would like to have lidocaine used for dressing removal. I will discuss with wound care. 03/20/17 10:44 Multiple skin lesions will require continued meticulous nursing management. Medically he seems stable. Lungs are clear. INR is therapeutic. He is participating with therapy. 03/22/17 11:35 Slow progression with therapy. Multiple skin lesions noted and being monitored by nursing including wound care nurse. INR subtherapeutic. 03/23/17 11:46 Slow progress with therapy. INR therapeutic. Complains of constipation. 03/26/17 14:53 Progress continues to be slow. Sodium down to 126. Weight was up to 133 and now down to 130 kg. Easy fatigability and continued evidence of critical illness/disuse myopathy. 03/27/17 10:30 Sodium down to 124. He is overdrinking fluids and he was advised not to do that. Now on a fluid restriction. Complains of pain in the right leg heel pad area but also throughout the leg. We will modify the gabapentin dose. 03/29/17 10:09 Patient remains very complex. Diuretics held. Sodium still low 125. Syncope yesterday. Somewhat slow to respond. We will reduce gabapentin. 03/30/17 11:22 Patient is more alert today. Exam is otherwise negative for changes. Weight is up. Sodium 125. Continues to be plateaued with therapy. 04/02/17 10:58 Patient continues to plateau with therapy. He does seem to be more awake and alert with less gabapentin. Sodium improved to 131 which may also help his mentation. Plans are to transfer to [facility] in [place] tomorrow. 04/03/17 11:19 Continues to have very poor exercise tolerance. Likely he is depressed. Continues to work with therapy. Placement in progress. - Interventions to Obtain Goals PT Treatment Plan: Balance/Proprioception, Functional Activities, Gait Training , Patient/Family Education, Therapeutic Exercise OT Treatment Plan: ADL (Basic Care), Balance Training, Pt./Family Education, Ther. Exercise for ADL Goals Progress/Modifications: I discussed the patient with case management as well as the patient and his . Placement is difficult. Since he has plateaued on acute rehabilitation and I do not think he can tolerate 3 hours daily, alternative placement is required. That is improving as. With regard to his wounds, we appreciate the assistance of wound care. His back is a bit red at the present time possibly related to the use of press and seal film. No evidence of infection is noted. Sodium was improved yesterday. Lungs reveal diminished breath sounds with occasional rhonchi. These are stable. He is not overtly wheezing at present. Extended time has been spent with the patient, his and with case management an effort to provide the best care possible as well as appropriate placement.
--- NOTE | 2017-04-03 13:30 | Cardiology Progress Note ---
Subjective Interval history: Patient having some cough productive of small amount of clear to yellowish secretions according to the nurse and the . Breathing remains comfortable on room air still uses his CPAP and intermittently just like before assessed normal room air about 97% per RN. Patient voices no complaints of angina dyspnea palpitations or dizziness. He is to feel weak all over he is in tears due to very sensitive skin due to on his back with the skin appears raw. He still dependent although has done some physical therapy according the . is concerned about generalized swelling. Swelling doesn't look worse to me. Chest x-ray from 2- doesn't show any pulmonary congestion Lungs are generally clear to my examination, see below. Sodium was up to 131 yesterday. No labs today. Plans for transfer to long-term facility in [place] were counseled due to patient being a poor rehabilitation candidate, unfortunately. Exam Vital signs: Temperature 98.1 F 04/03/17 08:00 Pulse Rate 81 04/03/17 08:00 Respiratory Rate 24 04/03/17 08:00 Blood Pressure 100/64 04/03/17 08:00 Pulse Oximetry 95 04/03/17 12:29 - Constitutional no acute distress, morbidly obese, cooperative, agitated - Routine HEENT Exam Head: Present: normocephalic, atraumatic Eye: Present: EOMI, PERRL ENT: Present: mucous membranes moist - Routine Neck Exam Present: normal carotid upstroke. Absent: JVD, carotid bruit, lymphadenopathy, thyromegaly - Routine Respiratory Exam Present: CTA bilaterally (the patient sit up using overhead support and after elevating the head of the bed.) - Routine Cardiovascular Exam Present: no murmur, irregularly irregular - Routine Abdominal Exam Present: soft, normoactive bowel sounds, non tender. Absent: organomegaly, mass - Routine Extremities Exam Present: no edema. Absent: cyanosis, clubbing - Routine Skin Exam Present: erythema, lesions (squamous cell), rash (generalized) - Routine Neurological Exam Present: alert, oriented X3, CN II-XII intact, moving all extremities, normal speech. Absent: facial asymmetry - Routine Psychiatric Exam Present: cooperative, depressed - Urinary Catheter Management Urethral Cath placed during this visit: no Results 04/02/17 04:07 04/02/17 06:20 Intake and Output 04/02/17 04/03/17 04/03/17 22:59 06:59 14:59 Intake Total 1000 / 1000 1000 / 1000 Output Total 650 / 650 Balance 1000 / 1000 -650 / -650 1000 / 1000 Intake: IV 1000 / 1000 1000 / 1000 Ns 1,000 ml @ 75 mls/hr IV . 1000 / 1000 1000 / 1000 [id number] [id number] Rx#:[id number] Output: Urine Amount (Catheter) 650 / 650 Other: Urine Color Light Sharmaine - EKG Interpretation EKG shows: atrial fibrillation (with a bundle branch block on telemetry, rate controlled) Assessment and Plan - Attestation Attestation Narrative: 04/03/17 13:33 DCHF appears to be hypovolemic, and is hyponatremic permanent(chronic) a fib positional syncope and presyncope (orthostatic) RBBB SONYA CKD recent influenza pneumonia and resp failure myopathy multiple chronic comorbidites Skin ulcers and wounds Rheumatoid arthritis on chronic steroids Anemia Consider DC IV fluids after this bag and recheck sodium level Consider sitting blood pressure readings, if feasible, to look for orthostasis Consider nutritional support to bring his albumin up may help with the positive oncotic pressure and reduce third spacing I agree with beta blockers and warfarin at this time. Overall and long-term prognosis unfortunately appears poor, due to general debility, very poor functional capacity and multiple chronic and post acute medical problems feel free to call me back if i could be of further assistance We'll follow the patient intermittently Hospital Course Summary Disclaimer: The visit summary below is not to be considered part of the above Progress Note. Hospital Course: Plan Agree with admission to inpatient rehabilitation unit under the care of Dr. Pittman for significant myopathy and weakness secondary to recent acute hospitalization and illness. Patient does have a very complex past medical history and current chronic comorbidities. Appreciate hospitalist consultation for assistance in medical management. Consultation placed with the wound care team for evaluation and recommendations of ongoing wound care. Left leg squamous cell carcinoma-stable. Patient scheduled to follow with radiation oncology once medically improved. does report that she would like to use her homemade "save" which contains eggplant an essential oil. Consult to pharmacy for ongoing management of INR and Coumadin dosing. Patient has known positive urine culture for VRE. Will forego any treatment. Given chronic colonization of indwelling Sigala catheter Patient does wish to be a full code and this orders written. Appreciate medical consultation, the hospitalist services will continue to follow patient medically manage his existing comorbidities during his stay on IRU unit. At time of discharge his medical care will return to his primary care provider in Dr. Doug Ang in [place] 03/18/17 Give additional Lasix 40 mg PO now; start daily weights. Sounds like he has a hx of flash pulmonary edema; reports he was previously on Lasix TID then was decreased to BID -- monitor fluid status closely as we may need to provide extra diuresis periodically versus adding another dose in the afternoon. Will recheck BMP in am. Change dosing of gabapentin to 300 mg TID and 300 mg at 0200, per 's request. Increase simethicone to home dosing schedule. Resume levothyroxine 50 mcg -- he took this in [place]. Consider wound consultation. Suspect mild leukocytosis is chronic given prednisone use though will recheck CBC in am to document stability. INR is therapeutic. 03/20/17 Na decreased to 125 but exam suggests fluid positive state. Will increase Lasix to 60 mg BID, starting this afternoon. Will resume spironolactone. Wait on resuming KDur since K was still elevated at 4.8 but we may need to resume K soon. Renal status stable Rn to call wound team regarding excoriation under left breast. INR is therapeutic; high risk medication in use. Encourage PT/OT/activity as siva. Discussed with Dr. Pittman and with Dr. Ruvalcaba. 2/2 Given increased edema and increase in weight. We will give an additional 40 milligrams of Lasix both this evening and tomorrow evening. Recheck BMP tomorrow morning to follow electrolytes and renal function. Patient may need additional testing supplementation. Discussed importance of bowel motivation. Continue on current regimen Oral Dulcolax, Colace, senna plus, MiraLAX, milk of magnesia. Did also add Dulcolax suppository and encouraged nursing to try a brown cow. Recommend using suppository. By this evening if no bowel movements. This will also help with fluid retention and edema. Otherwise doing well. 2/3 His wt is up 6kg since yesterday which is likely an error. Clinically this does not appear to be the case. He is difficult to weigh. Will reweigh in the am. Will cancel the extra dose of Lasix as ordered this evening given his drop in sodium. His urine is dark, breathing is ok and swelling is less. Likely doesn't need further diuresis. Sodium down to 126 from 132 yesterday. Will continue to follow. Case discussed with Dr. Thomas. 03/27 Sodium is again down to 124. Nursing staff does report patient drinks "numerous pitchers of water a day". This is likely attributing to hyponatremia. Weight yesterday at baseline admission weight. Continue to watch daily weights Will decrease second Lasix dose to 40mg at 1400 and continue with 60 mg in the am 03/28 Recurrent syncope -- check EKG, trop x3, CT head, CXR Acute encephalopathy -- poss r/t hyponatremia; Na down to 123 today ? intervascularly dry Hold Lasix this afternoon. Hold metolazone. Give NS 500 mL IVF today. Cont wound care -- asks about dsg options other than Mepilex EKG personally reviewed: A-fib with controlled rate; No ST elevation/depression ; RBBB; +Q wave lat leads CXR personally reviewed: no pulmonary congestion/infiltrate Trop #1 = 0.[address] pending. I spoke with Dr. Ang from [place]. During his 90+ day SNF stay he showed only minimal improvement in functional status. He tends to run about 128-130 on sodium level, with elevated bicarb as well. He has had several syncopal episodes during his SNF stay. Diuretics at time of dc were: Spironolactone 25 mg BID, metolazone 5 mg daily, and Lasix [address] Ang noted anasarca while at [facility]. LTC placement was recommended but pt/ declined. 03/29 Encephalopathy is better today. Na still low but increased to 125 after fluid bolus yesterday/holding diuretics. He had Lasix this morning but will hold the rest of his diuretics today. Recheck BMP/mg in am to re-eval electrolytes/renal function and possibly resume diuretics. I did reach Dr. Ang yesterday, who reported that Devendra was on Spironolactone 25 mg BID, metolazone 5 mg daily, and Lasix 80 mg BID while at [facility] in [place]. Oxycodone and gabapentin doses reduced today per Dr. Pittman. Movantik started for opioid induced constipation IRU team meeting planned this afternoon to discuss discharge plans. 03/30 Multifactorial encephalopathy -- Very drowsy with delayed processing and/or verbal responses. Gabapentin dose further adjusted per Dr. Pittman. Could be r/t hyponatremia; difficult to assess intravascular fluid status. Weight is down from 135 kg yesterday to 129.5 this am, and diuretics have been on hold for 2 days. ABG ordered, but pt was not hypercarbic or acidotic. Another consideration is depression, and we may want to consider psych consultation. Case was discussed with Dr. Mcintosh. Spironolactone can cause hyponatremia and he recommends decreasing dose to 25 mg. He also recommends restarting Lasix but continue to hold metolazone, start tele d/t syncope and hx a-fib, tighten fluid restriction from 1500 to 0468-1339 ml/day, check orthostatics if able, and obtain an echo. He will see Devendra either tonight or tomorrow am. In addition, records have been requested from Dr. Cesar's office at [facility] in [place]. He has been afebrile; UC pending. Sigala in place. Pt may have plateaued from a functional perspective and CM is looking into other placement options. Plan - 03/31/17. Mr. Miller multifactorial encephalopathy appears improved today as compared to yesterday. Family expressed concern about increased somnolence this morning after the patient received his gabapentin. Dr. Pittman was contacted and his gabapentin dose was decreased to 100mg TID. Will continue to monitor. Patient was seen by Dr. Mcintosh this morning for further evaluation of his diastolic CHF. He discussed his recommendations with Dr. Moran and stated that he felt the patient was hypovolemic. Will start NS 75cc/hr for hydration. Monitor fluid status closely in addition to urinary output for signs of fluid overload. Given his hyponatremia, will stop his spironolactone, Lasix and KCl and continue to hold his metolazone. Fluid restriction was discontinued. Will continue metoprolol 25mg BID as well as coumadin per Dr. Mcintosh. Will recheck has labs in the AM to monitor blood counts, electrolytes and renal function. Slight increase in leukocytosis at 14.5 with 7% bands. Patient remains afebrile. Prior UA obtained revealed + nitrite with 30-50 WBC and 1+ bacteria. Culture revealed mixed daryl. Will recheck CXR and UA in AM and continue to monitor closely for signs of deterioration or infection. Concern that the patient may have plateaued from a functional perspective. Case management continues to work on discharge planning. Anticipate discharge early next week, hopefully on 04/03/17 to [facility], per family. Plan - 04/01/17. Clinically, Devendra appears improved today with improved mentation after reduction in gabapentin per Dr. Pittman yesterday. He does admit to increased pain to his lower extremities with the reduction in the gabapentin but appreciates the improved mentation. Continue to encourage participation in therapies and pain control per Dr. Pittman. Significant concern and anxiety regarding pain during transfer to [place]. Patient requested to receive Gabapentin 200mg x 1 dose immediately prior to discharge as he received great pain control with the dose and would appreciate the increased somnolence during the ambulance ride. He also requested to be able to receive another dose of gabapentin or pain medication immediately prior to arrival in [place] to maintain his pain medication schedule knowing that he will not be able to receive medications immediately on his arrival to [facility]. Will discuss patient wishes with Dr. Pittman. Patient was seen by Dr. Mcintosh on 03/31/17 and felt the patient was hypovolemic. NS 75cc was stated with improvement in hyponatremia (Na 128). Continue NS 75cc/hr and monitor closely for signs of fluid overload. At the recommendation of Dr. Mcintosh, his spironolactone, Lasix and KCl were discontinued and his metolazone remains on hold given his hypovolemia. Fluid restriction was also lifted. Consider restarting diuretics, possibly at lower dose at time of admission. Will continue metoprolol 25mg BID as well as coumadin per Dr. Mcintosh. Will recheck CBC and BMP in AM to continue to monitor blood counts, electrolytes and renal function. Case management continues to work on discharge planning. Anticipate discharge early next week, hopefully on 04/03/17 to [facility], per family. 04/02/17 Sodium improved to 131. Continue IVF and continue to hold diuretics, appreciate Dr. Mcintosh's expertise. Plans for transfer to [facility] on 04/03 fell through. CM looking at other options. UC from 04/01 shows early growth -- cath specimen. Records received from [facility] in [place] (wood floor layer: Dr. Cesar): EF >55 %; longstanding hx of a-fib
[2017-04-03] MEDS: WARFARIN 2.5 MG TABLET PO SCH (13:39)
[2017-04-03] MEDS: CALCIUM CARBONATE Chewable 500mg TABLET PO SCH (13:41)
[2017-04-04] MEDS: Oxycodone *IR* 5 MG TABLET PO PRN ×6 (02:11→23:53)
[2017-04-04] MEDS: ALBUTEROL 2.5mg/3ml (0.083%) NEB AEROSOL PRN (02:31)
[2017-04-04] MEDS: ALBUTEROL 2.5mg/0.5ml (0.5%) NEB AEROSOL SCH ×4 (05:41→20:07)
[2017-04-04] MEDS: SALINE FLUSH 10ml SYRINGE IV PRN ×2 (06:53→08:07)
[2017-04-04] MEDS: LEVOTHYROXINE 50 MCG TABLET PO SCH (06:54)
[2017-04-04] MEDS: PANTOPRAZOLE 40 MG TABLET PO SCH (06:54)
[2017-04-04] MEDS: NALOXEGOL 12.5 MG TABLET PO SCH (06:54)
[2017-04-04] MEDS: NYSTATIN 500,000 units/5 ml ORAL LIQUID PO SCH ×4 (08:05→21:49)
[2017-04-04] MEDS: SIMETHICONE 80 MG CHEWABLE TABLET PO SCH ×5 (08:06→21:49)
[2017-04-04] MEDS: COENZYME Q-10 200mg TABLET PO SCH (08:06)
[2017-04-04] MEDS: PredniSONE 20 MG TABLET PO SCH (08:06)
[2017-04-04] MEDS: LACTOBACILLUS (15B cfu) CAPSULE PO SCH (08:06)
[2017-04-04] MEDS: ASCORBIC ACID 500 MG TABLET PO SCH (08:06)
[2017-04-04] MEDS: ESCITALOPRAM 20 MG TABLET PO SCH (08:07)
[2017-04-04] MEDS: SENNA + DOCUSATE TABLET PO SCH ×2 (08:07→21:50)
[2017-04-04] MEDS: GABAPENTIN 100 MG CAPSULE PO SCH ×3 (08:07→20:24)
[2017-04-04] MEDS: FERROUS SULFATE 324 MG TABLET PO SCH (08:07)
[2017-04-04] MEDS: GUAIFENESIN 400MG TABLET PO SCH ×4 (08:08→21:50)
[2017-04-04] MEDS: ACETAMINOPHEN 325 MG TABLET PO PRN ×2 (09:31→18:14)
[2017-04-04] MEDS: NS 1,000 ML IV SCH (09:40)
--- NOTE | 2017-04-04 10:17 | Pharmacy Consult ---
Pharmacy Consult-Warfarin - Laboratory Information 03/16/17 03/17/17 03/18/17 05:38 04:50 04:47 INR 2.18 H 2.04 H 2.00 H 03/19/17 03/20/17 03/21/17 04:07 04:19 04:18 INR 2.05 H 2.09 H 1.81 H 03/22/17 03/23/17 03/24/17 04:55 04:45 05:34 INR 1.88 H 2.09 H 2.35 H 03/25/17 03/27/17 03/29/17 03:53 04:09 04:43 INR 2.59 H 2.62 H 2.62 H 04/01/17 04/04/17 04:52 04:34 INR 2.17 H 2.20 H - Consult Information Warfarin Dosing Protocol: 76 y.o. Male with history of A. Fib. and chronic anticoagulation with warfarin. Home dose reported as Warfarin 2mg daily, except on Fridays takes 1mg. goal INR range= 2.0 to 3.0 Date INR dose 03/15 - 2 mg 03/16 2.18 2 mg 03/17 2.04 2 mg 03/18 2.00 2.5 mg 03/19 2.05 2.5 mg 03/20 2.09 2.5 mg 03/21 1.81 3 mg 03/22 1.88 3 mg 03/23 2.09 3 mg 03/24 2.35 3 mg 03/25 2.59 2.5 mg daily and INR's , 03/27 2.62 2.5 mg 03/28 ---- 2.5 mg 03/29 2.62 2.5 mg daily and change INR's to Courtney, We 04/01 2.17 2.5 mg daily 04/04 2.20 continue Warfarin 2.5 mg po daily INR is in therapeutic range, continue the Warfarin 2.5 mg p.o. daily. The Pharmacy will continue to monitor and adjust the warfarin dose. Thank you, Sienna Reid [facility]
[2017-04-04] MEDS: CALCIUM CARBONATE Chewable 500mg TABLET PO SCH (12:49)
[2017-04-04] MEDS: WARFARIN 2.5 MG TABLET PO SCH (12:49)
--- NOTE | 2017-04-04 16:00 | Wound Care Progress Note ---
Wound Center Progress Note: In to see pt at this time, he is not very talkative and appears to be depressed. At this time we assessed his back which looks better now that we have been keeping the dressing off and it is red from the heat of the press and seal but, in general his skin on his back looks better. At this time his bottom is dark in color but is blanchable. Advanced skin protection applied to back and bottom, then when dried from the skin protectant barrier cream applied and a fresh press and seal was placed. Bilateral knee dressings were changed left knee is much better, less red. Right knee had a skin tear that Pomogren was applied and then mepilex bilaterally. The dressings on the right lower leg were changed and assessed, reapplied calcium alginate and large mepliex applied x3. Pt continues to refuse yellow akash boots, or cushioned heel pads.
--- NOTE | 2017-04-04 17:15 | Progress Note ---
- Date 04/04/17 Subjective: Patient is seen due to increasing swelling, tenderness and redness to an area on the left side of the lower neck. He states he's had a "lump" there for quite some time, but it is usually not red or tender. He's had no fever. He's had some burning to the eyes. has noticed some mattering. She is using a warm compress and Visine. He continues to have a cough. Objective Vital signs: Temperature 97.9 F 04/04/17 14:58 Pulse Rate 71 04/04/17 14:58 Respiratory Rate 18 04/04/17 16:32 Blood Pressure 108/65 04/04/17 14:58 Pulse Oximetry 98 04/04/17 14:58 Height/Weight/BMI: Height 1.7 m Weight 131 kg Body Mass Index 45.0 - Constitutional Present: no acute distress, obese - Routine HEENT Exam Eye: Absent: conjunctival icterus Comments: Have some light yellow mattering under the right eye - Routine Respiratory Exam Present: CTA bilaterally - Routine Cardiovascular Exam Present: irregularly irregular - Routine Skin Exam Comments: Proximal to the left neck, patient has an approximately 1 x 2 cm indurated area of erythema, swelling and tenderness without fluctuance. No lymphadenopathy in the neck. - Routine Neurological Exam Present: alert - Routine Psychiatric Exam Present: normal affect, cooperative Results - Labs CBC & Chem 7: 04/02/17 04:07 04/04/17 04:34 Microbiology Results: Microbiology 04/01/17 19:43 Urine, Cath Sigala Urine Culture - Final Mixed Bacterial Daryl 03/30/17 02:46 Urine, Cath Sigala, Chronic Urine Culture - Final Mixed Bacterial Daryl Present -No further testing will be performed Assessment and Plan (1) Myopathy Current visit: Yes Status: Acute (2) Squamous cell skin cancer Current visit: Yes Status: Chronic (3) Acute on chronic respiratory failure with hypoxemia Current visit: Yes Status: Acute Assessment and Plan: Impression Infected sebaceous cyst proximal to left side of neck Syncope, recurrent and chronic: workup negative Acute encephalopathy - improved Generalized Myopathy Skin lesions consistent with basal cell and squamous cell carcinoma Recent influenza A with continued hypoxia. Hyponatremia, chronic, baseline 128-130 Intertriginous dermatitis Chronic atrial fibrillation Congestive heart failure. 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 Hypothyroidism - resumed levothyroxine on 03/18/17 history of asthma history of seizures Plan Start doxycycline 100 mg twice a day for infected sebaceous cyst. reports he has many allergies. Doxycycline is not listed. Use a warm moist compress to the area throughout the day. Check CBC in am. Will recheck the area tomorrow. Monitor for fever or worsening symptoms. Doesn' t appear appropriate for I&D at this time. - Physician Narrative Narrative: Date: 04/04/17 Time: 170 Hospital Course Summary Disclaimer: The visit summary below is not to be considered part of the above Progress Note. Hospital Course: Plan Agree with admission to inpatient rehabilitation unit under the care of Dr. Pittman for significant myopathy and weakness secondary to recent acute hospitalization and illness. Patient does have a very complex past medical history and current chronic comorbidities. Appreciate hospitalist consultation for assistance in medical management. Consultation placed with the wound care team for evaluation and recommendations of ongoing wound care. Left leg squamous cell carcinoma-stable. Patient scheduled to follow with radiation oncology once medically improved. does report that she would like to use her homemade "save" which contains eggplant an essential oil. Consult to pharmacy for ongoing management of INR and Coumadin dosing. Patient has known positive urine culture for VRE. Will forego any treatment. Given chronic colonization of indwelling Sigala catheter Patient does wish to be a full code and this orders written. Appreciate medical consultation, the hospitalist services will continue to follow patient medically manage his existing comorbidities during his stay on IRU unit. At time of discharge his medical care will return to his primary care provider in Dr. Doug Ang in [place] 03/18/17 Give additional Lasix 40 mg PO now; start daily weights. Sounds like he has a hx of flash pulmonary edema; reports he was previously on Lasix TID then was decreased to BID -- monitor fluid status closely as we may need to provide extra diuresis periodically versus adding another dose in the afternoon. Will recheck BMP in am. Change dosing of gabapentin to 300 mg TID and 300 mg at 0200, per 's request. Increase simethicone to home dosing schedule. Resume levothyroxine 50 mcg -- he took this in [place]. Consider wound consultation. Suspect mild leukocytosis is chronic given prednisone use though will recheck CBC in am to document stability. INR is therapeutic. 03/20/17 Na decreased to 125 but exam suggests fluid positive state. Will increase Lasix to 60 mg BID, starting this afternoon. Will resume spironolactone. Wait on resuming KDur since K was still elevated at 4.8 but we may need to resume K soon. Renal status stable Rn to call wound team regarding excoriation under left breast. INR is therapeutic; high risk medication in use. Encourage PT/OT/activity as siva. Discussed with Dr. Pittman and with Dr. Ruvalcaba. 2/2 Given increased edema and increase in weight. We will give an additional 40 milligrams of Lasix both this evening and tomorrow evening. Recheck BMP tomorrow morning to follow electrolytes and renal function. Patient may need additional testing supplementation. Discussed importance of bowel motivation. Continue on current regimen Oral Dulcolax, Colace, senna plus, MiraLAX, milk of magnesia. Did also add Dulcolax suppository and encouraged nursing to try a brown cow. Recommend using suppository. By this evening if no bowel movements. This will also help with fluid retention and edema. Otherwise doing well. 2/3 His wt is up 6kg since yesterday which is likely an error. Clinically this does not appear to be the case. He is difficult to weigh. Will reweigh in the am. Will cancel the extra dose of Lasix as ordered this evening given his drop in sodium. His urine is dark, breathing is ok and swelling is less. Likely doesn't need further diuresis. Sodium down to 126 from 132 yesterday. Will continue to follow. Case discussed with Dr. Thomas. 03/27 Sodium is again down to 124. Nursing staff does report patient drinks "numerous pitchers of water a day". This is likely attributing to hyponatremia. Weight yesterday at baseline admission weight. Continue to watch daily weights Will decrease second Lasix dose to 40mg at 1400 and continue with 60 mg in the am 03/28 Recurrent syncope -- check EKG, trop x3, CT head, CXR Acute encephalopathy -- poss r/t hyponatremia; Na down to 123 today ? intervascularly dry Hold Lasix this afternoon. Hold metolazone. Give NS 500 mL IVF today. Cont wound care -- asks about dsg options other than Mepilex EKG personally reviewed: A-fib with controlled rate; No ST elevation/depression ; RBBB; +Q wave lat leads CXR personally reviewed: no pulmonary congestion/infiltrate Trop #1 = 0.[address] pending. I spoke with Dr. Ang from [place]. During his 90+ day SNF stay he showed only minimal improvement in functional status. He tends to run about 128-130 on sodium level, with elevated bicarb as well. He has had several syncopal episodes during his SNF stay. Diuretics at time of dc were: Spironolactone 25 mg BID, metolazone 5 mg daily, and Lasix [address] Ang noted anasarca while at [facility]. LTC placement was recommended but pt/ declined. 03/29 Encephalopathy is better today. Na still low but increased to 125 after fluid bolus yesterday/holding diuretics. He had Lasix this morning but will hold the rest of his diuretics today. Recheck BMP/mg in am to re-eval electrolytes/renal function and possibly resume diuretics. I did reach Dr. Ang yesterday, who reported that Devendra was on Spironolactone 25 mg BID, metolazone 5 mg daily, and Lasix 80 mg BID while at [facility] in [place]. Oxycodone and gabapentin doses reduced today per Dr. Pittman. Movantik started for opioid induced constipation IRU team meeting planned this afternoon to discuss discharge plans. 03/30 Multifactorial encephalopathy -- Very drowsy with delayed processing and/or verbal responses. Gabapentin dose further adjusted per Dr. Pittman. Could be r/t hyponatremia; difficult to assess intravascular fluid status. Weight is down from 135 kg yesterday to 129.5 this am, and diuretics have been on hold for 2 days. ABG ordered, but pt was not hypercarbic or acidotic. Another consideration is depression, and we may want to consider psych consultation. Case was discussed with Dr. Mcintosh. Spironolactone can cause hyponatremia and he recommends decreasing dose to 25 mg. He also recommends restarting Lasix but continue to hold metolazone, start tele d/t syncope and hx a-fib, tighten fluid restriction from 1500 to 0777-6450 ml/day, check orthostatics if able, and obtain an echo. He will see Devendra either tonight or tomorrow am. In addition, records have been requested from Dr. eCsar's office at [facility] in [place]. He has been afebrile; UC pending. Sigala in place. Pt may have plateaued from a functional perspective and CM is looking into other placement options. Plan - 03/31/17. Mr. Miller multifactorial encephalopathy appears improved today as compared to yesterday. Family expressed concern about increased somnolence this morning after the patient received his gabapentin. Dr. Pittman was contacted and his gabapentin dose was decreased to 100mg TID. Will continue to monitor. Patient was seen by Dr. Mcintosh this morning for further evaluation of his diastolic CHF. He discussed his recommendations with Dr. Moran and stated that he felt the patient was hypovolemic. Will start NS 75cc/hr for hydration. Monitor fluid status closely in addition to urinary output for signs of fluid overload. Given his hyponatremia, will stop his spironolactone, Lasix and KCl and continue to hold his metolazone. Fluid restriction was discontinued. Will continue metoprolol 25mg BID as well as coumadin per Dr. Mcintosh. Will recheck has labs in the AM to monitor blood counts, electrolytes and renal function. Slight increase in leukocytosis at 14.5 with 7% bands. Patient remains afebrile. Prior UA obtained revealed + nitrite with 30-50 WBC and 1+ bacteria. Culture revealed mixed daryl. Will recheck CXR and UA in AM and continue to monitor closely for signs of deterioration or infection. Concern that the patient may have plateaued from a functional perspective. Case management continues to work on discharge planning. Anticipate discharge early next week, hopefully on 04/03/17 to [facility] in [place], per family. Plan - 04/01/17. Clinically, Devendra appears improved today with improved mentation after reduction in gabapentin per Dr. Pittman yesterday. He does admit to increased pain to his lower extremities with the reduction in the gabapentin but appreciates the improved mentation. Continue to encourage participation in therapies and pain control per Dr. Pittman. Significant concern and anxiety regarding pain during transfer to [place]. Patient requested to receive Gabapentin 200mg x 1 dose immediately prior to discharge as he received great pain control with the dose and would appreciate the increased somnolence during the ambulance ride. He also requested to be able to receive another dose of gabapentin or pain medication immediately prior to arrival in [place] to maintain his pain medication schedule knowing that he will not be able to receive medications immediately on his arrival to [facility]. Will discuss patient wishes with Dr. Pittman. Patient was seen by Dr. Mcintosh on 03/31/17 and felt the patient was hypovolemic. NS 75cc was stated with improvement in hyponatremia (Na 128). Continue NS 75cc/hr and monitor closely for signs of fluid overload. At the recommendation of Dr. Mcintosh, his spironolactone, Lasix and KCl were discontinued and his metolazone remains on hold given his hypovolemia. Fluid restriction was also lifted. Consider restarting diuretics, possibly at lower dose at time of admission. Will continue metoprolol 25mg BID as well as coumadin per Dr. Mcintosh. Will recheck CBC and BMP in AM to continue to monitor blood counts, electrolytes and renal function. Case management continues to work on discharge planning. Anticipate discharge early next week, hopefully on 04/03/17 to [facility] in [place], per family. 04/02/17 Sodium improved to 131. Continue IVF and continue to hold diuretics, appreciate Dr. Mcintosh's expertise. Plans for transfer to [facility] on 04/03 fell through. CM looking at other options. UC from 04/01 shows early growth -- cath specimen. Records received from [facility] in [place] (stone grader: Dr. Cesar): EF >55 %; longstanding hx of a-fib 04/04/17 Start doxycycline 100 mg twice a day for infected sebaceous cyst. reports he has many allergies. Doxycycline is not listed. Use a warm moist compress to the area throughout the day. Will recheck the area tomorrow. Monitor for fever or worsening symptoms. Doesn' t appear appropriate for I&D at this time.
--- NOTE | 2017-04-04 17:41 | Cardiology Progress Note ---
Subjective Interval history: Patient states he is comfortable this afternoon. is at bedside. Patient is currently on room air but needs to use CPAP intermittently as before. Patient denies angina or pressure, dyspnea, palpitations or dizziness. Patient was able to take a step at the gym today for PT. He stood up for about 45 seconds. Sodium is 132 today. Patient is more alert and interactive today. Exam Vital signs: Temperature 97.9 F 04/04/17 14:58 Pulse Rate 71 04/04/17 14:58 Respiratory Rate 18 04/04/17 16:32 Blood Pressure 108/65 04/04/17 14:58 Pulse Oximetry 98 04/04/17 14:58 - Constitutional no acute distress, well developed, morbidly obese, cooperative - Routine HEENT Exam Head: Present: normocephalic, atraumatic Eye: Present: EOMI, PERRL ENT: Present: mucous membranes moist - Routine Neck Exam Present: supple, normal carotid upstroke. Absent: JVD, carotid bruit - Routine Respiratory Exam Present: CTA bilaterally. Absent: respiratory distress - Routine Cardiovascular Exam Present: irregularly irregular. Absent: murmur - Routine Abdominal Exam Present: soft, normoactive bowel sounds, non tender. Absent: tenderness, guarding, organomegaly, mass - Routine Extremities Exam Present: no edema. Absent: cyanosis, clubbing - Routine Skin Exam Present: erythema, lesions (squamous cell) - Routine Neurological Exam Present: alert, oriented X3, CN II-XII intact, moving all extremities, normal speech. Absent: facial asymmetry - Routine Psychiatric Exam Present: normal affect - Urinary Catheter Management Urethral Cath placed during this visit: no Results 04/05/17 05:15 04/04/17 04:34 Comprehensive Metabolic Panel 04/04/17 Range/Units 04:34 Sodium 132 L (134-144) MEQ/L Potassium 3.9 (3.6-5) MEQ/L Chloride 97 L (98-107) MEQ/L Carbon Dioxide 26 (22-30) MEQ/L BUN 16.0 (9-20) MG/DL Creatinine 1.0 (0.8-1.5) MG/DL Glucose 140 H (75-110) MG/DL Calcium 8.3 L (8.4-10.2) MG/DL Intake and Output 04/04/17 04/04/17 04/04/17 06:59 14:59 22:59 Output Total 350 / 350 Balance -350 / -350 Output: Urine Amount (Catheter) 350 / 350 Other: Urine Appearance Clear Urine Color Light Sharmaine Stool Color Brown Stool Consistency Soft Size of Bowel Movement Large # Bowel Movements 1 Assessment and Plan - Assessment and Plan DCHF appears to be hypovolemic, and is hyponatremic improving with IV NS permanent(chronic) a fib positional syncope and presyncope (orthostatic) no recurrence RBBB SONYA CKD recent influenza pneumonia and resp failure myopathy multiple chronic comorbidites Skin ulcers and wounds Rheumatoid arthritis on chronic steroids Anemia continue gentle IV 0.9 NS which seems to be helping hyponatremia and hypovolemia. Consider nutritional support to bring his albumin up may help with the positive oncotic pressure and reduce third spacing I agree with beta blockers and warfarin at this time. Overall and long-term prognosis unfortunately appears poor, due to general debility, very poor functional capacity and multiple chronic and post acute medical problems feel free to call me back if i could be of further assistance We'll follow the patient intermittently 04/06/17 17:59 Hospital Course Summary Disclaimer: The visit summary below is not to be considered part of the above Progress Note. Hospital Course: Plan Agree with admission to inpatient rehabilitation unit under the care of Dr. Pittman for significant myopathy and weakness secondary to recent acute hospitalization and illness. Patient does have a very complex past medical history and current chronic comorbidities. Appreciate hospitalist consultation for assistance in medical management. Consultation placed with the wound care team for evaluation and recommendations of ongoing wound care. Left leg squamous cell carcinoma-stable. Patient scheduled to follow with radiation oncology once medically improved. does report that she would like to use her homemade "save" which contains eggplant an essential oil. Consult to pharmacy for ongoing management of INR and Coumadin dosing. Patient has known positive urine culture for VRE. Will forego any treatment. Given chronic colonization of indwelling Sigala catheter Patient does wish to be a full code and this orders written. Appreciate medical consultation, the hospitalist services will continue to follow patient medically manage his existing comorbidities during his stay on IRU unit. At time of discharge his medical care will return to his primary care provider in Dr. Doug Ang in [place] 03/18/17 Give additional Lasix 40 mg PO now; start daily weights. Sounds like he has a hx of flash pulmonary edema; reports he was previously on Lasix TID then was decreased to BID -- monitor fluid status closely as we may need to provide extra diuresis periodically versus adding another dose in the afternoon. Will recheck BMP in am. Change dosing of gabapentin to 300 mg TID and 300 mg at 0200, per 's request. Increase simethicone to home dosing schedule. Resume levothyroxine 50 mcg -- he took this in [place]. Consider wound consultation. Suspect mild leukocytosis is chronic given prednisone use though will recheck CBC in am to document stability. INR is therapeutic. 03/20/17 Na decreased to 125 but exam suggests fluid positive state. Will increase Lasix to 60 mg BID, starting this afternoon. Will resume spironolactone. Wait on resuming KDur since K was still elevated at 4.8 but we may need to resume K soon. Renal status stable Rn to call wound team regarding excoriation under left breast. INR is therapeutic; high risk medication in use. Encourage PT/OT/activity as siva. Discussed with Dr. Pittman and with Dr. Ruvalcaba. 2/2 Given increased edema and increase in weight. We will give an additional 40 milligrams of Lasix both this evening and tomorrow evening. Recheck BMP tomorrow morning to follow electrolytes and renal function. Patient may need additional testing supplementation. Discussed importance of bowel motivation. Continue on current regimen Oral Dulcolax, Colace, senna plus, MiraLAX, milk of magnesia. Did also add Dulcolax suppository and encouraged nursing to try a brown cow. Recommend using suppository. By this evening if no bowel movements. This will also help with fluid retention and edema. Otherwise doing well. 2/3 His wt is up 6kg since yesterday which is likely an error. Clinically this does not appear to be the case. He is difficult to weigh. Will reweigh in the am. Will cancel the extra dose of Lasix as ordered this evening given his drop in sodium. His urine is dark, breathing is ok and swelling is less. Likely doesn't need further diuresis. Sodium down to 126 from 132 yesterday. Will continue to follow. Case discussed with Dr. Thomas. 03/27 Sodium is again down to 124. Nursing staff does report patient drinks "numerous pitchers of water a day". This is likely attributing to hyponatremia. Weight yesterday at baseline admission weight. Continue to watch daily weights Will decrease second Lasix dose to 40mg at 1400 and continue with 60 mg in the am 2 Recurrent syncope -- check EKG, trop x3, CT head, CXR Acute encephalopathy -- poss r/t hyponatremia; Na down to 123 today ? intervascularly dry Hold Lasix this afternoon. Hold metolazone. Give NS 500 mL IVF today. Cont wound care -- asks about dsg options other than Mepilex EKG personally reviewed: A-fib with controlled rate; No ST elevation/depression ; RBBB; +Q wave lat leads CXR personally reviewed: no pulmonary congestion/infiltrate Trop #1 = 0.[address] pending. I spoke with Dr. Ang from [place]. During his 90+ day SNF stay he showed only minimal improvement in functional status. He tends to run about 128-130 on sodium level, with elevated bicarb as well. He has had several syncopal episodes during his SNF stay. Diuretics at time of dc were: Spironolactone 25 mg BID, metolazone 5 mg daily, and Lasix [address] Ang noted anasarca while at [facility]. LTC placement was recommended but pt/ declined. 03/29 Encephalopathy is better today. Na still low but increased to 125 after fluid bolus yesterday/holding diuretics. He had Lasix this morning but will hold the rest of his diuretics today. Recheck BMP/mg in am to re-eval electrolytes/renal function and possibly resume diuretics. I did reach Dr. Ang yesterday, who reported that Devendra was on Spironolactone 25 mg BID, metolazone 5 mg daily, and Lasix 80 mg BID while at [facility] in [place]. Oxycodone and gabapentin doses reduced today per Dr. Pittman. Movantik started for opioid induced constipation IRU team meeting planned this afternoon to discuss discharge plans. 03/30 Multifactorial encephalopathy -- Very drowsy with delayed processing and/or verbal responses. Gabapentin dose further adjusted per Dr. Pittman. Could be r/t hyponatremia; difficult to assess intravascular fluid status. Weight is down from 135 kg yesterday to 129.5 this am, and diuretics have been on hold for 2 days. ABG ordered, but pt was not hypercarbic or acidotic. Another consideration is depression, and we may want to consider psych consultation. Case was discussed with Dr. Mcintosh. Spironolactone can cause hyponatremia and he recommends decreasing dose to 25 mg. He also recommends restarting Lasix but continue to hold metolazone, start tele d/t syncope and hx a-fib, tighten fluid restriction from 1500 to 3360-7012 ml/day, check orthostatics if able, and obtain an echo. He will see Devendra either tonight or tomorrow am. In addition, records have been requested from Dr. Cesar's office at [facility] in [place]. He has been afebrile; UC pending. Sigala in place. Pt may have plateaued from a functional perspective and CM is looking into other placement options. Plan - 03/31/17. Mr. Miller multifactorial encephalopathy appears improved today as compared to yesterday. Family expressed concern about increased somnolence this morning after the patient received his gabapentin. Dr. Pittman was contacted and his gabapentin dose was decreased to 100mg TID. Will continue to monitor. Patient was seen by Dr. Mcintosh this morning for further evaluation of his diastolic CHF. He discussed his recommendations with Dr. Moran and stated that he felt the patient was hypovolemic. Will start NS 75cc/hr for hydration. Monitor fluid status closely in addition to urinary output for signs of fluid overload. Given his hyponatremia, will stop his spironolactone, Lasix and KCl and continue to hold his metolazone. Fluid restriction was discontinued. Will continue metoprolol 25mg BID as well as coumadin per Dr. Mcintosh. Will recheck has labs in the AM to monitor blood counts, electrolytes and renal function. Slight increase in leukocytosis at 14.5 with 7% bands. Patient remains afebrile. Prior UA obtained revealed + nitrite with 30-50 WBC and 1+ bacteria. Culture revealed mixed daryl. Will recheck CXR and UA in AM and continue to monitor closely for signs of deterioration or infection. Concern that the patient may have plateaued from a functional perspective. Case management continues to work on discharge planning. Anticipate discharge early next week, hopefully on 04/03/17 to [facility], per family. Plan - 04/01/17. Clinically, Devendra appears improved today with improved mentation after reduction in gabapentin per Dr. Pittman yesterday. He does admit to increased pain to his lower extremities with the reduction in the gabapentin but appreciates the improved mentation. Continue to encourage participation in therapies and pain control per Dr. Pittman. Significant concern and anxiety regarding pain during transfer to [place]. Patient requested to receive Gabapentin 200mg x 1 dose immediately prior to discharge as he received great pain control with the dose and would appreciate the increased somnolence during the ambulance ride. He also requested to be able to receive another dose of gabapentin or pain medication immediately prior to arrival in [place] to maintain his pain medication schedule knowing that he will not be able to receive medications immediately on his arrival to [facility]. Will discuss patient wishes with Dr. Pittman. Patient was seen by Dr. Mcintosh on 03/31/17 and felt the patient was hypovolemic. NS 75cc was stated with improvement in hyponatremia (Na 128). Continue NS 75cc/hr and monitor closely for signs of fluid overload. At the recommendation of Dr. Mcintosh, his spironolactone, Lasix and KCl were discontinued and his metolazone remains on hold given his hypovolemia. Fluid restriction was also lifted. Consider restarting diuretics, possibly at lower dose at time of admission. Will continue metoprolol 25mg BID as well as coumadin per Dr. Mcintosh. Will recheck CBC and BMP in AM to continue to monitor blood counts, electrolytes and renal function. Case management continues to work on discharge planning. Anticipate discharge early next week, hopefully on 04/03/17 to [facility] in [place], per family. 04/02/17 Sodium improved to 131. Continue IVF and continue to hold diuretics, appreciate Dr. Mcintosh's expertise. Plans for transfer to [facility] on 04/03 fell through. CM looking at other options. UC from 04/01 shows early growth -- cath specimen. Records received from [facility] in [place] (associate professor of art: Dr. Cesar): EF >55 %; longstanding hx of a-fib 04/04/17 Start doxycycline 100 mg twice a day for infected sebaceous cyst. reports he has many allergies. Doxycycline is not listed. Use a warm moist compress to the area throughout the day. Will recheck the area tomorrow. Monitor for fever or worsening symptoms. Doesn' t appear appropriate for I&D at this time.
[2017-04-04] MEDS: DOXYCYCLINE 100 MG in NS 250ml 250 ML IV SCH (18:15)
[2017-04-05] MEDS: ALBUTEROL 2.5mg/3ml (0.083%) NEB AEROSOL PRN ×2 (00:32→12:02)
[2017-04-05] MEDS: ACETAMINOPHEN 325 MG TABLET PO PRN ×3 (01:03→18:09)
[2017-04-05] MEDS: HYDROCODONE/CHLORPHENIRAMINE ER ORAL LIQ 5ml PO PRN ×2 (03:29→15:03)
[2017-04-05] MEDS: ALBUTEROL 2.5mg/0.5ml (0.5%) NEB AEROSOL SCH ×4 (04:56→19:44)
[2017-04-05] MEDS: NALOXEGOL 12.5 MG TABLET PO SCH ×2 (05:16→08:26)
[2017-04-05] MEDS: PANTOPRAZOLE 40 MG TABLET PO SCH ×2 (05:16→08:27)
[2017-04-05] MEDS: LEVOTHYROXINE 50 MCG TABLET PO SCH ×2 (05:17→08:26)
[2017-04-05] MEDS: Oxycodone *IR* 5 MG TABLET PO PRN ×5 (05:17→22:57)
[2017-04-05] MEDS: GUAIFENESIN 400MG TABLET PO SCH ×4 (08:23→21:21)
[2017-04-05] MEDS: NYSTATIN 500,000 units/5 ml ORAL LIQUID PO SCH ×4 (08:23→21:22)
[2017-04-05] MEDS: ASCORBIC ACID 500 MG TABLET PO SCH (08:24)
[2017-04-05] MEDS: SENNA + DOCUSATE TABLET PO SCH ×2 (08:24→21:19)
[2017-04-05] MEDS: GABAPENTIN 100 MG CAPSULE PO SCH ×3 (08:24→21:20)
[2017-04-05] MEDS: PredniSONE 20 MG TABLET PO SCH (08:24)
[2017-04-05] MEDS: LACTOBACILLUS (15B cfu) CAPSULE PO SCH (08:24)
[2017-04-05] MEDS: DOXYCYCLINE 100 MG in NS 250ml 250 ML IV SCH ×2 (08:25→21:13)
[2017-04-05] MEDS: ESCITALOPRAM 20 MG TABLET PO SCH (08:25)
[2017-04-05] MEDS: FERROUS SULFATE 324 MG TABLET PO SCH (08:25)
[2017-04-05] MEDS: COENZYME Q-10 200mg TABLET PO SCH (08:25)
[2017-04-05] MEDS: SIMETHICONE 80 MG CHEWABLE TABLET PO SCH ×4 (08:31→21:20)
--- NOTE | 2017-04-05 10:50 | IRU Progress Note ---
- Subjective/Serverity of Illness Date: 04/05/17 Mr. Hutchinson was interviewed and examined in his room on inpatient rehabilitation. His was present. He had a very difficult night he states. He could not sleep due to incessant cough. Still producing the same amount of sputum. There is been no change in this. He has not been running a fever at this time. Patient does also report continued problems with generalized pain. Pain is in the legs as well as "all over." It is reported to be an 8 out of 10 in intensity. Mrs. Hutchinson has several concerns. She is concerned that he is retaining fluid. He has had his diuretics held for a few days due to the hyponatremia which actually is better. Most recent weight I can find is 131 kg which is up about a kilogram. We will see if we can reweigh him in this regard. She is concerned about his temperature. Normally it is 97 and out is 98.5 which she feels though is elevated for him. He has now on doxycycline intravenously for an infected sebaceous cyst. This is managed by the hospitalist. He did not get any sleep last night. He actually does not want to participate in therapy today. Brief therapy update: For physical therapy his participation is quite variable. For occupational therapy he has plateaued and is not making progress. Medically we have reviewed his situation. His lungs actually sound fairly clear with only a question of a crackle in the left base. No wheezes are noted at present. I do not see much in the way of edema although he may have some thigh edema. Exam Vital Signs: Temperature 97.9 F 04/05/17 08:00 Pulse Rate 75 04/05/17 08:00 Respiratory Rate 26 H 04/05/17 09:59 Blood Pressure 117/57 04/05/17 08:00 Pulse Oximetry 99 04/05/17 09:59 Height/Weight/BMI: Height 1.7 m Weight 131 kg Body Mass Index 45.0 - Constitutional Present: moderate distress (he is upset that he did not sleep well last night.) , well nourished, well developed, morbidly obese - Routine HEENT Exam Head: Present: normocephalic Eye: Present: EOMI, PERRL ENT: Present: mucous membranes moist, oropharynx clear - Routine Neck Exam Present: supple - Routine Respiratory Exam Present: CTA bilaterally, crackles (questionable crackles left base. However these tended to clear after several deep breaths.). Absent: wheezes - Routine Cardiovascular Exam Present: S1, S2, S3, S4, irregularly irregular - Routine Abdominal Exam Present: soft, normoactive bowel sounds, non distended. Absent: tenderness - Routine Extremities Exam Present: no edema (no edema noted in the feet. May have some in the thighs.). Absent: cyanosis, clubbing - Routine Back/Spine/Pelvis Exam Back/Spine: Absent: full ROM - Routine Skin Exam Present: dry, warm, lesions, wounds (multiple skin lesions and wounds as previously noted. His back is red.) - Routine Neurological Exam Present: alert, oriented X3, CN II-XII intact, normal speech. Absent: facial asymmetry - Routine Psychiatric Exam Present: depressed, anxious. Absent: cooperative IRU A/P (1) Myopathy Current visit: Yes Status: Acute Continues to demonstrate significant myopathic weakness. He is variably participatory with physical therapy and has not made progress with occupational therapy. Safe discharge plan is in progress. (2) Influenza A Current visit: Yes Status: Resolved (3) Rheumatoid arthritis Qualifiers: Rheumatoid arthritis location: multiple sites Rheumatoid factor presence: unspecified presence Qualified Code(s): M06.9 - Rheumatoid arthritis, unspecified Current visit: Yes Status: Chronic He has chronic pain syndrome. When we increase his gabapentin or other pain medications he becomes more somnolent and is not cooperative with therapy nor before meals adequately alert. For this reason I think the best treatment of his chronic pain would be to continue the current doses of medications and to increase his activity to improve range of motion. (4) Atrial fibrillation, chronic Current visit: Yes Status: Chronic INR of 2.20 is therapeutic as of yesterday. (5) (HFpEF) heart failure with preserved ejection fraction Current visit: Yes Status: Chronic It is not clear to me if he has fluid excess or not. I will discuss with the hospitalist service in this regard. (6) CKD (chronic kidney disease) stage 3, GFR 30-59 ml/min Current visit: Yes Status: Chronic (7) Squamous cell skin cancer Current visit: Yes Status: Chronic (8) Chronic indwelling Sigala catheter Current visit: Yes Status: Chronic (9) Acute on chronic respiratory failure with hypoxemia Current visit: Yes Status: Acute (10) Acute bronchospasm Current visit: Yes Status: Resolved (11) SONYA (obstructive sleep apnea) Current visit: Yes Status: Chronic (12) Slow transit constipation Current visit: Yes Status: Acute (13) Hyponatremia Current visit: Yes Status: Chronic (14) Neuropathic pain of both legs Current visit: Yes Status: Chronic (15) Syncope Qualifiers: Syncope type: unspecified Qualified Code(s): R55 - Syncope and collapse Current visit: Yes Status: Resolved DVT Prophylaxis: Coumadin Resuscitation Status: Do Not Resuscitate - Course Hospital Course: Pedro Pittman MD: 03/16/17 12:11 Multiple medical problems as outlined. Severe weakness noted. Just getting started with therapies. 03/19/17 12:04 Patient is cooperative and participates with therapy although progress is quite slow. Continues to have expiratory wheezes. He is afebrile. Numerous skin lesions identified. would like to have lidocaine used for dressing removal. I will discuss with wound care. 03/20/17 10:44 Multiple skin lesions will require continued meticulous nursing management. Medically he seems stable. Lungs are clear. INR is therapeutic. He is participating with therapy. 03/22/17 11:35 Slow progression with therapy. Multiple skin lesions noted and being monitored by nursing including wound care nurse. INR subtherapeutic. 03/23/17 11:46 Slow progress with therapy. INR therapeutic. Complains of constipation. 03/26/17 14:53 Progress continues to be slow. Sodium down to 126. Weight was up to 133 and now down to 130 kg. Easy fatigability and continued evidence of critical illness/disuse myopathy. 03/27/17 10:30 Sodium down to 124. He is overdrinking fluids and he was advised not to do that. Now on a fluid restriction. Complains of pain in the right leg heel pad area but also throughout the leg. We will modify the gabapentin dose. 03/29/17 10:09 Patient remains very complex. Diuretics held. Sodium still low 125. Syncope yesterday. Somewhat slow to respond. We will reduce gabapentin. 03/30/17 11:22 Patient is more alert today. Exam is otherwise negative for changes. Weight is up. Sodium 125. Continues to be plateaued with therapy. 04/02/17 10:58 Patient continues to plateau with therapy. He does seem to be more awake and alert with less gabapentin. Sodium improved to 131 which may also help his mentation. Plans are to transfer to [facility] in [place] tomorrow. 04/03/17 11:19 Continues to have very poor exercise tolerance. Likely he is depressed. Continues to work with therapy. Placement in progress. 04/05/17 10:52 He is non-participatory with physical therapy for the most part. He is now making progress with occupational therapy. Had a difficult night with cough. He is on doxycycline for an infected sebaceous cyst. Placement in progress. - Interventions to Obtain Goals PT Treatment Plan: Balance/Proprioception, Functional Activities, Gait Training , Patient/Family Education, Therapeutic Exercise OT Treatment Plan: ADL (Basic Care), Balance Training, Pt./Family Education, Ther. Exercise for ADL Goals Progress/Modifications: I discussed the case with the patient's in detail. It is not clear to me if he is fluid excess or not. Lungs sound reasonably clear. Thighs may have some edema although not much in the way of pedal edema or ankle edema. We will try to reassess his weight and get an idea from that if he is fluid excess or not. I will discuss with the hospitalist service in this regard. With regard to therapy, he is not making progress. In addition, he refuses to participate today because he did not sleep well last night.
[2017-04-05] MEDS ORDERED: FALL RISK - PHARMACY CONSULT XX ONE (11:01)
[2017-04-05] MEDS: WARFARIN 2.5 MG TABLET PO SCH (13:29)
--- NOTE | 2017-04-05 13:29 | Progress Note ---
- Date 04/05/17 Subjective: Patient is seen today to follow up his infected sebaceous cyst. He hasn't noted any change. He started doxy yesterday. He didn't sleep well last night. He was on CPAP when I saw him this am. His is concerned that he is retaining too much fluid. His diuretics have been on hold given his hyponatremia. Objective Vital signs: Temperature 97.9 F 04/05/17 08:00 Pulse Rate 77 04/05/17 09:22 Respiratory Rate 27 H 04/05/17 12:02 Blood Pressure 117/57 04/05/17 08:00 Pulse Oximetry 99 04/05/17 12:02 Height/Weight/BMI: Height 1.7 m Weight 131 kg Body Mass Index 45.0 - Constitutional Present: no acute distress, well nourished, well developed, obese - Routine HEENT Exam Head: Present: normocephalic - Routine Respiratory Exam Present: CTA bilaterally. Absent: wheezes - Routine Cardiovascular Exam Present: irregularly irregular - Routine Abdominal Exam Present: soft - Routine Extremities Exam Present: no edema (no edema to the feet and ankles), normal capillary refill - Routine Skin Exam Present: dry, warm Comments: area of redness and swelling under the L neck is about the same. Tender with palpation, but no more than yesterday. - Routine Neurological Exam Present: alert - Routine Lymphatic Exam Lymphatic: Absent: adenopathy - Routine Psychiatric Exam Present: normal affect, cooperative Results - Labs CBC & Chem 7: 04/05/17 05:15 04/04/17 04:34 Microbiology Results: Microbiology 04/01/17 19:43 Urine, Cath Sigala Urine Culture - Final Mixed Bacterial Daryl 03/30/17 02:46 Urine, Cath Sigala, Chronic Urine Culture - Final Mixed Bacterial Daryl Present -No further testing will be performed Assessment and Plan (1) Myopathy Current visit: Yes Status: Acute (2) Squamous cell skin cancer Current visit: Yes Status: Chronic (3) Acute on chronic respiratory failure with hypoxemia Current visit: Yes Status: Acute Assessment and Plan: Impression Infected sebaceous cyst proximal to left side of neck Syncope, recurrent and chronic: workup negative Acute encephalopathy - improved Generalized Myopathy Skin lesions consistent with basal cell and squamous cell carcinoma Recent influenza A with continued hypoxia. Hyponatremia, chronic, baseline 128-130 Intertriginous dermatitis Chronic atrial fibrillation Congestive heart failure. 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 Hypothyroidism - resumed levothyroxine on 03/18/17 history of asthma history of seizures Plan Continue doxycycline 100 mg twice a day for infected sebaceous cyst. Repeat BMP tomorrow to follow hyponatremia Resume metolazone. Will give today and tomorrow and then give every other day. Monitor electrolytes closely. - Physician Narrative Narrative: Date: 04/05/17 Time: 1325 Hospital Course Summary Disclaimer: The visit summary below is not to be considered part of the above Progress Note. Hospital Course: Plan Agree with admission to inpatient rehabilitation unit under the care of Dr. Pittman for significant myopathy and weakness secondary to recent acute hospitalization and illness. Patient does have a very complex past medical history and current chronic comorbidities. Appreciate hospitalist consultation for assistance in medical management. Consultation placed with the wound care team for evaluation and recommendations of ongoing wound care. Left leg squamous cell carcinoma-stable. Patient scheduled to follow with radiation oncology once medically improved. does report that she would like to use her homemade "save" which contains eggplant an essential oil. Consult to pharmacy for ongoing management of INR and Coumadin dosing. Patient has known positive urine culture for VRE. Will forego any treatment. Given chronic colonization of indwelling Sigala catheter Patient does wish to be a full code and this orders written. Appreciate medical consultation, the hospitalist services will continue to follow patient medically manage his existing comorbidities during his stay on IRU unit. At time of discharge his medical care will return to his primary care provider in Dr. Doug Ang in [place] 03/18/17 Give additional Lasix 40 mg PO now; start daily weights. Sounds like he has a hx of flash pulmonary edema; reports he was previously on Lasix TID then was decreased to BID -- monitor fluid status closely as we may need to provide extra diuresis periodically versus adding another dose in the afternoon. Will recheck BMP in am. Change dosing of gabapentin to 300 mg TID and 300 mg at 0200, per 's request. Increase simethicone to home dosing schedule. Resume levothyroxine 50 mcg -- he took this in [place]. Consider wound consultation. Suspect mild leukocytosis is chronic given prednisone use though will recheck CBC in am to document stability. INR is therapeutic. 03/20/17 Na decreased to 125 but exam suggests fluid positive state. Will increase Lasix to 60 mg BID, starting this afternoon. Will resume spironolactone. Wait on resuming KDur since K was still elevated at 4.8 but we may need to resume K soon. Renal status stable Rn to call wound team regarding excoriation under left breast. INR is therapeutic; high risk medication in use. Encourage PT/OT/activity as siva. Discussed with Dr. Pittman and with Dr. Ruvalcaba. 2/2 Given increased edema and increase in weight. We will give an additional 40 milligrams of Lasix both this evening and tomorrow evening. Recheck BMP tomorrow morning to follow electrolytes and renal function. Patient may need additional testing supplementation. Discussed importance of bowel motivation. Continue on current regimen Oral Dulcolax, Colace, senna plus, MiraLAX, milk of magnesia. Did also add Dulcolax suppository and encouraged nursing to try a brown cow. Recommend using suppository. By this evening if no bowel movements. This will also help with fluid retention and edema. Otherwise doing well. 2/3 His wt is up 6kg since yesterday which is likely an error. Clinically this does not appear to be the case. He is difficult to weigh. Will reweigh in the am. Will cancel the extra dose of Lasix as ordered this evening given his drop in sodium. His urine is dark, breathing is ok and swelling is less. Likely doesn't need further diuresis. Sodium down to 126 from 132 yesterday. Will continue to follow. Case discussed with Dr. Thomas. 03/27 Sodium is again down to 124. Nursing staff does report patient drinks "numerous pitchers of water a day". This is likely attributing to hyponatremia. Weight yesterday at baseline admission weight. Continue to watch daily weights Will decrease second Lasix dose to 40mg at 1400 and continue with 60 mg in the am 03/28 Recurrent syncope -- check EKG, trop x3, CT head, CXR Acute encephalopathy -- poss r/t hyponatremia; Na down to 123 today ? intervascularly dry Hold Lasix this afternoon. Hold metolazone. Give NS 500 mL IVF today. Cont wound care -- asks about dsg options other than Mepilex EKG personally reviewed: A-fib with controlled rate; No ST elevation/depression ; RBBB; +Q wave lat leads CXR personally reviewed: no pulmonary congestion/infiltrate Trop #1 = 0.[address] pending. I spoke with Dr. Ang from [place]. During his 90+ day SNF stay he showed only minimal improvement in functional status. He tends to run about 128-130 on sodium level, with elevated bicarb as well. He has had several syncopal episodes during his SNF stay. Diuretics at time of dc were: Spironolactone 25 mg BID, metolazone 5 mg daily, and Lasix [address] Ang noted anasarca while at [facility]. LTC placement was recommended but pt/ declined. 03/29 Encephalopathy is better today. Na still low but increased to 125 after fluid bolus yesterday/holding diuretics. He had Lasix this morning but will hold the rest of his diuretics today. Recheck BMP/mg in am to re-eval electrolytes/renal function and possibly resume diuretics. I did reach Dr. Ang yesterday, who reported that Devendra was on Spironolactone 25 mg BID, metolazone 5 mg daily, and Lasix 80 mg BID while at [facility] in [place]. Oxycodone and gabapentin doses reduced today per Dr. Pittman. Movantik started for opioid induced constipation IRU team meeting planned this afternoon to discuss discharge plans. 03/30 Multifactorial encephalopathy -- Very drowsy with delayed processing and/or verbal responses. Gabapentin dose further adjusted per Dr. Pittman. Could be r/t hyponatremia; difficult to assess intravascular fluid status. Weight is down from 135 kg yesterday to 129.5 this am, and diuretics have been on hold for 2 days. ABG ordered, but pt was not hypercarbic or acidotic. Another consideration is depression, and we may want to consider psych consultation. Case was discussed with Dr. Mcintosh. Spironolactone can cause hyponatremia and he recommends decreasing dose to 25 mg. He also recommends restarting Lasix but continue to hold metolazone, start tele d/t syncope and hx a-fib, tighten fluid restriction from 1500 to 2382-1057 ml/day, check orthostatics if able, and obtain an echo. He will see Devendra either tonight or tomorrow am. In addition, records have been requested from Dr. Cesar's office at [facility] in [place]. He has been afebrile; UC pending. Sigala in place. Pt may have plateaued from a functional perspective and CM is looking into other placement options. Plan - 03/31/17. Mr. Miller multifactorial encephalopathy appears improved today as compared to yesterday. Family expressed concern about increased somnolence this morning after the patient received his gabapentin. Dr. Pittman was contacted and his gabapentin dose was decreased to 100mg TID. Will continue to monitor. Patient was seen by Dr. Mcintosh this morning for further evaluation of his diastolic CHF. He discussed his recommendations with Dr. Moran and stated that he felt the patient was hypovolemic. Will start NS 75cc/hr for hydration. Monitor fluid status closely in addition to urinary output for signs of fluid overload. Given his hyponatremia, will stop his spironolactone, Lasix and KCl and continue to hold his metolazone. Fluid restriction was discontinued. Will continue metoprolol 25mg BID as well as coumadin per Dr. Mcintosh. Will recheck has labs in the AM to monitor blood counts, electrolytes and renal function. Slight increase in leukocytosis at 14.5 with 7% bands. Patient remains afebrile. Prior UA obtained revealed + nitrite with 30-50 WBC and 1+ bacteria. Culture revealed mixed daryl. Will recheck CXR and UA in AM and continue to monitor closely for signs of deterioration or infection. Concern that the patient may have plateaued from a functional perspective. Case management continues to work on discharge planning. Anticipate discharge early next week, hopefully on 04/03/17 to [facility] in [place], per family. Plan - 04/01/17. Clinically, Devendra appears improved today with improved mentation after reduction in gabapentin per Dr. Pittman yesterday. He does admit to increased pain to his lower extremities with the reduction in the gabapentin but appreciates the improved mentation. Continue to encourage participation in therapies and pain control per Dr. Pittman. Significant concern and anxiety regarding pain during transfer to [place]. Patient requested to receive Gabapentin 200mg x 1 dose immediately prior to discharge as he received great pain control with the dose and would appreciate the increased somnolence during the ambulance ride. He also requested to be able to receive another dose of gabapentin or pain medication immediately prior to arrival in [place] to maintain his pain medication schedule knowing that he will not be able to receive medications immediately on his arrival to [facility]. Will discuss patient wishes with Dr. Pittman. Patient was seen by Dr. Mcintosh on 03/31/17 and felt the patient was hypovolemic. NS 75cc was stated with improvement in hyponatremia (Na 128). Continue NS 75cc/hr and monitor closely for signs of fluid overload. At the recommendation of Dr. Mcintosh, his spironolactone, Lasix and KCl were discontinued and his metolazone remains on hold given his hypovolemia. Fluid restriction was also lifted. Consider restarting diuretics, possibly at lower dose at time of admission. Will continue metoprolol 25mg BID as well as coumadin per Dr. Mcintosh. Will recheck CBC and BMP in AM to continue to monitor blood counts, electrolytes and renal function. Case management continues to work on discharge planning. Anticipate discharge early next week, hopefully on 04/03/17 to [facility] in [place], per family. 04/02/17 Sodium improved to 131. Continue IVF and continue to hold diuretics, appreciate Dr. Mcintosh's expertise. Plans for transfer to [facility] on 04/03 fell through. CM looking at other options. UC from 04/01 shows early growth -- cath specimen. 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 Cesar): EF >55 %; longstanding hx of a-fib 04/04/17 Start doxycycline 100 mg twice a day for infected sebaceous cyst. reports he has many allergies. Doxycycline is not listed. Use a warm moist compress to the area throughout the day. Will recheck the area tomorrow. Monitor for fever or worsening symptoms. Doesn' t appear appropriate for I&D at this time.
[2017-04-05] MEDS: CALCIUM CARBONATE Chewable 500mg TABLET PO SCH (13:30)
--- NOTE | 2017-04-05 13:50 | IRU Team Meeting ---
IRU Team Meeting - Nursing Bladder Assistive Devices Utilized:: Catheter Bladder Management Level of Assist: Total Assistance Bladder Frequency of Accidents: No accidents Bowel Assistive Devices Utilized:: Medication, Bedpan Bowel Management Level of Assist: Total Assistance Bowel Frequency of Accidents: No accidents; uses device Vital Signs: Vital Signs - 24 hr 04/04/17 14:58 04/04/17 16:00 04/04/17 16:32 Temperature 97.9 F Pulse Rate 71 73 Respiratory Rate 24 18 Blood Pressure 108/65 Pulse Oximetry 98 04/04/17 20:07 04/05/17 00:00 04/05/17 00:33 Temperature 98.0 F Pulse Rate 82 Respiratory Rate 16 24 28 H Blood Pressure 108/65 Pulse Oximetry 97 99 04/05/17 04:57 04/05/17 08:00 04/05/17 09:22 Temperature 97.9 F Pulse Rate 75 77 Respiratory Rate 27 H 20 Blood Pressure 117/57 Pulse Oximetry 99 97 04/05/17 09:59 04/05/17 12:02 Temperature Pulse Rate Respiratory Rate 26 H 27 H Blood Pressure Pulse Oximetry 99 99 Current Medications: Acetaminophen (Tylenol) 650 mg PO Q6H PRN PRN Reason: Pain Last Admin: 04/05/17 13:28 Dose: 650 mg Albuterol Sulfate (Proventil Neb (0.5%)) 2.5 mg AEROSOL RTQID [facility] Last Admin: 04/05/17 09:59 Dose: 2.5 mg Albuterol Sulfate (Proventil Neb (0.083%)) 2.5 mg AEROSOL Q2H PRN Last Admin: 04/05/17 12:02 Dose: 2.5 mg Ascorbic Acid (Vitamin C) 500 mg PO DAILY [facility] Last Admin: 04/05/17 08:24 Dose: 500 mg Bisacodyl (Dulcolax) 10 mg PO DAILY PRN PRN Reason: Constipation Bisacodyl (Dulcolax) 10 mg RECTALLY DAILY PRN PRN Reason: Constipation Calcium Carbonate (Tums) 500 mg PO NOON [facility] Last Admin: 04/05/17 13:30 Dose: 500 mg Chlorphenir/Hydrocodone Polistirex (Tussionex) 2.5 ml PO Q12H PRN PRN Reason: Cough Last Admin: 04/05/17 03:29 Dose: 2.5 ml Cholecalciferol (Vit. D-3) 1,000 unit PO DAILY [facility] Last Admin: 04/05/17 08:24 Dose: 1,000 unit Coenzyme Q10 (Co Q-10) 200 mg PO DAILY [facility] Last Admin: 04/05/17 08:25 Dose: 200 mg Escitalopram Oxalate (Lexapro) 20 mg PO DAILY [facility] Last Admin: 04/05/17 08:25 Dose: 20 mg Ferrous Sulfate (Feosol) 324 mg PO [facility] Last Admin: 04/05/17 08:25 Dose: 324 mg Gabapentin (Neurontin) 100 mg PO TID [facility] Last Admin: 04/05/17 08:24 Dose: 100 mg Guaifenesin (Mucinex) 400 mg PO QID [facility] Last Admin: 04/05/17 13:29 Dose: 400 mg Doxycycline Hyclate 100 mg/ (Sodium Chloride) 250 mls @ 250 mls/hr IV Q12HR [facility] Last Infusion: 04/05/17 10:10 Dose: Infused Lactobacillus Acidophilus (Culturelle) 2 cap PO [facility] Last Admin: 04/05/17 08:24 Dose: 2 cap Levothyroxine Sodium (Synthroid) 50 mcg PO ACB [facility] Last Admin: 04/05/17 08:26 Dose: Not Given Magnesium Hydroxide (Mom) 30 ml PO DAILY PRN PRN Reason: Constipation Last Admin: 03/23/17 16:21 Dose: 30 ml Metolazone (Zaroxolyn) 5 mg PO DAILY [facility] Last Admin: 03/28/17 09:24 Dose: 5 mg Metoprolol Tartrate (Lopressor) 25 mg PO BIDWM [facility] Last Admin: 04/05/17 08:25 Dose: 25 mg Naloxegol (Movantik) 12.5 mg PO ACB [facility] Last Admin: 04/05/17 08:26 Dose: Not Given Nystatin (Mycostatin) 5 ml PO QID [facility] Last Admin: 04/05/17 13:28 Dose: 5 ml Nystatin (Mycostatin) 1 applic TP TID [facility] Last Admin: 04/05/17 08:27 Dose: Not Given Oxycodone HCl (Roxicodone *Ir*) 5 mg PO Q4H PRN PRN Reason: Pain Last Admin: 04/05/17 10:09 Dose: 5 mg Pantoprazole Sodium (Protonix Tab) 40 mg PO ACB [facility] Last Admin: 04/05/17 08:27 Dose: Not Given Polyethylene Glycol (Miralax) 17 gm PO DAILY PRN Last Admin: 03/26/17 22:04 Dose: 17 gm Prednisone (Deltasone) 20 mg PO WB [facility] Last Admin: 04/05/17 08:24 Dose: 20 mg Senna/Docusate Sodium (Senna Plus Tablet) 2 tab PO BID [facility] Last Admin: 04/05/17 08:24 Dose: 2 tab Simethicone (Mylicon) 80 mg PO PCHS [facility] Last Admin: 04/05/17 13:30 Dose: 80 mg Sodium Chloride (Deep Sea Nasal Moisturizing [place]) 1 spray EA NOSTRIL PRN PRN PRN Reason: Congestion Sodium Chloride (Iv Flush) 10 ml IV PRN PRN PRN Reason: Flushing Last Admin: 04/04/17 08:07 Dose: 10 ml Warfarin Sodium (Coumadin Protocol) 0 [facility] NOTE SHIKHA Warfarin Sodium (Coumadin) 2.5 mg PO NOON [facility] Last Admin: 04/05/17 13:29 Dose: 2.5 mg Current Medical Issues: cough, RA, infected sebacious cyst on IV Doxycycline, COPD, multiple skin lesions Comments: I certify that I personally led the interdisciplinary team meeting and agree with comments, barriers and goals indicated. Team meeting was held in the patient's room with the patient and the following family members present: patient's spouse Mr. Hutchinson developed an infected sebaceous cyst near his neck. He was started on intravenous doxycycline. Had a bad night with frequent coughing. Sputum is about the same. He remains on BiPAP when he rests. He has easy fatigability. His appetite is reasonably good. - Dietary Increased protein snacks are being sought. Intake is otherwise been reasonably good. - Physical Therapy Bed, Chair, Wheelchair Transfer Assist: Total Assistance, 2 or More Person Assist Ambulation Ability: Patient Unsafe/Unable Ambulation Distance: 0 Wheelchair Propulsion Ability: Total Assistance Wheelchair Propulsion Distance: 10 Stair Climbing Ability: Patient Unsafe/Unable Car Transfer Ability: Patient Unsafe/Unable Comments: Mr. Hutchinson has not made progress with therapy. Requires significant motivation. In addition, more than half of his therapy session is spent with a rest break. - Occupational Therapy Eating Ability: Stand By Assist/Supervision Grooming Ability: Minimal Assistance Bathing Ability: Maximal Assistance, 2 or More Person Assist Upper Body Dressing Ability: Minimal Assistance Lower Body Dressing Ability: Total Assistance Tub Transfer Assist: Patient Unsafe/Unable Toileting Assist: Total Assistance Toilet Transfer Assist: Total Assistance Comments: Unfortunately patient is not making progress with occupational therapy. - Goals Physical Therapy Goals: 03/22/17 Goals: 1.) Walk 5 feet with walker - not met. 2.) Moderate assist with sit to stand transfer - not met. 3.) Proper hand placement with stand to sit transfer 100% of the time. - not met. 04/05/17 Goals : Continue above. Occupational Therapy Goals: OT goals 03/22/17, 04/05/17: 1.) Pt. to demonstrate transfer to [facility] with moderate assist. - continue (total assist required). 2.) Pt. to perform lower body dressing with moderate assist. - continue (total assist required). 3.) Pt. to perform upper body dressing with set-up assist. - continue (min assist required) - Barriers to Discharge Barriers to Attaining Goals: Endurance (efforts are underway with therapy to improve endurance through therapy.), Pain Control (patient is on multiple medications for his pain.), Medical Limitation (has chronic dyspnea with COPD, atrial fibrillation and skin integrity. He has extensive wound care needs.) - Care Plan Anticipated Length of Stay (days): 1 Anticipated Length of Stay: Reassess in one week Anticipated DC Destination: Detention/Facility I have led this team conference and agree with the plan. Interventions/Goals: Efforts are underway for placement.
[2017-04-05] MEDS ORDERED: ARTIFICIAL TEARS 15ml EACH EYE PRN (20:13)
[2017-04-06] MEDS: Oxycodone *IR* 5 MG TABLET PO PRN ×6 (02:55→23:58)
[2017-04-06] MEDS: NALOXEGOL 12.5 MG TABLET PO SCH (06:21)
[2017-04-06] MEDS: LEVOTHYROXINE 50 MCG TABLET PO SCH (06:22)
[2017-04-06] MEDS: PANTOPRAZOLE 40 MG TABLET PO SCH (06:22)
[2017-04-06] MEDS: ALBUTEROL 2.5mg/0.5ml (0.5%) NEB AEROSOL SCH ×4 (08:15→20:08)
[2017-04-06] MEDS: GABAPENTIN 100 MG CAPSULE PO SCH ×4 (08:42→22:05)
--- NOTE | 2017-04-06 09:45 | Progress Note ---
- Date 04/06/17 Subjective: Patient is seen sitting in bed. reports he's been more short of breath and coughing more. She believes he's fluid overloaded. His Zaroxolyn was restarted yesterday. She reports he's been having more pain. For the last 4 days pain has been 8-9/10. She reports prior to this he was not consistently having pain this severe. She thinks it is because of the extra fluid, and backing off on the gabapentin. He has not noted any significant changes in the area of the infected sebaceous cyst. Lab has been unable to draw his blood. His midline will flush, but they're not able to draw blood through it and he has no other veins they are able to draw from. is also concerned he may have pinkeye. She's noted mattering from the eyes for the last several days and they continue to burn despite the use of Visine. Objective Vital signs: Temperature 98.0 F 04/06/17 08:30 Pulse Rate 86 04/06/17 08:30 Respiratory Rate 20 04/06/17 08:30 Blood Pressure 137/67 04/06/17 08:30 Pulse Oximetry 98 04/06/17 08:30 Height/Weight/BMI: Height 1.7 m Weight 135 kg Body Mass Index 45.0 - Constitutional Present: no acute distress, well nourished, well developed, obese - Routine HEENT Exam Head: Present: normocephalic, atraumatic Eye: Present: conjunctivae pink (bilateral with yellow mattering noted on the lower lids bilaterally) - Routine Respiratory Exam Present: CTA bilaterally, crackles (bilateral bases). Absent: wheezes - Routine Cardiovascular Exam Present: no murmur, irregularly irregular - Routine Abdominal Exam Present: soft, non tender - Routine Extremities Exam Present: edema (he has 1-2+ pitting edema of the entire leg into the feet.), normal capillary refill - Routine Skin Exam Present: dry, warm Comments: Multiple crusty lesions and erythema. Sebaceous cyst below the left neck remains about the same. Perhaps some decrease in redness and a little less tender. - Routine Neurological Exam Present: alert - Routine Lymphatic Exam Lymphatic: Absent: adenopathy - Routine Psychiatric Exam Present: normal affect, cooperative Results - Labs CBC & Chem 7: 04/05/17 05:15 04/04/17 04:34 Microbiology Results: Microbiology 04/01/17 19:43 Urine, Cath Sigala Urine Culture - Final Mixed Bacterial Daryl 03/30/17 02:46 Urine, Cath Sigala, Chronic Urine Culture - Final Mixed Bacterial Daryl Present -No further testing will be performed Assessment and Plan (1) Myopathy Current visit: Yes Status: Acute (2) Squamous cell skin cancer Current visit: Yes Status: Chronic (3) Acute on chronic respiratory failure with hypoxemia Current visit: Yes Status: Acute Assessment and Plan: Impression Infected sebaceous cyst proximal to left side of neck-(diagnosed 04/04/17) Syncope, recurrent and chronic: workup negative Conjunctivitis-not POA (diagnosed 04/06/17) Acute encephalopathy - improved Generalized Myopathy Skin lesions consistent with basal cell and squamous cell carcinoma Recent influenza A with continued hypoxia. Hyponatremia, chronic, baseline 128-130 Intertriginous dermatitis Chronic atrial fibrillation Congestive heart failure. 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 Hypothyroidism - resumed levothyroxine on 03/18/17 history of asthma history of seizures Plan Continue doxycycline 100 mg twice a day for infected sebaceous cyst. Added probiotic for gastrointestinal health. Erythromycin ointment twice a day for conjunctivitis. Warm moist compresses BID. Will change midline to a PICC line. Dr. Mcintosh had recommended when diuretics are resumed, Lasix be initiated first. Resume Lasix 40 twice a day. Monitor labs. He will likely need Zaroxolyn as well, as this has been the case in the past. Pain control per Dr. Pittman. - Physician Narrative Narrative: Date: 04/06/17 Time: 940 Hospital Course Summary Disclaimer: The visit summary below is not to be considered part of the above Progress Note. Hospital Course: Plan Agree with admission to inpatient rehabilitation unit under the care of Dr. Pittman for significant myopathy and weakness secondary to recent acute hospitalization and illness. Patient does have a very complex past medical history and current chronic comorbidities. Appreciate hospitalist consultation for assistance in medical management. Consultation placed with the wound care team for evaluation and recommendations of ongoing wound care. Left leg squamous cell carcinoma-stable. Patient scheduled to follow with radiation oncology once medically improved. does report that she would like to use her homemade "save" which contains eggplant an essential oil. Consult to pharmacy for ongoing management of INR and Coumadin dosing. Patient has known positive urine culture for VRE. Will forego any treatment. Given chronic colonization of indwelling Sigala catheter Patient does wish to be a full code and this orders written. Appreciate medical consultation, the hospitalist services will continue to follow patient medically manage his existing comorbidities during his stay on IRU unit. At time of discharge his medical care will return to his primary care provider in Dr. Doug Ang in [place] 03/18/17 Give additional Lasix 40 mg PO now; start daily weights. Sounds like he has a hx of flash pulmonary edema; reports he was previously on Lasix TID then was decreased to BID -- monitor fluid status closely as we may need to provide extra diuresis periodically versus adding another dose in the afternoon. Will recheck BMP in am. Change dosing of gabapentin to 300 mg TID and 300 mg at 0200, per 's request. Increase simethicone to home dosing schedule. Resume levothyroxine 50 mcg -- he took this in [place]. Consider wound consultation. Suspect mild leukocytosis is chronic given prednisone use though will recheck CBC in am to document stability. INR is therapeutic. 03/20/17 Na decreased to 125 but exam suggests fluid positive state. Will increase Lasix to 60 mg BID, starting this afternoon. Will resume spironolactone. Wait on resuming KDur since K was still elevated at 4.8 but we may need to resume K soon. Renal status stable Rn to call wound team regarding excoriation under left breast. INR is therapeutic; high risk medication in use. Encourage PT/OT/activity as siva. Discussed with Dr. Pittman and with Dr. Ruvalcaba. 2/2 Given increased edema and increase in weight. We will give an additional 40 milligrams of Lasix both this evening and tomorrow evening. Recheck BMP tomorrow morning to follow electrolytes and renal function. Patient may need additional testing supplementation. Discussed importance of bowel motivation. Continue on current regimen Oral Dulcolax, Colace, senna plus, MiraLAX, milk of magnesia. Did also add Dulcolax suppository and encouraged nursing to try a brown cow. Recommend using suppository. By this evening if no bowel movements. This will also help with fluid retention and edema. Otherwise doing well. 2/3 His wt is up 6kg since yesterday which is likely an error. Clinically this does not appear to be the case. He is difficult to weigh. Will reweigh in the am. Will cancel the extra dose of Lasix as ordered this evening given his drop in sodium. His urine is dark, breathing is ok and swelling is less. Likely doesn't need further diuresis. Sodium down to 126 from 132 yesterday. Will continue to follow. Case discussed with Dr. Thomas. 03/27 Sodium is again down to 124. Nursing staff does report patient drinks "numerous pitchers of water a day". This is likely attributing to hyponatremia. Weight yesterday at baseline admission weight. Continue to watch daily weights Will decrease second Lasix dose to 40mg at 1400 and continue with 60 mg in the am 03/28 Recurrent syncope -- check EKG, trop x3, CT head, CXR Acute encephalopathy -- poss r/t hyponatremia; Na down to 123 today ? intervascularly dry Hold Lasix this afternoon. Hold metolazone. Give NS 500 mL IVF today. Cont wound care -- asks about dsg options other than Mepilex EKG personally reviewed: A-fib with controlled rate; No ST elevation/depression ; RBBB; +Q wave lat leads CXR personally reviewed: no pulmonary congestion/infiltrate Trop #1 = 0.[address] pending. I spoke with Dr. Ang from [place]. During his 90+ day SNF stay he showed only minimal improvement in functional status. He tends to run about 128-130 on sodium level, with elevated bicarb as well. He has had several syncopal episodes during his SNF stay. Diuretics at time of dc were: Spironolactone 25 mg BID, metolazone 5 mg daily, and Lasix [address] Ang noted anasarca while at SNF. LTC placement was recommended but pt/ declined. 03/29 Encephalopathy is better today. Na still low but increased to 125 after fluid bolus yesterday/holding diuretics. He had Lasix this morning but will hold the rest of his diuretics today. Recheck BMP/mg in am to re-eval electrolytes/renal function and possibly resume diuretics. I did reach Dr. Ang yesterday, who reported that Devendra was on Spironolactone 25 mg BID, metolazone 5 mg daily, and Lasix 80 mg BID while at [facility] in [place]. Oxycodone and gabapentin doses reduced today per Dr. Pittman. Movantik started for opioid induced constipation IRU team meeting planned this afternoon to discuss discharge plans. 03/30 Multifactorial encephalopathy -- Very drowsy with delayed processing and/or verbal responses. Gabapentin dose further adjusted per Dr. Pittman. Could be r/t hyponatremia; difficult to assess intravascular fluid status. Weight is down from 135 kg yesterday to 129.5 this am, and diuretics have been on hold for 2 days. ABG ordered, but pt was not hypercarbic or acidotic. Another consideration is depression, and we may want to consider psych consultation. Case was discussed with Dr. Mcintosh. Spironolactone can cause hyponatremia and he recommends decreasing dose to 25 mg. He also recommends restarting Lasix but continue to hold metolazone, start tele d/t syncope and hx a-fib, tighten fluid restriction from 1500 to [id number] ml/day, check orthostatics if able, and obtain an echo. He will see Devendra either tonight or tomorrow am. In addition, records have been requested from Dr. Cesar's office at [facility] in [place]. He has been afebrile; UC pending. Sigala in place. Pt may have plateaued from a functional perspective and CM is looking into other placement options. Plan - 03/31/17. Mr. Miller multifactorial encephalopathy appears improved today as compared to yesterday. Family expressed concern about increased somnolence this morning after the patient received his gabapentin. Dr. Pittman was contacted and his gabapentin dose was decreased to 100mg TID. Will continue to monitor. Patient was seen by Dr. Mcintosh this morning for further evaluation of his diastolic CHF. He discussed his recommendations with Dr. Moran and stated that he felt the patient was hypovolemic. Will start NS 75cc/hr for hydration. Monitor fluid status closely in addition to urinary output for signs of fluid overload. Given his hyponatremia, will stop his spironolactone, Lasix and KCl and continue to hold his metolazone. Fluid restriction was discontinued. Will continue metoprolol 25mg BID as well as coumadin per Dr. Mcintosh. Will recheck has labs in the AM to monitor blood counts, electrolytes and renal function. Slight increase in leukocytosis at 14.5 with 7% bands. Patient remains afebrile. Prior UA obtained revealed + nitrite with 30-50 WBC and 1+ bacteria. Culture revealed mixed daryl. Will recheck CXR and UA in AM and continue to monitor closely for signs of deterioration or infection. Concern that the patient may have plateaued from a functional perspective. Case management continues to work on discharge planning. Anticipate discharge early next week, hopefully on 04/03/17 to [facility] in [place], per family. Plan - 04/01/17. Clinically, Devendra appears improved today with improved mentation after reduction in gabapentin per Dr. Pittman yesterday. He does admit to increased pain to his lower extremities with the reduction in the gabapentin but appreciates the improved mentation. Continue to encourage participation in therapies and pain control per Dr. Pittman. Significant concern and anxiety regarding pain during transfer to [place]. Patient requested to receive Gabapentin 200mg x 1 dose immediately prior to discharge as he received great pain control with the dose and would appreciate the increased somnolence during the ambulance ride. He also requested to be able to receive another dose of gabapentin or pain medication immediately prior to arrival in [place] to maintain his pain medication schedule knowing that he will not be able to receive medications immediately on his arrival to [facility]. Will discuss patient wishes with Dr. Pittman. Patient was seen by Dr. Mcintosh on 03/31/17 and felt the patient was hypovolemic. NS 75cc was stated with improvement in hyponatremia (Na 128). Continue NS 75cc/hr and monitor closely for signs of fluid overload. At the recommendation of Dr. Mcintosh, his spironolactone, Lasix and KCl were discontinued and his metolazone remains on hold given his hypovolemia. Fluid restriction was also lifted. Consider restarting diuretics, possibly at lower dose at time of admission. Will continue metoprolol 25mg BID as well as coumadin per Dr. Mcintosh. Will recheck CBC and BMP in AM to continue to monitor blood counts, electrolytes and renal function. Case management continues to work on discharge planning. Anticipate discharge early next week, hopefully on 04/03/17 to [facility] in [place], per family. 04/02/17 Sodium improved to 131. Continue IVF and continue to hold diuretics, appreciate Dr. Mcintosh's expertise. Plans for transfer to [facility] on 04/03 fell through. CM looking at other options. UC from 04/01 shows early growth -- cath specimen. Records received from [facility] in [place] (rig mechanic: Dr. Cesar): EF >55 %; longstanding hx of a-fib 04/04/17 Start doxycycline 100 mg twice a day for infected sebaceous cyst. reports he has many allergies. Doxycycline is not listed. Use a warm moist compress to the area throughout the day. Will recheck the area tomorrow. Monitor for fever or worsening symptoms. Doesn' t appear appropriate for I&D at this time. 04/06/17 Continue doxycycline 100 mg twice a day for infected sebaceous cyst. Added probiotic for gastrointestinal health. Erythromycin ointment twice a day for conjunctivitis. Warm moist compresses BID. Will change midline to a PICC line. Dr. Mcintosh had recommended when diuretics are resumed, Lasix be initiated first. Resume Lasix 40 twice a day. Monitor labs. He will likely need Zaroxolyn as well, as this has been the case in the past. Pain control per Dr. Pittman.
[2017-04-06] MEDS ORDERED: LACTOBACILLUS (15B cfu) CAPSULE PO SCH (09:57)
[2017-04-06] MEDS: COENZYME Q-10 200mg TABLET PO SCH (10:12)
[2017-04-06] MEDS: PredniSONE 20 MG TABLET PO SCH (10:12)
[2017-04-06] MEDS: LACTOBACILLUS (15B cfu) CAPSULE PO SCH ×2 (10:12→17:53)
[2017-04-06] MEDS: FERROUS SULFATE 324 MG TABLET PO SCH (10:13)
[2017-04-06] MEDS: SENNA + DOCUSATE TABLET PO SCH ×2 (10:13→22:04)
[2017-04-06] MEDS: ESCITALOPRAM 20 MG TABLET PO SCH (10:13)
[2017-04-06] MEDS: NYSTATIN 500,000 units/5 ml ORAL LIQUID PO SCH ×4 (10:14→22:04)
[2017-04-06] MEDS: GUAIFENESIN 400MG TABLET PO SCH ×5 (10:14→22:20)
[2017-04-06] MEDS: ASCORBIC ACID 500 MG TABLET PO SCH (10:14)
[2017-04-06] MEDS: FUROSEMIDE 40 MG TABLET PO SCH ×2 (10:14→15:45)
[2017-04-06] MEDS: SIMETHICONE 80 MG CHEWABLE TABLET PO SCH ×4 (10:14→22:05)
[2017-04-06] MEDS: DOXYCYCLINE 100 MG in NS 250ml 250 ML IV SCH ×2 (10:21→22:03)
--- NOTE | 2017-04-06 11:14 | IRU Progress Note ---
- Subjective/Serverity of Illness Date: 04/06/17 Mr. Hutchinson continues to have difficulty with pain management. He is on a low- dose of gabapentin at 100 mg 3 times daily. In the past when we have increased the amount he tends to become too sedated. However, at this point his and he would like to have this increased despite that concern. We will therefore increase it to 200 mg 4 times daily. He says he would like to be awakened in the middle the night for this at 2 AM. Please see orders in this regard. Secondly, the patient does have a cough with sputum. He does have some crackles in the left base. I have discussed with Elin with the hospitalist service and we will check a chest x-ray. Thirdly, he does have evidence of fluid excess based on his weight. In addition he does have some upper extremity edema. He was given metolazone yesterday and starting on Lasix twice a day today. This is per the hospitalist service. From a therapy standpoint he continues to not make significant progress unfortunately. Efforts are underway for placement. Exam Vital Signs: Temperature 98.0 F 04/06/17 08:30 Pulse Rate 86 04/06/17 08:30 Respiratory Rate 20 04/06/17 08:30 Blood Pressure 137/67 04/06/17 08:30 Pulse Oximetry 98 04/06/17 08:30 Height/Weight/BMI: Height 1.7 m Weight 135 kg Body Mass Index 45.0 - Constitutional Present: moderate distress (patient is upset and not happy due to ongoing discomfort and difficulty resting at night.), well nourished, well developed, morbidly obese. Absent: cooperative - Routine HEENT Exam Head: Present: normocephalic Eye: Present: EOMI ENT: Present: mucous membranes moist, oropharynx clear Comments: Erythromycin eye ointment has been started. - Routine Neck Exam Present: supple - Routine Respiratory Exam Present: decreased breath sounds, crackles (left basilar crackles noted.). Absent: respiratory distress, wheezes - Routine Cardiovascular Exam Present: S1, S2, irregularly irregular. Absent: murmur - Routine Abdominal Exam Present: soft, normoactive bowel sounds, non distended. Absent: tenderness - Routine Extremities Exam Present: edema (does have some generalized edema although not really in the ankles or feet.) - Routine Back/Spine/Pelvis Exam Back/Spine: Absent: full ROM - Routine Skin Exam Present: dry, warm, lesions, wounds - Routine Neurological Exam Present: alert, oriented X3, CN II-XII intact - Routine Psychiatric Exam Present: normal affect, depressed, anxious. Absent: cooperative, good insight, good judgment IRU A/P (1) Myopathy Current visit: Yes Status: Acute Patient has not been able to progress with therapy and remains with significant disuse myopathy signs and symptoms. (2) Influenza A Current visit: Yes Status: Resolved (3) Rheumatoid arthritis Qualifiers: Rheumatoid arthritis location: multiple sites Rheumatoid factor presence: unspecified presence Qualified Code(s): M06.9 - Rheumatoid arthritis, unspecified Current visit: Yes Status: Chronic Continues to have significant generalized pain. This is very difficult to manage as in the past when we have increased gabapentin he becomes too sedated. However, at this point his and the patient are both in agreement with increasing gabapentin despite that risk. For this reason we will increase to 20 mg 4 times daily at specific times as requested by patient and . (4) Atrial fibrillation, chronic Current visit: Yes Status: Chronic INR remains therapeutic. (5) (HFpEF) heart failure with preserved ejection fraction Current visit: Yes Status: Chronic Received Zaroxolyn yesterday and starting on Lasix twice daily today. (6) CKD (chronic kidney disease) stage 3, GFR 30-59 ml/min Current visit: Yes Status: Chronic (7) Squamous cell skin cancer Current visit: Yes Status: Chronic (8) Chronic indwelling Sigala catheter Current visit: Yes Status: Chronic (9) Acute on chronic respiratory failure with hypoxemia Current visit: Yes Status: Acute (10) Acute bronchospasm Current visit: Yes Status: Resolved (11) SONYA (obstructive sleep apnea) Current visit: Yes Status: Chronic (12) Slow transit constipation Current visit: Yes Status: Acute (13) Hyponatremia Current visit: Yes Status: Chronic (14) Neuropathic pain of both legs Current visit: Yes Status: Chronic (15) Syncope Qualifiers: Syncope type: unspecified Qualified Code(s): R55 - Syncope and collapse Current visit: Yes Status: Resolved DVT Prophylaxis: Coumadin Resuscitation Status: Do Not Resuscitate - Course Hospital Course: Pedro Pittman MD: 03/16/17 12:11 Multiple medical problems as outlined. Severe weakness noted. Just getting started with therapies. 03/19/17 12:04 Patient is cooperative and participates with therapy although progress is quite slow. Continues to have expiratory wheezes. He is afebrile. Numerous skin lesions identified. would like to have lidocaine used for dressing removal. I will discuss with wound care. 03/20/17 10:44 Multiple skin lesions will require continued meticulous nursing management. Medically he seems stable. Lungs are clear. INR is therapeutic. He is participating with therapy. 03/22/17 11:35 Slow progression with therapy. Multiple skin lesions noted and being monitored by nursing including wound care nurse. INR subtherapeutic. 03/23/17 11:46 Slow progress with therapy. INR therapeutic. Complains of constipation. 03/26/17 14:53 Progress continues to be slow. Sodium down to 126. Weight was up to 133 and now down to 130 kg. Easy fatigability and continued evidence of critical illness/disuse myopathy. 03/27/17 10:30 Sodium down to 124. He is overdrinking fluids and he was advised not to do that. Now on a fluid restriction. Complains of pain in the right leg heel pad area but also throughout the leg. We will modify the gabapentin dose. 03/29/17 10:09 Patient remains very complex. Diuretics held. Sodium still low 125. Syncope yesterday. Somewhat slow to respond. We will reduce gabapentin. 03/30/17 11:22 Patient is more alert today. Exam is otherwise negative for changes. Weight is up. Sodium 125. Continues to be plateaued with therapy. 04/02/17 10:58 Patient continues to plateau with therapy. He does seem to be more awake and alert with less gabapentin. Sodium improved to 131 which may also help his mentation. Plans are to transfer to [place] in [place] tomorrow. 04/03/17 11:19 Continues to have very poor exercise tolerance. Likely he is depressed. Continues to work with therapy. Placement in progress. 04/05/17 10:52 He is non-participatory with physical therapy for the most part. He is now making progress with occupational therapy. Had a difficult night with cough. He is on doxycycline for an infected sebaceous cyst. Placement in progress. 04/06/17 11:19 The above statement should read that he is "not making progress with occupational therapy." Continues to be in a plateau pattern with regard to therapy. Continues to have a cough. He is on doxycycline. Placement is in progress. - Interventions to Obtain Goals PT Treatment Plan: Balance/Proprioception, Functional Activities, Gait Training , Patient/Family Education, Therapeutic Exercise OT Treatment Plan: ADL (Basic Care), Balance Training, Pt./Family Education, Ther. Exercise for ADL Goals Progress/Modifications: Time spent with patient and on floor reviewing data and documentin min Medical decision-making: Patient is medically complex. He has been on gabapentin 100 mg 3 times daily. He would like to have improved pain management. He is aware that taking more gabapentin may well result in further sedation. He is okay with that. We'll increase this to 200 mg 4 times daily as specific times. Secondly, he is undergoing diuresis by the hospitalist service. Weight is up. Thirdly, he does have some crackles in the left base and does have a cough. It is recognized that he is artery on intravenous doxycycline. However because of the persistent crackles we will check a chest x-ray.
[2017-04-06] MEDS: ACETAMINOPHEN 325 MG TABLET PO PRN (13:00)
[2017-04-06] MEDS: CALCIUM CARBONATE Chewable 500mg TABLET PO SCH (13:37)
[2017-04-06] MEDS: WARFARIN 2.5 MG TABLET PO SCH (13:37)
[2017-04-06] MEDS: ERYTHROMYCIN 0.5% EYE OINTMENT 1 GRAM TUBE EACH EYE SCH ×2 (13:37→22:06)
--- NOTE | 2017-04-06 16:05 | Wound Care Progress Note ---
Wound Center Progress Note: Pt at this time finished PT/OT wound care in and at this time changed all drsgs on bilateral legs, wounds are no worse or any better just stable. His back and bottom are red with no new wounds. After dressing changed pt rolled to his right side with his gown off and a fan blowing on back and bottom. Trying to get air to that area.
--- NOTE | 2017-04-06 16:32 | XRay Report ---
Indication: cough PROCEDURE: XR chest 1V: Encounter: Initial Comparison: April 01, 2017 Findings: PICC line in place with the tip difficult to discretely localize. The tip appears to be in the superior to mid SVC. No pneumothorax. Lungs are grossly stable. No new consolidation or pleural effusion. Cardiac silhouette remains enlarged. Mediastinal contours are stable. Pulmonary vascularity is normal. Impression: New left PICC line tip appears to project over the superior to mid SVC. .
--- NOTE | 2017-04-06 17:29 | Cardiology Progress Note ---
Subjective Interval history: Patient complains of 8/10 bilateral leg pain - pt's said Gabapentin was getting increased to 200mg for that. He says he is otherwise doing okay today - still needing intermittent CPAP for dyspnea. Pt says he has increased edema today. Pt denies chest pain or palpitations. Pt had worked with therapies today. Tele shows stable a fib in the 70s. CXR shows no congestion. Exam Vital signs: Temperature 97.5 F 04/06/17 15:53 Pulse Rate 80 04/06/17 15:53 Respiratory Rate 24 04/06/17 16:09 Blood Pressure 93/52 04/06/17 15:53 Pulse Oximetry 97 04/06/17 16:09 - Constitutional no acute distress, well developed, morbidly obese, cooperative - Routine HEENT Exam Head: Present: normocephalic, atraumatic Eye: Present: EOMI, PERRL ENT: Present: mucous membranes moist - Routine Neck Exam Present: supple. Absent: JVD - Routine Respiratory Exam Present: CTA bilaterally, rhonchi (few rhonchi in bases). Absent: crackles - Routine Cardiovascular Exam Present: irregularly irregular - Routine Abdominal Exam Present: soft, normoactive bowel sounds - Routine Extremities Exam Present: edema (pitting edema 1-2+ anasarca). Absent: cyanosis, clubbing - Routine Skin Exam Present: erythema, lesions (squamous cell). Absent: cyanosis - Routine Neurological Exam Present: alert, oriented X3, CN II-XII intact - Routine Psychiatric Exam Present: normal affect, cooperative - Urinary Catheter Management Urethral Cath placed during this visit: no Results 04/10/17 04:39 04/10/17 04:39 Comprehensive Metabolic Panel 04/06/17 Range/Units 08:45 Sodium Cancelled Potassium Cancelled Chloride Cancelled Carbon Dioxide Cancelled BUN Cancelled Creatinine Cancelled Glucose Cancelled Calcium Cancelled Intake and Output 04/06/17 04/06/17 04/06/17 06:59 14:59 22:59 Intake Total 880 / 880 Output Total 1600 / 1600 Balance 880 / 880 -1600 / -1600 Intake: IV 250 / 250 Doxycycline 100 mg In NS 250ml 250 / 250 250 ml @ 250 mls/hr IV Q12HR SHIKHA Rx#:[id number] Oral 480 / 480 Intake, Catheter Irrigant 150 / 150 Amount Output: Urine 1600 / 1600 Assessment and Plan - Assessment and Plan DCHF Atrial fibrillation chronic hyponatremia hypoalbuminemia Tele has been stable for 1 week so able to D'C tele. Agree with gentle po diuresis. Monitor BP and Na with diuresis. Monitor BMP. agree with warfarin and BB. Sign off. Please call if needed. outpatient f/u with local [facility] criminal [facility] please. Hospital Course Summary Disclaimer: The visit summary below is not to be considered part of the above Progress Note. Hospital Course: Plan Agree with admission to inpatient rehabilitation unit under the care of Dr. Pittman for significant myopathy and weakness secondary to recent acute hospitalization and illness. Patient does have a very complex past medical history and current chronic comorbidities. Appreciate hospitalist consultation for assistance in medical management. Consultation placed with the wound care team for evaluation and recommendations of ongoing wound care. Left leg squamous cell carcinoma-stable. Patient scheduled to follow with radiation oncology once medically improved. does report that she would like to use her homemade "save" which contains eggplant an essential oil. Consult to pharmacy for ongoing management of INR and Coumadin dosing. Patient has known positive urine culture for VRE. Will forego any treatment. Given chronic colonization of indwelling Sigala catheter Patient does wish to be a full code and this orders written. Appreciate medical consultation, the hospitalist services will continue to follow patient medically manage his existing comorbidities during his stay on IRU unit. At time of discharge his medical care will return to his primary care provider in Dr. Doug Ang in [place] 03/18/17 Give additional Lasix 40 mg PO now; start daily weights. Sounds like he has a hx of flash pulmonary edema; reports he was previously on Lasix TID then was decreased to BID -- monitor fluid status closely as we may need to provide extra diuresis periodically versus adding another dose in the afternoon. Will recheck BMP in am. Change dosing of gabapentin to 300 mg TID and 300 mg at 0200, per 's request. Increase simethicone to home dosing schedule. Resume levothyroxine 50 mcg -- he took this in [place]. Consider wound consultation. Suspect mild leukocytosis is chronic given prednisone use though will recheck CBC in am to document stability. INR is therapeutic. 03/20/17 Na decreased to 125 but exam suggests fluid positive state. Will increase Lasix to 60 mg BID, starting this afternoon. Will resume spironolactone. Wait on resuming KDur since K was still elevated at 4.8 but we may need to resume K soon. Renal status stable Rn to call wound team regarding excoriation under left breast. INR is therapeutic; high risk medication in use. Encourage PT/OT/activity as siva. Discussed with Dr. Pittman and with Dr. Ruvalcaba. 2/2 Given increased edema and increase in weight. We will give an additional 40 milligrams of Lasix both this evening and tomorrow evening. Recheck BMP tomorrow morning to follow electrolytes and renal function. Patient may need additional testing supplementation. Discussed importance of bowel motivation. Continue on current regimen Oral Dulcolax, Colace, senna plus, MiraLAX, milk of magnesia. Did also add Dulcolax suppository and encouraged nursing to try a brown cow. Recommend using suppository. By this evening if no bowel movements. This will also help with fluid retention and edema. Otherwise doing well. 2/3 His wt is up 6kg since yesterday which is likely an error. Clinically this does not appear to be the case. He is difficult to weigh. Will reweigh in the am. Will cancel the extra dose of Lasix as ordered this evening given his drop in sodium. His urine is dark, breathing is ok and swelling is less. Likely doesn't need further diuresis. Sodium down to 126 from 132 yesterday. Will continue to follow. Case discussed with Dr. Thomas. 2/ Sodium is again down to 124. Nursing staff does report patient drinks "numerous pitchers of water a day". This is likely attributing to hyponatremia. Weight yesterday at baseline admission weight. Continue to watch daily weights Will decrease second Lasix dose to 40mg at 1400 and continue with 60 mg in the am 2 Recurrent syncope -- check EKG, trop x3, CT head, CXR Acute encephalopathy -- poss r/t hyponatremia; Na down to 123 today ? intervascularly dry Hold Lasix this afternoon. Hold metolazone. Give NS 500 mL IVF today. Cont wound care -- asks about dsg options other than Mepilex EKG personally reviewed: A-fib with controlled rate; No ST elevation/depression ; RBBB; +Q wave lat leads CXR personally reviewed: no pulmonary congestion/infiltrate Trop #1 = 0.[address] pending. I spoke with Dr. Ang from [place]. During his 90+ day SNF stay he showed only minimal improvement in functional status. He tends to run about 128-130 on sodium level, with elevated bicarb as well. He has had several syncopal episodes during his SNF stay. Diuretics at time of dc were: Spironolactone 25 mg BID, metolazone 5 mg daily, and Lasix [address] Ang noted anasarca while at [facility]. LTC placement was recommended but pt/ declined. 03/29 Encephalopathy is better today. Na still low but increased to 125 after fluid bolus yesterday/holding diuretics. He had Lasix this morning but will hold the rest of his diuretics today. Recheck BMP/mg in am to re-eval electrolytes/renal function and possibly resume diuretics. I did reach Dr. Ang yesterday, who reported that Devendra was on Spironolactone 25 mg BID, metolazone 5 mg daily, and Lasix 80 mg BID while at [facility] in [place]. Oxycodone and gabapentin doses reduced today per Dr. Pittman. Movantik started for opioid induced constipation IRU team meeting planned this afternoon to discuss discharge plans. 03/30 Multifactorial encephalopathy -- Very drowsy with delayed processing and/or verbal responses. Gabapentin dose further adjusted per Dr. Pittman. Could be r/t hyponatremia; difficult to assess intravascular fluid status. Weight is down from 135 kg yesterday to 129.5 this am, and diuretics have been on hold for 2 days. ABG ordered, but pt was not hypercarbic or acidotic. Another consideration is depression, and we may want to consider psych consultation. Case was discussed with Dr. Mcintosh. Spironolactone can cause hyponatremia and he recommends decreasing dose to 25 mg. He also recommends restarting Lasix but continue to hold metolazone, start tele d/t syncope and hx a-fib, tighten fluid restriction from 1500 to 3162-2552 ml/day, check orthostatics if able, and obtain an echo. He will see Devendra either tonight or tomorrow am. In addition, records have been requested from Dr. Cesar's office at [facility]. He has been afebrile; UC pending. Sigala in place. Pt may have plateaued from a functional perspective and CM is looking into other placement options. Plan - 03/31/17. Mr. Miller multifactorial encephalopathy appears improved today as compared to yesterday. Family expressed concern about increased somnolence this morning after the patient received his gabapentin. Dr. Pittman was contacted and his gabapentin dose was decreased to 100mg TID. Will continue to monitor. Patient was seen by Dr. Mcintosh this morning for further evaluation of his diastolic CHF. He discussed his recommendations with Dr. Moran and stated that he felt the patient was hypovolemic. Will start NS 75cc/hr for hydration. Monitor fluid status closely in addition to urinary output for signs of fluid overload. Given his hyponatremia, will stop his spironolactone, Lasix and KCl and continue to hold his metolazone. Fluid restriction was discontinued. Will continue metoprolol 25mg BID as well as coumadin per Dr. Mcintosh. Will recheck has labs in the AM to monitor blood counts, electrolytes and renal function. Slight increase in leukocytosis at 14.5 with 7% bands. Patient remains afebrile. Prior UA obtained revealed + nitrite with 30-50 WBC and 1+ bacteria. Culture revealed mixed daryl. Will recheck CXR and UA in AM and continue to monitor closely for signs of deterioration or infection. Concern that the patient may have plateaued from a functional perspective. Case management continues to work on discharge planning. Anticipate discharge early next week, hopefully on 04/03/17 to [facility], per family. Plan - 04/01/17. Clinically, Devendra appears improved today with improved mentation after reduction in gabapentin per Dr. Pittman yesterday. He does admit to increased pain to his lower extremities with the reduction in the gabapentin but appreciates the improved mentation. Continue to encourage participation in therapies and pain control per Dr. Pittman. Significant concern and anxiety regarding pain during transfer to [place]. Patient requested to receive Gabapentin 200mg x 1 dose immediately prior to discharge as he received great pain control with the dose and would appreciate the increased somnolence during the ambulance ride. He also requested to be able to receive another dose of gabapentin or pain medication immediately prior to arrival in [place] to maintain his pain medication schedule knowing that he will not be able to receive medications immediately on his arrival to [facility]. Will discuss patient wishes with Dr. Pittman. Patient was seen by Dr. Mcintosh on 03/31/17 and felt the patient was hypovolemic. NS 75cc was stated with improvement in hyponatremia (Na 128). Continue NS 75cc/hr and monitor closely for signs of fluid overload. At the recommendation of Dr. Mcintosh, his spironolactone, Lasix and KCl were discontinued and his metolazone remains on hold given his hypovolemia. Fluid restriction was also lifted. Consider restarting diuretics, possibly at lower dose at time of admission. Will continue metoprolol 25mg BID as well as coumadin per Dr. Mcintosh. Will recheck CBC and BMP in AM to continue to monitor blood counts, electrolytes and renal function. Case management continues to work on discharge planning. Anticipate discharge early next week, hopefully on 04/03/17 to [facility] in [place], per family. 04/02/17 Sodium improved to 131. Continue IVF and continue to hold diuretics, appreciate Dr. Mcintosh's expertise. Plans for transfer to [facility] on 04/03 fell through. CM looking at other options. UC from 04/01 shows early growth -- cath specimen. Records received from [facility] in [place] (faculty criminal justice: Dr. Cesar): EF >55 %; longstanding hx of a-fib 04/04/17 Start doxycycline 100 mg twice a day for infected sebaceous cyst. reports he has many allergies. Doxycycline is not listed. Use a warm moist compress to the area throughout the day. Will recheck the area tomorrow. Monitor for fever or worsening symptoms. Doesn' t appear appropriate for I&D at this time. 04/06/17 Continue doxycycline 100 mg twice a day for infected sebaceous cyst. Added probiotic for gastrointestinal health. Erythromycin ointment twice a day for conjunctivitis. Warm moist compresses BID. Will change midline to a PICC line. Dr. Mcintosh had recommended when diuretics are resumed, Lasix be initiated first. Resume Lasix 40 twice a day. Monitor labs. He will likely need Zaroxolyn as well, as this has been the case in the past. Pain control per Dr. Pittman.
[2017-04-06] MEDS: POLYETHYL GLYCOL 3350 17gm PACKET PO PRN (22:04)
[2017-04-07] MEDS: Oxycodone *IR* 5 MG TABLET PO PRN ×3 (04:12→21:30)
[2017-04-07] MEDS: ALBUTEROL 2.5mg/0.5ml (0.5%) NEB AEROSOL SCH ×4 (05:20→21:09)
[2017-04-07] MEDS: NALOXEGOL 12.5 MG TABLET PO SCH (06:39)
[2017-04-07] MEDS: LEVOTHYROXINE 50 MCG TABLET PO SCH (06:39)
[2017-04-07] MEDS: PANTOPRAZOLE 40 MG TABLET PO SCH (06:39)
[2017-04-07] MEDS: FERROUS SULFATE 324 MG TABLET PO SCH (09:27)
[2017-04-07] MEDS: ASCORBIC ACID 500 MG TABLET PO SCH (09:28)
[2017-04-07] MEDS: LACTOBACILLUS (15B cfu) CAPSULE PO SCH ×2 (09:28→18:05)
[2017-04-07] MEDS: PredniSONE 20 MG TABLET PO SCH (09:28)
[2017-04-07] MEDS: SENNA + DOCUSATE TABLET PO SCH ×2 (09:29→21:29)
[2017-04-07] MEDS: GABAPENTIN 100 MG CAPSULE PO SCH ×3 (09:29→21:31)
[2017-04-07] MEDS: COENZYME Q-10 200mg TABLET PO SCH (09:29)
[2017-04-07] MEDS: ESCITALOPRAM 20 MG TABLET PO SCH (09:29)
[2017-04-07] MEDS: FUROSEMIDE 40 MG TABLET PO SCH ×2 (09:30→14:51)
[2017-04-07] MEDS: GUAIFENESIN 400MG TABLET PO SCH ×4 (09:30→21:31)
[2017-04-07] MEDS: SIMETHICONE 80 MG CHEWABLE TABLET PO SCH ×4 (09:30→21:30)
[2017-04-07] MEDS: NYSTATIN 500,000 units/5 ml ORAL LIQUID PO SCH ×4 (09:30→21:29)
[2017-04-07] MEDS: DOXYCYCLINE 100 MG in NS 250ml 250 ML IV SCH ×2 (09:34→21:28)
[2017-04-07] MEDS: ERYTHROMYCIN 0.5% EYE OINTMENT 1 GRAM TUBE EACH EYE SCH ×2 (09:35→21:28)
[2017-04-07] MEDS: SPIRONOLACTONE 25 MG TABLET PO SCH (12:41)
[2017-04-07] MEDS: WARFARIN 2.5 MG TABLET PO SCH (12:41)
[2017-04-07] MEDS: ACETAMINOPHEN 325 MG TABLET PO PRN (12:42)
[2017-04-07] MEDS: CALCIUM CARBONATE Chewable 500mg TABLET PO SCH (12:42)
--- NOTE | 2017-04-07 13:22 | Progress Note ---
- Date 04/07/17 Subjective: Barbara is quite concerned b/c Devendra had a fever this am of 99.1 (baseline is 97.9). She is worried about infection and increasing edema. His cough is more productive and today he brought up yellow colored sputum. Devendra also reports that he feels more short of breath, and asked to use the CPAP after our brief conversation. His pain has also increased, and Dr. Pittman bumped up the gabapentin dose again. He is eating more frequently. Last BM was 04/05/17, and he states that he typically has a BM everyday. Objective Vital signs: Temperature 99.1 F 04/07/17 08:00 Pulse Rate 104 H 04/07/17 08:00 Respiratory Rate 19 04/07/17 10:01 Blood Pressure 148/78 H 04/07/17 08:00 Pulse Oximetry 98 04/07/17 10:01 Height/Weight/BMI: Height 1.7 m Weight 135 kg Body Mass Index 45.0 - Constitutional Present: mild distress, morbidly obese - Routine HEENT Exam Head: Present: cushingoid faces Eye: Present: PERRL, scleral injection (mild). Absent: conjunctival icterus ENT: Present: oropharynx clear Comments: applied coconut oil to orbits and eyelids for moisture - Routine Respiratory Exam Present: crackles (b/l bases, greater on right) - Routine Cardiovascular Exam Present: irregularly irregular - Routine Abdominal Exam Present: normoactive bowel sounds, non tender Comments: increased edema to lower abd. - Routine Extremities Exam Present: edema (2+ to upper thighs and also noted increased edema to both lower ext/feet) - Routine Skin Exam Present: wounds (numerous wounds which are chronic.), rash (back is erythematous ; no dressing on it today) Comments: sebaceous cyst to anterior left neck measures approx 2.5 wide x1.5 cm tall. It is mildly tender. It is mobile and firm. There is no surrounding erythema. - Routine Neurological Exam Present: alert, oriented X3 - Routine Psychiatric Exam Present: cooperative Results - Labs CBC & Chem 7: 04/07/17 04:08 04/07/17 04:08 Microbiology Results: Microbiology 04/01/17 19:43 Urine, Cath Sigala Urine Culture - Final Mixed Bacterial Daryl 03/30/17 02:46 Urine, Cath Sigala, Chronic Urine Culture - Final Mixed Bacterial Daryl Present -No further testing will be performed Assessment and Plan (1) Myopathy Current visit: Yes Status: Acute (2) Squamous cell skin cancer Current visit: Yes Status: Chronic (3) Acute on chronic respiratory failure with hypoxemia Current visit: Yes Status: Acute Assessment and Plan: Impression Infected sebaceous cyst proximal to left side of neck-(diagnosed 04/04/17) Syncope, recurrent and chronic: workup negative Conjunctivitis-not POA (diagnosed 04/06/17) Acute encephalopathy - improved Generalized Myopathy Skin lesions consistent with basal cell and squamous cell carcinoma Recent influenza A with continued hypoxia. Hyponatremia, chronic, baseline 128-130 Intertriginous dermatitis Chronic atrial fibrillation Congestive heart failure. 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 Hypothyroidism - resumed levothyroxine on 03/18/17 history of asthma history of seizures Plan CXR done yesterday without obvious evidence for pulmonary edema. However, pt has increased pitting edema and has subjective dyspnea. Will increase Lasix to 60 mg BID and restart spironolactone 25 mg daily. K also slightly low at 3.5 and notes preference to keep K at 4 or higher. Will replace K today and assess response in am after starting K-sparing diuretic. We may need to resume Zaroxolyn in near future. Continue doxycycline BID for sebaceous cyst. Consider surgical evaluation. Continue e-mycin ointment for conjunctivitis. Constipation - increase Movantik to 50 mg. Dulcolax suppository per RN. Will discuss with attending. DVT Prophylaxis: Coumadin GI Prophylaxis: Protonix Resuscitation Status: Do Not Resuscitate - Physician Narrative Physician: Cindy Ruvalcaba MD Narrative: Date: 04/07/17 Time: 1420 I have independently evaluated and examined this patient. I reviewed the chart, the patient's history, and the ASSOCIATE DIRECTOR OF NURSING/PA's documented findings as above. We discussed and formulated the assessment and plan as above with additions as below: Mr. Hutchinson was seen with his at bedside. He was on CPAP when I arrived but took it off to talk with me. He described feeling like it's hard to breathe when he doesn't have CPAP on although his oxygen levels are good on room air. He denied cough or sputum production. The work of breathing has increased over the past month since he had influenza and has been less active. His reports increased edema in his ankles and weight is up 3-5 kg over the past 5 days. NAD, alert, much more talkative than it previously seen Respirations nonlabored, decreased airflow throughout but breath sounds are clear Pitting edema in the lower back, dependent thighs, and at the ankles-edema at the ankles is clearly worse than when I last saw him and edema in the thighs may be slightly worse. Re-dose Zaroxolyn 5 mg 1 today for edema. Yesterday's chest x-ray reviewed by myself-no indication of pulmonary edema although there is a left pleural effusion. I'm not sure that diuresing is going to significantly alter the work of breathing the patient describes and wonders this is not a reflection of deconditioning and generalized muscle weakness more than volume related. Encouraged to work with therapy as much as possible. Continue CPAP when necessary. Dx: HFpEF, chronic afib, SONYA, edema, myopathy Hospital Course Summary Disclaimer: The visit summary below is not to be considered part of the above Progress Note. Hospital Course: Plan Agree with admission to inpatient rehabilitation unit under the care of Dr. Pittman for significant myopathy and weakness secondary to recent acute hospitalization and illness. Patient does have a very complex past medical history and current chronic comorbidities. Appreciate hospitalist consultation for assistance in medical management. Consultation placed with the wound care team for evaluation and recommendations of ongoing wound care. Left leg squamous cell carcinoma-stable. Patient scheduled to follow with radiation oncology once medically improved. does report that she would like to use her homemade "save" which contains eggplant an essential oil. Consult to pharmacy for ongoing management of INR and Coumadin dosing. Patient has known positive urine culture for VRE. Will forego any treatment. Given chronic colonization of indwelling Sigala catheter Patient does wish to be a full code and this orders written. Appreciate medical consultation, the hospitalist services will continue to follow patient medically manage his existing comorbidities during his stay on IRU unit. At time of discharge his medical care will return to his primary care provider in Dr. Doug Ang in [place] 03/18/17 Give additional Lasix 40 mg PO now; start daily weights. Sounds like he has a hx of flash pulmonary edema; reports he was previously on Lasix TID then was decreased to BID -- monitor fluid status closely as we may need to provide extra diuresis periodically versus adding another dose in the afternoon. Will recheck BMP in am. Change dosing of gabapentin to 300 mg TID and 300 mg at 0200, per 's request. Increase simethicone to home dosing schedule. Resume levothyroxine 50 mcg -- he took this in [place]. Consider wound consultation. Suspect mild leukocytosis is chronic given prednisone use though will recheck CBC in am to document stability. INR is therapeutic. 03/20/17 Na decreased to 125 but exam suggests fluid positive state. Will increase Lasix to 60 mg BID, starting this afternoon. Will resume spironolactone. Wait on resuming KDur since K was still elevated at 4.8 but we may need to resume K soon. Renal status stable Rn to call wound team regarding excoriation under left breast. INR is therapeutic; high risk medication in use. Encourage PT/OT/activity as siva. Discussed with Dr. Pittman and with Dr. Ruvalcaba. 2/2 Given increased edema and increase in weight. We will give an additional 40 milligrams of Lasix both this evening and tomorrow evening. Recheck BMP tomorrow morning to follow electrolytes and renal function. Patient may need additional testing supplementation. Discussed importance of bowel motivation. Continue on current regimen Oral Dulcolax, Colace, senna plus, MiraLAX, milk of magnesia. Did also add Dulcolax suppository and encouraged nursing to try a brown cow. Recommend using suppository. By this evening if no bowel movements. This will also help with fluid retention and edema. Otherwise doing well. 2/3 His wt is up 6kg since yesterday which is likely an error. Clinically this does not appear to be the case. He is difficult to weigh. Will reweigh in the am. Will cancel the extra dose of Lasix as ordered this evening given his drop in sodium. His urine is dark, breathing is ok and swelling is less. Likely doesn't need further diuresis. Sodium down to 126 from 132 yesterday. Will continue to follow. Case discussed with Dr. Thomas. 03/27 Sodium is again down to 124. Nursing staff does report patient drinks "numerous pitchers of water a day". This is likely attributing to hyponatremia. Weight yesterday at baseline admission weight. Continue to watch daily weights Will decrease second Lasix dose to 40mg at 1400 and continue with 60 mg in the am 03/28 Recurrent syncope -- check EKG, trop x3, CT head, CXR Acute encephalopathy -- poss r/t hyponatremia; Na down to 123 today ? intervascularly dry Hold Lasix this afternoon. Hold metolazone. Give NS 500 mL IVF today. Cont wound care -- asks about dsg options other than Mepilex EKG personally reviewed: A-fib with controlled rate; No ST elevation/depression ; RBBB; +Q wave lat leads CXR personally reviewed: no pulmonary congestion/infiltrate Trop #1 = 0.[address] pending. I spoke with Dr. Ang from [place]. During his 90+ day SNF stay he showed only minimal improvement in functional status. He tends to run about 128-130 on sodium level, with elevated bicarb as well. He has had several syncopal episodes during his SNF stay. Diuretics at time of dc were: Spironolactone 25 mg BID, metolazone 5 mg daily, and Lasix [address] Ang noted anasarca while at [facility]. LTC placement was recommended but pt/ declined. 03/29 Encephalopathy is better today. Na still low but increased to 125 after fluid bolus yesterday/holding diuretics. He had Lasix this morning but will hold the rest of his diuretics today. Recheck BMP/mg in am to re-eval electrolytes/renal function and possibly resume diuretics. I did reach Dr. Ang yesterday, who reported that Devendra was on Spironolactone 25 mg BID, metolazone 5 mg daily, and Lasix 80 mg BID while at [facility] in [place]. Oxycodone and gabapentin doses reduced today per Dr. Pittman. Movantik started for opioid induced constipation IRU team meeting planned this afternoon to discuss discharge plans. 03/30 Multifactorial encephalopathy -- Very drowsy with delayed processing and/or verbal responses. Gabapentin dose further adjusted per Dr. Pittman. Could be r/t hyponatremia; difficult to assess intravascular fluid status. Weight is down from 135 kg yesterday to 129.5 this am, and diuretics have been on hold for 2 days. ABG ordered, but pt was not hypercarbic or acidotic. Another consideration is depression, and we may want to consider psych consultation. Case was discussed with Dr. Mcintosh. Spironolactone can cause hyponatremia and he recommends decreasing dose to 25 mg. He also recommends restarting Lasix but continue to hold metolazone, start tele d/t syncope and hx a-fib, tighten fluid restriction from 1500 to 7248-5632 ml/day, check orthostatics if able, and obtain an echo. He will see Devendra either tonight or tomorrow am. In addition, records have been requested from Dr. Cesar's office at [facility] in [place]. He has been afebrile; UC pending. Sigala in place. Pt may have plateaued from a functional perspective and CM is looking into other placement options. Plan - 03/31/17. Mr. Miller multifactorial encephalopathy appears improved today as compared to yesterday. Family expressed concern about increased somnolence this morning after the patient received his gabapentin. Dr. Pittman was contacted and his gabapentin dose was decreased to 100mg TID. Will continue to monitor. Patient was seen by Dr. Mcintosh this morning for further evaluation of his diastolic CHF. He discussed his recommendations with Dr. Moran and stated that he felt the patient was hypovolemic. Will start NS 75cc/hr for hydration. Monitor fluid status closely in addition to urinary output for signs of fluid overload. Given his hyponatremia, will stop his spironolactone, Lasix and KCl and continue to hold his metolazone. Fluid restriction was discontinued. Will continue metoprolol 25mg BID as well as coumadin per Dr. Mcintosh. Will recheck has labs in the AM to monitor blood counts, electrolytes and renal function. Slight increase in leukocytosis at 14.5 with 7% bands. Patient remains afebrile. Prior UA obtained revealed + nitrite with 30-50 WBC and 1+ bacteria. Culture revealed mixed daryl. Will recheck CXR and UA in AM and continue to monitor closely for signs of deterioration or infection. Concern that the patient may have plateaued from a functional perspective. Case management continues to work on discharge planning. Anticipate discharge early next week, hopefully on 04/03/17 to [facility], per family. Plan - 04/01/17. Clinically, Devendra appears improved today with improved mentation after reduction in gabapentin per Dr. Pittman yesterday. He does admit to increased pain to his lower extremities with the reduction in the gabapentin but appreciates the improved mentation. Continue to encourage participation in therapies and pain control per Dr. Pittman. Significant concern and anxiety regarding pain during transfer to [place]. Patient requested to receive Gabapentin 200mg x 1 dose immediately prior to discharge as he received great pain control with the dose and would appreciate the increased somnolence during the ambulance ride. He also requested to be able to receive another dose of gabapentin or pain medication immediately prior to arrival in [place] to maintain his pain medication schedule knowing that he will not be able to receive medications immediately on his arrival to [facility]. Will discuss patient wishes with Dr. Pittman. Patient was seen by Dr. Mcintosh on 03/31/17 and felt the patient was hypovolemic. NS 75cc was stated with improvement in hyponatremia (Na 128). Continue NS 75cc/hr and monitor closely for signs of fluid overload. At the recommendation of Dr. Mcintosh, his spironolactone, Lasix and KCl were discontinued and his metolazone remains on hold given his hypovolemia. Fluid restriction was also lifted. Consider restarting diuretics, possibly at lower dose at time of admission. Will continue metoprolol 25mg BID as well as coumadin per Dr. Mcintosh. Will recheck CBC and BMP in AM to continue to monitor blood counts, electrolytes and renal function. Case management continues to work on discharge planning. Anticipate discharge early next week, hopefully on 04/03/17 to [facility] in [place], per family. 04/02/17 Sodium improved to 131. Continue IVF and continue to hold diuretics, appreciate Dr. Mcintosh's expertise. Plans for transfer to [facility] on 04/03 fell through. CM looking at other options. UC from 04/01 shows early growth -- cath specimen. Records received from [facility] in [place] (superintendent measurement: Dr. Cesar): EF >55 %; longstanding hx of a-fib 04/04/17 Start doxycycline 100 mg twice a day for infected sebaceous cyst. reports he has many allergies. Doxycycline is not listed. Use a warm moist compress to the area throughout the day. Will recheck the area tomorrow. Monitor for fever or worsening symptoms. Doesn' t appear appropriate for I&D at this time. 04/07/17 CXR done yesterday without obvious evidence for pulmonary edema. However, pt has increased pitting edema and has subjective dyspnea. Will increase Lasix to 60 mg BID and restart spironolactone 25 mg daily. K also slightly low at 3.5 and notes preference to keep K at 4 or higher. Will replace K today and assess response in am after starting K-sparing diuretic. We may need to resume Zaroxolyn in near future. Continue doxycycline BID for sebaceous cyst. Consider surgical evaluation. Continue e-mycin ointment for conjunctivitis. Constipation - increase Movantik to 50 mg. Dulcolax suppository per RN.
[2017-04-07] MEDS: POLYETHYL GLYCOL 3350 17gm PACKET PO PRN (21:29)
[2017-04-08] MEDS: Oxycodone *IR* 5 MG TABLET PO PRN ×5 (01:15→20:55)
[2017-04-08] MEDS: GABAPENTIN 100 MG CAPSULE PO SCH ×4 (01:15→20:53)
[2017-04-08] MEDS: ACETAMINOPHEN 325 MG TABLET PO PRN ×2 (02:48→13:19)
[2017-04-08] MEDS: SALINE FLUSH 10ml SYRINGE IV PRN ×2 (04:00→04:06)
[2017-04-08] MEDS: ALBUTEROL 2.5mg/0.5ml (0.5%) NEB AEROSOL SCH ×4 (05:30→20:26)
[2017-04-08] MEDS: FUROSEMIDE 40 MG TABLET PO SCH ×2 (06:31→13:19)
[2017-04-08] MEDS: LEVOTHYROXINE 50 MCG TABLET PO SCH (06:31)
[2017-04-08] MEDS: PANTOPRAZOLE 40 MG TABLET PO SCH (06:34)
[2017-04-08] MEDS: NALOXEGOL 12.5 MG TABLET PO SCH (06:34)
--- NOTE | 2017-04-08 08:42 | Pharmacy Consult ---
Pharmacy Consult-Warfarin - Laboratory Information 03/16/17 03/17/17 03/18/17 05:38 04:50 04:47 INR 2.18 H 2.04 H 2.00 H 03/19/17 03/20/17 03/21/17 04:07 04:19 04:18 INR 2.05 H 2.09 H 1.81 H 03/22/17 03/23/17 03/24/17 04:55 04:45 05:34 INR 1.88 H 2.09 H 2.35 H 03/25/17 03/27/17 03/29/17 03:53 04:09 04:43 INR 2.59 H 2.62 H 2.62 H 04/01/17 04/04/17 04/08/17 04:52 04:34 04:19 INR 2.17 H 2.20 H 1.60 H - Consult Information COUMADIN CONSULT (Recurring): Warfarin Dosing Protocol: 76 y.o. Male with history of A. Fib. and chronic anticoagulation with warfarin. Home dose reported as Warfarin 2mg daily, except on Fridays takes 1mg. goal INR range= 2.0 to 3.0 Date INR dose 03/15 - 2 mg 03/16 2.18 2 mg 03/17 2.04 2 mg 03/18 2.00 2.5 mg 03/19 2.05 2.5 mg 03/20 2.09 2.5 mg 03/21 1.81 3 mg 03/22 1.88 3 mg 03/23 2.09 3 mg 03/24 2.35 3 mg 03/25 2.59 2.5 mg daily 03/27 2.62 2.5 mg 03/28 ---- 2.5 mg 03/29 2.62 2.5 mg 04/01 2.17 2.5 mg 04/04 2.20 2.5 mg 04/08 1.60 will give 3 mg The Pharmacy will continue to monitor and adjust the warfarin dose. Thank you. Linette Barlow, PharmD
[2017-04-08] MEDS: FERROUS SULFATE 324 MG TABLET PO SCH (10:08)
[2017-04-08] MEDS: LACTOBACILLUS (15B cfu) CAPSULE PO SCH ×2 (10:08→18:21)
[2017-04-08] MEDS: PredniSONE 20 MG TABLET PO SCH (10:09)
[2017-04-08] MEDS: ASCORBIC ACID 500 MG TABLET PO SCH (10:09)
[2017-04-08] MEDS: ESCITALOPRAM 20 MG TABLET PO SCH (10:10)
[2017-04-08] MEDS: GUAIFENESIN 400MG TABLET PO SCH ×4 (10:10→20:54)
[2017-04-08] MEDS: NYSTATIN 500,000 units/5 ml ORAL LIQUID PO SCH ×4 (10:10→20:54)
[2017-04-08] MEDS: COENZYME Q-10 200mg TABLET PO SCH (10:10)
[2017-04-08] MEDS: SPIRONOLACTONE 25 MG TABLET PO SCH (10:11)
[2017-04-08] MEDS: SIMETHICONE 80 MG CHEWABLE TABLET PO SCH ×4 (10:11→20:55)
[2017-04-08] MEDS: SENNA + DOCUSATE TABLET PO SCH ×2 (10:11→20:54)
[2017-04-08] MEDS: DOXYCYCLINE 100 MG in NS 250ml 250 ML IV SCH ×2 (10:12→20:49)
[2017-04-08] MEDS: ERYTHROMYCIN 0.5% EYE OINTMENT 1 GRAM TUBE EACH EYE SCH ×2 (10:13→13:18)
[2017-04-08] MEDS: WARFARIN 3 MG TABLET PO SCH (13:18)
[2017-04-08] MEDS: CALCIUM CARBONATE Chewable 500mg TABLET PO SCH (13:18)
--- NOTE | 2017-04-08 14:26 | Progress Note ---
- Date 04/08/17 Subjective: Mr. Hutchinson is seen today in follow up. His is at bedside- She is massaging his abdomen "trying to get things moving." They are concerned that pt is constipated. We discussed at length- is requesting GA medication be given. Nursing reports that pt. had dulcolax GA yesterday with copious BM documented. Pt. is frustrated that he "needs to get up", and wants to have BM first. He is frustrated that he requires the use of a sling for transfers- I d/w him and the need for both patient and staff to avoid injury. He does not want to discuss the use of bedside commode, as the "sling doesn't have a hole in it." Patient reports ongoing SOA and cough. reports that he has "put out a lot of fluid, but still is short of breath." He does have a coarse, productive cough- thick, yellow, white sputum. He does reports some relief with Bipap. His O2 sats are 98% on RA at rest per . During assessment, insists pt. leans forward for exam. She pushes him vigorously forward, instructs me to "only touch him with your stethoscope; no fingers due to his back." Pt. does assist using the trapeze. I discussed obtaining a chest x-ray since he remains SOA- argues that he "just had one done on Sunday when his PICC was put in." I have discussed this patient with nursing staff today. Patient's is inserting multiple substances into patient's eyes- saline spray also used in the nose, breast milk from their granddaughter, and coconut oil as well. Patient has refused antibiotic eye ointment, therefore it has been DC"d at his request. He is also drinking breast milk provided by the granddaughter. I have reviewed the chart for collateral information. Objective Vital signs: Temperature 98.1 F 04/08/17 08:00 Pulse Rate 68 04/08/17 08:00 Respiratory Rate 23 04/08/17 10:52 Blood Pressure 94/63 04/08/17 08:00 Pulse Oximetry 96 04/08/17 10:52 Height/Weight/BMI: Height 1.7 m Weight 135 kg Body Mass Index 45.0 - Constitutional Present: mild distress, morbidly obese Comments: Extensive skin changes- scattered skin cancer?- involves all visible skin. - Routine HEENT Exam Head: Present: normocephalic, atraumatic Eye: Present: EOMI, PERRL, conjunctivae pink (Generalized redness around eyes. ) ENT: Present: mucous membranes moist - Routine Respiratory Exam Present: dyspnea (Patient is a bit dyspneic, but is not in distress. Could be due to morbid obesity?), rhonchi (Primarily right lung field. Clears with coarse cough), distant breath sounds - Routine Cardiovascular Exam Present: RRR, S1, S2 - Routine Abdominal Exam Present: soft, non distended, non tender - Routine Extremities Exam Present: edema - Routine Back/Spine/Pelvis Exam Back/Spine: Absent: full ROM - Routine Musculoskeletal Exam Musculoskeletal: Absent: normal strength - Routine Skin Exam Present: warm, lesions, wounds. Absent: intact Comments: Extensive areas of skin breakdown. Multiple lesions. Bilateral LE wrapped in kerlex. - Routine Neurological Exam Present: alert, oriented X3, moving all extremities - Routine Psychiatric Exam Absent: good insight, good judgment Results - Labs CBC & Chem 7: 04/08/17 04:19 04/08/17 04:19 Microbiology Results: Microbiology 04/01/17 19:43 Urine, Cath Sigala Urine Culture - Final Mixed Bacterial Daryl 03/30/17 02:46 Urine, Cath Sigala, Chronic Urine Culture - Final Mixed Bacterial Daryl Present -No further testing will be performed - Imaging and Cardiology Chest x-ray Status: image reviewed by me Additional comments: CXR for PICC- some atelectasis bilateral bases. Assessment and Plan (1) Myopathy Current visit: Yes Status: Acute (2) Squamous cell skin cancer Current visit: Yes Status: Chronic (3) Acute on chronic respiratory failure with hypoxemia Current visit: Yes Status: Acute Assessment and Plan: Impression Infected sebaceous cyst proximal to left side of neck-(diagnosed 04/04/17) Syncope, recurrent and chronic: workup negative Conjunctivitis-not POA (diagnosed 04/06/17) Acute encephalopathy - improved Generalized Myopathy Skin lesions consistent with basal cell and squamous cell carcinoma Recent influenza A with continued hypoxia. Hyponatremia, chronic, baseline 128-130 Intertriginous dermatitis Chronic atrial fibrillation Congestive heart failure. 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 Hypothyroidism - resumed levothyroxine on 03/18/17 history of asthma history of seizures Plan 04/08/17 Some improvement subjectively in fluid status. Weight have not been monitored due to difficulty. Continue Lasix BID, increase KCL supplement. Continue Aldactone. Repeat labs in AM. Echo attempt was not very successful. He does have a productive cough- will assess sputum cx to better characterize. Continue doxycycline for now. Continue nebs, BIPAP, PRN O2. Add Acapella valve to mobilize secretions. Suspect a heavy degree of Obesity Hypoventilation syndrome. Labs, CXR in AM. Pt did have a large BM. D/W nurses to avoid GA medications unless indicated. and pt. have opted to treat conjunctivitis as detailed in HPI. Will DC e- mycin. continues to heavily direct care. D/W nursing several times today. Chart reviewed. DVT Prophylaxis: Coumadin GI Prophylaxis: Protonix Resuscitation Status: Do Not Resuscitate - Physician Narrative Narrative: Date: 04/08/17 Time: 1418 Hospital Course Summary Disclaimer: The visit summary below is not to be considered part of the above Progress Note. Hospital Course: Plan Agree with admission to inpatient rehabilitation unit under the care of Dr. Pittman for significant myopathy and weakness secondary to recent acute hospitalization and illness. Patient does have a very complex past medical history and current chronic comorbidities. Appreciate hospitalist consultation for assistance in medical management. Consultation placed with the wound care team for evaluation and recommendations of ongoing wound care. Left leg squamous cell carcinoma-stable. Patient scheduled to follow with radiation oncology once medically improved. does report that she would like to use her homemade "save" which contains eggplant an essential oil. Consult to pharmacy for ongoing management of INR and Coumadin dosing. Patient has known positive urine culture for VRE. Will forego any treatment. Given chronic colonization of indwelling Sigala catheter Patient does wish to be a full code and this orders written. Appreciate medical consultation, the hospitalist services will continue to follow patient medically manage his existing comorbidities during his stay on IRU unit. At time of discharge his medical care will return to his primary care provider in Dr. Doug Ang in [place] 03/18/17 Give additional Lasix 40 mg PO now; start daily weights. Sounds like he has a hx of flash pulmonary edema; reports he was previously on Lasix TID then was decreased to BID -- monitor fluid status closely as we may need to provide extra diuresis periodically versus adding another dose in the afternoon. Will recheck BMP in am. Change dosing of gabapentin to 300 mg TID and 300 mg at 0200, per 's request. Increase simethicone to home dosing schedule. Resume levothyroxine 50 mcg -- he took this in [place]. Consider wound consultation. Suspect mild leukocytosis is chronic given prednisone use though will recheck CBC in am to document stability. INR is therapeutic. 03/20/17 Na decreased to 125 but exam suggests fluid positive state. Will increase Lasix to 60 mg BID, starting this afternoon. Will resume spironolactone. Wait on resuming KDur since K was still elevated at 4.8 but we may need to resume K soon. Renal status stable Rn to call wound team regarding excoriation under left breast. INR is therapeutic; high risk medication in use. Encourage PT/OT/activity as siva. Discussed with Dr. Pittman and with Dr. Ruvalcaba. 2/2 Given increased edema and increase in weight. We will give an additional 40 milligrams of Lasix both this evening and tomorrow evening. Recheck BMP tomorrow morning to follow electrolytes and renal function. Patient may need additional testing supplementation. Discussed importance of bowel motivation. Continue on current regimen Oral Dulcolax, Colace, senna plus, MiraLAX, milk of magnesia. Did also add Dulcolax suppository and encouraged nursing to try a brown cow. Recommend using suppository. By this evening if no bowel movements. This will also help with fluid retention and edema. Otherwise doing well. 2/3 His wt is up 6kg since yesterday which is likely an error. Clinically this does not appear to be the case. He is difficult to weigh. Will reweigh in the am. Will cancel the extra dose of Lasix as ordered this evening given his drop in sodium. His urine is dark, breathing is ok and swelling is less. Likely doesn't need further diuresis. Sodium down to 126 from 132 yesterday. Will continue to follow. Case discussed with Dr. Thomas. 03/27 Sodium is again down to 124. Nursing staff does report patient drinks "numerous pitchers of water a day". This is likely attributing to hyponatremia. Weight yesterday at baseline admission weight. Continue to watch daily weights Will decrease second Lasix dose to 40mg at 1400 and continue with 60 mg in the am 2 Recurrent syncope -- check EKG, trop x3, CT head, CXR Acute encephalopathy -- poss r/t hyponatremia; Na down to 123 today ? intervascularly dry Hold Lasix this afternoon. Hold metolazone. Give NS 500 mL IVF today. Cont wound care -- asks about dsg options other than Mepilex EKG personally reviewed: A-fib with controlled rate; No ST elevation/depression ; RBBB; +Q wave lat leads CXR personally reviewed: no pulmonary congestion/infiltrate Trop #1 = 0.[address] pending. I spoke with Dr. Ang from [place]. During his 90+ day SNF stay he showed only minimal improvement in functional status. He tends to run about 128-130 on sodium level, with elevated bicarb as well. He has had several syncopal episodes during his SNF stay. Diuretics at time of dc were: Spironolactone 25 mg BID, metolazone 5 mg daily, and Lasix [address] Ang noted anasarca while at [facility]. LTC placement was recommended but pt/ declined. 03/29 Encephalopathy is better today. Na still low but increased to 125 after fluid bolus yesterday/holding diuretics. He had Lasix this morning but will hold the rest of his diuretics today. Recheck BMP/mg in am to re-eval electrolytes/renal function and possibly resume diuretics. I did reach Dr. Ang yesterday, who reported that Devendra was on Spironolactone 25 mg BID, metolazone 5 mg daily, and Lasix 80 mg BID while at SNF in [place]. Oxycodone and gabapentin doses reduced today per Dr. Pittman. Movantik started for opioid induced constipation IRU team meeting planned this afternoon to discuss discharge plans. 03/30 Multifactorial encephalopathy -- Very drowsy with delayed processing and/or verbal responses. Gabapentin dose further adjusted per Dr. Pittman. Could be r/t hyponatremia; difficult to assess intravascular fluid status. Weight is down from 135 kg yesterday to 129.5 this am, and diuretics have been on hold for 2 days. ABG ordered, but pt was not hypercarbic or acidotic. Another consideration is depression, and we may want to consider psych consultation. Case was discussed with Dr. Mcintosh. Spironolactone can cause hyponatremia and he recommends decreasing dose to 25 mg. He also recommends restarting Lasix but continue to hold metolazone, start tele d/t syncope and hx a-fib, tighten fluid restriction from 1500 to 7871-2462 ml/day, check orthostatics if able, and obtain an echo. He will see Devendra either tonight or tomorrow am. In addition, records have been requested from Dr. Cesar's office at [facility] in [place]. He has been afebrile; UC pending. Sigala in place. Pt may have plateaued from a functional perspective and CM is looking into other placement options. Plan - 03/31/17. Mr. Miller multifactorial encephalopathy appears improved today as compared to yesterday. Family expressed concern about increased somnolence this morning after the patient received his gabapentin. Dr. Pittman was contacted and his gabapentin dose was decreased to 100mg TID. Will continue to monitor. Patient was seen by Dr. Mcintosh this morning for further evaluation of his diastolic CHF. He discussed his recommendations with Dr. Moran and stated that he felt the patient was hypovolemic. Will start NS 75cc/hr for hydration. Monitor fluid status closely in addition to urinary output for signs of fluid overload. Given his hyponatremia, will stop his spironolactone, Lasix and KCl and continue to hold his metolazone. Fluid restriction was discontinued. Will continue metoprolol 25mg BID as well as coumadin per Dr. Mcintosh. Will recheck has labs in the AM to monitor blood counts, electrolytes and renal function. Slight increase in leukocytosis at 14.5 with 7% bands. Patient remains afebrile. Prior UA obtained revealed + nitrite with 30-50 WBC and 1+ bacteria. Culture revealed mixed daryl. Will recheck CXR and UA in AM and continue to monitor closely for signs of deterioration or infection. Concern that the patient may have plateaued from a functional perspective. Case management continues to work on discharge planning. Anticipate discharge early next week, hopefully on 04/03/17 to [facility], per family. Plan - 04/01/17. Clinically, Devendra appears improved today with improved mentation after reduction in gabapentin per Dr. Pittman yesterday. He does admit to increased pain to his lower extremities with the reduction in the gabapentin but appreciates the improved mentation. Continue to encourage participation in therapies and pain control per Dr. Pittman. Significant concern and anxiety regarding pain during transfer to [place]. Patient requested to receive Gabapentin 200mg x 1 dose immediately prior to discharge as he received great pain control with the dose and would appreciate the increased somnolence during the ambulance ride. He also requested to be able to receive another dose of gabapentin or pain medication immediately prior to arrival in [place] to maintain his pain medication schedule knowing that he will not be able to receive medications immediately on his arrival to [facility]. Will discuss patient wishes with Dr. Pittman. Patient was seen by Dr. Mcintosh on 03/31/17 and felt the patient was hypovolemic. NS 75cc was stated with improvement in hyponatremia (Na 128). Continue NS 75cc/hr and monitor closely for signs of fluid overload. At the recommendation of Dr. Mcintosh, his spironolactone, Lasix and KCl were discontinued and his metolazone remains on hold given his hypovolemia. Fluid restriction was also lifted. Consider restarting diuretics, possibly at lower dose at time of admission. Will continue metoprolol 25mg BID as well as coumadin per Dr. Mcintosh. Will recheck CBC and BMP in AM to continue to monitor blood counts, electrolytes and renal function. Case management continues to work on discharge planning. Anticipate discharge early next week, hopefully on 04/03/17 to [facility] in [place], per family. 04/02/17 Sodium improved to 131. Continue IVF and continue to hold diuretics, appreciate Dr. Mcintosh's expertise. Plans for transfer to [facility] on 04/03 fell through. CM looking at other options. UC from 04/01 shows early growth -- cath specimen. Records received from [facility] in [place] (engineer and geologist: Dr. Cesar): EF >55 %; longstanding hx of a-fib 04/04/17 Start doxycycline 100 mg twice a day for infected sebaceous cyst. reports he has many allergies. Doxycycline is not listed. Use a warm moist compress to the area throughout the day. Will recheck the area tomorrow. Monitor for fever or worsening symptoms. Doesn' t appear appropriate for I&D at this time. 04/07/17 CXR done yesterday without obvious evidence for pulmonary edema. However, pt has increased pitting edema and has subjective dyspnea. Will increase Lasix to 60 mg BID and restart spironolactone 25 mg daily. K also slightly low at 3.5 and notes preference to keep K at 4 or higher. Will replace K today and assess response in am after starting K-sparing diuretic. We may need to resume Zaroxolyn in near future. Continue doxycycline BID for sebaceous cyst. Consider surgical evaluation. Continue e-mycin ointment for conjunctivitis. Constipation - increase Movantik to 50 mg. Dulcolax suppository per RN. Plan 04/08/17 Some improvement subjectively in fluid status. Weight have not been monitored due to difficulty. Continue Lasix BID, increase KCL supplement. Continue Aldactone. Repeat labs in AM. Echo attempt was not very successful. He does have a productive cough- will assess sputum cx to better characterize. Continue doxycycline for now. Continue nebs, BIPAP, PRN O2. Add Acapella valve to mobilize secretions. Suspect a heavy degree of Obesity Hypoventilation syndrome. Labs, CXR in AM. Pt did have a large BM. D/W nurses to avoid GA medications unless indicated. and pt. have opted to treat conjunctivitis as detailed in HPI. Will DC e- mycin. continues to heavily direct care. D/W nursing several times today. Chart reviewed.
[2017-04-08] MEDS: POLYETHYL GLYCOL 3350 17gm PACKET PO PRN (21:15)
[2017-04-09] MEDS: SALINE FLUSH 10ml SYRINGE IV PRN ×2 (00:12→22:05)
[2017-04-09] MEDS: GABAPENTIN 100 MG CAPSULE PO SCH ×4 (02:17→22:11)
[2017-04-09] MEDS: Oxycodone *IR* 5 MG TABLET PO PRN ×5 (02:17→22:29)
[2017-04-09] MEDS: ALBUTEROL 2.5mg/0.5ml (0.5%) NEB AEROSOL SCH ×4 (04:08→20:18)
[2017-04-09] MEDS: NALOXEGOL 12.5 MG TABLET PO SCH (05:52)
[2017-04-09] MEDS: LEVOTHYROXINE 50 MCG TABLET PO SCH (05:56)
[2017-04-09] MEDS: PANTOPRAZOLE 40 MG TABLET PO SCH (05:57)
--- NOTE | 2017-04-09 07:30 | XRay Report ---
EXAM: XR chest 1V LOCATION OF DICTATION: [facility] HISTORY: Cough COMPARISON: April 06, 2017 FINDINGS: The heart size is mildly enlarged. The mediastinal configuration is within normal limits. There are no consolidating opacities or pleural effusions. There is mild basilar atelectasis. There is no pneumothorax. The osseous structures are within normal limits for the patient's age. IMPRESSION: 1. Mild cardiomegaly without evidence for overt CHF. 2. Limited depth of inspiration with bibasilar atelectasis suggested. .
[2017-04-09] MEDS: LACTOBACILLUS (15B cfu) CAPSULE PO SCH ×2 (08:17→17:58)
[2017-04-09] MEDS: PredniSONE 20 MG TABLET PO SCH (08:18)
[2017-04-09] MEDS: FUROSEMIDE 40 MG TABLET PO SCH ×2 (08:19→14:14)
[2017-04-09] MEDS: COENZYME Q-10 200mg TABLET PO SCH (08:19)
[2017-04-09] MEDS: ASCORBIC ACID 500 MG TABLET PO SCH (08:19)
[2017-04-09] MEDS: GUAIFENESIN 400MG TABLET PO SCH ×5 (08:19→22:12)
[2017-04-09] MEDS: SENNA + DOCUSATE TABLET PO SCH ×2 (08:20→22:13)
[2017-04-09] MEDS: ESCITALOPRAM 20 MG TABLET PO SCH (08:20)
[2017-04-09] MEDS: SPIRONOLACTONE 25 MG TABLET PO SCH (08:20)
[2017-04-09] MEDS: SIMETHICONE 80 MG CHEWABLE TABLET PO SCH ×5 (08:20→22:14)
[2017-04-09] MEDS: DOXYCYCLINE 100 MG in NS 250ml 250 ML IV SCH ×2 (08:20→22:02)
[2017-04-09] MEDS: FERROUS SULFATE 324 MG TABLET PO SCH (08:29)
[2017-04-09] MEDS: NYSTATIN 500,000 units/5 ml ORAL LIQUID PO SCH ×4 (08:29→22:13)
[2017-04-09] MEDS: MAGNESIUM OXIDE 400 MG TABLET PO SCH (08:49)
[2017-04-09] MEDS: ACETAMINOPHEN 325 MG TABLET PO PRN (10:22)
[2017-04-09] MEDS: MAGNESIUM SULFATE 1gm PREMIX 1 GM/100 ML BAG IV SCH ×2 (10:25→11:47)
--- NOTE | 2017-04-09 10:57 | IRU Progress Note ---
- Subjective/Serverity of Illness Date: 04/09/17 Devendra was interviewed and examined in his room on inpatient rehabilitation. He states that his pain is better controlled at the present time. We had increased his gabapentin last week. He is able to sleep reasonably well at night he states. He continues to use his BiPAP all night every night. He continues to report a cough with sputum. However his lungs sound reasonably clear today. I did review the chest x-ray obtained early this morning. No infiltrate is identified at this time. Have reviewed other providers notes as well. Unfortunately he is not progressing with therapy. Placement is in progress. Exam Vital Signs: Temperature 97.9 F 04/09/17 08:00 Pulse Rate 93 04/09/17 08:00 Respiratory Rate 28 H 04/09/17 08:00 Blood Pressure 161/118 H 04/09/17 08:00 Pulse Oximetry 98 04/09/17 08:00 Height/Weight/BMI: Height 1.7 m Weight 132 kg Body Mass Index 45.0 - Constitutional Present: no acute distress, well nourished, well developed, morbidly obese - Routine HEENT Exam Head: Present: normocephalic Eye: Present: EOMI ENT: Present: mucous membranes moist, oropharynx clear - Routine Neck Exam Present: supple - Routine Respiratory Exam Present: decreased breath sounds, CTA bilaterally. Absent: wheezes - Routine Cardiovascular Exam Present: RRR, S1, S2. Absent: murmur - Routine Abdominal Exam Present: soft, normoactive bowel sounds, non distended. Absent: tenderness, organomegaly - Routine Extremities Exam Present: no edema (I currently do not detect any edema. His has noted edema in the thighs in the past but I do not see that at present.), normal capillary refill - Routine Back/Spine/Pelvis Exam Back/Spine: Absent: full ROM - Routine Skin Exam Present: dry, warm, wounds - Routine Neurological Exam Present: alert, oriented X3, CN II-XII intact - Routine Psychiatric Exam Present: normal affect, depressed. Absent: cooperative, good insight, good judgment Results IRU - Labs Labs: Reviewed today's chest x-ray failing to show any evidence of infiltrate. Reviewed labs as well. Weight is down 3 kg since starting diuretics again. Reviewed sputum Gram stain demonstrating gram-positive cocci in chains. Culture pending. He remains on intravenous doxycycline. IRU A/P (1) Myopathy Current visit: Yes Status: Acute Patient continues to have severe debility and myopathic changes. No progressing with therapy. Placement in progress. (2) Influenza A Current visit: Yes Status: Resolved (3) Rheumatoid arthritis Qualifiers: Rheumatoid arthritis location: multiple sites Rheumatoid factor presence: unspecified presence Qualified Code(s): M06.9 - Rheumatoid arthritis, unspecified Current visit: Yes Status: Chronic Pain control appears to be improved. Gabapentin was increased last week. (4) Atrial fibrillation, chronic Current visit: Yes Status: Chronic (5) (HFpEF) heart failure with preserved ejection fraction Current visit: Yes Status: Chronic Weight is down 3 kg. (6) CKD (chronic kidney disease) stage 3, GFR 30-59 ml/min Current visit: Yes Status: Chronic (7) Squamous cell skin cancer Current visit: Yes Status: Chronic (8) Chronic indwelling Sigala catheter Current visit: Yes Status: Chronic (9) Acute on chronic respiratory failure with hypoxemia Current visit: Yes Status: Acute (10) Acute bronchospasm Current visit: Yes Status: Resolved (11) SONYA (obstructive sleep apnea) Current visit: Yes Status: Chronic (12) Slow transit constipation Current visit: Yes Status: Acute (13) Hyponatremia Current visit: Yes Status: Chronic (14) Neuropathic pain of both legs Current visit: Yes Status: Chronic (15) Syncope Qualifiers: Syncope type: unspecified Qualified Code(s): R55 - Syncope and collapse Current visit: Yes Status: Resolved DVT Prophylaxis: Coumadin Resuscitation Status: Do Not Resuscitate - Course Hospital Course: Pedro Pittman MD: 03/16/17 12:11 Multiple medical problems as outlined. Severe weakness noted. Just getting started with therapies. 03/19/17 12:04 Patient is cooperative and participates with therapy although progress is quite slow. Continues to have expiratory wheezes. He is afebrile. Numerous skin lesions identified. would like to have lidocaine used for dressing removal. I will discuss with wound care. 03/20/17 10:44 Multiple skin lesions will require continued meticulous nursing management. Medically he seems stable. Lungs are clear. INR is therapeutic. He is participating with therapy. 03/22/17 11:35 Slow progression with therapy. Multiple skin lesions noted and being monitored by nursing including wound care nurse. INR subtherapeutic. 03/23/17 11:46 Slow progress with therapy. INR therapeutic. Complains of constipation. 03/26/17 14:53 Progress continues to be slow. Sodium down to 126. Weight was up to 133 and now down to 130 kg. Easy fatigability and continued evidence of critical illness/disuse myopathy. 03/27/17 10:30 Sodium down to 124. He is overdrinking fluids and he was advised not to do that. Now on a fluid restriction. Complains of pain in the right leg heel pad area but also throughout the leg. We will modify the gabapentin dose. 03/29/17 10:09 Patient remains very complex. Diuretics held. Sodium still low 125. Syncope yesterday. Somewhat slow to respond. We will reduce gabapentin. 03/30/17 11:22 Patient is more alert today. Exam is otherwise negative for changes. Weight is up. Sodium 125. Continues to be plateaued with therapy. 04/02/17 10:58 Patient continues to plateau with therapy. He does seem to be more awake and alert with less gabapentin. Sodium improved to 131 which may also help his mentation. Plans are to transfer to [facility] in [place] tomorrow. 04/03/17 11:19 Continues to have very poor exercise tolerance. Likely he is depressed. Continues to work with therapy. Placement in progress. 04/05/17 10:52 He is non-participatory with physical therapy for the most part. He is now making progress with occupational therapy. Had a difficult night with cough. He is on doxycycline for an infected sebaceous cyst. Placement in progress. 04/06/17 11:19 The above statement should read that he is "not making progress with occupational therapy." Continues to be in a plateau pattern with regard to therapy. Continues to have a cough. He is on doxycycline. Placement is in progress. 04/09/17 10:58 Patient is medically stable. He is not making progress with therapy. Placement in progress. - Interventions to Obtain Goals PT Treatment Plan: Balance/Proprioception, Functional Activities, Gait Training , Patient/Family Education, Therapeutic Exercise OT Treatment Plan: ADL (Basic Care), Balance Training, Pt./Family Education, Ther. Exercise for ADL
[2017-04-09] MEDS: CALCIUM CARBONATE Chewable 500mg TABLET PO SCH (12:44)
[2017-04-09] MEDS: WARFARIN 3 MG TABLET PO SCH (12:44)
[2017-04-09] MEDS: BISACODYL 10 MG SUPPOSITORY RECTALLY PRN (14:14)
--- NOTE | 2017-04-09 16:39 | Wound Care Progress Note ---
Wound Center Progress Note: Pt was seen today while PT was in with pt. PT helped use the time for leg exercises, Old drsgs removed, new applied, bilateral knees appeared better. Also assessed skin of back and bottom intact, red in color . Bottom is blanchable but, dark in color.
[2017-04-10] MEDS: ACETAMINOPHEN 325 MG TABLET PO PRN ×2 (00:23→09:44)
[2017-04-10] MEDS: GABAPENTIN 100 MG CAPSULE PO SCH ×4 (02:44→20:44)
[2017-04-10] MEDS: Oxycodone *IR* 5 MG TABLET PO PRN ×5 (02:44→20:43)
[2017-04-10] MEDS: HYDROCODONE/CHLORPHENIRAMINE ER ORAL LIQ 5ml PO PRN (04:17)
[2017-04-10] MEDS: ALBUTEROL 2.5mg/3ml (0.083%) NEB AEROSOL PRN ×2 (05:10→08:13)
[2017-04-10] MEDS: ALBUTEROL 2.5mg/0.5ml (0.5%) NEB AEROSOL SCH ×2 (05:16→11:18)
[2017-04-10] MEDS: LEVOTHYROXINE 50 MCG TABLET PO SCH (06:49)
[2017-04-10] MEDS: NALOXEGOL 12.5 MG TABLET PO SCH (06:50)
[2017-04-10] MEDS: PANTOPRAZOLE 40 MG TABLET PO SCH (06:50)
[2017-04-10] MEDS: FUROSEMIDE 40 MG TABLET PO SCH ×2 (06:51→17:41)
[2017-04-10] MEDS: DOXYCYCLINE 100 MG in NS 250ml 250 ML IV SCH ×2 (08:42→20:46)
[2017-04-10] MEDS: LACTOBACILLUS (15B cfu) CAPSULE PO SCH ×2 (08:51→17:40)
[2017-04-10] MEDS: FERROUS SULFATE 324 MG TABLET PO SCH (08:51)
[2017-04-10] MEDS: NYSTATIN 500,000 units/5 ml ORAL LIQUID PO SCH ×4 (08:51→20:44)
[2017-04-10] MEDS: SENNA + DOCUSATE TABLET PO SCH ×2 (08:51→20:44)
[2017-04-10] MEDS: ASCORBIC ACID 500 MG TABLET PO SCH (08:52)
[2017-04-10] MEDS: COENZYME Q-10 200mg TABLET PO SCH (08:52)
[2017-04-10] MEDS: PredniSONE 20 MG TABLET PO SCH (08:52)
[2017-04-10] MEDS: SPIRONOLACTONE 25 MG TABLET PO SCH (08:52)
[2017-04-10] MEDS: SIMETHICONE 80 MG CHEWABLE TABLET PO SCH ×4 (08:52→20:44)
[2017-04-10] MEDS: ESCITALOPRAM 20 MG TABLET PO SCH (08:52)
[2017-04-10] MEDS: GUAIFENESIN 400MG TABLET PO SCH ×4 (08:55→20:43)
[2017-04-10] MEDS: MAGNESIUM OXIDE 400 MG TABLET PO SCH (08:55)
[2017-04-10] MEDS: CALCIUM CARBONATE Chewable 500mg TABLET PO SCH (14:00)
[2017-04-10] MEDS: WARFARIN 3 MG TABLET PO SCH (14:01)
--- NOTE | 2017-04-10 15:06 | IRU Progress Note ---
- Subjective/Serverity of Illness Date: 04/10/17 Devendra was evaluated in his room on inpatient rehabilitation with his present. He states that he awakened in the middle the night unable to breathe. He became panicked. He was using his BiPAP at that time. Etiology of this is not clear. His wonders if it is due to fluid excess. He does remain on diuretics and managed by the hospitalist service in this regard. In addition, he states that his pain is variable. Sometimes it is fairly well controlled at other times it is quite intense. Pain is not well localized and is present in the lower extremities as well as "all over." He continues to have a cough. Sputum culture was obtained demonstrating a light growth of staph aureus, uncertain whether MRSA or not. Chest radiograph obtained yesterday was unremarkable for any acute infiltrate. Patient states that he is having some tachycardia with use of the albuterol aerosol treatment. We will change to Xopenex. Brief therapy update: Cotreatment is occurring with PT and OT. Initially patient was cooperative with therapy but as the session wore on he became more upset" hateful". Continues to require total assistance for transfers. Patient is plateaued and not making progress. 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 Despite efforts of therapy, he is not making progress. 2. Acute on chronic diastolic heart failure with preserved ejection fraction: Patient remains on diuretics with management per hospitalist service. 3. Acute on chronic hypoxemic respiratory failure with requirement for oxygen supplementation: Continues to use BiPAP at night but is not on supplemental oxygen during the daytime at present. 4. Recent influenza A infection: Resolved at present. 5. Chronic kidney disease stage III: Creatinine is 1.0. 6. Hyponatremia, multifactorial: His sodium is slightly dominant 132. However is quite variable and related to diuretic use and water intake. 7. Chronic indwelling Sigala catheter secondary to chronic urinary urgency, frequency and incontinence with colonization but without active infection (no fever and no other symptoms): Recent culture showed mixed daryl. No evidence of active infection in terms of fever etc. 8. Chronic leg wounds/ulcerations: Followed by wound team. 9. Atrial fibrillation: Most recent INR was a bit subtherapeutic at 1.60. Pharmacy following and dosing. 10. Multiple skin lesions including squamous cell carcinoma of left thomas, multiple apparent basal cell lesions: Patient followed by wound care team as well as rehabilitation nursing. No significant changes identified. Exam Vital Signs: Temperature 97.6 F 04/10/17 08:49 Pulse Rate 74 04/10/17 08:49 Respiratory Rate 20 04/10/17 11:21 Blood Pressure 125/63 04/10/17 08:49 Pulse Oximetry 98 04/10/17 11:21 Height/Weight/BMI: Height 1.7 m Weight 132 kg Body Mass Index 45.0 - Constitutional Present: mild distress, well nourished, well developed, morbidly obese - Routine HEENT Exam Head: Present: normocephalic Eye: Present: EOMI ENT: Present: mucous membranes moist Comments: Numerous skin lesions again identified on the head and neck region consistent with basal cell or other malignancies. - Routine Neck Exam Present: supple - Routine Respiratory Exam Present: decreased breath sounds, CTA bilaterally. Absent: dyspnea, respiratory distress, rhonchi, wheezes - Routine Cardiovascular Exam Present: S1, S2, irregularly irregular. Absent: murmur - Routine Abdominal Exam Present: soft, normoactive bowel sounds, non distended. Absent: tenderness - Routine Extremities Exam Absent: cyanosis, clubbing Comments: Presence of edema difficult to determine. Certainly he does not have edema in the ankles. - Routine Back/Spine/Pelvis Exam Back/Spine: Absent: full ROM - Routine Skin Exam Present: dry, warm, lesions, wounds - Routine Neurological Exam Present: alert, oriented X3, CN II-XII intact, motor deficit (generalized motor weakness particularly of the proximal musculature identified.) - Routine Psychiatric Exam Present: normal affect, depressed. Absent: good insight, good judgment Results IRU - Labs Labs: I have reviewed other provider's notes as well as labs and other chart data. IRU A/P (1) Myopathy Current visit: Yes Status: Acute Patient continues to display significant myopathic symptoms and is not progressing with therapy. (2) Influenza A Current visit: Yes Status: Resolved (3) Rheumatoid arthritis Qualifiers: Rheumatoid arthritis location: multiple sites Rheumatoid factor presence: unspecified presence Qualified Code(s): M06.9 - Rheumatoid arthritis, unspecified Current visit: Yes Status: Chronic His pain is likely multifactorial. Overall his pain appears to be adequately controlled although clearly has episodes of worsened discomfort. (4) Atrial fibrillation, chronic Current visit: Yes Status: Chronic (5) (HFpEF) heart failure with preserved ejection fraction Current visit: Yes Status: Chronic Per hospitalist's service. Weight is stable. (6) CKD (chronic kidney disease) stage 3, GFR 30-59 ml/min Current visit: Yes Status: Chronic (7) Squamous cell skin cancer Current visit: Yes Status: Chronic (8) Chronic indwelling Sigala catheter Current visit: Yes Status: Chronic (9) Acute on chronic respiratory failure with hypoxemia Current visit: Yes Status: Acute (10) Acute bronchospasm Current visit: Yes Status: Resolved (11) SONYA (obstructive sleep apnea) Current visit: Yes Status: Chronic (12) Slow transit constipation Current visit: Yes Status: Acute (13) Hyponatremia Current visit: Yes Status: Chronic (14) Neuropathic pain of both legs Current visit: Yes Status: Chronic (15) Syncope Qualifiers: Syncope type: unspecified Qualified Code(s): R55 - Syncope and collapse Current visit: Yes Status: Resolved DVT Prophylaxis: Coumadin Resuscitation Status: Do Not Resuscitate - Course Hospital Course: Pedro Pittman MD: 03/16/17 12:11 Multiple medical problems as outlined. Severe weakness noted. Just getting started with therapies. 03/19/17 12:04 Patient is cooperative and participates with therapy although progress is quite slow. Continues to have expiratory wheezes. He is afebrile. Numerous skin lesions identified. would like to have lidocaine used for dressing removal. I will discuss with wound care. 03/20/17 10:44 Multiple skin lesions will require continued meticulous nursing management. Medically he seems stable. Lungs are clear. INR is therapeutic. He is participating with therapy. 03/22/17 11:35 Slow progression with therapy. Multiple skin lesions noted and being monitored by nursing including wound care nurse. INR subtherapeutic. 03/23/17 11:46 Slow progress with therapy. INR therapeutic. Complains of constipation. 03/26/17 14:53 Progress continues to be slow. Sodium down to 126. Weight was up to 133 and now down to 130 kg. Easy fatigability and continued evidence of critical illness/disuse myopathy. 03/27/17 10:30 Sodium down to 124. He is overdrinking fluids and he was advised not to do that. Now on a fluid restriction. Complains of pain in the right leg heel pad area but also throughout the leg. We will modify the gabapentin dose. 03/29/17 10:09 Patient remains very complex. Diuretics held. Sodium still low 125. Syncope yesterday. Somewhat slow to respond. We will reduce gabapentin. 03/30/17 11:22 Patient is more alert today. Exam is otherwise negative for changes. Weight is up. Sodium 125. Continues to be plateaued with therapy. 04/02/17 10:58 Patient continues to plateau with therapy. He does seem to be more awake and alert with less gabapentin. Sodium improved to 131 which may also help his mentation. Plans are to transfer to [facility] in [place] tomorrow. 04/03/17 11:19 Continues to have very poor exercise tolerance. Likely he is depressed. Continues to work with therapy. Placement in progress. 04/05/17 10:52 He is non-participatory with physical therapy for the most part. He is now making progress with occupational therapy. Had a difficult night with cough. He is on doxycycline for an infected sebaceous cyst. Placement in progress. 04/06/17 11:19 The above statement should read that he is "not making progress with occupational therapy." Continues to be in a plateau pattern with regard to therapy. Continues to have a cough. He is on doxycycline. Placement is in progress. 04/09/17 10:58 Patient is medically stable. He is not making progress with therapy. Placement in progress. 04/10/17 15:11 Patient continues to be medically stable. He is not progressing with therapy. Getting some tachycardia with albuterol so we will change to Xopenex. - Interventions to Obtain Goals PT Treatment Plan: Balance/Proprioception, Functional Activities, Gait Training , Patient/Family Education, Therapeutic Exercise OT Treatment Plan: ADL (Basic Care), Balance Training, Pt./Family Education, Ther. Exercise for ADL Goals Progress/Modifications: Unfortunately, Mr. Hutchinson is not made progress with therapy. He continues to be very weak. Medically he is stable however. His lungs sound clear. Despite this he does find benefit with use of inhaled bronchodilators and we will change to Xopenex in view of his reported tachycardia with albuterol. Continues to have a cough. Chest x-ray yesterday morning was unremarkable for infiltrate. Has multiple skin lesions requiring significant nursing attention and intervention. No new lesions are identified however.
[2017-04-10] MEDS: POLYETHYL GLYCOL 3350 17gm PACKET PO PRN (20:42)
[2017-04-10] MEDS: SALINE FLUSH 10ml SYRINGE IV PRN (20:47)
[2017-04-11] MEDS: HYDROCODONE/CHLORPHENIRAMINE ER ORAL LIQ 5ml PO PRN (00:46)
[2017-04-11] MEDS: Oxycodone *IR* 5 MG TABLET PO PRN ×5 (00:46→20:58)
[2017-04-11] MEDS: GABAPENTIN 100 MG CAPSULE PO SCH ×4 (02:19→21:00)
[2017-04-11] MEDS: SALINE FLUSH 10ml SYRINGE IV PRN ×3 (04:08→04:10)
[2017-04-11] MEDS: NALOXEGOL 12.5 MG TABLET PO SCH (07:34)
[2017-04-11] MEDS: PANTOPRAZOLE 40 MG TABLET PO SCH (07:34)
[2017-04-11] MEDS: LEVOTHYROXINE 50 MCG TABLET PO SCH (07:34)
--- NOTE | 2017-04-11 07:41 | Pharmacy Consult ---
Pharmacy Consult-Warfarin - Laboratory Information 04/01/17 04/04/17 04/08/17 04:52 04:34 04:19 INR 2.17 H 2.20 H 1.60 H 04/11/17 04:22 INR 1.46 H - Consult Information Warfarin Dosing Protocol: 76 y.o. Male with history of A. Fib. and chronic anticoagulation with warfarin. Home dose reported as Warfarin 2mg daily, except on Fridays takes 1mg. goal INR range= 2.0 to 3.0 Date INR dose 03/15 - 2 mg 03/16 2.18 2 mg 03/17 2.04 2 mg 03/18 2.00 2.5 mg 03/19 2.05 2.5 mg 03/20 2.09 2.5 mg 03/21 1.81 3 mg 03/22 1.88 3 mg 03/23 2.09 3 mg 03/24 2.35 3 mg 03/25 2.59 2.5 mg daily and INR's . , Courtney 03/29 2.62 2.5 mg daily and change INR's to Courtney, We 04/04 2.20 continue Warfarin 2.5 mg daily & INR's Courtney, We 04/08 1.60 change Warfarin to 3 mg daily and continue INR's Courtney, We 04/11 1,45 change Warfarin to 5 mg daily and continue INR's Courtney, We INR is subtherapeutic, will change the Warfarin to 5 mg p.o. daily. I am using day 5 of the Warfarin Dosing Protocol, which suggests that if the INR is between 1.4-1.7 to increase the current dose (3 mg) by 2 mg daily (5 mg). The Pharmacy will continue to monitor and adjust the warfarin dose. Thank you for the Warfarin Dosing Protocol, Baudilio Blackmon, Pharmacist.
[2017-04-11] MEDS: FUROSEMIDE 40 MG TABLET PO SCH ×2 (09:35→17:21)
[2017-04-11] MEDS: LACTOBACILLUS (15B cfu) CAPSULE PO SCH ×2 (09:36→17:23)
[2017-04-11] MEDS: PredniSONE 20 MG TABLET PO SCH (09:37)
[2017-04-11] MEDS: ASCORBIC ACID 500 MG TABLET PO SCH (09:39)
[2017-04-11] MEDS: SENNA + DOCUSATE TABLET PO SCH ×2 (09:39→20:59)
[2017-04-11] MEDS: COENZYME Q-10 200mg TABLET PO SCH (09:40)
[2017-04-11] MEDS: ESCITALOPRAM 20 MG TABLET PO SCH (09:40)
[2017-04-11] MEDS: FERROUS SULFATE 324 MG TABLET PO SCH (09:40)
[2017-04-11] MEDS: MAGNESIUM OXIDE 400 MG TABLET PO SCH (09:41)
[2017-04-11] MEDS: GUAIFENESIN 400MG TABLET PO SCH ×4 (09:41→21:00)
[2017-04-11] MEDS: NYSTATIN 500,000 units/5 ml ORAL LIQUID PO SCH ×4 (09:42→21:00)
[2017-04-11] MEDS: SPIRONOLACTONE 25 MG TABLET PO SCH (09:42)
[2017-04-11] MEDS: SIMETHICONE 80 MG CHEWABLE TABLET PO SCH ×4 (09:42→21:00)
[2017-04-11] MEDS: WARFARIN 5 MG TABLET PO SCH (12:35)
[2017-04-11] MEDS: CALCIUM CARBONATE Chewable 500mg TABLET PO SCH (12:36)
[2017-04-11] MEDS: ACETAMINOPHEN 325 MG TABLET PO PRN (13:51)
[2017-04-11] MEDS: BISACODYL 10 MG SUPPOSITORY RECTALLY PRN (21:01)
[2017-04-12] MEDS: ACETAMINOPHEN 325 MG TABLET PO PRN ×2 (00:19→12:16)
[2017-04-12] MEDS: Oxycodone *IR* 5 MG TABLET PO PRN ×5 (00:52→20:08)
[2017-04-12] MEDS: GABAPENTIN 100 MG CAPSULE PO SCH ×4 (01:46→20:08)
[2017-04-12] MEDS ORDERED: LIDOCAINE 2% JELLY (Urojet) 20ml MM ONE (03:52)
[2017-04-12] MEDS: PANTOPRAZOLE 40 MG TABLET PO SCH (05:55)
[2017-04-12] MEDS: LEVOTHYROXINE 50 MCG TABLET PO SCH (05:55)
[2017-04-12] MEDS: FUROSEMIDE 40 MG TABLET PO SCH ×3 (05:56→18:22)
[2017-04-12] MEDS: NALOXEGOL 12.5 MG TABLET PO SCH (05:56)
[2017-04-12] MEDS: NYSTATIN 500,000 units/5 ml ORAL LIQUID PO SCH ×4 (08:02→20:09)
[2017-04-12] MEDS: SPIRONOLACTONE 25 MG TABLET PO SCH (08:03)
[2017-04-12] MEDS: COENZYME Q-10 200mg TABLET PO SCH (08:03)
[2017-04-12] MEDS: ESCITALOPRAM 20 MG TABLET PO SCH (08:04)
[2017-04-12] MEDS: FERROUS SULFATE 324 MG TABLET PO SCH (08:04)
[2017-04-12] MEDS: SENNA + DOCUSATE TABLET PO SCH ×2 (08:04→20:07)
[2017-04-12] MEDS: ASCORBIC ACID 500 MG TABLET PO SCH (08:04)
[2017-04-12] MEDS: MAGNESIUM OXIDE 400 MG TABLET PO SCH (08:41)
[2017-04-12] MEDS: GUAIFENESIN 400MG TABLET PO SCH ×4 (08:42→20:09)
[2017-04-12] MEDS: LACTOBACILLUS (15B cfu) CAPSULE PO SCH ×2 (08:42→18:23)
[2017-04-12] MEDS: SIMETHICONE 80 MG CHEWABLE TABLET PO SCH ×4 (08:43→20:09)
[2017-04-12] MEDS: PredniSONE 20 MG TABLET PO SCH (08:43)
--- NOTE | 2017-04-12 11:25 | IRU Progress Note ---
- Subjective/Serverity of Illness Date: 04/12/17 Mr. Hutchinson was interviewed and examined in his room. He states that his cough is improved. Still producing some sputum but not much. MRSA was identified within the sputum. Has some chronic dyspnea and uses oxygen from time to time. Recent chest x-ray reviewed and is negative for acute infiltrate. He has completed a course of intravenous doxycycline. It appears as though his conjunctivitis has resolved. He states that he slept well last night and uses BiPAP all night. He denies any other new areas of pain etc. He continues to plateau with therapy. Attempts are made however to work with him. Discussed placement issues with the patient's . She reports that she is "stalling" in order to find a good location for him. She would like a place like IRU for the nurses are attentive. We discussed the fact that at this point he would qualify best for a long-term care facility and I urged her to accept the facility that has been offered and accepted the patient. He is medically stable at this time. Exam Vital Signs: Temperature 97.9 F 04/12/17 08:00 Pulse Rate 65 04/12/17 08:00 Respiratory Rate 23 04/12/17 09:11 Blood Pressure 114/66 04/12/17 08:00 Pulse Oximetry 99 04/12/17 09:11 Height/Weight/BMI: Height 1.7 m Weight 132 kg Body Mass Index 45.0 - Constitutional Present: no acute distress, well nourished, well developed, morbidly obese - Routine HEENT Exam Head: Present: normocephalic Eye: Present: EOMI ENT: Present: mucous membranes moist, oropharynx clear - Routine Respiratory Exam Present: CTA bilaterally. Absent: wheezes, crackles - Routine Cardiovascular Exam Present: S1, S2, irregularly irregular. Absent: murmur - Routine Abdominal Exam Present: soft, normoactive bowel sounds, non distended. Absent: tenderness - Routine Extremities Exam Present: no edema Comments: Remains on diuretics. His weight is stable. - Routine Skin Exam Present: dry, warm, lesions (multiple skin lesions as noted previously.), wounds - Routine Neurological Exam Present: alert (patient is very alert today and verbal. He entered into the discussion regarding placement.), oriented X3, CN II-XII intact - Routine Psychiatric Exam Present: normal affect, cooperative IRU A/P (1) Myopathy Current visit: Yes Status: Acute At the present time, acute rehabilitation is not appropriate for this patient as he has not been able to make progress. While he is cooperative, he remains very weak and really unable to progress with therapy. Long-term care is appropriate at this time. Discussed in detail with his . Questions were addressed. He is medically stable. (2) Influenza A Current visit: Yes Status: Resolved (3) Rheumatoid arthritis Qualifiers: Rheumatoid arthritis location: multiple sites Rheumatoid factor presence: unspecified presence Qualified Code(s): M06.9 - Rheumatoid arthritis, unspecified Current visit: Yes Status: Chronic (4) Atrial fibrillation, chronic Current visit: Yes Status: Chronic INR noted and is somewhat subtherapeutic. Pharmacy is addressing with increased dose of warfarin. (5) (HFpEF) heart failure with preserved ejection fraction Current visit: Yes Status: Chronic (6) CKD (chronic kidney disease) stage 3, GFR 30-59 ml/min Current visit: Yes Status: Chronic (7) Squamous cell skin cancer Current visit: Yes Status: Chronic (8) Chronic indwelling Sigala catheter Current visit: Yes Status: Chronic (9) Acute on chronic respiratory failure with hypoxemia Current visit: Yes Status: Acute Continues to require supplemental oxygen from time to time. However this is not worsening and he appears to be stable in this regard. (10) Acute bronchospasm Current visit: Yes Status: Resolved (11) SONYA (obstructive sleep apnea) Current visit: Yes Status: Chronic Continue to use his BiPAP all night. Sleeping better last night he states. (12) Slow transit constipation Current visit: Yes Status: Acute (13) Hyponatremia Current visit: Yes Status: Chronic (14) Neuropathic pain of both legs Current visit: Yes Status: Chronic (15) Syncope Qualifiers: Syncope type: unspecified Qualified Code(s): R55 - Syncope and collapse Current visit: Yes Status: Resolved DVT Prophylaxis: Coumadin Resuscitation Status: Do Not Resuscitate - Course Hospital Course: Pedro Pittman MD: 03/16/17 12:11 Multiple medical problems as outlined. Severe weakness noted. Just getting started with therapies. 03/19/17 12:04 Patient is cooperative and participates with therapy although progress is quite slow. Continues to have expiratory wheezes. He is afebrile. Numerous skin lesions identified. would like to have lidocaine used for dressing removal. I will discuss with wound care. 03/20/17 10:44 Multiple skin lesions will require continued meticulous nursing management. Medically he seems stable. Lungs are clear. INR is therapeutic. He is participating with therapy. 03/22/17 11:35 Slow progression with therapy. Multiple skin lesions noted and being monitored by nursing including wound care nurse. INR subtherapeutic. 03/23/17 11:46 Slow progress with therapy. INR therapeutic. Complains of constipation. 03/26/17 14:53 Progress continues to be slow. Sodium down to 126. Weight was up to 133 and now down to 130 kg. Easy fatigability and continued evidence of critical illness/disuse myopathy. 03/27/17 10:30 Sodium down to 124. He is overdrinking fluids and he was advised not to do that. Now on a fluid restriction. Complains of pain in the right leg heel pad area but also throughout the leg. We will modify the gabapentin dose. 03/29/17 10:09 Patient remains very complex. Diuretics held. Sodium still low 125. Syncope yesterday. Somewhat slow to respond. We will reduce gabapentin. 03/30/17 11:22 Patient is more alert today. Exam is otherwise negative for changes. Weight is up. Sodium 125. Continues to be plateaued with therapy. 04/02/17 10:58 Patient continues to plateau with therapy. He does seem to be more awake and alert with less gabapentin. Sodium improved to 131 which may also help his mentation. Plans are to transfer to [facility] in [place] tomorrow. 04/03/17 11:19 Continues to have very poor exercise tolerance. Likely he is depressed. Continues to work with therapy. Placement in progress. 04/05/17 10:52 He is non-participatory with physical therapy for the most part. He is now making progress with occupational therapy. Had a difficult night with cough. He is on doxycycline for an infected sebaceous cyst. Placement in progress. 04/06/17 11:19 The above statement should read that he is "not making progress with occupational therapy." Continues to be in a plateau pattern with regard to therapy. Continues to have a cough. He is on doxycycline. Placement is in progress. 04/09/17 10:58 Patient is medically stable. He is not making progress with therapy. Placement in progress. 04/10/17 15:11 Patient continues to be medically stable. He is not progressing with therapy. Getting some tachycardia with albuterol so we will change to Xopenex. 04/12/17 11:27 Patient is not progressing with therapy and is not appropriate for acute inpatient rehabilitation. He is medically stable. Placement efforts and progress. - Interventions to Obtain Goals PT Treatment Plan: Balance/Proprioception, Functional Activities, Gait Training , Patient/Family Education, Therapeutic Exercise OT Treatment Plan: ADL (Basic Care), Balance Training, Pt./Family Education, Ther. Exercise for ADL Goals Progress/Modifications: Spent significant time with patient and . Addressed questions. Does have MRSA in the sputum but in the absence of infiltrate, do not feel additional antibiotics are appropriate. His lungs remain clear. He is more awake and alert today. Pain management is an ongoing issue but appears to be reasonably well controlled at present. His INR is somewhat subtherapeutic and this is addressed by pharmacy. He is not appropriate for acute inpatient rehabilitation. He is too weak to be able to progress with therapy at this time and long-term care is the appropriate level for him. He is medically stable.
[2017-04-12] MEDS: CALCIUM CARBONATE Chewable 500mg TABLET PO SCH (12:16)
[2017-04-12] MEDS: WARFARIN 5 MG TABLET PO SCH (12:17)
--- NOTE | 2017-04-12 13:35 | IRU Team Meeting ---
IRU Team Meeting - Nursing Bladder Assistive Devices Utilized:: Catheter Bladder Management Level of Assist: Total Assistance Bladder Frequency of Accidents: No accidents Bowel Assistive Devices Utilized:: Medication, Bedpan Bowel Management Level of Assist: Total Assistance Bowel Frequency of Accidents: No accidents Vital Signs: Vital Signs - 24 hr 04/11/17 14:23 04/11/17 16:00 04/11/17 20:45 Temperature 99.1 F Pulse Rate 86 Respiratory Rate 20 22 20 Blood Pressure 118/69 Pulse Oximetry 98 98 04/12/17 00:00 04/12/17 02:26 04/12/17 02:27 Temperature 97.7 F Pulse Rate 80 77 76 Respiratory Rate 36 H Blood Pressure 120/51 106/68 107/69 Pulse Oximetry 98 04/12/17 08:00 04/12/17 09:11 Temperature 97.9 F Pulse Rate 65 Respiratory Rate 22 23 Blood Pressure 114/66 Pulse Oximetry 98 99 Current Medications: Acetaminophen (Tylenol) 650 mg PO Q6H PRN PRN Reason: Pain Last Admin: 04/12/17 12:16 Dose: 650 mg Artificial Tears (Tears Naturale) 1 drops EACH EYE Q4H PRN Ascorbic Acid (Vitamin C) 500 mg PO DAILY [facility] Last Admin: 04/12/17 08:04 Dose: 500 mg Bisacodyl (Dulcolax) 10 mg PO DAILY PRN PRN Reason: Constipation Bisacodyl (Dulcolax) 10 mg RECTALLY DAILY PRN PRN Reason: Constipation Last Admin: 04/11/17 21:01 Dose: 10 mg Calcium Carbonate (Tums) 500 mg PO NOON [facility] Last Admin: 04/12/17 12:16 Dose: 500 mg Chlorphenir/Hydrocodone Polistirex (Tussionex) 2.5 ml PO Q12H PRN PRN Reason: Cough Last Admin: 04/11/17 00:46 Dose: 2.5 ml Cholecalciferol (Vit. D-3) 1,000 unit PO DAILY [facility] Last Admin: 04/12/17 08:03 Dose: 1,000 unit Coenzyme Q10 (Co Q-10) 200 mg PO DAILY [facility] Last Admin: 04/12/17 08:03 Dose: 200 mg Escitalopram Oxalate (Lexapro) 20 mg PO DAILY [facility] Last Admin: 04/12/17 08:04 Dose: 20 mg Ferrous Sulfate (Feosol) 324 mg PO WB [facility] Last Admin: 04/12/17 08:04 Dose: 324 mg Furosemide (Lasix) 60 mg PO 0700,1700 [facility] Last Admin: 04/12/17 08:41 Dose: 60 mg Gabapentin (Neurontin) 200 mg PO 0200,0600,1500,2100 [facility] Last Admin: 04/12/17 05:57 Dose: 200 mg Guaifenesin (Mucinex) 400 mg PO QID [facility] Last Admin: 04/12/17 12:17 Dose: 400 mg Lactobacillus Acidophilus (Culturelle) 2 cap PO BIDWM [facility] Last Admin: 04/12/17 08:42 Dose: 2 cap Levalbuterol HCl (Xopenex 1.25mg/3ml) 1.25 mg AEROSOL RTTID [facility] Last Admin: 04/12/17 09:11 Dose: 1.25 mg Levothyroxine Sodium (Synthroid) 50 mcg PO ACB [facility] Last Admin: 04/12/17 05:55 Dose: 50 mcg Magnesium Hydroxide (Mom) 30 ml PO DAILY PRN PRN Reason: Constipation Last Admin: 03/23/17 16:21 Dose: 30 ml Magnesium Oxide (Magox) 800 mg PO DAILY [facility] Last Admin: 04/12/17 08:41 Dose: 800 mg Metolazone (Zaroxolyn) 5 mg PO [facility] Metoprolol Tartrate (Lopressor) 25 mg PO BIDWM [facility] Last Admin: 04/12/17 08:43 Dose: 25 mg Naloxegol (Movantik) 25 mg PO ACB [facility] Last Admin: 04/12/17 05:56 Dose: 25 mg Nystatin (Mycostatin) 5 ml PO QID [facility] Last Admin: 04/12/17 12:17 Dose: 5 ml Nystatin (Mycostatin) 1 applic TP TID [facility] Last Admin: 04/12/17 08:43 Dose: Not Given Oxycodone HCl (Roxicodone *Ir*) 5 mg PO Q4H PRN PRN Reason: Pain Last Admin: 04/12/17 10:30 Dose: 5 mg Pantoprazole Sodium (Protonix Tab) 40 mg PO ACB [facility] Last Admin: 04/12/17 05:55 Dose: 40 mg Polyethylene Glycol (Miralax) 17 gm PO DAILY PRN Last Admin: 04/10/17 20:42 Dose: 17 gm Potassium Chloride (K-Dur 20 Meq Tablet) 20 meq PO TIDWM [facility] Last Admin: 04/12/17 12:17 Dose: 20 meq Prednisone (Deltasone) 20 mg PO WB [facility] Last Admin: 04/12/17 08:43 Dose: 20 mg Senna/Docusate Sodium (Senna Plus Tablet) 2 tab PO BID [facility] Last Admin: 04/12/17 08:04 Dose: 2 tab Simethicone (Mylicon) 80 mg PO PCHS [facility] Last Admin: 04/12/17 12:17 Dose: 80 mg Sodium Chloride (Deep Sea Nasal Moisturizing [place]) 1 spray EA NOSTRIL PRN PRN PRN Reason: Congestion Sodium Chloride (Iv Flush) 10 ml IV PRN PRN PRN Reason: Flushing Last Admin: 04/11/17 04:10 Dose: 10 ml Spironolactone (Aldactone) 25 mg PO DAILY [facility] Last Admin: 04/12/17 08:03 Dose: 25 mg Warfarin Sodium (Coumadin Protocol) 0 MC NOTE [facility] Warfarin Sodium (Coumadin) 5 mg PO NOON [facility] Last Admin: 04/12/17 12:17 Dose: 5 mg Current Medical Issues: multiple wounds, disuse myopathy, atrial fib, SONYA Comments: I certify that I personally led the interdisciplinary team meeting and agree with comments, barriers and goals indicated. Team meeting was held in the patient's room with the patient and the following family members present: Patient's Michael. Mr. Hutchinson is cooperative. He slept well last night. He states that his cough is a bit better. MRSA was identified in the sputum although chest x-ray negative. Likely this is therefore a colonization. He just finished a course of intravenous doxycycline. Sodium remains stable at 132. INR slightly subtherapeutic. Pharmacy managing and monitoring. Appetite is good. - Dietary Patient remains on a cardiac diet with ground meats and mighty shakes 3 times daily with protein snacks. He is eating 100% of his meals. Increase protein intake encouraged for wound healing. - Physical Therapy Bed, Chair, Wheelchair Transfer Assist: Total Assistance, 2 or More Person Assist Ambulation Ability: Patient Unsafe/Unable Ambulation Distance: 0 Wheelchair Propulsion Ability: Total Assistance, 1 Person Assist Wheelchair Propulsion Distance: 0 Stair Climbing Ability: Patient Unsafe/Unable Car Transfer Ability: Patient Unsafe/Unable Comments: Participation is limited due to reports of fatigue. He has not been able to demonstrate functional gains. Due to the frailty of his scan, patient does not tolerate gait belt transfers further decreasing his safety with progressing in transfers. He requires rest breaks for 50-70% of the treatment times. - Occupational Therapy Eating Ability: Stand By Assist/Supervision Grooming Ability: Stand By Assist/Supervision Bathing Ability: Total Assistance, 2 or More Person Assist Upper Body Dressing Ability: Minimal Assistance Lower Body Dressing Ability: Total Assistance Tub Transfer Assist: Patient Unsafe/Unable Toileting Assist: Total Assistance Toilet Transfer Assist: Total Assistance, 2 or More Person Assist Comments: He continues to require full lift for all ADL transfers. He has plateaued with occupational therapy goals. - Goals Physical Therapy Goals: 03/22/17 Goals: 1.) Walk 5 feet with walker - not met, discontinue. 2.) Moderate assist with sit to stand transfer - not met. 3.) Proper hand placement with stand to sit transfer 100% of the time. - not met. Goals: 1.) Continue above. Occupational Therapy Goals: OT goals 03/22/17, 04/05/17, 04/12/17: 1.) Pt. to demonstrate transfer to C with moderate assist. - continue (total assist required). 2.) Pt. to perform lower body dressing with moderate assist. - continue (total assist required). 3.) Pt. to perform upper body dressing with set-up assist. - continue (min assist required) - Barriers to Discharge Barriers to Attaining Goals: Weakness (therapeutic exercises recommended and encouraged.), Endurance (he is encouraged to participate in activities for an increasing amount of time.), Other (participation: Encouragement for progress and posterior reinforcement given.) - Care Plan Anticipated Length of Stay (days): 0 Anticipated DC Destination: [facility]Facility I have led this team conference and agree with the plan. Interventions/Goals: Patient has not improved in his functional goals. He is medically stable and is more appropriate for long-term care.
--- NOTE | 2017-04-12 14:55 | Progress Note ---
- Date 04/12/17 Subjective: Devendra reports that he's feeling pretty good today. He denies feeling SOA but is on 3L of oxygen -- states that sometimes he feels SOA and she knows that his CO2 goes up, so she tried to help by placing him back on oxygen and/or increasing it yesterday. At one point yesterday he was 96% on room air. He continues to have a cough. The swelling in his feet has resolved, but he tends to retain fluid in the dependent areas of his thighs, lower back/flank, and arms. He is more alert. He is sleeping better. Objective Vital signs: Temperature 97.9 F 04/12/17 08:00 Pulse Rate 65 04/12/17 08:00 Respiratory Rate 23 04/12/17 09:11 Blood Pressure 114/66 04/12/17 08:00 Pulse Oximetry 99 04/12/17 09:11 Height/Weight/BMI: Height 1.7 m Weight 132 kg Body Mass Index 45.0 - Constitutional Present: no acute distress, well nourished, well developed, morbidly obese - Routine HEENT Exam Head: Present: normocephalic Eye: Present: PERRL. Absent: conjunctival icterus, scleral injection ENT: Present: mucous membranes dry Comments: cyst to left anterior neck stable. - Routine Respiratory Exam Present: decreased breath sounds (bases), CTA bilaterally - Routine Cardiovascular Exam Present: irregularly irregular - Routine Abdominal Exam Present: soft, normoactive bowel sounds, non tender - Routine Extremities Exam Present: edema (per Subjective), pulses intact - Routine Skin Exam Present: wounds (widespread lesions; legs wrapped with gauze) - Routine Neurological Exam Present: alert, oriented X3 - Routine Psychiatric Exam Present: normal affect, normal thought process, cooperative Results - Labs CBC & Chem 7: 04/10/17 04:39 04/10/17 04:39 Microbiology Results: Microbiology 04/08/17 22:00 Sputum, Expectorated Gram Stain - Final 04/08/17 22:00 Sputum, Expectorated Sputum Culture - Final Staphylococcus aureus, MRSA Gram Negative Bang Normal Respiratory Daryl 04/01/17 19:43 Urine, Cath Sigala Urine Culture - Final Mixed Bacterial Daryl 03/30/17 02:46 Urine, Cath Sigala, Chronic Urine Culture - Final Mixed Bacterial Daryl Present -No further testing will be performed Assessment and Plan (1) Myopathy Current visit: Yes Status: Acute (2) Squamous cell skin cancer Current visit: Yes Status: Chronic (3) Acute on chronic respiratory failure with hypoxemia Current visit: Yes Status: Acute Assessment and Plan: Impression Infected sebaceous cyst proximal to left side of neck-(diagnosed 04/04/17) Syncope, recurrent and chronic: workup negative Conjunctivitis-not POA (diagnosed 04/06/17) Acute encephalopathy - improved Generalized Myopathy Skin lesions consistent with basal cell and squamous cell carcinoma Recent influenza A with continued hypoxia. Hyponatremia, chronic, baseline 128-130 Intertriginous dermatitis Chronic atrial fibrillation Congestive heart failure. 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 Hypothyroidism - resumed levothyroxine on 03/18/17 history of asthma history of seizures Plan Repeat CBC, BMP/mg, and INR today to f/u on leukocytosis, hypokalemia, hyponatremia, and renal function since restarting diuretics. D/W pharmacy -- they will monitor INR more closely until it reaches therapeutic level. sputum cx + MRSA, GNR, normal daryl. Suspect colonization given lack of infiltrate on CXR. Furthermore, he just completed a 7-day course of doxy, and culture showed sensitivity to doxy. Medically stable at this time. CM working on discharge. DVT Prophylaxis: Coumadin Resuscitation Status: Do Not Resuscitate - Physician Narrative Narrative: Date: 04/12/17 Time: 1451 Hospital Course Summary Disclaimer: The visit summary below is not to be considered part of the above Progress Note. Hospital Course: Plan Agree with admission to inpatient rehabilitation unit under the care of Dr. Pittman for significant myopathy and weakness secondary to recent acute hospitalization and illness. Patient does have a very complex past medical history and current chronic comorbidities. Appreciate hospitalist consultation for assistance in medical management. Consultation placed with the wound care team for evaluation and recommendations of ongoing wound care. Left leg squamous cell carcinoma-stable. Patient scheduled to follow with radiation oncology once medically improved. does report that she would like to use her homemade "save" which contains eggplant an essential oil. Consult to pharmacy for ongoing management of INR and Coumadin dosing. Patient has known positive urine culture for VRE. Will forego any treatment. Given chronic colonization of indwelling Sigala catheter Patient does wish to be a full code and this orders written. Appreciate medical consultation, the hospitalist services will continue to follow patient medically manage his existing comorbidities during his stay on IRU unit. At time of discharge his medical care will return to his primary care provider in Dr. Doug Ang in [place] 03/18/17 Give additional Lasix 40 mg PO now; start daily weights. Sounds like he has a hx of flash pulmonary edema; reports he was previously on Lasix TID then was decreased to BID -- monitor fluid status closely as we may need to provide extra diuresis periodically versus adding another dose in the afternoon. Will recheck BMP in am. Change dosing of gabapentin to 300 mg TID and 300 mg at 0200, per 's request. Increase simethicone to home dosing schedule. Resume levothyroxine 50 mcg -- he took this in [place]. Consider wound consultation. Suspect mild leukocytosis is chronic given prednisone use though will recheck CBC in am to document stability. INR is therapeutic. 03/20/17 Na decreased to 125 but exam suggests fluid positive state. Will increase Lasix to 60 mg BID, starting this afternoon. Will resume spironolactone. Wait on resuming KDur since K was still elevated at 4.8 but we may need to resume K soon. Renal status stable Rn to call wound team regarding excoriation under left breast. INR is therapeutic; high risk medication in use. Encourage PT/OT/activity as siva. Discussed with Dr. Pittman and with Dr. Ruvalcaba. 2/2 Given increased edema and increase in weight. We will give an additional 40 milligrams of Lasix both this evening and tomorrow evening. Recheck BMP tomorrow morning to follow electrolytes and renal function. Patient may need additional testing supplementation. Discussed importance of bowel motivation. Continue on current regimen Oral Dulcolax, Colace, senna plus, MiraLAX, milk of magnesia. Did also add Dulcolax suppository and encouraged nursing to try a brown cow. Recommend using suppository. By this evening if no bowel movements. This will also help with fluid retention and edema. Otherwise doing well. 2/3 His wt is up 6kg since yesterday which is likely an error. Clinically this does not appear to be the case. He is difficult to weigh. Will reweigh in the am. Will cancel the extra dose of Lasix as ordered this evening given his drop in sodium. His urine is dark, breathing is ok and swelling is less. Likely doesn't need further diuresis. Sodium down to 126 from 132 yesterday. Will continue to follow. Case discussed with Dr. Thomas. 03/27 Sodium is again down to 124. Nursing staff does report patient drinks "numerous pitchers of water a day". This is likely attributing to hyponatremia. Weight yesterday at baseline admission weight. Continue to watch daily weights Will decrease second Lasix dose to 40mg at 1400 and continue with 60 mg in the am 03/28 Recurrent syncope -- check EKG, trop x3, CT head, CXR Acute encephalopathy -- poss r/t hyponatremia; Na down to 123 today ? intervascularly dry Hold Lasix this afternoon. Hold metolazone. Give NS 500 mL IVF today. Cont wound care -- asks about dsg options other than Mepilex EKG personally reviewed: A-fib with controlled rate; No ST elevation/depression ; RBBB; +Q wave lat leads CXR personally reviewed: no pulmonary congestion/infiltrate Trop #1 = 0.[address] pending. I spoke with Dr. Ang from [place]. During his 90+ day SNF stay he showed only minimal improvement in functional status. He tends to run about 128-130 on sodium level, with elevated bicarb as well. He has had several syncopal episodes during his SNF stay. Diuretics at time of dc were: Spironolactone 25 mg BID, metolazone 5 mg daily, and Lasix [address] Ang noted anasarca while at [facility]. LTC placement was recommended but pt/ declined. 03/29 Encephalopathy is better today. Na still low but increased to 125 after fluid bolus yesterday/holding diuretics. He had Lasix this morning but will hold the rest of his diuretics today. Recheck BMP/mg in am to re-eval electrolytes/renal function and possibly resume diuretics. I did reach Dr. Ang yesterday, who reported that Devendra was on Spironolactone 25 mg BID, metolazone 5 mg daily, and Lasix 80 mg BID while at [facility] in [place]. Oxycodone and gabapentin doses reduced today per Dr. Pittman. Movantik started for opioid induced constipation IRU team meeting planned this afternoon to discuss discharge plans. 03/30 Multifactorial encephalopathy -- Very drowsy with delayed processing and/or verbal responses. Gabapentin dose further adjusted per Dr. Pittman. Could be r/t hyponatremia; difficult to assess intravascular fluid status. Weight is down from 135 kg yesterday to 129.5 this am, and diuretics have been on hold for 2 days. ABG ordered, but pt was not hypercarbic or acidotic. Another consideration is depression, and we may want to consider psych consultation. Case was discussed with Dr. Mcintosh. Spironolactone can cause hyponatremia and he recommends decreasing dose to 25 mg. He also recommends restarting Lasix but continue to hold metolazone, start tele d/t syncope and hx a-fib, tighten fluid restriction from 1500 to 3271-6334 ml/day, check orthostatics if able, and obtain an echo. He will see Devendra either tonight or tomorrow am. In addition, records have been requested from Dr. Cesar's office at [facility] in [place]. He has been afebrile; UC pending. Sigala in place. Pt may have plateaued from a functional perspective and CM is looking into other placement options. Plan - 03/31/17. Mr. Miller multifactorial encephalopathy appears improved today as compared to yesterday. Family expressed concern about increased somnolence this morning after the patient received his gabapentin. Dr. Pittman was contacted and his gabapentin dose was decreased to 100mg TID. Will continue to monitor. Patient was seen by Dr. Mcintosh this morning for further evaluation of his diastolic CHF. He discussed his recommendations with Dr. Moran and stated that he felt the patient was hypovolemic. Will start NS 75cc/hr for hydration. Monitor fluid status closely in addition to urinary output for signs of fluid overload. Given his hyponatremia, will stop his spironolactone, Lasix and KCl and continue to hold his metolazone. Fluid restriction was discontinued. Will continue metoprolol 25mg BID as well as coumadin per Dr. Mcintosh. Will recheck has labs in the AM to monitor blood counts, electrolytes and renal function. Slight increase in leukocytosis at 14.5 with 7% bands. Patient remains afebrile. Prior UA obtained revealed + nitrite with 30-50 WBC and 1+ bacteria. Culture revealed mixed daryl. Will recheck CXR and UA in AM and continue to monitor closely for signs of deterioration or infection. Concern that the patient may have plateaued from a functional perspective. Case management continues to work on discharge planning. Anticipate discharge early next week, hopefully on 04/03/17 to [facility], per family. Plan - 04/01/17. Clinically, Devendra appears improved today with improved mentation after reduction in gabapentin per Dr. Pittman yesterday. He does admit to increased pain to his lower extremities with the reduction in the gabapentin but appreciates the improved mentation. Continue to encourage participation in therapies and pain control per Dr. Pittman. Significant concern and anxiety regarding pain during transfer to [place]. Patient requested to receive Gabapentin 200mg x 1 dose immediately prior to discharge as he received great pain control with the dose and would appreciate the increased somnolence during the ambulance ride. He also requested to be able to receive another dose of gabapentin or pain medication immediately prior to arrival in [place] to maintain his pain medication schedule knowing that he will not be able to receive medications immediately on his arrival to [facility]. Will discuss patient wishes with Dr. Pittman. Patient was seen by Dr. Mcintosh on 03/31/17 and felt the patient was hypovolemic. NS 75cc was stated with improvement in hyponatremia (Na 128). Continue NS 75cc/hr and monitor closely for signs of fluid overload. At the recommendation of Dr. Mcintosh, his spironolactone, Lasix and KCl were discontinued and his metolazone remains on hold given his hypovolemia. Fluid restriction was also lifted. Consider restarting diuretics, possibly at lower dose at time of admission. Will continue metoprolol 25mg BID as well as coumadin per Dr. Mcintosh. Will recheck CBC and BMP in AM to continue to monitor blood counts, electrolytes and renal function. Case management continues to work on discharge planning. Anticipate discharge early next week, hopefully on 04/03/17 to [facility], per family. 04/02/17 Sodium improved to 131. Continue IVF and continue to hold diuretics, appreciate Dr. Mcintosh's expertise. Plans for transfer to [facility] on 04/03 fell through. CM looking at other options. UC from 04/01 shows early growth -- cath specimen. Records received from [facility] in [place] (electric shipyard operator: Dr. Cesar): EF >55 %; longstanding hx of a-fib 04/04/17 Start doxycycline 100 mg twice a day for infected sebaceous cyst. reports he has many allergies. Doxycycline is not listed. Use a warm moist compress to the area throughout the day. Will recheck the area tomorrow. Monitor for fever or worsening symptoms. Doesn' t appear appropriate for I&D at this time. 04/06/17 Continue doxycycline 100 mg twice a day for infected sebaceous cyst. Added probiotic for gastrointestinal health. Erythromycin ointment twice a day for conjunctivitis. Warm moist compresses BID. Will change midline to a PICC line. Dr. Mcintosh had recommended when diuretics are resumed, Lasix be initiated first. Resume Lasix 40 twice a day. Monitor labs. He will likely need Zaroxolyn as well, as this has been the case in the past. Pain control per Dr. Pittman. 04/08/17 Some improvement subjectively in fluid status. Weight have not been monitored due to difficulty. Continue Lasix BID, increase KCL supplement. Continue Aldactone. Repeat labs in AM. Echo attempt was not very successful. He does have a productive cough- will assess sputum cx to better characterize. Continue doxycycline for now. Continue nebs, BIPAP, PRN O2. Add Acapella valve to mobilize secretions. Suspect a heavy degree of Obesity Hypoventilation syndrome. Labs, CXR in AM. Pt did have a large BM. D/W nurses to avoid MS medications unless indicated. and pt. have opted to treat conjunctivitis as detailed in HPI. Will DC e- mycin. continues to heavily direct care. 04/12/17 Repeat CBC, BMP/mg, and INR today to f/u on leukocytosis, hypokalemia, hyponatremia, and renal function since restarting diuretics. D/W pharmacy -- they will monitor INR more closely until it reaches therapeutic level. sputum cx + MRSA, GNR, normal daryl. Suspect colonization given lack of infiltrate on CXR. Furthermore, he just completed a 7-day course of doxy, and culture showed sensitivity to doxy. Medically stable at this time.
[2017-04-12] MEDS: POLYETHYL GLYCOL 3350 17gm PACKET PO PRN (20:07)
[2017-04-13] MEDS: Oxycodone *IR* 5 MG TABLET PO PRN ×5 (00:27→21:47)
[2017-04-13] MEDS: GABAPENTIN 100 MG CAPSULE PO SCH ×4 (02:21→21:45)
[2017-04-13] MEDS: SALINE FLUSH 10ml SYRINGE IV PRN ×3 (04:30→21:47)
[2017-04-13] MEDS: NALOXEGOL 12.5 MG TABLET PO SCH (06:40)
[2017-04-13] MEDS: PANTOPRAZOLE 40 MG TABLET PO SCH (06:41)
[2017-04-13] MEDS: LEVOTHYROXINE 50 MCG TABLET PO SCH (06:41)
[2017-04-13] MEDS: FUROSEMIDE 40 MG TABLET PO SCH ×2 (06:43→17:47)
--- NOTE | 2017-04-13 07:40 | Pharmacy Consult ---
Pharmacy Consult-Warfarin - Laboratory Information 03/16/17 03/17/17 03/18/17 05:38 04:50 04:47 INR 2.18 H 2.04 H 2.00 H 03/19/17 03/20/17 03/21/17 04:07 04:19 04:18 INR 2.05 H 2.09 H 1.81 H 03/22/17 03/23/17 03/24/17 04:55 04:45 05:34 INR 1.88 H 2.09 H 2.35 H 03/25/17 03/27/17 03/29/17 03:53 04:09 04:43 INR 2.59 H 2.62 H 2.62 H 04/01/17 04/04/17 04/08/17 04:52 04:34 04:19 INR 2.17 H 2.20 H 1.60 H 04/11/17 04/12/17 04/13/17 04:22 15:27 04:56 INR 1.46 H 1.69 H 1.76 H - Consult Information COUMADIN CONSULT (Recurring): Warfarin Dosing Protocol: 76 y.o. Male with history of A. Fib. and chronic anticoagulation with warfarin. Home dose reported as Warfarin 2mg daily, except on Fridays takes 1mg. goal INR range= 2.0 to 3.0 Date INR dose 03/15 - 2 mg 03/16 2.18 2 mg 03/17 2.04 2 mg 03/18 2.00 2.5 mg 03/19 2.05 2.5 mg 03/20 2.09 2.5 mg 03/21 1.81 3 mg 03/22 1.88 3 mg 03/23 2.09 3 mg 03/24 2.35 3 mg 03/25 2.59 2.5 mg 03/29 2.62 2.5 mg 04/04 2.20 04/08 1.60 3 mg 04/11 1.45 5 mg 04/12 1.69 5 mg 04/13 1.76 5 mg Will continue with Warfarin 5 mg daily. INR is heading back into the therapeutic range. Thank you Linette Barlow, PharmD
[2017-04-13] MEDS: FERROUS SULFATE 324 MG TABLET PO SCH (09:03)
[2017-04-13] MEDS: LACTOBACILLUS (15B cfu) CAPSULE PO SCH ×2 (09:03→17:48)
[2017-04-13] MEDS: ASCORBIC ACID 500 MG TABLET PO SCH (09:04)
[2017-04-13] MEDS: PredniSONE 20 MG TABLET PO SCH (09:04)
[2017-04-13] MEDS: ESCITALOPRAM 20 MG TABLET PO SCH (09:05)
[2017-04-13] MEDS: COENZYME Q-10 200mg TABLET PO SCH (09:05)
[2017-04-13] MEDS: NYSTATIN 500,000 units/5 ml ORAL LIQUID PO SCH ×5 (09:06→21:46)
[2017-04-13] MEDS: GUAIFENESIN 400MG TABLET PO SCH ×4 (09:06→21:46)
[2017-04-13] MEDS: SENNA + DOCUSATE TABLET PO SCH ×2 (09:06→21:46)
[2017-04-13] MEDS: MAGNESIUM OXIDE 400 MG TABLET PO SCH (09:06)
[2017-04-13] MEDS: SPIRONOLACTONE 25 MG TABLET PO SCH (09:07)
[2017-04-13] MEDS: ACETAMINOPHEN 325 MG TABLET PO PRN (09:07)
[2017-04-13] MEDS: SIMETHICONE 80 MG CHEWABLE TABLET PO SCH ×4 (09:07→21:46)
--- NOTE | 2017-04-13 10:49 | IRU Progress Note ---
- Subjective/Serverity of Illness Date: 04/13/17 Mr. Hutchinson states that he is trying to have a bowel movement. Denies current respiratory difficulty and he is sleeping better at night. Pain management appears to be adequate. Still has a loose cough. He remains afebrile and without evidence of active infection. Arrangements had been made for his dismissal today to [facility]. However they are still seeking some equipment that has been requested by the family. Anticipate this will be available on Sunday and therefore we'll keep him until Sunday. Patient and his have been advised of this. Exam Vital Signs: Temperature 97.6 F 04/13/17 08:00 Pulse Rate 86 04/13/17 08:00 Respiratory Rate 18 04/13/17 08:00 Blood Pressure 122/76 04/13/17 08:00 Pulse Oximetry 98 04/13/17 08:00 Height/Weight/BMI: Height 1.7 m Weight 132 kg Body Mass Index 45.0 - Constitutional Present: no acute distress, well nourished, well developed, morbidly obese, cooperative - Routine HEENT Exam Eye: Present: EOMI ENT: Present: mucous membranes moist, oropharynx clear - Routine Respiratory Exam Present: decreased breath sounds, CTA bilaterally. Absent: wheezes - Routine Cardiovascular Exam Present: S1, S2, irregularly irregular. Absent: murmur - Routine Abdominal Exam Present: soft, normoactive bowel sounds, non distended. Absent: tenderness - Routine Extremities Exam Present: no edema - Routine Skin Exam Present: dry, warm, lesions (multiple skin lesions without change.), wounds - Routine Neurological Exam Present: alert, oriented X3, CN II-XII intact - Routine Psychiatric Exam Present: normal affect, cooperative. Absent: good insight, good judgment IRU A/P (1) Myopathy Current visit: Yes Status: Acute Remains plateaued on therapy. Anticipate transfer to long-term care. (2) Influenza A Current visit: Yes Status: Resolved (3) Rheumatoid arthritis Qualifiers: Rheumatoid arthritis location: multiple sites Rheumatoid factor presence: unspecified presence Qualified Code(s): M06.9 - Rheumatoid arthritis, unspecified Current visit: Yes Status: Chronic (4) Atrial fibrillation, chronic Current visit: Yes Status: Chronic INR improved. (5) (HFpEF) heart failure with preserved ejection fraction Current visit: Yes Status: Chronic (6) CKD (chronic kidney disease) stage 3, GFR 30-59 ml/min Current visit: Yes Status: Chronic (7) Squamous cell skin cancer Current visit: Yes Status: Chronic (8) Chronic indwelling Sigala catheter Current visit: Yes Status: Chronic (9) Acute on chronic respiratory failure with hypoxemia Current visit: Yes Status: Acute (10) Acute bronchospasm Current visit: Yes Status: Resolved (11) SONYA (obstructive sleep apnea) Current visit: Yes Status: Chronic (12) Slow transit constipation Current visit: Yes Status: Acute (13) Hyponatremia Current visit: Yes Status: Chronic (14) Neuropathic pain of both legs Current visit: Yes Status: Chronic (15) Syncope Qualifiers: Syncope type: unspecified Qualified Code(s): R55 - Syncope and collapse Current visit: Yes Status: Resolved DVT Prophylaxis: Coumadin Resuscitation Status: Do Not Resuscitate - Course Hospital Course: Pedro Pittman MD: 03/16/17 12:11 Multiple medical problems as outlined. Severe weakness noted. Just getting started with therapies. 03/19/17 12:04 Patient is cooperative and participates with therapy although progress is quite slow. Continues to have expiratory wheezes. He is afebrile. Numerous skin lesions identified. would like to have lidocaine used for dressing removal. I will discuss with wound care. 03/20/17 10:44 Multiple skin lesions will require continued meticulous nursing management. Medically he seems stable. Lungs are clear. INR is therapeutic. He is participating with therapy. 03/22/17 11:35 Slow progression with therapy. Multiple skin lesions noted and being monitored by nursing including wound care nurse. INR subtherapeutic. 03/23/17 11:46 Slow progress with therapy. INR therapeutic. Complains of constipation. 03/26/17 14:53 Progress continues to be slow. Sodium down to 126. Weight was up to 133 and now down to 130 kg. Easy fatigability and continued evidence of critical illness/disuse myopathy. 03/27/17 10:30 Sodium down to 124. He is overdrinking fluids and he was advised not to do that. Now on a fluid restriction. Complains of pain in the right leg heel pad area but also throughout the leg. We will modify the gabapentin dose. 03/29/17 10:09 Patient remains very complex. Diuretics held. Sodium still low 125. Syncope yesterday. Somewhat slow to respond. We will reduce gabapentin. 03/30/17 11:22 Patient is more alert today. Exam is otherwise negative for changes. Weight is up. Sodium 125. Continues to be plateaued with therapy. 04/02/17 10:58 Patient continues to plateau with therapy. He does seem to be more awake and alert with less gabapentin. Sodium improved to 131 which may also help his mentation. Plans are to transfer to [facility] in [place] tomorrow. 04/03/17 11:19 Continues to have very poor exercise tolerance. Likely he is depressed. Continues to work with therapy. Placement in progress. 04/05/17 10:52 He is non-participatory with physical therapy for the most part. He is now making progress with occupational therapy. Had a difficult night with cough. He is on doxycycline for an infected sebaceous cyst. Placement in progress. 04/06/17 11:19 The above statement should read that he is "not making progress with occupational therapy." Continues to be in a plateau pattern with regard to therapy. Continues to have a cough. He is on doxycycline. Placement is in progress. 04/09/17 10:58 Patient is medically stable. He is not making progress with therapy. Placement in progress. 04/10/17 15:11 Patient continues to be medically stable. He is not progressing with therapy. Getting some tachycardia with albuterol so we will change to Xopenex. 04/12/17 11:27 Patient is not progressing with therapy and is not appropriate for acute inpatient rehabilitation. He is medically stable. Placement efforts and progress. 04/13/17 10:48 Medically stable. Discharge delayed while snf obtains equipment as requested by family. - Interventions to Obtain Goals PT Treatment Plan: Balance/Proprioception, Functional Activities, Gait Training , Patient/Family Education, Therapeutic Exercise OT Treatment Plan: ADL (Basic Care), Balance Training, Pt./Family Education, Ther. Exercise for ADL Goals Progress/Modifications: Anticipate transfer to snf on 04/16/2017
[2017-04-13] MEDS: WARFARIN 5 MG TABLET PO SCH (11:44)
[2017-04-13] MEDS: CALCIUM CARBONATE Chewable 500mg TABLET PO SCH (11:44)
[2017-04-13] MEDS: POLYETHYL GLYCOL 3350 17gm PACKET PO SCH (21:45)
[2017-04-14] MEDS: GABAPENTIN 100 MG CAPSULE PO SCH ×4 (01:14→20:55)
[2017-04-14] MEDS: Oxycodone *IR* 5 MG TABLET PO PRN ×6 (01:15→23:06)
[2017-04-14] MEDS: NALOXEGOL 12.5 MG TABLET PO SCH (05:49)
[2017-04-14] MEDS: PANTOPRAZOLE 40 MG TABLET PO SCH (05:50)
[2017-04-14] MEDS: LEVOTHYROXINE 50 MCG TABLET PO SCH (05:51)
[2017-04-14] MEDS: FUROSEMIDE 40 MG TABLET PO SCH ×2 (06:02→17:42)
--- NOTE | 2017-04-14 07:51 | Pharmacy Consult ---
Pharmacy Consult-Warfarin - Laboratory Information 04/11/17 04/12/17 04/13/17 04:22 15:27 04:56 INR 1.46 H 1.69 H 1.76 H 04/14/17 06:00 INR 1.87 H - Consult Information Warfarin Dosing Protocol: Day 76 y.o. Male with history of A. Fib. and chronic anticoagulation with warfarin. Home dose reported as Warfarin 2mg daily, except on Fridays takes 1mg. goal INR range= 2.0 to 3.0 Date INR dose 03/15 - 2 mg 03/16 2.18 2 mg 03/17 2.04 2 mg 03/18 2.00 2.5 mg 03/19 2.05 2.5 mg 03/20 2.09 2.5 mg 03/21 1.81 3 mg 03/22 1.88 3 mg 03/23 2.09 3 mg 03/24 2.35 3 mg 03/25 2.59 2.5 mg daily and INR's . , Courtney 03/29 2.62 2.5 mg daily and change INR's to Courtney, We 04/04 2.20 continue Warfarin 2.5 mg daily & INR's Courtney, We 04/08 1.60 change Warfarin to 3 mg daily and continue INR's Courtney, We 04/11 1,45 change Warfarin to 5 mg daily and continue INR's Courtney, We 04/12 1.69 5 mg 04/13 1.76 5 mg 04/14 1.87 Plan 5 mg INR is subtherapeutic, will order Warfarin 5 mg p.o. todaily. The Pharmacy will continue to monitor and adjust the warfarin dose. Thank you for the Warfarin Dosing Protocol, Baudilio Blackmon, Pharmacist.
[2017-04-14] MEDS: POLYETHYL GLYCOL 3350 17gm PACKET PO SCH ×2 (09:12→20:57)
[2017-04-14] MEDS: ACETAMINOPHEN 325 MG TABLET PO PRN (09:13)
[2017-04-14] MEDS: NYSTATIN 500,000 units/5 ml ORAL LIQUID PO SCH ×4 (09:13→20:57)
[2017-04-14] MEDS: ESCITALOPRAM 20 MG TABLET PO SCH (09:14)
[2017-04-14] MEDS: SENNA + DOCUSATE TABLET PO SCH ×2 (09:14→20:55)
[2017-04-14] MEDS: LACTOBACILLUS (15B cfu) CAPSULE PO SCH ×2 (09:14→17:42)
[2017-04-14] MEDS: SIMETHICONE 80 MG CHEWABLE TABLET PO SCH ×4 (09:14→20:55)
[2017-04-14] MEDS: SPIRONOLACTONE 25 MG TABLET PO SCH (09:14)
[2017-04-14] MEDS: FERROUS SULFATE 324 MG TABLET PO SCH (09:15)
[2017-04-14] MEDS: PredniSONE 20 MG TABLET PO SCH (09:15)
[2017-04-14] MEDS: COENZYME Q-10 200mg TABLET PO SCH (09:15)
[2017-04-14] MEDS: MAGNESIUM OXIDE 400 MG TABLET PO SCH (09:15)
[2017-04-14] MEDS: ASCORBIC ACID 500 MG TABLET PO SCH (09:16)
[2017-04-14] MEDS: GUAIFENESIN 400MG TABLET PO SCH ×4 (09:17→20:59)
[2017-04-14] MEDS ORDERED: WARFARIN 5 MG TABLET PO SCH (12:00)
[2017-04-14] MEDS: WARFARIN 5 MG TABLET PO SCH (13:37)
[2017-04-14] MEDS: CALCIUM CARBONATE Chewable 500mg TABLET PO SCH (13:38)
[2017-04-14] MEDS: SALINE FLUSH 10ml SYRINGE IV PRN (17:42)
[2017-04-14] MEDS: BISACODYL 10 MG SUPPOSITORY RECTALLY PRN (19:03)
[2017-04-15] MEDS: GABAPENTIN 100 MG CAPSULE PO SCH ×4 (02:00→21:00)
[2017-04-15] MEDS: Oxycodone *IR* 5 MG TABLET PO PRN ×5 (04:17→21:16)
[2017-04-15] MEDS: NALOXEGOL 12.5 MG TABLET PO SCH (05:37)
[2017-04-15] MEDS: FUROSEMIDE 40 MG TABLET PO SCH ×3 (05:38→17:33)
[2017-04-15] MEDS: LEVOTHYROXINE 50 MCG TABLET PO SCH (05:38)
[2017-04-15] MEDS: SALINE FLUSH 10ml SYRINGE IV PRN ×3 (09:19→17:35)
[2017-04-15] MEDS: NYSTATIN 500,000 units/5 ml ORAL LIQUID PO SCH ×4 (09:19→20:59)
[2017-04-15] MEDS: COENZYME Q-10 200mg TABLET PO SCH (09:19)
[2017-04-15] MEDS: MAGNESIUM OXIDE 400 MG TABLET PO SCH (09:20)
[2017-04-15] MEDS: FERROUS SULFATE 324 MG TABLET PO SCH (09:20)
[2017-04-15] MEDS: ASCORBIC ACID 500 MG TABLET PO SCH (09:20)
[2017-04-15] MEDS: SENNA + DOCUSATE TABLET PO SCH ×2 (09:20→21:00)
[2017-04-15] MEDS: SIMETHICONE 80 MG CHEWABLE TABLET PO SCH ×4 (09:20→21:00)
[2017-04-15] MEDS: PredniSONE 20 MG TABLET PO SCH (09:21)
[2017-04-15] MEDS: ESCITALOPRAM 20 MG TABLET PO SCH (09:21)
[2017-04-15] MEDS: LACTOBACILLUS (15B cfu) CAPSULE PO SCH ×2 (09:21→17:31)
[2017-04-15] MEDS: SPIRONOLACTONE 25 MG TABLET PO SCH (09:21)
[2017-04-15] MEDS: POLYETHYL GLYCOL 3350 17gm PACKET PO SCH ×2 (09:22→20:59)
[2017-04-15] MEDS: PANTOPRAZOLE 40 MG TABLET PO SCH (09:22)
[2017-04-15] MEDS: GUAIFENESIN 400MG TABLET PO SCH ×4 (09:22→21:01)
[2017-04-15] MEDS: WARFARIN 5 MG TABLET PO SCH (13:28)
[2017-04-15] MEDS: CALCIUM CARBONATE Chewable 500mg TABLET PO SCH (13:28)
--- NOTE | 2017-04-15 14:14 | Pharmacy Consult ---
Pharmacy Consult-Warfarin - Laboratory Information 04/11/17 04/12/17 04/13/17 04:22 15:27 04:56 INR 1.46 H 1.69 H 1.76 H 04/14/17 04/15/17 06:00 04:10 INR 1.87 H 1.93 H - Consult Information Warfarin Dosing Protocol: Day 32 76 y.o. Male with history of A. Fib. and chronic anticoagulation with warfarin. Home dose reported as Warfarin 2mg daily, except on Fridays takes 1mg. goal INR range= 2.0 to 3.0 Date INR dose 03/15 - 2 mg 03/16 2.18 2 mg 03/17 2.04 2 mg 03/18 2.00 2.5 mg 03/19 2.05 2.5 mg 03/20 2.09 2.5 mg 03/21 1.81 3 mg 03/22 1.88 3 mg 03/23 2.09 3 mg 03/24 2.35 3 mg 03/25 2.59 2.5 mg daily and INR's , 03/29 2.62 2.5 mg daily and change INR's to Courtney, We 04/04 2.20 continue Warfarin 2.5 mg daily & INR's Courtney, We 04/08 1.60 change Warfarin to 3 mg daily and continue INR's Courtney, We 04/11 1,45 change Warfarin to 5 mg daily and continue INR's Courtney, We 04/12 1.69 5 mg 04/13 1.76 5 mg 04/14 1.87 5 mg 04/15 1.93 Plan 5 mg INR is subtherapeutic, will order Warfarin 5 mg p.o. todaily. The Pharmacy will continue to monitor and adjust the warfarin dose. Thank you for the Warfarin Dosing Protocol, Baudilio Blackmon, Pharmacist.
[2017-04-15] MEDS: BISACODYL 10 MG SUPPOSITORY RECTALLY PRN (16:17)
[2017-04-15] MEDS: ACETAMINOPHEN 325 MG TABLET PO PRN (16:17)
[2017-04-16] MEDS: GABAPENTIN 100 MG CAPSULE PO SCH ×2 (01:43→05:37)
[2017-04-16] MEDS: Oxycodone *IR* 5 MG TABLET PO PRN ×2 (01:44→08:48)
[2017-04-16] MEDS: LEVOTHYROXINE 50 MCG TABLET PO SCH (05:37)
[2017-04-16] MEDS: NALOXEGOL 12.5 MG TABLET PO SCH (05:37)
[2017-04-16] MEDS: PANTOPRAZOLE 40 MG TABLET PO SCH (05:38)
[2017-04-16 08:44] VITALS: BP 104/62; PULSE 77; RESP 24; TEMP 97.5; O2SAT 96
[2017-04-16] MEDS: FERROUS SULFATE 324 MG TABLET PO SCH (08:45)
[2017-04-16] MEDS: POLYETHYL GLYCOL 3350 17gm PACKET PO SCH (08:45)
[2017-04-16] MEDS: SALINE FLUSH 10ml SYRINGE IV PRN (08:45)
[2017-04-16] MEDS: ASCORBIC ACID 500 MG TABLET PO SCH (08:45)
[2017-04-16] MEDS: NYSTATIN 500,000 units/5 ml ORAL LIQUID PO SCH (08:45)
[2017-04-16] MEDS: LACTOBACILLUS (15B cfu) CAPSULE PO SCH (08:45)
[2017-04-16] MEDS: PredniSONE 20 MG TABLET PO SCH (08:45)
[2017-04-16] MEDS: FUROSEMIDE 40 MG TABLET PO SCH (08:46)
[2017-04-16] MEDS: SPIRONOLACTONE 25 MG TABLET PO SCH (08:47)
[2017-04-16] MEDS: COENZYME Q-10 200mg TABLET PO SCH (08:47)
[2017-04-16] MEDS: ESCITALOPRAM 20 MG TABLET PO SCH (08:47)
[2017-04-16] MEDS: SENNA + DOCUSATE TABLET PO SCH (08:47)
[2017-04-16] MEDS: GUAIFENESIN 400MG TABLET PO SCH (08:48)
[2017-04-16] MEDS: MAGNESIUM OXIDE 400 MG TABLET PO SCH (08:48)
[2017-04-16] MEDS: SIMETHICONE 80 MG CHEWABLE TABLET PO SCH (08:48)
[2017-04-16] MEDS ORDERED: GABAPENTIN 300 MG CAPSULE PO ONE (09:45)
[2017-04-16] MEDS ORDERED: Oxycodone *IR* 5 MG TABLET PO ONE (09:50)
--- NOTE | 2017-04-16 09:52 | Extended Care Facility Orders ---
Admission Orders Admit to:: [facility] Allergies/Adverse Reactions: Allergies hydroxychloroquine Allergy (Severe, Verified 03/15/17 18:13) sores on legs, feet, mouth Iodine and Iodide Containing Produc Allergy (Severe, Verified 03/15/17 18:13) throat started to close influenza virus vaccine, specific Allergy (Intermediate, Verified 03/15/17 18:13 ) sick for 3 months silver Allergy (Intermediate, Verified 03/15/17 18:13) breaks out, sulfasalazine Allergy (Intermediate, Verified 03/15/17 18:13) caused afib vancomycin Allergy (Intermediate, Verified 03/15/17 18:13) Rash zinc oxide Allergy (Intermediate, Verified 03/15/17 18:13) Rash amoxicillin Allergy (Mild, Verified 03/15/17 18:13) leg swelling tobramycin Allergy (Mild, Verified 03/15/17 18:13) facial edema, elevated HR, SOB cephalexin Allergy (Unknown, Verified 03/15/17 18:13) short of breath, rash ciprofloxacin Allergy (Unknown, Verified 03/15/17 18:13) short of breath, joints ache clavulanic acid Allergy (Unknown, Verified 03/15/17 18:13) leg swelling dronedarone Allergy (Unknown, Verified 03/15/17 18:13) famotidine Allergy (Unknown, Verified 03/15/17 18:13) Joint Pain Penicillins Allergy (Verified 03/15/17 18:13) short of breath, brain fog, leg swelling methotrexate Adverse Reaction (Severe, Verified 03/15/17 18:13) skin cancers alginate dressing Adverse Reaction (Mild, Verified 03/15/17 18:13) feels like on fire acetaminophen Adverse Reaction (Unknown, Verified 03/15/17 18:13) liver failure collagen firocol Adverse Reaction (Mild, Uncoded 03/15/17 18:13) juan Admitting Diagnosis: Disuse myopathy Admitting Physician: Pedro Pittman MD Attending Physician: Pedro Pittman MD Code Status: Do Not Resuscitate Anticiapted Length of Stay: greater than 30 days Rehab Potential: fair Rehab Prognosis: fair Diet: 03/16/17 Lunch Cardiac Diet [DIET] Fat Content: LOW Food Consistency: MECSOF Guest Tray:: [id number]_NO Comment: spouse at bedside assisting with care daily Wound/Incision Care: See wound care notes. Recommend wound care consult. May use Facility Protocol or Standing Orders: Yes May have flu vaccine: Yes Evaluations/Treatment: PT, OT Senior Living Certification: I certify that SNF services are not required to be given on an Inpatient basis. - Additional Information In Event of Arrest: Do Not Start CPR Resident is Aware of Diagnosis: Yes Referrals: Doug Ang MD [Family Provider] - (f/u with PCP 1-2 weeks after discharge.)
--- NOTE | 2017-04-16 09:56 | IRU Progress Note ---
- Subjective/Serverity of Illness Date: 04/16/17 Mr. Hutchinson was interviewed and examined in his room with his and therapists present. He states he is doing reasonably well. His would like him to have a 5 mg oxycodone plus gabapentin 300 mg prior to transfer due to pain anticipated during the transfer. I expressed my concern to them with regard to oversedation. Patient states that this will not make him oversedated as he has taken 10 mg previously along with the gabapentin. Order is given. Questions were addressed. Arrangements have been made for safe transfer to [facility] in [place]. He continues to be very weak. However he is medically stable. Exam Vital Signs: Temperature 97.5 F 04/16/17 08:40 Pulse Rate 77 04/16/17 08:40 Respiratory Rate 24 04/16/17 08:40 Blood Pressure 104/62 04/16/17 08:40 Pulse Oximetry 96 04/16/17 08:40 Height/Weight/BMI: Height 1.7 m Weight 132 kg Body Mass Index 45.0 - Constitutional Present: no acute distress, well nourished, well developed, morbidly obese, cooperative - Routine HEENT Exam Head: Present: normocephalic Eye: Present: EOMI ENT: Present: mucous membranes moist - Routine Neck Exam Present: supple - Routine Respiratory Exam Present: CTA bilaterally. Absent: wheezes - Routine Cardiovascular Exam Present: S1, S2, irregularly irregular. Absent: murmur - Routine Abdominal Exam Present: soft, normoactive bowel sounds, non distended. Absent: tenderness - Routine Extremities Exam Present: no edema, pulses intact - Routine Skin Exam Present: dry, warm, lesions, wounds - Routine Neurological Exam Present: alert, oriented X3, CN II-XII intact - Routine Psychiatric Exam Present: normal affect IRU A/P (1) Myopathy Current visit: Yes Status: Acute Patient continues to struggle with overall muscle weakness with particular attention to the proximal musculature. Unfortunately, he has plateaued with therapy and is no longer a candidate for acute inpatient rehabilitation. (2) Influenza A Current visit: Yes Status: Resolved (3) Rheumatoid arthritis Qualifiers: Rheumatoid arthritis location: multiple sites Rheumatoid factor presence: unspecified presence Qualified Code(s): M06.9 - Rheumatoid arthritis, unspecified Current visit: Yes Status: Chronic (4) Atrial fibrillation, chronic Current visit: Yes Status: Chronic (5) (HFpEF) heart failure with preserved ejection fraction Current visit: Yes Status: Chronic (6) CKD (chronic kidney disease) stage 3, GFR 30-59 ml/min Current visit: Yes Status: Chronic (7) Squamous cell skin cancer Current visit: Yes Status: Chronic (8) Chronic indwelling Sigala catheter Current visit: Yes Status: Chronic (9) Acute on chronic respiratory failure with hypoxemia Current visit: Yes Status: Acute (10) Acute bronchospasm Current visit: Yes Status: Resolved (11) SONYA (obstructive sleep apnea) Current visit: Yes Status: Chronic (12) Slow transit constipation Current visit: Yes Status: Acute (13) Hyponatremia Current visit: Yes Status: Chronic (14) Neuropathic pain of both legs Current visit: Yes Status: Chronic (15) Syncope Qualifiers: Syncope type: unspecified Qualified Code(s): R55 - Syncope and collapse Current visit: Yes Status: Resolved DVT Prophylaxis: Coumadin Resuscitation Status: Do Not Resuscitate - Course Hospital Course: Pedro Pittman MD: 03/16/17 12:11 Multiple medical problems as outlined. Severe weakness noted. Just getting started with therapies. 03/19/17 12:04 Patient is cooperative and participates with therapy although progress is quite slow. Continues to have expiratory wheezes. He is afebrile. Numerous skin lesions identified. would like to have lidocaine used for dressing removal. I will discuss with wound care. 03/20/17 10:44 Multiple skin lesions will require continued meticulous nursing management. Medically he seems stable. Lungs are clear. INR is therapeutic. He is participating with therapy. 03/22/17 11:35 Slow progression with therapy. Multiple skin lesions noted and being monitored by nursing including wound care nurse. INR subtherapeutic. 03/23/17 11:46 Slow progress with therapy. INR therapeutic. Complains of constipation. 03/26/17 14:53 Progress continues to be slow. Sodium down to 126. Weight was up to 133 and now down to 130 kg. Easy fatigability and continued evidence of critical illness/disuse myopathy. 03/27/17 10:30 Sodium down to 124. He is overdrinking fluids and he was advised not to do that. Now on a fluid restriction. Complains of pain in the right leg heel pad area but also throughout the leg. We will modify the gabapentin dose. 03/29/17 10:09 Patient remains very complex. Diuretics held. Sodium still low 125. Syncope yesterday. Somewhat slow to respond. We will reduce gabapentin. 03/30/17 11:22 Patient is more alert today. Exam is otherwise negative for changes. Weight is up. Sodium 125. Continues to be plateaued with therapy. 04/02/17 10:58 Patient continues to plateau with therapy. He does seem to be more awake and alert with less gabapentin. Sodium improved to 131 which may also help his mentation. Plans are to transfer to [facility] in [place] tomorrow. 04/03/17 11:19 Continues to have very poor exercise tolerance. Likely he is depressed. Continues to work with therapy. Placement in progress. 04/05/17 10:52 He is non-participatory with physical therapy for the most part. He is now making progress with occupational therapy. Had a difficult night with cough. He is on doxycycline for an infected sebaceous cyst. Placement in progress. 04/06/17 11:19 The above statement should read that he is "not making progress with occupational therapy." Continues to be in a plateau pattern with regard to therapy. Continues to have a cough. He is on doxycycline. Placement is in progress. 04/09/17 10:58 Patient is medically stable. He is not making progress with therapy. Placement in progress. 04/10/17 15:11 Patient continues to be medically stable. He is not progressing with therapy. Getting some tachycardia with albuterol so we will change to Xopenex. 04/12/17 11:27 Patient is not progressing with therapy and is not appropriate for acute inpatient rehabilitation. He is medically stable. Placement efforts and progress. 04/13/17 10:48 Medically stable. Discharge delayed while senior care obtains equipment as requested by family. 04/16/17 09:55 Arrangements have been made for safe transfer to long-term care today. Please see above discussion regarding his pain medication. - Interventions to Obtain Goals PT Treatment Plan: Balance/Proprioception, Functional Activities, Gait Training , Patient/Family Education, Therapeutic Exercise OT Treatment Plan: ADL (Basic Care), Balance Training, Pt./Family Education, Ther. Exercise for ADL
--- NOTE | 2017-04-16 10:01 | Pharmacy Consult ---
Pharmacy Consult-Warfarin - Laboratory Information 04/11/17 04/12/17 04/13/17 04:22 15:27 04:56 INR 1.46 H 1.69 H 1.76 H 04/14/17 04/15/17 04/16/17 06:00 04:10 04:06 INR 1.87 H 1.93 H 2.01 H - Consult Information Warfarin Dosing Protocol: Day 76 y.o. Male with history of A. Fib. and chronic anticoagulation with warfarin. Home dose reported as Warfarin 2mg daily, except on Fridays takes 1mg. goal INR range= 2.0 to 3.0 Date INR dose 03/15 - 2 mg 03/16 2.18 2 mg 03/17 2.04 2 mg 03/18 2.00 2.5 mg 03/19 2.05 2.5 mg 03/20 2.09 2.5 mg 03/21 1.81 3 mg 03/22 1.88 3 mg 03/23 2.09 3 mg 03/24 2.35 3 mg 03/25 2.59 2.5 mg daily and INR's . , Courtney 03/29 2.62 2.5 mg daily and change INR's to Courtney, We 04/04 2.20 continue Warfarin 2.5 mg daily & INR's Courtney, We 04/08 1.60 change Warfarin to 3 mg daily and continue INR's Courtney, We 04/11 1,45 change Warfarin to 5 mg daily and continue INR's Courtney, We 04/12 1.69 5 mg 04/13 1.76 5 mg 04/14 1.87 5 mg 04/15 1.93 5 mg 04/16 2, Plan to continue 5 mg po daily. INR is subtherapeutic, will order Warfarin 5 mg p.o. daily. The patient may be discharged today. Conversed with ANNABELLA Brown, and it was decided to continue the Warfarin 5 mg daily for one week and then have patient get an INR. The Pharmacy will continue to monitor and adjust the warfarin dose. Thank you for the Warfarin Dosing Protocol, Baudilio Blackmon, Pharmacist.
--- NOTE | 2017-04-16 10:08 | Wound Care Progress Note ---
Wound Center Progress Note: Contacted Ziggy Aquino about pt arriving today, at this time spoke nurse who would be in his care. Explained at this time all the care we have been giving, in detail gave product names for their reference. Spoke with Lisa.
[2017-04-16] MEDS: CALCIUM CARBONATE Chewable 500mg TABLET PO SCH (11:54)
[2017-04-16] MEDS: WARFARIN 5 MG TABLET PO SCH (11:56)
--- NOTE | 2017-04-16 15:43 | Discharge Summary ---
Discharge Information Date of admission: 03/15/17 15:34 Anticipated date of discharge: 04/16/17 Attending Physician: Pedro Pittman MD Primary care physician: Doug Ang MD Consults: 03/15/17 16:08 W[facility]in [facility] Consult [CONS] Routine Reason for consultation: wants to know dressing options for knee wounds 03/15/17 16:44 Physician Consult [CONS] Routine Consulting Provider: Anthony Obrien Reason For Exam: medical mgmt Ordering Provider has Notified Plant Senior Manager: Yes 03/28/17 18:15 Physician Consult [CONS] Routine Consulting Provider: Elías Alvarado Reason For Exam: wounds per wound team Ordering Provider has Notified Plant Senior Manager: No 03/30/17 15:18 Physician Consult [CONS] Routine Consulting Provider: Jose Mcintosh Reason For Exam: chf, help with diuretic dosing Ordering Provider has Notified Plant Senior Manager: Yes Comment: i've already discussed with dr mcintosh 04/03/17 15:00 Dietary Consult [CONS] Routine Comment: Reason For Exam: malnourished; low albumin 04/06/17 14:06 Doctor [Physician Consult] [CONS] Routine Consulting Provider: Ruchi Sterling Reason For Exam: review for placement Ordering Provider has Notified Plant Senior Manager: Yes 04/10/17 11:39 Physician Consult [CONS] Routine Consulting Provider: [facility] Reason For Exam: ICF Ordering Provider has Notified Plant Senior Manager: Yes - Discharge Diagnosis (1) Myopathy Status: Acute (2) Influenza A Status: Resolved (3) Rheumatoid arthritis Status: Chronic (4) Atrial fibrillation, chronic Status: Chronic (5) (HFpEF) heart failure with preserved ejection fraction Status: Chronic (6) CKD (chronic kidney disease) stage 3, GFR 30-59 ml/min Status: Chronic (7) Squamous cell skin cancer Status: Chronic (8) Chronic indwelling Sigala catheter Status: Chronic (9) Acute on chronic respiratory failure with hypoxemia Status: Acute (10) Acute bronchospasm Status: Resolved (11) SONYA (obstructive sleep apnea) Status: Chronic (12) Slow transit constipation Status: Acute (13) Hyponatremia Status: Chronic (14) Neuropathic pain of both legs Status: Chronic (15) Syncope Status: Resolved 1. Severe disuse myopathy 2. Acute on chronic respiratory failure with hypoxemia 3. Diastolic heart failure (heart failure with preserved ejection fraction) 4. Rheumatoid arthritis with chronic pain 5. Influenza A recent diagnosis 6. Obstructive sleep apnea requiring BiPAP 7. Multiple skin wounds and skin cancers 8. Squamous cell carcinoma, severe, left lower extremity, chronic - Laboratory Labs: 04/13/17 04:56 04/13/17 04:56 - Microbiology Microbiology 04/08/17 22:00 Sputum, Expectorated Gram Stain - Final 04/08/17 22:00 Sputum, Expectorated Sputum Culture - Final Staphylococcus aureus, MRSA Gram Negative Bang Normal Respiratory Daryl 04/01/17 19:43 Urine, Cath Sigala Urine Culture - Final Mixed Bacterial Daryl 03/30/17 02:46 Urine, Cath Sigala, Chronic Urine Culture - Final Mixed Bacterial Daryl Present -No further testing will be performed History of Present Illness HPI: Mr. Hutchinson is a 76-year-old male followed by Dr. Ang in [place]. He was referred by Dr. Shaw Nguyen, hospitalist at [facility]. He had been admitted to [facility] on 02/26/2017 with severe weakness and dyspnea and was diagnosed with influenza A by PCR. He continued to have evidence of heart failure with preserved ejection fraction with variable weights, peripheral edema and hyponatremia. He was treated with diuretics. He was noted to be extremely weak and had evidence of proximal muscle weakness consistent with disuse myopathy. For these reasons it was determined that he would be a good candidate for inpatient rehabilitation and he was transferred to [facility] inpatient rehabilitation on 03/15/2017 for a multidisciplinary, intensive approach with medical supervision. Hospital Course This is a general summary of the patient's hospital course. For more details refer to the complete medical record. He was admitted to acute inpatient rehabilitation for medical supervision of his multiple medical problems as well as intensive multidisciplinary approach with PT and OT. Medically, he had several issues we monitored and managed. He had multiple skin lesions many of which were related to underlying basal cell carcinoma based on appearance. He had a large squamous cell skin cancer involving the left lower extremity. He was monitored and treated by wound care as well as by rehabilitation nursing in this regard. His skin was very fragile. In addition, the patient developed a cough. Chest radiograph was obtained and was negative for acute infiltrate. He did have evidence of an infected sebaceous cyst and was placed on doxycycline. He also developed some conjunctivitis. All of these symptoms fairly well resolved. He was treated with BiPAP at night for his severe obstructive sleep apnea. He initially had acute on chronic respiratory failure requiring supplemental oxygen. This improved as time went on. He also had atrial fibrillation and his Coumadin dose was monitored and managed by the pharmacy. He had evidence of chronic kidney disease. His final creatinine was 0.9. He was seen by occupational therapy with the following functional gains identified: Eating was standby assist upon admission and dismissal. Grooming was initially standby assist and ultimately he refused. Bathing ability was initially total assistance and he refused subsequently. Upper body dressing was moderate assistance upon admission and dismissal. Lower body dressing was total assistance upon admission and dismissal. Total assistance was required upon admission and dismissal for toileting assist, toilet transfer assist and bed/ chair/wheelchair transfers. He was seen by physical therapy. Total assistance was required for bed/chair/ wheelchair transfers upon admission and dismissal and this was the same for toilet assistance. He was unsafe for car transfers. Initially he took about 3 steps and could walk 3 feet with total assistance but subsequently he could not tolerate any ambulation. He was extremely weak. Multiple efforts were undertaken in an effort to encourage him to progress with therapy. Unfortunately he was extremely weak and could not progress. He plateaued. Care management was extensively involved with the patient and his in finding appropriate placement. Multiple referrals were made including to long-term acute care facilities as well as multiple nursing facilities. He was accepted at [facility] for long-term care. He was transferred in medically stable condition on 04/16/2017. I contacted Dr. Ang 's office to advise them of this transfer and left a message. In addition, please see letter to referring physician. Hospital course: Plan Agree with admission to inpatient rehabilitation unit under the care of Dr. Pittman for significant myopathy and weakness secondary to recent acute hospitalization and illness. Patient does have a very complex past medical history and current chronic comorbidities. Appreciate hospitalist consultation for assistance in medical management. Consultation placed with the wound care team for evaluation and recommendations of ongoing wound care. Left leg squamous cell carcinoma-stable. Patient scheduled to follow with radiation oncology once medically improved. does report that she would like to use her homemade "save" which contains eggplant an essential oil. Consult to pharmacy for ongoing management of INR and Coumadin dosing. Patient has known positive urine culture for VRE. Will forego any treatment. Given chronic colonization of indwelling Sigala catheter Patient does wish to be a full code and this orders written. Appreciate medical consultation, the hospitalist services will continue to follow patient medically manage his existing comorbidities during his stay on IRU unit. At time of discharge his medical care will return to his primary care provider in Dr. Doug Ang in [place] 03/18/17 Give additional Lasix 40 mg PO now; start daily weights. Sounds like he has a hx of flash pulmonary edema; reports he was previously on Lasix TID then was decreased to BID -- monitor fluid status closely as we may need to provide extra diuresis periodically versus adding another dose in the afternoon. Will recheck BMP in am. Change dosing of gabapentin to 300 mg TID and 300 mg at 0200, per 's request. Increase simethicone to home dosing schedule. Resume levothyroxine 50 mcg -- he took this in [place]. Consider wound consultation. Suspect mild leukocytosis is chronic given prednisone use though will recheck CBC in am to document stability. INR is therapeutic. 03/20/17 Na decreased to 125 but exam suggests fluid positive state. Will increase Lasix to 60 mg BID, starting this afternoon. Will resume spironolactone. Wait on resuming KDur since K was still elevated at 4.8 but we may need to resume K soon. Renal status stable Rn to call wound team regarding excoriation under left breast. INR is therapeutic; high risk medication in use. Encourage PT/OT/activity as siva. Discussed with Dr. Pittman and with Dr. Ruvalcaba. 2/2 Given increased edema and increase in weight. We will give an additional 40 milligrams of Lasix both this evening and tomorrow evening. Recheck BMP tomorrow morning to follow electrolytes and renal function. Patient may need additional testing supplementation. Discussed importance of bowel motivation. Continue on current regimen Oral Dulcolax, Colace, senna plus, MiraLAX, milk of magnesia. Did also add Dulcolax suppository and encouraged nursing to try a brown cow. Recommend using suppository. By this evening if no bowel movements. This will also help with fluid retention and edema. Otherwise doing well. 2/3 His wt is up 6kg since yesterday which is likely an error. Clinically this does not appear to be the case. He is difficult to weigh. Will reweigh in the am. Will cancel the extra dose of Lasix as ordered this evening given his drop in sodium. His urine is dark, breathing is ok and swelling is less. Likely doesn't need further diuresis. Sodium down to 126 from 132 yesterday. Will continue to follow. Case discussed with Dr. Thomas. 03/27 Sodium is again down to 124. Nursing staff does report patient drinks "numerous pitchers of water a day". This is likely attributing to hyponatremia. Weight yesterday at baseline admission weight. Continue to watch daily weights Will decrease second Lasix dose to 40mg at 1400 and continue with 60 mg in the am 03/28 Recurrent syncope -- check EKG, trop x3, CT head, CXR Acute encephalopathy -- poss r/t hyponatremia; Na down to 123 today ? intervascularly dry Hold Lasix this afternoon. Hold metolazone. Give NS 500 mL IVF today. Cont wound care -- asks about dsg options other than Mepilex EKG personally reviewed: A-fib with controlled rate; No ST elevation/depression ; RBBB; +Q wave lat leads CXR personally reviewed: no pulmonary congestion/infiltrate Trop #1 = 0.[address] pending. I spoke with Dr. Ang from [place]. During his 90+ day SNF stay he showed only minimal improvement in functional status. He tends to run about 128-130 on sodium level, with elevated bicarb as well. He has had several syncopal episodes during his SNF stay. Diuretics at time of dc were: Spironolactone 25 mg BID, metolazone 5 mg daily, and Lasix [address] Ang noted anasarca while at SNF. LTC placement was recommended but pt/ declined. 03/29 Encephalopathy is better today. Na still low but increased to 125 after fluid bolus yesterday/holding diuretics. He had Lasix this morning but will hold the rest of his diuretics today. Recheck BMP/mg in am to re-eval electrolytes/renal function and possibly resume diuretics. I did reach Dr. Ang yesterday, who reported that Devendra was on Spironolactone 25 mg BID, metolazone 5 mg daily, and Lasix 80 mg BID while at SNF in [place]. Oxycodone and gabapentin doses reduced today per Dr. Pittman. Movantik started for opioid induced constipation IRU team meeting planned this afternoon to discuss discharge plans. 03/30 Multifactorial encephalopathy -- Very drowsy with delayed processing and/or verbal responses. Gabapentin dose further adjusted per Dr. Pittman. Could be r/t hyponatremia; difficult to assess intravascular fluid status. Weight is down from 135 kg yesterday to 129.5 this am, and diuretics have been on hold for 2 days. ABG ordered, but pt was not hypercarbic or acidotic. Another consideration is depression, and we may want to consider psych consultation. Case was discussed with Dr. Mcintosh. Spironolactone can cause hyponatremia and he recommends decreasing dose to 25 mg. He also recommends restarting Lasix but continue to hold metolazone, start tele d/t syncope and hx a-fib, tighten fluid restriction from 1500 to 2966-7255 ml/day, check orthostatics if able, and obtain an echo. He will see Devendra either tonight or tomorrow am. In addition, records have been requested from Dr. Cesar's office at [facility] in [place]. He has been afebrile; UC pending. Sigala in place. Pt may have plateaued from a functional perspective and CM is looking into other placement options. Plan - 03/31/17. Mr. Miller multifactorial encephalopathy appears improved today as compared to yesterday. Family expressed concern about increased somnolence this morning after the patient received his gabapentin. Dr. Pittman was contacted and his gabapentin dose was decreased to 100mg TID. Will continue to monitor. Patient was seen by Dr. Mcintosh this morning for further evaluation of his diastolic CHF. He discussed his recommendations with Dr. Moran and stated that he felt the patient was hypovolemic. Will start NS 75cc/hr for hydration. Monitor fluid status closely in addition to urinary output for signs of fluid overload. Given his hyponatremia, will stop his spironolactone, Lasix and KCl and continue to hold his metolazone. Fluid restriction was discontinued. Will continue metoprolol 25mg BID as well as coumadin per Dr. Mcintosh. Will recheck has labs in the AM to monitor blood counts, electrolytes and renal function. Slight increase in leukocytosis at 14.5 with 7% bands. Patient remains afebrile. Prior UA obtained revealed + nitrite with 30-50 WBC and 1+ bacteria. Culture revealed mixed daryl. Will recheck CXR and UA in AM and continue to monitor closely for signs of deterioration or infection. Concern that the patient may have plateaued from a functional perspective. Case management continues to work on discharge planning. Anticipate discharge early next week, hopefully on 04/03/17 to [facility], per family. Plan - 04/01/17. Clinically, Devendra appears improved today with improved mentation after reduction in gabapentin per Dr. Pittman yesterday. He does admit to increased pain to his lower extremities with the reduction in the gabapentin but appreciates the improved mentation. Continue to encourage participation in therapies and pain control per Dr. Pittman. Significant concern and anxiety regarding pain during transfer to [place]. Patient requested to receive Gabapentin 200mg x 1 dose immediately prior to discharge as he received great pain control with the dose and would appreciate the increased somnolence during the ambulance ride. He also requested to be able to receive another dose of gabapentin or pain medication immediately prior to arrival in [place] to maintain his pain medication schedule knowing that he will not be able to receive medications immediately on his arrival to [facility]. Will discuss patient wishes with Dr. Pittman. Patient was seen by Dr. Mcintosh on 03/31/17 and felt the patient was hypovolemic. NS 75cc was stated with improvement in hyponatremia (Na 128). Continue NS 75cc/hr and monitor closely for signs of fluid overload. At the recommendation of Dr. Mcintosh, his spironolactone, Lasix and KCl were discontinued and his metolazone remains on hold given his hypovolemia. Fluid restriction was also lifted. Consider restarting diuretics, possibly at lower dose at time of admission. Will continue metoprolol 25mg BID as well as coumadin per Dr. Mcintosh. Will recheck CBC and BMP in AM to continue to monitor blood counts, electrolytes and renal function. Case management continues to work on discharge planning. Anticipate discharge early next week, hopefully on 04/03/17 to [facility], per family. 04/02/17 Sodium improved to 131. Continue IVF and continue to hold diuretics, appreciate Dr. Mcintosh's expertise. Plans for transfer to [facility] on 04/03 fell through. CM looking at other options. UC from 04/01 shows early growth -- cath specimen. Records received from [facility] in [place] (hospitalist medical director: Dr. Cesar): EF >55 %; longstanding hx of a-fib 04/04/17 Start doxycycline 100 mg twice a day for infected sebaceous cyst. reports he has many allergies. Doxycycline is not listed. Use a warm moist compress to the area throughout the day. Will recheck the area tomorrow. Monitor for fever or worsening symptoms. Doesn' t appear appropriate for I&D at this time. 04/06/17 Continue doxycycline 100 mg twice a day for infected sebaceous cyst. Added probiotic for gastrointestinal health. Erythromycin ointment twice a day for conjunctivitis. Warm moist compresses BID. Will change midline to a PICC line. Dr. Mcintosh had recommended when diuretics are resumed, Lasix be initiated first. Resume Lasix 40 twice a day. Monitor labs. He will likely need Zaroxolyn as well, as this has been the case in the past. Pain control per Dr. Pittman. 04/08/17 Some improvement subjectively in fluid status. Weight have not been monitored due to difficulty. Continue Lasix BID, increase KCL supplement. Continue Aldactone. Repeat labs in AM. Echo attempt was not very successful. He does have a productive cough- will assess sputum cx to better characterize. Continue doxycycline for now. Continue nebs, BIPAP, PRN O2. Add Acapella valve to mobilize secretions. Suspect a heavy degree of Obesity Hypoventilation syndrome. Labs, CXR in AM. Pt did have a large BM. D/W nurses to avoid OH medications unless indicated. and pt. have opted to treat conjunctivitis as detailed in HPI. Will DC e- mycin. continues to heavily direct care. 04/12/17 Repeat CBC, BMP/mg, and INR today to f/u on leukocytosis, hypokalemia, hyponatremia, and renal function since restarting diuretics. D/W pharmacy -- they will monitor INR more closely until it reaches therapeutic level. sputum cx + MRSA, GNR, normal daryl. Suspect colonization given lack of infiltrate on CXR. Furthermore, he just completed a 7-day course of doxy, and culture showed sensitivity to doxy. Medically stable at this time. Time spent with patient: greater than 35 minutes Resuscitation Status: Do Not Resuscitate Discharge Plan - Med Rec/Dispo Referrals/Follow Up: Doug Ang MD [Family Provider] - (f/u with PCP 1-2 weeks after discharge.) [place] Instructions: Warfarin (By mouth), Fall Prevention for Older Adults (GEN ) Prescriptions: New Artificial Tears [Tears Naturale] 1 drops EACH EYE Q4H PRN bottle PRN Reason: Dry Eyes Furosemide [Lasix] 60 mg PO 0700,1700 tab Gabapentin [Neurontin] 200 mg PO 0200,0600,1500,2100 cap Levalbuterol 1.25mg/3ml NEB [XOPENEX 1.25mg/3ml] 1.25 mg AEROSOL RTTID each Levothyroxine Sodium [Synthroid] 50 mcg PO ACB tab Naloxegol [Movantik] 25 mg PO ACB tab Potassium Chloride [K-DUR 20 mEq Tablet] 20 meq PO TIDWM tab Spironolactone [Aldactone] 25 mg PO DAILY tab Warfarin [Coumadin] 5 mg PO NOON #10 tab Bisacodyl EC TAB [Dulcolax] 10 mg PO DAILY PRN tab PRN Reason: Constipation Guaifenesin [Mucinex] 400 mg PO QID tab PEG 3350 17gm PACKET [Miralax] 17 gm PO BID #30 packet Simethicone [Mylicon] 80 mg PO PCHS tab.chew Acetaminophen [Tylenol] 650 mg PO Q6H PRN tab PRN Reason: Pain Continue Cholecalciferol (Vitamin D3) [Vitamin D3] 1 tab PO DAILY Calcium Carb, Cit/Magnesium Ox [Calmag Thins Tablet] 1 each PO NOON Ascorbic Acid 500 mg PO DAILY Metoprolol Tartrate [Lopressor] 25 mg PO BIDWM Escitalopram Oxalate [Lexapro] 20 mg PO DAILY Magnesium Glycinate [Mag Glycinate] 200 mg PO DAILY Lactobacillus Acidophilus [Acidophilus Lactobacilli] 2 each PO DAILY Ferrous Sulfate 325 mg PO DAILY Pantoprazole Tab [Protonix Tab] 1 tab PO ACB Ubidecarenone [Co Q10] 1 cap PO DAILY PredniSONE [Deltasone 20 mg] 20 mg PO WB Senna + Docusate [Senna Plus Tablet] 2 tab PO BID Changed Oxycodone HCl [Oxaydo] 5 mg PO Q4H PRN #50 tablet.orl PRN Reason: Pain Discontinued Potassium Chloride [K-DUR 20 mEq Tablet] 1 tab PO BID Gabapentin [Neurontin] 1 cap PO HS Metolazone [Zaroxolyn] 5 mg PO DAILY Gabapentin 300 mg PO TID PEG 3350 17gm PACKET [Miralax] 17 gm PO DAILY Nystatin Oral Liq. [Mycostatin] 5 ml PO QID Warfarin [Coumadin] 2 mg PO 1700 Spironolactone [Aldactone] 50 mg PO BID Simethicone [Mylicon] 80 mg PO DAILY PRN PRN Reason: Gas Warfarin Sodium [Coumadin] 1 mg PO Furosemide [Lasix] 1 tab PO DAILY Discharge Instructions/Outpatient Orders: BMP - Basic Metabolic - AMS Time Frame: 3 Days, Location: None Selected INR - AMS Time Frame: 3 Days, Location: None Selected MAG - Magnesium - [facility] Time Frame: 3 Days, Location: None Selected - Disposition 04 To [facility] Home/Facility - Dismissal Complete Discharge Instructions are:: Complete
--- NOTE | 2017-04-16 15:56 | Letter to Referring Physician ---
Dear Dr. Ang, This is a brief note to bring you up-to-date on the status of James Hutchinson and his stay on the acute inpatient rehabilitation unit at [facility]. As you are likely aware, this patient was admitted to the [facility] hospital in [place] on 02/26/17 for acute influenza A infection. The patient was stabilized while on the acute level and admitted to inpatient rehabilitation unit at [facility] on March 15, 2017. While on inpatient rehabilitation, this patient was seen by occupational therapy and physical therapy. Despite multiple attempts including cotreatment etc., the patient was unable to progress and did not make significant improvement with regard to therapies. We also monitored and managed the patient' s INR, HFpEF, hyponatremia, acute/chronic respiratory failure while on Acute Rehab. Please see a copy of the history and physical examination as well as discharge summary enclosed with this letter for further details. Dismissal lab values may be summarized as follows: INR was 2.01 on April 16. On April 13 his hemoglobin was 11.5, white count 12,300 (likely elevated due to chronic steroid use). On April 13, his sodium was 134 and potassium 4.2. His weight on March 15 was 130.5 kg and on April 15, 2017 his weight was 132 kg. Most recent chest x-ray failed to reveal definite infiltrate. Thank you for allowing us to be involved in this nice patient's care. Please contact me directly should you have any questions regarding their stay on the inpatient rehabilitation unit. Sincerely, Pedro Pittman M.D.
== END 2017-04-16 10:50 | DRG 91 ==
PROVIDERS: ADMIT Internal Medicine; ATTEND Internal Medicine